=== PATIENT | male | born 1945 | race Caucasian/White ===

== ENCOUNTER 2016-07-26 14:09 | Emergency (ER) | payer OTHER ==
[~2016-07-26] VITALS: Ht 175.3 cm; Wt 111.3 kg
[~2016-07-26 14:09] MED LIST: ALBU0.08 INH; ALLO300T2 PO; ASPI81TA28 PO; ATRINS NEB; CHOL1TAB42 PO; CLC6 PO; DOXY100C2 PO; FINA5TAB PO; FURO80TA63 PO; INSDGIPEN SQ; IPRA1AER2 INH; METO2.5T PO; METO50TA7 PO; NVLGI/PEN SQ; OXGN; POLY335019 PO; POTA20TA16 PO; PRLSR20 PO; PROBCAP PO; SIMV20TA2 PO; SPIR25TA PO; TRAM-10 PO
[2016-07-26 14:13] VITALS: TEMP 36.6; Ht 175.3 cm; Wt 111.3 kg
--- NOTE | 2016-07-26 14:32 | EMERGENCY ROOM VISIT NOTE ---
History First contact with patient: 14:19 Chief Complaint: SHORTNESS OF BREATH Stated Complaint: SOB, IRREGULAR HEARTBEAT, HOT FLASHES, TIRED History of Present Illness The patient is a 70 year old type 2 diabetic male with COPD and CAD who presents to the Emergency Room with complaints of feeling unwell the last 2 days. He is unable to say exactly what is wrong, but says he just doesn't feel like himself. He reports he started to feel somewhat nauseated today. He denies chest pain or shortness of breath. He denies any leg swelling. He reports occasional "hot flashes". He does feel thirsty. He denies any changes to his urine or stool. He tried taking Dulcolax yesterday and now has been passing stool today. He reports his breathing feels "off". He also reports he had a sleep study here and since then was told to wear 2L nasal cannula at night. He reports he has a large right sided kidney stone and is waiting for lithotripsy, but needs to get his breathing under better control. Review of Systems See HPI for pertinent positives & negatives. A total of 10 systems reviewed and were otherwise negative. Past Medical/Surgical History Medical Problems: (1) Benign hypertension (2) Benign prostatic hyperplasia (3) Chest pain (4) Chronic obstructive pulmonary disease (5) CKD (chronic kidney disease), stage IV (6) Congestive heart failure (7) Coronary artery disease (8) Diabetes mellitus type 2 (9) History of renal calculi (10) Hyperlipidemia (11) Morbid obesity (12) Status post left heart catheterization (LHC) Surgical Problems: (1) Status post coronary artery bypass grafting (2) Status post hip replacement Family History Heart disease Hypertension Lung disease Social History Smoking Status: Former Smoker Alcohol Use: none Drug Use: none Marital Status: Housing Status: lives with family Occupation Status: retired Current/Historical Medications Scheduled Allopurinol (Zyloprim), 1.5 TAB PO QAM Aspirin (Aspirin Ec), 81 MG PO QAM Calcitriol (Rocaltrol Cap), 0.25 MCG PO 3XWK Cholecalciferol (D 1000), 2,000 UNITS PO BID Finasteride (Proscar), 5 MG PO QAM Furosemide (Lasix), 80 MG PO BID Insulin Aspart (Novolog Flexpen), SQ TID Insulin Glargine (Lantus Solostar), 40 UNITS SQ QPM Metolazone (Zaroxolyn), 2.5 MG PO WK Metoprolol Succ (Toprol Xl) (Toprol-Xl), 50 MG PO QAM Oxygen (Oxygen), 2 LITERS NA HS Potassium Ext Rel (Klor-Con), 30 MEQ PO BID Probiotic Product (Sembraire), 1 CAP PO QAM Simvastatin (Zocor), 20 MG PO QPM Spironolactone (Aldactone), 0.5 TAB PO QAM Scheduled PRN Albuterol Soln (Proventil 0.083% 2.5MG/3ML), 2.5 MG INH QID PRN for Wheezing Ipratropium Denhoff (Ipratropium Denhoff), 1 VIAL NEB QID PRN for Shortness of Breath Tramadol (Ultram), 50 MG PO Q6H PRN for Pain Allergies Coded Allergies: Prednisone (Verified Allergy, Unknown, UNKNOWN, 07/26/16) Physical Exam Vital Signs Date Time Temp Pulse Resp B/P Pulse Ox O2 Delivery O2 Flow Rate FiO2 07/26/16 19:03 79 20 131/65 94 07/26/16 18:39 79 20 131/65 94 Room Air 07/26/16 17:09 78 18 129/70 91 Room Air 07/26/16 16:14 91 Room Air 07/26/16 15:45 86 18 128/65 94 Room Air 07/26/16 14:56 73 16 123/69 94 Room Air 07/26/16 14:55 76 123/69 94 Room Air 75 123/70 80 133/63 07/26/16 14:35 94 Room Air 07/26/16 14:33 79 07/26/16 14:25 94 Room Air 07/26/16 14:13 36.6 70 20 144/69 94 Room Air Physical Exam GENERAL: Awake, alert, well-appearing, in no acute distress HENT: Normocephalic, atraumatic. Oropharynx unremarkable. EYES: Normal conjunctiva. Sclera non-icteric. NECK: Supple. No nuchal rigidity. FROM. No JVD. RESPIRATORY: Clear to auscultation. CARDIAC: Regular rate, normal rhythm. Extremities warm and well perfused. Pulses equal. ABDOMEN: Soft, non-distended. No tenderness to palpation. No rebound or guarding. No masses. RECTAL: Deferred. MUSCULOSKELETAL: Chest examination reveals no tenderness. The back is symmetrical on inspection without obvious abnormality. There is no CVA tenderness to palpation. No joint edema. LOWER EXTREMITIES: Calves are equal size bilaterally and non-tender. No edema. No discoloration. NEURO: Normal sensorium. No sensory or motor deficits noted. SKIN: No rash or jaundice noted. Medical Decision & Procedures ER Provider Diagnostic Interpretation: CT ANGIOGRAPHY OF THE CHEST, PULMONARY EMBOLUS PROTOCOL CLINICAL HISTORY: Worsening shortness of breath. COPD. COMPARISON STUDY: Chest radiographs April 24, 2016 and July 26, 2016. TECHNIQUE: Following IV administration of 106 mL of Optiray-320, helical axial images of the chest were obtained utilizing the pulmonary embolus protocol. Maximal intensity projections and sagittal and coronal reformats were viewed on an independent 3D workstation. IV contrast was administered without complication. CT DOSE: 712.88 mGy.cm FINDINGS: No pulmonary emboli are identified. There is moderate cardiomegaly. There are median sternotomy wires and changes consistent with bypass grafting. There is no evidence of thoracic aortic dissection. There is extensive coronary artery calcification. A small left pleural effusion has slightly increased in size since exam of January 09, 2013. This represents a chronic pleural effusion. There is pleural thickening and pleural calcification. Moderate emphysema is noted. There is no pneumothorax. Central airways are patent. There is no consolidation to suggest pneumonia. Associated left lower lobe opacity represents atelectasis. The bony thorax and upper abdomen are unremarkable. IMPRESSION: 1. No pulmonary emboli identified. 2. Moderate emphysema. No consolidation to suggest pneumonia. 3. Small chronic left pleural effusion with associated atelectasis. 4. Moderate cardiomegaly and extensive coronary artery calcification. Laboratory Results 07/26/16 14:46 Red Blood Count 4.74, Mean Corpuscular Volume 93.5, Mean Corpuscular Hemoglobin 30.8, Mean Corpuscular Hemoglobin Concent 33.0, Mean Platelet Volume 10.5, Neutrophils (%) (Auto) 77.6, Lymphocytes (%) (Auto) 14.1, Monocytes (%) (Auto) 6.6, Eosinophils (%) (Auto) 1.3, Basophils (%) (Auto) 0.2, Neutrophils # (Auto) 7.07, Lymphocytes # (Auto) 1.28, Monocytes # (Auto) 0.60, Eosinophils # (Auto) 0.12, Basophils # (Auto) 0.02 07/26/16 14:46 Test 07/26/16 14:46 07/26/16 15:00 07/26/16 16:29 White Blood Count 9.11 K/uL (4.8-10.8) Red Blood Count 4.74 M/uL (4.7-6.1) Hemoglobin 14.6 g/dL (14.0-18.0) Hematocrit 44.3 % (42-52) Mean Corpuscular Volume 93.5 fL (80-100) Mean Corpuscular Hemoglobin 30.8 pg (25-34) Mean Corpuscular Hemoglobin Concent 33.0 g/dl (32-36) Platelet Count 179 K/uL (130-400) Mean Platelet Volume 10.5 fL (7.4-10.4) Neutrophils (%) (Auto) 77.6 % Lymphocytes (%) (Auto) 14.1 % Monocytes (%) (Auto) 6.6 % Eosinophils (%) (Auto) 1.3 % Basophils (%) (Auto) 0.2 % Neutrophils # (Auto) 7.07 K/uL (1.4-6.5) Lymphocytes # (Auto) 1.28 K/uL (1.2-3.4) Monocytes # (Auto) 0.60 K/uL (0.11-0.59) Eosinophils # (Auto) 0.12 K/uL (0-0.5) Basophils # (Auto) 0.02 K/uL (0-0.2) RDW Standard Deviation 48.0 fL (36.4-46.3) RDW Coefficient of Variation 14.2 % (11.5-14.5) Immature Granulocyte % (Auto) 0.2 % Immature Granulocyte # (Auto) 0.02 K/uL (0.00-0.02) Anion Gap 7.0 mmol/L (3-11) Est Creatinine Clear Calc Drug Dose 55.6 ml/min Estimated GFR () 53.5 Estimated GFR (Non- 46.2 BUN/Creatinine Ratio 15.9 (10-20) Calcium Level 8.9 mg/dl (8.5-10.1) Total Bilirubin 0.6 mg/dl (0.2-1) Aspartate Amino Transf (AST/SGOT) 8 U/L (15-37) Alanine Aminotransferase (ALT/SGPT) 12 U/L (12-78) Alkaline Phosphatase 110 U/L (45-117) Total Creatine Kinase 28 U/L (39-308) Creatine Kinase MB 2.4 ng/ml (0.5-3.6) Creatine Kinase MB Ratio 8.6 (0-3.0) Troponin I < 0.015 ng/ml (0-0.045) Total Protein 7.2 gm/dl (6.4-8.2) Albumin 3.5 gm/dl (3.4-5.0) Globulin 3.7 gm/dl (2.5-4.0) Albumin/Globulin Ratio 0.9 (0.9-2) Thyroid Stimulating Hormone (TSH) 0.885 uIu/ml (0.300-4.500) Influenza Type A (RT-PCR) Neg for Influ A (NEG) Influenza Type A Antigen Neg for Influ A (NEG) Influenza Type B Antigen Neg for Influ B (NEG) Influenza Type B (RT-PCR) Neg for Influ B (NEG) Bedside Troponin I 0.000 ng/ml (0-0.045) Medications Administered Medications (Trade) Dose Ordered Sig/Hari Route Start Time Stop Time Status Last Admin Dose Admin Albuterol/ Ipratropium 3 ml 3 ml Q4R STAT INH 07/26/16 16:12 07/26/16 16:13 DC 07/26/16 16:28 3 ML Sodium Chloride (Nss 500ml) 500 ml @ 999 mls/hr Q31M STAT IV 07/26/16 17:42 07/26/16 18:12 DC 07/26/16 17:42 999 MLS/HR Ondansetron HCl (Zofran Inj) 4 mg NOW STAT IV 07/26/16 18:28 07/26/16 18:29 DC 07/26/16 18:37 4 MG ECG Indication: other Rhythm: normal sinus Findings: other (left anterior fascicular block) Comparison ECG Date: Compared to 05/14 - Similar ST abnormality ED Course 2:25: I evaluated the patient in room C12B. A complete history and physical were performed. 2:30: I ordered a CBC, CMP, CXR, POC Troponin, Flu antigen, and an EKG. 2:50: I discussed the case with Dr. Stuart. We added on a CPK and CK-MB and lab troponin. 3:30: I followed up on the patient, he was feeling the same. His labwork and CXR were unremarkable. 4:00: His flu was still pending. He was due for his nebulizer so a Duoneb was prescribed. He had an ambulatory trial and his saturations went to 91%. I also reviewed his outpatient pulmonology records. 5:30: His flu result was negative. We ordered a CT scan of the thorax to evaluate for PE. Medical Decision 70 yo M with multiple co-morbidities including severe COPD, diabetes, and coronary artery disease s/p CABG who presents with vague symptoms including intermittent fever, cough, and shortness of breath. Differential includes: acute on chronic exacerbation of COPD, PE, OH, influenza, or pneumonia. He had an IV placed and labs drawn. His labwork was unremarkable. His flu swab PCR was negative. He was able to ambulate independently. His reports a big issue of his is being unable to cough up all the mucus he accumulates, despite being on Mucinex. We then completed a CT chest to evaluate this which was normal - this was negative but a worsening pleural effusion compared to 2013. He also had some coronary calcification - which could be related but he did have a negative troponin and normal EKG, and no actual chest pain at any point. His differentials have been ruled out, including OH, COPD exacerbation, PE, pneumonia or influenza. He could have a viral infection overall. We considered giving a course of steroids but he reports he has adverse reactions to prednisone, as they make him feel unwell and very "jittery" and his did not feel safe taking care of him in that state. With extensive discussion, he was safe to go home and follow up with his PCP, [facility] [facility] Operator, and [facility]t Coater. He was discharged home in good condition. Impression Primary Impression: Shortness of breath Departure Information Dispostion Home / Self-Care Condition GOOD Referrals Dereje Wilcox PA-C Pilgram, Philip A., M.D. Patient Instructions My [facility] Resident Tracking Resident Involvement: Resident Care Provided Care Provided: Adult ED
[2016-07-26 14:35] VITALS: O2SAT 94
[2016-07-26 15:00] LABS: BASO % 0.2 %; BASO ABS # 0.02 K/uL (0-0.2); COMPLETE YES; EOS % 1.3 %; HEMATOCRIT 44.3 % (42-52); IG% 0.2 %; LYMPH % 14.1 %; LYMPH ABS # 1.28 K/uL (1.2-3.4); MEAN CELL VOLUME 93.5 fL (80-100); MEAN CORPUSCULAR HEMOGLOBIN 30.8 pg (25-34); MEAN PLATELET VOLUME 10.5 fL (7.4-10.4); MONO % 6.6 %; NEUT % 77.6 %; PLATELET COUNT 179 K/uL (130-400); RED BLOOD COUNT 4.74 M/uL (4.7-6.1); WHITE BLOOD COUNT 9.11 K/uL (4.8-10.8)
[2016-07-26 15:17] LABS: ALT/SGPT 12 U/L (12-78); AST/SGOT 8 U/L (15-37); BLOOD UREA NITROGEN 24 mg/dl (7-18); BUN/CREATININE RATIO 15.9 (10-20); CALCIUM 8.9 mg/dl (8.5-10.1); CARBON DIOXIDE 27 mmol/L (21-32); CHLORIDE 99 mmol/L (98-107); GLUCOSE 131 mg/dl (70-99); POTASSIUM 3.6 mmol/L (3.5-5.1); SODIUM 133 mmol/L (136-145)
[2016-07-26 15:25] LABS: ALB/GLOB RATIO 0.9 (0.9-2); ALKALINE PHOSPHATASE 110 U/L (45-117); CKMB/CK RATIO 8.6 (0-3.0); THYROID STIMULATING HORMONE 0.885 uIu/ml (0.300-4.500)
--- NOTE | 2016-07-26 15:34 | DIAGNOSTIC IMAGING REPORT ---
TWO VIEW CHEST CLINICAL HISTORY: Dyspnea. Diminished breath sounds at the left lung base.. FINDINGS: PA and lateral chest radiographs are compared to study dated 04/24/2016 and 08/21/2014. Correlation is made with abdominal CT dated 01/09/2013. The patient is status post midline sternotomy. The heart is enlarged and there is atherosclerotic calcification of the thoracic aorta. Chronic interstitial thickening is again noted. A chronic left pleural effusion/collection is similar to prior studies. There is associated left basilar consolidation. The right lung appears clear and there is no right-sided pleural effusion. There is no pneumothorax. The skeletal structures are osteopenic. Degenerative change and mild hyperkyphosis is seen in the thoracic spine. IMPRESSION: 1. Cardiomegaly without radiographic evidence of congestive failure. 2. A chronic pleural effusion/collection at the left lung base is similar to prior studies. This has been present dating back to at least the [address] scan. There is associated left basilar consolidation which likely represents atelectasis. 3. The right lung is grossly clear. Electronically signed by: Reggie Stone M.D. 07/26/2016 3:33 PM Dictated Date/Time: 07/26/2016 3:29 PM
[2016-07-26] MEDS ORDERED: ALBUT/IPRATROP 3MG/0.5MG NEB 3 ML VIAL INH STA (16:12)
[2016-07-26] MEDS ORDERED: CHOL100041 PO (16:13)
[2016-07-26] MEDS ORDERED: CALC0.2510 PO (16:13)
[2016-07-26 17:26] LABS: INFLUENZA A PCR Neg for Influ A (NEG); INFLUENZA B PCR Neg for Influ B (NEG)
[2016-07-26] MEDS ORDERED: OPTIRAY 320 IV PRN (17:30)
[2016-07-26] MEDS ORDERED: SODIUM CHLORIDE 0.9% 500ML 500 ML IV STA (17:42)
[2016-07-26] MEDS ORDERED: ONDANSETRON INJ 2 MG/ML 2 ML VIAL IV STA (18:28)
--- NOTE | 2016-07-26 18:32 | DIAGNOSTIC IMAGING REPORT ---
CT ANGIOGRAPHY OF THE CHEST, PULMONARY EMBOLUS PROTOCOL CLINICAL HISTORY: Worsening shortness of breath. COPD. COMPARISON STUDY: Chest radiographs April 24, 2016 and July 26, 2016. TECHNIQUE: Following IV administration of 106 mL of Optiray-320, helical axial images of the chest were obtained utilizing the pulmonary embolus protocol. Maximal intensity projections and sagittal and coronal reformats were viewed on an independent 3D workstation. IV contrast was administered without complication. CT DOSE: 712.88 mGy.cm FINDINGS: No pulmonary emboli are identified. There is moderate cardiomegaly. There are median sternotomy wires and changes consistent with bypass grafting. There is no evidence of thoracic aortic dissection. There is extensive coronary artery calcification. A small left pleural effusion has slightly increased in size since exam of January 09, 2013. This represents a chronic pleural effusion. There is pleural thickening and pleural calcification. Moderate emphysema is noted. There is no pneumothorax. Central airways are patent. There is no consolidation to suggest pneumonia. Associated left lower lobe opacity represents atelectasis. The bony thorax and upper abdomen are unremarkable. IMPRESSION: 1. No pulmonary emboli identified. 2. Moderate emphysema. No consolidation to suggest pneumonia. 3. Small chronic left pleural effusion with associated atelectasis. 4. Moderate cardiomegaly and extensive coronary artery calcification. Electronically signed by: Srinivasan Jacobs M.D. 07/26/2016 6:31 PM Dictated Date/Time: 07/26/2016 6:22 PM
[2016-07-26 19:03] VITALS: BP 131/65; PULSE 79; O2SAT 94
--- NOTE | 2016-07-26 21:24 | EMERGENCY ROOM VISIT NOTE ---
History Report prepared by Rita: Chidi Price Under the Supervision of: Dr. Blayne Gregory M.D. First contact with patient: 14:19 Chief Complaint: SHORTNESS OF BREATH Stated Complaint: SOB, IRREGULAR HEARTBEAT, HOT FLASHES, TIRED Nursing Triage Summary: Patient states he has hip pain and in general does not feel well. Patient reports extensive cardiac history and intermittent shortness of breath. Patient has +2 bilat lower extremity swelling History of Present Illness The patient is a 70 year old male who presents to the Emergency Room with complaints of constant shortness of breath for the past couple of days. The patient additionally complains of fevers. The patient states that he has a history of breathing troubles. The patient states that he currently wears 2L of oxygen at night, and he does not use any during the day. The patient's additionally states that the patient has been nauseous. He states that he has a history of a CABG and CAD. The patient additionally states that he has some leg swelling, however this is chronic. He states that he additionally has a history of bronchitis and pneumonia, and he states that he currently has a kidney stone. Pt denies LOC, headache, fevers, chills, diaphoresis, visual changes, neck pain, chest pain, vomiting, abdominal pain, back pain, melena, hematochezia , urinary symptoms, numbness, weakness, lymphadenopathy, rash, or other complaints. Source of History: patient, spouse/significant other Onset: couple days ago Position: other (global) Quality: other (shortness of breath) Timing: constant Associated Symptoms: + nausea Review of Systems See HPI for pertinent positives and negatives. A total of ten systems were reviewed and were otherwise negative. Past Medical & Surgical Medical Problems: (1) Benign hypertension (2) Benign prostatic hyperplasia (3) Chest pain (4) Chronic obstructive pulmonary disease (5) CKD (chronic kidney disease), stage IV (6) Congestive heart failure (7) Coronary artery disease (8) Diabetes mellitus type 2 (9) History of renal calculi (10) Hyperlipidemia (11) Morbid obesity (12) Status post left heart catheterization (LHC) Surgical Problems: (1) Status post coronary artery bypass grafting (2) Status post hip replacement Family History Heart disease Hypertension Lung disease Social History Smoking Status: Former Smoker Alcohol Use: none Drug Use: none Marital Status: Housing Status: lives with family Occupation Status: retired Current/Historical Medications Scheduled Allopurinol (Zyloprim), 1.5 TAB PO QAM Aspirin (Aspirin Ec), 81 MG PO QAM Calcitriol (Rocaltrol Cap), 0.25 MCG PO 3XWK Cholecalciferol (D 1000), 2,000 UNITS PO BID Finasteride (Proscar), 5 MG PO QAM Furosemide (Lasix), 80 MG PO BID Insulin Aspart (Novolog Flexpen), SQ TID Insulin Glargine (Lantus Solostar), 40 UNITS SQ QPM Metolazone (Zaroxolyn), 2.5 MG PO WK Metoprolol Succ (Toprol Xl) (Toprol-Xl), 50 MG PO QAM Oxygen (Oxygen), 2 LITERS NA HS Potassium Ext Rel (Klor-Con), 30 MEQ PO BID Probiotic Product (TripConnect), 1 CAP PO QAM Simvastatin (Zocor), 20 MG PO QPM Spironolactone (Aldactone), 0.5 TAB PO QAM Scheduled PRN Albuterol Soln (Proventil 0.083% 2.5MG/3ML), 2.5 MG INH QID PRN for Wheezing Ipratropium [place] (Ipratropium [place]), 1 VIAL NEB QID PRN for Shortness of Breath Tramadol (Ultram), 50 MG PO Q6H PRN for Pain Allergies Coded Allergies: Prednisone (Verified Allergy, Unknown, UNKNOWN, 07/26/16) Physical Exam Vital Signs Date Time Temp Pulse Resp B/P Pulse Ox O2 Delivery O2 Flow Rate FiO2 07/26/16 19:03 79 20 131/65 94 07/26/16 18:39 79 20 131/65 94 Room Air 07/26/16 17:09 78 18 129/70 91 Room Air 07/26/16 16:14 91 Room Air 07/26/16 15:45 86 18 128/65 94 Room Air 07/26/16 14:56 73 16 123/69 94 Room Air 07/26/16 14:55 76 123/69 94 Room Air 75 123/70 80 133/63 07/26/16 14:35 94 Room Air 07/26/16 14:33 79 07/26/16 14:25 94 Room Air 07/26/16 14:13 36.6 70 20 144/69 94 Room Air Physical Exam GENERAL: Awake, alert, tired-appearing, in no distress HENT: Normocephalic, atraumatic. Oropharynx unremarkable. EYES: Normal conjunctiva. Sclera non-icteric. NECK: Supple. No nuchal rigidity. FROM. No JVD. RESPIRATORY: Clear to auscultation. CARDIAC: Regular rate, normal rhythm. Extremities warm and well perfused. Pulses equal. ABDOMEN: Soft, non-distended. No tenderness to palpation. No rebound or guarding. No masses. RECTAL: Deferred. MUSCULOSKELETAL: Chest examination reveals no tenderness. The back is symmetrical on inspection without obvious abnormality. There is no CVA tenderness to palpation. No joint edema. LOWER EXTREMITIES: Some chronic venous discoloration in lower legs. 1+ lower extremity edema. Calves are equal size bilaterally and non-tender. NEURO: Normal sensorium. No sensory or motor deficits noted. SKIN: No rash or jaundice noted. Medical Decision & Procedures ER Provider Diagnostic Interpretation: X ray results as stated below per my interpretation and radiologist interpretation. Other radiology results as stated below per my review and radiologist interpretation TWO VIEW CHEST CLINICAL HISTORY: Dyspnea. Diminished breath sounds at the left lung base.. FINDINGS: PA and lateral chest radiographs are compared to study dated 04/24/2016 and 08/21/2014. Correlation is made with abdominal CT dated 01/09/2013. The patient is status post midline sternotomy. The heart is enlarged and there is atherosclerotic calcification of the thoracic aorta. Chronic interstitial thickening is again noted. A chronic left pleural effusion/collection is similar to prior studies. There is associated left basilar consolidation. The right lung appears clear and there is no right-sided pleural effusion. There is no pneumothorax. The skeletal structures are osteopenic. Degenerative change and mild hyperkyphosis is seen in the thoracic spine. IMPRESSION: 1. Cardiomegaly without radiographic evidence of congestive failure. 2. A chronic pleural effusion/collection at the left lung base is similar to prior studies. This has been present dating back to at least the [address] scan. There is associated left basilar consolidation which likely represents atelectasis. 3. The right lung is grossly clear. Electronically signed by: Reggie Stone M.D. 07/26/2016 3:33 PM Dictated Date/Time: 07/26/2016 3:[address] ANGIOGRAPHY OF THE CHEST, PULMONARY EMBOLUS PROTOCOL CLINICAL HISTORY: Worsening shortness of breath. COPD. COMPARISON STUDY: Chest radiographs April 24, 2016 and July 26, 2016. TECHNIQUE: Following IV administration of 106 mL of [id number]-[id number], helical axial images of the chest were obtained utilizing the pulmonary embolus protocol. Maximal intensity projections and sagittal and coronal reformats were viewed on an independent 3D workstation. IV contrast was administered without complication. CT DOSE: 712.88 mGy.cm FINDINGS: No pulmonary emboli are identified. There is moderate cardiomegaly. There are median sternotomy wires and changes consistent with bypass grafting. There is no evidence of thoracic aortic dissection. There is extensive coronary artery calcification. A small left pleural effusion has slightly increased in size since exam of January 09, 2013. This represents a chronic pleural effusion. There is pleural thickening and pleural calcification. Moderate emphysema is noted. There is no pneumothorax. Central airways are patent. There is no consolidation to suggest pneumonia. Associated left lower lobe opacity represents atelectasis. The bony thorax and upper abdomen are unremarkable. IMPRESSION: 1. No pulmonary emboli identified. 2. Moderate emphysema. No consolidation to suggest pneumonia. 3. Small chronic left pleural effusion with associated atelectasis. 4. Moderate cardiomegaly and extensive coronary artery calcification. Electronically signed by: Srinivasan Jacobs M.D. 07/26/2016 6:31 PM Dictated Date/Time: 07/26/2016 6:22 PM Laboratory Results 07/26/16 14:46 Red Blood Count 4.74, Mean Corpuscular Volume 93.5, Mean Corpuscular Hemoglobin 30.8, Mean Corpuscular Hemoglobin Concent 33.0, Mean Platelet Volume 10.5, Neutrophils (%) (Auto) 77.6, Lymphocytes (%) (Auto) 14.1, Monocytes (%) (Auto) 6.6, Eosinophils (%) (Auto) 1.3, Basophils (%) (Auto) 0.2, Neutrophils # (Auto) 7.07, Lymphocytes # (Auto) 1.28, Monocytes # (Auto) 0.60, Eosinophils # (Auto) 0.12, Basophils # (Auto) 0.02 07/26/16 14:46 Test 07/26/16 14:46 07/26/16 15:00 07/26/16 16:29 White Blood Count 9.11 K/uL (4.8-10.8) Red Blood Count 4.74 M/uL (4.7-6.1) Hemoglobin 14.6 g/dL (14.0-18.0) Hematocrit 44.3 % (42-52) Mean Corpuscular Volume 93.5 fL (80-100) Mean Corpuscular Hemoglobin 30.8 pg (25-34) Mean Corpuscular Hemoglobin Concent 33.0 g/dl (32-36) Platelet Count 179 K/uL (130-400) Mean Platelet Volume 10.5 fL (7.4-10.4) Neutrophils (%) (Auto) 77.6 % Lymphocytes (%) (Auto) 14.1 % Monocytes (%) (Auto) 6.6 % Eosinophils (%) (Auto) 1.3 % Basophils (%) (Auto) 0.2 % Neutrophils # (Auto) 7.07 K/uL (1.4-6.5) Lymphocytes # (Auto) 1.28 K/uL (1.2-3.4) Monocytes # (Auto) 0.60 K/uL (0.11-0.59) Eosinophils # (Auto) 0.12 K/uL (0-0.5) Basophils # (Auto) 0.02 K/uL (0-0.2) RDW Standard Deviation 48.0 fL (36.4-46.3) RDW Coefficient of Variation 14.2 % (11.5-14.5) Immature Granulocyte % (Auto) 0.2 % Immature Granulocyte # (Auto) 0.02 K/uL (0.00-0.02) Anion Gap 7.0 mmol/L (3-11) Est Creatinine Clear Calc Drug Dose 55.6 ml/min Estimated GFR () 53.5 Estimated GFR (Non- 46.2 BUN/Creatinine Ratio 15.9 (10-20) Calcium Level 8.9 mg/dl (8.5-10.1) Total Bilirubin 0.6 mg/dl (0.2-1) Aspartate Amino Transf (AST/SGOT) 8 U/L (15-37) Alanine Aminotransferase (ALT/SGPT) 12 U/L (12-78) Alkaline Phosphatase 110 U/L (45-117) Total Creatine Kinase 28 U/L (39-308) Creatine Kinase MB 2.4 ng/ml (0.5-3.6) Creatine Kinase MB Ratio 8.6 (0-3.0) Troponin I < 0.015 ng/ml (0-0.045) Total Protein 7.2 gm/dl (6.4-8.2) Albumin 3.5 gm/dl (3.4-5.0) Globulin 3.7 gm/dl (2.5-4.0) Albumin/Globulin Ratio 0.9 (0.9-2) Thyroid Stimulating Hormone (TSH) 0.885 uIu/ml (0.300-4.500) Influenza Type A (RT-PCR) Neg for Influ A (NEG) Influenza Type A Antigen Neg for Influ A (NEG) Influenza Type B Antigen Neg for Influ B (NEG) Influenza Type B (RT-PCR) Neg for Influ B (NEG) Bedside Troponin I 0.000 ng/ml (0-0.045) Laboratory results reviewed by me Medications Administered Medications (Trade) Dose Ordered Sig/Hari Route Start Time Stop Time Status Last Admin Dose Admin Albuterol/ Ipratropium 3 ml 3 ml Q4R STAT INH 07/26/16 16:12 07/26/16 16:13 DC 07/26/16 16:28 3 ML Sodium Chloride (Nss 500ml) 500 ml @ 999 mls/hr Q31M STAT IV 07/26/16 17:42 07/26/16 18:12 DC 07/26/16 17:42 999 MLS/HR Ondansetron HCl (Zofran Inj) 4 mg NOW STAT IV 07/26/16 18:28 07/26/16 18:29 DC 07/26/16 18:37 4 MG ECG Indication: SOB/dyspnea Rate (beats per minute): 78 Rhythm: normal sinus Findings: LAFB, nonspecific-ST abn ED Course 1508: The patient was evaluated in room C12. A complete history and physical exam was performed. 1557: The resident reevaluated the patient, and he was doing well 1612: DuoNeb 3ml INH 1742: Sodium Chloride 500 ml @ 999 mls/hr IV 1828: Zofran Inj 4mg IV 1842: The resident reevaluated the patient. Discussed results and discharge instructions: He verbalized understanding and agreement. The patient is ready for discharge. Medical Decision Triage Nursing notes reviewed. The patient's presentation and history were concerning for malaise and intermittent shortness of breath. Etiologies such as pneumonia, COPD, reactive airway disease, CHF, cardiac ischemia, pulmonary embolism, pneumothorax, musculoskeletal, infections, gastrointestinal, as well as others were entertained. The patient was evaluated. He notes no specific symptoms other than feeling some general malaise. He shortness breath is intermittent. He occasionally has some hot flashes. His physical examination did not reveal any significant abnormalities. He was not hypoxic. The patient was ambulated and had a normal ambulatory pulse ox. Chest x-ray as above. His CBC was unremarkable. Chemistry, LFTs, cardiac markers and TSH were negative. Because of this patient 's symptoms includes testing was performed and was negative. He also had a chest CT performed and this revealed some chronic appearing changes but no evidence of acute abnormality. The patient seems to have a component of COPD. He was treated with a DuoNeb. The patient states he cannot tolerate prednisone which is unfortunate as I believe this would help him. The patient will need close outpatient follow-up. No indication for hospital admission at this point in time. The patient does not get any chest symptoms with exertion to suggest atypical angina. Repeat troponin was 0. The patient was seen and examined with Dr. Maira Doherty, resident physician. We discussed the case and treatments ordered, reviewed the results, and determine the disposition. Please refer to the resident's note for additional details. I have been directly involved with the management and disposition as well as independently evaluated the patient as documented in this note. By the evaluation outlined above other emergent etiologies such as those listed in the differential, as well as others, were deemed relatively unlikely. The informed about the findings as listed above. All questions were answered and they were a pleased with the treatment. Return instructions were outlined and the patient was discharged in stable condition. The patient was referred to his dispatcher electric power and check writer for follow-up for a recheck of the current condition. The chart was completed utilizing [employer] Speech voice recognition software. Grammatical errors, random word insertions, pronoun errors, and incomplete sentences are an occasional consequence of this system due to software limitations, ambient noise, and hardware issues. Any formal questions or concerns about the content, text, or information contained within the body of this dictation should be directly addressed to the physician for clarification. Impression Primary Impression: Malaise Additional Impression: Shortness of breath Scribe Attestation The scribe's documentation has been prepared under my direction and personally reviewed by me in its entirety. I confirm that the note above accurately reflects all work, treatment, procedures, and medical decision making performed by me. Departure Information Dispostion Home / Self-Care Referrals No Doctor, Assigned (PCP) Forms HOME CARE DOCUMENTATION FORM, IMPORTANT VISIT INFORMATION Patient Instructions Angina, COPD, My [facility] Additional Instructions Follow up with your Take Out Waiter/Waitress AND Oral Health Therapist within the next week. Make sure to discuss your symptoms with them as well and the results of your CT scan should be sent to them as well. Return to the ED if you have any worsening breathing difficulties, chest pain, or develop a new fever or cough. Problem Qualifiers
[2016-09-04] MEDS ORDERED: SENN8.6T7 PO (11:22)
[2016-10-12] MEDS ORDERED: POTA20TA16 PO (09:31)
[2016-10-12] MEDS ORDERED: INSDGI SC (09:31)
[2016-10-12] MEDS ORDERED: OMEP40CA41 PO (09:31)
[2016-11-11] MEDS ORDERED: PRED10TA PO (14:29)
== END 2016-07-26 19:04 | disposition home or self-care (01) ==
LOC: C.EDB 14:10 → C.EDC 19:04
DX: R06.02 Shortness of breath (principal); E11.9 Type 2 diabetes mellitus without complications; J44.9 Chronic obstructive pulmonary disease, unspecified; N18.4 Chronic kidney disease, stage 4 (severe); I12.9 Hypertensive chronic kidney disease with stage 1 through stage 4 chronic kidney disease, or unspecified chronic kidney disease; I25.10 Atherosclerotic heart disease of native coronary artery without angina pectoris; Z87.442 Personal history of urinary calculi; E78.5 Hyperlipidemia, unspecified; E66.01 Morbid (severe) obesity due to excess calories; Z95.1 Presence of aortocoronary bypass graft; Z96.649 Presence of unspecified artificial hip joint; Z82.49 Family history of ischemic heart disease and other diseases of the circulatory system; Z87.891 Personal history of nicotine dependence; Z79.82 Long term (current) use of aspirin; Z79.4 Long term (current) use of insulin; Z79.899 Other long term (current) drug therapy

== ENCOUNTER 2016-08-15 10:58 | Emergency (ER) | payer OTHER ==
[~2016-08-15] VITALS: Ht 175.3 cm; Wt 108.0 kg
[~2016-08-15 10:58] MED LIST changes: +CALC0.2510 PO; +CHOL100041 PO; -CHOL1TAB42 PO; -CLC6 PO; -DOXY100C2 PO; -IPRA1AER2 INH; -POLY335019 PO; -PRLSR20 PO
[2016-08-15 11:11] VITALS: TEMP 36.8; Ht 175.3 cm; Wt 108.0 kg
[2016-08-15] MEDS ORDERED: ALBINS/ INH (11:50)
[2016-08-15] MEDS ORDERED: CHOL20005 PO (11:50)
[2016-08-15] MEDS ORDERED: ACET10SO3 NEB (12:56)
--- NOTE | 2016-08-15 12:57 | EMERGENCY ROOM VISIT NOTE ---
History Report prepared by Rita: Kavita Lopez Under the Supervision of: Dr. Dwayne Castellano M.D. First contact with patient: 12:06 Chief Complaint: CONGESTION Stated Complaint: MUCUS GETTING CAUGHT IN THROAT-CAN'T GET RID OF IT Nursing Triage Summary: pt reports was at dr melendez the other trying solution on him but is making him worse. pt reports has bad lungs , "abunch of stuff in chest cannot get it out " no cough. feels sob gargling with salt water no relief History of Present Illness The patient is a 70 year old male who presents to the Emergency Room via with complaints of worsening congestion with onset 2-3 months ago. The patient states that he has a history of COPD and has been following with a role player. For this congestion, the patient was advised to use a saline solution along with his nebulizer, but the patient states that this has made his congestion worse. The patient has tried gargling with salt water and using a nebulizer without improvement. He states that he would like the mucous to be suctioned out of his lungs. The patient has had some CT scans. The patient denies a history of stroke, fevers, weakness in his arms or legs, recent falls. The patient takes a baby aspirin daily. Additionally, the patient has a history of diabetes and states that his blood sugar levels have been within his normal range. Source of History: patient Onset: 2-3 months ago Position: chest Quality: other (congestion) Timing: worsening Associated Symptoms: No fevers, No numbness, No weakness Review of Systems See HPI for pertinent positives & negatives. A total of 10 systems reviewed and were otherwise negative. Past Medical & Surgical Medical Problems: (1) Benign hypertension (2) Benign prostatic hyperplasia (3) Chest pain (4) Chronic obstructive pulmonary disease (5) CKD (chronic kidney disease), stage IV (6) Congestive heart failure (7) Coronary artery disease (8) Diabetes mellitus type 2 (9) History of renal calculi (10) Hyperlipidemia (11) Morbid obesity (12) Status post left heart catheterization (LHC) Surgical Problems: (1) Status post coronary artery bypass grafting (2) Status post hip replacement Family History Heart disease Hypertension Lung disease Social History Smoking Status: Former Smoker Alcohol Use: none Drug Use: none Marital Status: Housing Status: lives with family Occupation Status: retired Current/Historical Medications Scheduled Albuterol Sulf (Proventil 0.083% 2.5MG/3ML), 2.5 MG INH QID Allopurinol (Zyloprim), 1.5 TAB PO QAM Aspirin (Aspirin Ec), 81 MG PO QAM Calcitriol (Rocaltrol Cap), 0.25 MCG PO 3XWK Cholecalciferol (Vitamin D3), 2,000 UNITS PO BID Finasteride (Proscar), 5 MG PO QAM Furosemide (Lasix), 80 MG PO BID Insulin Aspart (Novolog Flexpen), SQ TID Insulin Glargine (Lantus Solostar), 40 UNITS SQ QPM Metolazone (Zaroxolyn), 2.5 MG PO WK Metoprolol Succ (Toprol Xl) (Toprol-Xl), 50 MG PO QAM Oxygen (Oxygen), 2 LITERS NA HS Potassium Ext Rel (Klor-Con), 30 MEQ PO BID Probiotic Product (Blendspace), 1 CAP PO QAM Simvastatin (Zocor), 20 MG PO QPM Spironolactone (Aldactone), 12.5 MG PO QAM Scheduled PRN Acetylcysteine (Acetylcysteine), 10 ML NEB TID PRN for Congestion Ipratropium [place] (Ipratropium Met[place]), 1 VIAL NEB QID PRN for Shortness of Breath Tramadol (Ultram), 50 MG PO Q6H PRN for Pain Allergies Coded Allergies: Prednisone (Verified Allergy, Unknown, UNKNOWN, 07/26/16) Physical Exam Vital Signs Date Time Temp Pulse Resp B/P Pulse Ox O2 Delivery O2 Flow Rate FiO2 08/15/16 13:20 76 18 141/71 94 08/15/16 11:11 36.8 80 20 136/75 93 Room Air Physical Exam GENERAL: Patient is mildly anxious appearing and in no acute distress. HEENT: No acute trauma, normocephalic atraumatic, mucous membranes moist, no nasal congestion, no scleral icterus. NECK: No stridor, no adenopathy, no meningismus, trachea is midline. LUNGS: No dyspnea. Clear to auscultation and equal bilaterally. No wheeze, no rhonchi. HEART: Regular rate and rhythm. No murmurs, rubs, gallops appreciated. ABDOMEN: Soft, nontender, bowel sounds positive, no masses appreciated, no peritonitis. BACK: No midline tenderness, no CVA tenderness EXTREMITIES: Normal motion all extremities, no cyanosis, no edema. NEUROLOGIC: Alert and oriented, no acute motor or sensory deficits, no focal weakness, cranial nerves grossly intact. SKIN: No rash, no jaundice, no diaphoresis. Medical Decision & Procedures ED Course 0008: The patient was evaluated in room C7. A complete history and physical exam was performed. 1225: Respiratory notes that they will not deep suction the patient as he has his own cough reflex. Medical Decision 70 yr old male arrives with complaint of feeling like he cant clear secretions from chest. This has been ongoing for last several months with previous ENT, Pulm, PCP and ER evaluations that have included scopes, CT chest, CT neck and multiple labs/imaging. Multiple meds attempted as outpatient and symptoms continue. Nothing severely acute today just felt that he could come over and get suctioned which apparently his PCP advised. He is awake, breathing comfortably, able to cough and notes gag reflex severe which means he is not candidate for deep suctioning. I can not do bronchoscopy and patient is not in need of emergent one, especially given he makes clear ongoing for months. He has not had bronch yet and likely needs this as outpatient. He may require MRI brain/neck to rule out stroke/neuro issue given DMII. May require Endoscopy as well. Stable and in no distress. Willing to try mucomyst via his nebulizer as this has yet to be tried. He is in no need of acute intubation nor bipap nor is he requiring NC O2. He has had this for months thus I do not see indication to do new testing emergently. Discussed symptoms requiring return and stressed importance of PCP follow up. Impression Primary Impression: Globus sensation Scribe Attestation The scribe's documentation has been prepared under my direction and personally reviewed by me in its entirety. I confirm that the note above accurately reflects all work, treatment, procedures, and medical decision making performed by me. Departure Information Dispostion Home / Self-Care Prescriptions Acetylcysteine (ACETYLCYSTEINE) 10 % Marium 10 ML NEB TID Y for Congestion, #90 VIAL Prov: Dwayne Castellano M.D. 08/15/16 Referrals Neri Hatch M.D. (PCP) Patient Instructions My [facility] Additional Instructions Please follow up with your primary care provider and role player. Discuss having the following testing... Bronchoscopy Endoscopy MRI Brain and or Neck Return immediately if worsening breathing, blue lips, passing out, inability to swallow or other concerns.
[2016-08-15 13:20] VITALS: BP 141/71; PULSE 76; O2SAT 94
[2016-09-04] MEDS ORDERED: SENN8.6T7 PO (11:22)
[2016-10-12] MEDS ORDERED: INSDGI SC (09:31)
[2016-10-12] MEDS ORDERED: OMEP40CA41 PO (09:31)
[2016-10-12] MEDS ORDERED: POTA20TA16 PO (09:31)
[2016-11-11] MEDS ORDERED: PRED10TA PO (14:29)
== END 2016-08-15 13:41 | disposition home or self-care (01) ==
LOC: C.EDB 11:00 → C.EDC 13:41
DX: F45.8 Other somatoform disorders (principal); I10 Essential (primary) hypertension; J44.9 Chronic obstructive pulmonary disease, unspecified; N18.4 Chronic kidney disease, stage 4 (severe); E11.22 Type 2 diabetes mellitus with diabetic chronic kidney disease; E78.5 Hyperlipidemia, unspecified; E66.01 Morbid (severe) obesity due to excess calories; Z95.1 Presence of aortocoronary bypass graft; Z96.649 Presence of unspecified artificial hip joint; Z79.82 Long term (current) use of aspirin; Z79.4 Long term (current) use of insulin

== ENCOUNTER 2016-08-20 09:24 | Emergency (ER) | payer OTHER ==
[~2016-08-20] VITALS: Ht 175.3 cm; Wt 107.4 kg
[~2016-08-20 09:24] MED LIST changes: +ACET10SO3 NEB; +ALBINS/ INH; -ALBU0.08 INH; -CHOL100041 PO; +CHOL20005 PO
[2016-08-20 09:29] VITALS: TEMP 36.8; Ht 175.3 cm; Wt 107.4 kg
[2016-08-20] MEDS ORDERED: ALBUT/IPRATROP 3MG/0.5MG NEB 3 ML VIAL INH STA (09:57)
[2016-08-20 09:59] VITALS: O2SAT 98
--- NOTE | 2016-08-20 10:21 | EMERGENCY ROOM VISIT NOTE ---
History Report prepared by Rita: Alex Doss Under the Supervision of: Dr. Kj Hilliard M.D. First contact with patient: 10:11 Chief Complaint: REFERRED BY DOCTOR Stated Complaint: SORE THROAT, CAN'T BREATH, PHLEM IN THROAT History of Present Illness The patient is a 70 year old male who presents to the Emergency Room with complaints of persistent and worsening phlegm in throat that started about 4 months ago. Associated symptoms include a sore throat and shortness of breath. The patient was referred to the ED by his PCP. The patient is scheduled for a bronchoscopy on August 31 but he does not believe he can wait this long. The patient is currently being treated with Mucinex and Albuterol breathing treatments. He denies additional pain, coughing, fevers, or additional associated symptoms. The patient has a history of an TX and CHF Source of History: patient Onset: 4 months ago Position: throat Timing: worsening, other (Persistent ) Modifying Factors (Worsening): other (None) Associated Symptoms: + SOB, + sorethroat, No cough, No fevers Review of Systems All systems have been listed, reviewed, and are negative other than those previously mentioned. Please see Additional Medical History Sheet. Past Medical & Surgical Medical Problems: (1) Benign hypertension (2) Benign prostatic hyperplasia (3) Chest pain (4) Chronic obstructive pulmonary disease (5) CKD (chronic kidney disease), stage IV (6) Congestive heart failure (7) Coronary artery disease (8) Diabetes mellitus type 2 (9) History of renal calculi (10) Hyperlipidemia (11) Morbid obesity (12) Status post left heart catheterization (LHC) Surgical Problems: (1) Status post coronary artery bypass grafting (2) Status post hip replacement Family History Heart disease Hypertension Lung disease Social History Smoking Status: Former Smoker Alcohol Use: none Drug Use: none Marital Status: Housing Status: lives with family Occupation Status: retired Current/Historical Medications Scheduled Albuterol Sulf (Proventil 0.083% 2.5MG/3ML), 2.5 MG INH QID Allopurinol (Zyloprim), 1.5 TAB PO QAM Aspirin (Aspirin Ec), 81 MG PO QAM Calcitriol (Rocaltrol Cap), 0.25 MCG PO 3XWK Cholecalciferol (Vitamin D3), 2,000 UNITS PO BID Finasteride (Proscar), 5 MG PO QAM Furosemide (Lasix), 80 MG PO BID Insulin Aspart (Novolog Flexpen), SQ TID Insulin Glargine (Lantus Solostar), 40 UNITS SQ QPM Metolazone (Zaroxolyn), 2.5 MG PO WK Metoprolol Succ (Toprol Xl) (Toprol-Xl), 50 MG PO QAM Oxygen (Oxygen), 2 LITERS NA HS Potassium Ext Rel (Klor-Con), 30 MEQ PO BID Probiotic Product (Flaviar), 1 CAP PO QAM Simvastatin (Zocor), 20 MG PO QPM Spironolactone (Aldactone), 12.5 MG PO QAM Scheduled PRN Acetylcysteine (Acetylcysteine), 10 ML NEB TID PRN for Congestion Ipratropium [place] (Ipratropium [place]), 1 VIAL NEB QID PRN for Shortness of Breath Tramadol (Ultram), 50 MG PO Q6H PRN for Pain Allergies Coded Allergies: Prednisone (Verified Allergy, Unknown, UNKNOWN, 08/20/16) Physical Exam Vital Signs Date Time Temp Pulse Resp B/P Pulse Ox O2 Delivery O2 Flow Rate FiO2 08/20/16 13:00 109/81 08/20/16 12:09 69 18 123/62 95 Room Air 08/20/16 09:59 98 Nasal Cannula 2.0 08/20/16 09:59 98 Nasal Cannula 2.0 08/20/16 09:58 78 08/20/16 09:29 36.8 75 20 128/80 93 Room Air Physical Exam GENERAL: Patient is on supplemental oxygen via nasal cannula during exam. Patient awake, alert, oriented x 3. Patient follows commands. Patient does not appear toxic. Patient is adequately hydrated and well-nourished. SKIN: No erythema, pallor, cyanosis or rash HEENT: Normal head, pupils equal, reactive to light and accommodation. Oral cavity and posterior pharynx appear normal with no significant swelling, erythema, or masses. Neck: Without adenopathy, no neck vein distention. LUNGS: Clear to auscultation. No wheezes, no rales, no rhonchi. HEART: No murmurs. No gallops. No rubs CHEST: Midline well healing sternotomy scar. ABDOMEN: Obese. No masses, no rebound, no hepatomegaly or splenomegaly. EXTREMITIES: Chronic stasis changes to bilateral lower extremities. 1+ bilateral pedal edema, no pretibial edema. No signs of trauma. No calf or thigh tenderness. NEUROLOGIC: Cranial nerves II-XII within normal limits. No gross motor sensory function deficits. Medical Decision & Procedures ER Provider Diagnostic Interpretation: Radiology results as stated below per my review and radiologist interpretation: CHEST 2 VIEWS ROUTINE ADDENDUM Addendum: There is a speech recognition error. The fifth sentence of the findings should read as follows: There is no acute parenchymal consolidation. Electronically signed by: Gopi Ramos M.D. 08/20/2016 11:59 AM Dictated Date/Time: 08/20/2016 11:58 AM ORIGINAL REPORT CLINICAL HISTORY: sob COMPARISON STUDY: 07/26/2016 FINDINGS: The heart is enlarged. There are postsurgical changes of a midline sternotomy. There is chronic left basilar pleural thickening/fluid.[ There are minor chronic left basilar atelectatic changes. There is no acute rectal consolidation. There is no failure. There is pulmonary emphysema. IMPRESSION: No active disease in the chest. Stable cardiomegaly. Stable chronic left basilar pleural changes. Electronically signed by: Gopi Ramos M.D. 08/20/2016 11:08 AM Dictated Date/Time: 08/20/2016 11:07 AM Laboratory Results 08/20/16 10:00 Red Blood Count 4.85, Mean Corpuscular Volume 93.8, Mean Corpuscular Hemoglobin 30.3, Mean Corpuscular Hemoglobin Concent 32.3, Mean Platelet Volume 11.4, Neutrophils (%) (Auto) 78.4, Lymphocytes (%) (Auto) 13.4, Monocytes (%) (Auto) 6.4, Eosinophils (%) (Auto) 1.4, Basophils (%) (Auto) 0.3, Neutrophils # (Auto) 6.14, Lymphocytes # (Auto) 1.05, Monocytes # (Auto) 0.50, Eosinophils # (Auto) 0.11, Basophils # (Auto) 0.02 08/20/16 10:00 Test 08/20/16 10:00 White Blood Count 7.83 K/uL (4.8-10.8) Red Blood Count 4.85 M/uL (4.7-6.1) Hemoglobin 14.7 g/dL (14.0-18.0) Hematocrit 45.5 % (42-52) Mean Corpuscular Volume 93.8 fL (80-100) Mean Corpuscular Hemoglobin 30.3 pg (25-34) Mean Corpuscular Hemoglobin Concent 32.3 g/dl (32-36) Platelet Count 172 K/uL (130-400) Mean Platelet Volume 11.4 fL (7.4-10.4) Neutrophils (%) (Auto) 78.4 % Lymphocytes (%) (Auto) 13.4 % Monocytes (%) (Auto) 6.4 % Eosinophils (%) (Auto) 1.4 % Basophils (%) (Auto) 0.3 % Neutrophils # (Auto) 6.14 K/uL (1.4-6.5) Lymphocytes # (Auto) 1.05 K/uL (1.2-3.4) Monocytes # (Auto) 0.50 K/uL (0.11-0.59) Eosinophils # (Auto) 0.11 K/uL (0-0.5) Basophils # (Auto) 0.02 K/uL (0-0.2) RDW Standard Deviation 48.3 fL (36.4-46.3) RDW Coefficient of Variation 14.2 % (11.5-14.5) Immature Granulocyte % (Auto) 0.1 % Immature Granulocyte # (Auto) 0.01 K/uL (0.00-0.02) Anion Gap 8.0 mmol/L (3-11) Est Creatinine Clear Calc Drug Dose 51.2 ml/min Estimated GFR () 49.5 Estimated GFR (Non- 42.7 BUN/Creatinine Ratio 11.0 (10-20) Calcium Level 9.2 mg/dl (8.5-10.1) Total Bilirubin 0.7 mg/dl (0.2-1) Aspartate Amino Transf (AST/SGOT) 6 U/L (15-37) Alanine Aminotransferase (ALT/SGPT) 15 U/L (12-78) Alkaline Phosphatase 113 U/L (45-117) Total Protein 7.4 gm/dl (6.4-8.2) Albumin 3.8 gm/dl (3.4-5.0) Globulin 3.6 gm/dl (2.5-4.0) Albumin/Globulin Ratio 1.1 (0.9-2) Laboratory results as stated above per my review. Medications Administered Medications (Trade) Dose Ordered Sig/Hari Route Start Time Stop Time Status Last Admin Dose Admin Albuterol/ Ipratropium (Duoneb) 3 ml NOW STAT INH 08/20/16 09:57 08/20/16 09:59 DC 08/20/16 10:10 3 ML ECG Indication: SOB/dyspnea Rate (beats per minute): 70 Rhythm: normal sinus Findings: no acute ischemic change, no ectopy, other (Left anterior vesicular block ) ED Course 1013: Past medical records reviewed. The patient was evaluated in room B5. A complete history and physical examination was performed. 1157: I discussed the patient's case with Dr. Garcia (Filter Machine Operator). He does not believe the patient needs a bronchoscopy at this time. 1201: I updated the patient of the treatment plan. I discussed why he is unable to receive a bronchoscopy today. The patient is agreeable at this time. 1205: We are awaiting Strep Test results. 1241: Strep test negative. 1254: Upon reevaluation, the patient appeared to have improvement of his symptoms. I discussed today's findings with the patient. He verbalized agreement of the treatment plan. He was discharged home. Medical Decision Nurses notes reviewed. Medical history sheet reviewed. Differential diagnosis includes but is not limited to: COPD, Pneumonia, Bronchiectasis, Congestive Failure Multiple labs, EKG and imaging were obtained. Please see above. The patient does not appear to have any new findings on his x-ray. Strep test is negative. Pulse ox was 94% on room air. I discussed care with Dr. Garcia over the phone. The patient can safely return home but will need a follow-up with the pulmonology office. Consults Time Called: 1150 Consulting Physician: Dr. Garcia (Filter Machine Operator) Returned Call: 1157 I discussed the patient's case with Dr. Garcia (Filter Machine Operator). He does not believe the patient needs a bronchoscopy at this time. Impression Primary Impression: COPD (chronic obstructive pulmonary disease) Scribe Attestation The scribe's documentation has been prepared under my direction and personally reviewed by me in its entirety. I confirm that the note above accurately reflects all work, treatment, procedures, and medical decision making performed by me. Departure Information Dispostion Home / Self-Care Forms HOME CARE DOCUMENTATION FORM, IMPORTANT VISIT INFORMATION, WORK / SCHOOL INSTRUCTIONS Patient Instructions My [facility] Additional Instructions Continue all of your current medications as prescribed. Use a vaporizer in your bedroom. Use throat lozenges as needed. Follow-up with Dr. Kohler, [facility] or Dr. Brent Garcia.
[2016-08-20 11:04] LABS: CALCIUM 9.2 mg/dl (8.5-10.1); CREATININE 1.6 mg/dl (0.60-1.40)
[2016-08-20 11:07] LABS: ALB/GLOB RATIO 1.1 (0.9-2)
--- NOTE | 2016-08-20 11:10 | DIAGNOSTIC IMAGING REPORT ---
ADDENDUM Addendum: There is a speech recognition error. The fifth sentence of the findings should read as follows: There is no acute parenchymal consolidation. Electronically signed by: Gopi Ramos M.D. 08/20/2016 11:59 AM Dictated Date/Time: 08/20/2016 11:58 AM ORIGINAL REPORT CHEST 2 VIEWS ROUTINE CLINICAL HISTORY: sob COMPARISON STUDY: 07/26/2016 FINDINGS: The heart is enlarged. There are postsurgical changes of a midline sternotomy. There is chronic left basilar pleural thickening/fluid.[ There are minor chronic left basilar atelectatic changes. There is no acute rectal consolidation. There is no failure. There is pulmonary emphysema. IMPRESSION: No active disease in the chest. Stable cardiomegaly. Stable chronic left basilar pleural changes. Electronically signed by: Gopi Ramos M.D. 08/20/2016 11:08 AM Dictated Date/Time: 08/20/2016 11:07 AM
[2016-08-20 11:33] LABS: BASO % 0.3 %; BASO ABS # 0.02 K/uL (0-0.2); COMPLETE YES; EOS % 1.4 %; HEMATOCRIT 45.5 % (42-52); IG% 0.1 %; LYMPH % 13.4 %; LYMPH ABS # 1.05 K/uL (1.2-3.4); MEAN CELL VOLUME 93.8 fL (80-100); MEAN CORPUSCULAR HEMOGLOBIN 30.3 pg (25-34); MEAN CORPUSCULAR HGB CONC 32.3 g/dl (32-36); MEAN PLATELET VOLUME 11.4 fL (7.4-10.4); MONO % 6.4 %; NEUT % 78.4 %; PLATELET COUNT 172 K/uL (130-400); RED BLOOD COUNT 4.85 M/uL (4.7-6.1); WHITE BLOOD COUNT 7.83 K/uL (4.8-10.8)
[2016-08-20 12:09] VITALS: PULSE 69; O2SAT 95
[2016-08-20 13:00] VITALS: BP 109/81
[2016-09-04] MEDS ORDERED: SENN8.6T7 PO (11:22)
[2016-10-12] MEDS ORDERED: OMEP40CA41 PO (09:31)
[2016-10-12] MEDS ORDERED: POTA20TA16 PO (09:31)
[2016-10-12] MEDS ORDERED: INSDGI SC (09:31)
[2016-11-11] MEDS ORDERED: PRED10TA PO (14:29)
== END 2016-08-20 13:00 | disposition home or self-care (01) ==
LOC: C.EDB 09:25
DX: J44.9 Chronic obstructive pulmonary disease, unspecified (principal); I25.2 Old myocardial infarction; I50.9 Heart failure, unspecified; N18.4 Chronic kidney disease, stage 4 (severe); I12.9 Hypertensive chronic kidney disease with stage 1 through stage 4 chronic kidney disease, or unspecified chronic kidney disease; E11.9 Type 2 diabetes mellitus without complications; Z87.442 Personal history of urinary calculi; E66.01 Morbid (severe) obesity due to excess calories; Z68.34 Body mass index [BMI] 34.0-34.9, adult; Z95.1 Presence of aortocoronary bypass graft; Z96.649 Presence of unspecified artificial hip joint; Z82.49 Family history of ischemic heart disease and other diseases of the circulatory system; Z87.891 Personal history of nicotine dependence; Z79.82 Long term (current) use of aspirin; Z79.4 Long term (current) use of insulin; Z79.899 Other long term (current) drug therapy

== ENCOUNTER → 2016-08-31 | Day surgery (SDC) | payer OTHER ==
[~2016-08-31] VITALS: Ht 175.3 cm; Wt 104.0 kg
[~2016-08-31] MED LIST changes: +ALBUT/IPRATROP 3MG/0.5MG NEB 3 ML VIAL INH SCH; +COLCPOW6 PO; +DOCU-94 PO; +INSDGI SC; +LINA1CAP PO; +LPT/40 PO; +LSX80 PO; +OMEP40CA41 PO; +POLY335019 PO; +PRED10TA PO; +SENN8.6T7 PO; +ZRX25 PO
--- NOTE | 2016-08-31 06:37 | History and Physical ---
History & Physical Date Aug 31, 2016. Chief Complaint progressive dyspnea on exertion and inability to clear his mucus secretions. History of Present Illness 70-year-old gentleman here for pre bronchoscopic evaluation: Patient is being evaluated because of progressive dyspnea on exertion and inability to clear his mucus secretions. He has very severe COPD with an FEV1 of 27 % predicted based off ATS standards. CT scan also shows left lower lobe loculated effusion as well as possible tracheal polyps seen on CT angiogram from 07/26/2016, personally reviewed. At this time we proceed forward with bronchoscopy and bronchial alveolar lavage. On the day his arrival to the hospital will also evaluate with thoracic ultrasonography and possible thoracentesis. This spoken to the patient is at length about the indications for both procedures and they agree. Spirometry 06/11/2016 FEV1/FVC: 57 FEV1: 0.83/27 % 0.28/41 % +54 % FVC: 1.46/34 % 2.36/56 % + 61 % Breathing maneuver greater than 6 seconds. Past Medical/Surgical History Medical Problems: (1) Benign hypertension (2) Benign prostatic hyperplasia (3) Chest pain (4) Chronic obstructive pulmonary disease (5) CKD (chronic kidney disease), stage IV (6) Congestive heart failure (7) Coronary artery disease (8) Diabetes mellitus type 2 (9) History of renal calculi (10) Hyperlipidemia (11) Morbid obesity (12) Status post left heart catheterization (LHC) Surgical Problems: (1) Status post coronary artery bypass grafting (2) Status post hip replacement Additional History Hepatic Disease: No Endocrine Disorder: Yes Kidney Disease: Yes Hypertension: Yes Heart Disease: Yes Bleeding Tendencies: No Infectious Diseases: No Allergies Coded Allergies: Prednisone (Verified Allergy, Unknown, UNKNOWN, 08/20/16) Home Medications Scheduled Albuterol Sulf (Proventil 0.083% 2.5MG/3ML), 2.5 MG INH QID Allopurinol (Zyloprim), 1.5 TAB PO QAM Aspirin (Aspirin Ec), 81 MG PO QAM Calcitriol (Rocaltrol Cap), 0.25 MCG PO 3XWK Cholecalciferol (Vitamin D3), 2,000 UNITS PO BID Finasteride (Proscar), 5 MG PO QAM Furosemide (Lasix), 80 MG PO BID Insulin Aspart (Novolog Flexpen), SQ TID Insulin Glargine (Lantus Solostar), 40 UNITS SQ QPM Metolazone (Zaroxolyn), 2.5 MG PO WK Metoprolol Succ (Toprol Xl) (Toprol-Xl), 50 MG PO QAM Oxygen (Oxygen), 2 LITERS NA HS Potassium Ext Rel (Klor-Con), 30 MEQ PO BID Probiotic Product (Zayante), 1 CAP PO QAM Simvastatin (Zocor), 20 MG PO QPM Spironolactone (Aldactone), 12.5 MG PO QAM Scheduled PRN Acetylcysteine (Acetylcysteine), 10 ML NEB TID PRN for Congestion Ipratropium [place] (Ipratropium [place]), 1 VIAL NEB QID PRN for Shortness of Breath Tramadol (Ultram), 50 MG PO Q6H PRN for Pain Physical Examination Skin: warm/dry, no rash Eyes: normal inspection, EOMI, sclerae normal ENT: normal ENT inspection, pharynx normal Head: normocephalic, atraumatic Neck: supple, no adenopathy, trachea midline Respiratory/Chest: lungs clear, normal breath sounds, no respiratory distress Cardiovascular: regular rate, rhythm, no edema, no murmur Abdomen / GI: normal bowel sounds, non tender Back: normal inspection Extremities: normal inspection, normal range of motion Neurologic/Psych: no motor/sensory deficits, alert, normal reflexes, oriented x 3 Diagnosis Sever COPD with associated bronchiectasis and LLL loculated effusion ASA Classification: ASA Class III Plan of Treatment Bronchoscopy with BAL of the LLL and possible thoracentesis of the loculated effusion
[2016-08-31 08:32] VITALS: BP 125/69; PULSE 85; TEMP 36.4; O2SAT 96; Ht 175.3 cm; Wt 104.0 kg
[2016-08-31 09:04] VITALS: PULSE 84; O2SAT 94
[2016-08-31 09:32] LABS: BASO % 0.2 %; BASO ABS # 0.02 K/uL (0-0.2); COMPLETE YES; EOS % 0.8 %; HEMATOCRIT 45.9 % (42-52); IG% 0.2 %; LYMPH % 17.9 %; MEAN CELL VOLUME 92.9 fL (80-100); MEAN CORPUSCULAR HEMOGLOBIN 31.6 pg (25-34); MEAN PLATELET VOLUME 10.2 fL (7.4-10.4); MONO % 9.3 %; NEUT % 71.6 %; PLATELET COUNT 182 K/uL (130-400); RED BLOOD COUNT 4.94 M/uL (4.7-6.1); WHITE BLOOD COUNT 8.96 K/uL (4.8-10.8)
[2016-08-31 10:23] LABS: BUN/CREATININE RATIO 17.7 (10-20); CALCIUM 9.4 mg/dl (8.5-10.1); CREATININE 1.7 mg/dl (0.60-1.40); POTASSIUM 3.7 mmol/L (3.5-5.1)
--- NOTE | 2016-08-31 11:00 | Discharge Instructions ---
Discharge Instructions Date of Service Aug 31, 2016. Admission Reason for Admission: COPD Discharge Discharge Diagnosis / Problem: mild CHF exacerbation Discharge Goals Goal(s): Diagnostic testing Activity Recommendations Activity Limitations: as noted below (please decrease fluid intake to one or 1.5 L per day) . Instructions / Follow-Up Instructions / Follow-Up Patient is to follow-up with ANDREA Wilcox at the [facility]. I have talked to Dereje Wilcox about the patient and described his current she mild CHF exacerbation. He is asked that the patient, clinic and set up follow-up appointment. Current Hospital Diet Patient's current hospital diet: Discharge Diet Recommended Diet: Low Sodium Diet (2gm Na) Procedures Procedures Performed: None Pending Studies Studies pending at discharge: no (none) Medical Emergencies . Who to Call and When: Medical Emergencies: If at any time you feel your situation is an emergency, please call 911 immediately. . Non-Emergent Contact Non-Emergency issues call your: Heating Worker, Implementation Coordinator Call Non-Emergent contact if: temperature is above 101.5 . . "Provider Documentation" section prepared by Brent Garcia. VTE Core Measure Inpt VTE Proph given/why not?: Other Anticoagulation, Treatment not indicated
== END | disposition home or self-care (01) ==
LOC: C.ACU 07:13
PROVIDERS: ATTEND Internal Medicine Critical Care Medicine
DX: J44.9 Chronic obstructive pulmonary disease, unspecified (principal); Z53.09 Procedure and treatment not carried out because of other contraindication; N40.0 Benign prostatic hyperplasia without lower urinary tract symptoms; N18.4 Chronic kidney disease, stage 4 (severe); I12.9 Hypertensive chronic kidney disease with stage 1 through stage 4 chronic kidney disease, or unspecified chronic kidney disease; I25.10 Atherosclerotic heart disease of native coronary artery without angina pectoris; E11.9 Type 2 diabetes mellitus without complications; E66.01 Morbid (severe) obesity due to excess calories

== ENCOUNTER 2016-09-02 11:14 | Inpatient (IN) | payer OTHER ==
[~2016-09-02] VITALS: Ht 175.3 cm; Wt 102.4 kg
[~2016-09-02 11:14] MED LIST changes: -ALBUT/IPRATROP 3MG/0.5MG NEB 3 ML VIAL INH SCH; -COLCPOW6 PO; -DOCU-94 PO; -INSDGI SC; -LINA1CAP PO; -LPT/40 PO; -LSX80 PO; -OMEP40CA41 PO; -POLY335019 PO; -PRED10TA PO; -SENN8.6T7 PO; -ZRX25 PO
[2016-09-02 12:36] LABS: BASO % 0.1 %; BASO ABS # 0.01 K/uL (0-0.2); COMPLETE YES; IG% 0.4 %; LYMPH ABS # 1.59 K/uL (1.2-3.4); MEAN CELL VOLUME 90.1 fL (80-100); MEAN CORPUSCULAR HEMOGLOBIN 31.3 pg (25-34); MEAN CORPUSCULAR HGB CONC 34.8 g/dl (32-36); MEAN PLATELET VOLUME 10.7 fL (7.4-10.4); MONO % 6.9 %; NEUT % 77.6 %; PLATELET COUNT 210 K/uL (130-400); RED BLOOD COUNT 5.33 M/uL (4.7-6.1); WHITE BLOOD COUNT 11.37 K/uL (4.8-10.8)
--- NOTE | 2016-09-02 12:43 | EMERGENCY ROOM VISIT NOTE ---
History Report prepared by Rita: Kerrie Prado Under the Supervision of: Dr. Patito Clifford M.D. First contact with patient: 11:49 Chief Complaint: NAUSEA Stated Complaint: SICK TO STOMACH,BACK PAIN,NO BM FOR 4 TO 5 DAYS Nursing Triage Summary: BACK PAIN, ABDOMINAL PAIN, LOW URINE OUTPUT, NO BM IN 4-5 DAYS. History of Present Illness The patient is a 70 year old male who presents to the Emergency Room with complaints of diffuse abdominal pain starting about 4-5 days ago. He denies any pain radiation. He states that he can feel knots in his abdomen. He has worsening pain with eating. He also reports a decreased appetite. He currently rates a pain intensity of 4-5/10. The patient also complains of constipation. His last normal bowel movement was about 5 days ago. He has been unable to pass gas. He has a history of constipation but it normally does not last for this long. He has been using a stool softener without relief. The patient also reports nausea but denies vomiting. He has lost about 10-12 pounds in the past few weeks. He has 2 pounds since yesterday. He has chronic lower extremity edema. He denies any changes in Lasix dose. He also complains of bilateral lower back pain worse on the right starting today. He describes it to be a constant, non-radiating pain. He rates a pain intensity of 4/10. He denies any recent trauma or injuries. He denies any history of back pain. The patient also denies fevers, chills, chest pain, diarrhea, dark/bloody stools, numbness, tingling, or any other complaints. He reports chronic shortness of breath and denies any changes. The patient has a history of CABG, CHF, COPD, ileus, and kidney disease. He had a colonoscopy about 2 years ago and polyps were removed. He takes baby aspirin but denies any other blood thinners. Source of History: patient Onset: about 4-5 days ago Position: abdomen (diffuse) Symptom Intensity: 4-5/10 Quality: other (knots in abdomen) Modifying Factors (Worsening): eating Associated Symptoms: + SOB (chronic), + back pain, + nausea, No chest pain, No chills, No diarrhea, No fevers, No numbness, No vomiting Review of Systems See HPI for pertinent positives & negatives. A total of 10 systems reviewed and were otherwise negative. Past Medical & Surgical Medical Problems: (1) Abdominal pain (2) JOAN (acute kidney injury) (3) Benign hypertension (4) Benign prostatic hyperplasia (5) Chronic obstructive pulmonary disease (6) CKD (chronic kidney disease), stage IV (7) Congestive heart failure (8) Coronary artery disease (9) Diabetes mellitus type 2 (10) History of renal calculi (11) Hyperlipidemia (12) Morbid obesity Surgical Problems: (1) Status post coronary artery bypass grafting (2) Status post hip replacement Family History Heart disease Hypertension Lung disease Social History Smoking Status: Former Smoker Alcohol Use: none Drug Use: none Marital Status: Housing Status: lives with family Occupation Status: retired Current/Historical Medications Scheduled Albuterol Sulf (Proventil 0.083% 2.5MG/3ML), 2.5 MG INH QID Allopurinol (Zyloprim), 1.5 TAB PO QAM Aspirin (Aspirin Ec), 81 MG PO QAM Calcitriol (Rocaltrol Cap), 0.25 MCG PO 3XWK Cholecalciferol (Vitamin D3), 2,000 UNITS PO BID Finasteride (Proscar), 5 MG PO QAM Furosemide (Lasix), 80 MG PO BID Insulin Aspart (Novolog Flexpen), SQ TID Insulin Glargine (Lantus Solostar), 40 UNITS SQ QPM Metolazone (Zaroxolyn), 2.5 MG PO WK Metoprolol Succ (Toprol Xl) (Toprol-Xl), 50 MG PO QAM Oxygen (Oxygen), 2 LITERS NA HS Potassium Ext Rel (Klor-Con), 30 MEQ PO BID Probiotic Product (Hylete), 1 CAP PO QAM Simvastatin (Zocor), 20 MG PO QPM Spironolactone (Aldactone), 12.5 MG PO QAM Scheduled PRN Ipratropium [place] (Ipratropium [place]), 1 VIAL NEB QID PRN for Shortness of Breath Tramadol (Ultram), 50 MG PO Q6H PRN for Pain Allergies Coded Allergies: Prednisone (Verified Adverse Reaction, Intermediate, 'shakiness', 09/02/16) Physical Exam Vital Signs Date Time Temp Pulse Resp B/P Pulse Ox O2 Delivery O2 Flow Rate FiO2 09/02/16 15:11 Room Air 09/02/16 13:56 83 09/02/16 13:40 82 24 113/64 96 Room Air 09/02/16 13:10 80 112/61 94 Room Air 09/02/16 11:17 36.3 94 18 120/77 94 Room Air Physical Exam Vital signs reviewed. General: Well-appearing, in no significant distress. HEENT: No scleral icterus, PERRLA, neck supple. Atraumatic. Cardiovascular: Regular rate and rhythm, no extra sounds. Pulmonary: Clear to auscultation bilaterally, normal work of breathing. Abdomen: Soft, positive tympany with mild tenderness, no rebound or guarding, nondistended, positive bowel sounds. Rectal: Guaiac negative stool. Normal mucosa. Musculoskeletal: Atraumatic, positive peripheral edema. Neurologic: Patient awake alert and oriented x 3, full strength in all 4 extremities. Cranial nerves 2 through 12 grossly intact. Skin: Warm, dry, no rash Medical Decision & Procedures ER Provider Diagnostic Interpretation: X-ray results as stated below per interpretation by me and the radiologist: CHEST ONE VIEW PORTABLE CLINICAL HISTORY: nausea, CHF pain COMPARISON STUDY: 08/20/2016 FINDINGS: Interval increase in density left base. Left basilar infiltrate is most likely present. Slight fullness of pulmonary vasculature on prior unchanged from the prior study. Mild stable cardiomegaly. IMPRESSION: Infiltrate left base superimposed upon chronic change. Stable pulmonary vascular congestion Electronically signed by: Dereje Patel M.D. 09/02/2016 12:54 PM Dictated Date/Time: 09/02/2016 12:[address] results as stated below per my review and radiologist interpretation: ABDOMEN AND PELVIS CT WITHOUT CONTRAST CT DOSE: 1072.33 mGy.cm HISTORY: Pain SBO, weight loss TECHNIQUE: Multiaxial CT images of the abdomen and pelvis were performed without contrast. COMPARISON STUDY: 01/09/2013 FINDINGS: Chronic loculated left pleural effusion. Lung bases otherwise are remarkable for minimal dependent atelectatic change. Liver is uniform throughout. Multiple small gallstones are present. Kidneys show several small cortical calcifications a left kidney as well as a small exophytic right renal cyst. Findings are unchanged. No evidence for an obstructing urinary tract calculus. Bowel pattern is nonobstructive. There is no small bowel distention. The appendix appears normal. Bladder is midline. Appears described changes lateral to the right hip resolved. Findings of a total right hip arthroplasty are again noted. IMPRESSION: 1. Nonobstructive bowel pattern. 2. Several nonobstructing renal calcifications. 3. Several small gallstones within the gallbladder lumen. 4. Stable chronic loculated left basilar pleural effusion. Electronically signed by: Dereje Patel M.D. 09/02/2016 1:08 PM Dictated Date/Time: 09/02/2016 1:00 PM Laboratory Results Test 09/02/16 11:50 09/02/16 11:56 09/02/16 13:30 Urine Color YELLOW Urine Appearance CLEAR (CLEAR) Urine pH 7.0 (4.5-7.5) Urine Specific [place] 1.009 (1.000-1.030) Urine Protein NEG (NEG) Urine Glucose (UA) NEG (NEG) Urine Ketones NEG (NEG) Urine Occult Blood NEG (NEG) Urine Nitrite NEG (NEG) Urine Bilirubin NEG (NEG) Urine Urobilinogen NEG (NEG) Urine Leukocyte Esterase SMALL (NEG) Urine WBC (Auto) 10-30 /hpf (0-5) Urine RBC (Auto) 0-4 /hpf (0-4) Urine Hyaline Casts (Auto) 1-5 /lpf (0-5) Urine Epithelial Cells (Auto) 5-10 /lpf (0-5) Urine Bacteria (Auto) NEG (NEG) Immature Granulocyte % (Auto) 0.4 % White Blood Count 11.37 K/uL (4.8-10.8) Red Blood Count 5.33 M/uL (4.7-6.1) Hemoglobin 16.7 g/dL (14.0-18.0) Hematocrit 48.0 % (42-52) Mean Corpuscular Volume 90.1 fL (80-100) Mean Corpuscular Hemoglobin 31.3 pg (25-34) Mean Corpuscular Hemoglobin Concent 34.8 g/dl (32-36) Platelet Count 210 K/uL (130-400) Mean Platelet Volume 10.7 fL (7.4-10.4) Neutrophils (%) (Auto) 77.6 % Lymphocytes (%) (Auto) 14.0 % Monocytes (%) (Auto) 6.9 % Eosinophils (%) (Auto) 1.0 % Basophils (%) (Auto) 0.1 % Neutrophils # (Auto) 8.83 K/uL (1.4-6.5) Lymphocytes # (Auto) 1.59 K/uL (1.2-3.4) Monocytes # (Auto) 0.79 K/uL (0.11-0.59) Eosinophils # (Auto) 0.11 K/uL (0-0.5) Basophils # (Auto) 0.01 K/uL (0-0.2) Immature Granulocyte # (Auto) 0.04 K/uL (0.00-0.02) Total Creatine Kinase 28 U/L (39-308) Creatine Kinase MB 1.2 ng/ml (0.5-3.6) Creatine Kinase MB Ratio 4.3 (0-3.0) Hepatitis C Antibody Screen NEG (NEG) Prothrombin Time 11.3 SECONDS (9.0-12.0) Prothromb Time International Ratio 1.1 (0.9-1.1) Activated Partial Thromboplast Time 26.5 SECONDS (21.0-31.0) Partial Thromboplastin Ratio 1.0 Date/Time Source Procedure Growth Status 09/02/16 11:50 Urine , Clean Catch Urine Culture - Final THREE TYPES OF ORGANISMS PRESENT, ALL... Complete Laboratory results per my review. Medications Administered Medications (Trade) Dose Ordered Sig/Hari Route Start Time Stop Time Status Last Admin Dose Admin Albuterol/ Ipratropium (Duoneb) 3 ml NOW STAT INH 09/02/16 13:15 09/02/16 13:16 DC 09/02/16 13:20 3 ML Miscellaneous (Soap Suds Enema) 1 ea NOW STAT OR 09/02/16 14:16 09/02/16 14:18 DC 09/02/16 14:16 1 EA Miscellaneous Medication (Milk And Molasses Enema) 1 ea NOW ONCE OR 09/02/16 15:30 09/02/16 15:43 DC 09/02/16 15:30 1 EA ECG Indication: abdominal pain Rate (beats per minute): 79 Rhythm: sinus rhythm Findings: nonspecific-ST abn (anterior, lateral), PAC, other (Left anterior fasicular block; prolonged QT/QTC 488) ED Course 1149: Past medical records reviewed. The patient was evaluated in room B02. A complete history and physical examination was performed. 1315: DuoNeb 3 ml INH 1413: Upon reevaluation, the patient is resting comfortably. I discussed laboratory and radiographic results with him. He verbalized agreement of the treatment plan. [facility] The patient will be evaluated for further management and care. 1416: Soap Suds Enema 1 ea OR Medical Decision Differential diagnosis: Etiologies such as appendicitis, diverticulitis, PUD, biliary pathology, UTI, pancreatitis, obstruction, mesenteric ischemia, aortic pathology, infections, inflammatory bowel disease, renal colic, as well as others were entertained. This patient was evaluated and appeared to be in no significant distress. Physical examination reveals some tympany and distention of the abdomen. Patient is chronically ill with a history of congestive heart failure/COPD. His laboratory work reveals a elevated creatinine, hypokalemia. An abdominal CT scan reveals a stable left loculated pleural effusion, there is no evidence of bowel obstruction. I suspect the patient's abdominal distention is related to some mild constipation. I suspect the elevated creatinine is related to diuresis. The patient was given a DuoNeb treatment at his request. The case was discussed with the hospitalist service and the patient is in need of enema and IV hydration. He is chronically ill and there is concern that he will become more dehydrated with laxatives. The patient will be evaluated by the hospitalist service for further management. He is aware of the plan and agrees. Consults Time Called: 1410 Consulting Physician: [facility] Returned Call: [address] [facility] Impression Primary Impression: Constipation Additional Impression: Acute on chronic renal failure Scribe Attestation The scribe's documentation has been prepared under my direction and personally reviewed by me in its entirety. I confirm that the note above accurately reflects all work, treatment, procedures, and medical decision making performed by me. Departure Information Dispostion Being Evaluated By Hospitalist Referrals Neri Hatch M.D. (PCP) Patient Instructions My [facility] Problem Qualifiers Primary Impression: Constipation Constipation type: slow transit constipation Qualified Codes: K59.01 - Slow transit constipation
[2016-09-02 12:46] LABS: BUN/CREATININE RATIO 19.3 (10-20); CALCIUM 9.7 mg/dl (8.5-10.1); CREATININE 2.2 mg/dl (0.60-1.40); MAGNESIUM 2.4 mg/dl (1.8-2.4); POTASSIUM 3.1 mmol/L (3.5-5.1)
[2016-09-02 12:55] LABS: CKMB/CK RATIO 4.3 (0-3.0)
--- NOTE | 2016-09-02 12:56 | DIAGNOSTIC IMAGING REPORT ---
CHEST ONE VIEW PORTABLE CLINICAL HISTORY: nausea, CHF pain COMPARISON STUDY: 08/20/2016 FINDINGS: Interval increase in density left base. Left basilar infiltrate is most likely present. Slight fullness of pulmonary vasculature on prior unchanged from the prior study. Mild stable cardiomegaly. IMPRESSION: Infiltrate left base superimposed upon chronic change. Stable pulmonary vascular congestion Electronically signed by: Dereje Patel M.D. 09/02/2016 12:54 PM Dictated Date/Time: 09/02/2016 12:53 PM
[2016-09-02 13:04] LABS: URINE APPEARANCE CLEAR (CLEAR); URINE BILIRUBIN NEG (NEG); URINE COLOR YELLOW; URINE NITRITE NEG (NEG); URINE SPECIFIC GRAVITY 1.009 (1.000-1.030); UROBILINOGEN NEG (NEG); ZZUR CULT IF INDIC CLEAN CATCH YES
--- NOTE | 2016-09-02 13:11 | DIAGNOSTIC IMAGING REPORT ---
ABDOMEN AND PELVIS CT WITHOUT CONTRAST CT DOSE: 1072.33 mGy.cm HISTORY: Pain SBO, weight loss TECHNIQUE: Multiaxial CT images of the abdomen and pelvis were performed without contrast. COMPARISON STUDY: 01/09/2013 FINDINGS: Chronic loculated left pleural effusion. Lung bases otherwise are remarkable for minimal dependent atelectatic change. Liver is uniform throughout. Multiple small gallstones are present. Kidneys show several small cortical calcifications a left kidney as well as a small exophytic right renal cyst. Findings are unchanged. No evidence for an obstructing urinary tract calculus. Bowel pattern is nonobstructive. There is no small bowel distention. The appendix appears normal. Bladder is midline. Appears described changes lateral to the right hip resolved. Findings of a total right hip arthroplasty are again noted. IMPRESSION: 1. Nonobstructive bowel pattern. 2. Several nonobstructing renal calcifications. 3. Several small gallstones within the gallbladder lumen. 4. Stable chronic loculated left basilar pleural effusion. Electronically signed by: Dereje Patel M.D. 09/02/2016 1:08 PM Dictated Date/Time: 09/02/2016 1:00 PM
[2016-09-02] MEDS ORDERED: ALBUT/IPRATROP 3MG/0.5MG NEB 3 ML VIAL INH STA (13:15)
[2016-09-02 13:27] LABS: MANUAL MICROSCOPIC REQUIRED? NO; REVIEW REQ? NO
[2016-09-02 13:52] LABS: INR 1.1 (0.9-1.1); PROTHROMBIN TIME (PATIENT) 11.3 SECONDS (9.0-12.0)
[2016-09-02] MEDS ORDERED: SOAP SUDS ENEMA PR STA (14:16)
[2016-09-02 15:11] VITALS: Ht 175.3 cm; Wt 102.4 kg
[2016-09-02] MEDS ORDERED: ONDANSETRON INJ 2 MG/ML 2 ML VIAL IV PRN (15:30)
[2016-09-02] MEDS ORDERED: MILK AND MOLASSES ENEMA PR ONE (15:30)
[2016-09-02] MEDS ORDERED: ACETAMINOPHEN 325 MG TAB PO PRN (15:30)
[2016-09-02] MEDS ORDERED: GLUCAGON FOR INJ 1 MG VIAL SQ PRN (15:45)
[2016-09-02] MEDS ORDERED: GLUCOSE 10 TABS/TUBE PO PRN (15:45)
[2016-09-02] MEDS ORDERED: GLUCOSE 40% GEL 15 GM TUBE PO PRN (15:45)
[2016-09-02] MEDS ORDERED: DEXTROSE 50% 50 ML SYR IV PRN (15:45)
[2016-09-02] MEDS ORDERED: TRAMADOL HCL 50 MG TAB PO PRN (16:30)
--- NOTE | 2016-09-02 17:00 | History and Physical ---
History & Physical Date & Time of Service: Sep 02, 2016 at 15:33 Chief Complaint: Sick To Stomach,Back Pain,No Bm For 4 To 5 Days Primary Care Physician: Neri Hatch M.D. History of Present Illness Source: patient This is a 70 y/o male with PMHx of CKD stage IV, DM 2, CAD s/p CABG, CHF on Lasix and Spironolactone, HTN, Dyslipidemia and other problems as outlined below who presents to the ED c/o worsening abdominal sxs for 1 week.Pt reports that he "hasn't felt right" for a few weeks however over the past week his sxs have worsened. He describes the discomfort as feeling like his "stomach is in knots" and it "sounds like a drum". His sxs are assoc with night-time chills, loss of appetite, weight loss of 12 lbs in the past week and constipation. His last normal BM was 4 days ago. He adamantly denies any true abdominal pain. Pt also mentions that he was supposed to have a bronchial lavage last week however they did not do the procedure due to "fluid in my lungs". He typically takes metolazone PRN however he was instructed to take the it every day for the fluid in his lungs. Pt denies fever, night sweats, diaphoresis, chest pain, SOB, wheezing, abd pain, N/V, bladder issues, LE edema ,calf pain, lightheadedness/ dizziness. In the ED, vitals are stable. Pt is afebrile with leukocytosis >11k. K+ 3.1. creat 2.2. Abd/Pelvis CT no obstruction. Stable chronic left basilar pleural effusion. EKG: sinus rhythm with occ PACs. No acute ischemic change. Pt is stable and will be admitted for further evaluation and treatment. Past Medical/Surgical History Medical Problems: (1) Benign hypertension Status: Chronic (2) Benign prostatic hyperplasia Status: Chronic (3) Chronic obstructive pulmonary disease Status: Chronic (4) CKD (chronic kidney disease), stage IV Status: Chronic (5) Congestive heart failure Status: Chronic (6) Coronary artery disease Status: Chronic (7) Diabetes mellitus type 2 Status: Chronic (8) History of renal calculi Status: Chronic (9) Hyperlipidemia Status: Chronic (10) Morbid obesity Status: Chronic Surgical Problems: (1) Status post coronary artery bypass grafting Permanent Comment: x 2004 Status: Chronic (2) Status post hip replacement Status: Chronic Family History Heart disease Hypertension Lung disease Social History Smoking Status: Former Smoker (3 ppd x 35 years; quit 2004) Alcohol Use: none Drug Use: none Marital Status: Housing status: lives with family Occupational Status: retired Immunizations History of Influenza Vaccine: Yes History of Tetanus Vaccine?: Yes History of Pneumococcal: Yes Pneumococcal Date: Aug 29, 2014 History of Hepatitis B Vaccine: No Multi-Drug Resistant Organisms History of MDRO: Yes Type of MDRO: MRSA Allergies Coded Allergies: Prednisone (Verified Adverse Reaction, Intermediate, 'shakiness', 09/02/16) Home Medications Scheduled Albuterol Sulf (Proventil 0.083% 2.5MG/3ML), 2.5 MG INH QID Allopurinol (Zyloprim), 1.5 TAB PO QAM Aspirin (Aspirin Ec), 81 MG PO QAM Calcitriol (Rocaltrol Cap), 0.25 MCG PO 3XWK Cholecalciferol (Vitamin D3), 2,000 UNITS PO BID Finasteride (Proscar), 5 MG PO QAM Furosemide (Lasix), 80 MG PO BID Insulin Aspart (Novolog Flexpen), SQ TID Insulin Glargine (Lantus Solostar), 40 UNITS SQ QPM Metolazone (Zaroxolyn), 2.5 MG PO WK Metoprolol Succ (Toprol Xl) (Toprol-Xl), 50 MG PO QAM Oxygen (Oxygen), 2 LITERS NA HS Potassium Ext Rel (Klor-Con), 30 MEQ PO BID Probiotic Product (DesignWine), 1 CAP PO QAM Simvastatin (Zocor), 20 MG PO QPM Spironolactone (Aldactone), 12.5 MG PO QAM Scheduled PRN Ipratropium [place] (Ipratropium [place]), 1 VIAL NEB QID PRN for Shortness of Breath Tramadol (Ultram), 50 MG PO Q6H PRN for Pain Review of Systems Constitutional: + fatigue, No chills, No fever, No sweats, No weakness Eyes: No worsening of vision ENT: No hearing loss Respiratory: + shortness of breath (chronic; at baseline ), No cough Cardiovascular: + edema (at baseline), No chest pain, No claudication Abdomen: + constipation, No GI bleeding, No diarrhea, No nausea, No pain, No vomiting Musculoskeletal: No calf pain Genitourinary - Male: No dysuria Neurologic: No weakness Psychiatric: No depression symptoms Endocrine: + fatigue Hematologic / Lymphatic: No abnormal bleeding/bruising Integumentary: No new/changing skin lesions Physical Exam Vital Signs Date Time Temp Pulse Resp B/P Pulse Ox O2 Delivery O2 Flow Rate FiO2 09/02/16 15:11 Room Air 09/02/16 13:56 83 09/02/16 13:40 82 24 113/64 96 Room Air 09/02/16 13:10 80 112/61 94 Room Air 09/02/16 11:17 36.3 94 18 120/77 94 Room Air General Appearance: WD/WN, no apparent distress, + pertinent finding (Pt is sitting up in bed in NAD) Head: normocephalic, atraumatic Eyes: normal inspection ENT: hearing grossly normal Neck: supple Respiratory/Chest: chest non-tender, lungs clear, normal breath sounds, no respiratory distress Cardiovascular: regular rate, rhythm, no murmur Abdomen/GI: normal bowel sounds, non tender, soft, + distended Back: normal inspection Extremities/Musculoskelatal: no calf tenderness, + pedal edema (1+ pitting edema bilat), + pertinent finding (chronic venous stasis skin changes) Neurologic/Psych: alert, normal mood/affect, oriented x 3 Skin: normal color, warm/dry Diagnostics Laboratory Results Results Past 24 Hours Test 09/02/16 11:50 09/02/16 11:56 09/02/16 13:30 Range/Units Urine Color YELLOW Urine Appearance CLEAR CLEAR Urine pH 7.0 4.5-7.5 Urine Specific [place] 1.009 1.000-1.030 Urine Protein NEG NEG Urine Glucose (UA) NEG NEG Urine Ketones NEG NEG Urine Occult Blood NEG NEG Urine Nitrite NEG NEG Urine Bilirubin NEG NEG Urine Urobilinogen NEG NEG Urine Leukocyte Esterase SMALL NEG Urine WBC (Auto) 10-30 0-5 /hpf Urine RBC (Auto) 0-4 0-4 /hpf Urine Hyaline Casts (Auto) 1-5 0-5 /lpf Urine Epithelial Cells (Auto) 5-10 0-5 /lpf Urine Bacteria (Auto) NEG NEG White Blood Count 11.37 4.8-10.8 K/uL Red Blood Count 5.33 4.7-6.1 M/uL Hemoglobin 16.7 14.0-18.0 g/dL Hematocrit 48.0 42-52 % Mean Corpuscular Volume 90.1 80-100 fL Mean Corpuscular Hemoglobin 31.3 25-34 pg Mean Corpuscular Hemoglobin Concent 34.8 32-36 g/dl Platelet Count 210 130-400 K/uL Mean Platelet Volume 10.7 7.4-10.4 fL Neutrophils (%) (Auto) 77.6 % Lymphocytes (%) (Auto) 14.0 % Monocytes (%) (Auto) 6.9 % Eosinophils (%) (Auto) 1.0 % Basophils (%) (Auto) 0.1 % Neutrophils # (Auto) 8.83 1.4-6.5 K/uL Lymphocytes # (Auto) 1.59 1.2-3.4 K/uL Monocytes # (Auto) 0.79 0.11-0.59 K/uL Eosinophils # (Auto) 0.11 0-0.5 K/uL Basophils # (Auto) 0.01 0-0.2 K/uL RDW Standard Deviation 45.7 36.4-46.3 fL RDW Coefficient of Variation 13.9 11.5-14.5 % Immature Granulocyte % (Auto) 0.4 % Immature Granulocyte # (Auto) 0.04 0.00-0.02 K/uL Sodium Level 136 136-145 mmol/L Potassium Level 3.1 3.5-5.1 mmol/L Chloride Level 95 98-107 mmol/L Carbon Dioxide Level 31 21-32 mmol/L Anion Gap 10.0 3-11 mmol/L Blood Urea Nitrogen 42 7-18 mg/dl Creatinine 2.20 0.60-1.40 mg/dl Est Creatinine Clear Calc Drug Dose 36.3 ml/min Estimated GFR () 33.7 Estimated GFR (Non- 29.1 BUN/Creatinine Ratio 19.3 10-20 Random Glucose 222 70-99 mg/dl Calcium Level 9.7 8.5-10.1 mg/dl Magnesium Level 2.4 1.8-2.4 mg/dl Total Creatine Kinase 28 39-308 U/L Creatine Kinase MB 1.2 0.5-3.6 ng/ml Creatine Kinase MB Ratio 4.3 0-3.0 Prothrombin Time 11.3 9.0-12.0 SECONDS Prothromb Time International Ratio 1.1 0.9-1.1 Activated Partial Thromboplast Time 26.5 21.0-31.0 SECONDS Partial Thromboplastin Ratio 1.0 Microbiology Results 09/02/16 Urine Culture, Received Pending Diagnostic Radiology CT ABD/PELVIS IMPRESSION: 1. Nonobstructive bowel pattern. 2. Several nonobstructing renal calcifications. 3. Several small gallstones within the gallbladder lumen. 4. Stable chronic loculated left basilar pleural effusion. CXR IMPRESSION: Infiltrate left base superimposed upon chronic change. Stable pulmonary vascular congestion EKG EKG: Sinus rhythm at 79 bpm with occ PACs. No acute ischemic changes; sinus rhythm has replaced ectopic atrial rhythm when compared with EKG from 08/20/16 Impression Assessment and Plan ABDOMINAL SYMPTOMS LIKELY SECONDARY TO CONSTIPATION pt presented with abdomen in "knots" assoc with loss of appetite, weight loss and constipation. -admit observation status to med/surg -pt is afebrile with leuks>11k -CT abd/pelvis: no evidence of obstruction. No acute pathology. -give milk of molasses enema now -cont stool softener daily and gentle IVF -monitor UNINTENTIONAL WEIGHT LOSS/NIGHT-TIME CHILLS -may be secondary to recent loss of appetite; concern for malignancy -outpatient recorded weights 05/2016 250lbs; 08/24/16 239lbs; 09/01/16 227lbs -CT abd/pelvis no acute pathology -CXR no masses -Colonoscopy 07/2015 normal; 2 polyps removed -PSA May 2016 WNL JOAN ON CKD STAGE IV -creatinine currently 2.2 (bl=1.7-1.9); likely elevated due to decreased PO intake and diuretics -hold Lasix, spironolactone and metolazone -start gentle IVF -monitor with daily prp and avoid nephrotoxic agents when able CAD -s/p CABG x 5 and stents -cardiac cath 2011: patent vessels -cont ASA, BB and statin -pt currently denies anginal sxs DM 2 -last A1C 7.1; repeat in AM -hold Lantus and NovoLog -start ISS -monitor BSG AC HS COPD REQUIRING OXYGEN SUPPLEMENTATION HS -no evidence of acute exacerbation -cont inhalers and 2L O2 HS -monitor DIASTOLIC CHF -no evidence of fluid overload -CXR + chronic pleural effusion -hold Lasix, spironolactone and metolazone due to JAON -cont metoprolol -monitor for fluid overload HTN -BP stable -cont metoprolol -holding diuretics due to JOAN -monitor DYSLIPIDEMIA -cont statin DVT PROPHYLAXIS -subq heparin CODE STATUS -FULL CODE status per discussion with patient upon admission DISPO Observation status until further workup is complete. Pt seen in collaboration with Dr. Juan. Please see her addendum for further details. Thanks! -Of note: patient will be followed by Dr. Lim starting tomorrow AM. I have seen and examined the patient and have discussed the case with the provider above. I agree with the assessment and plan. Mr. Hidalgo is otherwise stable but has been losing weight (20 lbs in last year, 10 lbs in last month), and describes lack of appetite along with constitutional symptoms of chills over the past month. He denies any vomiting or diarrhea. He denies any pain, only saying "I just don't feel right in my stomach." He has not had a BM in several days so MOM enema was ordered and he was noted to have had a BM on the floor. Abdomen exam was benign on admission; will re-evaluate symptoms in am after moving bowels and go from there. Physical exam as above, however, he was slightly TTP in LLQ and suprapubic area. He denied any symptoms of UTI. He also has a h/o MRSA in the past and was placed on contact precautions. Yara Juan, Hospitalist Level of Care Med/Surg Advanced Directives Existing Living Will: No Existing Power of Production Officer: No Resuscitation Status FULL RESUSCITATION VTE Prophylaxis VTE Risk Assessment Done? Y/N: Yes Risk Level: Moderate Given or contraindicated: Unfractionated heparin SQ
[2016-09-02 17:05] VITALS: BP 120/75; PULSE 65; TEMP 36.5; O2SAT 97
[2016-09-02] MEDS ORDERED: SODIUM CHLORIDE 0.9% 1000ML 1,000 ML IV SCH (17:15)
[2016-09-02 17:20] VITALS: O2SAT 93
[2016-09-02] MEDS: ALBUTEROL 0.083% NEBU SOLN 3 ML VIAL INH SCH ×2 (17:57→20:13)
[2016-09-02 17:58] VITALS: PULSE 74; O2SAT 93
[2016-09-02] MEDS ORDERED: IV FLUIDS COMPLETED PRN (18:15)
[2016-09-02] MEDS: INSULIN ASPART 100 UNITS/ML 3 ML PEN SC SCH ×2 (18:33→20:53)
[2016-09-02 19:15] VITALS: PULSE 75; O2SAT 95
[2016-09-02] MEDS ORDERED: POTASSIUM CHLORIDE 20 MEQ TABCR PO STA (19:37)
[2016-09-02] MEDS ORDERED: NURSING VERBAL MED ORDER ONE (19:45)
[2016-09-02] MEDS: CHOLECALCIFEROL 1000 INTER.UNIT TAB PO SCH (20:40)
[2016-09-02] MEDS: SIMVASTATIN 20 MG TAB PO SCH (20:41)
[2016-09-02] MEDS: HEPARIN SOD 5000 UNIT/0.5 ML CARP SQ SCH (20:53)
[2016-09-02] MEDS: ALBUT/IPRATROP 3MG/0.5MG NEB 3 ML VIAL INH PRN (23:21)
[2016-09-02 23:22] VITALS: PULSE 81; O2SAT 96
[2016-09-03] VITALS (11 sets, daily range): BP systolic 112–123; BP diastolic 63–78; PULSE 61–91; TEMP 36.4–36.6; O2SAT 94–96
[2016-09-03] MEDS: ALBUT/IPRATROP 3MG/0.5MG NEB 3 ML VIAL INH PRN (05:07)
[2016-09-03] MEDS: HEPARIN SOD 5000 UNIT/0.5 ML CARP SQ SCH ×3 (05:29→20:11)
[2016-09-03 07:28] LABS: HEMATOCRIT 46.7 % (42-52); MEAN CELL VOLUME 90.7 fL (80-100); MEAN CORPUSCULAR HEMOGLOBIN 30.9 pg (25-34); MEAN PLATELET VOLUME 10.1 fL (7.4-10.4); PLATELET COUNT 170 K/uL (130-400); RED BLOOD COUNT 5.15 M/uL (4.7-6.1); WHITE BLOOD COUNT 9.23 K/uL (4.8-10.8)
[2016-09-03] MEDS: ALBUTEROL 0.083% NEBU SOLN 3 ML VIAL INH SCH ×4 (07:32→19:46)
[2016-09-03] MEDS ORDERED: PROBIOTIC PRODUCT PO SCH (08:00)
[2016-09-03 08:05] LABS: BUN/CREATININE RATIO 21.5 (10-20); CALCIUM 9.1 mg/dl (8.5-10.1); CREATININE 2.3 mg/dl (0.60-1.40); MAGNESIUM 2.4 mg/dl (1.8-2.4); POTASSIUM 2.8 mmol/L (3.5-5.1)
[2016-09-03 08:15] LABS: ESTIMATED AVERAGE GLUCOSE 148 mg/dl; HA1C FLAG Normal (Normal)
[2016-09-03] MEDS ORDERED: POTASSIUM CHLORIDE 20 MEQ TABCR PO ONE ×4 (08:30→18:00)
[2016-09-03] MEDS: FINASTERIDE 5 MG TAB PO SCH (08:45)
[2016-09-03] MEDS: ASPIRIN 81 MG ECTAB PO SCH (08:45)
[2016-09-03] MEDS: METOPROLOL SUCC 50MG EXT REL TAB PO SCH (08:46)
[2016-09-03] MEDS: CHOLECALCIFEROL 1000 INTER.UNIT TAB PO SCH ×2 (08:46→20:08)
[2016-09-03] MEDS: ALLOPURINOL 300 MG TAB PO SCH (08:46)
[2016-09-03] MEDS: INSULIN ASPART 100 UNITS/ML 3 ML PEN SC SCH ×4 (08:51→20:10)
[2016-09-03] MEDS ORDERED: CALCITRIOL 0.25 MCG CAP PO SCH (09:00)
[2016-09-03 15:35] LABS: BUN/CREATININE RATIO 21.9 (10-20); CREATININE 2.1 mg/dl (0.60-1.40)
[2016-09-03] MEDS ORDERED: PANTOprazole SOD 40 MG TAB PO STA (15:48)
--- NOTE | 2016-09-03 15:53 | Progress Note ---
Internal Med Progress Note Date of Service: Sep 03, 2016. Provider Documentation: SUBJECTIVE: Patient is sitting in the chair and is in no apparent distress. he is c/o intermittent epigastric discomfort. Mild nausea but no episode of vomiting. Very anxious to go home. OBJECTIVE: Vital Signs-as noted below Examination: General Appearance: WD/WN, In no apparent distress, Head: normocephalic, atraumatic Eyes: normal inspection ENT: hearing grossly normal. Ears, Nose & Throat are normal looking. Neck: supple, midline trachea, No JVD. Respiratory/Chest: chest non-tender, lungs clear, normal breath sounds, no respiratory distress Cardiovascular: regular rate, rhythm, no murmur, Normal S1, S2. Abdomen/GI: normal bowel sounds, non tender, soft, Some distension Back: normal inspection Extremities/Musculoskeletal: no calf tenderness,1+ pitting edema B/L, chronic venous stasis skin changes. Neurologic/Psych: alert, normal mood/affect, oriented x 3 Skin: normal color, warm/dry Lab data as noted below. ASSESSMENT & PLAN: JOAN ON CKD Stage IV : Resolving. Likely due to volume depletion caused by diuretics and poor oral intake. -Holding Lasix, spironolactone and metolazone -Holding IVF as is developing pedal edema -Monitoring daily prp -Avoid nephrotoxic agents when able Hypokalemia: Caused by Diuretics. -Supplementing and will follow up closely. Abdominal Pain: Clinically better. Likely due to constipation. Patient presented with abdomen in "knots" assoc with loss of appetite, weight loss and constipation. Is afebrile with leuks>11k -CT Abd/pelvis: no evidence of obstruction. No acute pathology. -Started Protonix -Added Senna-S daily Weight Loss: Unintentional. Likely due [place] poor intake. Concern for malignancy Outpatient recorded weights 05/2016 250lbs; 08/24/16 239lbs; 09/01/16 227lbs -CT abd/pelvis no acute pathology -CXR no masses -Colonoscopy 07/2015 normal; 2 polyps removed -PSA May 2016 WNL Diabetes Type II: Reasonably controlled. HbA1c is 6.8. -Holding Lantus and NovoLog -start ISS -monitor BSG AC HS History CAD : s/p CABG x 5 and stents. Cardiac cath 2011: patent vessels. Denies any acute cardiac symptoms. -Continue ASA, BB and statin History Diastolic CHF: Clinically stable & is euvolemic. CXR + chronic pleural effusion -Holding Lasix, spironolactone and metolazone due to JOAN -Continue Metoprolol -Monitor for fluid overload as well I's & O's. History COPD: Has Chronic Respiratory failure needing Oxygen at nighttime. No evidence of acute exacerbation -Continue inhalers and 2L O2 HS History HTN BP stable -Continue Metoprolol -Holding diuretics due to JOAN Dyslipidemia: Continue Statin. DVT Prophylaxis: Sq Heparin. Code Status: FULL CODE status per discussion with patient upon admission Disposition: Discharge in 1-2 days once is clinically stable and Creatinine is at baseline. Vital Signs: Date Time Temp Pulse Resp B/P Pulse Ox O2 Delivery O2 Flow Rate FiO2 09/03/16 15:31 87 16 96 Room Air 09/03/16 11:43 88 16 94 Room Air 09/03/16 09:31 Room Air 09/03/16 07:32 86 16 94 Room Air 09/03/16 07:14 36.6 75 18 121/63 95 Room Air 09/03/16 05:07 91 18 96 Room Air 09/03/16 00:56 96 Room Air 09/03/16 00:24 36.6 61 20 116/64 96 Room Air 09/02/16 23:22 81 18 96 Room Air 09/02/16 19:15 75 18 95 Room Air 09/02/16 17:58 74 14 93 Room Air 09/02/16 17:20 93 Room Air 09/02/16 17:05 36.5 65 20 120/75 97 Room Air Lab Results: Results Past 24 Hours Test 09/02/16 17:19 09/02/16 19:57 09/03/16 07:14 09/03/16 07:26 Range/Units Bedside Glucose 143 175 174 70-99 mg/dl White Blood Count 9.23 4.8-10.8 K/uL Red Blood Count 5.15 4.7-6.1 M/uL Hemoglobin 15.9 14.0-18.0 g/dL Hematocrit 46.7 42-52 % Mean Corpuscular Volume 90.7 80-100 fL Mean Corpuscular Hemoglobin 30.9 25-34 pg Mean Corpuscular Hemoglobin Concent 34.0 32-36 g/dl RDW Standard Deviation 45.6 36.4-46.3 fL RDW Coefficient of Variation 14.0 11.5-14.5 % Platelet Count 170 130-400 K/uL Mean Platelet Volume 10.1 7.4-10.4 fL Sodium Level 134 136-145 mmol/L Potassium Level 2.8 3.5-5.1 mmol/L Chloride Level 94 98-107 mmol/L Carbon Dioxide Level 31 21-32 mmol/L Anion Gap 9.0 3-11 mmol/L Blood Urea Nitrogen 49 7-18 mg/dl Creatinine 2.30 0.60-1.40 mg/dl Est Creatinine Clear Calc Drug Dose 34.8 ml/min Estimated GFR () 31.9 Estimated GFR (Non- 27.5 BUN/Creatinine Ratio 21.5 10-20 Random Glucose 197 70-99 mg/dl Estimated Average Glucose 148 mg/dl Hemoglobin A1c 6.8 4.5-5.6 % Calcium Level 9.1 8.5-10.1 mg/dl Magnesium Level 2.4 1.8-2.4 mg/dl Test 09/03/16 11:28 09/03/16 14:49 Range/Units Bedside Glucose 178 70-99 mg/dl Sodium Level 135 136-145 mmol/L Potassium Level 3.0 3.5-5.1 mmol/L Chloride Level 96 98-107 mmol/L Carbon Dioxide Level 31 21-32 mmol/L Anion Gap 8.0 3-11 mmol/L Blood Urea Nitrogen 46 7-18 mg/dl Creatinine 2.10 0.60-1.40 mg/dl Est Creatinine Clear Calc Drug Dose 38.1 ml/min Estimated GFR () 35.6 Estimated GFR (Non- 30.7 BUN/Creatinine Ratio 21.9 10-20 Random Glucose 185 70-99 mg/dl Calcium Level 9.0 8.5-10.1 mg/dl
[2016-09-03] MEDS ORDERED: DOCUSATE SODIUM/SENNA 50/8.6MG TAB PO ONE (16:00)
[2016-09-03] MEDS: SIMVASTATIN 20 MG TAB PO SCH (20:08)
[2016-09-04 01:28] VITALS: PULSE 84; O2SAT 96
[2016-09-04] MEDS: ALBUT/IPRATROP 3MG/0.5MG NEB 3 ML VIAL INH PRN (01:28)
[2016-09-04] MEDS: HEPARIN SOD 5000 UNIT/0.5 ML CARP SQ SCH (02:18)
[2016-09-04 06:17] VITALS: PULSE 85; O2SAT 96
[2016-09-04] MEDS: ALBUTEROL 0.083% NEBU SOLN 3 ML VIAL INH SCH ×2 (06:17→11:32)
[2016-09-04 07:54] VITALS: BP 115/74; PULSE 85; TEMP 36.4; O2SAT 96
[2016-09-04] MEDS: CHOLECALCIFEROL 1000 INTER.UNIT TAB PO SCH (07:55)
[2016-09-04] MEDS: METOPROLOL SUCC 50MG EXT REL TAB PO SCH (07:56)
[2016-09-04] MEDS: FINASTERIDE 5 MG TAB PO SCH (07:56)
[2016-09-04] MEDS: ALLOPURINOL 300 MG TAB PO SCH (07:56)
[2016-09-04] MEDS: ASPIRIN 81 MG ECTAB PO SCH (07:56)
[2016-09-04] MEDS ORDERED: PANTOprazole SOD 40 MG TAB PO SCH (08:00)
[2016-09-04] MEDS ORDERED: DOCUSATE SODIUM/SENNA 50/8.6MG TAB PO SCH (08:00)
[2016-09-04 08:43] LABS: CREATININE 1.8 mg/dl (0.60-1.40); MAGNESIUM 2.4 mg/dl (1.8-2.4); POTASSIUM 3.6 mmol/L (3.5-5.1)
[2016-09-04] MEDS: INSULIN ASPART 100 UNITS/ML 3 ML PEN SC SCH (08:48)
[2016-09-04] MEDS ORDERED: POTASSIUM CHLORIDE 20 MEQ TABCR PO ONE (10:45)
--- NOTE | 2016-09-04 11:13 | Progress Note ---
Internal Med Progress Note Date of Service: Sep 04, 2016. Provider Documentation: SUBJECTIVE: Patient is sitting in the chair and is in no apparent distress. he is c/o intermittent epigastric discomfort. No nausea/vomiting. has been ambulating in the room. Very anxious to go home. OBJECTIVE: Vital Signs-as noted below Examination: General Appearance: WD/WN, In no apparent distress, Head: normocephalic, atraumatic Eyes: normal inspection ENT: hearing grossly normal. Ears, Nose & Throat are normal looking. Neck: supple, midline trachea, No JVD. Respiratory/Chest: chest non-tender, lungs clear, normal breath sounds, no respiratory distress Cardiovascular: regular rate, rhythm, no murmur, Normal S1, S2. Abdomen/GI: normal bowel sounds, non tender, soft, Some distension Back: normal inspection Extremities/Musculoskeletal: no calf tenderness,1+ pitting edema B/L, chronic venous stasis skin changes. Neurologic/Psych: alert, normal mood/affect, oriented x 3 Skin: normal color, warm/dry Lab data as noted below. ASSESSMENT & PLAN: JOAN ON CKD Stage IV : Resolving. Likely due to volume depletion caused by diuretics and poor oral intake. -Holding Lasix, spironolactone and metolazone -Holding IVF as is developing pedal edema -Monitoring daily prp -Avoid nephrotoxic agents when able Hypokalemia: Caused by Diuretics.Resolved now. -Supplementing and will follow up closely. Abdominal Pain: Clinically better. Likely due to constipation. Patient presented with abdomen in "knots" assoc with loss of appetite, weight loss and constipation. Is afebrile with leuks>11k -CT Abd/pelvis: no evidence of obstruction. No acute pathology. -Started Protonix -Added Senna-S daily and advised to use it as needed. Weight Loss: Unintentional. Likely due [place] poor intake. Concern for malignancy Outpatient recorded weights 05/2016 250lbs; 08/24/16 239lbs; 09/01/16 227lbs -CT abd/pelvis no acute pathology -CXR no masses -Colonoscopy 07/2015 normal; 2 polyps removed -PSA May 2016 WNL Diabetes Type II: Reasonably controlled. HbA1c is 6.8. -Holding Lantus and NovoLog -start ISS -monitor BSG AC HS History CAD : s/p CABG x 5 and stents. Cardiac cath 2012: patent vessels. Denies any acute cardiac symptoms. -Continue ASA, BB and statin History Diastolic CHF: Clinically stable & is euvolemic. CXR + chronic pleural effusion -Holding Lasix, spironolactone and metolazone due to JOAN -Continue Metoprolol -Monitor for fluid overload as well I's & O's. History COPD: Has Chronic Respiratory failure needing Oxygen at nighttime. No evidence of acute exacerbation -Continue inhalers and 2L O2 HS History HTN BP stable -Continue Metoprolol -Holding diuretics due to JOAN Dyslipidemia: Continue Statin. DVT Prophylaxis: Sq Heparin. Code Status: FULL CODE status per discussion with patient upon admission Disposition: Discharge home later today. Follow up with PCP on 09/10/2016 @ 1.00 PM. Vital Signs: Date Time Temp Pulse Resp B/P Pulse Ox O2 Delivery O2 Flow Rate FiO2 09/04/16 07:54 36.4 85 18 115/74 96 Room Air 09/04/16 06:17 85 16 96 Room Air 09/04/16 01:28 84 16 96 Room Air 09/04/16 01:00 Room Air 09/03/16 23:23 36.6 78 18 117/77 96 Room Air 09/03/16 21:49 Room Air 09/03/16 19:47 81 16 95 Room Air 09/03/16 16:00 36.4 83 20 123/78 96 Room Air 09/03/16 15:31 87 16 96 Room Air 09/03/16 11:43 88 16 94 Room Air 09/03/16 11:20 83 95 Lab Results: Results Past 24 Hours Test 09/03/16 11:28 09/03/16 14:49 09/03/16 16:38 09/03/16 19:50 Range/Units Bedside Glucose 178 135 160 70-99 mg/dl Sodium Level 135 136-145 mmol/L Potassium Level 3.0 3.5-5.1 mmol/L Chloride Level 96 98-107 mmol/L Carbon Dioxide Level 31 21-32 mmol/L Anion Gap 8.0 3-11 mmol/L Blood Urea Nitrogen 46 7-18 mg/dl Creatinine 2.10 0.60-1.40 mg/dl Est Creatinine Clear Calc Drug Dose 38.1 ml/min Estimated GFR () 35.6 Estimated GFR (Non- 30.7 BUN/Creatinine Ratio 21.9 10-20 Random Glucose 185 70-99 mg/dl Calcium Level 9.0 8.5-10.1 mg/dl Test 09/03/16 22:45 09/04/16 07:54 09/04/16 08:08 Range/Units Potassium Level 3.7 3.6 3.5-5.1 mmol/L Bedside Glucose 142 70-99 mg/dl Sodium Level 137 136-145 mmol/L Chloride Level 101 98-107 mmol/L Carbon Dioxide Level 27 21-32 mmol/L Anion Gap 9.0 3-11 mmol/L Blood Urea Nitrogen 45 7-18 mg/dl Creatinine 1.80 0.60-1.40 mg/dl Est Creatinine Clear Calc Drug Dose 44.4 ml/min Estimated GFR () 42.9 Estimated GFR (Non- 37.0 BUN/Creatinine Ratio 25.0 10-20 Random Glucose 161 70-99 mg/dl Calcium Level 9.0 8.5-10.1 mg/dl Magnesium Level 2.4 1.8-2.4 mg/dl
--- NOTE | 2016-09-04 11:17 | Discharge Instructions ---
Discharge Instructions Date of Service Sep 04, 2016. Admission Reason for Admission: Abdominal Pain, Alex Discharge Discharge Diagnosis / Problem: Acute Kidney Injury, Hypokalemia Discharge Goals Goal(s): Decrease discomfort, Improve function, Increase independence, Improve disease control, Learn about illness, Diagnostic testing, Therapeutic intervention Activity Recommendations Activity Limitations: resume your previous activity (Gradually increase following fall precautions.) Lifting Limitations: gradually increase as tolerated Exercise/Sports Limitations: gradually increase as tolerated May Resume Sexual Activity: when tolerated Shower/Bathe: no limitations . Instructions / Follow-Up Instructions / Follow-Up Please start medications as directed. Need to have blood work done on Tuesday09/06/2016. Drink adequate amounts of fluids. LASIX: Start with 40 mg twice a day for now and in case you notice increasing swelling of feet or get shortness of breath, then increase to 80 mg twice a day. Otherwise do not increase till you are seen by PCP. Follow up with PCP on 09/10/2016 @ 1.00 PM. Current Hospital Diet Patient's current hospital diet: Low Lactose Diet, Diabetes Type 2 Diet, AHA Diet (Heart Healthy) Discharge Diet Recommended Diet: AHA Diet (Heart Healthy), Diabetes Type 2 Diet Fluid Restriction: 1800 ml (7 cups) Pending Studies Studies pending at discharge: no Laboratory Results Hemoglobin A1c Test 09/03/16 07:14 Range/Units Estimated Average Glucose 148 mg/dl Hemoglobin A1c 6.8 H 4.5-5.6 % Medical Emergencies . Who to Call and When: Medical Emergencies: If at any time you feel your situation is an emergency, please call 911 immediately. . Non-Emergent Contact Non-Emergency issues call your: Primary Care Provider . . "Provider Documentation" section prepared by Naresh Lim. VTE Core Measure Inpt VTE Proph given/why not?: Unfractionated heparin SQ
--- NOTE | 2016-09-04 11:21 | Discharge Summary ---
Discharge Summary Date of Service Sep 04, 2016. Discharge Summary Admission Date: Sep 03, 2016 at 16:08 Discharge Date: Sep 04, 2016 Discharge Disposition: Home Principal Diagnosis: JOAN On CKD Stage IV Hypokalemia Abdominal Pain (Resolved) Secondary Diagnoses/Problems: Weight Loss History Diabetes Type II History CAD Chronic Diastolic CHF Hypertension Dyslipidemia COPD Procedures: NONE Vaccinations: NONE Consultations: NONE Pending Studies/Follow-Up: Follow up BMP which is to be done next week. Please follow his weight Medication Reconciliation New Medications: Sennosides-Docusate Sodium (Senokot S) 1 Tab Tab 1 TAB PO QAM PRN for Constipation, #30 TAB 1 Refill Continued Medications: Albuterol Sulf (Proventil 0.083% 2.5MG/3ML) 2.5 Mg/3 Ml Nebu 2.5 MG INH QID Allopurinol (Zyloprim) 300 Mg Tab 1.5 TAB PO QAM, TAB Aspirin (Aspirin Ec) 81 Mg Tab 81 MG PO QAM Calcitriol (Rocaltrol Cap) 0.25 Mcg Cap 0.25 MCG PO 3XWK, CAP MON,WED,FRI Cholecalciferol (Vitamin D3) 2,000 Unit Tab 2000 UNITS PO BID Finasteride (Proscar) 5 Mg Tab 5 MG PO QAM, TAB Insulin Aspart (Novolog Flexpen) 100 Units/Ml Inj SQ TID PER SLIDING SCALE Insulin Glargine (Lantus Solostar) 100 Unit/Ml Inj 40 UNITS SQ QPM Ipratropium [place] (Ipratropium [place]) 0.5 Mg/2.5 Ml Nebu 1 VIAL NEB QID PRN for Shortness of Breath for 30 Days mix with albuterol ud Metoprolol Succ (Toprol Xl) (Toprol-Xl) 50 Mg Tabcr 50 MG PO QAM Oxygen (Oxygen) Gas 2 LITERS NA HS Potassium Ext Rel (Klor-Con) 20 Meq Tabcr 30 MEQ PO BID Probiotic Product ([employer] [facility]) 1 Cap Cap 1 CAP PO QAM Simvastatin (Zocor) 20 Mg Tab 20 MG PO QPM, TAB Spironolactone (Aldactone) 25 Mg Tab 12.5 MG PO QAM, TAB Tramadol (Ultram) 50 Mg Tab 50 MG PO Q6H PRN for Pain, TAB Discontinued Medications: Furosemide (Lasix) 80 Mg Tab 80 MG PO BID, TAB Metolazone (Zaroxolyn) 2.5 Mg Tab 2.5 MG PO WK, TAB Admission Information HPI (per Admitting provider): This is a 70 y/o male with PMHx of CKD stage IV, DM 2, CAD s/p CABG, CHF on Lasix and Spironolactone, HTN, Dyslipidemia and other problems as outlined below who presents to the ED c/o worsening abdominal sxs for 1 week.Pt reports that he "hasn't felt right" for a few weeks however over the past week his sxs have worsened. He describes the discomfort as feeling like his "stomach is in knots" and it "sounds like a drum". His sxs are assoc with night-time chills, loss of appetite, weight loss of 12 lbs in the past week and constipation. His last normal BM was 4 days ago. He adamantly denies any true abdominal pain. Pt also mentions that he was supposed to have a bronchial lavage last week however they did not do the procedure due to "fluid in my lungs". He typically takes metolazone PRN however he was instructed to take the it every day for the fluid in his lungs. Pt denies fever, night sweats, diaphoresis, chest pain, SOB, wheezing, abd pain, N/V, bladder issues, LE edema ,calf pain, lightheadedness/ dizziness. In the ED, vitals are stable. Pt is afebrile with leukocytosis >11k. K+ 3.1. creat 2.2. Abd/Pelvis CT no obstruction. Stable chronic left basilar pleural effusion. EKG: sinus rhythm with occ PACs. No acute ischemic change. Pt is stable and will be admitted for further evaluation and treatment. Physical Exam (per Admitting): General Appearance: WD/WN, no apparent distress, + pertinent finding (Pt is sitting up in bed in NAD) Head: normocephalic, atraumatic Eyes: normal inspection ENT: hearing grossly normal Neck: supple Respiratory/Chest: chest non-tender, lungs clear, normal breath sounds, no respiratory distress Cardiovascular: regular rate, rhythm, no murmur Abdomen/GI: normal bowel sounds, non tender, soft, + distended Back: normal inspection Extremities/Musculoskelatal: no calf tenderness, + pedal edema (1+ pitting edema bilat), + pertinent finding (chronic venous stasis skin changes) Neurologic/Psych: alert, normal mood/affect, oriented x 3 Skin: normal color, warm/dry Hospital Course JOAN ON CKD Stage IV : Resolving. Likely due to volume depletion caused by diuretics and poor oral intake. -Holding Lasix, spironolactone and metolazone -Holding IVF as is developing pedal edema -Monitoring daily prp -Avoid nephrotoxic agents when able Hypokalemia: Caused by Diuretics.Resolved now. -Supplementing and will follow up closely. Abdominal Pain: Clinically better. Likely due to constipation. Patient presented with abdomen in "knots" assoc with loss of appetite, weight loss and constipation. Is afebrile with leuks>11k -CT Abd/pelvis: no evidence of obstruction. No acute pathology. -Started Protonix -Added Senna-S daily and advised to use it as needed. Weight Loss: Unintentional. Likely due [place] poor intake. Concern for malignancy Outpatient recorded weights 05/2016 250lbs; 08/24/16 239lbs; 09/01/16 227lbs -CT abd/pelvis no acute pathology -CXR no masses -Colonoscopy 07/2015 normal; 2 polyps removed -PSA May 2016 WNL Diabetes Type II: Reasonably controlled. HbA1c is 6.8. -Holding Lantus and NovoLog -start ISS -monitor BSG AC HS History CAD : s/p CABG x 5 and stents. Cardiac cath 2011: patent vessels. Denies any acute cardiac symptoms. -Continue ASA, BB and statin History Diastolic CHF: Clinically stable & is euvolemic. CXR + chronic pleural effusion -Holding Lasix, spironolactone and metolazone due to JOAN -Continue Metoprolol -Monitor for fluid overload as well I's & O's. History COPD: Has Chronic Respiratory failure needing Oxygen at nighttime. No evidence of acute exacerbation -Continue inhalers and 2L O2 HS History HTN BP stable -Continue Metoprolol -Holding diuretics due to JOAN Dyslipidemia: Continue Statin. DVT Prophylaxis: Sq Heparin. Code Status: FULL CODE status per discussion with patient upon admission Disposition: Discharge home later today. Follow up with PCP on 09/10/2016 @ 1.00 PM. Total time spent on discharge = 40 minutes. This includes examination of the patient, discharge planning, medication reconciliation, and communication with other providers. Discharge Instructions Discharge Discharge Diagnosis / Problem: Acute Kidney Injury, Hypokalemia Discharge Goals Goal(s): Decrease discomfort, Improve function, Increase independence, Improve disease control, Learn about illness, Diagnostic testing, Therapeutic intervention Activity Recommendations Activity Limitations: resume your previous activity (Gradually increase following fall precautions.) Lifting Limitations: gradually increase as tolerated Exercise/Sports Limitations: gradually increase as tolerated May Resume Sexual Activity: when tolerated Shower/Bathe: no limitations . Instructions / Follow-Up Instructions / Follow-Up Please start medications as directed. Need to have blood work done on Tuesday09/06/2016. Drink adequate amounts of fluids. LASIX: Start with 40 mg twice a day for now and in case you notice increasing swelling of feet or get shortness of breath, then increase to 80 mg twice a day. Otherwise do not increase till you are seen by PCP. Follow up with PCP on 09/10/2016 @ 1.00 PM. Additional Copies To Neri Hatch M.D.
[2016-09-04] MEDS ORDERED: SENN8.6T7 PO (11:22)
[2016-09-04 11:32] VITALS: PULSE 84; O2SAT 93
[2016-09-04 11:49] VITALS: BP 115/74; PULSE 84; TEMP 36.4; O2SAT 93
[2016-10-12] MEDS ORDERED: INSDGI SC (09:31)
[2016-10-12] MEDS ORDERED: OMEP40CA41 PO (09:31)
[2016-10-12] MEDS ORDERED: POTA20TA16 PO (09:31)
[2016-11-11] MEDS ORDERED: PRED10TA PO (14:29)
== END 2016-09-04 12:11 | disposition home or self-care (01) | DRG 683 ==
LOC: ENRESERVTM → ENRESERVDT → C.EDB 11:16 → C.MS4W 15:37 → OBSVTOIN 09-03 16:08
PROVIDERS: ADMIT Hospitalist; ATTEND Emergency Medicine
DX: N17.9 Acute kidney failure, unspecified (principal); I13.0 Hypertensive heart and chronic kidney disease with heart failure and stage 1 through stage 4 chronic kidney disease, or unspecified chronic kidney disease; I50.32 Chronic diastolic (congestive) heart failure; N18.4 Chronic kidney disease, stage 4 (severe); K59.01 Slow transit constipation; R63.4 Abnormal weight loss; E87.6 Hypokalemia; I25.10 Atherosclerotic heart disease of native coronary artery without angina pectoris; E11.22 Type 2 diabetes mellitus with diabetic chronic kidney disease; J44.9 Chronic obstructive pulmonary disease, unspecified; E78.5 Hyperlipidemia, unspecified; Z95.1 Presence of aortocoronary bypass graft; Z98.61 Coronary angioplasty status; Z86.14 Personal history of Methicillin resistant Staphylococcus aureus infection; Z87.891 Personal history of nicotine dependence; Z99.81 Dependence on supplemental oxygen; Z79.4 Long term (current) use of insulin; Z79.82 Long term (current) use of aspirin; Z79.899 Other long term (current) drug therapy; Z82.49 Family history of ischemic heart disease and other diseases of the circulatory system; Z83.6 Family history of other diseases of the respiratory system; Z53.09 Procedure and treatment not carried out because of other contraindication; N40.0 Benign prostatic hyperplasia without lower urinary tract symptoms; E66.01 Morbid (severe) obesity due to excess calories

== ENCOUNTER 2016-09-12 22:59 | Observation (INO) | payer OTHER ==
[~2016-09-12] VITALS: Ht 175.3 cm; Wt 103.9 kg
[~2016-09-12 22:59] MED LIST changes: -ACET10SO3 NEB; -FURO80TA63 PO; -METO2.5T PO; +SENN8.6T7 PO
--- NOTE | 2016-09-12 23:16 | EMERGENCY ROOM VISIT NOTE ---
History Report prepared by Rita: Ambika Mayorga Under the Supervision of: Dr. Dwayne Castellano M.D. First contact with patient: 23:01 Chief Complaint: RESPIRATORY DISTRESS Stated Complaint: SHORTNESS OF BREATH/COPD History of Present Illness The patient is a 71 year old male who presents to the Emergency Room via ALS with complaints of resolved chest tightness/pressure that began prior to arrival. The patient states that today he developed chest tightness and shortness of breath. He notes that he has been having abnormal urination, so he is unsure if he is having any fluid problems. Per EMS the patient was given aspirin and nitroglycerin which alleviated his symptoms. The patient denies any increased swelling to his bilateral lower extremities and reports normal bowel movements. He notes that he is scheduled for a bronchoscopy next week. The patient notes a history of a previous PA in 2004, stating that he has 2 stents and a 5 vessel bypass. He states that since his PA he had a nuclear stress test, but is unsure how long ago it was. Source of History: patient, EMS Onset: prior to arrival Position: chest Quality: pressure, other (tightness) Timing: resolved Modifying Factors (Relieving): other (aspirin and nitroglycerin) Associated Symptoms: + SOB, + urinary symptoms Review of Systems See HPI for pertinent positives & negatives. A total of 10 systems reviewed and were otherwise negative. Past Medical & Surgical Medical Problems: (1) Abdominal pain (2) JOAN (acute kidney injury) (3) Benign hypertension (4) Benign prostatic hyperplasia (5) Chest tightness (6) Chronic obstructive pulmonary disease (7) CKD (chronic kidney disease), stage IV (8) Congestive heart failure (9) Coronary artery disease (10) Diabetes mellitus type 2 (11) History of renal calculi (12) Hyperlipidemia (13) Morbid obesity (14) SOB (shortness of breath) Surgical Problems: (1) Status post coronary artery bypass grafting (2) Status post hip replacement Family History Heart disease Hypertension Lung disease Social History Smoking Status: Former Smoker Alcohol Use: none Drug Use: none Marital Status: Housing Status: lives with family Occupation Status: retired Current/Historical Medications Scheduled Albuterol Sulf (Proventil 0.083% 2.5MG/3ML), 2.5 MG INH QID Allopurinol (Zyloprim), 1.5 TAB PO QAM Aspirin (Aspirin Ec), 81 MG PO QAM Atorvastatin (Lipitor), 40 MG PO DAILY Calcitriol (Rocaltrol Cap), 0.25 MCG PO 3XWK Cholecalciferol (Vitamin D3), 2,000 UNITS PO BID Finasteride (Proscar), 5 MG PO QAM Furosemide (Furosemide), 80 MG PO BID Insulin Aspart (Novolog Flexpen), SQ TID Insulin Glargine (Lantus Solostar), 40 UNITS SQ QPM Linaclotide (Linzess), 1 CAP PO DAILY Metolazone (Metolazone), 5 MG PO DAILY Metoprolol Succ (Toprol Xl) (Toprol-Xl), 50 MG PO QAM Oxygen (Oxygen), 2 LITERS NA HS Potassium Ext Rel (Klor-Con), 30 MEQ PO BID Probiotic Product ([employer]), 1 CAP PO QAM Spironolactone (Aldactone), 12.5 MG PO QAM Scheduled PRN Colchicine (Colchicine), 1 TAB PO DAILY PRN for gout Docusate Sodium (Colace), 100 MG PO BID PRN for Constipation Ipratropium [place] (Ipratropium [place]), 1 VIAL NEB QID PRN for Shortness of Breath Polyethylene Glycol 3350 (Miralax), 255 GM PO DAILY PRN for Constipation Sennosides-Docusate Sodium (Senokot S), 1 TAB PO QAM PRN for Constipation Tramadol (Ultram), 50 MG PO Q6H PRN for Pain Allergies Coded Allergies: Prednisone (Verified Adverse Reaction, Intermediate, 'shakiness', 09/12/16) Physical Exam Vital Signs Date Time Temp Pulse Resp B/P Pulse Ox O2 Delivery O2 Flow Rate FiO2 09/12/16 23:08 94 Room Air 09/12/16 23:04 36.6 84 20 118/62 95 Room Air Physical Exam GENERAL: Patient is well appearing and in no acute distress. HEENT: No acute trauma, normocephalic atraumatic, mucous membranes moist, no nasal congestion, no scleral icterus. NECK: No stridor, no adenopathy, no meningismus, trachea is midline. LUNGS: No dyspnea. Clear to auscultation and equal bilaterally. No wheeze, no rhonchi. HEART: Regular rate and rhythm. No murmurs, rubs, gallops appreciated. ABDOMEN: Soft, nontender, bowel sounds positive, no masses appreciated, no peritonitis. BACK: No midline tenderness, no CVA tenderness EXTREMITIES: 1+ edema to bilateral lower extremities. Normal motion all extremities, no cyanosis. NEUROLOGIC: Alert and oriented, no acute motor or sensory deficits, no focal weakness, cranial nerves grossly intact. SKIN: No rash, no jaundice, no diaphoresis. Medical Decision & Procedures ER Provider Diagnostic Interpretation: 1 view chest ray: no infiltrate, left lower lobe effusion, similar to previous chest x-ray, sternotomy wires in place, no acute change from previous. Laboratory Results 09/12/16 22:36 Red Blood Count 4.93, Mean Corpuscular Volume 91.5, Mean Corpuscular Hemoglobin 30.4, Mean Corpuscular Hemoglobin Concent 33.3, Mean Platelet Volume 10.6, Neutrophils (%) (Auto) 88.1, Lymphocytes (%) (Auto) 8.1, Monocytes (%) (Auto) 2.7, Eosinophils (%) (Auto) 0.5, Basophils (%) (Auto) 0.3, Neutrophils # (Auto) 10.14, Lymphocytes # (Auto) 0.93, Monocytes # (Auto) 0.31, Eosinophils # (Auto) 0.06, Basophils # (Auto) 0.03 09/12/16 22:36 Test 09/12/16 22:36 09/12/16 23:36 White Blood Count 11.50 K/uL (4.8-10.8) Red Blood Count 4.93 M/uL (4.7-6.1) Hemoglobin 15.0 g/dL (14.0-18.0) Hematocrit 45.1 % (42-52) Mean Corpuscular Volume 91.5 fL (80-100) Mean Corpuscular Hemoglobin 30.4 pg (25-34) Mean Corpuscular Hemoglobin Concent 33.3 g/dl (32-36) Platelet Count 160 K/uL (130-400) Mean Platelet Volume 10.6 fL (7.4-10.4) Neutrophils (%) (Auto) 88.1 % Lymphocytes (%) (Auto) 8.1 % Monocytes (%) (Auto) 2.7 % Eosinophils (%) (Auto) 0.5 % Basophils (%) (Auto) 0.3 % Neutrophils # (Auto) 10.14 K/uL (1.4-6.5) Lymphocytes # (Auto) 0.93 K/uL (1.2-3.4) Monocytes # (Auto) 0.31 K/uL (0.11-0.59) Eosinophils # (Auto) 0.06 K/uL (0-0.5) Basophils # (Auto) 0.03 K/uL (0-0.2) RDW Standard Deviation 46.7 fL (36.4-46.3) RDW Coefficient of Variation 14.0 % (11.5-14.5) Immature Granulocyte % (Auto) 0.3 % Immature Granulocyte # (Auto) 0.03 K/uL (0.00-0.02) Prothrombin Time 10.7 SECONDS (9.0-12.0) Prothromb Time International Ratio 1.0 (0.9-1.1) Anion Gap 9.0 mmol/L (3-11) Est Creatinine Clear Calc Drug Dose 47.1 ml/min Estimated GFR () 45.7 Estimated GFR (Non- 39.4 BUN/Creatinine Ratio 14.3 (10-20) Calcium Level 9.1 mg/dl (8.5-10.1) Total Creatine Kinase 52 U/L (39-308) Creatine Kinase MB 2.3 ng/ml (0.5-3.6) Creatine Kinase MB Ratio 4.4 (0-3.0) Troponin I < 0.015 ng/ml (0-0.045) Pro-B-Type Natriuretic Peptide 496 pg/ml (0-900) Urine Color YELLOW Urine Appearance CLEAR (CLEAR) Urine pH 7.5 (4.5-7.5) Urine Specific [place] 1.008 (1.000-1.030) Urine Protein NEG (NEG) Urine Glucose (UA) NEG (NEG) Urine Ketones NEG (NEG) Urine Occult Blood TRACE (NEG) Urine Nitrite NEG (NEG) Urine Bilirubin NEG (NEG) Urine Urobilinogen NEG (NEG) Urine Leukocyte Esterase MODERATE (NEG) Urine WBC (Auto) >30 /hpf (0-5) Urine RBC (Auto) 0-4 /hpf (0-4) Urine Hyaline Casts (Auto) 1-5 /lpf (0-5) Urine Epithelial Cells (Auto) 0-5 /lpf (0-5) Urine Bacteria (Auto) NEG (NEG) Laboratory results as reviewed by me. ECG Indication: chest pain, SOB/dyspnea Rate (beats per minute): 84 Rhythm: normal sinus Findings: no acute ischemic change, no ectopy, other (left fasicular block) Comparison ECG Date: 09/02/16 Change: no significant change ED Course 2309: The patient was evaluated in room B2. A complete history and physical exam was performed. 0000: The patient was able to urinate without difficulty. I discussed all the exam findings with him and I discussed the treatment plan. He verbalized complete understanding and agreement. He will be evaluated for further treatment. 0020: I discussed the patients case with Susan Zhang. He is going to evaluate the patient for further treatment. Medical Decision Differential: Cardiac Ischemia (STEMI, NSTEMI, Unstable Angina, etc), Aortic Dissection, Arrhythmia, Pulmonary Embolism, Pneumonia, Pneumothorax, MSK, Infectious, Pericarditis/Myocarditis, Esophageal Rupture, Gastrointestinal, amongst other pathologies entertained. 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 He has no further complaints. Complex cardiac history and high risk CAD. Furthermore he has been having significant breathing and throat clearing issues last few months, but denies any current symptoms of this. Does have dirty urine with complaint of difficulty urinating but denies any fevers, urinary burning, nor other UTI symptoms and thus will defer abx choice/option to hospitalist. Stable throughout ED stay without other complaints. Consults Time Called: 17 Consulting Physician: Susan Zhang Returned Call: 0020 I discussed the patients case with Susan Zhang. He is going to evaluate the patient for further treatment. Impression Primary Impression: Left chest pressure Scribe Attestation The scribe's documentation has been prepared under my direction and personally reviewed by me in its entirety. I confirm that the note above accurately reflects all work, treatment, procedures, and medical decision making performed by me. Departure Information Dispostion Being Evaluated By Hospitalist Referrals Neri Hatch M.D. (PCP)
[2016-09-12 23:24] LABS: BASO % 0.3 %; BASO ABS # 0.03 K/uL (0-0.2); COMPLETE YES; EOS % 0.5 %; HEMATOCRIT 45.1 % (42-52); IG% 0.3 %; LYMPH % 8.1 %; LYMPH ABS # 0.93 K/uL (1.2-3.4); MEAN CELL VOLUME 91.5 fL (80-100); MEAN CORPUSCULAR HEMOGLOBIN 30.4 pg (25-34); MEAN CORPUSCULAR HGB CONC 33.3 g/dl (32-36); MEAN PLATELET VOLUME 10.6 fL (7.4-10.4); MONO % 2.7 %; NEUT % 88.1 %; PLATELET COUNT 160 K/uL (130-400); RED BLOOD COUNT 4.93 M/uL (4.7-6.1)
[2016-09-13] VITALS (11 sets, daily range): BP systolic 116–126; BP diastolic 62–77; PULSE 75–88; TEMP 36.5–37; O2SAT 93–97; Ht 175.3 cm; Wt 103.9 kg
[2016-09-13 00:04] LABS: BLOOD UREA NITROGEN 24 mg/dl (7-18); BUN/CREATININE RATIO 14.3 (10-20); CALCIUM 9.1 mg/dl (8.5-10.1); CARBON DIOXIDE 32 mmol/L (21-32); CHLORIDE 99 mmol/L (98-107); GLUCOSE 168 mg/dl (70-99); POTASSIUM 4.2 mmol/L (3.5-5.1); SODIUM 140 mmol/L (136-145)
[2016-09-13 00:07] LABS: URINE APPEARANCE CLEAR (CLEAR); URINE BILIRUBIN NEG (NEG); URINE COLOR YELLOW; URINE EPITHELIAL CELL AUTO 0-5 /lpf (0-5); URINE NITRITE NEG (NEG); URINE PH 7.5 (4.5-7.5); URINE SPECIFIC GRAVITY 1.008 (1.000-1.030); UROBILINOGEN NEG (NEG); ZZUR CULT IF INDIC CLEAN CATCH YES
[2016-09-13 00:09] LABS: MANUAL MICROSCOPIC REQUIRED? NO; REVIEW REQ? NO
[2016-09-13 00:09] LABS: CKMB/CK RATIO 4.4 (0-3.0)
[2016-09-13] MEDS ORDERED: NITROGLYCERIN 0.4 MG SL PER TAB CHARGE SL PRN (01:00)
[2016-09-13] MEDS ORDERED: ZRX25 PO (01:09)
[2016-09-13] MEDS ORDERED: LPT/40 PO (01:09)
[2016-09-13] MEDS ORDERED: LINA1CAP PO (01:13)
[2016-09-13] MEDS ORDERED: IV FLUIDS COMPLETED PRN (01:15)
[2016-09-13] MEDS ORDERED: LSX80 PO (01:17)
[2016-09-13] MEDS ORDERED: COLCPOW6 PO (01:22)
[2016-09-13] MEDS ORDERED: POLY335019 PO (01:22)
[2016-09-13] MEDS ORDERED: DOCU-94 PO (01:22)
[2016-09-13] MEDS ORDERED: DEXTROSE 50% 50 ML SYR IV PRN (01:30)
[2016-09-13] MEDS ORDERED: GLUCOSE 10 TABS/TUBE PO PRN (01:30)
[2016-09-13] MEDS ORDERED: TRAMADOL HCL 50 MG TAB PO PRN (01:30)
[2016-09-13] MEDS ORDERED: DOCUSATE SODIUM 100 MG CAP PO PRN (01:30)
[2016-09-13] MEDS ORDERED: GLUCOSE 40% GEL 15 GM TUBE PO PRN (01:30)
[2016-09-13] MEDS ORDERED: DOCUSATE SODIUM/SENNA 50/8.6MG TAB PO PRN (01:30)
[2016-09-13] MEDS ORDERED: GLUCAGON FOR INJ 1 MG VIAL SQ PRN (01:30)
[2016-09-13] MEDS: LINZESS~ORDER AWAITING ACTION SCH ×2 (02:30→07:49)
--- NOTE | 2016-09-13 02:46 | History and Physical ---
History & Physical Date & Time of Service: Sep 13, 2016 at 01:44 Chief Complaint: Shortness Of Breath/Copd Primary Care Physician: Neri Hatch M.D. History of Present Illness Source: patient, clinic records, hospital records 71 year old male with PMH of DM Type 2, COPD, CHF, CKD stage 3, HTN, CAD s/p CABG x5 in 2004, with PCI in 2005 and 2006, and most recent catheterization in 2011 presents to the Emergency Room via ALS with complaints of resolved chest tightness/pressure started this afternoon. Pt said that he was not feeling very well this morning. He said that this afternoon he developed chest discomfort that he describes as tightness and pressure like. He said that he feels like someone sits on his chest. He said that he was moving and doing some work in the house when the chest tightness/pressure occurred. He said that he has baseline SOB, but felt his SOB worst today with minimal exertion.Per EMS the patient was given aspirin and nitroglycerin which alleviated his symptom. He is scheduled for bronchoscopy on 09/20. Currently pt said that his symptoms improved. Denies any palpitation, chest pain, dizziness, fever, chills or urinary symptoms. Past Medical/Surgical History Medical Problems: (1) Benign hypertension Status: Chronic (2) Benign prostatic hyperplasia Status: Chronic (3) Chronic obstructive pulmonary disease Status: Chronic (4) CKD (chronic kidney disease), stage IV Status: Chronic (5) Congestive heart failure Status: Chronic (6) Coronary artery disease Status: Chronic (7) Diabetes mellitus type 2 Status: Chronic (8) History of renal calculi Status: Chronic (9) Hyperlipidemia Status: Chronic (10) Morbid obesity Status: Chronic Surgical Problems: (1) Status post coronary artery bypass grafting Permanent Comment: x 2004 Status: Chronic (2) Status post hip replacement Status: Chronic Family History Heart disease Hypertension Lung disease Social History Smoking Status: Former Smoker Alcohol Use: none Drug Use: none Marital Status: Housing status: lives with family Occupational Status: retired Immunizations History of Influenza Vaccine: Yes History of Tetanus Vaccine?: Yes History of Pneumococcal: Yes Pneumococcal Date: Aug 29, 2014 History of Hepatitis B Vaccine: No Multi-Drug Resistant Organisms History of MDRO: Yes Type of MDRO: MRSA Allergies Coded Allergies: Prednisone (Verified Adverse Reaction, Intermediate, 'shakiness', 09/12/16) Home Medications Scheduled Albuterol Sulf (Proventil 0.083% 2.5MG/3ML), 2.5 MG INH QID Allopurinol (Zyloprim), 1.5 TAB PO QAM Aspirin (Aspirin Ec), 81 MG PO QAM Atorvastatin (Lipitor), 40 MG PO DAILY Calcitriol (Rocaltrol Cap), 0.25 MCG PO 3XWK Cholecalciferol (Vitamin D3), 2,000 UNITS PO BID Finasteride (Proscar), 5 MG PO QAM Furosemide (Furosemide), 80 MG PO BID Insulin Aspart (Novolog Flexpen), SQ TID Insulin Glargine (Lantus Solostar), 40 UNITS SQ QPM Linaclotide (Linzess), 1 CAP PO DAILY Metolazone (Metolazone), 5 MG PO DAILY Metoprolol Succ (Toprol Xl) (Toprol-Xl), 50 MG PO QAM Oxygen (Oxygen), 2 LITERS NA HS Potassium Ext Rel (Klor-Con), 30 MEQ PO BID Probiotic Product (Xspand), 1 CAP PO QAM Spironolactone (Aldactone), 12.5 MG PO QAM Scheduled PRN Colchicine (Colchicine), 1 TAB PO DAILY PRN for gout Docusate Sodium (Colace), 100 MG PO BID PRN for Constipation Ipratropium Mcfarland (Ipratropium Mcfarland), 1 VIAL NEB QID PRN for Shortness of Breath Polyethylene Glycol 3350 (Miralax), 255 GM PO DAILY PRN for Constipation Sennosides-Docusate Sodium (Senokot S), 1 TAB PO QAM PRN for Constipation Tramadol (Ultram), 50 MG PO Q6H PRN for Pain Review of Systems Constitutional: + weight loss, No chills, No fever, No sweats Eyes: No discharge, No eye pain ENT: No hearing loss, No nasal symptoms, No unusual epistaxis Respiratory: + dyspnea on exertion, + shortness of breath, No cough, No sputum , No wheezing Cardiovascular: + edema, + orthopnea, + problem reported (thighness and pressure in his chest), No palpitations Abdomen: No nausea, No pain, No vomiting Musculoskeletal: No calf pain Genitourinary - Male: No dysuria, No hematuria, No urinary urgency Neurologic: No paralysis, No weakness Psychiatric: No substance abuse Endocrine: No excessive thirst Hematologic / Lymphatic: No night sweats Integumentary: No itch, No rash Physical Exam Vital Signs Date Time Temp Pulse Resp B/P Pulse Ox O2 Delivery O2 Flow Rate FiO2 09/13/16 01:26 80 20 122/68 94 09/12/16 23:08 94 Room Air 09/12/16 23:04 36.6 84 20 118/62 95 Room Air General Appearance: WD/WN, no apparent distress Head: normocephalic, atraumatic Eyes: normal inspection, PERRL, EOMI ENT: normal ENT inspection, hearing grossly normal Neck: supple, no JVD Respiratory/Chest: lungs clear, no respiratory distress, no accessory muscle use Cardiovascular: regular rate, rhythm, no gallop, no JVD Abdomen/GI: normal bowel sounds, non tender Back: normal inspection, no CVA tenderness Extremities/Musculoskelatal: no calf tenderness, + pertinent finding (+1 edema) Neurologic/Psych: no motor/sensory deficits, alert, normal mood/affect Skin: warm/dry, no rash Diagnostics Laboratory Results Results Past 24 Hours Test 09/12/16 22:36 09/12/16 23:36 Range/Units White Blood Count 11.50 4.8-10.8 K/uL Red Blood Count 4.93 4.7-6.1 M/uL Hemoglobin 15.0 14.0-18.0 g/dL Hematocrit 45.1 42-52 % Mean Corpuscular Volume 91.5 80-100 fL Mean Corpuscular Hemoglobin 30.4 25-34 pg Mean Corpuscular Hemoglobin Concent 33.3 32-36 g/dl Platelet Count 160 130-400 K/uL Mean Platelet Volume 10.6 7.4-10.4 fL Neutrophils (%) (Auto) 88.1 % Lymphocytes (%) (Auto) 8.1 % Monocytes (%) (Auto) 2.7 % Eosinophils (%) (Auto) 0.5 % Basophils (%) (Auto) 0.3 % Neutrophils # (Auto) 10.14 1.4-6.5 K/uL Lymphocytes # (Auto) 0.93 1.2-3.4 K/uL Monocytes # (Auto) 0.31 0.11-0.59 K/uL Eosinophils # (Auto) 0.06 0-0.5 K/uL Basophils # (Auto) 0.03 0-0.2 K/uL RDW Standard Deviation 46.7 36.4-46.3 fL RDW Coefficient of Variation 14.0 11.5-14.5 % Immature Granulocyte % (Auto) 0.3 % Immature Granulocyte # (Auto) 0.03 0.00-0.02 K/uL Sodium Level 140 136-145 mmol/L Potassium Level 4.2 3.5-5.1 mmol/L Chloride Level 99 98-107 mmol/L Carbon Dioxide Level 32 21-32 mmol/L Anion Gap 9.0 3-11 mmol/L Blood Urea Nitrogen 24 7-18 mg/dl Creatinine 1.70 0.60-1.40 mg/dl Est Creatinine Clear Calc Drug Dose 47.1 ml/min Estimated GFR () 45.7 Estimated GFR (Non- 39.4 BUN/Creatinine Ratio 14.3 10-20 Random Glucose 168 70-99 mg/dl Calcium Level 9.1 8.5-10.1 mg/dl Total Creatine Kinase 52 39-308 U/L Creatine Kinase MB 2.3 0.5-3.6 ng/ml Creatine Kinase MB Ratio 4.4 0-3.0 Troponin I < 0.015 0-0.045 ng/ml Pro-B-Type Natriuretic Peptide 496 0-900 pg/ml Urine Color YELLOW Urine Appearance CLEAR CLEAR Urine pH 7.5 4.5-7.5 Urine Specific [place] 1.008 1.000-1.030 Urine Protein NEG NEG Urine Glucose (UA) NEG NEG Urine Ketones NEG NEG Urine Occult Blood TRACE NEG Urine Nitrite NEG NEG Urine Bilirubin NEG NEG Urine Urobilinogen NEG NEG Urine Leukocyte Esterase MODERATE NEG Urine WBC (Auto) >30 0-5 /hpf Urine RBC (Auto) 0-4 0-4 /hpf Urine Hyaline Casts (Auto) 1-5 0-5 /lpf Urine Epithelial Cells (Auto) 0-5 0-5 /lpf Urine Bacteria (Auto) NEG NEG Microbiology Results 09/12/16 Urine Culture, Received Pending No Pneumothorax, No Infiltrate Impression Assessment and Plan Chest Tightness/Pressure Need to r/o ACS Pt has significant risks factors EKG did not show acute ischemic change Received aspirin and nitro Asymptomatic currently 1st of troponin negative will monitor CM and repeat EKG in am Consider to get an echo to evaluate wall motion abnormality Will continue monitor pt in telemetry COPD schedule for bronchoscopy on 09/20 continue duoneb prn continue oxygen supplement Abnormal UA asymptomatic, afebrile WBC slightly elevated hold on abx for now urine cx pending CAD continue metoprolol, aspirin, statin Monitor in telemetry Diastolic CHF Not in failure at present continue furosemide 80mg BID, spironolactone and metoprolol Stable Last echo was 11/12 * Occasional PVCs were present during the echocardiogram. * The left ventricular wall motion is normal. * The LV Ejection Fraction = 55-60%. * Grossly normal valvular function. * The echodensity within the pericardial space is unchanged compared to the prior study , and consistent with pericardial fat. There is no pericardial effusion. DM Type 2 Recent hba1c 6.8 (09/10/16)- at goal On Lantus 40 units, will decrease Lantus to 30 unit will in the hospital insulin coverage Chronic Kidney disease stage 3 Creatine at baseline 1.7 Stable avoid nephrotoxic agents Dyslipidemia LDL 50 (09/10/16) at goal continue lipitor DVT px on heparin subq CODE STATUS FULL CODE as per Patient Level of Care Telemetry Resuscitation Status FULL RESUSCITATION VTE Prophylaxis VTE Risk Assessment Done? Y/N: Yes Risk Level: Moderate Given or contraindicated: Unfractionated heparin SQ
[2016-09-13 02:58] LABS: PROTHROMBIN TIME (PATIENT) 10.7 SECONDS (9.0-12.0)
[2016-09-13 04:37] LABS: HEMATOCRIT 42.5 % (42-52); MEAN CORPUSCULAR HEMOGLOBIN 30.3 pg (25-34); MEAN CORPUSCULAR HGB CONC 32.9 g/dl (32-36); MEAN PLATELET VOLUME 11.2 fL (7.4-10.4); PLATELET COUNT 160 K/uL (130-400); RED BLOOD COUNT 4.62 M/uL (4.7-6.1); WHITE BLOOD COUNT 8.45 K/uL (4.8-10.8)
[2016-09-13 05:00] LABS: BLOOD UREA NITROGEN 25 mg/dl (7-18); BUN/CREATININE RATIO 14.7 (10-20); CALCIUM 8.9 mg/dl (8.5-10.1); CARBON DIOXIDE 34 mmol/L (21-32); CHLORIDE 100 mmol/L (98-107); GLUCOSE 188 mg/dl (70-99); POTASSIUM 4.6 mmol/L (3.5-5.1); SODIUM 138 mmol/L (136-145)
[2016-09-13] MEDS: ALBUT/IPRATROP 3MG/0.5MG NEB 3 ML VIAL INH SCH ×4 (05:30→14:09)
[2016-09-13] MEDS: HEPARIN SOD 5000 UNIT/0.5 ML CARP SQ SCH ×2 (06:00→14:00)
--- NOTE | 2016-09-13 06:45 | DIAGNOSTIC IMAGING REPORT ---
CHEST ONE VIEW PORTABLE CLINICAL HISTORY: Chest Pain dyspnea COMPARISON STUDY: 09/02/2016 FINDINGS: Moderate cardiomegaly. Pulmonary vascular prominence. Mild basilar interstitial change. IMPRESSION: Early congestive failure Electronically signed by: Dereje Patel M.D. 09/13/2016 6:43 AM Dictated Date/Time: 09/13/2016 6:40 AM
[2016-09-13] MEDS: INSULIN ASPART 100 UNITS/ML 3 ML PEN SC SCH ×2 (08:10→11:58)
[2016-09-13] MEDS ORDERED: ASPIRIN 81 MG ECTAB PO SCH ×2 (09:00)
[2016-09-13] MEDS ORDERED: SPIRONOLACTONE 25 MG TAB PO SCH (09:00)
[2016-09-13] MEDS ORDERED: PROBIOTIC PRODUCT PO SCH (09:00)
[2016-09-13] MEDS ORDERED: FINASTERIDE 5 MG TAB PO SCH (09:00)
[2016-09-13] MEDS ORDERED: CALCITRIOL 0.25 MCG CAP PO SCH (09:00)
[2016-09-13] MEDS ORDERED: CHOLECALCIFEROL 1000 INTER.UNIT TAB PO SCH (09:00)
[2016-09-13] MEDS ORDERED: METOPROLOL SUCC 50MG EXT REL TAB PO SCH (09:00)
[2016-09-13] MEDS ORDERED: ALLOPURINOL 300 MG TAB PO SCH (09:00)
[2016-09-13] MEDS ORDERED: ATORVASTATIN 40 MG TAB PO SCH (09:00)
[2016-09-13] MEDS ORDERED: FUROSEMIDE 80 MG TAB PO SCH (09:00)
[2016-09-13] MEDS ORDERED: PERFLUTREN LIPID MICROSPHERE (DEFINITY) IV ONE (11:09)
--- NOTE | 2016-09-13 12:21 | ECHOCARDIOGRAM REPORT ---
*NOTICE TO RECEIVING [employer]Y This information is strictly Confidential and protected under [place] law. [place] law prohibits you from making any further disclosure of this information unless further disclosure is expressly permitted by the written consent of the person to whom it pertains or is authorized by law. A general authorization for the release of medical or other information is not sufficient for this purpose. Hospital accepts no responsibility if the information is made available to any other person, INCLUDING THE PATIENT. Interpretation Summary * Name: Godwin CARROLL Study Date: 09/13/2016 10:39 AM BP: 126/62 mmHg * Patient Location: C.2E\S\E212\S\1 HR: 77 * : 1945 (M/d/yyyy) Gender: Male Height: 69 in * Age: 71 yrs Ethnicity: CA Weight: 233 lb * Ordering Physician: Ramona Johnson * Referring Physician: ALANNA * Performed By: Ambika Valenzuela RDCS * * Reason For Study: CHEST PAIN * BSA: 2.2 m2 * History: CHEST PAIN * -- Conclusions -- * No change compared to previous study of 11/13/15. * Normal LV chamber size with mild concentric LVH. * Normal LV systolic function, EF 55-60%. * No segmental left ventricular wall motion abnormalities are noted. * Grade I diastolic dysfunction. * Moderate mitral annular calcification. * Pericardial fat pat visualized. Procedure Details * A contrast injection of Definity was performed to improve assessment of LV function. * Contrast was injected into an intravenous site in the left arm. * One vial of Definity ultrasound contrast was diluted in normal saline to a total volume of 10 ml. A total of '2' ml of solution was administered during imaging. * Lot # [id number] of Definity utilized for procedure. * Expiration date 1 JUL 17. * The attending nurse who injected the contrast agent was DELMER HARVEY RN. Left Ventricle * The left ventricle is normal in size. * There is mild concentric left ventricular hypertrophy. * The basal septum is thickened and angulated consistent with sigmoid septum. * Ejection Fraction = 55-60%. * Left ventricular systolic function is normal. * No segmental left ventricular wall motion abnormalities are noted. * The left ventricular wall motion is normal. Right Ventricle * The right ventricular cavity size is normal (basal dimension <4.2 cm in right ventricular apical 4-chamber view). * The right ventricular systolic function is normal as assessed by tricuspid annular plane systolic excursion (TAPSE) (normal >1.5 cm). Atria * The left atrium is not well visualized. * The left atrial size is normal. * Right atrium not well visualized. * There is no evidence of atrial septal defect, but resolution does not allow assessment for a patent foramen ovale. Mitral Valve * There is moderate mitral annular calcification. * There is no mitral valve stenosis. * There is no mitral regurgitation noted. Tricuspid Valve * The tricuspid valve is normal in structure and function. Aortic Valve * The aortic valve is normal in structure and function. * No hemodynamically significant valvular aortic stenosis. * There is no significant aortic regurgitation. Pulmonic Valve * The pulmonary valve is not well seen, but the Doppler examination is normal without significant regurgitation or stenosis. Great Vessels * The aortic root is not well visualized. Pericardium/Pleural * There is no pericardial effusion. * Pericardial fat pat visualized. Left Ventricular Diastolic Function * Grade I diastolic dysfunction, (abnormal relaxation pattern). MMode 2D Measurements and Calculations IVSd 1.5 cm IVSs 2.0 cm LVIDd 4.8 cm LVIDs 3.4 cm LVPWd 1.2 cm LVPWs 1.7 cm IVS/LVPW 1.2 FS 29.2 % EDV(Teich) 108.8 ml ESV(Teich) 48.0 ml EF(Teich) 55.9 % EDV(cubed) 112.3 ml ESV(cubed) 39.9 ml EF(cubed) 64.5 % % IVS thick 38.2 % % LVPW thick 40.0 % LV mass(C)d 258.9 grams LV mass(C)dI 117.5 grams/m\S\2 LV mass(C)s 270.8 grams LV mass(C)sI 122.8 grams/m\S\2 SV(Teich) 60.8 ml SI(Teich) 27.6 ml/m\S\2 SV(cubed) 72.4 ml SI(cubed) 32.8 ml/m\S\2 LVAd ap4 32.1 cm\S\2 LVLd ap4 8.8 cm EDV(MOD-sp4) 94.8 ml LVAs ap4 20.8 cm\S\2 LVLs ap4 7.9 cm ESV(MOD-sp4) 44.1 ml EF(MOD-sp4) 53.5 % LVAd ap2 32.6 cm\S\2 LVLd ap2 9.2 cm EDV(MOD-sp2) 93.5 ml LVAs ap2 19.2 cm\S\2 LVLs ap2 7.9 cm ESV(MOD-sp2) 39.5 ml EF(MOD-sp2) 57.8 % SV(MOD-sp4) 50.7 ml SI(MOD-sp4) 23.0 ml/m\S\2 SV(MOD-sp2) 54.0 ml SI(MOD-sp2) 24.5 ml/m\S\2 Doppler Measurements and Calculations MV E max [place] 89.7 cm/sec MV A max [place] 118.7 cm/sec MV E/A 0.76 MV dec time 0.33 sec Ao V2 max 111.0 cm/sec Ao max PG 4.9 mmHg Ao max PG (full) 2.2 mmHg LV V1 max PG 2.7 mmHg LV V1 max 82.0 cm/sec
--- NOTE | 2016-09-13 14:09 | Discharge Instructions ---
Discharge Instructions Date of Service Sep 13, 2016. Admission Reason for Admission: Chest Tightness, Sob Discharge Discharge Diagnosis / Problem: chest pain Discharge Goals Goal(s): Decrease discomfort, Improve function Activity Recommendations Activity Limitations: resume your previous activity . Instructions / Follow-Up Instructions / Follow-Up FOLLOWUP WITH FAMILY DOCTOR ON August AT 2:45PM LAB: BMP IN 3-4 DAYS AND FOLLOW RESULTS WITH FAMILY DOCTOR. REPORT TO ER FOR ANY CHEST PAIN OR SOB OR ANY CHANGE IN MEDICAL CONDITION. Call your Primary Care doctor if any of the following symptoms or problems start or get worse: * Shortness of breath or difficulty breathing * Wake up at night short of breath * Chest pain * Cough * Swelling of your hands, feet, or legs * More fatigued or tired with your normal activity * Palpitations - sudden fast heart beats WEIGHT * Weigh yourself every morning after using the bathroom. * Use the same scale. * Wear the same amount of clothing. * Write your weight down on a chart. * Call your Primary Care doctor if you gain more than 2-3 pounds in 1-2 days. MEDICATIONS * Use this discharge instruction sheet for medication instructions. * Take your medications at the time your doctor ordered. * Do not skip a dose of your medicines. * If you miss a dose of medicine, take it as soon as possible, but DO NOT DOUBLE A DOSE. * Read your medicine information when you get home. * Know all of the side effects of your medicine. If in doubt, ask your pharmacist * Call your Primary Care doctor's office if you have any side effects. * Be sure all of your doctors know what medicine and herbs you take (including cold, flu, and herbal medicine). Take the following with you to your follow-up doctor appointments: * Weight Chart * Medication List * List of questions Do not drink excessive alcohol, beer or wine. Current Hospital Diet Patient's current hospital diet: Diabetes Type 2 Diet, AHA Diet (Heart Healthy) Discharge Diet Recommended Diet: AHA Diet (Heart Healthy), Diabetes Type 2 Diet Pending Studies Studies pending at discharge: no Laboratory Results Hemoglobin A1c Test 09/03/16 07:14 Range/Units Estimated Average Glucose 148 mg/dl Hemoglobin A1c 6.8 H 4.5-5.6 % Medical Emergencies . Who to Call and When: Call 911 or go to the Emergency Room if: * If at any time you feel your situation is an emergency * You have tightness or pain in your chest that does not go away with rest or Nitroglycerin * You are very short of breath even with rest . Non-Emergent Contact Non-Emergency issues call your: Primary Care Provider . . "Provider Documentation" section prepared by Santos Gaytan. VTE Core Measure Inpt VTE Proph given/why not?: Unfractionated heparin SQ
--- NOTE | 2016-09-13 14:48 | Progress Note ---
Internal Med Progress Note Date of Service: Sep 13, 2016. Provider Documentation: SUBJECTIVE: resting comfortably feeling fine no chest pain or sob no nausea want to be discharged OBJECTIVE: Vital Signs-as noted below Exam: General-alert and awake and oriented ENT-normal hearing Neck-no neck masses Lungs-cta b/l no wheezing or crackles Heart-s1 and s2 heard regular rate and rhythm no murmurs Abdomen-soft bowel sounds present non tender no distension Extremities- no erythema Neuro-alert and awake moves extremities Lab data as noted below. ASSESSMENT & PLAN: Chest Tightness/Pressure currently asymptomatic serial ce negative echo unremarkable echo no changes discharged home to f/u with pcp COPD schedule for bronchoscopy on 09/20 continue duoneb prn continue oxygen supplement stable Abnormal UA asymptomatic, afebrile cx no growth CAD continue metoprolol, aspirin, statin stable Diastolic CHF Not in failure at present continue furosemide 80mg BID, spironolactone and metoprolol Stable echo no changes from previous echo DM Type 2 Recent hba1c 6.8 (09/10/16)- at goal On Lantus 40 units, will decrease Lantus to 30 unit will in the hospital insulin coverage Chronic Kidney disease stage 3 Creatine at baseline 1.7 Stable avoid nephrotoxic agents Dyslipidemia LDL 50 (09/10/16) at goal continue lipitor Discharged home Vital Signs: Date Time Temp Pulse Resp B/P Pulse Ox O2 Delivery O2 Flow Rate FiO2 09/13/16 14:21 36.6 77 14 96 Room Air 09/13/16 14:09 77 14 96 Room Air 09/13/16 12:00 96 Room Air 09/13/16 11:19 77 14 96 Room Air 09/13/16 11:17 36.6 75 20 116/65 97 Room Air 09/13/16 08:01 37.0 88 20 126/62 93 Room Air 09/13/16 08:00 96 Room Air 2.0 09/13/16 07:50 80 16 96 Room Air 09/13/16 05:30 84 16 96 Nasal Cannula 2.0 09/13/16 04:00 Nasal Cannula 2.0 09/13/16 03:20 36.5 78 20 118/74 94 Room Air 09/13/16 01:52 36.5 86 16 116/77 96 Room Air 09/13/16 01:26 80 20 122/68 94 09/12/16 23:08 94 Room Air 09/12/16 23:04 36.6 84 20 118/62 95 Room Air Lab Results: Results Past 24 Hours Test 09/12/16 22:36 09/12/16 23:36 09/13/16 04:13 09/13/16 07:04 Range/Units White Blood Count 11.50 8.45 4.8-10.8 K/uL Red Blood Count 4.93 4.62 4.7-6.1 M/uL Hemoglobin 15.0 14.0 14.0-18.0 g/dL Hematocrit 45.1 42.5 42-52 % Mean Corpuscular Volume 91.5 92.0 80-100 fL Mean Corpuscular Hemoglobin 30.4 30.3 25-34 pg Mean Corpuscular Hemoglobin Concent 33.3 32.9 32-36 g/dl Platelet Count 160 160 130-400 K/uL Mean Platelet Volume 10.6 11.2 7.4-10.4 fL Neutrophils (%) (Auto) 88.1 % Lymphocytes (%) (Auto) 8.1 % Monocytes (%) (Auto) 2.7 % Eosinophils (%) (Auto) 0.5 % Basophils (%) (Auto) 0.3 % Neutrophils # (Auto) 10.14 1.4-6.5 K/uL Lymphocytes # (Auto) 0.93 1.2-3.4 K/uL Monocytes # (Auto) 0.31 0.11-0.59 K/uL Eosinophils # (Auto) 0.06 0-0.5 K/uL Basophils # (Auto) 0.03 0-0.2 K/uL RDW Standard Deviation 46.7 46.5 36.4-46.3 fL RDW Coefficient of Variation 14.0 13.9 11.5-14.5 % Immature Granulocyte % (Auto) 0.3 % Immature Granulocyte # (Auto) 0.03 0.00-0.02 K/uL Prothrombin Time 10.7 9.0-12.0 SECONDS Prothromb Time International Ratio 1.0 0.9-1.1 Sodium Level 140 138 136-145 mmol/L Potassium Level 4.2 4.6 3.5-5.1 mmol/L Chloride Level 99 100 98-107 mmol/L Carbon Dioxide Level 32 34 21-32 mmol/L Anion Gap 9.0 4.0 3-11 mmol/L Blood Urea Nitrogen 24 25 7-18 mg/dl Creatinine 1.70 1.70 0.60-1.40 mg/dl Est Creatinine Clear Calc Drug Dose 47.1 47.1 ml/min Estimated GFR () 45.7 45.7 Estimated GFR (Non- 39.4 39.4 BUN/Creatinine Ratio 14.3 14.7 10-20 Random Glucose 168 188 70-99 mg/dl Calcium Level 9.1 8.9 8.5-10.1 mg/dl Total Creatine Kinase 52 39-308 U/L Creatine Kinase MB 2.3 1.5 0.5-3.6 ng/ml Creatine Kinase MB Ratio 4.4 0-3.0 Troponin I < 0.015 < 0.015 0-0.045 ng/ml Pro-B-Type Natriuretic Peptide 496 0-900 pg/ml Urine Color YELLOW Urine Appearance CLEAR CLEAR Urine pH 7.5 4.5-7.5 Urine Specific [place] 1.008 1.000-1.030 Urine Protein NEG NEG Urine Glucose (UA) NEG NEG Urine Ketones NEG NEG Urine Occult Blood TRACE NEG Urine Nitrite NEG NEG Urine Bilirubin NEG NEG Urine Urobilinogen NEG NEG Urine Leukocyte Esterase MODERATE NEG Urine WBC (Auto) >30 0-5 /hpf Urine RBC (Auto) 0-4 0-4 /hpf Urine Hyaline Casts (Auto) 1-5 0-5 /lpf Urine Epithelial Cells (Auto) 0-5 0-5 /lpf Urine Bacteria (Auto) NEG NEG Bedside Glucose 157 70-99 mg/dl Test 09/13/16 11:54 Range/Units Bedside Glucose 144 70-99 mg/dl Microbiology Results 09/12/16 Urine Culture - Preliminary, Resulted NO GROWTH - LESS THAN 1,000 COLONIES/...
--- NOTE | 2016-09-13 16:19 | Discharge Summary ---
Discharge Summary Date of Service Sep 13, 2016. Discharge Summary Admission Date: Sep 13, 2016 at 01:01 Discharge Date: Sep 13, 2016 Discharge Disposition: Home Principal Diagnosis: CHEST PAIN Secondary Diagnoses/Problems: (1) Benign hypertension Status: Chronic (2) Benign prostatic hyperplasia Status: Chronic (3) Chronic obstructive pulmonary disease Status: Chronic (4) CKD (chronic kidney disease), stage IV Status: Chronic (5) Congestive heart failure Status: Chronic (6) Coronary artery disease Status: Chronic (7) Diabetes mellitus type 2 Status: Chronic (8) History of renal calculi Status: Chronic (9) Hyperlipidemia Status: Chronic (10) Morbid obesity Status: Chronic Procedures: ECHO: No change compared to previous study of 11/13/15. * Normal LV chamber size with mild concentric LVH. * Normal LV systolic function, EF 55-60%. * No segmental left ventricular wall motion abnormalities are noted. * Grade I diastolic dysfunction. * Moderate mitral annular calcification. * Pericardial fat pat visualized. Medication Reconciliation Continued Medications: Albuterol Sulf (Proventil 0.083% 2.5MG/3ML) 2.5 Mg/3 Ml Nebu 2.5 MG INH QID Allopurinol (Zyloprim) 300 Mg Tab 1.5 TAB PO QAM, TAB Aspirin (Aspirin Ec) 81 Mg Tab 81 MG PO QAM Atorvastatin (Lipitor) 40 Mg Tab 40 MG PO DAILY, TAB Calcitriol (Rocaltrol Cap) 0.25 Mcg Cap 0.25 MCG PO 3XWK, CAP MON,WED,FRI Cholecalciferol (Vitamin D3) 2,000 Unit Tab 2000 UNITS PO BID Colchicine (Colchicine) 1 Pow Pow 1 TAB PO DAILY PRN for gout Docusate Sodium (Colace) 100 Mg Cap 100 MG PO BID PRN for Constipation, CAP Finasteride (Proscar) 5 Mg Tab 5 MG PO QAM, TAB Furosemide (Furosemide) 80 Mg Tab 80 MG PO BID, TAB Insulin Aspart (Novolog Flexpen) 100 Units/Ml Inj SQ TID PER SLIDING SCALE Insulin Glargine (Lantus Solostar) 100 Unit/Ml Inj 40 UNITS SQ QPM Ipratropium [place] (Ipratropium [place]) 0.5 Mg/2.5 Ml Nebu 1 VIAL NEB QID PRN for Shortness of Breath for 30 Days mix with albuterol ud Linaclotide (Linzess) 145 Mcg Cap 1 CAP PO DAILY before breakfast Metolazone (Metolazone) 2.5 Mg Tab 5 MG PO DAILY, TAB one half hr before furosemid as needed Metoprolol Succ (Toprol Xl) (Toprol-Xl) 50 Mg Tabcr 50 MG PO QAM Oxygen (Oxygen) Gas 2 LITERS NA HS Polyethylene Glycol 3350 (Miralax) 1 Pow Pow 255 GM PO DAILY PRN for Constipation, #527 GM Potassium Ext Rel (Klor-Con) 20 Meq Tabcr 30 MEQ PO BID Probiotic Product ([employer]) 1 Cap Cap 1 CAP PO QAM Sennosides-Docusate Sodium (Senokot S) 1 Tab Tab 1 TAB PO QAM PRN for Constipation, #30 TAB 1 Refill Spironolactone (Aldactone) 25 Mg Tab 12.5 MG PO QAM, TAB Tramadol (Ultram) 50 Mg Tab 50 MG PO Q6H PRN for Pain, TAB Admission Information HPI (per Admitting provider): 71 year old male with PMH of DM Type 2, COPD, CHF, CKD stage 3, HTN, CAD s/p CABG x5 in 2004, with PCI in 2005 and 2006, and most recent catheterization in 2011 presents to the Emergency Room via ALS with complaints of resolved chest tightness/pressure started this afternoon. Pt said that he was not feeling very well this morning. He said that this afternoon he developed chest discomfort that he describes as tightness and pressure like. He said that he feels like someone sits on his chest. He said that he was moving and doing some work in the house when the chest tightness/pressure occurred. He said that he has baseline SOB, but felt his SOB worst today with minimal exertion.Per EMS the patient was given aspirin and nitroglycerin which alleviated his symptom. He is scheduled for bronchoscopy on 09/20. Currently pt said that his symptoms improved. Denies any palpitation, chest pain, dizziness, fever, chills or urinary symptoms. Physical Exam (per Admitting): General Appearance: WD/WN, no apparent distress Head: normocephalic, atraumatic Eyes: normal inspection, PERRL, EOMI ENT: normal ENT inspection, hearing grossly normal Neck: supple, no JVD Respiratory/Chest: lungs clear, no respiratory distress, no accessory muscle use Cardiovascular: regular rate, rhythm, no gallop, no JVD Abdomen/GI: normal bowel sounds, non tender Back: normal inspection, no CVA tenderness Extremities/Musculoskelatal: no calf tenderness, + pertinent finding (+1 edema) Neurologic/Psych: no motor/sensory deficits, alert, normal mood/affect Skin: warm/dry, no rash Hospital Course Chest Tightness/Pressure currently asymptomatic serial ce negative echo unremarkable echo no changes discharged home to f/u with pcp COPD schedule for bronchoscopy on 09/20 continue duoneb prn continue oxygen supplement stable Abnormal UA asymptomatic, afebrile cx no growth CAD continue metoprolol, aspirin, statin stable Diastolic CHF Not in failure at present continue furosemide 80mg BID, spironolactone and metoprolol Stable echo no changes from previous echo DM Type 2 Recent hba1c 6.8 (09/10/16)- at goal On Lantus 40 units, will decrease Lantus to 30 unit will in the hospital insulin coverage Chronic Kidney disease stage 3 Creatine at baseline 1.7 Stable avoid nephrotoxic agents Dyslipidemia LDL 50 (09/10/16) at goal continue lipitor Discharged home Total time spent on discharge = 35MINUTES This includes examination of the patient, discharge planning, medication reconciliation, and communication with other providers. Discharge Instructions Discharge Instructions Date of Service Sep 13, 2016. Admission Reason for Admission: Chest Tightness, Sob Discharge Discharge Diagnosis / Problem: chest pain Discharge Goals Goal(s): Decrease discomfort, Improve function Activity Recommendations Activity Limitations: resume your previous activity . Instructions / Follow-Up Instructions / Follow-Up FOLLOWUP WITH FAMILY DOCTOR ON August AT 2:45PM LAB: BMP IN 3-4 DAYS AND FOLLOW RESULTS WITH FAMILY DOCTOR. REPORT TO ER FOR ANY CHEST PAIN OR SOB OR ANY CHANGE IN MEDICAL CONDITION. Call your Primary Care doctor if any of the following symptoms or problems start or get worse: * Shortness of breath or difficulty breathing * Wake up at night short of breath * Chest pain * Cough * Swelling of your hands, feet, or legs * More fatigued or tired with your normal activity * Palpitations - sudden fast heart beats WEIGHT * Weigh yourself every morning after using the bathroom. * Use the same scale. * Wear the same amount of clothing. * Write your weight down on a chart. * Call your Primary Care doctor if you gain more than 2-3 pounds in 1-2 days. MEDICATIONS * Use this discharge instruction sheet for medication instructions. * Take your medications at the time your doctor ordered. * Do not skip a dose of your medicines. * If you miss a dose of medicine, take it as soon as possible, but DO NOT DOUBLE A DOSE. * Read your medicine information when you get home. * Know all of the side effects of your medicine. If in doubt, ask your pharmacist * Call your Primary Care doctor's office if you have any side effects. * Be sure all of your doctors know what medicine and herbs you take (including cold, flu, and herbal medicine). Take the following with you to your follow-up doctor appointments: * Weight Chart * Medication List * List of questions Do not drink excessive alcohol, beer or wine. Current Hospital Diet Patient's current hospital diet: Diabetes Type 2 Diet, AHA Diet (Heart Healthy) Discharge Diet Recommended Diet: AHA Diet (Heart Healthy), Diabetes Type 2 Diet Pending Studies Studies pending at discharge: no Laboratory Results Hemoglobin A1c Test 09/03/16 07:14 Range/Units Estimated Average Glucose 148 mg/dl Hemoglobin A1c 6.8 H 4.5-5.6 % Medical Emergencies . Who to Call and When: Call 911 or go to the Emergency Room if: * If at any time you feel your situation is an emergency * You have tightness or pain in your chest that does not go away with rest or Nitroglycerin * You are very short of breath even with rest . Non-Emergent Contact Non-Emergency issues call your: Primary Care Provider . . "Provider Documentation" section prepared by Santos Gaytan. VTE Core Measure Inpt VTE Proph given/why not?: Unfractionated heparin SQ
[2016-09-13] MEDS ORDERED: INSULIN GLARGINE SOLOSTAR 100 UNITS/ML 3 ML PEN SQ SCH (21:00)
[2016-10-12] MEDS ORDERED: INSDGI SC (09:31)
[2016-10-12] MEDS ORDERED: OMEP40CA41 PO (09:31)
[2016-10-12] MEDS ORDERED: POTA20TA16 PO (09:31)
[2016-11-11] MEDS ORDERED: PRED10TA PO (14:29)
== END 2016-09-13 14:36 | disposition home or self-care (01) ==
LOC: ENRESERVTM → ENRESERVDT → EDBD 22:59 → C.EDB 23:00 → C.2E 09-13 01:01
PROVIDERS: ADMIT Internal Medicine; ATTEND Internal Medicine
DX: R07.9 Chest pain, unspecified (principal); N40.0 Benign prostatic hyperplasia without lower urinary tract symptoms; J44.9 Chronic obstructive pulmonary disease, unspecified; I12.9 Hypertensive chronic kidney disease with stage 1 through stage 4 chronic kidney disease, or unspecified chronic kidney disease; E11.22 Type 2 diabetes mellitus with diabetic chronic kidney disease; N18.4 Chronic kidney disease, stage 4 (severe); I25.10 Atherosclerotic heart disease of native coronary artery without angina pectoris; E78.5 Hyperlipidemia, unspecified; I25.2 Old myocardial infarction; Z87.891 Personal history of nicotine dependence; E66.01 Morbid (severe) obesity due to excess calories; Z95.1 Presence of aortocoronary bypass graft; Z79.899 Other long term (current) drug therapy; Z79.82 Long term (current) use of aspirin; Z79.4 Long term (current) use of insulin; Z82.49 Family history of ischemic heart disease and other diseases of the circulatory system; Z83.6 Family history of other diseases of the respiratory system

== ENCOUNTER 2016-09-20 07:16 | Day surgery (SDC) | payer OTHER ==
[2016-08-31 08:32] VITALS: BMI 33.0
[2016-08-31 09:04] VITALS: O2SAT 94
[2016-09-20] VITALS (16 sets, daily range): BP systolic 95–133; BP diastolic 45–73; PULSE 68–83; TEMP 36.4–36.7; O2SAT 93–100
--- NOTE | 2016-09-20 06:58 | History and Physical ---
History & Physical Date Sep 20, 2016. Chief Complaint 70-year-old gentleman here for bronchoscopic secondary for chronic bronchiectasis Patient is being evaluated because of progressive dyspnea on exertion and inability to clear his mucus secretions. He has very severe COPD with an FEV1 of 27 % predicted based off ATS standards. CT scan also shows left lower lobe loculated effusion as well as possible tracheal polyps seen on CT angiogram from 07/26/2016, personally reviewed. At this time we proceed forward with bronchoscopy and bronchial alveolar lavage. On the day his arrival to the hospital will also evaluate with thoracic ultrasonography and possible thoracentesis. This spoken to the patient is at length about the indications for both procedures and they agree. History of Present Illness The patient is a 71 year old male with complaints of chronic bronchiectasis with acute flair Patient is being evaluated because of progressive dyspnea on exertion and inability to clear his mucus secretions. He has very severe COPD with an FEV1 of 27 % predicted based off ATS standards. CT scan also shows left lower lobe loculated effusion as well as possible tracheal polyps seen on CT angiogram from 07/26/2016, personally reviewed. At this time we proceed forward with bronchoscopy and bronchial alveolar lavage. On the day his arrival to the hospital will also evaluate with thoracic ultrasonography and possible thoracentesis. This spoken to the patient is at length about the indications for both procedures and they agree. Past Medical/Surgical History Medical Problems: (1) Abdominal pain (2) JOAN (acute kidney injury) (3) Benign hypertension (4) Benign prostatic hyperplasia (5) Chest tightness (6) Chronic obstructive pulmonary disease (7) CKD (chronic kidney disease), stage IV (8) Congestive heart failure (9) Coronary artery disease (10) Diabetes mellitus type 2 (11) History of renal calculi (12) Hyperlipidemia (13) Morbid obesity (14) SOB (shortness of breath) Surgical Problems: (1) Status post coronary artery bypass grafting (2) Status post hip replacement Additional History Hepatic Disease: No Endocrine Disorder: Yes Kidney Disease: Yes Hypertension: Yes Heart Disease: Yes Bleeding Tendencies: No Infectious Diseases: Yes (enterococcus of the urine ) Allergies Coded Allergies: Prednisone (Verified Adverse Reaction, Intermediate, 'shakiness', 09/12/16) Home Medications Scheduled Albuterol Sulf (Proventil 0.083% 2.5MG/3ML), 2.5 MG INH QID Allopurinol (Zyloprim), 1.5 TAB PO QAM Aspirin (Aspirin Ec), 81 MG PO QAM Atorvastatin (Lipitor), 40 MG PO DAILY Calcitriol (Rocaltrol Cap), 0.25 MCG PO 3XWK Cholecalciferol (Vitamin D3), 2,000 UNITS PO BID Finasteride (Proscar), 5 MG PO QAM Furosemide (Furosemide), 80 MG PO BID Insulin Aspart (Novolog Flexpen), SQ TID Insulin Glargine (Lantus Solostar), 40 UNITS SQ QPM Linaclotide (Linzess), 1 CAP PO DAILY Metolazone (Metolazone), 5 MG PO DAILY Metoprolol Succ (Toprol Xl) (Toprol-Xl), 50 MG PO QAM Oxygen (Oxygen), 2 LITERS NA HS Potassium Ext Rel (Klor-Con), 30 MEQ PO BID Probiotic Product ([employer]), 1 CAP PO QAM Spironolactone (Aldactone), 12.5 MG PO QAM Scheduled PRN Colchicine (Colchicine), 1 TAB PO DAILY PRN for gout Docusate Sodium (Colace), 100 MG PO BID PRN for Constipation Ipratropium [place] (Ipratropium [place]), 1 VIAL NEB QID PRN for Shortness of Breath Polyethylene Glycol 3350 (Miralax), 255 GM PO DAILY PRN for Constipation Sennosides-Docusate Sodium (Senokot S), 1 TAB PO QAM PRN for Constipation Tramadol (Ultram), 50 MG PO Q6H PRN for Pain Physical Examination Skin: warm/dry, no rash Eyes: normal inspection, EOMI, sclerae normal ENT: normal ENT inspection, pharynx normal Head: normocephalic, atraumatic Neck: supple, no adenopathy, trachea midline Respiratory/Chest: lungs clear, normal breath sounds, no respiratory distress Cardiovascular: regular rate, rhythm, no edema, no murmur Abdomen / GI: normal bowel sounds, non tender Back: normal inspection Extremities: normal inspection, normal range of motion Neurologic/Psych: no motor/sensory deficits, alert, normal reflexes, oriented x 3 Diagnosis Chronic bronchiectasis with acute flair ASA Classification: ASA Class III Plan of Treatment Bronchoscopy with BAL and removal of impacted secretions
[~2016-09-20 07:16] MED LIST changes: +COLCPOW6 PO; +DOCU-94 PO; +LINA1CAP PO; +LPT/40 PO; +LSX80 PO; +POLY335019 PO; -SIMV20TA2 PO; +ZRX25 PO
[2016-09-20] MEDS ORDERED: MIDAZOLAM HCL 5 MG/ML 1 ML VIAL IV ONE ×2 (07:17→10:00)
[2016-09-20] MEDS ORDERED: LIDOCAINE 4% INH SOLN 4 ML BTL ONE (07:17)
[2016-09-20] MEDS ORDERED: FENTANYL CITRATE INJ 50 MCG/1 ML 2 ML VIAL IV ONE ×2 (07:17→10:00)
[2016-09-20] MEDS ORDERED: LIDOCAINE HCL 2% LOCAL 50ML VIAL INFIL ONE (07:17)
--- NOTE | 2016-09-20 08:25 | History & Physical Bridge Note ---
H&P Re-Evaluation Bridge Note: I have examined the patient, reviewed the History & Physical and in the interval since the performance of the History & Physical I have noted the following changes of clinical significance: No changes noted
--- NOTE | 2016-09-20 08:26 | Procedure Note ---
Pre-Mod Sedation Assessment General Date of Moderate Sedation: Sep 20, 2016. Review Cardiovascular: regular rate, rhythm, no edema, no gallop, no JVD, no murmur Abdomen: normal bowel sounds, non tender, soft, no organomegaly, no pulsatile mass Lungs: chest non-tender, + pertinent finding (decreased BS on the left lou- thorax ) Airway Class: II Pre-Sedation Airway Assessment Oral Cavity: Dentures Able to Visualize Vocal Cords: Yes Short Thick Neck: Yes Hx of Sleep Apnea: No Smoking Status: Former Smoker Mallampati Classification: Class III ASA Classification: Class II Procedure Planning Contraindications-for Mod Sed: None Yes Notes The planned sedation has been discussed with the patient and consent obtained. I have identified the patient, determined the appropriateness of sedation and have assessed the patient immediately prior to the procedure. All medicine(s) and interventions are by my order.
[2016-09-20] MEDS ORDERED: NURSING VERBAL MED ORDER ONE (09:30)
--- NOTE | 2016-09-20 09:41 | Procedure Note ---
Post-Moderate Sedation Plan General Date of Moderate Sedation Sep 20, 2016. Vital Signs: Vital Signs Past 12 Hours Date Time Temp Pulse Resp B/P Pulse Ox O2 Delivery O2 Flow Rate FiO2 09/20/16 09:30 77 16 105/68 93 Nasal Cannula 4.0 Mask 09/20/16 09:25 75 14 105/64 97 Mask 8.0 09/20/16 09:20 76 16 121/66 98 Mask 8.0 09/20/16 09:15 76 20 133/71 99 Mask 8.0 09/20/16 09:10 75 20 132/63 99 Mask 8.0 09/20/16 09:05 80 18 129/73 100 Mask 8.0 09/20/16 09:00 78 18 113/63 100 Mask 8.0 09/20/16 08:53 18 124/72 100 Mask 8.0 09/20/16 08:14 36.7 83 20 113/61 96 Room Air Review - Discharge Plan Post Moderate Sedation Plan: On clinical assessment, the patient appears to have tolerated the conscious sedation without complications. Patient is recovering as anticipated. Patient will continue to be monitored by nursing and may be discharged when conscious sedation discharge criteria are met.
--- NOTE | 2016-09-20 09:47 | Bronchoscopy Procedure Note ---
Bronchoscopy Procedure Note Procedure: Bronchoscopy, conscious sedation, BAL LLL Consent: Obtained through the patient placed into the chart Preprocedural diagnosis: bronchiectasis Postprocedural diagnosis: posterior oral pharyngal and nasal insupated secretions Start time: 905 End time: 924 Total time: 19 min Analgesia: 2% liquid lidocaine: Via nebulizer 4% gel lidocaine: Via right naris 2% liquid lidocaine: Via bronchoscopy Sedation: Versed IV: 3 mg Fentanyl IV: 75 g Procedure: The Olympus video bronchoscope was used for this procedure and passed through the right naris Right naris: inferior turbinate polyp Posterior naris/posterior oropharynx: insupated secretions required forceps removal Glottis: Anatomically within normal limits Vocal cords: Proper abduction and abduction, anatomically within normal limits Subglottis/trachea/Hilda: Anatomically within normal limits, diffuse tracheal ring calcifications Right bronchial tree: Right mainstem bronchus: Anatomically within normal limits Right upper lobe: Anatomically within normal limits Bronchus intermedius: Anatomically within normal limits Right middle lobe: Anatomically within normal limits Right lower lobe: Anatomically within normal limits Findings: diffuse bronchial ring calcifications Left bronchial tree: Left mainstem bronchus: Anatomically within normal limits Left upper lobe: Anatomically within normal limits Lingula: Anatomically within normal limits Left lower lobe: LB7 with external compression with no signs of active disease Findings: diffuse bronchial ring calcifications Bronchial alveolar lavage: 60cc lavage of the LLL with 40cc returned Complications: None Follow-up: [facility] in one week
--- NOTE | 2016-09-20 09:52 | Discharge Instructions ---
Discharge Instructions Date of Service Sep 20, 2016. Admission Reason for Admission: COPD Discharge Discharge Diagnosis / Problem: upper airway insupated secretions Discharge Goals Goal(s): Decrease discomfort, Diagnostic testing Activity Recommendations Activity Limitations: resume your previous activity . Instructions / Follow-Up Instructions / Follow-Up Follow up in the [facility] Current Hospital Diet Patient's current hospital diet: Discharge Diet Recommended Diet: Regular Diet Procedures Procedures Performed: bronchoscopy with consious sedation, and bronchial lavage of the left lower lobe Pending Studies Studies pending at discharge: yes List of pending studies: bacterial, fungal and AFB analysis of the bronchial lavage Laboratory Results Hemoglobin A1c Test 09/03/16 07:14 Range/Units Estimated Average Glucose 148 mg/dl Hemoglobin A1c 6.8 H 4.5-5.6 % Medical Emergencies . Who to Call and When: Medical Emergencies: If at any time you feel your situation is an emergency, please call 911 immediately. . Non-Emergent Contact Non-Emergency issues call your: Transition Advisor Call Non-Emergent contact if: temperature is above 101.5 . . "Provider Documentation" section prepared by Brent Garcia. . VTE Core Measure Inpt VTE Proph given/why not?: Other Anticoagulation, Treatment not indicated
[2016-10-12] MEDS ORDERED: INSDGI SC (09:31)
[2016-10-12] MEDS ORDERED: POTA20TA16 PO (09:31)
[2016-10-12] MEDS ORDERED: OMEP40CA41 PO (09:31)
[2016-11-11] MEDS ORDERED: PRED10TA PO (14:29)
== END 2016-09-20 11:55 | disposition home or self-care (01) ==
LOC: C.ACU 07:16
PROVIDERS: ATTEND Internal Medicine Critical Care Medicine
DX: J47.1 Bronchiectasis with (acute) exacerbation (principal); J44.9 Chronic obstructive pulmonary disease, unspecified; I25.10 Atherosclerotic heart disease of native coronary artery without angina pectoris; E78.5 Hyperlipidemia, unspecified; I13.0 Hypertensive heart and chronic kidney disease with heart failure and stage 1 through stage 4 chronic kidney disease, or unspecified chronic kidney disease; I50.9 Heart failure, unspecified; E66.01 Morbid (severe) obesity due to excess calories; E11.9 Type 2 diabetes mellitus without complications; N18.4 Chronic kidney disease, stage 4 (severe); N40.0 Benign prostatic hyperplasia without lower urinary tract symptoms; Z99.81 Dependence on supplemental oxygen; Z87.442 Personal history of urinary calculi; Z95.1 Presence of aortocoronary bypass graft; Z96.649 Presence of unspecified artificial hip joint

== ENCOUNTER → 2016-10-08 | Outpatient (CLI) | payer OTHER ==
[~2016-10-08] MED LIST changes: +INSDGI SC; +OMEP40CA41 PO; +PRED10TA PO; -SENN8.6T7 PO
--- NOTE | 2016-10-08 11:55 | DIAGNOSTIC IMAGING REPORT ---
MODIFIED BARIUM SWALLOW CLINICAL HISTORY: Dysphagia. COMPARISON STUDY: No previous studies for comparison. Fluoroscopy time: 1.8 minutes. FINDINGS: No aspiration was identified within liquids, nectar thick liquids, pudding or crackers with paste. Swallowing mechanism was intact. Note was made of suspected moderate esophageal dysmotility. IMPRESSION: 1. No tracheal aspiration. Intact swallowing mechanism. 2. Suspected moderate esophageal dysmotility. 3. Full recommendations by speech pathology to follow. Electronically signed by: Srinivasan Jacobs M.D. 10/08/2016 11:53 AM Dictated Date/Time: 10/08/2016 11:51 AM
--- NOTE | 2016-10-08 14:33 | SWALLOWING EVALUATION ---
HISTORY: This 71 year old man was referred for a video swallow study at [facility] in order to rule out aspiration and identify the safest consistencies for optimal oral intake. The patient is reporting that he has a globus sensation and increased mucous in his throat that he cannot clear. He has had multiple ED visits for this and requests that he be suctioned to clear it out. He also reports he has been to 2 different ENT's, both of which report no findings to be causing the patient's complaints. PMH is significant for: SOB, CHF, COPD, HTN, hyperlipidemia, DM2, obesity, CKD IV, JOAN, CABG. Current diet is regular. PROCEDURE: The patient was seen in the Radiology Department of [facility] for the VFSS. Cursory examination of the oral cavity revealed upper and lower dentures of adequate fit. Movement of the articulators was wnl. The patient was seated upright on a stool and was viewed in both the Anterior-Posterior (A-P) and Lateral planes. Volitional phonation exercises completed in the A-P plane revealed bilateral vocal fold movement and vocal intensity was judged to be low. In the lateral plane, the patient was given the following boluses: 1 tsp. thin liquid barium x 2, single swallow thin liquid barium self-presented from a cup, serial swallows of thin liquid barium self-presented via straw, 1 tsp. nectar-thick liquid barium, single swallow nectar-thick liquid barium self-presented from a cup, 1 tsp. barium pudding, and 1 club cracker with barium paste. The patient was then repositioned into the A-P plane and given the following boluses: 1 tsp. nectar-thick liquid barium and 1 tsp. barium pudding. RESULTS: Oral Stage: Lip closure was adequate as there was no anterior loss. The patient was able to maintain a cohesive liquid bolus upon command without lateral or posterior escape. Mastication was slow, as was lingual motion for bolus transport. There was trace retention lining the tongue and palate after the swallow. The initiation of the pharyngeal swallow was delayed, and triggered when the bolus head reached the valleculae. Pharyngeal Stage: Soft palate elevation was complete. Laryngeal elevation revealed complete superior movement of the thyroid cartilage with complete approximation of the arytenoids to the epiglottic base. Anterior hyoid excursion and epiglottic deflection was also complete. Laryngeal vestibular closure was complete. The pharyngeal stripping wave was present and complete. Pharyngeal contraction was also complete. The opening to the pharyngoesophageal segment (PES) was partially reduced, with partial distention and duration of the opening. Tongue base retraction was reduced, with a trace column of contrast being located between the tongue base and pharyngeal wall during the swallow. There was trace retention located in the valleculae and pyriforms after the swallow. There was no evidence of aspiration during this study. There were only trace amounts of retention in the pharynx after the swallow was complete as well. Pharyngeal stage of the swallow was essentially wnl. Esophageal stage: There was mid-distal esophageal retention with retrograde flow below the PES. A liquid wash assisted to clear some of this retention but not fully. These findings are suggestive of esophageal dysfunction (dysmotility and reflux) SUMMARY/RECOMMENDATIONS: This patient presents normal franky-pharyngeal swallowing mechanics. He presents with s/s of esophageal dysfunction. The following is recommended: 1. Regular diet, thin liquids. Avoid foods that are dry, pasty, or thick (slippery diet). 2. GERD precautions. Fully upright for all p.o. intake and for 30-60 minutes after meals. HOB elevated to 30 degrees at all times to include while asleep. 3. Safe swallow strategies: Alternate solids and liquids. Rest breaks. Small frequent meals as needed. 4. Follow up with GI due to esophageal dysfunction. Patient reports that he has an appointment for endoscopy within the next month. Modify reflux medications as needed/appropriate. A summary of the results and recommendations was discussed with the patient immediately following the study with verbal understanding. Despite this education he continued to be concerned about his increased mucous production. He currently takes reflux medications to manage his symptoms and he was encouraged to continue taking these as ordered and that they may need to be adjusted per GI or PCP. Thank you for referral of this patient. Please contact me at if any additional information is needed.
== END | disposition home or self-care (01) ==
LOC: C.RAD 10:39
PROVIDERS: ATTEND Family Medicine
DX: R13.11 Dysphagia, oral phase (principal); R68.89 Other general symptoms and signs; E11.9 Type 2 diabetes mellitus without complications; I12.9 Hypertensive chronic kidney disease with stage 1 through stage 4 chronic kidney disease, or unspecified chronic kidney disease; N18.4 Chronic kidney disease, stage 4 (severe)

== ENCOUNTER → 2016-10-13 | Day surgery (SDC) | payer OTHER ==
[2016-10-12 09:32] VITALS: BMI 32.0
[~2016-10-13] VITALS: Ht 175.3 cm; Wt 100.5 kg
[~2016-10-13] MED LIST changes: -INSDGIPEN SQ; +LIDOCAINE HCL 2% 2 ML VIAL (20MG/ML) ONE; -LINA1CAP PO; +PROPOFOL IV EMULSION 10 MG/ML 20 ML VIAL IV ONE; +SODIUM CHLORIDE 0.9% 500ML 500 ML IV ONE
[2016-10-13 10:48] VITALS: Ht 175.3 cm; Wt 100.5 kg
--- NOTE | 2016-10-13 11:12 | Endo History and Physical ---
History & Physical Date of Service: October 13, 2016. Chief Complaint: DYSPHAGIA Referring Physician: DR. COTE History of Present Illness Dysphagia/globus. Past Medical History Diabetes, Angioplasty/Stent, Arthritis, Male Genitourinary Prob., High Cholesterol, CABG, CHF, Hypertension, COPD, Kidney Disease, [place] Past Surgical History Hx Cardiac Surgery: Yes (CABG-5 VESSELS, HEART CATH-2 STENTS) Hx Internal Defibrillator: No Hx Pacemaker: No Hx Abdominal Surgery: No Hx Post-Op Nausea and Vomiting: No Hx Cancer Surgery: No Hx Thoracic Surgery: Yes (BRONCHOSCOPY) Hx Orthopedic: Yes (RTH JHONATAN, RT HIP REVISION X 3) Hx Urinary Tract Surgery: Yes (TURP, LITHOTRIPSY) Family History None Social History Smoking Status: Former Smoker Hx Substance Use: No Hx Alcohol Use: No Allergies Coded Allergies: Prednisone (Verified Allergy, Unknown, ITCHING, 10/13/16) Current Medications Reported Home Medications Medications Dose Route/Sig Max Daily Dose Days Date Category Dose Instructions Prilosec (Omeprazole) 40 Mg Cap 40 Mg PO QAM 10/12/16 Reported Klor-Con (Potassium Chloride) 20 Meq Tabcr 20 Meq PO BID 10/12/16 Reported Lantus (Insulin Glargine) 100 Unit/Ml Inj 1 Dose SC QPM 10/12/16 Reported TAKES PRESCRIBED DOSE PER BSG VALUE Miralax (Polyethylene Glycol 3350) 1 Pow Pow 255 Gm PO DAILY PRN 09/13/16 Reported Colace (Docusate Sodium) 100 Mg Cap 100 Mg PO BID PRN 09/13/16 Reported Colchicine 1 Pow Pow 1 Tab PO DAILY PRN 09/13/16 Reported Furosemide 80 Mg Tab 1 Dose PO BID 09/13/16 Reported TAKES 80MG IN AM TAKES 40MG IN AFTERNOON Metolazone 2.5 Mg Tab 5 Mg PO DAILY 09/13/16 Reported one half hr before furosemid as needed Lipitor (Atorvastatin) 40 Mg Tab 40 Mg PO HS 09/13/16 Reported Proventil 0.083% 2.5MG/3ML (Albuterol Sulf) 2.5 Mg/3 Ml Nebu 2.5 Mg INH QID 08/15/16 Reported Vitamin D3 (Cholecalciferol) 2,000 Unit Tab 2,000 Units PO BID 08/15/16 Reported Rocaltrol Cap (Calcitriol) 0.25 Mcg Cap 0.25 Mcg PO 3XWK 2/27/17 Reported MON,WED,FRI Oxygen Gas 2 Liters NA HS 07/09/15 Reported Aldactone (Spironolactone) 25 Mg Tab 12.5 Mg PO QAM 07/09/15 Reported Zyloprim (Allopurinol) 300 Mg Tab 1.5 Tab PO QAM 07/09/15 Reported Toprol-Xl (Metoprolol Succinate) 50 Mg Tabcr 50 Mg PO QAM 01/30/15 Reported Ipratropium [place] 0.5 Mg/2.5 Ml Nebu 1 Vial NEB QID PRN 30 01/30/15 Reported mix with albuterol ud Aspirin Ec (Aspirin) 81 Mg Tab 81 Mg PO QAM 08/20/14 Reported Proscar (Finasteride) 5 Mg Tab 5 Mg PO QAM 07/06/14 Reported MENA PRESTIGE (Probiotic Product) 1 Cap Cap 1 Cap PO QAM 07/06/14 Reported Ultram (Tramadol HCl) 50 Mg Tab 50 Mg PO Q6H PRN 07/06/14 Reported Novolog Flexpen (Insulin Aspart) 100 Units/Ml Inj SQ TID 07/06/14 Reported PER SLIDING SCALE Vital Signs Weight (Kilograms): 100.45 Height (Feet): 5 Height (Inches): 9 Physical Exam General Appearance: WD/WN, no apparent distress Respiratory/Chest: Auscultation: breath sounds normal, no wheezing Cardiovascular: Heart Auscultation: RRR, no murmurs Abdomen: Inspection & Palpation: soft, no tenderness, guarding & rebound Assessment and Plan EGD
--- NOTE | 2016-10-13 11:47 | GI REPORT ---
Procedure Date: 10/13/2016 11:25 AM Procedure: Upper GI endoscopy Indications: Dysphagia, Globus sensation Medicines: Monitored Anesthesia Care Complications: No immediate complications. Estimated blood loss: None. Estimated Blood Loss: Estimated blood loss: none. Procedure: Pre-Anesthesia Assessment: - Prior to the procedure, a History and Physical was performed, and patient medications, allergies and sensitivities were reviewed. The patient's tolerance of previous anesthesia was reviewed. - ASA Grade Assessment: III - A patient with severe systemic disease. After obtaining informed consent, the endoscope was passed under direct vision. Throughout the procedure, the patient's blood pressure, pulse, and oxygen saturations were monitored continuously. The scope was introduced through the mouth, and advanced to the third part of duodenum. The upper GI endoscopy was accomplished with ease. The patient tolerated the procedure well. Findings: No endoscopic abnormality was evident in the esophagus to explain the patient's complaint of dysphagia. It was decided, however, to proceed with dilation of the entire esophagus. A guidewire was placed and the scope was withdrawn. Dilation was performed with an [place] dilator with no resistance at 48 Fr and 54 Fr. The Z-line was regular and was found 45 cm from the incisors. Biopsies were taken with a cold forceps for histology. The entire examined stomach was normal. Biopsies were taken with a cold forceps for Helicobacter pylori testing. The examined duodenum was normal. Verification of patient identification for the specimens was done by the physician and nurse using the patient's name, date and medical record number. Impression: - No endoscopic esophageal abnormality to explain patient's dysphagia. Esophagus dilated. Dilated. - Z-line regular, 45 cm from the incisors. Biopsied. - Normal stomach. Biopsied. - Normal examined duodenum. Recommendation: - Await pathology results. - Observe patient's clinical course. - Discharge patient to home (with escort). Alex Engel M.D. Alex Engel MD 10/13/2016 11:46:52 AM This report has been signed electronically. Note Initiated On: 10/13/2016 11:25 AM I attest to the content of the Intraoperative Record and orders documented therein, exceptions below
--- NOTE | 2016-10-13 11:48 | Discharge Instructions ---
Endoscopy Patient Instructions Date / Procedure(s) Performed October 13, 2016. EGD Allergy Information Coded Allergies: Prednisone (Verified Allergy, Unknown, ITCHING, 10/13/16) Discharge Date / Findings October 13, 2016. EGD performed, no stricture identified. Dilation performed to 18 mm. Biopsies obtained. Medication Instructions Restart Stopped Medication(s): Restart all medications today. Provider Instructions Activity Restrictions - No exercising or heavy lifting for 24 hours. - Do not drink alcohol the day of the procedure. - Do not drive a car or operate machinery until the day after the procedure. - Do not make any important decisions or sign important papers in 24 hours after the procedure. Following Day: - Return to full activity which may include returning to work/school. Diet Start your diet with liquids and light foods (jello, soup, juice, toast). Then eat your usual diet if not nauseated. Treatment For Common After Affects For mild abdominal pain, bloating, or excessive gas: - Rest - Eat lightly - Lie on right side Follow-Up Information Follow-up with DR. COTE as scheduled Anesthesia Information What You Should Know You have had a procedure that required some medicine to reduce anxiety and discomfort. This treatment is called moderate sedation. After receiving the treatment, you may be sleepy, but you will be able to breathe on your own. The effects of the treatment may last for several hours. Follow these instructions along with Activity/Diet recommendations noted above: * Do NOT do anything where dizziness or clumsiness would be dangerous. * Rest quietly at home today, then you can be up and about tomorrow. * Have a responsible person stay with you the rest of today. * You may have had an I.V. today. If so, you may take the dressing off later today. Recommendations Call your doctor if: * Trouble breathing * Continuous vomiting for more than 24 hours * Temperature above 101 degrees * Severe abdominal pain or bloating * Pain not relieved by pain medicine ordered * There is increased drainage or redness from any incision * A large amount of rectal bleeding greater than 2-3 tablespoons. (If you had a polyp/s removed or have hemorrhoids, a small amount of blood - from the rectum is to be expected.) * You have any unanswered questions or concerns. IN THE EVENT OF A SERIOUS EMERGENCY, GO TO THE NEAREST EMERGENCY ROOM Your discharge instructions were prepared by provider Alex Engel. Patient Instructions Signature Page Godwin Hidalgo Patient (or Guardian) Signature/Date: I have read and understand the instructions given to me by my caregivers. Caregiver/RN/Doctor Signature/Date: The above-named patient and/or guardian has received patient instructions on this date. + Original Patient Signature Page (only) stays with chart. Please make copy for patient.
--- NOTE | 2016-10-13 11:59 | Anesthesiology Progress Note ---
Anesthesia Post Op Note Date & Time October 13, 2016 at 11:59 Vital Signs Pain Intensity: 0 Vital Signs Past 12 Hours Date Time Temp Pulse Resp B/P Pulse Ox O2 Delivery O2 Flow Rate FiO2 10/13/16 11:49 86 20 115/57 96 Room Air 10/13/16 11:11 37.0 78 20 131/62 96 Room Air Notes Mental Status: alert / awake / arousable, participated in evaluation Pt Amnestic to Procedure: Yes Nausea / Vomiting: adequately controlled Pain: adequately controlled Airway Patency, RR, SpO2: stable & adequate BP & HR: stable & adequate Hydration State: stable & adequate Anesthetic Complications: no major complications apparent
[2016-10-13 12:24] VITALS: BP 144/69; PULSE 72; O2SAT 96
== END | disposition home or self-care (01) ==
LOC: C.GI 10:05
PROVIDERS: ATTEND Internal Medicine Gastroenterology
DX: R13.10 Dysphagia, unspecified (principal); F45.8 Other somatoform disorders; E10.9 Type 1 diabetes mellitus without complications; Z95.5 Presence of coronary angioplasty implant and graft; M19.90 Unspecified osteoarthritis, unspecified site; E78.00 Pure hypercholesterolemia, unspecified; I12.9 Hypertensive chronic kidney disease with stage 1 through stage 4 chronic kidney disease, or unspecified chronic kidney disease; I25.2 Old myocardial infarction; Z96.649 Presence of unspecified artificial hip joint; Z87.891 Personal history of nicotine dependence; J44.9 Chronic obstructive pulmonary disease, unspecified; E78.5 Hyperlipidemia, unspecified; K21.9 Gastro-esophageal reflux disease without esophagitis; N18.3 Chronic kidney disease, stage 3 (moderate); Z87.442 Personal history of urinary calculi; E66.9 Obesity, unspecified

== ENCOUNTER 2019-11-19 13:44 | Inpatient (IN) ==
--- NOTE | 2019-11-19 14:40 | Electrocardiogram Report ---
Test Reason : Blood Pressure : / mmHG Vent. Rate : 088 BPM Atrial Rate : 088 BPM P-R Int : 214 ms QRS Dur : 108 ms QT Int : 394 ms P-R-T Axes : 072 -21 059 degrees QTc Int : 476 ms Unusual P axis, possible ectopic atrial rhythm with Premature atrial complexes with Aberrant conducti on Low voltage QRS Borderline ECG When compared with ECG of 13-SEP-2016 06:44, Confirmed by Alex Howell ([id number]) on 11/19/2019 2:40:07 PM Referred By: ED Confirmed By:Alex Howell
[2019-11-19 14:48] LABS: Eosinophils # (auto) 0.01 K/uL (0-0.5); Eosinophils % (auto) 0.1 %; Hematocrit (blood only) 37.1 % (42-52); Immature Granulocytes # (auto) 0.02 K/uL (0.00-0.02); Immature Granulocytes % (auto) 0.2 %; Lymphocytes # (auto) 0.88 K/uL (1.2-3.4); Lymphocytes % (auto) 7.7 %; Mean Corpuscular Hemoglobin 31.4 pg (25-34); Mean Corpuscular Hgb Conc 32.3 g/dL (32-36); Mean Corpuscular Volume 97.1 fL (80-100); Monocytes # (auto) 0.78 K/uL (0.11-0.59); Monocytes % (auto) 6.9 %; Neutrophils # (auto) 9.68 K/uL (1.4-6.5); Neutrophils % (auto) 85.1 %; Platelet Count 190 K/uL (130-400); RDW Coefficient of Variation 15.1 % (11.5-14.5); RDW Standard Deviation 53.2 fL (36.4-46.3); Red Blood Count 3.82 M/uL (4.7-6.1); White Blood Count 11.37 K/uL (4.8-10.8)
--- NOTE | 2019-11-19 15:17 | Gastrointestinal Consultation ---
Date of Consultation November 19, 2019 Assessment & Plan (1) Colon distention: Pt is a 74 y/o male w chronic constipation, on narcotics, evaluated for colonic distension. Non contrasted CT abd/pelvis showed gaseous distension on transverse colon 12.6cm, transition zone at level of splenic flexure. Labs w mild leukocytosis, no anion gap. No abd pain, n/v on exam. - Keep NPO - Surgery consulted, pending evaluation. - NGT and rectal tube decompression - Will tenatively list pt in OR for colonic decompression +/- colonic stent placement tomorrow (plan to prep w fleets enema prior to colonoscopy proceure). If pt develops abd pain, tachycardia, hypotension, please call [facility] (Dr. Steven Allen) as pt may need urgent endoscopic intervention overnight. History of Present Illness Reason for Consultation: Abdominal distension Requesting Physician: Dr. Blayne Gregory Attending Physician: Dr. Magan Mina History of Present Illness Pt is a 74 y/o male w PMHx as noted below who was referred to ED from GI clinic today by Dr. Blaze Chou/FARHANA Hernandes for evaluation of abdominal distension. He recently had CT chest on 11/01 to eval lung nodule and that time noted to have colonic distension of about 12cm. Pt reports he's had a distended abd for a while, however in last few days noticed abd distension is worse. He has mild difficulty breathing due to the pressure on his diaphgram. He denies fever, chills, CP, SOB, n/v, abd pain. He takes Tramadol daily. He has hx of constipation, previously on Miralax but hasn't taken this for a while. Last BM very small liquid stool this AM. He is passing very little flatus. Last ate solid meal 10 am. Colonoscopy 2016 - adenomatous polyp Colonoscopy 08/2018 - poor prep CT abd/pelvis w/o contrast 11/19/2019: 1. Chronic left pleural effusion with associated pleural calcification 2. Pronounced gaseous distention of the transverse colon which measures 12.6 cm. There is a transition zone at the level of splenic flexure. While a discrete mass is not visualized on CT scanning, this does not exclude an obstructing lesion. 3. No evidence of acute diverticulitis. No evidence of acute appendicitis. 4. Nonobstructing left renal calculus Allergies Allergy/AdvReac Type Severity Reaction Status Date / Time No Known Allergies Allergy U Verified 11/19/19 15:52 Home Medications Home Medications Medication Instructions Recorded Confirmed Type Lantus U-100 Insulin 30 - 40 unit SUBCUT QPM 03/08/18 11/19/19 History albuterol sulfate 2.5 mg INHALATION QID PRN 03/08/18 11/19/19 History allopurinol 450 mg PO QAM 03/08/18 11/19/19 History aspirin [Aspirin Low Dose] 81 mg PO QAM 03/08/18 11/19/19 History atorvastatin 40 mg PO HS 03/08/18 11/19/19 History calcitriol 0.25 mcg PO QAM 03/08/18 11/19/19 History colchicine 0.6 mg PO DAILY PRN 03/08/18 11/19/19 History finasteride 5 mg PO QAM 03/08/18 11/19/19 History furosemide 80 mg PO BID 03/08/18 11/19/19 History insulin aspart U-100 [Novolog 1 dose SUBCUT TIDM 03/08/18 11/19/19 History Flexpen U-100 Insulin] ipratropium bromide 2.5 ml INHALATION QID PRN 03/08/18 11/19/19 History metoprolol succinate 50 mg PO QAM 03/08/18 11/19/19 History omeprazole 40 mg PO QAM 03/08/18 11/19/19 History ramipril 1.25 mg PO QAM 03/08/18 11/19/19 History spironolactone 25 - 37.5 mg PO QAM 03/08/18 11/19/19 History tramadol 50 mg PO Q6H PRN 03/08/18 11/19/19 History prednisone 10 mg PO QAM 11/19/19 11/19/19 History Patient History Medical History BPH (benign prostatic hyperplasia) CAD (coronary artery disease) Last cardiac cath 08/09/2011 and demonstrated severe [place] vessel disease and an occluded SVG to the OM2. All other grafts noted to be patent at that time. 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 MCKINNEY (STAGE 3-4) Chronic obstructive pulmonary disease Emphysema Congestive heart failure chronic combined systolic and diastolic EF 45% 2011 Depression H/O -- NO MEDS CURRENTLY Diabetes mellitus, type 2 IDDM Dyslipidemia GERD (gastroesophageal reflux disease) Gout History of colon polyps MRSA (methicillin resistant Staphylococcus aureus) Per infection control, 02/2018: "Patient has a history of MRSA in a wound and a nasal screen in 2014. Patient requires contact precautions." Myocardial Infarction 2005 - CABG X5 VESSELS. Subsequent caths with stenting 2005 and 2006. Obesity On home oxygen therapy 2LPM VIA N/C AT HS Sleep apnea O2 AT NIGHT Surgical History H/O lithotripsy x 2 History of bronchoscopy x2, last 02/2018--benign right lower lobe lesion History of cardiac cath 2006 PCI of LCx 2006 PCI of LAD 2011 severe [place] vessel dz and an occluded SVG to OM2 graft. All other grafts patent. History of colonoscopy History of coronary artery bypass graft X5 VESSELS AT [facility] 2004 History of esophagogastroduodenoscopy (EGD) History of total hip arthroplasty RIGHT HIP -- WITH MULTIPLE REVISIONS Family History Other No family history of adverse response to anesthesia Social History Preferred Language: Kyrgyz Communication Ability: Effective Clinical Secretary Required: No Beliefs That Will Affect Care: None Current Living Situation: Spouse Feels Safe at Home: Yes Smoking Status: Former smoker Tobacco Type: cigarettes ; Cigarettes Per Day: 60 ; Second Hand Exposure: Yes (parents smoked) ; Hx Alcohol Use: No Hx Substance Use: No Review of Systems Review of Systems: All systems reviewed & are unremarkable except as noted in HPI & below Physical Exam Constitutional: WD/WN, vitals as above well groomed, cooperative and comfortable Eyes: PERRL, conjunctivae normal, anicteric sclerae ENMT: external ear and nose normal, oropharynx normal Respiratory: normal respiratory effort, lungs clear to auscultation Cardiovascular: RRR, no murmur, no edema Gastrointestinal (Abdomen): Inspection/Auscultation: + abdomen distended (marked distension, tympanic; no bowel sounds) Skin: no jaundice lower legs bilaterally w erythema, wrapped. Psychiatric: A+Ox3, euthymic affect Lymphatic: no lymphedema Results & Data ([facility]) Vital Signs (Past 12 Hours) Vital Signs Temp Pulse Resp BP Pulse Ox 11/19/19 14:30 95 11/19/19 14:02 37 C 96 H 20 118/65 95
--- NOTE | 2019-11-19 15:24 | Emergency Department Note ---
Impression & Plan Colon distention ED Provider Note NAME: Godwin CARROLL AGE: 74 SEX: M ARRIVES VIA: Walk-In INFORMANT: [Patient] ED PROVIDER(S): Blayne Gregory MD CHIEF COMPLAINT: Abdominal distention PLAN: Disposition: Admitted Condition: [Good] MEDICAL DECISION MAKING: Patient presented with progressive abdominal distention. Blood work was performed and was unremarkable except for a slight leukocytosis. Subtle anemia noted. The patient had stable renal function on chemistry panel. CT imaging of the abdomen and pelvis was performed. This shows market dilation of the colon with a transition point at the splenic flexure. Consultation was made with [facility] gastroenterology, [facility] internal medicine, and general surgery Dr. Shane. All 3 teams evaluated the patient in the emergency department. General surgery asked for an NG tube to be placed and this was ordered. The patient will be admitted by internal medicine for specialty consultation and further management. The patient uses nebulizer treatments 4 times daily. He is requesting a nebulizer treatment as he is due. This was given. Triage Nursing notes reviewed and agree them. Vital Signs: reviewed and remarkable for [no significant abnormalities] Differential diagnosis: Functional constipation, impaction, obstruction, volvulus, metabolic abnormality, infection, neurologic, as well as other pathologies. ER treatment provided: NG tube DuoNeb Diagnostics interpreted by me: Cardiac Monitoring: Cardiac monitoring ordered by me: The patient was placed on continuous cardiac monitoring and observed. It revealed a normal sinus rhythm at 82 beats per minute without ectopy or evidence of dysrhythmia. Laboratory studies: [See below] mild leukocytosis and anemia on CBC. Chemistry panel shows renal sufficiency with but this is baseline. Imaging studies: CT scan shows market dilatation of the colon. I refer you to the EMR for furt her details. Consultation(s): [facility] gastroenterology. [facility] internal medicine General surgery, Dr. Shane HPI: The patient is a 74 year old male who presents to the Emergency Room with complaints of colonic distention. This started several weeks ago and is worsening. The patient also notes the following associated symptoms, abdominal distention and watery stools. The patient has found no relieving factors. Cur rent pain is rated as 0/10. Patient had a CT scan of his chest performed from pulmonology and he had severe colonic distention noted. He was referred to GI. He was seen today and referred to the ER due to severe abdominal distention and concerns about possible colonic obstruction. Pt denies LOC, headache, fevers, chills, diaphoresis, visual changes, neck pain, chest pain, breathing difficulties, nausea, vomiting, abdominal pain, back pain, melena, hematochezia, urinary symptoms, numbness, weakness, lymphadenopathy, rash, or other complaints. ROS: See above HPI for pertinent positives & negatives. A total of [10] systems reviewed and were otherwise negative. PAST MEDICAL HISTORY:[See Below] CAD PAST SURGICAL HISTORY:[See Below]CABG FAMILY HISTORY:[See Below] SOCIAL HISTORY:[See Below] HOME MEDICATIONS:[See Below] ALLERGIES:[See Below] VITALS:[See Below] PHYSICAL EXAMINATION: GENERAL: Awake, alert, well-appearing, in no distress HENT: Normocephalic, atraumatic. Oropharynx unremarkable. EYES: Normal conjunctiva. Sclera non-icteric. NECK: Inspection normal. Non-tender. Supple. No nuchal rigidity. FROM. No masses. RESPIRATORY: Clear to auscultation. No wheezes. No rales. Normal respiratory effort. CARDIAC: Normal rate. Normal rhythm. No murmurs. No rubs. Extremities warm and well perfused. Pulses equal. No JVD. GI: Soft, severely-distended. Tympanitic. No tenderness to palpation. No rebound or guarding. No masses. RECTAL: Deferred. MUSCULOSKELETAL: Atraumatic. Chest examination reveals no tenderness. The back is symmetrical on inspection without obvious abnormality. There is no CVA tenderness to palpation. No joint edema. LOWER EXTREMITIES: Calves are non-tender. 2+ edema. Chronic discoloration. Left leg slightly worse than the right. Patient states this is chronic due to his vein harvest from CABG. NEURO: Normal sensorium. No sensory or motor deficits noted. SKIN: No rash or jaundice noted. ED COURSE: [Critical Care:] [None] Blayne Gregory MD Past Med/Surg History Medical History BPH (benign prostatic hyperplasia) CAD (coronary artery disease) Last cardiac cath 08/09/2011 and demonstrated severe resighini vessel disease and an occluded SVG to the OM2. All other grafts noted to be patent at that time. Chronic cutaneous venous stasis ulcer b/l MELONIE Chronic kidney disease FOLLOWS WITH DR. MCKINNEY (STAGE 3-4) Chronic obstructive pulmonary disease Emphysema Congestive heart failure chronic combined systolic and diastolic EF 45% 2011 Depression H/O -- NO MEDS CURRENTLY Diabetes mellitus, type 2 IDDM Dyslipidemia GERD (gastroesophageal reflux disease) Gout History of colon polyps MRSA (methicillin resistant Staphylococcus aureus) Per infection control, 02/2018: "Patient has a history of MRSA in a wound and a nasal screen in 2014. Patient requires contact precautions." Myocardial Infarction 2005 - CABG X5 VESSELS. Subsequent caths with stenting 2005 and 2006. Obesity On home oxygen therapy 2LPM VIA N/C AT HS Sleep apnea O2 AT NIGHT Surgical History H/O lithotripsy x 2 History of bronchoscopy x2, last 02/2018--benign right lower lobe lesion History of cardiac cath 2006 PCI of LCx 2006 PCI of LAD 2012 severe resighini vessel dz and an occluded SVG to OM2 graft. All other gr afts patent. History of colonoscopy History of coronary artery bypass graft X5 VESSELS AT [facility] 2004 History of esophagogastroduodenoscopy (EGD) History of total hip arthroplasty RIGHT HIP -- WITH MULTIPLE REVISIONS Family History Other No family history of adverse response to anesthesia Social History Preferred Language: Bahamian Communication Ability: Effective Senior Net Engineer Required: No Beliefs That Will Affect Care: None Current Living Situation: Spouse Feels Safe at Home: Yes Smoking Status: Former smoker Tobacco Type: cigarettes ; Cigarettes Per Day: 60 ; Second Hand Exposure: Yes (parents smoked) ; Hx Alcohol Use: No Hx Substance Use: No Allergies Allergies Allergy/AdvReac Type Severity Reaction Status Date / Time No Known Allergies Allergy U Verified 11/19/19 15:52 Home Meds Home Medications Medication Instructions Recorded Confirmed Lantus U-100 Insulin 30 - 40 unit SUBCUT QPM 03/08/18 11/19/19 albuterol sulfate 2.5 mg INHALATION QID PRN 03/08/18 11/19/19 allopurinol 450 mg PO QAM 03/08/18 11/19/19 aspirin [Aspirin Low Dose] 81 mg PO QAM 03/08/18 11/19/19 atorvastatin 40 mg PO HS 03/08/18 11/19/19 calcitriol 0.25 mcg PO QAM 03/08/18 11/19/19 colchicine 0.6 mg PO DAILY PRN 03/08/18 11/19/19 finasteride 5 mg PO QAM 03/08/18 11/19/19 furosemide 80 mg PO BID 03/08/18 11/19/19 insulin aspart U-100 [Novolog 1 dose SUBCUT TIDM 03/08/18 11/19/19 Flexpen U-100 Insulin] ipratropium bromide 2.5 ml INHALATION QID PRN 03/08/18 11/19/19 metoprolol succinate 50 mg PO QAM 03/08/18 11/19/19 omeprazole 40 mg PO QAM 03/08/18 11/19/19 ramipril 1.25 mg PO QAM 03/08/18 11/19/19 spironolactone 25 - 37.5 mg PO QAM 03/08/18 11/19/19 tramadol 50 mg PO Q6H PRN 03/08/18 11/19/19 prednisone 10 mg PO QAM 11/19/19 11/19/19 Results & Data (ED) Vital Signs Vital Signs - 24 hr 11/19/19 14:02 11/19/19 14:30 11/19/19 15:22 Temperature 37 C Temperature Source Oral Pulse Rate 96 H Pulse Rate [Apical] 92 H Respiratory Rate 20 20 Respiratory Effort / Characteristics Non-Labored Spontaneous Non-Labored Spontaneous Respiratory Depth Normal Normal Respiratory Pattern Regular Blood Pressure 118/65 Blood Pressure [Left Arm] 129/67 Blood Pressure Mean 82 Blood Pressure Mean [Left Arm] 87 Pulse Oximetry 95 95 97 Oxygen Delivery Method Room Air Room Air Room Air Sepsis Recent Fever Within 48 Hours No Sepsis New/Unexplained Change in Mental Status No Sepsis Action Taken by Nursing No Action Required 11/19/19 15:50 11/19/19 16:54 Temperature Temperature Source Pulse Rate Pulse Rate [Apical] 90 85 Respiratory Rate 21 18 Respiratory Effort / Characteristics Non-Labored Spontaneous Respiratory Depth Respiratory Pattern Blood Pressure Blood Pressure [Left Arm] 118/63 Blood Pressure Mean Blood Pressure Mean [Left Arm] 81 Pulse Oximetry 96 94 Oxygen Delivery Method Room Air Room Air Sepsis Recent Fever Within 48 Hours Sepsis New/Unexplained Change in Mental Status Sepsis Action Taken by Nursing Laboratory Data Result diagrams: 11/19/19 14:29 11/19/19 14:29 Lab Results 11/19/19 11/19/19 11/19/19 Range/Units 14:29 14:29 15:25 WBC 11.37 H (4.8-10.8) K/uL RBC 3.82 L (4.7-6.1) M/uL Hgb 12.0 L (14.0-18.0) g/dL Hct 37.1 L (42-52) % MCV 97.1 (80-100) fL MCH 31.4 (25-34) pg MCHC 32.3 (32-36) g/dL RDW Std Deviation 53.2 H (36.4-46.3) fL RDW Coeff of Josiah 15.1 H (11.5-14.5) % Plt Count 190 (130-400) K/uL MPV 11.0 H (7.4-10.4) fL Immature Gran % (Auto) 0.2 % Neut % (Auto) 85.1 % Lymph % (Auto) 7.7 % Aiken % (Auto) 6.9 % Eos % (Auto) 0.1 % Baso % (Auto) 0.0 % Neut # (Auto) 9.68 H (1.4-6.5) K/uL Lymph # (Auto) 0.88 L (1.2-3.4) K/uL Aiken # (Auto) 0.78 H (0.11-0.59) K/uL Eos # (Auto) 0.01 (0-0.5) K/uL Baso # (Auto) 0.00 (0-0.2) K/uL Immature Gran # (Auto) 0.02 (0.00-0.02) K/uL Sodium 135 L (136-145) mmol/L Potassium 4.2 (3.5-5.1) mmol/L Chloride 100 (98-107) mmol/L Carbon Dioxide 27 (21-32) mmol/L Anion Gap 8.0 (3-11) BUN 59 H (7-18) mg/dl Creatinine 2.30 H (0.6-1.4) mg/dl Est Cr Clr Drug Dosing 33.4 ml/min Est GFR ( Amer) 31.0 Est GFR (Non-Af Amer) 26.8 BUN/Creatinine Ratio 25.5 H (10-20) Glucose 191 H (70-99) mg/dl Calcium 9.1 (8.5-10.1) mg/dl Total Bilirubin 0.3 (0.2-1) mg/dl AST 8 L (15-37) U/L ALT 22 (12-78) U/L Alkaline Phosphatase 116 (45-117) U/L Total Protein 7.2 (6.4-8.2) gm/dl Albumin 3.6 (3.4-5.0) gm/dl Globulin 3.6 (2.5-4.0) gm/dl Albumin/Globulin Ratio 1.0 (0.9-2) Lipase 58 L (73-393) U/L Urine Color Yellow Urine Appearance Clear (Clear) Urine pH 7.0 (4.5-7.5) Ur Specific [place] 1.010 (1.000-1.030) Urine Protein Negative (Negative) Urine Glucose (UA) Negative (Negative) Urine Ketones Negative (Negative) Urine Blood Negative (Negative) Urine Nitrite Negative (Negative) Urine Bilirubin Negative (Negative) Urine Urobilinogen Negative (Negative) Ur Leukocyte Esterase 2+ H (Negative) Urine WBC (Auto) 10-30 H (0-5) /hpf Urine RBC (Auto) 0-4 (0-4) /hpf U Hyaline Cast (Auto) 0 (0-5) /lpf U Epithel Cells (Auto) 10-20 H (0-5) /lpf Urine Bacteria (Auto) Negative (Negative) Administered Medications Discontinued Medications Albuterol (Duoneb) 3 ml NEB NOW STA Stop: 11/19/19 15:40 Last Admin: 11/19/19 15:50 Dose: 3 ml Documented by: [id number] Discharge Plan Visit Data Chief Complaint: Rectal Pain Stated Complaint: SENT BY COLON DISTENDED ED Provider: Blayne Gregory Discharge Problem: Colon distention Forms Stand Alone Forms: My [facility]ago Prescriptions Prescriptions: No Action budesonide-formoterol [Symbicort] 160-4.5 mcg/actuation HFA aerosol inhaler 2 puff inhalation BID RF: 0 atorvastatin 40 mg Tablet 40 mg PO HS RF: 0 Lantus U-100 Insulin 100 unit/mL Solution 30 - 40 unit SUBCUT QPM RF: 0 albuterol sulfate 2.5 mg /3 mL (0.083 %) Solution For Nebulization 2.5 mg INHALATION QID PRN (Reason: copd) RF: 0 metoprolol succinate 50 mg Tablet Extended Release 24 Hr 50 mg PO QAM RF: 0 omeprazole 40 mg Capsule,Delayed Release(Dr/Ec) 40 mg PO QAM RF: 0 aspirin [Aspirin Low Dose] 81 mg Tablet,Delayed Release (Dr/Ec) 81 mg PO QAM RF: 0 tramadol 50 mg Tablet 50 mg PO Q6H PRN (Reason: Pain) RF: 0 spironolactone 25 mg Tablet 25 - 37.5 mg PO QAM RF: 0 furosemide 80 mg Tablet 80 mg PO BID RF: 0 allopurinol 300 mg Tablet 450 mg PO QAM RF: 0 calcitriol 0.25 mcg Capsule 0.25 mcg PO QAM RF: 0 finasteride 5 mg Tablet 5 mg PO QAM RF: 0 ramipril 1.25 mg Capsule 1.25 mg PO QAM RF: 0 ipratropium bromide 0.02 % Solution 2.5 ml INHALATION QID PRN (Reason: Wheezing) RF: 0 insulin aspart U-100 [Novolog Flexpen U-100 Insulin] 100 unit/mL Insulin Pen 1 dose SUBCUT TIDM RF: 0 colchicine 0.6 mg Capsule 0.6 mg PO DAILY PRN (Reason: GOUT FLARE UP) RF: 0 prednisone 10 mg tablet 10 mg PO QAM RF: 0
[2019-11-19 15:26] LABS: Albumin Level 3.6 gm/dl (3.4-5.0); BUN Creatinine Ratio 25.5 (10-20); Calcium 9.1 mg/dl (8.5-10.1); Creatinine Clr Calc Pharmacy 33.4 ml/min; Est GFR (Non-African American) 26.8; Potassium 4.2 mmol/L (3.5-5.1)
[2019-11-19 15:28] LABS: Bilirubin,Total 0.3 mg/dl (0.2-1); Globulin 3.6 gm/dl (2.5-4.0); Total Protein 7.2 gm/dl (6.4-8.2)
--- NOTE | 2019-11-19 15:29 | CT Scan Report ---
CT SCAN OF THE ABDOMEN AND PELVIS WITHOUT CONTRAST CLINICAL HISTORY: severe abd distension, ? Colonic obstruction COMPARISON STUDY: 09/02/2016 TECHNIQUE: CT scan of the abdomen and pelvis was performed from the lung bases to the proximal femurs . Images are reviewed in the axial, sagittal, and coronal planes. IV contrast was not administered fo r this examination. A dose lowering technique was utilized adhering to the principles of ALARA. CT DOSE: 1182.42 mGycm FINDINGS: Lower chest: There is a persistent loculated left pleural fluid collection with associated pleural ca lcifications. Liver: The unenhanced liver is normal in size, contour, and attenuation. There is no intrahepatic deepthi iary ductal dilatation. Gallbladder: Cholelithiasis Spleen: Normal in size and attenuation. Pancreas: Unremarkable. Adrenal glands: Unremarkable. Kidneys: There is a 9 mm left renal calculus similar to the prior study. There is no hydronephrosis. Bowel: There is moderate right colonic stool. There is pronounced gaseous distention of the transvers e colon which measures 12.6 cm in diameter. There is a transition zone at the level of the splenic fl exure. A discrete mass is not visualized on CT scanning but given the transition zone, a mass cannot be excluded. There are no findings to indicate acute diverticulitis. There are no findings to indicat e acute appendicitis. Peritoneum: There is no intraperitoneal free air or abdominal ascites. Vasculature: The abdominal aorta is normal in course and caliber. Adenopathy: None. Pelvic viscera: There are prostatic calcifications. The bladder is mildly distended Skeletal structures: There are postsurgical changes of a total right hip arthroplasty IMPRESSION: 1. Chronic left pleural effusion with associated pleural calcification 2. Pronounced gaseous distention of the transverse colon which measures 12.6 cm. There is a transitio n zone at the level of splenic flexure. While a discrete mass is not visualized on CT scanning, this does not exclude an obstructing lesion. 3. No evidence of acute diverticulitis. No evidence of acute appendicitis. 4. Nonobstructing left renal calculus ACT 112: Negative or not required by law. Electronically signed by: Gopi Ramos M.D. 11/19/2019 3:28 PM
[2019-11-19] MEDS ORDERED: ALBUT/IPRATROP 3MG/0.5MG NEB 3 ML VIAL NEB STA (15:39)
[2019-11-19 15:44] LABS: Appearance Urine Clear (Clear); Bacteria Urine Automated Negative (Negative); Bilirubin Urine Negative (Negative); Blood Urine Negative (Negative); Cast Urine Automated 0 /lpf (0-5); Color Urine Yellow; Glucose Urine UA Negative (Negative); Ketones Urine Negative (Negative); Leukocyte Esterase Urine 2+ (Negative); Nitrite Urine Negative (Negative); Protein Urine Negative (Negative); RBC Urine Automated 0-4 /hpf (0-4); Urobilinogen Urine Negative (Negative)
--- NOTE | 2019-11-19 16:07 | Surgery Consultation ---
Date of Consultation November 19, 2019 Assessment & Plan (1) Colon distention: pt is a 74 year-old male who presents to Er with abdominal distend, IMP: colon distend, by mass or volvulus? Plan, no emergent surgery indication now, I recommend GI consult for colonoscopy diagnosis or treatment, Hospitalist admit pt to hospital, NPO, NG tube, iv fluid, repeat labs in am, will F/U History of Present Illness History of Present Illness CC: abdominal distend HPI: The patient is a 74 year old male who presents to the Emergency Room with complaints of colonic distention. This started several weeks ago and is worsening. The patient also notes the following associated symptoms, abdominal distention and watery stools. The patient has found no relieving factors. Current pain is rated as 0/10. Patient had a CT scan of his chest performed from pulmonology and he had severe colonic distention noted. He was referred to GI. He was seen today and referred to the ER due to severe abdominal distention and concerns about possible colonic obstruction. Pt denies LOC, headache, fevers, chills, diaphoresis, visual changes, neck pain, chest pain, breathing difficulties, nausea, vomiting, abdominal pain, back pain, melena, hematochezia, urinary symptoms, numbness, weakness, lymphadenopathy, rash, or other complaints. I ( Usha Shane MD ) got a call for consult colon distend, I reviewed pt's H/P, Lab, CT scan with pt, ROS: See above HPI for pertinent positives & negatives. A total of [10] systems reviewed and were otherwise negative. PAST MEDICAL HISTORY: [See Below] CAD PAST SURGICAL HISTORY: [See Below] CABG FAMILY HISTORY: [See Below] SOCIAL HISTORY: [See Below] HOME MEDICATIONS: [See Below] ALLERGIES: [See Below] Allergies Allergy/AdvReac Type Severity Reaction Status Date / Time No Known Allergies Allergy U Verified 11/19/19 15:52 Home Medications Home Medications Medication Instructions Recorded Confirmed Type Lantus U-100 Insulin 30 - 40 unit SUBCUT QPM 03/08/18 11/13/19 History Novolog Flexpen U-100 Insulin 1 dose SUBCUT TIDM 03/08/18 11/13/19 History albuterol sulfate 2.5 mg INHALATION QID 03/08/18 11/13/19 History allopurinol 450 mg PO QAM 03/08/18 11/13/19 History aspirin [Aspirin Low Dose] 81 mg PO QAM 03/08/18 11/13/19 History atorvastatin 40 mg PO HS 03/08/18 11/13/19 History calcitriol 0.25 mcg PO QAM 03/08/18 11/13/19 History colchicine 0.6 mg PO DAILY PRN 03/08/18 11/13/19 History finasteride 5 mg PO QAM 03/08/18 11/13/19 History furosemide 80 mg PO BID 03/08/18 11/13/19 History ipratropium bromide 2.5 ml INHALATION QID 03/08/18 11/13/19 History metoprolol succinate 50 mg PO QAM 03/08/18 11/13/19 History omeprazole 40 mg PO QAM 03/08/18 11/13/19 History ramipril 1.25 mg PO QAM 03/08/18 11/13/19 History spironolactone 25 - 37.5 mg PO QAM 03/08/18 11/13/19 History tramadol 50 mg PO Q6H PRN 03/08/18 11/13/19 History prednisone 10 mg PO QAM 11/19/19 11/19/19 History Patient History Medical History BPH (benign prostatic hyperplasia) CAD (coronary artery disease) Last cardiac cath 08/09/2011 and demonstrated severe redding vessel disease and an occluded SVG to the OM2. All other grafts noted to be patent at that time. 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 MCKINNEY (STAGE 3-4) Chronic obstructive pulmonary disease Emphysema Congestive heart failure chronic combined systolic and diastolic EF 45% 2011 Depression H/O -- NO MEDS CURRENTLY Diabetes mellitus, type 2 IDDM Dyslipidemia GERD (gastroesophageal reflux disease) Gout History of colon polyps MRSA (methicillin resistant Staphylococcus aureus) Per infection control, 02/2018: "Patient has a history of MRSA in a wound and a nasal screen in 2014. Patient requires contact precautions." Myocardial Infarction 2004 - CABG X5 VESSELS. Subsequent caths with stenting 2005 and 2006. Obesity On home oxygen therapy 2LPM VIA N/C AT HS Sleep apnea O2 AT NIGHT Surgical History H/O lithotripsy x 2 History of bronchoscopy x2, last 02/2018--benign right lower lobe lesion History of cardiac cath 2006 PCI of LCx 2007 PCI of LAD 2012 severe redding vessel dz and an occluded SVG to OM2 graft. All other grafts patent. History of colonoscopy History of coronary artery bypass graft X5 VESSELS AT [facility] 2004 History of esophagogastroduodenoscopy (EGD) History of total hip arthroplasty RIGHT HIP -- WITH MULTIPLE REVISIONS Family History Other No family history of adverse response to anesthesia Social History Preferred Language: Korean Communication Ability: Effective Hose Inspector Required: No Beliefs That Will Affect Care: None Current Living Situation: Spouse Feels Safe at Home: Yes Smoking Status: Former smoker Tobacco Type: cigarettes ; Cigarettes Per Day: 60 ; Second Hand Exposure: Yes (parents smoked) ; Hx Alcohol Use: No Hx Substance Use: No Review of Systems Review of Systems: All systems reviewed & are unremarkable except as noted in HPI & below Constitutional: as per Subjective / HPI Eyes: as per Subjective / HPI Ear, Nose, Mouth, Throat: as per Subjective / HPI Respiratory: as per Subjective / HPI COPD Cardiovascular: as per Subjective / HPI Additional Comments: S/P CABG, NE, Gastrointestinal: as per Subjective / HPI SBO, diarrhea, abdominal pain, Genitourinary: + as per Subjective / HPI and + problem reported (JOAN, renal calculi) Musculoskeletal: as per Subjective / HPI Integumentary: as per Subjective / HPI Neurologic: as per Subjective / HPI Psychiatric: as per Subjective / HPI Endocrine: as per Subjective / HPI Hematologic / Lymphatic: as per Subjective / HPI Physical Exam Constitutional: WD/WN, vitals as above well developed and well nourished Eyes: PERRL, conjunctivae normal, anicteric sclerae ENMT: external ear and nose normal, oropharynx normal Neck: trachea midline, no thyromegaly trachea midline Respiratory: normal respiratory effort, lungs clear to auscultation normal respiratory effort Cardiovascular: RRR, no murmur, no edema Rate/Rhythm: regular rate and regular rhythm Heart Sounds: normal S1 and normal S2 Gastrointestinal (Abdomen): normal bowel sounds, soft, nontender, no hepatosplenomegaly Inspection/Auscultation: + abdomen distended no tenderness, distend abdomen, BS + Musculoskeletal: no cyanosis or clubbing, extremities motor strength 5/5 Skin: no rashes, warm and dry Neurologic: patellar DTR's 2+ bilat, sensation intact Psychiatric: Orientation: alert and oriented x 3 Results & Data Vital Signs (Past 12 Hours) Vital Signs Temp Pulse Pulse Resp BP BP Pulse Ox 11/19/19 15:50 90 21 96 11/19/19 15:22 92 H 20 129/67 97 11/19/19 14:30 95 11/19/19 14:02 37 C 96 H 20 118/65 95 Laboratory Results Abnormal lab results 11/19/19 11/19/19 Range/Units 14:29 14:29 WBC 11.37 H (4.8-10.8) K/uL RBC 3.82 L (4.7-6.1) M/uL Hgb 12.0 L (14.0-18.0) g/dL Hct 37.1 L (42-52) % RDW Std Deviation 53.2 H (36.4-46.3) fL RDW Coeff of Josiah 15.1 H (11.5-14.5) % MPV 11.0 H (7.4-10.4) fL Neut # (Auto) 9.68 H (1.4-6.5) K/uL Lymph # (Auto) 0.88 L (1.2-3.4) K/uL George # (Auto) 0.78 H (0.11-0.59) K/uL Sodium 135 L (136-145) mmol/L BUN 59 H (7-18) mg/dl Creatinine 2.30 H (0.6-1.4) mg/dl BUN/Creatinine Ratio 25.5 H (10-20) Glucose 191 H (70-99) mg/dl AST 8 L (15-37) U/L Lipase 58 L (73-393) U/L Diagnostic Findings CT SCAN OF THE ABDOMEN AND PELVIS WITHOUT CONTRAST CLINICAL HISTORY: severe abd distension, ? Colonic obstruction COMPARISON STUDY: 09/02/2016 TECHNIQUE: CT scan of the abdomen and pelvis was performed from the lung bases to the proximal femurs. Images are reviewed in the axial, sagittal, and coronal planes. IV contrast was not administered for this examination. A dose lowering technique was utilized adhering to the principles of ALARA. CT DOSE: 1182.42 mGycm FINDINGS: Lower chest: There is a persistent loculated left pleural fluid collection with associated pleural calcifications. Liver: The unenhanced liver is normal in size, contour, and attenuation. There is no intrahepatic biliary ductal dilatation. Gallbladder: Cholelithiasis Spleen: Normal in size and attenuation. Pancreas: Unremarkable. Adrenal glands: Unremarkable. Kidneys: There is a 9 mm left renal calculus similar to the prior study. There is no hydronephrosis. Bowel: There is moderate right colonic stool. There is pronounced gaseous distention of the transverse colon which measures 12.6 cm in diameter. There is a transition zone at the level of the splenic flexure. A discrete mass is not visualized on CT scanning but given the transition zone, a mass cannot be excluded. There are no findings to indicate acute diverticulitis. There are no findings to indicate acute appendicitis. Peritoneum: There is no intraperitoneal free air or abdominal ascites. Vasculature: The abdominal aorta is normal in course and caliber. Adenopathy: None. Pelvic viscera: There are prostatic calcifications. The bladder is mildly distended Skeletal structures: There are postsurgical changes of a total right hip arthroplasty IMPRESSION: 1. Chronic left pleural effusion with associated pleural calcification 2. Pronounced gaseous distention of the transverse colon which measures 12.6 cm. There is a transition zone at the level of splenic flexure. While a discrete mass is not visualized on CT scanning, this does not exclude an obstructing lesion. 3. No evidence of acute diverticulitis. No evidence of acute appendicitis. 4. Nonobstructing left renal calculus
--- NOTE | 2019-11-19 17:18 | History & Physical Report ---
Date of Service November 19, 2019 Assessment & Plan (1) Colon distention: Pt is 74 y/o M with PMH COPD, HTN, CAD s/p CABG x5 in 2004, s/p stent in 2015 2006, dyslipidemia, CKD IV, insulin-dependent DM II, gastroparesis, Anthony's esophagus presented to ER for abdominal distention. H/O chronic c onstipation with intermittent watery BMs and abdominal distention which has been increasing. Had outpatient CT scan showing colonic distention and was referred to ER for further evaluation. Pt denies abdominal pain, N/V, fever/chills, urinary symptoms. In ER pt afebrile, P: 96, RR: 20, BP 118/65, 95% on room air, WBC: 11 (patient on prednisone), Hgb: 12, no lipase or liver function elevation, UA: Likely contaminant CT abdomen pelvis: 1. Chronic left pleural effusion with associated pleural calcification 2. Pronounced gaseous distention of the transverse colon which measures 12.6 cm. There is a transition zone at the level of splenic flexure. While a discrete mass is not visualized on CT scanning, this does not exclude an obstructing lesion. 3. No evidence of acute diverticulitis. No evidence of acute appendicitis. 4. Nonobstructing left renal calculus -Admit med telemetry -N.p.o. -IVF -GI consult, saw patient in ER, recommend n.p.o,, NG tube, rectal tube. Plan for possible colonoscopy procedure tomorrow -GI noted that if patient develops abd pain, tachycardia, hypotension, please call injection molding process technician GI, as pt may need urgent endoscopic intervention overnight. -General surgery consult, saw patient in ER, recommended NG tube, no other surgical intervention at this time -Obtain KUB after NG tube placement -CBC, CMP in a.m. (2) CKD (chronic kidney disease), stage IV: Cr: 2.3. Baseline Cr: 2.2-2.4 -Monitor renal functions -Avoid nephrotoxic agents when possible (3) Diabetes mellitus, type 2: A1c: 6.8 on 08/29/2019 -Decrease patient's home Lantus as is n.p.o., NovoLog sliding scale per protocol (4) CAD (coronary artery disease): CAD s/p CABG x5 in 2004, s/p stent in 2005 & 2006 No chest pain -Hold aspirin, atorvastatin at this time -Convert oral metoprolol to IV (5) Chronic obstructive pulmonary disease: History of COPD. Wears 2 L oxygen at bedtime Last week treated for COPD exacerbation by pulmonology with Z-Freeman, 8-day prednisone taper. Patient on day 6 of prednisone taper and had 2 days of 10 mg daily remaining -Patient feels back at baseline breathing. Slight scattered wheezing noted in ER -In ER received albuterol neb -Duo nebs -continue home inhalers (6) HTN (hypertension): Stable -Converting metoprolol p.o. to IV -Hold ramipril (7) Pulmonary nodule, right: History pulmonary nodule, following with Dr. Lino with pulmonology. 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 Not surgical candidate (8) Diastolic CHF: Echo in 2017: EF: 55-60%, grade 1 diastolic dysfunction Does not appear fluid overloaded currently -Hold home diuretics and closely monitor volume status DVT Prophylaxis -SCDs Full Code as per discussion with pt Follows with Dr Hatch for routine care Pt was seen and care coordinated with Dr Hinojosa. See addendum History of Present Illness Chief Complaint: Abdominal distention Primary Care Provider: Neri Hatch MD Pt is 74 y/o M with PMH COPD, HTN, CAD s/p CABG x5 in 2004, s/p stent in 2005 & 2006, dyslipidemia, CKD IV, insulin-dependent DM II, gastroparesis, Anthony's esophagus presented to ER for abdominal distention. Patient reports chronic constipation with intermittent watery outflow and abdominal distention which has been increasing. Had outpatient CT scan showing colonic distention. Saw GI today and was referred to ER for further evaluation. Patient reports had small watery BM this morning. Denies any nausea, vomiting. Patient with history of COPD, follows with Dr. Lino. 11/13/2019 seen at pulmonology clinic and treated for COPD exacerbation with 8-day prednisone taper, Z-Freeman. Patient reports finished Z-Freeman and has 2 days remaining of prednisone. He feels like his breathing is at baseline currently. Also following with pulmonology for probable pulmonary malignancy, patient not surgical candidate per Dr. Lino. Reports no recent worsening extremity edema. Denies COVID exposure, recent travel, fever/chills, diaphoresis, MARQUIS, dizziness, syncope, vision changes, neck pain, CP, orthopnea, palpitations, cough, sore throat, choking, otalgia, rhinorrhea, paresthesias, weakness, extremity weakness, rashes, urinary symptoms. Allergies Allergy/AdvReac Type Severity Reaction Status Date / Time No Known Allergies Allergy U Verified 11/19/19 15:52 Home Medications Home Medications Medication Instructions Recorded Confirmed Type Lantus U-100 Insulin 30 - 40 unit SUBCUT QPM 03/08/18 11/19/19 History albuterol sulfate 2.5 mg INHALATION QID PRN 03/08/18 11/19/19 History allopurinol 450 mg PO QAM 03/08/18 11/19/19 History aspirin [Aspirin Low Dose] 81 mg PO QAM 03/08/18 11/19/19 History atorvastatin 40 mg PO HS 03/08/18 11/19/19 History calcitriol 0.25 mcg PO QAM 03/08/18 11/19/19 History colchicine 0.6 mg PO DAILY PRN 03/08/18 11/19/19 History finasteride 5 mg PO QAM 03/08/18 11/19/19 History furosemide 80 mg PO BID 03/08/18 11/19/19 History insulin aspart U-100 [Novolog 1 dose SUBCUT TIDM 03/08/18 11/19/19 History Flexpen U-100 Insulin] ipratropium bromide 2.5 ml INHALATION QID PRN 03/08/18 11/19/19 History metoprolol succinate 50 mg PO QAM 03/08/18 11/19/19 History omeprazole 40 mg PO QAM 03/08/18 11/19/19 History ramipril 1.25 mg PO QAM 03/08/18 11/19/19 History spironolactone 25 - 37.5 mg PO QAM 03/08/18 11/19/19 History tramadol 50 mg PO Q6H PRN 03/08/18 11/19/19 History prednisone 10 mg PO QAM 11/19/19 11/19/19 History Past Med/Surg History Medical History (Updated 11/19/19 @ 17:25 by Iman Cordero PA-C) BPH (benign prostatic hyperplasia) CAD (coronary artery disease) Last cardiac cath 08/09/2011 and demonstrated severe [place] and [place] vessel disease and an occluded SVG to the OM2. All other grafts noted to be patent at that time. 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 MCKINNEY (STAGE 3-4) Chronic obstructive pulmonary disease Emphysema Congestive heart failure chronic combined systolic and diastolic EF 45% 2011 Depression H/O -- NO MEDS CURRENTLY Diabetes mellitus, type 2 IDDM Diastolic CHF Dyslipidemia GERD (gastroesophageal reflux disease) Gout History of colon polyps HTN (hypertension) MRSA (methicillin resistant Staphylococcus aureus) Per infection control, 02/2018: "Patient has a history of MRSA in a wound and a nasal screen in 2014. Patient requires contact precautions." Myocardial Infarction 2005 - CABG X5 VESSELS. Subsequent caths with stenting 2005 and 2006. Obesity On home oxygen therapy 2LPM VIA N/C AT HS Sleep apnea O2 AT NIGHT Surgical History H/O lithotripsy x 2 History of bronchoscopy x2, last 02/2018--benign right lower lobe lesion History of cardiac cath 2006 PCI of LCx 2007 PCI of LAD 2012 severe [place] and [place] vessel dz and an occluded SVG to OM2 graft. All other grafts patent. History of colonoscopy History of coronary artery bypass graft X5 VESSELS AT [facility] 2004 History of esophagogastroduodenoscopy (EGD) History of total hip arthroplasty RIGHT HIP -- WITH MULTIPLE REVISIONS Family History Other No family history of adverse response to anesthesia Social History Preferred Language: Yoruba Communication Ability: Effective Clinical Team Lead Required: No Beliefs That Will Affect Care: None Current Living Situation: Spouse Feels Safe at Home: Yes Smoking Status: Former smoker Tobacco Type: cigarettes ; Cigarettes Per Day: 60 ; Second Hand Exposure: Yes (parents smoked) ; Hx Alcohol Use: No Hx Substance Use: No Review of Systems Review of Systems: All systems reviewed & are unremarkable except as noted in HPI & below Physical Exam Physical Exam: General: no distress, obese Head: normocephalic, atraumatic Eyes: PERRL, EOM's intact, conjunctiva non-injected, anicteric ENT: normal inspection external ears, nose, mucous membranes moist, +NG tube in place Neck: supple, trachea midline Lungs: no respiratory distress, slight scattered wheeze, no rhonchi/rales CV: RRR, no murmur, 1+ pretibial edema Abd: hypoactive BS, +severely distended, non-tender to palpation Ext: no calf tenderness, +venous stasis skin changes noted to bilateral lower extremities Neuro: A&O x 3, no focal deficits noted, normal affect Skin: warm, dry Results & Data Results & Data ([facility]) Vital Signs (Past 12 Hours) Vital Signs Temp Pulse Pulse Resp BP BP Pulse Ox 11/19/19 16:54 85 18 118/63 94 11/19/19 15:50 90 21 96 11/19/19 15:22 92 H 20 129/67 97 11/19/19 14:30 95 11/19/19 14:02 37 C 96 H 20 118/65 95 Laboratory Results Short CBC 11/19/19 Range/Units 14:29 WBC 11.37 H (4.8-10.8) K/uL Hgb 12.0 L (14.0-18.0) g/dL Hct 37.1 L (42-52) % Plt Count 190 (130-400) K/uL BMP 11/19/19 14:29 Sodium 135 L Potassium 4.2 Chloride 100 Carbon Dioxide 27 BUN 59 H Creatinine 2.30 H Glucose 191 H Calcium 9.1 Liver Function 11/19/19 Range/Units 14:29 Total Bilirubin 0.3 (0.2-1) mg/dl AST 8 L (15-37) U/L ALT 22 (12-78) U/L Alkaline Phosphatase 116 (45-117) U/L Albumin 3.6 (3.4-5.0) gm/dl Urine 11/19/19 Range/Units 15:25 Urine Color Yellow Urine Appearance Clear (Clear) Urine pH 7.0 (4.5-7.5) Ur Specific [place] 1.010 (1.000-1.030) Urine Protein Negative (Negative) Urine Glucose (UA) Negative (Negative) Diagnostic Findings CT ABD/PELVIS: IMPRESSION: 1. Chronic left pleural effusion with associated pleural calcification 2. Pronounced gaseous distention of the transverse colon which measures 12.6 cm. There is a transition zone at the level of splenic flexure. While a discrete mass is not visualized on CT scanning, this does not exclude an obstructing lesion. 3. No evidence of acute diverticulitis. No evidence of acute appendicitis. 4. Nonobstructing left renal calculus Code Status & VTE Plan VTE Prophylaxis Plan VTE Prophylaxis will be ordered: Yes Supervising Physician Co-Signing Physician Notes Patient is a 74-year-old male with history of gastroparesis, Anthony's esophagus, COPD, CAD, CKD stage IV and other medical problems presents with history of gradually worsening abdominal distention, constipation with overflow watery diarrhea. Patient was evaluated by his printed forms proofreader and was sent to ED for further evaluation. Please review HPI for complete details of presentation. CT abdomen suggestive of pronounced gaseous distention of the transverse colon with transition zone at the level of the splenic flexure. He denied any abdominal pain. He admits to delaying care secondary to worry about COVID exposure. He states having some dyspnea secondary to distended abdomen. On examination patient is obese, no apparent distress, normocephalic atraumatic, lungs--decreased breath sounds, clear to auscultation, S1-S2, no murmur, chronic left lower extremity edema(unchanged as per patient which he attributes to varicose vein surgery), abdomen--firm, grossly distended, decreased bowel sounds, nontender. Grossly no focal neurological deficits. Patient is admitted for management of colonic distention. Cannot rule out mass/volvulus. Conservative management as per surgery. Appreciate GI, surgery input. Placed on NG tube, rectal tube for decompression. Keep him n.p.o. for possible colonic decompression tomorrow. Mild leukocytosis noted. No antibiotics for now. Prolonged QTC noted at 476. Avoid QTC prolonging meds as able. Requested covered screen for possible procedure. Agree with holding diuretics for now. I personally reviewed the record. Patient is interviewed and examined at bedside. Patient's care is coordinated with Iman Cordero PA-C. Please refer to the documentation above for details of patient's presentation and for discussion of other issues.
--- NOTE | 2019-11-19 18:16 | XRay Report ---
XR KUB/Abdomen 1 view CLINICAL HISTORY: post NG tube placement tube position COMPARISON STUDY: 08/20/2012 FINDINGS: Nasogastric gastric tube placed in the mid stomach. Moderate colonic distention. No seconda ry signs of free air. IMPRESSION: Nasogastric tube placed in the mid stomach. ACT 112: Negative or not required by law. The above report was generated using voice recognition software. It may contain grammatical, syntax or spelling errors. Electronically signed by: Dereje Patel M.D. 11/19/2019 6:15 PM
[2019-11-19] MEDS ORDERED: GLUCAGON FOR INJ 1 MG VIAL SQ PRN (20:22)
[2019-11-19] MEDS ORDERED: GLUCOSE 10 TABS/TUBE PO PRN (20:22)
[2019-11-19] MEDS ORDERED: GLUCOSE 40% GEL 15 GM TUBE PO PRN (20:22)
[2019-11-19] MEDS ORDERED: DEXTROSE 50% 50 ML SYRINGE IV PRN (20:22)
[2019-11-19] MEDS ORDERED: PROMETHAZINE HCL 12.5 MG in SODIUM CHLORIDE 0.9% 50 ML IV PRN (20:22)
[2019-11-19] MEDS ORDERED: CARBOHYDRATES FOR HYPOGLYCEMIA PO PRN (20:22)
[2019-11-19] MEDS: ALBUT/IPRATROP 3MG/0.5MG NEB 3 ML VIAL NEB SCH (20:58)
[2019-11-19] MEDS: INSULIN ASPART 100 UNITS/ML 3 ML PEN SC SCH (22:09)
[2019-11-19] MEDS: INSULIN GLARGINE SOLOSTAR 100 UNITS/ML 3 ML PEN SC SCH (22:10)
[2019-11-19] MEDS: SODIUM CHLORIDE 0.9% 1000ML 1,000 ML IV SCH (22:14)
[2019-11-20] MEDS: ALBUT/IPRATROP 3MG/0.5MG NEB 3 ML VIAL NEB SCH ×4 (00:34→19:11)
[2019-11-20] MEDS ORDERED: PROMETHAZINE HCL 12.5 MG in SODIUM CHLORIDE 0.9% 50 ML IV PRN (05:54)
[2019-11-20] MEDS ORDERED: TRAMADOL HCL 50 MG TABLET PO PRN ×2 (05:54→21:09)
[2019-11-20] MEDS ORDERED: HYDROmorphone INJ 0.5 MG/0.5 ML SYR IV PRN (05:54)
[2019-11-20] MEDS ORDERED: ACETAMINOPHEN 325 MG TAB PO PRN (05:54)
[2019-11-20 06:27] LABS: Hematocrit (blood only) 38.2 % (42-52); Hemoglobin 12.3 g/dL (14.0-18.0); Mean Corpuscular Hemoglobin 31.1 pg (25-34); Mean Corpuscular Hgb Conc 32.2 g/dL (32-36); Mean Corpuscular Volume 96.5 fL (80-100); Mean Platelet Volume 11.4 fL (7.4-10.4); Platelet Count 189 K/uL (130-400); RDW Coefficient of Variation 15.1 % (11.5-14.5); RDW Standard Deviation 52.7 fL (36.4-46.3); Red Blood Count 3.96 M/uL (4.7-6.1); White Blood Count 11.32 K/uL (4.8-10.8)
[2019-11-20] MEDS: METOPROLOL TARTRATE 1 MG/ML VIAL IV SCH ×3 (06:37→17:40)
[2019-11-20 07:05] LABS: Potassium 3.8 mmol/L (3.5-5.1)
[2019-11-20 07:06] LABS: BUN Creatinine Ratio 25.4 (10-20); Calcium 9.4 mg/dl (8.5-10.1); Creatinine Clr Calc Pharmacy 38.9 ml/min; Est GFR (African American) 37.9; Est GFR (Non-African American) 32.7
--- NOTE | 2019-11-20 07:32 | XRay Report ---
KUB HISTORY: NG tube placement COMPARISON: KUB 11/19/2019. FINDINGS: Nasogastric tube terminates in the expected location of the body of the stomach. Markedly d istended gas-filled colon is again noted. This has progressed compared to the prior study. There is a right total hip arthroplasty. Left-sided nephrolithiasis. No renal calculi. No ureteral calculi. No pneumoperitoneum or pneumatosis. IMPRESSION: 1. Nasogastric tube terminates in the body of the stomach. 2. Markedly distended gas-filled colon has progressed. ACT 112: Negative or not required by law. Electronically signed by: Skip Martinez M.D. 11/20/2019 7:31 AM
[2019-11-20] MEDS: INSULIN ASPART 100 UNITS/ML 3 ML PEN SC SCH ×4 (08:27→21:16)
--- NOTE | 2019-11-20 10:30 | Gastroenterology Progress Note ---
Date of Service November 20, 2019 Assessment & Plan (1) Colon distention: Pt is a 74 y/o male w chronic constipation, on narcotics, evaluated for colonic distension. Non contrasted CT abd/pelvis showed gaseous distension on transverse colon 12.6cm, transition zone at level of splenic flexure. Labs w mild leukocytosis, no anion gap. No abd pain, n/v on exam. - Keep NPO for colonic decompression/colonic stent placement w Dr. Blaze Chou in OR this afternoon. Tap water enema prep ordered - Surgery following, appreciate recs. - NGT and rectal tube decompression. Admission and Anticipated Discharge Date Admission Date: November 19, 2019 Supervising Physician Co-Signing Physician Notes I saw and evaluated the patient. He presents with progressive colonic dilation and a question of a stricture at the splenic flexture. We are planning for colonsocopy with decompression (possible stent if a mass is noted). We have discussed the risks to include bleeding, infection, perforation, pain, failed procedure and need for follow-up studies. Subjective Pt c/o NGT irritation in nose/throat. He denies n/v, some mild pressure on lower abd area. NGT output 50mL; Rectal tube w minimal liquid brown stool output Review of Systems Review of Systems: All systems reviewed & are unremarkable except as noted in HPI & below Physical Exam Constitutional: WD/WN, vitals as above well groomed, cooperative and comfortable Eyes: PERRL, conjunctivae normal, anicteric sclerae ENMT: external ear and nose normal, oropharynx normal Respiratory: normal respiratory effort, lungs clear to auscultation Cardiovascular: RRR, no murmur, no edema Gastrointestinal (Abdomen): Inspection/Auscultation: + abdomen distended (marked distension, tympanic; high pitched sounds) Skin: no jaundice Psychiatric: A+Ox3, euthymic affect Lymphatic: no lymphedema Results & Data ([facility]) Vital Signs (Past 12 Hours) Vital Signs Temp Pulse Pulse Resp BP BP Pulse Ox 11/20/19 07:55 82 11/20/19 07:30 36.7 C 81 20 120/74 93 11/20/19 07:12 77 18 95 11/20/19 06:37 60 11/20/19 05:29 81 11/20/19 04:11 36.7 C 75 17 131/74 97 11/20/19 01:23 36.6 C 96 H 20 142/83 H 92 11/20/19 00:34 79 16 96 11/19/19 22:55 36.7 C 82 18 122/68 95
[2019-11-20] MEDS: SODIUM CHLORIDE 0.9% 1000ML 1,000 ML IV SCH (10:44)
[2019-11-20] MEDS ORDERED: PANTOprazole 40 MG in SYRINGE 0 ML IV SCH (11:00)
[2019-11-20] MEDS: INSULIN GLARGINE SOLOSTAR 100 UNITS/ML 3 ML PEN SC SCH ×2 (11:02→21:17)
--- NOTE | 2019-11-20 11:36 | Hospitalist Progress Note ---
Date of Service November 20, 2019 Assessment & Plan (1) Colon distention: stent placement for pseudo-obstruction placed this afternoon. Pt feels improved overall. Cont suportive care. GI consulted and following as is surgery. (2) CKD (chronic kidney disease), stage IV: at baseline, avoid nephrotoxic agents when able. (3) Diabetes mellitus, type 2: controlled A1C, and at goal inpatient glucose. (4) CAD (coronary artery disease): CAD s/p CABG x5 in 2004, s/p stent in 2005 & 2006. ASA held, but continue medical management of CAD. (5) Chronic obstructive pulmonary disease: Wears nocturnal oxygen. -recent prednisone taper prior to hospitalization. Stable, no exacerbation. Bronchodilators PRN. (6) HTN (hypertension): restart ACEI and oral Metop. (7) Pulmonary nodule, right: History pulmonary nodule, following with Dr. Lino with pulmonology. 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 Not surgical candidate (8) DVT prophylaxis: SCDs/ambulation Full COde Dispo-to home when medically stable. Yara Juan DO [facility] Admission and Anticipated Discharge Date Admission Date: November 19, 2019 Subjective doing well today s/p procedure tolerating clear liquids reports some throat soreness from the NGT Review of Systems Review of Systems: All systems reviewed & are unremarkable except as noted in Subjective Physical Exam Physical Exam: CONSTITUTIONAL: WNWD, vitals as above, generally well- appearing EYES: normal conjunctivae, no scleral icterus ENT: MMM RESPIRATORY: clear to auscultation bilaterally, no crackles, rales or wheezes, normal respiratory effort CARDIOVASCULAR: regular rate and rhythm, S1 and 2 heard without murmurs, gallops or rubs, no JVD, no peripheral edema GASTROINTESTINAL: normal bowel sounds, soft, nontender, nondistended MUSCULOSKELETAL: strength 5/5 throughout, head is normocephalic and atraumatic SKIN: warm and dry, no rashes NEUROLOGIC: CN 2-12 grossly intact, normal cognition, normal speech, no tremor, no gross focal deficits. Results & Data Results & Data ([facility]) Vital Signs (Past 12 Hours) Vital Signs Temp Pulse Pulse Resp BP Pulse Ox 11/20/19 11:28 36.7 C 88 20 127/73 95 11/20/19 07:55 82 06/23/20 07:30 36.7 C 81 20 120/74 93 11/20/19 07:12 77 18 95 11/20/19 06:37 60 11/20/19 05:29 81 11/20/19 04:11 36.7 C 75 17 131/74 97 11/20/19 01:23 36.6 C 96 H 20 142/83 H 92 11/20/19 00:34 79 16 96 Laboratory Results Short CBC 11/19/19 11/20/19 Range/Units 14:29 06:05 WBC 11.37 H 11.32 H (4.8-10.8) K/uL Hgb 12.0 L 12.3 L (14.0-18.0) g/dL Hct 37.1 L 38.2 L (42-52) % Plt Count 190 189 (130-400) K/uL BMP 11/19/19 11/20/19 14:29 06:05 Sodium 135 L 140 Potassium 4.2 3.8 Chloride 100 103 Carbon Dioxide 27 31 BUN 59 H 50 H Creatinine 2.30 H 1.95 H D Glucose 191 H 109 H Calcium 9.1 9.4 Liver Function 11/19/19 Range/Units 14:29 Total Bilirubin 0.3 (0.2-1) mg/dl AST 8 L (15-37) U/L ALT 22 (12-78) U/L Alkaline Phosphatase 116 (45-117) U/L Albumin 3.6 (3.4-5.0) gm/dl Urine 11/19/19 Range/Units 15:25 Urine Color Yellow Urine Appearance Clear (Clear) Urine pH 7.0 (4.5-7.5) Ur Specific [place] 1.010 (1.000-1.030) Urine Protein Negative (Negative) Urine Glucose (UA) Negative (Negative) Medications Administered Current Inpatient Medications Acetaminophen (Tylenol) 650 mg PO Q6H PRN PRN Reason: Fever Stop: 12/20/19 05:53 Albuterol (Duoneb) 3 ml NEB Q6R DAMON Stop: 12/19/19 20:21 Last Admin: 11/20/19 07:11 Dose: 3 ml Documented by: Dextrose (Dextrose 50%) 25 - 50 ml IV UD PRN; Protocol PRN Reason: Hypoglycemia Protocol Stop: 12/19/19 20:21 Fluticasone/Vilanterol (Breo Ellipta 100/25 Mcg Inh) 1 puffs INH DAILY DAMON; Protocol Stop: 12/20/19 08:59 Glucagon (Glucagen) 1 mg SQ UD PRN; Protocol PRN Reason: Hypoglycemia Protocol Stop: 12/19/19 20:21 Glucose (Dex4 Glucose) 4 - 8 tabs PO UD PRN; Protocol PRN Reason: Hypoglycemia Protocol Stop: 12/19/19 20:21 Glucose (Glucose 40%) 15 - 30 gm PO UD PRN; Protocol PRN Reason: Hypoglycemia Protocol Stop: 12/19/19 20:21 Hydromorphone HCl (Dilaudid) 0.5 mg IV Q3H PRN PRN Reason: Pain Stop: 12/04/19 05:53 Sodium Chloride (Nss 1000ml) 1,000 mls @ 80 mls/hr IV .[id number] [facility] Stop: 11/20/19 21:21 Last Admin: 11/19/19 22:14 Dose: 80 mls/hr Documented by: Promethazine HCl 12.5 mg/ (Sodium Chloride) 50.5 mls @ 202 mls/hr IV Q6H PRN PRN Reason: Nausea And Vomiting Stop: 12/19/19 20:21 Pantoprazole Sodium 40 mg/ (Syringe) 10 mls @ 5 mls/min IV DAILY@1100 [facility] Stop: 12/20/19 10:59 Insulin Aspart (Novolog Flexpen) 0 units SC ACHS [facility] Stop: 12/19/19 20:59 Last Admin: 11/20/19 08:27 Dose: Not Given Documented by: Insulin Glargine (Lantus Solostar Pen) 15 units SC BID [facility] Stop: 12/19/19 20:59 Last Admin: 11/20/19 11:02 Dose: Not Given Documented by: Metoprolol Tartrate (Lopressor) 5 mg IV Q6 DAMON Stop: 12/20/19 06:59 Last Admin: 11/20/19 06:37 Dose: Not Given Documented by: Miscellaneous (Carbohydrates For Hypoglycemia) 15 - 30 gm PO UD PRN PRN Reason: Hypoglycemia Protocol Stop: 12/19/19 20:21 Tramadol HCl (Ultram) 25 - 50 mg PO Q4H PRN PRN Reason: Pain Stop: 12/20/19 05:53
[2019-11-20] MEDS: FLUTICASONE/VILANTEROL 100/25MCG 14 PUFFS/INHALER INH SCH (11:38)
[2019-11-20] MEDS ORDERED: PROPOFOL IV EMULSION 10 MG/ML 20 ML VIAL IV ONE (13:09)
[2019-11-20] MEDS ORDERED: LIDOCAINE HCL 2% 2 ML VIAL/AMP(20MG/ML) INFIL ONE (13:09)
[2019-11-20] MEDS ORDERED: MINERAL OIL 30 ML UDC ONE (13:13)
[2019-11-20] MEDS ORDERED: fentaNYL citrate 100 MCG/2 ML VIAL ONE (13:38)
--- NOTE | 2019-11-20 13:45 | History & Physical Bridge Note ---
Date of Service November 20, 2019 History & Physical Bridge Note I have examined the patient, reviewed the History & Physical and in the interval since the performance of the History & Physical I have noted the following changes of clinical significance: no changes noted
[2019-11-20] MEDS ORDERED: ePHEDrine sulfate 50 MG/ML AMP IV PRN (13:46)
[2019-11-20] MEDS ORDERED: ONDANSETRON INJ 2 MG/ML 2 ML VIAL IV PRN (13:46)
[2019-11-20] MEDS ORDERED: fentaNYL citrate 100 MCG/2 ML VIAL IV PRN (13:46)
[2019-11-20] MEDS ORDERED: ATROPINE SULFATE 0.1 MG/ML 10ML SYR IV PRN (13:46)
--- NOTE | 2019-11-20 13:46 | Anesthesiology Consultation ---
Date of Service November 20, 2019 Assessment & Plan ASA ASA4 Proposed Anesthesia Anesthesia Type: General Risk / Benefits Reviewed With: PT / POA / Parent / Guardian, Accepts Plan and Informed Consent Obtained History Surgery Operation Date: 11/20/19 13:30 Proposed Procedures p Colonoscopy with Stent Placement - Blaze Chou Height/Weight Height: 5 ft 8 in Weight: 107.5 kg Allergies Allergy/AdvReac Type Severity Reaction Status Date / Time No Known Allergies Allergy U Verified 11/19/19 15:52 Medications Home Medications Medication Instructions Recorded Confirmed Last Taken Lantus U-100 Insulin 30 - 40 unit SUBCUT QPM 03/08/18 11/19/19 11/18/19 albuterol sulfate 2.5 mg INHALATION QID PRN 03/08/18 11/19/19 11/19/19 allopurinol 450 mg PO QAM 03/08/18 11/19/19 11/19/19 aspirin [Aspirin Low Dose] 81 mg PO QAM 03/08/18 11/19/19 11/19/19 atorvastatin 40 mg PO HS 03/08/18 11/19/19 11/18/19 calcitriol 0.25 mcg PO QAM 03/08/18 11/19/19 11/19/19 colchicine 0.6 mg PO DAILY PRN 03/08/18 11/19/19 03/08/18 12:00 finasteride 5 mg PO QAM 03/08/18 11/19/19 11/19/19 furosemide 80 mg PO BID 03/08/18 11/19/19 11/19/19 insulin aspart U-100 [Novolog 1 dose SUBCUT TIDM 03/08/18 11/19/19 11/19/19 Flexpen U-100 Insulin] 20 units ipratropium bromide 2.5 ml INHALATION QID PRN 03/08/18 11/19/19 11/19/19 metoprolol succinate 50 mg PO QAM 03/08/18 11/19/19 11/19/19 omeprazole 40 mg PO QAM 03/08/18 11/19/19 11/19/19 ramipril 1.25 mg PO QAM 03/08/18 11/19/19 11/19/19 spironolactone 25 - 37.5 mg PO QAM 03/08/18 11/19/19 11/19/19 tramadol 50 mg PO Q6H PRN 03/08/18 11/19/19 11/18/19 prednisone 10 mg PO QAM 11/19/19 11/19/19 11/19/19 Active Medications Generic Name Dose Route Start Last Admin Trade Name Demarioq PRN Reason Stop Dose Admin Albuterol 3 ml 11/19/19 20:22 11/20/19 13:14 Duoneb NEB 12/19/19 20:21 3 ml Q6R DAMON Administration Fluticasone/Vilanterol 1 puffs 11/20/19 09:00 11/20/19 11:38 Breo Ellipta 100/25 Mcg Inh INH 12/20/19 08:59 1 puffs DAILY DAMON Administration Protocol Sodium Chloride 1,000 mls @ 80 mls/hr 11/19/19 20:22 11/20/19 10:44 Nss 1000ml IV 11/20/19 21:21 80 mls/hr .[id number] DAMON Administration Pantoprazole Sodium 40 mg/ 10 mls @ 5 mls/min 11/20/19 11:00 11/20/19 13:03 Syringe IV 12/20/19 10:59 5 mls/min DAILY@1100 DAMON Administration Insulin Aspart 0 units 11/19/19 21:00 11/20/19 12:30 Novolog Flexpen SC 12/19/19 20:59 1 units ACHS DAMON Administration Insulin Glargine 15 units 11/19/19 21:00 11/20/19 11:02 Lantus Solostar Pen SC 12/19/19 20:59 Not Given BID DAMON Metoprolol Tartrate 5 mg 11/20/19 07:00 11/20/19 12:30 Lopressor IV 12/20/19 06:59 5 mg Q6 DAMON Administration NPO Date Last Intake of Fluids: 11/19/19 Time Last Intake of Fluids: 10:00 Date Last Intake of Solids: 11/19/19 Time Last Intake of Solids: 10:00 Past Medical History Medical History BPH (benign prostatic hyperplasia) CAD (coronary artery disease) Last cardiac cath 08/09/2011 and demonstrated severe kiana vessel disease and an occluded SVG to the OM2. All other grafts noted to be patent at that time. 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 MCKINNEY (STAGE 3-4) Chronic obstructive pulmonary disease Emphysema Congestive heart failure chronic combined systolic and diastolic EF 45% 2011 Depression H/O -- NO MEDS CURRENTLY Diabetes mellitus, type 2 IDDM Diastolic CHF Dyslipidemia GERD (gastroesophageal reflux disease) Gout History of colon polyps HTN (hypertension) MRSA (methicillin resistant Staphylococcus aureus) Per infection control, 02/2018: "Patient has a history of MRSA in a wound and a nasal screen in 2014. Patient requires contact precautions." Myocardial Infarction 2005 - CABG X5 VESSELS. Subsequent caths with stenting 2005 and 2006. Obesity On home oxygen therapy 2LPM VIA N/C AT HS Sleep apnea O2 AT NIGHT Exercise / Class Metabolic Activity II 4-5 Yardwork/Stairs/Walk up hill Past Family History Family History Other No family history of adverse response to anesthesia Past Surgical History Surgical History H/O lithotripsy x 2 History of bronchoscopy x2, last 02/2018--benign right lower lobe lesion History of cardiac cath 2006 PCI of LCx 2007 PCI of LAD 2012 severe kiana vessel dz and an occluded SVG to OM2 graft. All other grafts patent. History of colonoscopy History of coronary artery bypass graft X5 VESSELS AT [facility] 2004 History of esophagogastroduodenoscopy (EGD) History of total hip arthroplasty RIGHT HIP -- WITH MULTIPLE REVISIONS Past Anesthesia History No Hx of Anesthesia Complications and No Family Hx of Anesthesia Complications History of PONV No Hx of PONV and No Hx of Motion Sickness Social History Smoking Status: Former smoker tobacco type: cigarettes Smoking cigarettes per day: 60 Smoking End Date: 2004 Hx Alcohol Use: No Hx Substance Use: No substance use type: does not use Review of Systems denies fever/cough/ colds/ chest pain/ SOB/ MARVIN Constitutional: no fever and no chills Respiratory: no cough and no dyspnea denies MARVIN Cardiovascular: no chest pain and no dyspnea on exertion Physical Exam Vital Signs Last Vital Signs Temp 36.9 C 11/20/19 13:35 Pulse 93 H 11/20/19 13:35 Resp 20 11/20/19 13:35 BP 142/73 H 06/23/20 13:35 Pulse Ox 96 11/20/19 13:35 ENMT Mouth: + edentulous; no TMJ abnormality and no dentition abnormality Thyromental Distance: > or= 3.5 Finger Breadths Mallampati Class: I Neck + short neck and + thick neck; neck extension not limited Respiratory normal respiratory effort; no respiratory distress Auscultation: lungs clear to auscultation bilaterally Cardiovascular Rate/Rhythm: regular rate and regular rhythm Neurologic moves all extremities Psychiatric Orientation: alert and oriented x 3 Testing Laboratory Results 11/20/19 06:05 11/20/19 06:05 Urine Color Yellow 11/19/19 15:25 Urine Appearance Clear (Clear) 11/19/19 15:25 Urine pH 7.0 (4.5-7.5) 11/19/19 15:25 Ur Specific [place] 1.010 (1.000-1.030) 11/19/19 15:25 Urine Protein Negative (Negative) 11/19/19 15:25 Urine Glucose (UA) Negative (Negative) 11/19/19 15:25 Urine Ketones Negative (Negative) 11/19/19 15:25 Urine Nitrite Negative (Negative) 11/19/19 15:25 Ur Leukocyte Esterase 2+ (Negative) H 11/19/19 15:25 Urine WBC (Auto) 10-30 /hpf (0-5) H 11/19/19 15:25 Urine RBC (Auto) 0-4 /hpf (0-4) 11/19/19 15:25 U Hyaline Cast (Auto) 0 /lpf (0-5) 11/19/19 15:25 U Epithel Cells (Auto) 10-20 /lpf (0-5) H 11/19/19 15:25 Urine Bacteria (Auto) Negative (Negative) 11/19/19 15:25 11/19/19 15:25 Urine Culture - Preliminary Urine,Clean Catch Pin-point growth present, reincubating. 11/20/19 11/20/19 11/20/19 11:39 07:34 06:29 POC Glucose 170 H 112 H 106 H
[2019-11-20] MEDS ORDERED: ONDANSETRON INJ 2 MG/ML 2 ML VIAL ONE (14:14)
[2019-11-20] MEDS ORDERED: SUCCINYLCHOLINE CHLORIDE 20 MG/ML 10 ML VIAL IV ONE (14:14)
--- NOTE | 2019-11-20 14:48 | Post Operative Brief Note ---
Immediate Post Op Note v1 Date of Surgery November 20, 2019 Pre & Post Diagnosis Operation Date: 11/20/19 13:30 Pre-Op Diagnosis: COLONIC DISTENTION Post-Op Diagnosis: COLONIC pseudo-obstruction I identified the patient and participated in the time-out.: Yes Procedure Operation Date: 11/20/19 13:30 Actual Procedures p Colonoscopy with Stent Placement and decompression tube placement - Blaze Chou Surgeon Blaze Chou Er Medical Technician none Estimated Blood Loss 0 Findings Consistent with Post-Op Diagnosis
--- NOTE | 2019-11-20 14:50 | Fluoroscopy Report ---
INTRAOPERATIVE RADIOGRAPHS CLINICAL HISTORY: Colonoscopy with stent placement. Fluoroscopy time: 27 seconds. FINDINGS: 2 spot fluoroscopic views of the right upper quadrant are presented. Initial image shows an endoscope projecting over the right upper quadrant. The second image shows a colonic tube in place. The tip projects over the hepatic flexure. IMPRESSION: Intraoperative images from colonic tube placement as above. Electronically signed by: Reggie Stone M.D. 11/20/2019 2:48 PM
--- NOTE | 2019-11-20 14:52 | Communication Note ---
Date of Service: November 20, 2019 Colonoscopy results Patient without an obvious stricture mass or vovulus to the ascending colon. A colonic decompressin tube was placed. Recomendations: avoid narcotics daily KUB further recomendations per inpatient GI service.
--- NOTE | 2019-11-20 14:52 | Surgery Progress Note ---
Date of Service PATIENT SEEN THIS AM WITH November 20, 2019 Assessment & Plan (1) Colon distention: Unclear etiology of distention Colonoscopy scheduled for today for decompression possible stent Plan: Keep NPO for colonoscopy today Continue NGT Continue pain management as needed will await results of colonoscopy for any surgical intervention if required. Continue medical management Dr. Shane has seen and examined pt, agrees with above. Subjective Patient sitting up in chair at bedside rectal tube placed yesterday, leaked this morning had some liquid stool NGT very bothersome still bloated but not complaining of significant abdominal pain Physical Exam Constitutional: WD/WN, vitals as above + obese; not ill appearing Respiratory: no respiratory distress Gastrointestinal (Abdomen): Inspection/Auscultation: + abdomen distended (moderate distention); + abnormal bowel sounds Percussion/Palpation: abdomen soft; abdomen nontender, no guarding and abdomen not rigid Skin: no rashes, warm and dry Psychiatric: Orientation: alert and oriented x 3 Results & Data Vital Signs (Past 12 Hours) Vital Signs Temp Pulse Pulse Resp BP BP Pulse Ox 11/20/19 13:35 36.9 C 93 H 20 142/73 H 96 11/20/19 13:15 77 18 95 11/20/19 12:30 86 130/70 11/20/19 11:28 36.7 C 88 20 127/73 95 11/20/19 07:55 82 11/20/19 07:30 36.7 C 81 20 120/74 93 11/20/19 07:12 77 18 95 11/20/19 06:37 60 11/20/19 05:29 81 11/20/19 04:11 36.7 C 75 17 131/74 97 Laboratory Results 11/20/19 11/20/19 11/20/19 Range/Units 16:28 14:49 11:39 WBC (4.8-10.8) K/uL RBC (4.7-6.1) M/uL Hgb (14.0-18.0) g/dL Hct (42-52) % MCV (80-100) fL MCH (25-34) pg MCHC (32-36) g/dL RDW Std Deviation (36.4-46.3) fL RDW Coeff of Josiah (11.5-14.5) % Plt Count (130-400) K/uL MPV (7.4-10.4) fL Sodium (136-145) mmol/L Potassium (3.5-5.1) mmol/L Chloride (98-107) mmol/L Carbon Dioxide (21-32) mmol/L Anion Gap (3-11) BUN (7-18) mg/dl Creatinine (0.6-1.4) mg/dl Est Cr Clr Drug Dosing ml/min Est GFR ( Amer) Est GFR (Non-Af Amer) BUN/Creatinine Ratio (10-20) Glucose (70-99) mg/dl POC Glucose Pending 175 H 170 H (70-99) mg/dl Calcium (8.5-10.1) mg/dl COVID-19 PCR (Negative) 11/20/19 11/20/19 11/20/19 Range/Units 07:34 06:29 06:05 WBC (4.8-10.8) K/uL RBC (4.7-6.1) M/uL Hgb (14.0-18.0) g/dL Hct (42-52) % MCV (80-100) fL MCH (25-34) pg MCHC (32-36) g/dL RDW Std Deviation (36.4-46.3) fL RDW Coeff of Josiah (11.5-14.5) % Plt Count (130-400) K/uL MPV (7.4-10.4) fL Sodium 140 (136-145) mmol/L Potassium 3.8 (3.5-5.1) mmol/L Chloride 103 (98-107) mmol/L Carbon Dioxide 31 (21-32) mmol/L Anion Gap 6.0 (3-11) BUN 50 H (7-18) mg/dl Creatinine 1.95 H D (0.6-1.4) mg/dl Est Cr Clr Drug Dosing 38.9 ml/min Est GFR ( Amer) 37.9 Est GFR (Non-Af Amer) 32.7 BUN/Creatinine Ratio 25.4 H (10-20) Glucose 109 H (70-99) mg/dl POC Glucose 112 H 106 H (70-99) mg/dl Calcium 9.4 (8.5-10.1) mg/dl COVID-19 PCR (Negative) 0611/19/19 11/19/19 Range/Units 06:05 23:05 20:32 WBC 11.32 H (4.8-10.8) K/uL RBC 3.96 L (4.7-6.1) M/uL Hgb 12.3 L (14.0-18.0) g/dL Hct 38.2 L (42-52) % MCV 96.5 (80-100) fL MCH 31.1 (25-34) pg MCHC 32.2 (32-36) g/dL RDW Std Deviation 52.7 H (36.4-46.3) fL RDW Coeff of Josiah 15.1 H (11.5-14.5) % Plt Count 189 (130-400) K/uL MPV 11.4 H (7.4-10.4) fL Sodium (136-145) mmol/L Potassium (3.5-5.1) mmol/L Chloride (98-107) mmol/L Carbon Dioxide (21-32) mmol/L Anion Gap (3-11) BUN (7-18) mg/dl Creatinine (0.6-1.4) mg/dl Est Cr Clr Drug Dosing ml/min Est GFR ( Amer) Est GFR (Non-Af Amer) BUN/Creatinine Ratio (10-20) Glucose (70-99) mg/dl POC Glucose 199 H (70-99) mg/dl Calcium (8.5-10.1) mg/dl COVID-19 PCR NEGATIVE (Negative)
--- NOTE | 2019-11-20 14:54 | GI REPORT ---
Patient Name: Godwin Hidalgo Procedure Date: 11/20/2019 1:46 PM Date of : 1945 Admit Type: Inpatient Age: 74 Gender: Male Attending MD: Blaze Chou DO Procedure: Colonoscopy Providers: Blaze Chou DO Referring MD: Yara Juan Do Indications: Epigastric abdominal pain, Abnormal CT of the GI tract Medicines: General Anesthesia Complications: No immediate complications. Estimated blood loss: Minimal. Estimated Blood Loss: Estimated blood loss was minimal. Procedure: Pre-Anesthesia Assessment: - Prior to the procedure, a History and Physical was performed, and patient medications, allergies and sensitivities were reviewed. The patient's tolerance of previous anesthesia was reviewed. - The risks and benefits of the procedure and the sedation options and risks were discussed with the patient. All questions were answered and informed consent was obtained. - Patient identification and proposed procedure were verified prior to the procedure by the physician, the nurse and the dairy specialist. The procedure was verified in the procedure room. - Pre-procedure physical examination revealed no contraindications to sedation. - ASA Grade Assessment: IV - A patient with severe systemic disease that is a constant threat to life. - After reviewing the risks and benefits, the patient was deemed in satisfactory condition to undergo the procedure. - The anesthesia plan was to use general anesthesia. - Immediately prior to administration of medications, the patient was re-assessed for adequacy to receive sedatives. - The heart rate, respiratory rate, oxygen saturations, blood pressure, adequacy of pulmonary ventilation, and response to care were monitored throughout the procedure. - The physical status of the patient was re-assessed after the procedure. After I obtained informed consent, the scope was passed under direct vision. Throughout the procedure, the patient's blood pressure, pulse, and oxygen saturations were monitored continuously. The Endoscope was introduced through the anus and advanced to the hepatic flexure for evaluation. This was the intended extent. The colonoscopy was performed without difficulty. The patient tolerated the procedure well. The quality of the bowel preparation was good. The Colonoscope was introduced through the anus and advanced to the ascending colon for evaluation. This was the intended extent. Findings: The perianal and digital rectal examinations were normal. Pertinent negatives include normal sphincter tone. The sigmoid colon revealed moderately excessive looping. The lumen of the sigmoid colon, descending colon, transverse colon and ascending colon was significantly dilated. A colonic decompression tube was placed. Estimated blood loss was minimal. The exam was otherwise without abnormality. Impression: - There was significant looping of the colon. - Dilated in the sigmoid colon, in the descending colon, in the transverse colon and in the ascending colon, decompression tube placed. - The examination was otherwise normal. - No specimens collected. Recommendation: - Return patient to hospital pham for ongoing care. - Daily KUB - Aviod use of narcotics if possible Blaze Chou D.O. Blaze Chou, 11/20/2019 2:53:59 PM This report has been signed electronically. Note Initiated On: 11/20/2019 1:46 PM Number of Addenda: 0 I attest to the content of the Intraoperative Record and orders documented therein, exceptions below {[id number]}
--- NOTE | 2019-11-20 15:19 | Anesthesiology Progress Note ---
Date of Service November 20, 2019 Anesthesia Post Procedure Vital Signs Vital Signs: Temp Pulse Pulse Pulse Resp BP BP 11/20/19 15:15 86 20 145/73 H 11/20/19 15:05 87 19 151/65 H 11/20/19 14:55 88 29 H 143/72 H 11/20/19 14:49 98.1 F 88 25 H 161/78 H 11/20/19 13:35 98.4 F 93 H 20 11/20/19 13:15 77 18 11/20/19 12:30 86 130/70 11/20/19 11:28 98.1 F 88 20 11/20/19 07:55 82 11/20/19 07:30 98.1 F 81 20 11/20/19 07:12 77 18 11/20/19 06:37 60 11/20/19 05:29 81 11/20/19 04:11 98.1 F 75 17 11/20/19 01:23 97.9 F 96 H 20 11/20/19 00:34 79 16 11/19/19 22:55 98.1 F 82 18 122/68 11/19/19 20:20 96 H 18 11/19/19 18:25 78 18 136/68 11/19/19 17:47 82 18 133/69 11/19/19 16:54 85 18 118/63 11/19/19 15:50 90 21 11/19/19 15:22 92 H 20 129/67 BP Pulse Ox 11/20/19 15:15 92 11/20/19 15:05 100 11/20/19 14:55 100 11/20/19 14:49 100 11/20/19 13:35 142/73 H 96 11/20/19 13:15 95 11/20/19 12:30 11/20/19 11:28 127/73 95 11/20/19 07:55 11/20/19 07:30 120/74 93 11/20/19 07:12 95 11/20/19 06:37 11/20/19 05:29 11/20/19 04:11 131/74 97 11/20/19 01:23 142/83 H 92 11/20/19 00:34 96 11/19/19 22:55 95 11/19/19 20:20 142/83 H 92 11/19/19 18:25 97 06/22/20 17:47 94 11/19/19 16:54 94 11/19/19 15:50 96 11/19/19 15:22 97 Transfer of Care Handoff Completed per policy Notes Mental Status: alert / awake / arousable and participated in evaluation Patient Amnestic to Procedure: Yes Nausea / Vomiting: adequately controlled Pain: adequately controlled Airway Patency, RR, SpO2: stable & adequate BP & HR: stable & adequate Hydration State: stable & adequate Anesthetic Complications: no major complications apparent and Pt Satisfied with anesthetic care
[2019-11-20] MEDS ORDERED: COLCHICINE 0.6 MG TAB PO PRN (21:11)
[2019-11-21] MEDS: ALBUT/IPRATROP 3MG/0.5MG NEB 3 ML VIAL NEB SCH ×4 (01:07→19:16)
[2019-11-21 06:05] LABS: Hematocrit (blood only) 39.1 % (42-52); Hemoglobin 12.6 g/dL (14.0-18.0); Mean Corpuscular Hemoglobin 31.5 pg (25-34); Mean Corpuscular Hgb Conc 32.2 g/dL (32-36); Mean Corpuscular Volume 97.8 fL (80-100); Mean Platelet Volume 11.3 fL (7.4-10.4); Platelet Count 161 K/uL (130-400); RDW Coefficient of Variation 15.1 % (11.5-14.5); RDW Standard Deviation 54.4 fL (36.4-46.3); White Blood Count 9.95 K/uL (4.8-10.8)
[2019-11-21 06:40] LABS: BUN Creatinine Ratio 24.1 (10-20); Calcium 8.9 mg/dl (8.5-10.1); Creatinine Clr Calc Pharmacy 46.8 ml/min; Est GFR (African American) 47.4; Est GFR (Non-African American) 40.9
--- NOTE | 2019-11-21 08:04 | XRay Report ---
KUB HISTORY: Colonic tube insertion. COLON DILATATION COMPARISON: KUB 11/19/2019. FINDINGS: Status post placement of a colonic tube with the tip terminating in the expected location o f the ascending colon. There is been significant improvement in the dilated gas-filled colon. This cu rrently measures up to 11.7 cm in diameter within the transverse colon. Mildly dilated gas-filled loo p of small bowel have also slightly improved. There is a large amount well-formed stool seen within t he proximal colon. There is a right total hip arthroplasty. No renal calculi. No ureteral calculi. N o pneumoperitoneum or pneumatosis. IMPRESSION: Interval placement of a colonic tube with the tip terminating in the expected location of the ascendi ng colon. There is been interval decompression of the colon with the transverse colon measuring 11.7 cm in diameter. ACT 112: Negative or not required by law. Electronically signed by: Skip Martinez M.D. 11/21/2019 8:02 AM
[2019-11-21] MEDS ORDERED: predniSONE 10 MG TABLET PO SCH (09:00)
[2019-11-21] MEDS: INSULIN ASPART 100 UNITS/ML 3 ML PEN SC SCH ×4 (09:15→21:58)
[2019-11-21] MEDS: INSULIN GLARGINE SOLOSTAR 100 UNITS/ML 3 ML PEN SC SCH ×2 (09:15→21:59)
[2019-11-21] MEDS: FLUTICASONE/VILANTEROL 100/25MCG 14 PUFFS/INHALER INH SCH (09:16)
[2019-11-21] MEDS: CALCITRIOL 0.25 MCG CAPSULE PO SCH (09:16)
[2019-11-21] MEDS: FINASTERIDE 5 MG TAB PO SCH (09:16)
[2019-11-21] MEDS: METOPROLOL SUCC 50MG EXT REL TAB PO SCH (09:17)
[2019-11-21] MEDS: ENALAPRIL MALEATE 5 MG TAB PO SCH (09:17)
[2019-11-21] MEDS: LAVAGE SOLUTION 4000ML PR SCH ×7 (10:27→23:39)
[2019-11-21] MEDS ORDERED: METHYLNALTREXONE BROMIDE 12 MG/0.6 ML VIAL SQ ONE (11:30)
--- NOTE | 2019-11-21 11:35 | Gastroenterology Progress Note ---
Date of Service November 21, 2019 Assessment & Plan (1) Colon distention: Pt is a 74 y/o male w chronic constipation, on narcotics, evaluated for colonic distension. Non contrasted CT abd/pelvis showed gaseous distension on transverse colon 12.6cm, transition zone at level of splenic flexure. Labs w mild leukocytosis, no anion gap. He is s/p colonic decompression w rectal tube placement on 11/19. Abd soft on exam w/o tenderness. KUB showed transverse colon 11cm. - Avoid narcotics. Was on Tramadol daily and likely has narcotic ileus - Keep rectal tube and administer Golytely flushes - Relistor 12mg subQ once today - CL diet for now. - KUB tomorrow AM Admission and Anticipated Discharge Date Admission Date: November 19, 2019 Supervising Physician Co-Signing Physician Notes The patient notes that he feels much improved today. He is starting to spontaneously passed some flatus but no stool yet. The rectal tube appears to be in place still. Overall based on the patient's history I wonder if he may have a narcotic induced ileus as he was on Ultram as an outpatient. Recommendations Liquid diet KUB in the morning Patient given a dose of Relistor for narcotic ileus Avoid use of narcotics in this patient Outpatient colonoscopy as the examination performed during this admission was not sufficient for colorectal cancer screening Subjective Pt s/p colonic decompression and rectal tube placement on 11/19. Reports abd doesn't feel as tight, denies abd pain, n/v. KUB this AM showed rectal tube in place, transverse colon 11cm. Review of Systems Review of Systems: All systems reviewed & are unremarkable except as noted in HPI & below Physical Exam Constitutional: WD/WN, vitals as above well groomed, cooperative and comfor table Eyes: PERRL, conjunctivae normal, anicteric sclerae ENMT: external ear and nose normal, oropharynx normal Respiratory: normal respiratory effort, lungs clear to auscultation Cardiovascular: RRR, no murmur, no edema Gastrointestinal (Abdomen): Inspection/Auscultation: + hypoactive bowel sounds Percussion/Palpation: abdomen soft; abdomen nontender Skin: no jaundice Psychiatric: A+Ox3, euthymic affect Lymphatic: no lymphedema Results & Data ([facility]) Vital Signs (Past 12 Hours) Vital Signs Temp Pulse Resp BP BP Pulse Ox 11/21/19 11:02 36.7 C 56 L 18 118/71 98 11/21/19 07:56 90 18 94 11/21/19 07:14 36.5 C 86 20 117/68 95 11/21/19 03:13 36.8 C 86 16 127/70 99 11/21/19 01:07 85 18 85 L
--- NOTE | 2019-11-21 12:17 | Surgery Progress Note ---
Date of Service November 21, 2019 Assessment & Plan (1) Colon distention: s/p colonoscopy with decompression and placement of colonic tube -avss - abd distention improving - no abd pain, n/v - liquid stool in decompression tube - Likely narcotic ileus?? Plan: No acute surgical intervention required at this time continue clears, diet advancement per GI continue decompression tube encouraged ambulation avoid narcotics Dr. Shane has seen and examined pt, agrees with above. Subjective feeling much better today no abdominal pain, n/v tolerated clear liquids pain in nose and throat from NGT is only complaint Physical Exam Constitutional: WD/WN, vitals as above + obese Gastrointestinal (Abdomen): Inspection/Auscultation: abdomen normal to inspection and + abdomen distended (improved) Percussion/Palpation: abdomen soft; abdomen nontender, no guarding and abdomen not rigid Skin: no rashes, warm and dry Psychiatric: Orientation: alert and oriented x 3 Results & Data Vital Signs (Past 12 Hours) Vital Signs Temp Pulse Resp BP BP Pulse Ox 11/21/19 11:02 36.7 C 56 L 18 118/71 98 11/21/19 07:56 90 18 94 11/21/19 07:14 36.5 C 86 20 117/68 95 11/21/19 03:13 36.8 C 86 16 127/70 99 11/21/19 01:07 85 18 85 L Laboratory Results 11/21/19 11/21/19 11/21/19 Range/Units 08:28 05:24 05:24 WBC (4.8-10.8) K/uL RBC (4.7-6.1) M/uL Hgb (14.0-18.0) g/dL Hct (42-52) % MCV (80-100) fL MCH (25-34) pg MCHC (32-36) g/dL RDW Std Deviation (36.4-46.3) fL RDW Coeff of Josiah (11.5-14.5) % Plt Count (130-400) K/uL MPV (7.4-10.4) fL Sodium 141 (136-145) mmol/L Potassium 4.0 (3.5-5.1) mmol/L Chloride 107 (98-107) mmol/L Carbon Dioxide 28 (21-32) mmol/L Anion Gap 6.0 (3-11) BUN 39 H (7-18) mg/dl Creatinine 1.62 H D (0.6-1.4) mg/dl Est Cr Clr Drug Dosing 46.8 ml/min Est GFR ( Amer) 47.4 Est GFR (Non-Af Amer) 40.9 BUN/Creatinine Ratio 24.1 H (10-20) Glucose 101 H (70-99) mg/dl POC Glucose 111 H (70-99) mg/dl Calcium 8.9 (8.5-10.1) mg/dl Magnesium 2.5 H (1.8-2.4) mg/dl 11/21/19 11/20/19 11/20/19 Range/Units 05:24 20:25 16:28 WBC 9.95 (4.8-10.8) K/uL RBC 4.00 L (4.7-6.1) M/uL Hgb 12.6 L (14.0-18.0) g/dL Hct 39.1 L (42-52) % MCV 97.8 (80-100) fL MCH 31.5 (25-34) pg MCHC 32.2 (32-36) g/dL RDW Std Deviation 54.4 H (36.4-46.3) fL RDW Coeff of Josiah 15.1 H (11.5-14.5) % Plt Count 161 (130-400) K/uL MPV 11.3 H (7.4-10.4) fL Sodium (136-145) mmol/L Potassium (3.5-5.1) mmol/L Chloride (98-107) mmol/L Carbon Dioxide (21-32) mmol/L Anion Gap (3-11) BUN (7-18) mg/dl Creatinine (0.6-1.4) mg/dl Est Cr Clr Drug Dosing ml/min Est GFR ( Amer) Est GFR (Non-Af Amer) BUN/Creatinine Ratio (10-20) Glucose (70-99) mg/dl POC Glucose 186 H 165 H (70-99) mg/dl Calcium (8.5-10.1) mg/dl Magnesium (1.8-2.4) mg/dl 11/20/19 Range/Units 14:49 WBC (4.8-10.8) K/uL RBC (4.7-6.1) M/uL Hgb (14.0-18.0) g/dL Hct (42-52) % MCV (80-100) fL MCH (25-34) pg MCHC (32-36) g/dL RDW Std Deviation (36.4-46.3) fL RDW Coeff of Josiah (11.5-14.5) % Plt Count (130-400) K/uL MPV (7.4-10.4) fL Sodium (136-145) mmol/L Potassium (3.5-5.1) mmol/L Chloride (98-107) mmol/L Carbon Dioxide (21-32) mmol/L Anion Gap (3-11) BUN (7-18) mg/dl Creatinine (0.6-1.4) mg/dl Est Cr Clr Drug Dosing ml/min Est GFR ( Amer) Est GFR (Non-Af Amer) BUN/Creatinine Ratio (10-20) Glucose (70-99) mg/dl POC Glucose 175 H (70-99) mg/dl Calcium (8.5-10.1) mg/dl Magnesium (1.8-2.4) mg/dl Diagnostic Findings s/p colonoscopy with decompression and colonic tube placement to ascending colon. No evidence of stricture, mass, or volvulus KUB HISTORY: Colonic tube insertion. COLON DILATATION COMPARISON: KUB 11/19/2019. FINDINGS: Status post placement of a colonic tube with the tip terminating in the expected location of the ascending colon. There is been significant improvement in the dilated gas-filled colon. This currently measures up to 11.7 cm in diameter within the transverse colon. Mildly dilated gas-filled loop of small bowel have also slightly improved. There is a large amount well-formed stool seen within the proximal colon. There is a right total hip arthroplasty. No renal calculi. No ureteral calculi. No pneumoperitoneum or pneumatosis. IMPRESSION: Interval placement of a colonic tube with the tip terminating in the expected location of the ascending colon. There is been interval decompression of the colon with the transverse colon measuring 11.7 cm in diameter.
[2019-11-21] MEDS ORDERED: Nursing to Pharmacy Communication SCH (15:15)
--- NOTE | 2019-11-21 18:34 | Hospitalist Progress Note ---
Date of Service November 21, 2019 Assessment & Plan (1) Colon distention: Presented with marked colonic distention. GI and General Surgery consulted. Colonoscopy with stent placement and decompression tube placement performed by Dr. Chou on 11/20/19 with improvement. 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 Methylnaltrexone ordered. (2) CAD (coronary artery disease): No anginal symptoms. Continue metoprolol. Resume aspirin. (3) Diastolic CHF: Compensated. Resume diuretics. (4) Chronic obstructive pulmonary disease: Pulmonary status stable. Continue inhalers. (5) Sleep apnea: Continue nocturnal O2. (6) Pulmonary nodule: Chest CT 11/02/19 demonstrated 13 mm spiculated RLL nodule. Follow-up & management per Pulmonary Medicine. (7) CKD (chronic kidney disease), stage IV: Serum creatinine at time of admission was 2.3, compared to recent baseline of 2.4 08/29/19. Creatinine today = 1.62. Follow. (8) Diabetes mellitus, type 2: DM type 2 complicated by CAD and CKD managed with insulin at home. Hgb A1c 6.8 on 08/29/19. FBS today = 111. Continue Lantus / NovoLog per protocol. (9) Bacteriuria: Urine culture growing Strep sp, but only 40,000 CFU. No fever. No urinary symptoms. Does not meet criteria for UTI. Does not require Rx at this time. (10) DVT prophylaxis: SCD's ordered. Add SQ heparin. Ambulate. (11) Discharge planning issues: Anticipated discharge to home. Family Medicine follow-up with Dr. Hatch. Cardiology follow-up with Dereje Wilcox PA-C. Pulmonary Medicine follow-up with Dr. Lino. Admission and Anticipated Discharge Date Admission Date: November 19, 2019 Subjective Recheck for multiple problems. Patient seen in their room around 1550. Feels much better since colonic decompression. No nausea, vomiting, abdominal pain. Still has rectal tube. Review of Systems: Constitutional- no fever. Cardiac- no chest pain. Pulmonary- no cough or SOB. GI- as noted above. - no urinary symptoms. Otherwise, as noted above. Physical Exam Constitutional: no acute distress out of bed to chair Respiratory: no respiratory distress Auscultation: lungs clear to auscult ation bilaterally Cardiovascular: Rate/Rhythm: regular rate and regular rhythm Vessels: no JVD Extremities: + edema (trace - 1+ pretibial edema); no calf tenderness Gastrointestinal (Abdomen): Inspection/Auscultation: + abdomen distended Percussion/Palpation: abdomen soft; abdomen nontender rectal tube Musculoskeletal: Extremities: no cyanosis Skin: no rashes, warm and dry Psychiatric: Orientation: alert and oriented x 3 Results & Data Results & Data ([facility]) Vital Signs (Past 12 Hours) Vital Signs Temp Pulse Resp BP BP Pulse Ox 11/21/19 15:01 36.9 C 75 18 105/54 L 93 11/21/19 13:24 88 18 96 11/21/19 11:02 36.7 C 56 L 18 118/71 98 11/21/19 07:56 90 18 94 11/21/19 07:14 36.5 C 86 20 117/68 95 Laboratory Results 11/21/19 05:24 11/21/19 05:24
[2019-11-21] MEDS: EUCERIN CR 120 GM JAR EXT SCH (22:22)
[2019-11-22] MEDS: ALBUT/IPRATROP 3MG/0.5MG NEB 3 ML VIAL NEB SCH ×4 (00:06→19:33)
[2019-11-22] MEDS: LAVAGE SOLUTION 4000ML PR SCH ×7 (01:48→13:06)
[2019-11-22 07:18] LABS: Hematocrit (blood only) 40.9 % (42-52); Mean Corpuscular Hemoglobin 31.1 pg (25-34); Mean Corpuscular Hgb Conc 31.8 g/dL (32-36); Mean Corpuscular Volume 97.8 fL (80-100); Platelet Count 149 K/uL (130-400); RDW Coefficient of Variation 15.2 % (11.5-14.5); RDW Standard Deviation 54.2 fL (36.4-46.3); Red Blood Count 4.18 M/uL (4.7-6.1)
[2019-11-22 07:28] LABS: Partial Thromboplastin Ratio 0.9; Partial Thromboplastin Time 26.1 Seconds (21.0-31.0); Prothrombin Time 10.9 Seconds (9.0-12.0)
[2019-11-22 08:07] LABS: Est GFR (African American) 52.9
[2019-11-22 08:08] LABS: BUN Creatinine Ratio 20.5 (10-20); Calcium 9.2 mg/dl (8.5-10.1); Creatinine Clr Calc Pharmacy 51.3 ml/min; Est GFR (Non-African American) 45.6
--- NOTE | 2019-11-22 08:08 | Gastroenterology Progress Note ---
Date of Service November 22, 2019 Assessment & Plan (1) Colon distention: Pt is a 74 y/o male w chronic constipation, on narcotics, evaluated for colonic distension. Non contrasted CT abd/pelvis showed gaseous distension on transverse colon 12.6cm, transition zone at level of splenic flexure. Labs w mild leukocytosis, no anion gap. He is s/p colonic decompression w rectal tube placement on 11/19. Abd soft on exam w/o tenderness, tolerating CL diet. - F/U KUB this AM - Goal to remove rectal tube this afternoon and monitor him for another day. - Avoid narcotics. Was on Tramadol daily and likely has narcotic ileus - FL diet for now. Admission and Anticipated Discharge Date Admission Date: November 19, 2019 Subjective Pt feels well, denies abd pain, n/v. Rectal tube still in place, been flushed w Golytely and draining liquid brown stools. Review of Systems Review of Systems: All systems reviewed & are unremarkable except as noted in HPI & below Physical Exam Constitutional: WD/WN, vitals as above well groomed, cooperative and comfortable Eyes: PERRL, conjunctivae normal, anicteric sclerae ENMT: external ear and nose normal, oropharynx normal Respiratory: normal respiratory effort, lungs clear to auscultation Cardiovascular: RRR, no murmur, no edema Gastrointestinal (Abdomen): Inspection/Auscultation: normal bowel sounds Percussion/Palpation: abdomen soft; abdomen nontender Skin: no jaundice Psychiatric: A+Ox3, euthymic affect Lymphatic: no lymphedema Results & Data ([facility]) Vital Signs (Past 12 Hours) Vital Signs Temp Pulse Resp BP Pulse Ox 11/22/19 07:41 36.3 C L 61 16 123/67 97 11/22/19 06:47 62 16 92 11/22/19 00:08 89 16 91 11/21/19 23:00 36.7 C 69 16 116/69 97
--- NOTE | 2019-11-22 09:28 | XRay Report ---
XR KUB/Abdomen 1 view CLINICAL HISTORY: re-eval colonic distension COMPARISON STUDY: 11/21/2019 FINDINGS: A colonic decompression tube is visualized. The tip projects at the level of the hepatic fl exure. There is no significant transverse or descending colonic distention. There is moderate right c olonic stool. There is suspected left-sided nephrolithiasis IMPRESSION: 1. Moderate right colonic stool 2. No evidence of transverse or descending colonic distention ACT 112: Negative or not required by law. Electronically signed by: Gopi Ramos M.D. 11/22/2019 9:27 AM
[2019-11-22] MEDS: FLUTICASONE/VILANTEROL 100/25MCG 14 PUFFS/INHALER INH SCH (09:39)
[2019-11-22] MEDS: FUROSEMIDE 80 MG TAB PO SCH ×2 (09:39→18:09)
[2019-11-22] MEDS: SPIRONOLACTONE 25 MG TAB PO SCH (09:39)
[2019-11-22] MEDS: ASPIRIN 81 MG ECTAB PO SCH (09:39)
[2019-11-22] MEDS: FINASTERIDE 5 MG TAB PO SCH (09:40)
[2019-11-22] MEDS: METOPROLOL SUCC 50MG EXT REL TAB PO SCH (09:40)
[2019-11-22] MEDS: ENALAPRIL MALEATE 5 MG TAB PO SCH (09:40)
[2019-11-22] MEDS: EUCERIN CR 120 GM JAR EXT SCH ×2 (09:40→21:33)
[2019-11-22] MEDS: INSULIN ASPART 100 UNITS/ML 3 ML PEN SC SCH ×4 (09:42→21:33)
[2019-11-22] MEDS: CALCITRIOL 0.25 MCG CAPSULE PO SCH (09:43)
[2019-11-22] MEDS: INSULIN GLARGINE SOLOSTAR 100 UNITS/ML 3 ML PEN SC SCH ×2 (09:43→21:33)
[2019-11-22] MEDS: HEPARIN SOD 5,000 UNIT/0.5 ML VIAL SQ SCH ×2 (09:43→21:32)
--- NOTE | 2019-11-22 09:58 | Surgery Progress Note ---
Date of Service November 22, 2019 Assessment & Plan (1) Colon distention: Post procedure day # 2 s/p colonoscopy with decompression and placement of colonic tube -avss - abd distention improved - no abd pain, n/v - liquid stool in decompression tube - Likely narcotic ileus?? - KUB this am showing no transverse or descending colon distention , moderate stool burden in right colon Plan: No acute surgical intervention required at this time continue clears, diet advancement per GI continue decompression tube, management per GI may need to consider oral Miralax given right colonic stool burden encourage ambulation avoid narcotics Dr. Shane has seen patient, agrees with above. Subjective sitting up in chair at bedside, sleeping no abdominal pain, no n/v tolerated clear liquids still has rectal tube which is having liquid stool output abdomen feels soft Physical Exam Constitutional: WD/WN, vitals as above + obese; no acute distress Gastrointestinal (Abdomen): Inspection/Auscultation: abdomen normal to inspection, + abdomen distended (mild) and normal bowel sounds Percussion/P alpation: abdomen soft; abdomen nontender, no guarding and abdomen not rigid Skin: no rashes, warm and dry Psychiatric: A+Ox3, euthymic affect Results & Data Vital Signs (Past 12 Hours) Vital Signs Temp Pulse Resp BP Pulse Ox 11/22/19 07:41 36.3 C L 61 16 123/67 97 11/22/19 06:47 62 16 92 11/22/19 00:08 89 16 91 11/21/19 23:00 36.7 C 69 16 116/69 97 Laboratory Results 11/22/19 11/22/19 11/22/19 Range/Units 08:14 06:59 06:59 WBC (4.8-10.8) K/uL RBC (4.7-6.1) M/uL Hgb (14.0-18.0) g/dL Hct (42-52) % MCV (80-100) fL MCH (25-34) pg MCHC (32-36) g/dL RDW Std Deviation (36.4-46.3) fL RDW Coeff of Josiah (11.5-14.5) % Plt Count (130-400) K/uL MPV (7.4-10.4) fL PT 10.9 (9.0-12.0) Seconds INR 1.0 (0.9-1.1) APTT 26.1 (21.0-31.0) Seconds PTT Ratio 0.9 Sodium 138 (136-145) mmol/L Potassium 4.0 (3.5-5.1) mmol/L Chloride 102 (98-107) mmol/L Carbon Dioxide 30 (21-32) mmol/L Anion Gap 6.0 (3-11) BUN 30 H (7-18) mg/dl Creatinine 1.48 H (0.6-1.4) mg/dl Est Cr Clr Drug Dosing 51.3 ml/min Est GFR ( Amer) 52.9 Est GFR (Non-Af Amer) 45.6 BUN/Creatinine Ratio 20.5 H (10-20) Glucose 92 (70-99) mg/dl POC Glucose 89 (70-99) mg/dl Calcium 9.2 (8.5-10.1) mg/dl Magnesium (1.8-2.4) mg/dl 11/22/19 11/21/19 11/21/19 Range/Units 06:59 21:23 17:19 WBC 13.40 H (4.8-10.8) K/uL RBC 4.18 L (4.7-6.1) M/uL Hgb 13.0 L (14.0-18.0) g/dL Hct 40.9 L (42-52) % MCV 97.8 (80-100) fL MCH 31.1 (25-34) pg MCHC 31.8 L (32-36) g/dL RDW Std Deviation 54.2 H (36.4-46.3) fL RDW Coeff of Josiah 15.2 H (11.5-14.5) % Plt Count 149 (130-400) K/uL MPV 10.0 (7.4-10.4) fL PT (9.0-12.0) Seconds INR (0.9-1.1) APTT (21.0-31.0) Seconds PTT Ratio Sodium (136-145) mmol/L Potassium (3.5-5.1) mmol/L Chloride (98-107) mmol/L Carbon Dioxide (21-32) mmol/L Anion Gap (3-11) BUN (7-18) mg/dl Creatinine (0.6-1.4) mg/dl Est Cr Clr Drug Dosing ml/min Est GFR ( Amer) Est GFR (Non-Af Amer) BUN/Creatinine Ratio (10-20) Glucose (70-99) mg/dl POC Glucose 141 H 116 H (70-99) mg/dl Calcium (8.5-10.1) mg/dl Magnesium (1.8-2.4) mg/dl 11/21/19 11/21/19 Range/Units 12:22 05:24 WBC (4.8-10.8) K/uL RBC (4.7-6.1) M/uL Hgb (14.0-18.0) g/dL Hct (42-52) % MCV (80-100) fL MCH (25-34) pg MCHC (32-36) g/dL RDW Std Deviation (36.4-46.3) fL RDW Coeff of Josiah (11.5-14.5) % Plt Count (130-400) K/uL MPV (7.4-10.4) fL PT (9.0-12.0) Seconds INR (0.9-1.1) APTT (21.0-31.0) Seconds PTT Ratio Sodium (136-145) mmol/L Potassium (3.5-5.1) mmol/L Chloride (98-107) mmol/L Carbon Dioxide (21-32) mmol/L Anion Gap (3-11) BUN (7-18) mg/dl Creatinine (0.6-1.4) mg/dl Est Cr Clr Drug Dosing ml/min Est GFR ( Amer) Est GFR (Non-Af Amer) BUN/Creatinine Ratio (10-20) Glucose (70-99) mg/dl POC Glucose 166 H (70-99) mg/dl Calcium (8.5-10.1) mg/dl Magnesium 2.5 H (1.8-2.4) mg/dl Diagnostic Findings XR KUB/Abdomen 1 view CLINICAL HISTORY: re-eval colonic distension COMPARISON STUDY: 11/21/2019 FINDINGS: A colonic decompression tube is visualized. The tip projects at the level of the hepatic flexure. There is no significant transverse or descending colonic distention. There is moderate right colonic stool. There is suspected l eft-sided nephrolithiasis IMPRESSION: 1. Moderate right colonic stool 2. No evidence of transverse or descending colonic distention
[2019-11-22] MEDS ORDERED: bisacodyL 5 MG TABEC PO SCH (21:00)
--- NOTE | 2019-11-22 22:15 | Hospitalist Progress Note ---
Date of Service November 22, 2019 Assessment & Plan (1) Colon distention: Presented with marked colonic distention. GI and General Surgery consulted. Colonoscopy with stent placement and decompression tube placement performed by Dr. Chou on 11/20/19 with improvement. 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 Received methylnaltrexone. Rectal tube management per GI. (2) CAD (coronary artery disease): No anginal symptoms. Continue aspirin and metoprolol. (3) Diastolic CHF: Compensated. Resumed diuretics. (4) Chronic obstructive pulmonary disease: Pulmonary status stable. Continue inhalers. (5) Sleep apnea: Continue nocturnal O2. (6) Pulmonary nodule: Chest CT 11/02/19 demonstrated 13 mm spiculated RLL nodule. Follow-up & management per Pulmonary Medicine. (7) CKD (chronic kidney disease), stage IV: Serum creatinine at time of admission was 2.3, compared to recent baseline of 2.4 08/29/19. Diuretics held, then resumed. Creatinine today = 1.48. Follow. (8) Diabetes mellitus, type 2: DM type 2 complicated by CAD and CKD managed with insulin at home. Hgb A1c 6.8 on 08/29/19. FBS today = 89. Continue Lantus / NovoLog per protocol. (9) Bacteriuria: Urine culture growing Strep sp, but only 40,000 CFU. No fever. No urinary symptoms. Does not meet criteria for UTI. Does not require Rx at this time. (10) DVT prophylaxis: SCD's ordered. Added SQ heparin. Ambulate. (11) Discharge planning issues: Anticipated discharge to home. Family Medicine follow-up with Dr. Hatch. Cardiology follow-up with Dereje Wilcox PA-C. Pulmonary Medicine follow-up with Dr. Lino. Admission and Anticipated Discharge Date Admission Date: November 19, 2019 Subjective Recheck for multiple problems. Patient seen in their room around 1110. Doing well. No nausea, vomiting, abdominal pain. Still has rectal tube. Review of Systems: Constitutional- no fever. Cardiac- no chest pain. Pulmonary- pulmonary symptoms at baseline; no cough or unusual SOB. GI- as noted above. - no urinary symptoms. Otherwise, as noted above. Physical Exam Constitutional: no acute distress Respiratory: no respiratory distress Auscultation: lungs clear to auscultation bilaterally Cardiovascular: Rate/Rhythm: regular rate and regular rhythm Vessels: no JVD Extremities: + edema (trace - 1+ pretibial edema); no calf tenderness Gastrointestinal (Abdomen): Inspection/Auscultation: + abdomen distended Percussion/Palpation: abdomen soft; abdomen nontender rectal tube Musculoskeletal: Extremities: no cyanosis Skin: no rashes, warm and dry Psychiatric: Orientation: alert and oriented x 3 Results & Data Results & Data ([facility]) Vital Signs (Past 12 Hours) Vital Signs Temp Pulse Resp BP Pulse Ox 11/22/19 19:35 84 18 92 11/22/19 15:14 36.7 C 76 18 119/69 95 11/22/19 13:16 101 H 16 93 Laboratory Results Laboratory Results - last 24 hr 11/22/19 11/22/19 11/22/19 06:59 06:59 06:59 WBC 13.40 H RBC 4.18 L Hgb 13.0 L Hct 40.9 L MCV 97.8 MCH 31.1 MCHC 31.8 L RDW Std Deviation 54.2 H RDW Coeff of Josiah 15.2 H Plt Count 149 MPV 10.0 PT 10.9 INR 1.0 APTT 26.1 PTT Ratio 0.9 Sodium 138 Potassium 4.0 Chloride 102 Carbon Dioxide 30 Anion Gap 6.0 BUN 30 H Creatinine 1.48 H Est Cr Clr Drug Dosing 51.3 Est GFR ( Amer) 52.9 Est GFR (Non-Af Amer) 45.6 BUN/Creatinine Ratio 20.5 H Glucose 92 POC Glucose Calcium 9.2 11/22/19 11/22/19 11/22/19 08:14 12:15 17:05 WBC RBC Hgb Hct MCV MCH MCHC RDW Std Deviation RDW Coeff of Josiah Plt Count MPV PT INR APTT PTT Ratio Sodium Potassium Chloride Carbon Dioxide Anion Gap BUN Creatinine Est Cr Clr Drug Dosing Est GFR ( Amer) Est GFR (Non-Af Amer) BUN/Creatinine Ratio Glucose POC Glucose 89 115 H 72 Calcium 11/22/19 20:39 WBC RBC Hgb Hct MCV MCH MCHC RDW Std Deviation RDW Coeff of Josiah Plt Count MPV PT INR APTT PTT Ratio Sodium Potassium Chloride Carbon Dioxide Anion Gap BUN Creatinine Est Cr Clr Drug Dosing Est GFR ( Amer) Est GFR (Non-Af Amer) BUN/Creatinine Ratio Glucose POC Glucose 108 H Calcium
[2019-11-23] MEDS: ALBUT/IPRATROP 3MG/0.5MG NEB 3 ML VIAL NEB SCH ×4 (00:36→17:39)
[2019-11-23] MEDS: INSULIN ASPART 100 UNITS/ML 3 ML PEN SC SCH ×4 (08:48→22:07)
[2019-11-23 08:49] LABS: BUN Creatinine Ratio 20.4 (10-20); Calcium 9.6 mg/dl (8.5-10.1); Creatinine Clr Calc Pharmacy 46.8 ml/min; Est GFR (African American) 47.4; Est GFR (Non-African American) 40.9
[2019-11-23] MEDS: INSULIN GLARGINE SOLOSTAR 100 UNITS/ML 3 ML PEN SC SCH (08:49)
[2019-11-23] MEDS: HEPARIN SOD 5,000 UNIT/0.5 ML VIAL SQ SCH (08:49)
[2019-11-23] MEDS: SPIRONOLACTONE 25 MG TAB PO SCH (08:51)
[2019-11-23] MEDS: ASPIRIN 81 MG ECTAB PO SCH (08:52)
[2019-11-23] MEDS: FLUTICASONE/VILANTEROL 100/25MCG 14 PUFFS/INHALER INH SCH (08:52)
[2019-11-23] MEDS: FINASTERIDE 5 MG TAB PO SCH (08:53)
[2019-11-23] MEDS: METOPROLOL SUCC 50MG EXT REL TAB PO SCH (08:54)
[2019-11-23] MEDS: CALCITRIOL 0.25 MCG CAPSULE PO SCH (08:54)
[2019-11-23] MEDS: ENALAPRIL MALEATE 5 MG TAB PO SCH (08:56)
--- NOTE | 2019-11-23 09:35 | XRay Report ---
XR KUB/Abdomen 1 view CLINICAL HISTORY: re-eval colon distension COMPARISON STUDY: 11/22/2019 FINDINGS: The colonic tube has been removed. There is evidence for colonic dilatation measuring up to 12 cm in diameter. IMPRESSION: Interval removal of the rectal tube with redevelopment of colonic dilatation ACT 112: Negative or not required by law. Electronically signed by: Gopi Ramos M.D. 11/23/2019 9:33 AM
--- NOTE | 2019-11-23 10:34 | Gastroenterology Progress Note ---
Date of Service November 23, 2019 Assessment & Plan (1) Colon distention: Pt is a 74 y/o male w chronic constipation, on narcotics, evaluated for colonic distension. Non contrasted CT abd/pelvis showed gaseous distension on transverse colon 12.6cm, transition zone at level of splenic flexure. Labs w mild leukocytosis, no anion gap. He is s/p colonic decompression w rectal tube placement on 11/19. Rectal tube removed 11/21 and colonic distension recur again. - Will give pt additional dose of Relistor 12mg subQ today - Keep NPO, plan on repeating colonic decompression by Dr. Chou today - Likely will transfer to tertiary care center for Colorectal Surgery eval, possible subtotal colectomy - Continue Miralax 17g BID and Dulcolax 10mg qHS - Avoid narcotics. Was on Tramadol daily and likely has narcotic ileus Admission and Anticipated Discharge Date Admission Date: November 19, 2019 Supervising Physician Co-Signing Physician Notes I saw and evaluated the patient. He appears to have developed recurrent distention of his colon overnight. He notes that he is passing no flatus or stool since removal of his rectal tube yesterday. Given the patient's history I think he may benefit from having an evaluation at a tertiary center which includes coverage with colorectal surgery. After discussion with the internal medicine service would like us to repeat colonic compression and placement of a decompression tube prior to transfer. Unfortunately the patient had a full liquid fist and was not deemed a candidate for colonoscopy in the endoscopy unit with anesthesia services. We are waiting the ability to do the procedure today. Recommendation Referral to a tertiary center Repeat dosing of Relistor today Subjective Rectal tube removed yesterday afternoon. Pt's KUB showed colonic distension to 12cm again. He denies n/v, abd pain. He did have 3 BMs after rectal tube removed yesterday. Denies flatus Review of Systems Review of Systems: All systems reviewed & are unremarkable except as noted in HPI & below Physical Exam Constitutional: WD/WN, vitals as above well groomed, cooperative and comfortable Eyes: PERRL, conjunctivae normal, anicteric sclerae ENMT: external ear and nose normal, oropharynx normal Respiratory: normal respiratory effort, lungs clear to auscultation Cardiovascular: RRR, no murmur, no edema Gastrointestinal (Abdomen): Inspection/Auscultation: + abdomen distended and + hypoactive bowel sounds Percussion/Palpation: abdomen nontender Skin: no jaundice Psychiatric: A+Ox3, euthymic affect Lymphatic: no lymphedema Results & Data ([facility]) Vital Signs (Past 12 Hours) Vital Signs Temp Pulse Resp BP Pulse Ox 11/23/19 07:35 36.6 C 85 18 106/64 95 11/23/19 07:16 88 16 93 11/23/19 00:36 88 16 92 11/22/19 23:06 36.4 C L 79 16 108/65 95
[2019-11-23] MEDS ORDERED: METHYLNALTREXONE BROMIDE 12 MG/0.6 ML VIAL SQ ONE (11:00)
--- NOTE | 2019-11-23 11:37 | Surgery Progress Note ---
Date of Service November 23, 2019 Assessment & Plan (1) Colon distention: Post procedure day # 3 s/p colonoscopy with decompression and placement of colonic tube - avss - no abd pain, n/v - Likely narcotic ileus - KUB this am showing colonic distention back to 12 cm since rectal tube removed yesterday Plan: No acute surgical intervention required at this time patient is completely asymptomatic, will await Gi recommendations given recurrent colonic distention after rectal tube removed. Avoid narcotics if pt needs surgery, pt should transfer to higher level care for colorectal surgeon, Dr. Conti covering this weekend Dr. Shane has seen and examined patient, agrees with above. Supervising Physician Co-Signing Physician Notes The patient notes that he feels much improved today. He is starting to s pontaneously passed some flatus but no stool yet. The rectal tube appears to be in place still. Overall based on the patient's history I wonder if he may have a narcotic induced ileus as he was on Ultram as an outpatient. Recommendations Liquid diet KUB in the morning Patient given a dose of Relistor for narcotic ileus Avoid use of narcotics in this patient Outpatient colonoscopy as the examination performed during this admission was not sufficient for colorectal cancer screening Subjective feeling great, would like to go home no abdominal pain, n/v tolerated full liquids had 3 loose bowel movements after rectal tube removed yesterday, not passing flatus Rectal tube removed yesterday afternoon. Pt's KUB showed colonic distension to 12cm again. He denies n/v, abd pain. He did have 3 BMs after rectal tube removed yesterday. Denies flatus Review of Systems Constitutional: as per Subjective / HPI Eyes: as per Subjective / HPI Ear, Nose, Mouth, Throat: as per Subjective / HPI Respiratory: as per Subjective / HPI COPD Cardiovascular: as per Subjective / HPI Additional Comments: S/P CABG, PA, Gastrointestinal: as per Subjective / HPI SBO, diarrhea, abdominal pain, Genitourinary: + as per Subjective / HPI and + problem reported (JOAN, renal calculi) Musculoskeletal: as per Subjective / HPI Integumentary: as per Subjective / HPI Neurologic: as per Subjective / HPI Psychiatric: as per Subjective / HPI Endocrine: as per Subjective / HPI Hematologic / Lymphatic: as per Subjective / HPI Physical Exam Constitutional: WD/WN, vitals as above well developed and well nourished; not ill appearing Eyes: PERRL, conjunctivae normal, anicteric sclerae ENMT: external ear and nose normal, oropharynx normal Neck: trachea midline, no thyromegaly trachea midline Respiratory: normal respiratory effort, lungs clear to auscultation normal respiratory effort Cardiovascular: RRR, no murmur, no edema Rate/Rhythm: regular rate and regular rhythm Heart Sounds: normal S1 and normal S2 Gastrointestinal (Abdomen): normal bowel sounds, soft, nontender, no hepatosplenomegaly Inspection/Auscultation: abdomen normal to inspection and + abdomen distended Percussion/Palpation: abdomen soft; abdomen nontender, no guarding and abdomen not rigid Musculoskeletal: no cyanosis or clubbing, extremities motor strength 5/5 Skin: no rashes, warm and dry Neurologic: patellar DTR's 2+ bilat, sensation intact Psychiatric: A+Ox3, euthymic affect Orientation: alert and oriented x 3 Results & Data Vital Signs (Past 12 Hours) Vital Signs Temp Pulse Resp BP Pulse Ox 11/23/19 07:35 36.6 C 85 18 106/64 95 11/23/19 07:16 88 16 93 11/23/19 00:36 88 16 92 Laboratory Results 11/23/19 11/23/19 11/22/19 Range/Units 08:21 07:42 20:39 Sodium 136 (136-145) mmol/L Potassium 4.0 (3.5-5.1) mmol/L Chloride 99 (98-107) mmol/L Carbon Dioxide 29 (21-32) mmol/L Anion Gap 8.0 (3-11) BUN 33 H (7-18) mg/dl Creatinine 1.62 H (0.6-1.4) mg/dl Est Cr Clr Drug Dosing 46.8 ml/min Est GFR ( Amer) 47.4 Est GFR (Non-Af Amer) 40.9 BUN/Creatinine Ratio 20.4 H (10-20) Glucose 87 (70-99) mg/dl POC Glucose 87 108 H (70-99) mg/dl Calcium 9.6 (8.5-10.1) mg/dl 11/22/19 11/22/19 Range/Units 17:05 12:15 Sodium (136-145) mmol/L Potassium (3.5-5.1) mmol/L Chloride (98-107) mmol/L Carbon Dioxide (21-32) mmol/L Anion Gap (3-11) BUN (7-18) mg/dl Creatinine (0.6-1.4) mg/dl Est Cr Clr Drug Dosing ml/min Est GFR ( Amer) Est GFR (Non-Af Amer) BUN/Creatinine Ratio (10-20) Glucose (70-99) mg/dl POC Glucose 72 115 H (70-99) mg/dl Calcium (8.5-10.1) mg/dl Diagnostic Findings XR KUB/Abdomen 1 view CLINICAL HISTORY: re-eval colon distension COMPARISON STUDY: 11/22/2019 FINDINGS: The colonic tube has been removed. There is evidence for colonic dilatation measuring up to 12 cm in diameter. IMPRESSION: Interval removal of the rectal tube with redevelopment of colonic dilatation
[2019-11-23] MEDS: FUROSEMIDE 80 MG TAB PO SCH (12:43)
[2019-11-23] MEDS ORDERED: ERYTHROMYCIN 250 MG in SODIUM CHLORIDE 0.9% 250 ML IV ONE (13:45)
[2019-11-23] MEDS ORDERED: MINERAL OIL 30 ML UDC ONE ×2 (14:30→19:22)
[2019-11-23] MEDS: EUCERIN CR 120 GM JAR EXT SCH ×2 (17:40→22:06)
[2019-11-23] MEDS: POLYETHYLENE (MIRALAX) 17 GM PACK PO SCH ×2 (17:40→22:06)
--- NOTE | 2019-11-23 18:04 | Anesthesiology Consultation ---
Date of Service November 23, 2019 Assessment & Plan (1) Encounter for pre-operative examination: Chart Review Chart Review: Acceptable Risk for Surgery and Patient NOT seen in Pre Admission Testing covid 19 prescreen 11/19/2019 was negative. Consults Requested none History Surgery Operation Date: 11/20/19 13:30 Proposed Procedures p Colonoscopy with Stent Placement - Blaze Chou Operation Date: 11/23/19 14:45 Proposed Procedures p Colonoscopy with Rectal Tube Placement - Blaze Chou Operation Date: 11/23/19 16:00 Proposed Procedures p Colonoscopy with Decompression Dr José Antonio Chou Height/Weight Height: 5 ft 8 in Weight: 107.5 kg Allergies Allergy/AdvReac Type Severity Reaction Status Date / Time No Known Allergies Allergy U Verified 11/19/19 15:52 Medications Home Medications Medication Instructions Recorded Confirmed Last Taken Lantus U-100 Insulin 30 - 40 unit SUBCUT QPM 03/08/18 11/19/19 11/18/19 albuterol sulfate 2.5 mg INHALATION QID PRN 03/08/18 11/19/19 11/19/19 allopurinol 450 mg PO QAM 03/08/18 11/19/19 11/19/19 aspirin [Aspirin Low Dose] 81 mg PO QAM 03/08/18 11/19/19 11/19/19 atorvastatin 40 mg PO HS 03/08/18 11/19/19 11/18/19 calcitriol 0.25 mcg PO QAM 03/08/18 11/19/19 11/19/19 colchicine 0.6 mg PO DAILY PRN 03/08/18 11/19/19 03/08/18 12:00 finasteride 5 mg PO QAM 03/08/18 11/19/19 11/19/19 furosemide 80 mg PO BID 03/08/18 11/19/19 11/19/19 insulin aspart U-100 [Novolog 1 dose SUBCUT TIDM 03/08/18 11/19/19 11/19/19 Flexpen U-100 Insulin] 20 units ipratropium bromide 2.5 ml INHALATION QID PRN 03/08/18 11/19/19 11/19/19 metoprolol succinate 50 mg PO QAM 03/08/18 11/19/19 11/19/19 omeprazole 40 mg PO QAM 03/08/18 11/19/19 11/19/19 ramipril 1.25 mg PO QAM 03/08/18 11/19/19 11/19/19 spironolactone 25 mg PO QAM 03/08/18 11/21/19 11/19/19 tramadol 50 mg PO Q6H PRN 03/08/18 11/19/19 11/18/19 prednisone 10 mg PO QAM 11/19/19 11/19/19 11/19/19 Active Medications Generic Name Dose Route Start Last Admin Trade Name Frearie PRN Reason Stop Dose Admin Albuterol 3 ml 11/19/19 20:22 11/23/19 17:39 Duoneb NEB 12/19/19 20:21 3 ml Q6R DAMON Administration Aspirin 81 mg 11/22/19 09:00 11/23/19 08:52 Ecotrin Ectab PO 12/22/19 08:59 81 mg QAM DAMON Administration Bisacodyl 10 mg 11/22/19 21:00 11/22/19 21:33 Dulcolax PO 12/22/19 20:59 10 mg HS DAMON Administration Calcitriol 0.25 mcg 11/21/19 09:00 11/23/19 08:54 Rocaltrol PO 12/21/19 08:59 0.25 mcg QAM DAMON Administration Enalapril Maleate 5 mg 11/21/19 09:00 11/23/19 08:56 Vasotec PO 12/21/19 08:59 5 mg QAM DAMON Administration Finasteride 5 mg 11/21/19 09:00 11/23/19 08:53 Proscar PO 12/21/19 08:59 5 mg QAM DAMON Administration Fluticasone/Vilanterol 1 puffs 11/20/19 09:00 11/23/19 08:52 Breo Ellipta 100/25 Mcg Inh INH 12/20/19 08:59 Not Given DAILY DAMON Protocol Furosemide 80 mg 11/22/19 09:00 11/23/19 12:43 Lasix PO 12/22/19 08:59 Not Given BID17 DAMON Heparin Sodium (Porcine) 5,000 units 11/22/19 09:00 11/23/19 08:49 Heparin Sodium (Porcine) SQ 12/22/19 08:59 5,000 units Q12 DAMON Administration Insulin Aspart 0 units 11/19/19 21:00 11/23/19 18:01 Novolog Flexpen SC 12/19/19 20:59 Not Given ACHS DAMON Insulin Glargine 15 units 11/19/19 21:00 11/23/19 08:49 Lantus Solostar Pen SC 12/19/19 20:59 15 units BID DAMON Administration Metoprolol Succinate 50 mg 11/21/19 09:00 11/23/19 08:54 Toprol Xl PO 12/21/19 08:59 50 mg QAM DAMON Administration Multi-Ingredient Cream 1 appln 11/21/19 21:00 11/23/19 17:40 Hydrocerin EXT 12/21/19 20:59 1 appln BID DAMON Administration Polyethylene Glycol 17 gm 11/23/19 10:45 11/23/19 17:40 Miralax Powder Packet PO 12/23/19 10:44 Not Given BID DAMON Spironolactone 25 mg 11/22/19 09:00 11/23/19 08:51 Aldactone PO 12/22/19 08:59 25 mg QAM DAMON Administration NPO Date Last Intake of Fluids: 11/19/19 Time Last Intake of Fluids: 10:00 Date Last Intake of Solids: 11/19/19 Time Last Intake of Solids: 10:00 Past Medical History Medical History BPH (benign prostatic hyperplasia) CAD (coronary artery disease) Last cardiac cath 08/09/2011 and demonstrated severe [place] vessel disease and an occluded SVG to the OM2. All other grafts noted to be patent at that time. 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 MCKINNEY (STAGE 3-4) Chronic obstructive pulmonary disease Emphysema Congestive heart failure chronic combined systolic and diastolic EF 45% 2011 Depression H/O -- NO MEDS CURRENTLY Diabetes mellitus, type 2 IDDM Diastolic CHF Dyslipidemia GERD (gastroesophageal reflux disease) Gout History of colon polyps HTN (hypertension) MRSA (methicillin resistant Staphylococcus aureus) Per infection control, 02/2018: "Patient has a history of MRSA in a wound and a nasal screen in 2014. Patient requires contact precautions." Myocardial Infarction 2004 - CABG X5 VESSELS. Subsequent caths with stenting 2005 and 2006. Obesity On home oxygen therapy 2LPM VIA N/C AT HS Pulmonary nodule Sleep apnea O2 AT NIGHT Exercise / Class Metabolic Activity III < 4 Walking/Shop/Light housework Past Family History Family History Other No family history of adverse response to anesthesia Past Surgical History Surgical History H/O lithotripsy x 2 History of bronchoscopy x2, last 02/2018--benign right lower lobe lesion History of cardiac cath 2006 PCI of LCx 2007 PCI of LAD 2012 severe [place] vessel dz and an occluded SVG to OM2 graft. All other grafts patent. History of colonoscopy History of coronary artery bypass graft X5 VESSELS AT [facility] 2004 History of esophagogastroduodenoscopy (EGD) History of total hip arthroplasty RIGHT HIP -- WITH MULTIPLE REVISIONS Past Anesthesia History No Hx of Anesthesia Complications and No Family Hx of Anesthesia Complications History of PONV No Hx of PONV and No Hx of Motion Sickness Social History Smoking Status: Former smoker tobacco type: cigarettes Smoking cigarettes per day: 60 Smoking End Date: 2004 Hx Alcohol Use: No Hx Substance Use: No substance use type: does not use Physical Exam Vital Signs Last Vital Signs Temp 36.9 C 11/23/19 15:41 Pulse 84 11/23/19 17:42 Resp 18 11/23/19 17:42 BP 108/65 11/23/19 15:41 Pulse Ox 96 11/23/19 17:42 Testing Laboratory Results 11/22/19 06:59 11/23/19 07:42 PT 10.9 Seconds (9.0-12.0) 11/22/19 06:59 INR 1.0 (0.9-1.1) 11/22/19 06:59 APTT 26.1 Seconds (21.0-31.0) 11/22/19 06:59 Urine Color Yellow 11/19/19 15:25 Urine Appearance Clear (Clear) 11/19/19 15:25 Urine pH 7.0 (4.5-7.5) 11/19/19 15:25 Ur Specific [place] 1.010 (1.000-1.030) 11/19/19 15:25 Urine Protein Negative (Negative) 11/19/19 15:25 Urine Glucose (UA) Negative (Negative) 11/19/19 15:25 Urine Ketones Negative (Negative) 11/19/19 15:25 Urine Nitrite Negative (Negative) 11/19/19 15:25 Ur Leukocyte Esterase 2+ (Negative) H 11/19/19 15:25 Urine WBC (Auto) 10-30 /hpf (0-5) H 11/19/19 15:25 Urine RBC (Auto) 0-4 /hpf (0-4) 11/19/19 15:25 U Hyaline Cast (Auto) 0 /lpf (0-5) 11/19/19 15:25 U Epithel Cells (Auto) 10-20 /lpf (0-5) H 11/19/19 15:25 Urine Bacteria (Auto) Negative (Negative) 11/19/19 15:25 11/19/19 15:25 Urine Culture - Final Urine,Clean Catch Enterococcus faecalis 11/23/19 11/23/19 11/23/19 17:51 11:59 08:21 POC Glucose 89 129 H 87 Electrocardiogram Date: 11/19/19 Findings: + NSR @ (88) Unusual P axis, possible ectopic atrial rhythm with Premature atrial complexes with Aberrant conduction Low voltage QRS Borderline ECG When compared with ECG of 13-SEP-2016 06:44, Confirmed by Alex Howell ([id number]) on 11/19/2019 2:40:07 PM Other Testing Electrocardiogram Date: 03/07/18 Findings: + NSR @ (94) SR with occasional PVC and PACs Prolonged QT interval or tu fusion ?, consider myocardial disease, electrolyte imbalance, or drug effect. Abnormal ECG When compared with ECG of 18-MAR-2017 15:23 PVC are now present. PAC now present. Pulmonary Function Test Date: 04/17/18 Pre-bronchodilator spirometry reveals a [id number] obstructive ventilatory defect even more pronounced at low lung volumes. There was an excellent response to bronchodilator suggesting a reversible airways component. Lung volume measurements demonstrate evidence for significant hyperinflation and air trapping. Diffusion capacity was well within normal limits. Clinical correlation is needed. Other Testing Chest CT (09/15/18) MPRESSION: 1. Cardiomegaly and emphysema. 2. There is a 14 mm spiculated nodule in the right lower lobe. This has increased in size over several prior examinations and should be considered lung cancer until proven otherwise. 3. A chronic loculated pleural collection with associated pleural change at the left lung base is similar to previous. 4. There is no airspace consolidation typical for pneumonia. 5. Mild diffuse peribronchial thickening suggests reactive air disease. Clinical correlation will be required. 6. Additional findings as above.
[2019-11-23] MEDS ORDERED: LIDOCAINE HCL 2% 2 ML VIAL/AMP(20MG/ML) INFIL ONE (18:39)
[2019-11-23] MEDS ORDERED: PROPOFOL IV EMULSION 10 MG/ML 20 ML VIAL IV ONE ×2 (18:39→19:39)
[2019-11-23] MEDS ORDERED: ONDANSETRON INJ 2 MG/ML 2 ML VIAL IV PRN (18:40)
[2019-11-23] MEDS ORDERED: ePHEDrine sulfate 50 MG/ML AMP IV PRN (18:40)
[2019-11-23] MEDS ORDERED: fentaNYL citrate 100 MCG/2 ML VIAL IV PRN (18:40)
[2019-11-23] MEDS ORDERED: HYDROmorphone INJ 1 MG/ML SYRINGE IV PRN (18:40)
[2019-11-23] MEDS ORDERED: ATROPINE SULFATE 0.1 MG/ML 10ML SYR IV PRN (18:40)
--- NOTE | 2019-11-23 18:43 | History & Physical Bridge Note ---
Date of Service November 23, 2019 History & Physical Bridge Note I have examined the patient, reviewed the History & Physical and in the interval since the performance of the History & Physical I have noted the following changes of clinical significance: no changes noted. Due to recurrence of his colonic dilation we are planning to do colonoscopic decompression this evening with placement of a rectal tube. Given the patient's recurrence of his symptoms and medical history I wonder if he will be best served at a tertiary Medical Center as he is not felt to be a good surgical candidate at our center.
--- NOTE | 2019-11-23 19:37 | Hospitalist Progress Note ---
Date of Service November 23, 2019 Assessment & Plan (1) Colon distention: Presented with marked abdominal distention. CT demonstrated distended colon measuring up to 12.6 cm with possible transition zone at splenic flexure but no mass appreciated. GI and General Surgery consulted. Colonoscopy with decompression and rectal tube placement performed by Dr. Chou on 11/20/19 with improvement of exam and symptoms. Colonoscopy revealed distended colon from ascending colon to sigmoid without apparent mass / obstruction (exam limited due to lack of prep). 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 Received methylnaltrexone and polyethylene glycol. Tolerated clear liquids and advanced to full liquids. Rectal tube removed and patient had a few BM's. However, developed recurrent abdominal distention within 24 hours and KUB shows recurrent colonic distention up to 12 cm. Repeat colonoscopy performed 11/23/19 for decompression and replacement of rectal tube. Again, no polyps were seen but bowel was not prepped and exam was limited. Neostigmine discussed, but felt that pt high risk due to underlying ischemic heart disease. GI recommends transfer to tertiary care to Colorectal Surgery service for further evaluation and management. (2) CAD (coronary artery disease): No anginal symptoms. Continue aspirin and metoprolol. (3) Diastolic CHF: Compensated. Titrate diuretics. (4) Chronic obstructive pulmonary disease: Pulmonary status stable. Continue inhalers. (5) Sleep apnea: Continue nocturnal O2. (6) Pulmonary nodule: Chest CT 11/02/19 demonstrated 13 mm spiculated RLL nodule. Follow-up & management per Pulmonary Medicine. (7) CKD (chronic kidney disease), stage IV: Serum creatinine at time of admission was 2.3, compared to recent baseline of 2.4 08/29/19. Diuretics held, then resumed. Creatinine today = 1.62. Follow and titrate fluids / diuretics. (8) Diabetes mellitus, type 2: DM type 2 complicated by CAD and CKD managed with insulin at home. Hgb A1c 6.8 on 08/29/19. FBS today = 87. Continue Lantus / NovoLog per protocol. (9) Bacteriuria: Urine culture growing Strep sp, but only 40,000 CFU. No fever. No urinary symptoms. Does not meet criteria for UTI. Does not require Rx at this time. (10) DVT prophylaxis: SCD's ordered. Added SQ heparin. Ambulate. (11) Discharge planning issues: GI recommending transfer to tertiary care. Discussed case with Dr. Driver (Colorectal Surgery at [facility]) who kindly accepted the patient in transfer. Family Medicine follow-up with Dr. Hatch. Cardiology follow-up with Dereje Wilcox PA-C. Pulmonary Medicine follow-up with Dr. Lino. given update by phone. Admission and Anticipated Discharge Date Admission Date: November 19, 2019 Subjective Recheck for colonic distention and other problems. Patient seen in their room around 2019. Rectal tube removed yesterday. Had a few BM's after tube removed. More distended this morning. Follow-up KUB showed recurrent colonic distention measuring up to 12 cm. Repeat colonoscopy for decompression and replacement of rectal tube performed this evening by Dr. Chou. Pt feels well after procedure- less bloated, no pain, nausea, vomiting. Review of Systems: Constitutional- no fever. Cardiac- no chest pain. Pulmonary- pulmonary symptoms at baseline; no cough or unusual SOB. GI- as noted above. - no urinary symptoms. Otherwise, as noted above. Physical Exam Constitutional: no acute distress Respiratory: no respiratory distress Auscultation: lungs clear to auscultation bilaterally Cardiovascular: Rate/Rhythm: regular rate and regular rhythm Vessels: no JVD Extremities: + edema (trace - 1+ pretibial edema); no calf tenderness Gastrointestinal (Abdomen): Inspection/Auscultation: + abdomen distended Percussion/Palpation: abdomen soft; abdomen nontender rectal tube Musculoskeletal: Extremities: no cyanosis Skin: no rashes, warm and dry Psychiatric: Orientation: alert and oriented x 3 Results & Data Results & Data ([facility]) Vital Signs (Past 12 Hours) Vital Signs Temp Pulse Resp BP BP Pulse Ox 11/23/19 18:36 36.3 C L 88 20 136/69 96 11/23/19 17:42 84 18 96 11/23/19 15:41 36.9 C 85 18 108/65 96 11/23/19 07:35 36.6 C 85 18 106/64 95 Laboratory Results 11/22/19 06:59 11/23/19 07:42
--- NOTE | 2019-11-23 19:49 | GI REPORT ---
Patient Name: Godwin Hidalgo Procedure Date: 11/23/2019 6:48 PM Date of : 1945 Admit Type: Inpatient Age: 74 Gender: Male Attending MD: Blaze Chou DO Procedure: Colonoscopy Providers: Blaze Chou DO Referring MD: Blayne Burciaga Indications: Epigastric abdominal pain, Abnormal abdominal x-ray of the GI tract, repeat colonic decompression Medicines: Monitored Anesthesia Care Complications: No immediate complications. Estimated blood loss: Minimal. Estimated Blood Loss: Estimated blood loss was minimal. Procedure: Pre-Anesthesia Assessment: - Prior to the procedure, a History and Physical was performed, and patient medications, allergies and sensitivities were reviewed. The patient's tolerance of previous anesthesia was reviewed. - The risks and benefits of the procedure and the sedation options and risks were discussed with the patient. All questions were answered and informed consent was obtained. - Patient identification and proposed procedure were verified prior to the procedure by the physician, the nurse and the air cargo specialist. The procedure was verified in the pre-procedure area in the procedure room. - Pre-procedure physical examination revealed no contraindications to sedation. - ASA Grade Assessment: IV - A patient with severe systemic disease that is a constant threat to life. - After reviewing the risks and benefits, the patient was deemed in satisfactory condition to undergo the procedure. - The anesthesia plan was to use monitored anesthesia care (MAC). - Immediately prior to administration of medications, the patient was re-assessed for adequacy to receive sedatives. - The heart rate, respiratory rate, oxygen saturations, blood pressure, adequacy of pulmonary ventilation, and response to care were monitored throughout the procedure. - The physical status of the patient was re-assessed after the procedure. After I obtained informed consent, the scope was passed under direct vision. Throughout the procedure, the patient's blood pressure, pulse, and oxygen saturations were monitored continuously.The colonoscopy was performed without difficulty. The patient tolerated the procedure well. The quality of the bowel preparation was poor, mucosal evaluation was poor. Polyps could have been missed. The scope was introduced through the anus and advanced to the ascending colon for evaluation. This was the intended extent order to provide colonic decompression.. Findings: The digital rectal exam findings include non-thrombosed external hemorrhoids. Pertinent negatives include normal sphincter tone. Internal hemorrhoids were found during retroflexion. The hemorrhoids were moderate. The lumen of the colon (entire examined portion) was moderately dilated. No obvious stricture or mass was seen, however, the examination was limited due to the patient's poor preparation. A large amount of semi-liquid semi-solid stool was found in the entire colon, precluding visualization. Fluid aspiration was performed through the scope suction channel. Sample(s) were sent for Clostridium difficile. A colonic decompression tube was placed. Impression: - Preparation of the colon was poor. - Non-thrombosed external hemorrhoids found on digital rectal exam. - Internal hemorrhoids. - Dilated in the entire examined colon. - Stool in the entire examined colon. Fluid aspiration performed. Recommendation: - Return patient to hospital pham for ongoing care. - Consider referral to tertiary center for colorectal surgery evaluation. - Patient will benefit from a repeat colonoscopy with a good bowel preparation once able to tolerate p.o. - Colyte 100 ml every 2 hours via rectal tube Blaze Chou D.O. Blaze Chou, 11/23/2019 7:48:50 PM This report has been signed electronically. Note Initiated On: 11/23/2019 6:48 PM Number of Addenda: 0 I attest to the content of the Intraoperative Record and orders documented therein, exceptions below {[id number]}
--- NOTE | 2019-11-23 19:51 | Post Operative Brief Note ---
Immediate Post Op Note v1 Date of Surgery November 23, 2019 Pre & Post Diagnosis Operation Date: 11/20/19 13:30 Pre-Op Diagnosis: COLONIC DISTENTION Post-Op Diagnosis: COLONIC DISTENTION Operation Date: 11/23/19 14:45 Pre-Op Diagnosis: Colonic Distention Post-Op Diagnosis: Colonic Distention, unclear of etiology, decompression tube placed Operation Date: 11/23/19 16:00 <No data on this case meets the specified criteria> I identified the patient and participated in the time-out.: Yes Procedure Operation Date: 11/20/19 13:30 Actual Procedures p Colonoscopy with Stent Placement and decompression tube placement - Blaze Chou Operation Date: 11/23/19 14:45 Actual Procedures p Colonoscopy with Rectal Tube Placement(Not Applicable) - Blaze Chou Operation Date: 11/23/19 16:00 <No data on this case meets the specified criteria> Surgeon Blaze Chou Pillow Cleaner none Estimated Blood Loss 0 Findings Consistent with Post-Op Diagnosis Drains Rectal Tube
--- NOTE | 2019-11-23 19:55 | Communication Note ---
Date of Service: November 23, 2019 The patient underwent a repeat colonic decompression due to recurrence of his colonic dilation and symptoms of abdominal distention. There was no obvious etiology based on today's colonoscopy however, the patient's bowel preparation was insufficient to evaluate for evidence of polyps no obvious strictures or masses were seen during today's examination Recommendations Give Colyte 100 mL via rectal tube every 2 hours for 1 day Daily KUB Recommend referral to a tertiary care center
--- NOTE | 2019-11-23 20:03 | Anesthesiology Progress Note ---
Date of Service November 23, 2019 Anesthesia Post Procedure Vital Signs Vital Signs: Temp Pulse Pulse Resp BP BP Pulse Ox 11/23/19 19:55 92 H 18 123/63 98 11/23/19 19:47 36.0 C L 82 20 122/65 100 11/23/19 18:36 36.3 C L 88 20 136/69 96 11/23/19 17:42 84 18 96 11/23/19 15:41 36.9 C 85 18 108/65 96 11/23/19 07:35 36.6 C 85 18 106/64 95 11/23/19 07:16 88 16 93 11/23/19 00:36 88 16 92 11/22/19 23:06 36.4 C L 79 16 108/65 95 Transfer of Care Handoff Completed per policy Notes Mental Status: alert / awake / arousable and participated in evaluation Patient Amnestic to Procedure: Yes Nausea / Vomiting: adequately controlled Pain: adequately controlled Airway Patency, RR, SpO2: stable & adequate BP & HR: stable & adequate Hydration State: stable & adequate Anesthetic Complications: no major complications apparent and Pt Satisfied with anesthetic care
--- NOTE | 2019-11-23 20:21 | Discharge Summary ---
Date of Service Date of Admission: 11/19/19 Date of Discharge: 11/23/19 (anticipated) Admission HPI Per Admitting Provider Pt is 74 y/o M with PMH COPD, HTN, CAD s/p CABG x5 in 2004, s/p stent in 2005 & 2006, dyslipidemia, CKD IV, insulin-dependent DM II, gastroparesis, Anthony's esophagus presented to ER for abdominal distention. Patient reports chronic constipation with intermittent watery outflow and abdominal distention which has been increasing. Had outpatient CT scan showing colonic distention. Saw GI today and was referred to ER for further evaluation. Patient reports had small watery BM this morning. Denies any nausea, vomiting. Patient with history of COPD, follows with Dr. Lino. 11/13/2019 seen at pulmonology clinic and treated for COPD exacerbation with 8-day prednisone taper, Z-Freeman. Patient reports finished Z-Freeman and has 2 days remaining of prednisone. He feels like his breathing is at baseline currently. Also following with pulmonology for probable pulmonary malignancy, patient not surgical candidate per Dr. Lino. Reports no recent worsening extremity edema. Denies COVID exposure, recent travel, fever/chills, diaphoresis, MARQUIS, dizziness, syncope, vision changes, neck pain, CP, orthopnea, palpitations, cough, sore throat, choking, otalgia, rhinorrhea, paresthesias, weakness, extremity weakness, rashes, urinary symptoms. 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 pseudo-obstruction Discharge Data Allergies Allergy/AdvReac Type Severity Reaction Status Date / Time No Known Allergies Allergy U Verified 11/19/19 15:52 Consultations 11/19/19 15:55 Consult General Surgery Stat 11/19/19 16:18 ED Decision to Admit Stat 11/19/19 20:22 Consult Case Management - Discharge Planning Routine Consult Gastroenterology Routine Consult General Surgery Routine 11/23/19 18:38 Burn CD for patient Routine Procedures Performed Operation Date: 11/20/19 13:30 Actual Procedures p Colonoscopy with Stent Placement and decompression tube placement - Blaze Chou Operation Date: 11/23/19 14:45 Actual Procedures p Colonoscopy with Rectal Tube Placement(Not Applicable) - Blaze Chou Operation Date: 11/23/19 16:00 <No data on this case meets the specified criteria> Ordered Studies 11/19/19 15:00 CT abd pelvis wo con Stat 11/20/19 12:00 FL KUB Routine FL fluoroscopy <1hr Routine Hospital Course (1) Colon distention: Presented with marked abdominal distention. CT demonstrated distended colon measuring up to 12.6 cm with possible transition zone at splenic flexure but no mass appreciated. GI and General Surgery consulted. Colonoscopy with decompression and rectal tube placement performed by GI (Dr. Chou) on 11/20/19. Colonoscopy revealed distended colon from ascending colon to sigmoid without apparent mass / obstruction (exam limited due to lack of prep). (Brief op note 11/20/19 mentions stent placement, but no stent was placed.) [place] to have colonic pseudo-obstruction, possibly due to chronic tramadol use. Received methylnaltrexone and polyethylene glycol. Exam and symptoms improved. Tolerated clear liquids and advanced to full liquids. Rectal tube removed 11/22/19 and patient had a few BM's. However, developed recurrent abdominal distention within 24 hours and KUB shows recurrent colonic distention up to 12 cm. Repeat colonoscopy performed evening of 11/23/19 for decompression and replacement of rectal tube. Again, no polyps were seen but bowel was not prepped and exam was limited. Neostigmine discussed, but felt that pt high risk due to underlying ischemic heart disease. GI recommended transfer to tertiary care to Colorectal Surgery service for further evaluation and management. (2) CAD (coronary artery disease): No anginal symptoms. Continue aspirin and metoprolol. (3) Diastolic CHF: Compensated. Titrate diuretics. (4) Chronic obstructive pulmonary disease: Pulmonary status stable. Continue inhalers. (5) Sleep apnea: Continue nocturnal O2. (6) Pulmonary nodule: Chest CT 11/02/19 demonstrated 13 mm spiculated RLL nodule. Follow-up & management per Pulmonary Medicine. (7) CKD (chronic kidney disease), stage IV: Serum creatinine at time of admission was 2.3, compared to recent baseline of 2.4 08/29/19. Diuretics held, then resumed. Creatinine today = 1.62. Follow and titrate fluids / diuretics. (8) Diabetes mellitus, type 2: DM type 2 complicated by CAD and CKD managed with insulin at home. Hgb A1c 6.8 on 08/29/19. FBS today = 87. Continue Lantus / NovoLog per protocol. (9) Bacteriuria: Urine culture growing Strep sp, but only 40,000 CFU. No fever. No urinary symptoms. Does not meet criteria for UTI. Does not require Rx at this time. (10) COVID-19 ruled out: SARS-CoV-2 PCR negative on 11/19/19. (11) DVT prophylaxis: SCD's ordered. Added SQ heparin- last dose morning of 11/23/19. Ambulate. (12) Discharge planning issues: GI recommended transfer to tertiary care. Discussed case with Dr. Driver (Colorectal Surgery at [facility]) who kindly accepted the patient in transfer. Family Medicine follow-up with Dr. Hatch. Cardiology follow-up with Dereje Wilcox PA-C. Pulmonary Medicine follow-up with Dr. Lino. Home Medications Lantus U-100 Insulin 30 - 40 unit SUBCUT QPM 03/08/18 [History Confirmed 11/19/19] albuterol sulfate 2.5 mg INHALATION QID PRN 03/08/18 [History Confirmed 11/19/19] allopurinol 450 mg PO QAM 03/08/18 [History Confirmed 11/19/19] aspirin [Aspirin Low Dose] 81 mg PO QAM 03/08/18 [History Confirmed 11/19/19] atorvastatin 40 mg PO HS 03/08/18 [History Confirmed 11/19/19] calcitriol 0.25 mcg PO QAM 03/08/18 [History Confirmed 11/19/19] colchicine 0.6 mg PO DAILY PRN 03/08/18 [History Confirmed 11/19/19] finasteride 5 mg PO QAM 03/08/18 [History Confirmed 11/19/19] furosemide 80 mg PO BID 03/08/18 [History Confirmed 11/19/19] insulin aspart U-100 [Novolog Flexpen U-100 Insulin] 1 dose SUBCUT TIDM 03/08/18 [History Confirmed 11/19/19] ipratropium bromide 2.5 ml INHALATION QID PRN 03/08/18 [History Confirmed 11/19/19] metoprolol succinate 50 mg PO QAM 03/08/18 [History Confirmed 11/19/19] omeprazole 40 mg PO QAM 03/08/18 [History Confirmed 11/19/19] ramipril 1.25 mg PO QAM 03/08/18 [History Confirmed 11/19/19] spironolactone 25 mg PO QAM 03/08/18 [History Confirmed 11/21/19] tramadol 50 mg PO Q6H PRN 03/08/18 [History Confirmed 11/19/19] Active Inpatient Medications Acetaminophen (Tylenol) 650 mg PO Q6H PRN PRN Reason: Fever Stop: 12/20/19 05:53 Albuterol (Duoneb) 3 ml NEB Q6R [facility] Stop: 12/19/19 20:21 Last Admin: 11/23/19 17:39 Dose: 3 ml Documented by: Aspirin (Ecotrin Ectab) 81 mg PO QAM [facility] Stop: 12/22/19 08:59 Last Admin: 11/23/19 08:52 Dose: 81 mg Documented by: [facility]citri[facility] ([facility]) [facility] Stop: 12/21/19 08:59 Last Admin: 11/23/19 08:54 Dose: 0.25 mcg Documented by: Colchicine (Colcrys) 0.6 mg PO DAILY PRN PRN Reason: gout flare up Stop: 12/20/19 21:10 Dextrose (Dextrose 50%) 25 - 50 ml IV UD PRN; Protocol PRN Reason: Hypoglycemia Protocol Stop: 12/19/19 20:21 Enalapril Maleate (Vasotec) 5 mg PO [facility] Stop: 12/21/19 08:59 Last Admin: 11/23/19 08:56 Dose: 5 mg Documented by: Finasteride (Proscar) [facility] Stop: 12/21/19 08:59 Last Admin: 11/23/19 08:53 Dose: 5 mg Documented by: Fluticasone/Vilanterol (Breo Ellipta 100/25 Mcg Inh) 1 puffs INH DAILY [facility]; Protocol Stop: 12/20/19 08:59 Last Admin: 11/23/19 08:52 Dose: Not Given Documented by: Furosemide (Lasix) 80 mg PO BID17 [facility] Stop: 12/22/19 08:59 Last Admin: 11/23/19 12:43 Dose: Not Given Documented by: Glucagon (Glucagen) 1 mg SQ UD PRN; Protocol PRN Reason: Hypoglycemia Protocol Stop: 12/19/19 20:21 Glucose (Dex4 Glucose) 4 - 8 tabs PO UD PRN; Protocol PRN Reason: Hypoglycemia Protocol Stop: 12/19/19 20:21 Glucose (Glucose 40%) 15 - 30 gm PO UD PRN; Protocol PRN Reason: Hypoglycemia Protocol Stop: 12/19/19 20:21 Heparin Sodium (Porcine) (Heparin Sodium (Porcine)) 5,000 units SQ Q12 [facility] Stop: 12/22/19 08:59 Last Admin: 11/23/19 08:49 Dose: 5,000 units Documented by: Insulin Aspart (Novolog Flexpen) 0 units SC ACHS [facility] Stop: 12/19/19 20:59 Last Admin: 11/23/19 18:01 Dose: Not Given Documented by: Insulin Glargine (Lantus Solostar Pen) 15 units SC BID [facility] Stop: 12/19/19 20:59 Last Admin: 11/23/19 08:49 Dose: 15 units Documented by: Metoprolol Succinate (Toprol Xl) 50 mg PO QAM [facility] Stop: 12/21/19 08:59 Last Admin: 11/23/19 08:54 Dose: 50 mg Documented by: Miscellaneous (Carbohydrates For Hypoglycemia) 15 - 30 gm PO UD PRN PRN Reason: Hypoglycemia Protocol Stop: 12/19/19 20:21 Multi-Ingredient Cream (Hydrocerin) 1 appln EXT BID [facility] Stop: 12/21/19 20:59 Last Admin: 11/23/19 17:40 Dose: 1 appln Documented by: Polyethylene Glycol (Miralax Powder Packet) 17 gm PO BID [facility] Stop: 12/23/19 10:44 Last Admin: 11/23/19 17:40 Dose: Not Given Documented by: Spironolactone (Aldactone) 25 mg PO QAM [facility] Stop: 12/22/19 08:59 Last Admin: 11/23/19 08:51 Dose: 25 mg Documented by: [email or web address] @ 100 mls/hr Total Time Total Time Spent Total Time Spent (In Minutes): 60 Discharge Plan Discharge Items Patient Disposition: Transfer Acute Care Hospital Reason For Visit: abdominal bloating Discharge Diagnosis: colonic pseudo-obstruction Activity: Resume your previous activity Non-emergency contact: Primary Care Provider, Hospitalist and Candy Department Manager Call non-emergency contact if: you have any medication questions and your symptoms worsen Follow-up/Referrals: Neri Hatch MD [Primary Care Provider] - Diet: Other - See Diet Comment Diet Comment: currently NPO; AHA / diabetic diet when resumed Addtl Attending Provider Instructions: Rectal tube- gravity drainage. VTE prophylaxis: SCD's SQ heparin 5000 units SQ q 12 hrs- last dose 0849 on 11/23/19. Please see current inpatient meds at end of hospital course discussion in discharge summary. Diagnostic images sent to [employer] PACS for review. Images burned to CD or DVD will accompany the patient as well. Thank you for receiving this patient in transfer. Please call or TigerText if you have any questions. Blayne Burciaga Pending Studies at Discharge: No Stand-Alone Forms: My [facility] Skilled Items Patient informed of condition?: Yes Discharge Level of Care: Other Communicable Disease: No Discharge Prognosis: Stable Lines: Peripheral IV Urinary Catheter: No Medications and DC Order Prescriptions: Continued budesonide-formoterol [Symbicort] 160-4.5 mcg/actuation HFA aerosol inhaler 2 puff inhalation BID RF: 0 atorvastatin 40 mg Tablet 40 mg PO HS RF: 0 Lantus U-100 Insulin 100 unit/mL Solution 30 - 40 unit SUBCUT QPM RF: 0 albuterol sulfate 2.5 mg /3 mL (0.083 %) Solution For Nebulization 2.5 mg INHALATION QID PRN (Reason: copd) RF: 0 metoprolol succinate 50 mg Tablet Extended Release 24 Hr 50 mg PO QAM RF: 0 omeprazole 40 mg Capsule,Delayed Release(Dr/Ec) 40 mg PO QAM RF: 0 aspirin [Aspirin Low Dose] 81 mg Tablet,Delayed Release (Dr/Ec) 81 mg PO QAM RF: 0 tramadol 50 mg Tablet 50 mg PO Q6H PRN (Reason: Pain) RF: 0 spironolactone 25 mg Tablet 25 mg PO QAM RF: 0 furosemide 80 mg Tablet 80 mg PO BID RF: 0 allopurinol 300 mg Tablet 450 mg PO QAM RF: 0 calcitriol 0.25 mcg Capsule 0.25 mcg PO QAM RF: 0 finasteride 5 mg Tablet 5 mg PO QAM RF: 0 ramipril 1.25 mg Capsule 1.25 mg PO QAM RF: 0 ipratropium bromide 0.02 % Solution 2.5 ml INHALATION QID PRN (Reason: Wheezing) RF: 0 insulin aspart U-100 [Novolog Flexpen U-100 Insulin] 100 unit/mL Insulin Pen 1 dose SUBCUT TIDM RF: 0 colchicine 0.6 mg Capsule 0.6 mg PO DAILY PRN (Reason: GOUT FLARE UP) RF: 0 Admission Data Admit Date/Time: 11/19/19 16:52 Attending Provider: Blayne Burciaga Admit Provider: Lukas Hinojosa Primary Care Provider: Neri Hatch Other Providers: Usha Shane ; Yara Juan ; Lukas Hinojosa ; Magan Mina
[2019-11-23] MEDS ORDERED: D5W AND LACTATED RINGERS 1,000 ML IV SCH (20:45)
== END 2019-11-23 23:48 | disposition short-term general hospital (02) | DRG 392 ==
LOC: ED 13:44 → SUATTDRO 16:52 → 2W 16:52 → 3W 11-20 20:12

== ENCOUNTER 2020-01-25 15:17 | Inpatient (IN) ==
[2020-01-25] MEDS ORDERED: methylPREDNISolone 125 MG/2 ML VIAL IV STA (17:50)
--- NOTE | 2020-01-25 17:58 | Emergency Department Note ---
History of Present Illness General Chief complaint: Shortness of Breath/Dyspnea Stated complaint: SOB Time Seen by Provider: 01/25/20 17:35 Source: patient History of Present Illness Provider complaint: Shortness of breath Onset (ago): week(s) Location: chest Severity: moderate Pain Consistency: + intermittent Quality: + other (Difficulty breathing) Relieved By: + other (Nebulizers) Exacerbated By: + other (Exertion) Associated symptoms: no chest pain, no cough, no fever/chills, no headaches and no nausea/vomiting This is a 74-year-old male who had a partial colon resection December 20 who has had shortness of breath since then. He states that his shortness of breath has gotten worse over the past 2 days. It is worse with any exertion. It is slight ly better with his nebulizers. He does take 20 mg of prednisone daily for it. He denies any chest discomfort or pain or upper back pain. He denies any history of PE or DVT. He does have chronic swelling to his legs which is unchanged. He also has 2 ulcers on his left leg which are also chronic. He denies any fever or cough and had a negative COVID test prior to his surgery in November. He is followed by Dr. Lino of pulmonology. He has had normal colostomy output. He has no urinary symptoms. He does have a history of kidney problems. He denies any vomiting. Home Medications Home Medications Medication Instructions Recorded Confirmed Type Lantus U-100 Insulin 30 - 40 unit SUBCUT QPM 03/08/18 01/25/20 History albuterol sulfate 2.5 mg INHALATION QID PRN 03/08/18 01/25/20 History allopurinol 450 mg PO QAM 03/08/18 01/25/20 History aspirin [Aspirin Low Dose] 81 mg PO QAM 03/08/18 01/25/20 History atorvastatin 40 mg PO HS 03/08/18 01/25/20 History calcitriol 0.25 mcg PO QAM 03/08/18 01/25/20 History colchicine 0.6 mg PO DAILY PRN 03/08/18 01/25/20 History finasteride 5 mg PO QAM 03/08/18 01/25/20 History furosemide 80 mg PO BID 03/08/18 01/25/20 History insulin aspart U-100 [Novolog 1 dose SUBCUT TIDM 03/08/18 01/25/20 History Flexpen U-100 Insulin] ipratropium bromide 2.5 ml INHALATION QID PRN 03/08/18 01/25/20 History metoprolol succinate 50 mg PO QAM 03/08/18 01/25/20 History omeprazole 40 mg PO QAM 03/08/18 01/25/20 History ramipril 1.25 mg PO QAM 03/08/18 01/25/20 History spironolactone 25 mg PO QAM 03/08/18 01/25/20 History tramadol 50 mg PO Q6H PRN 03/08/18 01/25/20 History prednisone 20 mg PO QAM 01/25/20 01/25/20 History Allergies Allergy/AdvReac Type Severity Reaction Status Date / Time No Known Allergies Allergy U Verified 01/25/20 18:40 Past Med/Surg History Medical History BPH (benign prostatic hyperplasia) CAD (coronary artery disease) Last cardiac cath 08/09/2011 and demonstrated severe [place] vessel disease and an occluded SVG to the OM2. All other grafts noted to be patent at that time. 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 MCKINNEY (STAGE 3-4) Chronic obstructive pulmonary disease Emphysema Congestive heart failure chronic combined systolic and diastolic EF 45% 2011 Depression H/O -- NO MEDS CURRENTLY Diabetes mellitus, type 2 IDDM Diastolic CHF Dyslipidemia GERD (gastroesophageal reflux disease) Gout History of colon polyps HTN (hypertension) MRSA (methicillin resistant Staphylococcus aureus) Per infection control, 02/2018: "Patient has a history of MRSA in a wound and a nasal screen in 2014. Patient requires contact precautions." Myocardial Infarction 2004 - CABG X5 VESSELS. Subsequent caths with stenting 2005 and 2006. Obesity On home oxygen therapy 2LPM VIA N/C AT HS Pulmonary nodule Sleep apnea O2 AT NIGHT Surgical History H/O lithotripsy x 2 History of bronchoscopy x2, last 02/2018--benign right lower lobe lesion History of cardiac cath 2006 PCI of LCx 2007 PCI of LAD 2011 severe [place] vessel dz and an occluded SVG to OM2 graft. All other grafts patent. History of colonoscopy History of coronary artery bypass graft X5 VESSELS AT [facility] 2004 History of esophagogastroduodenoscopy (EGD) History of total hip arthroplasty RIGHT HIP -- WITH MULTIPLE REVISIONS Family History Other No family history of adverse response to anesthesia Social History Smoking Status: Former smoker Tobacco Type: Cigarettes Cigarettes Per Day: 60; Second Hand Exposure: Yes (parents smoked); Hx Alcohol Use: No Hx Substance Use: No Preferred Language: Gabonese Communication Ability: Effective Welt Treater Required: No Beliefs That Will Affect Care: None marital status: Current Living Situation: Spouse Feels Safe at Home: Yes Review of Systems See HPI for pertinent positives & negatives. and A total of 10 systems reviewed and were otherwise negative Physical Exam Vital Signs Vital Signs - 24 hr 01/25/20 15:19 01/25/20 15:26 01/25/20 18:15 Temperature 37.1 C Temperature Source Oral Pulse Rate 88 Pulse Rate [Apical] 80 Pulse Rate from SpO2 Sensor Pulse Rhythm Regular Pulse Rhythm [Apical] Regular Pulse Strength Normal Pulse Strength [Apical] Normal Respiratory Rate 18 20 Respiratory Effort / Characteristics Non-Labored Spontaneous Non-Labored Spontaneous Respiratory Depth Normal Normal Respiratory Pattern Regular Regular Blood Pressure 126/68 Blood Pressure [Left Arm] 123/64 Blood Pressure Mean 87 Blood Pressure Mean [Left Arm] 83 Blood Pressure Position Sitting Blood Pressure Position [Left Arm] Sitting Pulse Oximetry 98 98 98 Oxygen Delivery Method Room Air Room Air Room Air Sepsis Recent Fever Within 48 Hours No Sepsis New/Unexplained Change in Mental Status No Sepsis Action Taken by Nursing No Action Required 01/25/20 18:22 01/25/20 19:50 01/25/20 19:51 Temperature Temperature Source Pulse Rate Pulse Rate [Apical] 85 98 H Pulse Rate from SpO2 Sensor Pulse Rhythm Pulse Rhythm [Apical] Pulse Strength Pulse Strength [Apical] Respiratory Rate 21 16 Respiratory Effort / Characteristics Non-Labored Non-Labored Spontaneous Respiratory Depth Normal Respiratory Pattern Blood Pressure Blood Pressure [Left Arm] 130/72 Blood Pressure Mean Blood Pressure Mean [Left Arm] 91 Blood Pressure Position Blood Pressure Position [Left Arm] Sitting Pulse Oximetry 98 97 97 Oxygen Delivery Method Room Air Room Air Room Air Sepsis Recent Fever Within 48 Hours Sepsis New/Unexplained Change in Mental Status Sepsis Action Taken by Nursing 01/25/20 20:00 01/25/20 22:12 Temperature Temperature Source Pulse Rate 86 88 Pulse Rate [Apical] Pulse Rate from SpO2 Sensor 87 87 Pulse Rhythm Pulse Rhythm [Apical] Pulse Strength Pulse Strength [Apical] Respiratory Rate 18 15 Respiratory Effort / Characteristics Respiratory Depth Respiratory Pattern Blood Pressure 125/60 108/59 L Blood Pressure [Left Arm] Blood Pressure Mean 75 73 Blood Pressure Mean [Left Arm] Blood Pressure Position Blood Pressure Position [Left Arm] Pulse Oximetry 100 95 Oxygen Delivery Method Nebulizer Room Air Sepsis Recent Fever Within 48 Hours Sepsis New/Unexplained Change in Mental Status Sepsis Action Taken by Nursing Constitutional: Vital signs reviewed. Eyes: Pupils are equal round reactive to light. Conjunctiva are noninjected. ENT: Pharynx is clear without erythema or exudate. Mucous membranes are moist. Neck supple without meningeal signs. Respiratory: Fair air entry bilaterally without significant wheezing. Breath sounds are equal bilaterally. Cardiovascular: Regular rate and rhythm. No rubs or gallops. GI: Soft, nondistended and nontender. Colostomy on the right side with brown stool. No blood. Midline incision appears to be healing well without signs of infection. Bowel sounds are present. Musculoskeletal: Bilateral lower extremity edema with 2 ulcers in the anterior surface of the left leg. Mild erythema bilaterally without increased warmth. Integumentary: No cyanosis. or jaundice. Neurological: The patient is awake and alert. No focal deficits. Psychiatric: Normal affect. Not anxious appearing. Course Administered Medications Discontinued Medications Albuterol (Albut/Ipratrop 3mg/0.5mg Neb 3 Ml Vial) 3 ml NEB NOW STA Stop: 01/25/20 19:43 Last Admin: 01/25/20 19:51 Dose: 3 ml Documented by: [id number] Methylprednisolone (Methylprednisolone 125 Mg/2 Ml Vial) 125 mg IV NOW STA Stop: 01/25/20 17:51 Last Admin: 01/25/20 18:10 Dose: 125 mg Documented by: [id number] Medical Decision Making Differential Diagnosis COPD exacerbation, CHF exacerbation, DVT, PE, ACS, anemia Medical Records Attestation: I reviewed the patient's medical records. The patient was admitted to the hospital in November for acute megacolon. 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 Home Medications Current Medication List: was personally reviewed by me Laboratory Data Attestation: I reviewed the patient's lab results. Result diagrams: 01/25/20 18:10 01/25/20 18:10 Lab Results 01/25/20 01/25/20 01/25/20 Range/Units 18:10 18:10 18:10 WBC 11.58 H (4.8-10.8) K/uL RBC 3.59 L (4.7-6.1) M/uL Hgb 11.2 L (14.0-18.0) g/dL Hct 35.0 L (42-52) % MCV 97.5 (80-100) fL MCH 31.2 (25-34) pg MCHC 32.0 (32-36) g/dL RDW Std Deviation 55.2 H (36.4-46.3) fL RDW Coeff of Josiah 15.4 H (11.5-14.5) % Plt Count 227 (130-400) K/uL MPV 10.8 H (7.4-10.4) fL Immature Gran % (Auto) 1.3 % Neut % (Auto) 84.8 % Lymph % (Auto) 8.9 % [place] % (Auto) 5.0 % Eos % (Auto) 0.0 % Baso % (Auto) 0.0 % Neut # (Auto) 9.82 H (1.4-6.5) K/uL Lymph # (Auto) 1.03 L (1.2-3.4) K/uL [place] # (Auto) 0.58 (0.11-0.59) K/uL Eos # (Auto) 0.00 (0-0.5) K/uL Baso # (Auto) 0.00 (0-0.2) K/uL Immature Gran # (Auto) 0.15 H (0.00-0.02) K/uL PT 10.5 (9.0-12.0) Seconds INR 1.0 (0.9-1.1) APTT 22.2 (21.0-31.0) Seconds PTT Ratio 0.8 Sodium 133 L (136-145) mmol/L Potassium 5.3 H (3.5-5.1) mmol/L Chloride 95 L (98-107) mmol/L Carbon Dioxide 30 (21-32) mmol/L Anion Gap 8.0 (3-11) BUN 53 H (7-18) mg/dl Creatinine 2.55 H (0.6-1.4) mg/dl Est Cr Clr Drug Dosing 29.8 ml/min Est GFR ( Amer) 27.4 Est GFR (Non-Af Amer) 23.6 BUN/Creatinine Ratio 20.8 H (10-20) Glucose 182 H (70-99) mg/dl Calcium 8.9 (8.5-10.1) mg/dl Total Bilirubin 0.3 (0.2-1) mg/dl AST 8 L (15-37) U/L ALT 23 (12-78) U/L Alkaline Phosphatase 130 H (45-117) U/L Troponin I < 0.015 (0-0.045) ng/ml NT-Pro-B Natriuret Pep 2212 H (0-900) pg/ml Total Protein 6.5 (6.4-8.2) gm/dl Albumin 3.3 L (3.4-5.0) gm/dl Globulin 3.2 (2.5-4.0) gm/dl Albumin/Globulin Ratio 1.0 (0.9-2) Urine Color Urine Appearance (Clear) Urine pH (4.5-7.5) Ur Specific [place] (1.000-1.030) Urine Protein (Negative) Urine Glucose (UA) (Negative) Urine Ketones (Negative) Urine Blood (Negative) Urine Nitrite (Negative) Urine Bilirubin (Negative) Urine Urobilinogen (Negative) Ur Leukocyte Esterase (Negative) Urine WBC (Auto) (0-5) /hpf Urine RBC (Auto) (0-4) /hpf U Hyaline Cast (Auto) (0-5) /lpf U Epithel Cells (Auto) (0-5) /lpf Urine Bacteria (Auto) (Negative) 01/25/20 Range/Units 18:14 WBC (4.8-10.8) K/uL RBC (4.7-6.1) M/uL Hgb (14.0-18.0) g/dL Hct (42-52) % MCV (80-100) fL MCH (25-34) pg MCHC (32-36) g/dL RDW Std Deviation (36.4-46.3) fL RDW Coeff of Josiah (11.5-14.5) % Plt Count (130-400) K/uL MPV (7.4-10.4) fL Immature Gran % (Auto) % Neut % (Auto) % Lymph % (Auto) % [place] % (Auto) % Eos % (Auto) % Baso % (Auto) % Neut # (Auto) (1.4-6.5) K/uL Lymph # (Auto) (1.2-3.4) K/uL [place] # (Auto) (0.11-0.59) K/uL Eos # (Auto) (0-0.5) K/uL Baso # (Auto) (0-0.2) K/uL Immature Gran # (Auto) (0.00-0.02) K/uL PT (9.0-12.0) Seconds INR (0.9-1.1) APTT (21.0-31.0) Seconds PTT Ratio Sodium (136-145) mmol/L Potassium (3.5-5.1) mmol/L Chloride (98-107) mmol/L Carbon Dioxide (21-32) mmol/L Anion Gap (3-11) BUN (7-18) mg/dl Creatinine (0.6-1.4) mg/dl Est Cr Clr Drug Dosing ml/min Est GFR ( Amer) Est GFR (Non-Af Amer) BUN/Creatinine Ratio (10-20) Glucose (70-99) mg/dl Calcium (8.5-10.1) mg/dl Total Bilirubin (0.2-1) mg/dl AST (15-37) U/L ALT (12-78) U/L Alkaline Phosphatase (45-117) U/L Troponin I (0-0.045) ng/ml NT-Pro-B Natriuret Pep (0-900) pg/ml Total Protein (6.4-8.2) gm/dl Albumin (3.4-5.0) gm/dl Globulin (2.5-4.0) gm/dl Albumin/Globulin Ratio (0.9-2) Urine Color Yellow Urine Appearance Clear (Clear) Urine pH 7.5 (4.5-7.5) Ur Specific [place] 1.008 (1.000-1.030) Urine Protein Negative (Negative) Urine Glucose (UA) Negative (Negative) Urine Ketones Negative (Negative) Urine Blood Negative (Negative) Urine Nitrite Negative (Negative) Urine Bilirubin Negative (Negative) Urine Urobilinogen Negative (Negative) Ur Leukocyte Esterase 2+ H (Negative) Urine WBC (Auto) 10-30 H (0-5) /hpf Urine RBC (Auto) 0-4 (0-4) /hpf U Hyaline Cast (Auto) 1-5 (0-5) /lpf U Epithel Cells (Auto) 5-10 H (0-5) /lpf Urine Bacteria (Auto) Negative (Negative) Imaging Data Radiologist's Impression: XR chest 1V portable CLINICAL HISTORY: Dyspnea COMPARISON STUDY: 03/10/2018 FINDINGS: There are postsurgical changes of a midline sternotomy. The heart is enlarged. There is equivocal pulmonary vascular congestion. Subtle retrocardiac airspace opacities cannot be excluded. There is a small chronic left pleural effusion IMPRESSION: 1. Cardiomegaly 2. Emphysema 3. Equivocal mild pulmonary vascular congestion 4. Subtle retrocardiac airspace opacities cannot be excluded. 5. Small chronic left pleural effusion ACT 112: Negative or not required by law. Electronically signed by: Gopi Ramos M.D. 01/25/2020 6:34 PM US venous doppler LE BI CLINICAL HISTORY: Bilateral leg swelling. Possible DVT. COMPARISON STUDY: July 2014 FINDINGS: Real-time and color flow Doppler imaging were performed. Flow was seen within the femoral, popliteal and calf veins with no intraluminal thrombus demon strated. The saphenous vein is patent. There is prominent pulsatility within the femoral waveforms suggesting elevated right heart pressures IMPRESSION: No evidence of lower extremity DVT. ACT 112: Negative or not required by law. Electronically signed by: Gopi Ramos M.D. 01/25/2020 7:34 PM Dictated: 01/25/201932 Transcribed: 01/25/201932 ECG Data Attestation: I personally reviewed and interpreted this ECG as follows: Indication: + SOB/dyspnea Rate (beats per minute): 92 ECG [place]: + Left axis deviation ECG ST segments: no ST elevation ECG Findings: + PACs; no PVCs Blood Pressure Blood Pressure Findings: Elevated blood pressure Blood Pressure Disposition: Referred to patients primary care provider [facility] Narrative I did evaluate the patient as noted above. IV access was established. I did treat him with Solu-Medrol IV. I did place an order for continuous cardiac monitoring. The monitor showed normal sinus rhythm at a rate of 85 bpm. I did order and personally review the patient's 12-lead EKG as described above. He has no acute ischemic changes on EKG. I did order and personally reviewed the images of the patient's chest x-ray as described above. I did order a urine analysis. I did order and review the patient's blood work as noted in the [facility] medical record. He has anemia. He has acute on chronic kidney injury with a potassium of 5.3. He was given a DuoNeb. I did treat him with normal saline IV. I did order Doppler ultrasound of the bilateral lower extremities. I did review the images myself as well as the radiology report as described above. There is no evidence of DVT. I did reassess the patient. He has no wheezing on examination. His air entry is improved. He does subjectively feel better. I did recommend hospitalization for further care and evaluation as well as possible VQ scanning given his worsening of shortness of breath and recent surgery. CT angiogram is not indicated given his kidney injury. I did discuss the case with the hospitalist and watch case polisher. Impression & Plan Acute kidney injury superimposed on chronic kidney disease, Acute dyspnea, Acute hyperkalemia, Acute exacerbation of chronic obstructive pulmonary disease (COPD), Anemia Discharge Plan Visit Data Chief Complaint: Shortness of Breath/Dyspnea Stated Complaint: SOB ED Provider: Brent Mantilla Discharge Problem: Acute kidney injury superimposed on chronic kidney disease, Acute dyspnea, Acute hyperkalemia, Acute exacerbation of chronic obstructive pulmonary disease (COPD), Anemia Patient Disposition: Being Evaluated by Hospitalist Forms Stand Alone Forms: My [facility] Prescriptions Prescriptions: No Action [id number] [Trelegy Ellipta] 100-62.5-25 mcg blister with device 1 inh inhalation QAM RF: 0 atorvastatin 40 mg Tablet 40 mg PO HS RF: 0 Lantus U-100 Insulin 100 unit/mL Solution 30 - 40 unit SUBCUT QPM RF: 0 albuterol sulfate 2.5 mg /3 mL (0.083 %) Solution For Nebulization 2.5 mg INHALATION QID PRN (Reason: copd) RF: 0 metoprolol succinate 50 mg Tablet Extended Release 24 Hr 50 mg PO QAM RF: 0 omeprazole 40 mg Capsule,Delayed Release(Dr/Ec) 40 mg PO QAM RF: 0 aspirin [Aspirin Low Dose] 81 mg Tablet,Delayed Release (Dr/Ec) 81 mg PO QAM RF: 0 tramadol 50 mg Tablet 50 mg PO Q6H PRN (Reason: Pain) RF: 0 spironolactone 25 mg Tablet 25 mg PO QAM RF: 0 furosemide 80 mg Tablet 80 mg PO BID RF: 0 allopurinol 300 mg Tablet 450 mg PO QAM RF: 0 calcitriol 0.25 mcg Capsule 0.25 mcg PO QAM RF: 0 finasteride 5 mg Tablet 5 mg PO QAM RF: 0 ramipril 1.25 mg Capsule 1.25 mg PO QAM RF: 0 ipratropium bromide 0.02 % Solution 2.5 ml INHALATION QID PRN (Reason: Wheezing) RF: 0 insulin aspart U-100 [Novolog Flexpen U-100 Insulin] 100 unit/mL Insulin Pen 1 dose SUBCUT TIDM RF: 0 colchicine 0.6 mg Capsule 0.6 mg PO DAILY PRN (Reason: GOUT FLARE UP) RF: 0 prednisone 20 mg Tablet 20 mg PO QAM RF: 0 Referrals Referrals: Neri Hatch MD [Primary Care Provider] -
[2020-01-25 18:24] LABS: Hemoglobin 11.2 g/dL (14.0-18.0); Immature Granulocytes # (auto) 0.15 K/uL (0.00-0.02); Immature Granulocytes % (auto) 1.3 %; Lymphocytes # (auto) 1.03 K/uL (1.2-3.4); Lymphocytes % (auto) 8.9 %; Mean Corpuscular Hemoglobin 31.2 pg (25-34); Mean Corpuscular Volume 97.5 fL (80-100); Mean Platelet Volume 10.8 fL (7.4-10.4); Monocytes # (auto) 0.58 K/uL (0.11-0.59); Neutrophils # (auto) 9.82 K/uL (1.4-6.5); Neutrophils % (auto) 84.8 %; Platelet Count 227 K/uL (130-400); RDW Coefficient of Variation 15.4 % (11.5-14.5); RDW Standard Deviation 55.2 fL (36.4-46.3); Red Blood Count 3.59 M/uL (4.7-6.1); White Blood Count 11.58 K/uL (4.8-10.8)
[2020-01-25 18:29] LABS: Appearance Urine Clear (Clear); Bacteria Urine Automated Negative (Negative); Bilirubin Urine Negative (Negative); Blood Urine Negative (Negative); Color Urine Yellow; Glucose Urine UA Negative (Negative); Ketones Urine Negative (Negative); Leukocyte Esterase Urine 2+ (Negative); Nitrite Urine Negative (Negative); Protein Urine Negative (Negative); RBC Urine Automated 0-4 /hpf (0-4); Specific Gravity Urine 1.008 (1.000-1.030); Urobilinogen Urine Negative (Negative); pH Urine 7.5 (4.5-7.5)
[2020-01-25 18:36] LABS: Partial Thromboplastin Ratio 0.8; Partial Thromboplastin Time 22.2 Seconds (21.0-31.0); Prothrombin Time 10.5 Seconds (9.0-12.0)
--- NOTE | 2020-01-25 18:36 | XRay Report ---
XR chest 1V portable CLINICAL HISTORY: Dyspnea COMPARISON STUDY: 03/10/2018 FINDINGS: There are postsurgical changes of a midline sternotomy. The heart is enlarged. There is equ ivocal pulmonary vascular congestion. Subtle retrocardiac airspace opacities cannot be excluded. Ther e is a small chronic left pleural effusion IMPRESSION: 1. Cardiomegaly 2. Emphysema 3. Equivocal mild pulmonary vascular congestion 4. Subtle retrocardiac airspace opacities cannot be excluded. 5. Small chronic left pleural effusion ACT 112: Negative or not required by law. Electronically signed by: Gopi Ramos M.D. 01/25/2020 6:34 PM
[2020-01-25 18:44] LABS: Alanine Aminotransferase 23 U/L (12-78); Albumin Level 3.3 gm/dl (3.4-5.0); Aspartate Aminotransferase 8 U/L (15-37); BUN Creatinine Ratio 20.8 (10-20); Blood Urea Nitrogen 53 mg/dl (7-18); Calcium 8.9 mg/dl (8.5-10.1); Carbon Dioxide 30 mmol/L (21-32); Chloride 95 mmol/L (98-107); Creatinine Clr Calc Pharmacy 29.8 ml/min; Est GFR (African American) 27.4; Est GFR (Non-African American) 23.6; Glucose 182 mg/dl (70-99); Potassium 5.3 mmol/L (3.5-5.1); Sodium 133 mmol/L (136-145)
[2020-01-25 18:48] LABS: Alkaline Phosphatase 130 U/L (45-117); Bilirubin,Total 0.3 mg/dl (0.2-1); Globulin 3.2 gm/dl (2.5-4.0); NT Pro B Type Natriuretic Pept 2212 pg/ml (0-900); Total Protein 6.5 gm/dl (6.4-8.2); Troponin I < 0.015 ng/ml (0-0.045)
--- NOTE | 2020-01-25 19:35 | Ultrasound Report ---
US venous doppler LE BI CLINICAL HISTORY: Bilateral leg swelling. Possible DVT. COMPARISON STUDY: July 2014 FINDINGS: Real-time and color flow Doppler imaging were performed. Flow was seen within the femoral, popliteal and calf veins with no intraluminal thrombus demonstrated. The saphenous vein is patent. Th ere is prominent pulsatility within the femoral waveforms suggesting elevated right heart pressures IMPRESSION: No evidence of lower extremity DVT. ACT 112: Negative or not required by law. Electronically signed by: Gopi Ramos M.D. 01/25/2020 7:34 PM
[2020-01-25] MEDS ORDERED: ALBUT/IPRATROP 3MG/0.5MG NEB 3 ML VIAL NEB STA (19:42)
--- NOTE | 2020-01-25 23:39 | History & Physical Report ---
Date of Service January 25, 2020 Assessment & Plan (1) Shortness of breath: Admission and Anticipated Discharge Date Admission Date: 74-year-old male history of CAD, acute diastolic CHF, COPD, obstructive sleep apnea, on 2 L of oxygen at night, diabetes type 2, CKD stage III Continue progressive shortness of breath x1 month. Shortness of breath, likely multifactorial Possible mild systolic CHF acute exacerbation At this time patient is not in acute respiratory distress, saturating well on room air Does have signs of possible mild CHF exacerbation, chest x-ray showing possible congestion, BNP in the , mild lower leg edema However patient is in acute renal failure on CKD stage III, creatinine from 1.6 now 2.5 We will hold off on diuretics for now, usually on Lasix 80 mg twice a day and spinal lactone 25 mg daily Consult nephrology Update echocardiogram History of COPD [facility] No wheezing on exam Given Solu-Medrol at the ER Continue Trelegy, scheduled nebs Rule out PE Patient status post total colectomy last November 2019 at [facility] dental VQ scan ordered Rule out COVID COVID screen ordered Acute renal failure CKD stage III Hyperkalemia Potassium 5.3, bicarb 30 Refer to #1 History of CAD Continue aspirin, atorvastatin, metoprolol, ramipril Obstructive sleep apnea O2 via nasal cannula at night Diabetes type 2 Glycemic control consult DVT prophylaxis Heparin subcutaneous every 12 hours Disposition Lives at home with family History of Present Illness 74-year-old male with history of CAD, diastolic CHF, COPD, on 2 L of oxygen at night, obstructive sleep apnea, DM type II, CKD stage III Presenting with progressive shortness of breath x1 month. 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 Since that time, the patient reports progressive shortness of breath. Patient had a follow-up with Dr. Lino 4 days ago, patient was placed on T relegy and plan was to repeat CAT scan in 4 months. Patient denies cough, fevers or chills, does report white sputum. Denies chest pain, dizziness, palpitations, nausea or vomiting. No increased output per colostomy as per patient. Denies problems with urination. At the ER, chest x-ray showed possible vascular congestion. BNP in the . Creatinine 2.5 from baseline 1.6. Patient was given Solu-Medrol and albuterol treatment. On exam, patient patient was seen resting in bed, comfortable, not in distress, on room air. States he has dyspnea on exertion--> gets easily short of breath with just a few steps going to the bathroom. No active chest pain, nausea vomiting, dizziness, palpitations on my exam. Primary Care Provider: Neri Hatch MD Allergies Allergy/AdvReac Type Severity Reaction Status Date / Time No Known Allergies Allergy U Verified 01/25/20 18:40 Home Medications Home Medications Medication Instructions Recorded Confirmed Type Lantus U-100 Insulin 30 - 40 unit SUBCUT QPM 03/08/18 01/25/20 History albuterol sulfate 2.5 mg INHALATION QID PRN 03/08/18 01/25/20 History allopurinol 450 mg PO QAM 03/08/18 01/25/20 History aspirin [Aspirin Low Dose] 81 mg PO QAM 03/08/18 01/25/20 History atorvastatin 40 mg PO HS 03/08/18 01/25/20 History calcitriol 0.25 mcg PO QAM 03/08/18 01/25/20 History colchicine 0.6 mg PO DAILY PRN 03/08/18 01/25/20 History finasteride 5 mg PO QAM 03/08/18 01/25/20 History furosemide 80 mg PO BID 03/08/18 01/25/20 History insulin aspart U-100 [Novolog 1 dose SUBCUT TIDM 03/08/18 01/25/20 History Flexpen U-100 Insulin] ipratropium bromide 2.5 ml INHALATION QID PRN 03/08/18 01/25/20 History metoprolol succinate 50 mg PO QAM 03/08/18 01/25/20 History omeprazole 40 mg PO QAM 03/08/18 01/25/20 History ramipril 1.25 mg PO QAM 03/08/18 01/25/20 History spironolactone 25 mg PO QAM 03/08/18 01/25/20 History tramadol 50 mg PO Q6H PRN 03/08/18 01/25/20 History prednisone 20 mg PO QAM 01/25/20 01/25/20 History Past Med/Surg History Medical History BPH (benign prostatic hyperplasia) CAD (coronary artery disease) Last cardiac cath 08/09/2011 and demonstrated severe [place] vessel disease and an occluded SVG to the OM2. All other grafts noted to be patent at that time. 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 MCKINNEY (STAGE 3-4) Chronic obstructive pulmonary disease Emphysema Congestive heart failure chronic combined systolic and diastolic EF 45% 2011 Depression H/O -- NO MEDS CURRENTLY Diabetes mellitus, type 2 IDDM Diastolic CHF Dyslipidemia GERD (gastroesophageal reflux disease) Gout History of colon polyps HTN (hypertension) MRSA (methicillin resistant Staphylococcus aureus) Per infection control, 02/2018: "Patient has a history of MRSA in a wound and a nasal screen in 2014. Patient requires contact precautions." Myocardial Infarction 2005 - CABG X5 VESSELS. Subsequent caths with stenting 2005 and 2006. Obesity On home oxygen therapy 2LPM VIA N/C AT HS Pulmonary nodule Sleep apnea O2 AT NIGHT Surgical History H/O lithotripsy x 2 History of bronchoscopy x2, last 02/2018--benign right lower lobe lesion History of cardiac cath 2006 PCI of LCx 2007 PCI of LAD 2012 severe [place] vessel dz and an occluded SVG to OM2 graft. All other grafts patent. History of colonoscopy History of coronary artery bypass graft X5 VESSELS AT [facility] 2004 History of esophagogastroduodenoscopy (EGD) History of total hip arthroplasty RIGHT HIP -- WITH MULTIPLE REVISIONS Family History Other No family history of adverse response to anesthesia Social History Smoking Status: Former smoker Tobacco Type: Cigarettes Cigarettes Per Day: 60; Smoking End Date: 2004; Second Hand Exposure: No; Hx Alcohol Use: No Hx Substance Use: No Preferred Language: Swiss Communication Ability: Effective Student Recruiter Required: No Beliefs That Will Affect Care: None marital status: Current Living Situation: Spouse Other Information That Helps Us Care for You: No Feels Safe at Home: Yes Safety Concerns: Feels Safe At This Time Review of Systems Review of Systems: All systems reviewed & are unremarkable except as noted in HPI & below Physical Exam Physical Exam: General- oriented x 3, not in distress, speaks in sentences with no effort or accessory muscle use Head- atraumatic Eyes- PERRL, EOMI, anicteric ENT- oropharynx clear Neck- supple, no JVD, no adenopathy, no thyromegaly; carotids +2/2, no bruits appreciated Lungs- diminished but clear to auscultation bilaterally, no rales/wheezes Heart- normal rate, regular rhythm; no murmur, no gallop, no rub appreciated Abdomen- normal bowel sounds, nondistended, soft, nontender, no masses or hepatosplenomegaly Extremities- (+) mild lower leg edema- mild erythema, ruptured blister 1- RLE, 2-LLE, no signs of discharge/bleeding, no calf tenderness; peripheral pulses intact Neuro- alert, oriented x 3; CN 2-12 grossly intact; motor 5/5 bilaterally;sensation 100% on all extremities; no other gross focal neurologic deficits Skin- warm & dry Results & Data Results & Data ([facility]) Vital Signs (Past 12 Hours) Vital Signs Temp Pulse Pulse Resp BP BP Pulse Ox 01/25/20 23:17 86 18 117/61 97 01/25/20 22:12 88 15 108/59 L 95 01/25/20 20:00 86 18 125/60 100 01/25/20 19:51 98 H 16 97 01/25/20 19:50 85 21 130/72 97 01/25/20 18:22 98 01/25/20 18:15 80 20 123/64 98 01/25/20 15:26 98 01/25/20 15:19 37.1 C 88 18 126/68 98 Laboratory Results Laboratory Results - last 24 hr 01/25/20 01/25/20 01/25/20 18:10 18:10 18:10 WBC 11.58 H RBC 3.59 L Hgb 11.2 L Hct 35.0 L MCV 97.5 MCH 31.2 MCHC 32.0 RDW Std Deviation 55.2 H RDW Coeff of Josiah 15.4 H Plt Count 227 MPV 10.8 H Immature Gran % (Auto) 1.3 Neut % (Auto) 84.8 Lymph % (Auto) 8.9 [place] % (Auto) 5.0 Eos % (Auto) 0.0 Baso % (Auto) 0.0 Neut # (Auto) 9.82 H Lymph # (Auto) 1.03 L [place] # (Auto) 0.58 Eos # (Auto) 0.00 Baso # (Auto) 0.00 Immature Gran # (Auto) 0.15 H PT 10.5 INR 1.0 APTT 22.2 PTT Ratio 0.8 Sodium 133 L Potassium 5.3 H Chloride 95 L Carbon Dioxide 30 Anion Gap 8.0 BUN 53 H Creatinine 2.55 H Est Cr Clr Drug Dosing 29.8 Est GFR ( Amer) 27.4 Est GFR (Non-Af Amer) 23.6 BUN/Creatinine Ratio 20.8 H Glucose 182 H Calcium 8.9 Total Bilirubin 0.3 AST 8 L ALT 23 Alkaline Phosphatase 130 H Troponin I < 0.015 NT-Pro-B Natriuret Pep 2212 H Total Protein 6.5 Albumin 3.3 L Globulin 3.2 Albumin/Globulin Ratio 1.0 Urine Color Urine Appearance Urine pH Ur Specific [place] Urine Protein Urine Glucose (UA) Urine Ketones Urine Blood Urine Nitrite Urine Bilirubin Urine Urobilinogen Ur Leukocyte Esterase Urine WBC (Auto) Urine RBC (Auto) U Hyaline Cast (Auto) U Epithel Cells (Auto) Urine Bacteria (Auto) 01/25/20 18:14 WBC RBC Hgb Hct MCV MCH MCHC RDW Std Deviation RDW Coeff of Josiah Plt Count MPV Immature Gran % (Auto) Neut % (Auto) Lymph % (Auto) [place] % (Auto) Eos % (Auto) Baso % (Auto) Neut # (Auto) Lymph # (Auto) [place] # (Auto) Eos # (Auto) Baso # (Auto) Immature Gran # (Auto) PT INR APTT PTT Ratio Sodium Potassium Chloride Carbon Dioxide Anion Gap BUN Creatinine Est Cr Clr Drug Dosing Est GFR ( Amer) Est GFR (Non-Af Amer) BUN/Creatinine Ratio Glucose Calcium Total Bilirubin AST ALT Alkaline Phosphatase Troponin I NT-Pro-B Natriuret Pep Total Protein Albumin Globulin Albumin/Globulin Ratio Urine Color Yellow Urine Appearance Clear Urine pH 7.5 Ur Specific [place] 1.008 Urine Protein Negative Urine Glucose (UA) Negative Urine Ketones Negative Urine Blood Negative Urine Nitrite Negative Urine Bilirubin Negative Urine Urobilinogen Negative Ur Leukocyte Esterase 2+ H Urine WBC (Auto) 10-30 H Urine RBC (Auto) 0-4 U Hyaline Cast (Auto) 1-5 U Epithel Cells (Auto) 5-10 H Urine Bacteria (Auto) Negative Code Status & VTE Plan VTE Prophylaxis Plan VTE Prophylaxis will be ordered: Yes
[2020-01-26] MEDS ORDERED: COLCHICINE 0.6 MG TAB PO PRN (01:47)
[2020-01-26] MEDS ORDERED: CARBOHYDRATES FOR HYPOGLYCEMIA PO PRN (01:47)
[2020-01-26] MEDS ORDERED: DEXTROSE 50% 50 ML SYRINGE IV PRN (01:47)
[2020-01-26] MEDS ORDERED: XOPENEX/ATROVENT 1.25mg/0.5MG NEB COMBO NEB SCH (01:47)
[2020-01-26] MEDS ORDERED: GLUCOSE 10 TABS/TUBE PO PRN (01:47)
[2020-01-26] MEDS ORDERED: GLUCOSE 40% GEL 15 GM TUBE PO PRN (01:47)
[2020-01-26] MEDS ORDERED: GLUCAGON FOR INJ 1 MG VIAL SQ PRN (01:47)
[2020-01-26] MEDS ORDERED: PHARMACY GLYCEMIC MGMT CONSULT PRN (02:01)
[2020-01-26 03:02] LABS: BUN Creatinine Ratio 23.6 (10-20); Calcium 8.6 mg/dl (8.5-10.1); Est GFR (Non-African American) 25.1; Potassium 5.3 mmol/L (3.5-5.1)
[2020-01-26] MEDS: INSULIN ASPART 100 UNITS/ML 3 ML PEN SC SCH ×5 (03:28→21:15)
[2020-01-26 03:50] LABS: Beta-Hydroxybutyrate 1.69 mg/dl (0.2-2.81)
[2020-01-26] MEDS: LEVALBUTEROL 1.25MG/0.5ML NEB INH SCH ×3 (06:58→19:13)
[2020-01-26] MEDS: IPRATROPIUM BROMIDE NEB SOLN 0.02% 2.5 ML VIAL INH SCH ×3 (06:58→19:13)
[2020-01-26] MEDS: UMECLIDINIUM/VILANTEROL 62.5/25MCG 7 PUFFS/INHALER INH SCH (08:19)
[2020-01-26] MEDS: FLUTICASONE FUROATE 100MCG 14 PUFFS/INHALER INH SCH (08:19)
[2020-01-26] MEDS: allopurinoL 300 MG TAB PO SCH (08:20)
[2020-01-26] MEDS: METOPROLOL SUCC 50MG EXT REL TAB PO SCH (08:20)
[2020-01-26] MEDS: FINASTERIDE 5 MG TAB PO SCH (08:20)
[2020-01-26] MEDS: PANTOprazole 40 MG TAB PO SCH (08:20)
[2020-01-26] MEDS: predniSONE 20 MG TAB PO SCH (08:20)
[2020-01-26] MEDS: CALCITRIOL 0.25 MCG CAPSULE PO SCH (08:20)
[2020-01-26] MEDS: ASPIRIN 81 MG ECTAB PO SCH (08:20)
[2020-01-26] MEDS: HEPARIN SOD 5,000 UNIT/0.5 ML VIAL SQ SCH ×2 (08:20→20:49)
[2020-01-26] MEDS ORDERED: ENALAPRIL MALEATE 5 MG TAB PO SCH (09:00)
[2020-01-26 09:05] LABS: Estimated Average Glucose 140 mg/dl; Hemoglobin A1C 6.5 % (4.5-5.6)
--- NOTE | 2020-01-26 09:32 | Pharmacy Report ---
Glycemic Control Consultation - Date of Service January 26, 2020 - Scope Scope: Glycemic Pharmacist consulted for glycemic control and to write orders per [facility] inpatient glycemic control protocol. - Objective Weight: 105.5 kg Accuchecks BSG (last 24hrs): 01/25/20 01/26/20 01/26/20 18:10 02:03 07:24 Glucose 182 H 308 H* POC Glucose 163 H Laboratory Data (last 24hrs): 01/25/20 01/26/20 18:10 02:03 Potassium 5.3 H 5.3 H Carbon Dioxide 30 23 Anion Gap 8.0 11.0 Creatinine 2.55 H 2.43 H Est Cr Clr Drug Dosing 29.8 31.0 Beta-Hydroxybutyric Acd 1.69 HbA1c: Hemoglobin A1c 6.5 % (4.5-5.6) H 01/26/20 08:23 - Recent Pertinent Medications Outpatient Anti-diabetic Regimen: * Lantus 30-40 units HS * A1c = 6.5 % 01/26/20 Risk Factors for Insulin Resistance: * Steroids: Solu-medrol 125mg IV x 1 dose last night, then Prednisone 20mg PO daily starting today * Recent Surgery: total colectomy last month * Diet: Type 2 DM - Assessment & Plan Assessment & Plan: ASSESSMENT: * 74-year-old male, PMH of CAD, diastolic CHF, COPD, on 2 L of oxygen at night, MARVIN, DM type II, CKD stage III, presenting with progressive SOB x1 month, s/p total colectomy last month. * A1c at goal, treated with only once daily basal insulin at home, will split to more of basal/bolus regimen while inpatient. * Patient reports receiving Lantus last evening prior to admission, resume tonight. * High blood sugar d/t IV steroids given in ER, also receiving prednisone daily, will keep CR tight to decrease steroid induced hyperglycemia. PLAN FOR INPATIENT GLYCEMIC CONTROL: * Basal insulin * Lantus SQ HS * BSG 180mg/dl or less 20 units * BSG > 180mg/dl - 30 units * Bolus insulin * NovoLog per scale ACHS or Q6hrs while NPO * Goal Range: Low 110 mg/dL - High 140 mg/dL * Correction Factor: 15 mg/dL/unit * Nutritional / Prandial insulin per carb ratio of 1 unit per 4 grams CHO consumed * Please note that the plan above was derived based on current level of insulin resistance and hospital stress. These recommendations are appropriate for inpatient admission only. Plan of care upon discharge will need to be reassessed to avoid potential outpatient hypo/hyperglycemia. Thank you.
--- NOTE | 2020-01-26 11:11 | Nuclear Medicine Report ---
NUCLEAR PULMONARY PERFUSION SCAN CLINICAL HISTORY: Dyspnea. COMPARISON STUDY: Chest x-ray dated 01/25/2020. Chest CT dated 11/02/2019. TECHNIQUE: Nuclear pulmonary perfusion scan is performed following the IV administration of 6.3 mCi o f technetium 99m MAA. Images were acquired in the anterior, posterior, and oblique projections. FINDINGS: A chest x-ray performed 01/25/2020 shows cardiomegaly with evidence of congestive failure. There is co nsolidative change at the left lung base. Chest CT shows a chronic pleural collection at the left tierra g base. Pulmonary perfusion is markedly heterogeneous. A perfusion defect at the left lung base is likely rel ated to consolidation/parenchymal disease when correlated with recent chest x-ray and chest CT. No la rge segmental perfusion defects are identified. IMPRESSION: 1. Markedly heterogeneous perfusion is likely related to congestive failure and parenchymal disease. 2. There are no large segmental perfusion defects identified to suggest central pulmonary embolus. If there is strong clinical concern for pulmonary embolus a CT angiogram of the chest should be obtaine d. ACT 112: Negative or not required by law. Electronically signed by: Reggie Stone M.D. 01/26/2020 11:10 AM
--- NOTE | 2020-01-26 12:33 | CT Scan Report ---
CT SCAN OF THE CHEST WITHOUT IV CONTRAST CLINICAL HISTORY: Dyspnea. COMPARISON STUDY: Chest CT scans dated 11/02/2019, 01/16/2019, and 01/07/2018. TECHNIQUE: CT scan of the thorax was performed from the thoracic inlet to the upper abdomen. Images are reviewed in the axial, sagittal, and coronal planes. IV contrast was not administered for this ex amination as per the referring clinician. A dose lowering technique was utilized adhering to the buster Muhammad. CT DOSE: 999.90 mGy.cm FINDINGS: Thyroid: Imaged portions of the thyroid gland are normal in size and attenuation. Thoracic aorta: There is mild atherosclerotic calcification of the thoracic aorta, which is normal in caliber and demonstrates standard 3-vessel arch anatomy. Heart: The patient is status post midline sternotomy. The heart is enlarged and without pericardial e ffusion. There is lipomatous hypertrophy of the interatrial septum. The coronary arteries and mitral annulus are densely calcified. Lungs and pleural spaces: Emphysematous change is again noted. There is no airspace consolidation typ ical for pneumonia or pleural effusion. A chronic pleural collection at the left lung base measures 1 2.6 x 5.7 cm. There is overlying pleural thickening and calcification. A 1.7 cm spiculated pulmonary nodule is again seen in the right lower lobe on image #169. This has continued to increase in size fr om prior studies. Lung cancer remains the diagnosis of exclusion. An additional 4 mm right lower lobe pulmonary nodule seen on image #195 is unchanged. There are foci of bibasilar scarring/atelectasis. The trachea and central airways are clear. Mediastinum: There is no mediastinal lymphadenopathy. Kalina: Not well assessed without IV contrast. Axillae: There is no axillary lymphadenopathy. Upper abdomen: A small hiatal hernia is noted. Calcified gallstones are noted in the partially imaged gallbladder. The visualized kidneys demonstrate cortical atrophy. 1.6 cm cyst arises from the right upper pole. Subcutaneous gas is noted in the right upper quadrant abdominal wall on image #342. No in traperitoneal free air is seen in the upper abdomen. There is trace perihepatic ascites. Skeletal structures: The skeletal structures are osteopenic. Degenerative change and mild hyperkyphos is is noted in the thoracic spine. Arthritic change is seen in the shoulders. No lytic or blastic bon y lesions are seen. There are healed left-sided rib fractures. Soft tissues: Gynecomastia is noted. IMPRESSION: 1. There is no airspace consolidation typical for pneumonia or pleural effusion. 2. Cardiomegaly and emphysema. 3. A 1.7 cm spiculated nodule in the right lower lobe has minimally increased in size as compared to 11/02/2019. Lung cancer remains the diagnosis of exclusion. 4. An additional 4 mm right lower lobe pulmonary nodule is unchanged from 11/02/2019 but increased in s ize from older examinations. This is also concerning for neoplasm. 5. a chronic pleural collection at the left lung base is unchanged over multiple prior studies. 6. Trace perihepatic ascites. 7. There is minimal subcutaneous gas within the ventral abdominal wall in the right upper quadrant. T his may be related to instrumentation and clinical correlation will be required. 8. Cholelithiasis. 9. Additional findings as above. ACT 112: Negative or not required by law. Electronically signed by: Reggie Stone M.D. 01/26/2020 12:32 PM
--- NOTE | 2020-01-26 13:00 | Electrocardiogram Report ---
Test Reason : Blood Pressure : / mmHG Vent. Rate : 092 BPM Atrial Rate : 092 BPM P-R Int : 182 ms QRS Dur : 102 ms QT Int : 354 ms P-R-T Axes : 079 -37 046 degrees QTc Int : 437 ms Ectopic atrial rhythm with Premature atrial complexes Left axis deviation Abnormal ECG When compared with ECG of 19-NOV-2019 14:31, No significant change was found Confirmed by Jeff Manley ([id number]) on 01/26/2020 12:59:48 PM Referred By: REFERRED SELF Confirmed By:Jeff Manley
--- NOTE | 2020-01-26 15:40 | Nephrology Consultation ---
Date of Consultation January 26, 2020 Assessment & Plan (1) Acute kidney injury superimposed on chronic kidney disease: improving with presenting creatinine 2.6 on January 24 and improved to 2.4 on January 25; baseline CKD 4 creatinine 1.7-2.2 and quite labile. chemistries acceptable, mild hyperkalemia noted and persistent. Patient with chronic volume overload and for him he is relatively euvolemic at this time. Blood pressures acceptable. Recommend resuming outpatient Lasix 80 mg p.o. twice daily first dose this evening We will hold off on resuming spironolactone or ramipril; may resume the former most likely at lower dose to help with the potassium Present on Admission?: Yes (2) Shortness of breath: Improved clinically; no easy cause found and likely multifactorial. Continue therapies for COPD and resume diuretics as above Present on Admission?: Yes History of Present Illness Reason for Consultation: JOAN and HF Requesting Physician: Dr Lerma Attending Physician: Lukas Hinojosa MD History of Present Illness 74 y/o M admitted overnight for worsening shortness of breath likely multifactorial from chronic systolic HF, COPD, also with recent surgery, whom I'm asked to see for JOAN on CKD4. He follows with me in CKD clinic (though last appt over a year ago): his baseline creatinine is quite labile but ranges from 1.7-2.2 for the past 3 years, most recently 1.7 in late November. 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 His renal function remained at baseline throughout that admission. Other PMH includes combined systolic and diastolic HF, DM on insulin, CAD s/p stent/CABG remotely, severe COPD and hx of loculated pleural effusion (follows with Dr Lino), chronic lower extremity ulcers, prostatic hypertrophy and nephrolithiasis, peripheral vascular disease. His presenting creatinine was 2.6, to 2.4 today; K has been steady at 5.3. he takes lasix 80 mg po bid and spironolactone 25 mg daily; also on low dose ramipril. he had solumedrol in ER; his OP nebs/inhalers were continued. His sats are stable on RA. In particular due to recent surgery, VQ scan and TTE were ordered. Prior to admission his breathing was so short he could hardly cross the room. He states that he feels breathing is improved this evening and today. Allergies Allergy/AdvReac Type Severity Reaction Status Date / Time No Known Allergies Allergy U Verified 01/25/20 18:40 Home Medications Home Medications Medication Instructions Recorded Confirmed Type Lantus U-100 Insulin 30 - 40 unit SUBCUT QPM 03/08/18 01/25/20 History albuterol sulfate 2.5 mg INHALATION QID PRN 03/08/18 01/25/20 History allopurinol 450 mg PO QAM 03/08/18 01/25/20 History aspirin [Aspirin Low Dose] 81 mg PO QAM 03/08/18 01/25/20 History atorvastatin 40 mg PO HS 03/08/18 01/25/20 History calcitriol 0.25 mcg PO QAM 03/08/18 01/25/20 History colchicine 0.6 mg PO DAILY PRN 03/08/18 01/25/20 History finasteride 5 mg PO QAM 03/08/18 01/25/20 History furosemide 80 mg PO BID 03/08/18 01/25/20 History insulin aspart U-100 [Novolog 1 dose SUBCUT TIDM 03/08/18 01/25/20 History Flexpen U-100 Insulin] ipratropium bromide 2.5 ml INHALATION QID PRN 03/08/18 01/25/20 History metoprolol succinate 50 mg PO QAM 03/08/18 01/25/20 History omeprazole 40 mg PO QAM 03/08/18 01/25/20 History ramipril 1.25 mg PO QAM 03/08/18 01/25/20 History spironolactone 25 mg PO QAM 03/08/18 01/25/20 History tramadol 50 mg PO Q6H PRN 03/08/18 01/25/20 History prednisone 20 mg PO QAM 01/25/20 01/25/20 History Patient History Medical History BPH (benign prostatic hyperplasia) CAD (coronary artery disease) Last cardiac cath 08/09/2011 and demonstrated severe skull valley vessel disease and an occluded SVG to the OM2. All other grafts noted to be patent at that time. 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 MCKINNEY (STAGE 3-4) Chronic obstructive pulmonary disease Emphysema Congestive heart failure chronic combined systolic and diastolic EF 45% 2011 Depression H/O -- NO MEDS CURRENTLY Diabetes mellitus, type 2 IDDM Diastolic CHF Dyslipidemia GERD (gastroesophageal reflux disease) Gout History of colon polyps HTN (hypertension) Ileostomy, has currently MRSA (methicillin resistant Staphylococcus aureus) Per infection control, 02/2018: "Patient has a history of MRSA in a wound and a nasal screen in 2014. Patient requires contact precautions." Myocardial Infarction 2005 - CABG X5 VESSELS. Subsequent caths with stenting 2005 and 2006. Obesity On home oxygen therapy 2LPM VIA N/C AT HS Pulmonary nodule Sleep apnea O2 AT NIGHT Surgical History H/O lithotripsy x 2 History of bronchoscopy x2, last 02/2018--benign right lower lobe lesion History of cardiac cath 2006 PCI of LCx 2007 PCI of LAD 2012 severe skull valley vessel dz and an occluded SVG to OM2 graft. All other grafts patent. History of colonoscopy History of coronary artery bypass graft X5 VESSELS AT [facility] 2004 History of esophagogastroduodenoscopy (EGD) History of total colectomy for Huma's syndrome History of total hip arthroplasty RIGHT HIP -- WITH MULTIPLE REVISIONS Family History Brother Heart disease Father Heart disease Other No family history of adverse response to anesthesia Social History Smoking Status: Former smoker Tobacco Type: Cigarettes Cigarettes Per Day: 60; Smoking End Date: 2004; Second Hand Exposure: No; Hx Alcohol Use: No Hx Substance Use: No Preferred Language: Luxembourgish Communication Ability: Effective Steel Molder Required: No Beliefs That Will Affect Care: None marital status: Current Living Situation: Spouse Other Information That Helps Us Care for You: No Feels Safe at Home: Yes Safety Concerns: Feels Safe At This Time Review of Systems Review of Systems: All systems reviewed & are unremarkable except as noted in HPI & below Respiratory: as per Subjective / HPI and + dyspnea on exertion; no wheezing Genitourinary: + problem reported (Notes urine has been foamier lately); no urinary frequency Integumentary: States he had his compression hose off for 2 days and lower extremities blistered skin broke Physical Exam Constitutional: well developed, well nourished and + obese; no acute distress Sitting up in chair on room air eating supper Eyes: EOM intact bilaterally ENMT: Ears: no external ear abnormality Nose: no external nose abnormality Mouth: + dry oral mucous membranes Neck: no nuchal rigidity Respiratory: normal respiratory effort Auscultation: + diminished lung sounds Cardiovascular: Rate/Rhythm: regular rate and regular rhythm (Heart sounds very distant) Extremities: + edema (Trace indurated bilateral lower extremity) Gastrointestinal (Abdomen): Inspection/Auscultation: normal bowel sounds Percussion/Palpation: abdomen soft; abdomen nontender Ileostomy bag present Musculoskeletal: Extremities: strength 5/5 throughout Skin: no rashes, warm and dry Neurologic: rivera, fluent speech, no tremor Psychiatric: A+Ox3, euthymic affect Results & Data ([facility]) Vital Signs (Past 12 Hours) Vital Signs Temp Pulse Pulse Resp BP BP Pulse Ox 01/26/20 13:02 70 16 97 01/26/20 11:42 36.5 C 88 19 109/55 L 97 01/26/20 07:52 88 01/26/20 07:08 37.0 C 83 19 105/63 98 01/26/20 06:58 78 16 96 01/26/20 04:13 36.7 C 88 18 115/72 99 Laboratory Results 01/25/20 18:10 01/26/20 02:03 UA: Specific gravity 1008 with 2+ leukocyte Estrace 5-10 epithelial cells per high-powered field 10-30 white cells per high-powered field no dipstick proteinuria or other indices Diagnostic Findings Chest CT non con 1. There is no airspace consolidation typical for pneumonia or pleural effusion. 2. Cardiomegaly and emphysema 3. A 1.7 cm spiculated nodule in the right lower lobe has minimally increased in size as compared to 11/02/2019. Lung cancer remains the diagnosis of exclusion. 4. An additional 4 mm right lower lobe pulmonary nodule is unchanged from but increased in size from older examinations. This is also concerning for neoplasm. 5. a chronic pleural collection at the left lung base is unchanged over multiple prior studies. 6. Trace perihepatic ascites. 7. There is minimal subcutaneous gas within the ventral abdominal wall in the right upper quadrant. This may be related to instrumentation and clinical correlation will be required. 8. Cholelithiasis 9. Additional findings as above. VQ scan 1. Markedly heterogeneous perfusion is likely related to congestive failure and parenchymal disease. 2. There are no large segmental perfusion defects identified to suggest central pulmonary embolus. If there is strong clinical concern for pulmonary embolus a CT angiogram of the chest should be obtained. CXR 1. Cardiomegaly 2. Emphysema 3. Equivocal mild pulmonary vascular congestion 4. Subtle retrocardiac airspace opacities cannot be excluded. 5. Small chronic left pleural effusion LE Dopplers No DVT TTE: Ejection fraction 60 to 65% Severe left atrial dilatation with mild concentric LVH and moderate aortic valve sclerosis without significant stenosis. Moderate to severe mitral annular calcification and mild mitral stenosis and mild mitral regurgitation. Right atrium mild to moderately dilated with normal right ventricular systolic function
--- NOTE | 2020-01-26 15:52 | Hospitalist Progress Note ---
Date of Service January 26, 2020 Assessment & Plan (1) Shortness of breath: Patient is a 74 yr male with H/O CAD, Diastolic CHF, COPD, obstructive sleep apnea, on 2 L of oxygen at night, DM II, CKD stage III and other medical problems presents with history of worsening shortness of breath x1 month. Acute on chronic respiratory failure with hypoxia Chronic oxygen dependency--2 L oxygen at bedtime Likely multifactorial--acute on chronic diastolic heart failure In setting of COPD, obstructive sleep apnea, valvular heart disease --CXR:Cardiomegaly. Emphysema. Equivocal mild pulmonary vascular congestion. Subtle retrocardiac airspace opacities cannot be excluded. Small chronic left p leural effusion --CT chest:No airspace consolidation typical for pneumonia or pleural effusion. Cardiomegaly and emphysema. A 1.7 cm spiculated nodule in the right lower lobe has minimally increased in size as compared to 11/02/2019. Lung cancer remains the diagnosis of exclusion. An additional 4 mm right lower lobe pulmonary nodule is unchanged from 11/02/2019 but increased in size from older examinations. This is also concerning for neoplasm. Chronic pleural collection at the left lung base is unchanged over multiple prior studies. Trace perihepatic ascites. There is minimal subcutaneous gas within the ventral abdominal wall in the right upper quadrant. This may be related to instrumentation and clinical correlation will be required. Cholelithiasis. --ECHO: Mild concentric LVH. EF 60 to 65%. Right ventricle systolic function is normal. Left atrium is severely dilated. Right atrium is mild to moderate dilated. Aortic valve sclerosis moderate, without significant aortic valvular stenosis. Moderate to severe mitral annular calcification. Mild mitral stenosis. Mild mitral regurgitation. --Nuclear perfusion scan: Markedly heterogeneous perfusion is likely related to congestive failure and parenchymal disease. There are no large segmental perfusion defects identified to suggest central pulmonary embolus. If there is strong clinical concern for pulmonary embolus a CT angiogram of the chest should be obtained. --Venous Doppler:No evidence of lower extremity DVT. --BNP:2212 --COVID: Negative --Currently saturating well on room air --Will need diuretics adjusted --Will wait for Nephrology recommendations --Currently on tapering prednisone course as per outpatient pulmonology --Continue nebs, Trilogy, Supplemental Oxygen --Continue Metoprolol --Ramipril held due to JOAN H/O Refractory Ary Syndrome S/P Total colectomy last November 2019 at [facility] dental Stable Acute Kidney Injury on CKD stage IV Hyperkalemia due to JOAN Baseline Cr:1-7-2.2 Cr: 2.43 Ramipril held Avoid nephrotoxic agents as able Monitor renal function Nephrology consulted H/O CAD S/P CABG Continue aspirin, atorvastatin, metoprolol COPD Chronic Oxygen Dependency- 2L HS Obstructive sleep apnea Continue nebs, Trilogy, Supplemental Oxygen HS, Home inhalers On Prednisone Taper DM II HbA1C:6.5 Glycemic control consult Continue Insulin therapy Monitor BGs DVT Px: Heparin SQ Disposition Expect to discharge home when medically stable Admission and Anticipated Discharge Date Admission Date: January 25, 2020 Subjective Patient is seen and examined at bedside Dyspnea improved from time of admission Reports chronic lower back pain denies chest pain, dizziness, nausea, abdominal pain Discussed with family in detail Offers no other complaints Review of Systems Review of Systems: All systems reviewed & are unremarkable except as noted in HPI & below Physical Exam Physical Exam: Physical Exam: Vitals signs as noted above General Appearance:Moderately built and nourished, no apparent distress Head: normocephalic, Atraumatic Eyes: normal inspection, EOMI Neck: supple, Trachea midline Respiratory/Chest: Decreased breath sounds, CTA, +CABG Scar Cardiovascular: S1, S2, No murmur Abdomen/GI:Soft, Non tender, Bowel sounds present, +Colostomy, +Healing vertical surgical scar Extremities/Musculoskelatal:normal inspection, B/L LE edema, Venous stasis changes, Mild erythema Neurologic/Psych:AAOX3, grossly no focal neurological deficits Skin: normal color, warm Results & Data Results & Data ([facility]) Vital Signs (Past 12 Hours) Vital Signs Temp Pulse Pulse Resp BP BP Pulse Ox 01/26/20 13:02 70 16 97 01/26/20 11:42 36.5 C 88 19 109/55 L 97 01/26/20 07:52 88 01/26/20 07:08 37.0 C 83 19 105/63 98 01/26/20 06:58 78 16 96 01/26/20 04:13 36.7 C 88 18 115/72 99 Laboratory Results Short CBC 01/25/20 Range/Units 18:10 WBC 11.58 H (4.8-10.8) K/uL Hgb 11.2 L (14.0-18.0) g/dL Hct 35.0 L (42-52) % Plt Count 227 (130-400) K/uL BMP 01/25/20 01/26/20 18:10 02:03 Sodium 133 L 133 L Potassium 5.3 H 5.3 H Chloride 95 L 99 Carbon Dioxide 30 23 BUN 53 H 57 H Creatinine 2.55 H 2.43 H Glucose 182 H 308 H* Calcium 8.9 8.6 Cardiac Enzymes 01/25/20 Range/Units 18:10 Troponin I < 0.015 (0-0.045) ng/ml Liver Function 01/25/20 Range/Units 18:10 Total Bilirubin 0.3 (0.2-1) mg/dl AST 8 L (15-37) U/L ALT 23 (12-78) U/L Alkaline Phosphatase 130 H (45-117) U/L Albumin 3.3 L (3.4-5.0) gm/dl Urine 01/25/20 Range/Units 18:14 Urine Color Yellow Urine Appearance Clear (Clear) Urine pH 7.5 (4.5-7.5) Ur Specific [place] 1.008 (1.000-1.030) Urine Protein Negative (Negative) Urine Glucose (UA) Negative (Negative)
[2020-01-26] MEDS ORDERED: FUROSEMIDE 80 MG TAB PO ONE (17:32)
[2020-01-26] MEDS ORDERED: INSULIN GLARGINE SOLOSTAR 100 UNITS/ML 3 ML PEN SC SCH (21:00)
[2020-01-26] MEDS ORDERED: ATORVASTATIN 40 MG TAB PO SCH (21:00)
[2020-01-27] MEDS: IPRATROPIUM BROMIDE NEB SOLN 0.02% 2.5 ML VIAL INH SCH ×3 (00:02→13:32)
[2020-01-27] MEDS: LEVALBUTEROL 1.25MG/0.5ML NEB INH SCH ×3 (00:02→13:32)
[2020-01-27 07:30] LABS: Prothrombin Time 10.9 Seconds (9.0-12.0)
[2020-01-27 07:39] LABS: Hematocrit (blood only) 36.8 % (42-52); Hemoglobin 11.9 g/dL (14.0-18.0); Mean Corpuscular Hemoglobin 31.3 pg (25-34); Mean Corpuscular Hgb Conc 32.3 g/dL (32-36); Mean Corpuscular Volume 96.8 fL (80-100); Mean Platelet Volume 10.8 fL (7.4-10.4); Platelet Count 217 K/uL (130-400); RDW Coefficient of Variation 15.7 % (11.5-14.5); RDW Standard Deviation 55.3 fL (36.4-46.3); White Blood Count 12.84 K/uL (4.8-10.8)
[2020-01-27] MEDS: FLUTICASONE FUROATE 100MCG 14 PUFFS/INHALER INH SCH (07:41)
[2020-01-27] MEDS: CALCITRIOL 0.25 MCG CAPSULE PO SCH (07:41)
[2020-01-27] MEDS: PANTOprazole 40 MG TAB PO SCH (07:41)
[2020-01-27] MEDS: HEPARIN SOD 5,000 UNIT/0.5 ML VIAL SQ SCH (07:41)
[2020-01-27] MEDS: UMECLIDINIUM/VILANTEROL 62.5/25MCG 7 PUFFS/INHALER INH SCH (07:41)
[2020-01-27] MEDS: allopurinoL 300 MG TAB PO SCH (07:41)
[2020-01-27] MEDS: ASPIRIN 81 MG ECTAB PO SCH (07:42)
[2020-01-27] MEDS: FINASTERIDE 5 MG TAB PO SCH (07:42)
[2020-01-27] MEDS: predniSONE 20 MG TAB PO SCH (07:42)
[2020-01-27] MEDS: METOPROLOL SUCC 50MG EXT REL TAB PO SCH (07:42)
[2020-01-27] MEDS: INSULIN ASPART 100 UNITS/ML 3 ML PEN SC SCH ×2 (07:45→11:41)
[2020-01-27 07:46] LABS: BUN Creatinine Ratio 31.4 (10-20); Calcium 9.2 mg/dl (8.5-10.1); Creatinine Clr Calc Pharmacy 34.5 ml/min; Est GFR (African American) 33.5; Est GFR (Non-African American) 28.9; Magnesium 2.5 mg/dl (1.8-2.4); Potassium 4.7 mmol/L (3.5-5.1)
--- NOTE | 2020-01-27 10:12 | Pharmacy Report ---
Pharmacy Glycemic Short Note 2 - Date of Service January 27, 2020 - Glycemic Short BSG Results (Last 24 hours): 01/26/20 01/26/20 01/26/20 11:40 16:32 20:37 Glucose POC Glucose 204 H 125 H 115 H 01/27/20 01/27/20 07:12 07:24 Glucose 110 H POC Glucose 106 H OUTPATIENT ANTIDIABETIC REGIMEN: * Lantus 30-40 units SQ qPM * A1c = 6.5% (01/26/20) ASSESSMENT: * 74-year-old male, PMH of CAD, diastolic CHF, COPD, on 2 L of oxygen at night, MARVIN, DM type II, CKD stage III, presenting with progressive SOB x1 month, s/p total colectomy last month. * Patient received a one time dose of solu medrol 125 mg IV in the ED on 01/25 plus prednisone 20 mg daily. Prednisone has been decreased to 10 mg daily starting 01/27. Will likely need to back off novolog since high dose IV steroid has worn off. * Fasting BSG of 106 mg/dL is at goal. I am concerned this value may continue to trend downward, therefore I will decrease Lantus per scale dose so that the max dose he receives is 25 units. PLAN FOR INPATIENT GLYCEMIC CONTROL: * Hold outpatient oral diabetes medications * Basal insulin * Lantus per scale SQ qPM * 15 units for BSG <110 mg/dL * 20 units for BSG 110 - 180 mg/dL * 25 units for BSG > 180 mg/dL * Bolus insulin * NovoLog per scale ACHS or Q6hrs while NPO * Goal Range: Low 110 mg/dL - High 140 mg/dL * Correction Factor: 20 mg/dL/unit * Nutritional / Prandial insulin per carb ratio of 1 unit per 6 grams CHO consumed PLAN FOR DISCHARGE: * A1c of 6.5% is at goal * It seems reasonable to continue home regimen as long as patient denies frequent hypoglycemia at home
[2020-01-27] MEDS ORDERED: FUROSEMIDE 80 MG TAB PO SCH (10:15)
--- NOTE | 2020-01-27 12:35 | Nephrology Progress Note ---
Date of Service January 27, 2020 Assessment & Plan (1) Acute kidney injury superimposed on chronic kidney disease: improving with presenting creatinine 2.6 on January 24 and improved to 2.4 on January 25, and to 2.2 today; baseline CKD 4 creatinine 1.7-2.2 and quite labile. chemistries acceptable, trend to mild hyperkalemia noted and persistent though improved today. Patient with chronic volume overload and for him he is relatively euvolemic at this time. Blood pressures acceptable. -from renal standpoint ok for hospital discharge; recs below updated in discharge summary Recommend at discharge continuing outpatient Lasix 80 mg p.o. twice daily last dose 4 hrs at least after first dose and resume spironolactone but at lower 12.5 mg daily dose would hold off on ramipril 1.25 mg daily home dose and resume after follow up with renal as outpatient -recheck bmp in one week or at pcp follow up whichever is first; keep nephro october appt for now but also get hospital follow up with me or SHASHANK Landry next 2-4 wks [facility] -cont 1.5L FR, low Na diet, low K diet d/c recs d/w pt and care coordinated with Dr Hinojosa (2) Shortness of breath: Improved clinically; no easy cause found and likely multifactorial. Continue therapies for COPD and resume diuretics as above Admission and Anticipated Discharge Date Admission Date: January 25, 2020 Subjective Seen on rounds at proximately 1300. at bedside. Patient is breathing better and overall feels improved. Still with exertional dyspnea but improved. Denies voiding symptoms, denies nausea vomiting diarrhea, denies worsening edema. Review of Systems Review of Systems: All systems reviewed & are unremarkable except as noted in HPI & below Physical Exam Constitutional: well developed, well nourished and + obese; no acute distress Up in chair on room air Eyes: EOM intact bilaterally ENMT: Ears: no external ear abnormality Nose: no external nose abnormality Mouth: + dry oral mucous membranes Neck: no nuchal rigidity Respiratory: normal respiratory effort Auscultation: + diminished lung sounds Cardiovascular: Rate/Rhythm: regular rate and regular rhythm (Heart sounds very distant) Extremities: + edema (Trace indurated bilateral lower extremity) Gastrointestinal (Abdomen): Inspection/Auscultation: normal bowel sounds Percussion/Palpation: abdomen soft; abdomen nontender Musculoskeletal: Extremities: strength 5/5 throughout Skin: no rashes, warm and dry Psychiatric: A+Ox3, euthymic affect Results & Data ([facility]) Vital Signs (Past 12 Hours) Vital Signs Temp Pulse Pulse Resp BP Pulse Ox 01/27/20 08:00 90 01/27/20 07:50 37.0 C 85 18 132/60 95 01/27/20 07:00 73 16 97 01/27/20 03:38 36.8 C 78 18 101/57 L 98 Laboratory Results 01/27/20 07:12 01/27/20 07:12
--- NOTE | 2020-01-27 13:54 | Hospitalist Progress Note ---
Date of Service January 27, 2020 Assessment & Plan (1) Shortness of breath: Patient is a 74 yr male with H/O CAD, Diastolic CHF, COPD, obstructive sleep apnea, on 2 L of oxygen at night, DM II, CKD stage III and other medical problems presents with history of worsening shortness of breath x1 month. Acute on chronic respiratory failure with hypoxia Chronic oxygen dependency--2 L oxygen at bedtime Likely multifactorial--acute on chronic diastolic heart failure In setting of COPD, obstructive sleep apnea, valvular heart disease --CXR:Cardiomegaly. Emphysema. Equivocal mild pulmonary vascular congestion. Subtle retrocardiac airspace opacities cannot be excluded. Small chronic left p leural effusion --CT chest:No airspace consolidation typical for pneumonia or pleural effusion. Cardiomegaly and emphysema. A 1.7 cm spiculated nodule in the right lower lobe has minimally increased in size as compared to 11/02/2019. Lung cancer remains the diagnosis of exclusion. An additional 4 mm right lower lobe pulmonary nodule is unchanged from 11/02/2019 but increased in size from older examinations. This is also concerning for neoplasm. Chronic pleural collection at the left lung base is unchanged over multiple prior studies. Trace perihepatic ascites. There is minimal subcutaneous gas within the ventral abdominal wall in the right upper quadrant. This may be related to instrumentation and clinical correlation will be required. Cholelithiasis. --ECHO: Mild concentric LVH. EF 60 to 65%. Right ventricle systolic function is normal. Left atrium is severely dilated. Right atrium is mild to moderate dilated. Aortic valve sclerosis moderate, without significant aortic valvular stenosis. Moderate to severe mitral annular calcification. Mild mitral stenosis. Mild mitral regurgitation. --Nuclear perfusion scan: Markedly heterogeneous perfusion is likely related to congestive failure and parenchymal disease. There are no large segmental perfusion defects identified to suggest central pulmonary embolus. If there is strong clinical concern for pulmonary embolus a CT angiogram of the chest should be obtained. --Venous Doppler:No evidence of lower extremity DVT. 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 at [facility] dental Stable Acute Kidney Injury on CKD stage IV Hyperkalemia due to JOAN Baseline Cr:1-7-2.2 Cr: 2.43>>>2.16 Ramipril held during hospitalization Avoid nephrotoxic agents as able Monitor renal function Appreciate Nephrology Input Will obtain BMP in 1 week upon discharge H/O CAD S/P CABG Continue aspirin, atorvastatin, metoprolol COPD Chronic Oxygen Dependency- 2L HS Obstructive sleep apnea Continue nebs, Trilogy, Supplemental Oxygen HS, Home inhalers Completed Prednisone Taper DM II HbA1C:6.5 Glycemic control consult Continue Insulin therapy Monitor BGs DVT Px: Heparin SQ Disposition Plan to discharge home with Home Health services. Admission and Anticipated Discharge Date Admission Date: January 25, 2020 Subjective Patient is seen and examined at bedside Feels a lot better today Offers no new complaints Discussed with nephrology today Eager to get discharged Denies chest pain, SOB, dizziness, nausea, abdominal pain Review of Systems Review of Systems: All systems reviewed & are unremarkable except as noted in HPI & below Physical Exam Physical Exam: Physical Exam: Vitals signs as noted above General Appearance:Moderately built and nourished, no apparent distress Head: normocephalic, Atraumatic Eyes: normal inspection, EOMI Neck: supple, Trachea midline Respiratory/Chest: Decreased breath sounds, CTA, +CABG Scar Cardiovascular: S1, S2, No murmur Abdomen/GI:Soft, Non tender, Bowel sounds present, +Colostomy, +Healing vertical surgical scar Extremities/Musculoskelatal:normal inspection, B/L LE edema, Venous stasis changes, Mild erythema Neurologic/Psych:AAOX3, grossly no focal neurological deficits Skin: normal color, warm Results & Data Results & Data ([facility]) Vital Signs (Past 12 Hours) Vital Signs Temp Pulse Pulse Resp BP Pulse Ox 01/27/20 13:33 82 16 97 01/27/20 12:30 36.4 C L 71 20 105/63 100 01/27/20 08:00 90 01/27/20 07:50 37.0 C 85 18 132/60 95 01/27/20 07:00 73 16 97 01/27/20 03:38 36.8 C 78 18 101/57 L 98 Laboratory Results Short CBC 01/27/20 Range/Units 07:12 WBC 12.84 H (4.8-10.8) K/uL Hgb 11.9 L (14.0-18.0) g/dL Hct 36.8 L (42-52) % Plt Count 217 (130-400) K/uL BMP 01/27/20 07:12 Sodium 136 Potassium 4.7 Chloride 98 Carbon Dioxide 30 BUN 68 H Creatinine 2.16 H Glucose 110 H Calcium 9.2
--- NOTE | 2020-01-27 14:11 | Discharge Summary ---
Date of Service January 27, 2020 Admission HPI Per Admitting Provider 74-year-old male with history of CAD, diastolic CHF, COPD, on 2 L of oxygen at night, obstructive sleep apnea, DM type II, CKD stage III Presenting with progressive shortness of breath x1 month. Patient underwent a total colectomy secondary to refractory [place] syndrome and [facility] last month. Since that time, the patient reports progressive shortness of breath. Patient had a follow-up with Dr. Lino 4 days ago, patient was placed on Trelegy and plan was to repeat CAT scan in 4 months. Patient denies cough, fevers or chills, does report white sputum. Denies chest pain, dizziness, palpitations, nausea or vomiting. No increased output per colostomy as per patient. Denies problems with urination. At the ER, chest x-ray showed possible vascular congestion. BNP in the . Creatinine 2.5 from baseline 1.6. Patient was given Solu-Medrol and albuterol treatment. On exam, patient patient was seen resting in bed, comfortable, not in distress, on room air. States he has dyspnea on exertion--> gets easily short of breath with just a few steps going to the bathroom. No active chest pain, nausea vomiting, dizziness, palpitations on my exam. Primary Care Provider: Neri Hatch MD Admission Exam Per Admitting Provider Physical Exam Physical Exam: General- oriented x 3, not in distress, speaks in sentences with no effort or accessory muscle use Head- atraumatic Eyes- PERRL, EOMI, anicteric ENT- oropharynx clear Neck- supple, no JVD, no adenopathy, no thyromegaly; carotids +2/2, no bruits appreciated Lungs- diminished but clear to auscultation bilaterally, no rales/wheezes Heart- normal rate, regular rhythm; no murmur, no gallop, no rub appreciated Abdomen- normal bowel sounds, nondistended, soft, nontender, no masses or hepatosplenomegaly Extremities- (+) mild lower leg edema- mild erythema, ruptured blister 1- RLE, 2-LLE, no signs of discharge/bleeding, no calf tenderness; peripheral pulses intact Neuro- alert, oriented x 3; CN 2-12 grossly intact; motor 5/5 bilaterally;sensation 100% on all extremities; no other gross focal neurologic deficits Skin- warm & dry Principal Diagnosis Acute on chronic respiratory failure with hypoxia Acute on chronic diastolic heart failure Acute Kidney Injury Discharge Data Allergies Allergy/AdvReac Type Severity Reaction Status Date / Time No Known Allergies Allergy U Verified 01/25/20 18:40 Consultations 01/25/20 20:34 ED Decision to Admit Stat 01/26/20 01:47 Consult Nephrology Routine Consult Nephrology Routine Procedures Performed --CXR:Cardiomegaly. Emphysema. Equivocal mild pulmonary vascular congestion. Subtle retrocardiac airspace opacities cannot be excluded. Small chronic left pleural effusion --CT chest:No airspace consolidation typical for pneumonia or pleural effusion. Cardiomegaly and emphysema. A 1.7 cm spiculated nodule in the right lower lobe has minimally increased in size as compared to 11/02/2019. Lung cancer remains the diagnosis of exclusion. An additional 4 mm right lower lobe pulmonary nodule is unchanged from 11/02/2019 but increased in size from older examinations. This is also concerning for neoplasm. Chronic pleural collection at the left lung base is unchanged over multiple prior studies. Trace perihepatic ascites. There is minimal subcutaneous gas within the ventral abdominal wall in the right upper quadrant. This may be related to instrumentation and clinical correlation will be required. Cholelithiasis. --ECHO: Mild concentric LVH. EF 60 to 65%. Right ventricle systolic function is normal. Left atrium is severely dilated. Right atrium is mild to moderate dilated. Aortic valve sclerosis moderate, without significant aortic valvular stenosis. Moderate to severe mitral annular calcification. Mild mitral stenosis. Mild mitral regurgitation. --Nuclear perfusion scan: Markedly heterogeneous perfusion is likely related to congestive failure and parenchymal disease. There are no large segmental perfusion defects identified to suggest central pulmonary embolus. If there is strong clinical concern for pulmonary embolus a CT angiogram of the chest should be obtained. --Venous Doppler:No evidence of lower extremity DVT. Ordered Studies 01/25/20 17:50 US venous doppler LE BI Stat 01/26/20 11:39 CT chest wo con Urgent Hospital Course (1) Shortness of breath: Patient is a 74 yr male with H/O CAD, Diastolic CHF, COPD, obstructive sleep apnea, on 2 L of oxygen at night, DM II, CKD stage III and other medical problems presents with history of worsening shortness of breath x1 month. Acute on chronic respiratory failure with hypoxia Chronic oxygen dependency--2 L oxygen at bedtime Likely multifactorial--acute on chronic diastolic heart failure In setting of COPD, obstructive sleep apnea, valvular heart disease --CXR:Cardiomegaly. Emphysema. Equivocal mild pulmonary vascular congestion. Subtle retrocardiac airspace opacities cannot be excluded. Small chronic left pleural effusion --CT chest:No airspace consolidation typical for pneumonia or pleural effusion. Cardiomegaly and emphysema. A 1.7 cm spiculated nodule in the right lower lobe has minimally increased in size as compared to 11/02/2019. Lung cancer remains the diagnosis of exclusion. An additional 4 mm right lower lobe pulmonary nodule is unchanged from 11/02/2019 but increased in size from older examinations. This is also concerning for neoplasm. Chronic pleural collection at the left lung base is unchanged over multiple prior studies. Trace perihepatic ascites. There is minimal subcutaneous gas within the ventral abdominal wall in the right upper quadrant. This may be related to instrumentation and clinical correlation will be required. Cholelithiasis. --ECHO: Mild concentric LVH. EF 60 to 65%. Right ventricle systolic function is normal. Left atrium is severely dilated. Right atrium is mild to moderate dilated. Aortic valve sclerosis moderate, without significant aortic valvular stenosis. Moderate to severe mitral annular calcification. Mild mitral stenosis. Mild mitral regurgitation. --Nuclear perfusion scan: Markedly heterogeneous perfusion is likely related to congestive failure and parenchymal disease. There are no large segmental perfusion defects identified to suggest central pulmonary embolus. If there is strong clinical concern for pulmonary embolus a CT angiogram of the chest should be obtained. --Venous Doppler:No evidence of lower extremity DVT. 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 [facility] dental Stable Acute Kidney Injury on CKD stage IV Hyperkalemia due to JOAN Baseline Cr:1-7-2.2 Cr: 2.43>>>2.16 Ramipril held during hospitalization Avoid nephrotoxic agents as able Monitor renal function Appreciate Nephrology Input Will obtain BMP in 1 week upon discharge H/O CAD S/P CABG Continue aspirin, atorvastatin, metoprolol COPD Chronic Oxygen Dependency- 2L HS Obstructive sleep apnea Continue nebs, Trilogy, Supplemental Oxygen HS, Home inhalers Completed Prednisone Taper DM II HbA1C:6.5 Glycemic control consult Continue Insulin therapy Monitor BGs DVT Px: Heparin SQ Disposition Plan to discharge home with Home Health services. Total Time Total Time Spent Total Time Spent (In Minutes): 37 minutes Total Time Includes: Examination of the Patient, Discharge Planning, Medication Reconciliation, Communication With Other Providers and Other Discharge Plan Discharge Items Patient Disposition: Home - Home Health Services Reason For Visit: SOB Discharge Diagnosis: Acute on chronic respiratory failure with hypoxia Acute on chronic diastolic heart failure Acute Kidney Injury Activity: Resume your previous activity Exercise/Sports: Gradually increase as tolerated Non-emergency contact: Primary Care Provider and State Manager Call non-emergency contact if: you have any medication questions, your symptoms worsen, your pain is not controlled, your pain is worsening, your pain is unusual for you, your pain is concerning for you and you have a fever Follow-up/Referrals: Neri Hatch MD [Primary Care Provider] - Diet: Carb Consistent or DM2, Heart Healthy and Low Sodium (2gm) Ambulatory Orders: Basic Metabolic Panel (Routine) Timeframe: 1 Week Location: Determined by Patient Ordered By: Lukas Meyer Attending Provider Instructions: Follow-up with your primary care physician on January 31, 2020 at 9 AM as scheduled Follow-up with your pipe production worker Dr. Smith as advised Follow-up with your plant health care technician Dr. Lino for further evaluation and management of pulmonary nodules and discuss about your chest CT findings Get blood test(basic metabolic panel) in 1 week and follow-up with your primary care physician or pipe production worker. Plan to resume Ramipril 1.25 mg daily, based on your blood test results as recommended by your pipe production worker. Your spironolactone is decreased from 25 mg daily to 12.5 mg daily as recommended by your pipe production worker. Seek immediate medical attention if your symptoms reoccur or worsen Call your Primary Care doctor if any of the following symptoms or problems start or get worse: * Shortness of breath or difficulty breathing * Wake up at night short of breath * Chest pain * Cough * Swelling of your hands, feet, or legs * More fatigued or tired with your normal activity * Palpitations - sudden fast heart beats WEIGHT * Weigh yourself every morning after using the bathroom. * Use the same scale. * Wear the same amount of clothing. * Write your weight down on a chart. * Call your Primary Care doctor if you gain more than 2-3 pounds in 1-2 days. MEDICATIONS * Use this discharge instruction sheet for medication instructions. * Take your medications at the time your doctor ordered. * Do not skip a dose of your medicines. * If you miss a dose of medicine, take it as soon as possible, but DO NOT DOUBLE A DOSE. * Read your medicine information when you get home. * Know all of the side effects of your medicine. If in doubt, ask your pharmacist * Call your Primary Care doctor's office if you have any side effects. * Be sure all of your doctors know what medicine and herbs you take (including cold, flu, and herbal medicine). Take the following with you to your follow-up doctor appointments: * Weight Chart * Medication List * List of questions Do not drink excessive alcohol, beer or wine. Addtl Career Placement Services Counselor Provider Instructions: Nephrology Recommendations: continue Lasix 80 mg by mouth twice daily second dose 4 hrs at least after first dose and resume spironolactone but at lower 12.5 mg daily dose by mouth do not resume ramipril 1.25 mg daily by mouth until instructed to do so by kidney care provider -nephrology will order nonfasting bmp for approximately one week after hospital discharge -recommend patient keep nephrology october appointment for now but also get hospital follow up appointment with Dr Begum or SHASHANK Landry next 2-4 wks [facility] Pending Studies at Discharge: No Stand-Alone Forms: My [employer], Smoking Cessation Medications and DC Order Prescriptions: Continued [id number] [Trelegy Ellipta] 100-62.5-25 mcg blister with device 1 inh inhalation QAM RF: 0 atorvastatin 40 mg Tablet 40 mg PO HS RF: 0 Lantus U-100 Insulin 100 unit/mL Solution 30 - 40 unit SUBCUT QPM RF: 0 albuterol sulfate 2.5 mg /3 mL (0.083 %) Solution For Nebulization 2.5 mg INHALATION QID PRN (Reason: copd) RF: 0 metoprolol succinate 50 mg Tablet Extended Release 24 Hr 50 mg PO QAM RF: 0 omeprazole 40 mg Capsule,Delayed Release(Dr/Ec) 40 mg PO QAM RF: 0 aspirin [Aspirin Low Dose] 81 mg Tablet,Delayed Release (Dr/Ec) 81 mg PO QAM RF: 0 tramadol 50 mg Tablet 50 mg PO Q6H PRN (Reason: Pain) RF: 0 furosemide 80 mg Tablet 80 mg PO BID RF: 0 allopurinol 300 mg Tablet 450 mg PO QAM RF: 0 calcitriol 0.25 mcg Capsule 0.25 mcg PO QAM RF: 0 finasteride 5 mg Tablet 5 mg PO QAM RF: 0 ipratropium bromide 0.02 % Solution 2.5 ml INHALATION QID PRN (Reason: Wheezing) RF: 0 insulin aspart U-100 [Novolog Flexpen U-100 Insulin] 100 unit/mL Insulin Pen 1 dose SUBCUT TIDM RF: 0 colchicine 0.6 mg Capsule 0.6 mg PO DAILY PRN (Reason: GOUT FLARE UP) RF: 0 Changed spironolactone 25 mg Tablet 12.5 mg PO QAM Qty: 0 RF: 0 Discontinued ramipril 1.25 mg Capsule 1.25 mg PO QAM RF: 0 prednisone 20 mg Tablet 20 mg PO QAM RF: 0 Discharge Orders: Discharge Order (Routine); Ordered 01/27/20 Ordered By: Lukas Hyde/Other Patient Handouts: High Blood Sugar (Hyperglycemia), Managing Type 2 Diabetes Admission Data Admit Date/Time: 01/25/20 22:47 Attending Provider: Lukas Hinojosa Admit Provider: Orville Lerma Primary Care Provider: Neri Hatch Other Providers: Anay Begum ; Christian Calloway Other Interventions: Discharge Summary Assessment (RN) Last Done: 01/27/20 14:19
[2020-01-28] MEDS ORDERED: predniSONE 10 MG TABLET PO SCH (09:00)
== END 2020-01-27 14:50 | disposition home or self-care (01) | DRG 291 ==
LOC: ED 15:17 → 2E 22:47 → SUATTDRO 22:47 → 2E 01-26 01:20

== ENCOUNTER 2022-08-16 14:03 | Inpatient (IN) ==
--- NOTE | 2022-08-16 14:16 | ED Triage Note ---
Date of Service August 16, 2022 History of Present Illness This patient was briefly evaluated while in triage. An abbreviated physical exam was performed. This patient is a 76-year-old Male who presents to the ED for evaluation of increasing shortness of breath. His equine science instructor sent him here for eval of PE. No cough or cold symptoms. Physical Exam CONSTITUTIONAL: No acute distress. Well appearing. RESPIRATORY: Nonlabored breathing, no tachypnea. NEUROLOGIC: Alert and oriented X 4 with normal affect. Initial orders for labs and / or imaging were placed and patient was placed in the waiting area until a bed is available. Please see further documentation for the full ED course.
--- NOTE | 2022-08-16 15:25 | Electrocardiogram Report ---
Test Reason : Blood Pressure : / mmHG Vent. Rate : 099 BPM Atrial Rate : 102 BPM P-R Int : 000 ms QRS Dur : 116 ms QT Int : 390 ms P-R-T Axes : 000 -31 068 degrees QTc Int : 500 ms Poor data quality, interpretation may be adversely affected Atrial fibrillation with premature ventricular or aberrantly conducted complexes Left axis deviation Nonspecific ST abnormality Abnormal ECG Confirmed by Gadiel Burns ([id number]) on 08/16/2022 3:24:56 PM Referred By: Confirmed By:Jase Burns
[2022-08-16 15:30] LABS: Basophils # (auto) 0.04 K/uL (0-0.2); Basophils % (auto) 0.3 %; Eosinophils # (auto) 0.22 K/uL (0-0.50); Eosinophils % (auto) 1.6 %; Hematocrit (blood only) 33.9 % (42.0-52.0); Hemoglobin 10.9 g/dl (14.0-18.0); Immature Granulocytes # (auto) 0.03 K/uL (0.01-0.20); Immature Granulocytes % (auto) 0.2 %; Lymphocytes % (auto) 6.7 %; Mean Corpuscular Hemoglobin 31.1 pg (25.0-34.0); Mean Corpuscular Hgb Conc 32.2 g/dL (32.0-36.0); Mean Corpuscular Volume 96.6 fL (80.0-100.0); Mean Platelet Volume 11.5 fL (9.4-12.4); Monocytes # (auto) 0.83 K/uL (0.11-0.59); Monocytes % (auto) 6.2 %; Neutrophils # (auto) 11.47 K/uL (1.40-6.50); Platelet Count 196 K/uL (130-400); RDW Coefficient of Variation 17.2 % (11.5-14.5); RDW Standard Deviation 60.6 fL (36.4-46.3); Red Blood Count 3.51 M/uL (4.70-6.10); White Blood Count 13.49 K/ul (4.8-10.8)
[2022-08-16 15:41] LABS: Albumin Globulin Ratio 1.1 (0.9-2); Albumin Level 3.7 gm/dl (3.4-5.0); BUN Creatinine Ratio 31.7 (10-20); Bilirubin,Total 0.4 mg/dl (0.2-1.0); Calcium 9.5 mg/dl (8.5-10.1); Creatinine Clr Calc Pharmacy 29.1 ml/min; Est GFR (African American) 27.4 ml/min; Est GFR (Non-African American) 23.6 ml/min; Globulin 3.5 gm/dl (2.5-4.0); Potassium 3.5 mmol/L (3.5-5.1); Total Protein 7.2 gm/dl (6.0-8.3)
[2022-08-16 15:47] LABS: Troponin I High Sensitivity 19.2 pg/ml (0-20)
--- NOTE | 2022-08-16 15:49 | XRay Report ---
SINGLE VIEW CHEST CLINICAL HISTORY: Dyspnea FINDINGS: An AP, portable, upright chest radiograph is compared to study dated 07/06/2022 and correlate d with chest CT dated 02/10/2022. The patient is status post midline sternotomy. A left subclavian micah tral venous infusion port is unchanged in position. The heart is enlarged noting atherosclerotic calc ification of the thoracic aorta. The pulmonary vasculature is noncongested. Emphysema and chronic int erstitial thickening is similar to previous. A right perihilar mass lesion is unchanged. There are sm all pleural effusions with bibasilar scarring/atelectasis. Pleural calcification is again seen at the left lung base. No pneumothorax is identified. The skeletal structures are osteopenic. The bony thor ax is grossly intact. IMPRESSION: 1. Cardiomegaly and emphysema. 2. A right perihilar mass lesion is unchanged. 3. Small pleural effusions are similar to previous ACT 112: Negative or not required by law. Electronically signed by: Reggie Stone M.D. 08/16/2022 3:48 PM
[2022-08-16 15:52] LABS: INR 1.1 (0.9-1.1); Partial Thromboplastin Time 28.5 Seconds (21.0-31.0); Prothrombin Time 11.3 Seconds (9.0-12.0)
[2022-08-16 16:15] LABS: Adenovirus PCR Not Detected (NotDetected); Bordetella parapertussis PCR Not Detected (NotDetected); Bordetella pertussis PCR Not Detected (NotDetected); Chlamydia pneumoniae PCR Not Detected (NotDetected); Coronavirus 229E PCR Not Detected (NotDetected); Coronavirus CoV-2 (COVID19)PCR Not Detected (NotDetected); Coronavirus HKU1 PCR Not Detected (NotDetected); Coronavirus NL63 PCR Not Detected (NotDetected); Coronavirus OC43PCR Not Detected (NotDetected); Human Metapneumovirus PCR Not Detected (NotDetected); Influenza A PCR Not Detected (NotDetected); Influenza B PCR Not Detected (NotDetected); Mycoplasma pneumoniae PCR Not Detected (NotDetected); Parainfluenza Virus 1 PCR Not Detected (NotDetected); Parainfluenza Virus 2 PCR Not Detected (NotDetected); Parainfluenza Virus 3 PCR Not Detected (NotDetected); Parainfluenza Virus 4 PCR Not Detected (NotDetected); Respiratory Syncytial VirusPCR Not Detected (NotDetected); Rhinovirus/Enterovirus PCR Not Detected (NotDetected)
--- NOTE | 2022-08-16 17:38 | Emergency Department Note ---
Impression & Plan SOB (shortness of breath), Lung cancer, CHF (congestive heart failure), Pedal edema ED Provider Note NAME: Godwin CARROLL AGE: 76 SEX: M : 1945 ARRIVES VIA: Walk-In INFORMANT: [Patient] ED PROVIDER(S): [Reggie Jacinto MD] CHIEF COMPLAINT: DrKarma Referred HISTORY OF PRESENT ILLNESS: The patient is a 76-year-old male with stage IV lung cancer. He did have chemotherapy about a month ago but did not do well with it and has not had any since. He has had at least a month of increasing shortness of breath, especially with exertion. He has been wearing his nighttime oxygen during the day. No fever, no real increased cough. No chest pain. Patient was sent to the hospital today by his special forces engineer sergeant, Dr. Shaffer. There was concern for PE, there was mention of the possible need for hospitalization. PMHx/PSHx: See Below SOCIAL HISTORY: See Below. PHYSICAL EXAM: GENERAL: Patient is in no acute distress. HEENT: No acute trauma, normocephalic atraumatic, mucous membranes moist, no nasal congestion. NECK: No stridor, no adenopathy, no meningismus, trachea is midline. LUNGS: A few scattered crackles are heard, no wheezing, no obvious respiratory distress. Breath sounds are diminished bilaterally. Chest: There is a port along the left anterior chest wall. HEART: Without murmurs gallops or rubs, regular rate and rhythm. ABDOMEN: Soft, nontender, bowel sounds positive, no peritonitis. Colostomy noted on the right. EXTREMITIES: No cyanosis. Bilateral pedal edema worse on the right with some chronic skin change. NEUROLOGIC: Oriented x 3, no acute motor or sensory deficits, no focal weakness. SKIN: No rash, no jaundice, no diaphoresis. DIFFERENTIAL DIAGNOSIS: PE, CHF, worsening lung cancer, bronchitis or pneumonia, WI, anemia, electrolyte imbalance, among others. EMERGENCY DEPARTMENT COURSE/PROCEDURES: Prior/Outside records reviewed: Recent pulmonary note. ECG per my interpretation: Indication was shortness of breath. The ECG shows significant baseline artifact making rhythm interpretation difficult although, I suspect a sinus rhythm with PVCs. A fairly regular atrial fibrillation was also thought a possibility. There is no ST elevation. QTc is 500. Repeat ECG per my interpretation: Indication was shortness of breath. The ECG shows a sinus rhythm with a first-degree AV block. There is some nonspecific ST change. The rate is 91. There is no ST elevation, a PVC is seen. QTc is 526. Continuous Cardiac Monitoring per my interpretation: An order was placed for continuous cardiac monitoring. The monitor shows a rate of 89 with sinus rhythm with a first-degree AV block and some PVCs. Critical Care Note: I have personally spent 45 minutes of critical care time in the direct management of this patient. This includes bedside care, interpretation of diagnostic studies, and testing, discussion with consultants, patient, and family members, and other required patient management activities. This 45 minutes is in excess of all separately billable procedures. MEDICAL DECISION MAKING: There is a mild leukocytosis, this could be consistent with infection or just t he stress of his presentation. He is anemic but carries a history of anemia. There is a normal platelet count. No coagulopathy. Creatinine is high at 2.5 although, this appears baseline looking back at previous testing. No electrolyte abnormality in need of emergent correction. Alk phos was slightly elevated, the remaining liver enzymes were unremarkable. BNP was elevated consistent with CHF and fluid overload. ECG shows a sinus rhythm with a first- degree AV block, no obvious acute ischemia. Cardiac enzyme testing x1 is not consistent with acute cardiac injury. Respiratory bio fire was completely negative. Chest film per my review shows some cardiomegaly and what appears to be some CHF. There was no pneumonia. A right perihilar lesion was seen as noted before. Bilateral lower extremity venous ultrasound did not show evidence for DVT. On exam, there were some crackles across his lung bradley. Patient was given IV Lasix, 80 mg. The patient had been sent in with concern for PE. A CT of the chest cannot be performed because of the high creatinine. Certainly, the patient could have a VQ scan tomorrow if still felt indicated. I did speak with the patient, I did speak with case management, given his dyspnea, given his increasing oxygen need, given his pedal edema and the concerns for fluid overload/CHF, hospitalization is indicated. DISPOSITION: Patient's presentation and findings warrant a hospital stay. Past Med/Surg History Medical History Advanced COPD Anemia HX Anxiety Arthritis NECK Back problem HX INJECTIONS, POSSIBLE NEED FOR SX Anthony's esophagus BPH (benign prostatic hyperplasia) CAD (coronary artery disease) Last cardiac cath 08/09/2011 and demonstrated severe [place] vessel disease and an occluded SVG to the OM2. All other grafts noted to be patent at that time. 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 Smith Congestive heart failure chronic combined systolic and diastolic EF 45% 2011 Diabetes mellitus, type 2 IDDM Dyslipidemia GERD (gastroesophageal reflux disease) Gout HX History of colon polyps History of radiation therapy 5 TX A FEW YRS AGO FOR LUNG NODULES..."MADE IT GROW MORE" History of renal calculi HTN (hypertension) Ileostomy, has currently PER PT: SWELLED UP AROUND WHERE BAG HOOKS UP "RUPTURED" NO PROBLEMS WITH FUNCTIONING , DR AWARE...POSSIBLE NEED FOR UPCOMING SX Lung cancer (07/23/20) Right Lower Lobe - Adenocarcinoma Lung nodules ? DETAILS/REASON FOR UPCOMING PROCEDURE Metastatic primary lung cancer MRSA (methicillin resistant Staphylococcus aureus) Per infection control, 02/2018: "Patient has a history of MRSA in a wound and a nasal screen in 2015. Patient requires contact precautions." Myocardial Infarction 2005 - CABG X5 VESSELS. Subsequent caths with stenting 2005 and 2006. 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 History of cardiac cath 2006 PCI of LCx 2007 PCI of LAD 2011 severe [place] vessel dz and an occluded SVG to OM2 graft. All other grafts patent. History of colonoscopy History of coronary artery bypass graft X5 VESSELS AT [facility] 2005 History of esophagogastroduodenoscopy (EGD) History of surgery PROCEDURE LAST YR [facility] - ? ENDOBRONCHIAL U/S - PT NOT SURE FINDINGS History of total colectomy for Swisher's syndrome History of total hip arthroplasty RIGHT HIP -- WITH MULTIPLE REVISIONS Port-A-Cath in place (07/06/22) Access port placement with use of fluoroscopy. Status post coronary artery bypass grafting "x 2004" Family History Father , Passed age 92 of metastatic prostate cancer No problems noted. Mother , Passed age 87 of chronic problems No problems noted. Brother , Passed age 54 of [place] Heart disease Sister Breast cancer Son No problems noted. Son No problems noted. Daughter No problems noted. Other No family history of adverse response to anesthesia Social History Smoking Status: Former smoker Tobacco Type: Cigarettes Age Started Using Tobacco: 13; Age Quit Using Tobacco: 59; packs per day: 3; Second Hand Exposure: Yes (parents smoked); Hx Alcohol Use: No Hx Substance Use: No Preferred Language: Tuvaluan Communication Ability: Effective Visual Impairment: No Limitations Hearing Ability: Normal Director Private Music Therapy Agency Required: No Beliefs That Will Affect Care: None marital status: Current Living Situation: Spouse Current Living Situation Comment: Lives with current occupational status: retired 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 How many Children do You have: 3 Feels Safe at Home: Yes Childhood Exposure to Second-Hand Smoke: Yes caffeine: Yes (2-3 cups of coffee/day ) during the past year weight has: remained stable Assistive Devices: Denture - Upper, Denture - Lower, Oxygen - at Night and Walker Allergies Allergies Allergy/AdvReac Type Severity Reaction Status Date / Time No Known Allergies Allergy U Verified 08/05/22 16:20 Home Meds Home Medications Medication Instructions Recorded Confirmed albuterol sulfate 2.5 mg/3 mL 2.5 mg inhalation Q4 PRN cough,SOB 03/08/18 08/16/22 (0.083 %) solution for nebulization allopurinol 300 mg tablet 300 mg PO QAM 03/08/18 08/16/22 aspirin 81 mg tablet,delayed 81 mg PO QAM 03/08/18 08/16/22 release (Dane Low Dose Aspirin) atorvastatin 40 mg tablet 40 mg PO HS 03/08/18 08/16/22 furosemide 80 mg tablet 80 mg PO BID 03/08/18 08/16/22 insulin aspart U-100 100 unit/mL 1 dose subcut BID 03/08/18 08/16/22 (3 mL) subcutaneous pen (Novolog FlexPen U-100 Insulin aspart) insulin glargine 100 unit/mL 40 unit subcut HS 03/08/18 08/16/22 subcutaneous solution (Lantus U-100 Insulin) metoprolol succinate 50 mg 50 mg PO UD 03/08/18 08/16/22 tablet,extended release 24 hr omeprazole 40 mg capsule,delayed 40 mg PO QAM 03/08/18 08/16/22 release cholecalciferol (vitamin D3) 50 50 mcg PO QAM 12/04/20 08/16/22 mcg (2,000 unit) capsule famotidine 20 mg tablet 20 mg PO HS 12/04/20 08/16/22 albuterol sulfate 90 mcg/actuation 2 puff inhalation QID PRN 02/12/21 08/16/22 aerosol inhaler (ProAir HFA) Shortness Of Breath metolazone 5 mg tablet 5 mg PO WK 02/12/21 08/16/22 promethazine 25 mg tablet 25 mg PO Q6H PRN NAUSEA/VOMITING 02/12/21 08/16/22 sertraline 50 mg tablet 50 mg PO QAM 02/03/22 08/16/22 cholecalciferol (vitamin D3) 50 50 mcg PO DAILY 08/16/22 08/16/22 mcg (2,000 unit) capsule (Vitamin D3) guaifenesin 600 mg tablet, 600 mg PO AMHS 08/16/22 08/16/22 extended release 12 hr (Mucinex) hydroxyzine HCl 25 mg tablet 25 mg PO TID PRN Anxiety 08/16/22 08/16/22 ipratropium 0.5 mg-albuterol 3 mg 3 ml inhalation Q4H PRN cough,SOB 08/16/22 08/16/22 (2.5 mg base)/3 mL nebulization soln loperamide 2 mg tablet 2 mg PO QID PRN Diarrhea 08/16/22 08/16/22 Previous Rx's Medication Instructions Recorded spironolactone 25 mg tablet 12.5 mg PO QAM #0 tabs 01/27/20 finasteride 5 mg tablet 5 mg PO QAM #90 tabs 12/01/21 Portable Oxygen #1 ea 01/29/22 fluticasone fur. 100 mcg-umeclid 1 inh inhalation DAILY #60 ea 08/16/22 62.5 mcg-vilant 25 mcg inhalat.powder (Trelegy Ellipta) Results & Data (ED) Vital Signs Vital Signs - 24 hr 08/16/22 14:11 08/16/22 16:59 08/16/22 16:56 Temperature 36.6 C Temperature Source Temporal Artery Scan Pulse Rate 99 H 92 H 91 H Pulse Rate from SpO2 Sensor 91 H Pulse Rhythm Regular Pulse Strength Normal Respiratory Rate 22 20 Respiratory Effort / Characteristics Non-Labored Spontaneous Respiratory Depth Normal Respiratory Pattern Regular Blood Pressure 117/69 Blood Pressure Mean 85 Blood Pressure Position Sitting Pulse Oximetry 95 96 Oxygen Delivery Method Room Air Sepsis Recent Fever Within 48 Hours No Sepsis New/Unexplained Change in Mental Status No Sepsis Action Taken by Nursing No Action Required 08/16/22 17:00 08/16/22 17:00 08/16/22 17:30 Temperature Temperature Source Pulse Rate 89 Pulse Rate from SpO2 Sensor 88 Pulse Rhythm Pulse Strength Respiratory Rate 22 Respiratory Effort / Characteristics Respiratory Depth Respiratory Pattern Blood Pressure 127/67 131/77 Blood Pressure Mean 87 95 Blood Pressure Position Pulse Oximetry 97 Oxygen Delivery Method Room Air Sepsis Recent Fever Within 48 Hours Sepsis New/Unexplained Change in Mental Status Sepsis Action Taken by Nursing 08/16/22 17:30 08/16/22 19:17 08/16/22 19:18 Temperature Temperature Source Pulse Rate 88 91 H Pulse Rate from SpO2 Sensor 85 Pulse Rhythm Pulse Strength Respiratory Rate 18 Respiratory Effort / Characteristics Respiratory Depth Respiratory Pattern Blood Pressure 117/71 Blood Pressure Mean 86 Blood Pressure Position Pulse Oximetry 95 Oxygen Delivery Method Sepsis Recent Fever Within 48 Hours Sepsis New/Unexplained Change in Mental Status Sepsis Action Taken by Nursing 08/16/22 19:18 08/16/22 19:30 08/16/22 19:30 Temperature Temperature Source Pulse Rate 91 H Pulse Rate from SpO2 Sensor 91 H 89 Pulse Rhythm Pulse Strength Respiratory Rate 23 Respiratory Effort / Characteristics Respiratory Depth Respiratory Pattern Blood Pressure 128/80 Blood Pressure Mean 96 Blood Pressure Position Pulse Oximetry 95 93 Oxygen Delivery Method Room Air Sepsis Recent Fever Within 48 Hours Sepsis New/Unexplained Change in Mental Status Sepsis Action Taken by Nursing 08/16/22 20:00 08/16/22 20:00 Temperature Temperature Source Pulse Rate Pulse Rate from SpO2 Sensor 89 Pulse Rhythm Pulse Strength Respiratory Rate Respiratory Effort / Characteristics Respiratory Depth Respiratory Pattern Blood Pressure 132/81 Blood Pressure Mean 98 Blood Pressure Position Pulse Oximetry 94 Oxygen Delivery Method Sepsis Recent Fever Within 48 Hours Sepsis New/Unexplained Change in Mental Status Sepsis Action Taken by Jail Medications Current Medication List: was personally reviewed by me Laboratory Data Attestation: I reviewed the patient's lab results. 08/16/22 14:55 08/16/22 14:55 Lab Results 08/16/22 08/16/22 08/16/22 Range/Units 14:55 14:55 14:55 WBC 13.49 H (4.8-10.8) K/ul RBC 3.51 L (4.70-6.10) M/uL Hgb 10.9 L (14.0-18.0) g/dl Hct 33.9 L (42.0-52.0) % MCV 96.6 (80.0-100.0) fL MCH 31.1 (25.0-34.0) pg MCHC 32.2 (32.0-36.0) g/dL RDW Std Deviation 60.6 H (36.4-46.3) fL RDW Coeff of Josiah 17.2 H (11.5-14.5) % Plt Count 196 (130-400) K/uL MPV 11.5 (9.4-12.4) fL Immature Gran % (Auto) 0.2 % Neut % (Auto) 85.0 % Lymph % (Auto) 6.7 % [place] % (Auto) 6.2 % Eos % (Auto) 1.6 % Baso % (Auto) 0.3 % Neut # (Auto) 11.47 H (1.40-6.50) K/uL Lymph # (Auto) 0.90 L (1.2-3.4) K/uL Screven # (Auto) 0.83 H (0.11-0.59) K/uL Eos # (Auto) 0.22 (0-0.50) K/uL Baso # (Auto) 0.04 (0-0.2) K/uL Immature Gran # (Auto) 0.03 (0.01-0.20) K/uL PT 11.3 (9.0-12.0) Seconds INR 1.1 (0.9-1.1) APTT 28.5 (21.0-31.0) Seconds PTT Ratio 1.0 Sodium 137 (136-145) mmol/L Potassium 3.5 (3.5-5.1) mmol/L Chloride 99 (98-107) mmol/L Carbon Dioxide 28 (21-32) mmol/L Anion Gap 10 (3-11) BUN 80 H (6-23) mg/dl Creatinine 2.52 H (0.6-1.4) mg/dl Est Cr Clr Drug Dosing 29.1 ml/min Est GFR ( Amer) 27.4 ml/min Est GFR (Non-Af Amer) 23.6 ml/min BUN/Creatinine Ratio 31.7 H (10-20) Glucose 117 H (70-99(Fasting)) mg/dl Calcium 9.5 (8.5-10.1) mg/dl Total Bilirubin 0.4 (0.2-1.0) mg/dl AST 12 L (13-39) U/L ALT 11 (7-52) U/L Alkaline Phosphatase 157 H (34-104) U/L Troponin I High Sens 19.2 (0-20) pg/ml B-Natriuretic Peptide (0-100) pg/ml Total Protein 7.2 (6.0-8.3) gm/dl Albumin 3.7 (3.4-5.0) gm/dl Globulin 3.5 (2.5-4.0) gm/dl Albumin/Globulin Ratio 1.1 (0.9-2) Adenovirus (PCR) (NotDetected) B. pertussis DNA (PCR) (NotDetected) B.parapertussis DNA PCR (NotDetected) C. pneumoniae DNA (PCR) (NotDetected) Coronavirus OC43 (PCR) (NotDetected) Coronavirus HKU1 (PCR) (NotDetected) Coronavirus 229E (PCR) (NotDetected) SARS-CoV-2 (PCR) (NotDetected) Coronavirus NL63 (PCR) (NotDetected) Human Metapneumovir PCR (NotDetected) Influenza Type A (PCR) (NotDetected) Influenza Type B (PCR) (NotDetected) M. pneumoniae (PCR) (NotDetected) Parainfluenza 1 (PCR) (NotDetected) Parainfluenza 2 (PCR) (NotDetected) Parainfluenza 3 (PCR) (NotDetected) Parainfluenza 4 (PCR) (NotDetected) RSV (PCR) (NotDetected) Entero/Rhino (PCR) (NotDetected) 08/16/22 08/16/22 Range/Units 14:57 19:27 WBC (4.8-10.8) K/ul RBC (4.70-6.10) M/uL Hgb (14.0-18.0) g/dl Hct (42.0-52.0) % MCV (80.0-100.0) fL MCH (25.0-34.0) pg MCHC (32.0-36.0) g/dL RDW Std Deviation (36.4-46.3) fL RDW Coeff of Josiah (11.5-14.5) % Plt Count (130-400) K/uL MPV (9.4-12.4) fL Immature Gran % (Auto) % Neut % (Auto) % Lymph % (Auto) % Screven % (Auto) % Eos % (Auto) % Baso % (Auto) % Neut # (Auto) (1.40-6.50) K/uL Lymph # (Auto) (1.2-3.4) K/uL Screven # (Auto) (0.11-0.59) K/uL Eos # (Auto) (0-0.50) K/uL Baso # (Auto) (0-0.2) K/uL Immature Gran # (Auto) (0.01-0.20) K/uL PT (9.0-12.0) Seconds INR (0.9-1.1) APTT (21.0-31.0) Seconds PTT Ratio Sodium (136-145) mmol/L Potassium (3.5-5.1) mmol/L Chloride (98-107) mmol/L Carbon Dioxide (21-32) mmol/L Anion Gap (3-11) BUN (6-23) mg/dl Creatinine (0.6-1.4) mg/dl Est Cr Clr Drug Dosing ml/min Est GFR ( Amer) ml/min Est GFR (Non-Af Amer) ml/min BUN/Creatinine Ratio (10-20) Glucose (70-99(Fasting)) mg/dl Calcium (8.5-10.1) mg/dl Total Bilirubin (0.2-1.0) mg/dl AST (13-39) U/L ALT (7-52) U/L Alkaline Phosphatase (34-104) U/L Troponin I High Sens (0-20) pg/ml B-Natriuretic Peptide 216 H (0-100) pg/ml Total Protein (6.0-8.3) gm/dl Albumin (3.4-5.0) gm/dl Globulin (2.5-4.0) gm/dl Albumin/Globulin Ratio (0.9-2) Adenovirus (PCR) Not Detected (NotDetected) B. pertussis DNA (PCR) Not Detected (NotDetected) B.parapertussis DNA PCR Not Detected (NotDetected) C. pneumoniae DNA (PCR) Not Detected (NotDetected) Coronavirus OC43 (PCR) Not Detected (NotDetected) Coronavirus HKU1 (PCR) Not Detected (NotDetected) Coronavirus 229E (PCR) Not Detected (NotDetected) SARS-CoV-2 (PCR) Not Detected (NotDetected) Coronavirus NL63 (PCR) Not Detected (NotDetected) Human Metapneumovir PCR Not Detected (NotDetected) Influenza Type A (PCR) Not Detected (NotDetected) Influenza Type B (PCR) Not Detected (NotDetected) M. pneumoniae (PCR) Not Detected (NotDetected) Parainfluenza 1 (PCR) Not Detected (NotDetected) Parainfluenza 2 (PCR) Not Detected (NotDetected) Parainfluenza 3 (PCR) Not Detected (NotDetected) Parainfluenza 4 (PCR) Not Detected (NotDetected) RSV (PCR) Not Detected (NotDetected) Entero/Rhino (PCR) Not Detected (NotDetected) Administered Medications Discontinued Medications Albuterol (Albut/Ipratrop 3mg/0.5mg Neb 3 Ml Vial) 3 ml NEB NOW STA; Protocol Stop: 08/16/22 20:54 Last Admin: 08/16/22 21:07 Dose: 3 ml Documented By: MELANIE Furosemide (Furosemide 40 Mg/4 Ml Vial) 80 mg IV ONE ONE Stop: 08/16/22 19:32 Last Admin: 08/16/22 19:38 Dose: 80 mg Documented By: MELANIE Imaging Data Radiologist's Impression: Chest X-Ray 08/16/22 14:16 SINGLE VIEW CHEST CLINICAL HISTORY: Dyspnea FINDINGS: An AP, portable, upright chest radiograph is compared to study dated 07/06/2022 and correlated with chest CT dated 02/10/2022. The patient is status post midline sternotomy. A left subclavian central venous infusion port is unchanged in position. The heart is enlarged noting atherosclerotic calcification of the thoracic aorta. The pulmonary vasculature is noncongested. Emphysema and chronic interstitial thickening is similar to previous. A right perihilar mass lesion is unchanged. There are small pleural effusions with bibasilar scarring/atelectasis. Pleural calcification is again seen at the left lung base. No pneumothorax is identified. The skeletal structures are osteopenic. The bony thorax is grossly intact. IMPRESSION: 1. Cardiomegaly and emphysema. 2. A right perihilar mass lesion is unchanged. 3. Small pleural effusions are similar to previous ACT 112: Negative or not required by law. Electronically signed by: Reggie Stone M.D. 08/16/2022 3:48 PM Venous Doppler Study 08/16/22 16:55 US venous doppler LE CLINICAL HISTORY: poss clots TECHNIQUE: Right lower extremity real-time compression venous ultrasound with Color Doppler imaging. Utilizing real-time ultrasonic imaging multiple real time high-resolution ultrasonic images with compression and noncompression maneuvers of the deep venous system in addition to color doppler imaging were performed from the common femoral vein through the proximal calf veins. COMPARISON: Comparison is made to bilateral lower extremity Doppler ultrasound 01/25/2020 FINDINGS/IMPRESSION: Currently there is normal compressibility of the deep venous system from the common femoral vein through the proximal calf veins. Limited visualization of the calf veins due to patient body habitus. ACT 112: Negative or not required by law. Electronically signed by: Isaac Martino M.D. 08/16/2022 6:28 PM Discharge Plan Visit Data Chief Complaint: Referred by Doctor Stated Complaint: REF BY DOC,POSSIBLE BLOOD CLOT ED Provider: Reggie Jacinto Discharge Problem: SOB (shortness of breath), Lung cancer, CHF (congestive heart failure), Pedal edema Patient Disposition: Admitted As Inpatient Condition: Fair Discharge Instructions Interventions: ED Discharge Assessment Last Done: 08/16/22 23:29 Lung cancer Qualifiers: Laterality: unspecified laterality Lung location: unspecified part of lung Qualified Code(s): C34.90 - Malignant neoplasm of unspecified part of unspecified bronchus or lung CHF (congestive heart failure) Qualifiers: Heart failure type: unspecified Heart failure chronicity: acute Qualified Code(s): I50.9 - Heart failure, unspecified
--- NOTE | 2022-08-16 18:30 | Ultrasound Report ---
US venous doppler LE BI CLINICAL HISTORY: poss clots TECHNIQUE: Right lower extremity real-time compression venous ultrasound with Color Doppler imaging. Utilizing real-time ultrasonic imaging multiple real time high-resolution ultrasonic images with comp ression and noncompression maneuvers of the deep venous system in addition to color doppler imaging w ere performed from the common femoral vein through the proximal calf veins. COMPARISON: Comparison is made to bilateral lower extremity Doppler ultrasound 01/25/2020 FINDINGS/IMPRESSION: Currently there is normal compressibility of the deep venous system from the common femoral vein thro ugh the proximal calf veins. Limited visualization of the calf veins due to patient body habitus. ACT 112: Negative or not required by law. Electronically signed by: Isaac Martino M.D. 08/16/2022 6:28 PM
[2022-08-16] MEDS ORDERED: FUROSEMIDE 40 MG/4 ML VIAL IV ONE (19:31)
[2022-08-16] MEDS ORDERED: ALBUT/IPRATROP 3MG/0.5MG NEB 3 ML VIAL NEB STA (20:53)
--- NOTE | 2022-08-16 22:24 | History and Physical Report ---
DATE OF ADMISSION: 08/16/2022 CHIEF COMPLAINT: Shortness of breath. Referred by pulmonary. HISTORY OF PRESENT ILLNESS: This is a 76-year-old male with past medical history significant for type 2 diabetes, chronic gout, hyperparathyroidism, history of COPD, history of pleural effusions, history of chronic combined systolic and diastolic CHF, chronic kidney disease stage IV, anemia of chronic kidney disease, history of CAD, status post CABG, hypertension, Anthony's esophagus, [place] syndrome, BPH, venous stasis dermatitis of both lower extremities, history of colostomy hernia, status post ileostomy status, generalized anxiety disorder, history of metastatic primary lung cancer. Started chemotherapy a month ago, but could not tolerate it. Currently not on any chemotherapy. He was having ongoing shortness of breath for several months. He went to see pulmonary today who advised him to come to the hospital to rule out any PE. The patient uses oxygen while sleeping. He says walking 5-6 feet makes him short of breath. He sleeps in a recliner. He has chronic swelling in the lower extremities, hemodynamically stable. Currently, saturating okay on room air. Respiratory BioFire is negative. Lower extremity venous Doppler was negative. Chest x-ray showed somewhat CHF. Denies any fevers or chills. Has some cough. No nausea, no vomiting, no chest pain, no abdominal pain. Appetite is okay. No difficulty swallowing. Denies any headache. No blurred visions, no runny nose, no sore throat. Normal bowel and bladder movements. ALLERGIES: No known drug allergies. PAST MEDICAL HISTORY: As mentioned above. PAST SURGICAL HISTORY: Bronchoscopy with biopsy, bilateral multiple bronchoscopies, multiple colonoscopies, dental surgery, multiple EGDs, EGD with biopsy, total colectomy with ileostomy, right total hip replacement. MEDICATIONS: The patient is on albuterol 2 puffs inhalation q.i.d. p.r.n., allopurinol 300 mg p.o. a.m., aspirin 81 mg p.o. a.m., atorvastatin 40 mg p.o. at bedtime, vitamin D 50 mcg p.o. a.m., famotidine 20 mg p.o. a.m., finasteride 5 mg p.o. daily, fluticasone/umiclid1 inhalation daily, Lasix 80 mg p.o. b.i.d., NovoLog t.i.d., Lantus 40 units at bedtime, ipratropium bromide inhalation q.i.d. p.r.n., metolazone 5 mg p.o. weekly p.r.n., metoprolol succinate 50 mg in a.m. and 25 mg in p.m., omeprazole 40 mg p.o. a.m., sertraline 50 mg p.o. a.m., spironolactone 12.5 mg p.o. a.m. FAMILY HISTORY: Significant for father had prostate cancer, brother has UT, father has UT. SOCIAL HISTORY: . Quit smoking in 2004, smoked 3 packs a day for 35 years. No alcohol use. No drug use. REVIEW OF SYSTEMS: As per HPI. Rest of the review of systems is negative. PHYSICAL EXAMINATION: GENERAL: The patient is obese, not in acute distress. VITAL SIGNS: Temperature 36.6, pulse 91, respiratory rate 23, blood pressure 117/71, oxygen 95% on room air. HEENT: Pupils equal, round and reactive to light. Oral mucosa moist. NECK: No JVD, no neck masses. CARDIOVASCULAR: S1 and S2 heard. Regular rate and rhythm. No murmur, no gallop. RESPIRATORY SYSTEM: Normal AP diameter. No accessory muscle use. No wheezing or crackles. ABDOMEN: Soft, bowel sounds present. Ileostomy bag seen. Nontender. CENTRAL NERVOUS SYSTEM: Alert and oriented. Speech is clear. Obeys simple commands. Moves extremities. EXTREMITIES: Bilateral lower extremity chronic skin changes, chronic venous stasis seen with +2 edema seen. Mild erythematous changes. LABORATORY DATA: WBC 13.4, hemoglobin 10.1, hematocrit 33.9, platelets 196. PT 11.3, INR 1.1, APTT 28.5. Sodium 137, potassium 3.5, chloride 99, bicarbonate 28, BUN 80, creatinine 2.5, serum glucose 117, calcium 9.5, total bilirubin 0.4, AST 12, ALT 11, alkaline phosphatase 157. Troponin I high sensitivity 19.2. BNP 216. Respiratory BioFire negative. Venous Doppler study: No acute findings. Chest x-ray: Cardiomegaly and emphysema. Right perihilar mass lesion is unchanged, small pleural effusions are similar. EKG: Atrial fibrillation with premature ventricular conducted complexes, left axis deviation, nonspecific ST abnormalities. ASSESSMENT AND PLAN: This is a 76-year-old male who presents with shortness of breath. 1. Shortness of breath, multifactorial. The patient has possible [id number] systolic and diastolic congestive heart failure. The patient is on p.o. Lasix 80 mg b.i.d., received IV Lasix 80 mg in the Emergency Room. We will continue with IV Lasix 80 b.i.d. Follow echocardiogram. Follow intakes and outputs, daily weights. Continue his home nebulization. Pulmonary concerned about pulmonary embolism. Lower extremity Doppler was negative for deep venous thrombosis. We will rule out with a V/Q scan. Pulmonary and cardiac consult in the a.m. Closely monitor in the telemetry floor. 2. New atrial fibrillation. Rate seems under control. Continue his home metoprolol, we will start on low-dose IV heparin. Await cardiology inputs. 3. Lung cancer. Received one chemotherapy last month, could not tolerate it. Further management as per hematology/oncology and pulmonary. 4. History of chronic obstructive pulmonary disease. Continue home inhalers and nebulizations. 5. Type 2 diabetes. Continue his Lantus 40 units at bedtime and place him on insulin sliding scale. Follow the blood sugars, follow HbA1c levels. 6. Chronic kidney disease stage IV, presents with creatinine of 2.5, seems to be at baseline. We will follow the laboratories. Getting IV Lasix. If any concerns, consult nephrology. 7. Anemia of chronic kidney disease. Hemoglobin 10., seems to be stable. We will follow the laboratories. 8. Chronic gout, on allopurinol. 9. History of coronary artery disease, status post coronary artery bypass grafting. On aspirin, statin, and beta chau. 10. Benign prostatic hypertrophy, on finasteride. We will monitor for any urinary retention. 11. Gastroesophageal reflux disease, on omeprazole. 12. Depression, on sertraline. We will also continue spironolactone. 13. Hyperlipidemia, on statin. 14. Anthony's esophagus, on proton pump inhibitor. 15 Status post ileostomy status. 16. Deep venous thrombosis prophylaxis, place him on low-dose IV heparin. DISPOSITION: Closely monitor in the tele floor. Level 1, full code as per my discussion with the patient. Job ID: [id number] [facility]
[2022-08-16] MEDS ORDERED: POLYETHYLENE (MIRALAX) 17 GM PACK PO PRN (23:29)
[2022-08-16] MEDS ORDERED: GLUCOSE 10 TAB/TUBE PO PRN (23:29)
[2022-08-16] MEDS ORDERED: NITROGLYCERIN SL 0.4 MG/TAB TAB SL PRN (23:29)
[2022-08-16] MEDS ORDERED: CARBOHYDRATES FOR HYPOGLYCEMIA PO PRN (23:29)
[2022-08-16] MEDS ORDERED: PHARMACY GLYCEMIC MGMT CONSULT PRN (23:29)
[2022-08-16] MEDS ORDERED: GLUCAGON FOR INJ 1 MG VIAL SQ PRN (23:29)
[2022-08-16] MEDS ORDERED: GLUCOSE 40% GEL 15 GM TUBE PO PRN (23:29)
[2022-08-16] MEDS ORDERED: DEXTROSE 50% 50 ML SYRINGE IV PRN (23:29)
[2022-08-16] MEDS ORDERED: ALBUTEROL HFA 8 GM INHALER INH PRN (23:29)
[2022-08-16] MEDS ORDERED: ACETAMINOPHEN 325 MG TAB PO PRN (23:29)
[2022-08-17] MEDS: HEPARIN SODIUM/DEXTROSE 25,000 UNITS/500 ML BAG IV SCH ×3 (00:33→22:56)
[2022-08-17] MEDS: INSULIN ASPART PER UNIT CHARGE SC SCH ×5 (00:34→20:33)
[2022-08-17] MEDS: LANTUS PER UNIT CHARGE SQ SCH ×2 (00:35→20:34)
[2022-08-17] MEDS: ATORVASTATIN 40 MG TAB PO SCH ×2 (00:36→20:32)
[2022-08-17] MEDS: ALBUT/IPRATROP 3MG/0.5MG NEB 3 ML VIAL NEB PRN ×2 (00:49→05:18)
[2022-08-17] MEDS ORDERED: INSULIN ASPART PER UNIT CHARGE SC ONE (04:00)
[2022-08-17 06:44] LABS: Basophils # (auto) 0.04 K/uL (0-0.2); Basophils % (auto) 0.4 %; Eosinophils # (auto) 0.19 K/uL (0-0.50); Eosinophils % (auto) 1.8 %; Hematocrit (blood only) 35.2 % (42.0-52.0); Hemoglobin 11.2 g/dl (14.0-18.0); Immature Granulocytes # (auto) 0.04 K/uL (0.01-0.20); Immature Granulocytes % (auto) 0.4 %; Lymphocytes # (auto) 1.27 K/uL (1.2-3.4); Lymphocytes % (auto) 11.9 %; Mean Corpuscular Hgb Conc 31.8 g/dL (32.0-36.0); Mean Corpuscular Volume 97.5 fL (80.0-100.0); Mean Platelet Volume 11.6 fL (9.4-12.4); Monocytes # (auto) 0.64 K/uL (0.11-0.59); Neutrophils # (auto) 8.51 K/uL (1.40-6.50); Neutrophils % (auto) 79.5 %; Platelet Count 193 K/uL (130-400); RDW Coefficient of Variation 16.7 % (11.5-14.5); Red Blood Count 3.61 M/uL (4.70-6.10); White Blood Count 10.69 K/ul (4.8-10.8)
[2022-08-17 06:55] LABS: BUN Creatinine Ratio 33.3 (10-20); Calcium 9.8 mg/dl (8.5-10.1); Creatinine Clr Calc Pharmacy 30.2 ml/min; Est GFR (African American) 28.6 ml/min; Est GFR (Non-African American) 24.7 ml/min; Magnesium 1.9 mg/dl (1.7-2.4); Potassium 3.4 mmol/L (3.5-5.1)
[2022-08-17 07:26] LABS: Partial Thromboplastin Ratio 1.2; Partial Thromboplastin Time 32.9 Seconds (21.0-31.0)
[2022-08-17 07:47] LABS: Estimated Average Glucose 169 mg/dl; Hemoglobin A1C 7.5 % (4.5-5.6)
[2022-08-17] MEDS ORDERED: HEPARIN SOD (PORCINE) 1000 UNIT/ML IV ONE ×2 (08:21→15:45)
[2022-08-17] MEDS ORDERED: NON-FORMULARY MEDICATION (Fluticasone-Umeclidin-Vilanter [Trelegy Ellipta] 100-62.5-25 mcg INH SCH (09:00)
[2022-08-17] MEDS ORDERED: FUROSEMIDE 40 MG/4 ML VIAL IV SCH (09:00)
--- NOTE | 2022-08-17 09:16 | Cardiology Consultation ---
Date of Consultation August 17, 2022 Assessment & Plan (1) SOB (shortness of breath): (2) Lung cancer: (3) Advanced COPD: (4) Physical debility: (5) Metastatic primary lung cancer: Plan medically complex 76 yo M sent from outpatient pulmonary office for worsening sob and failure to thrive at home at this point, I do not see any significant cardiac contributors to his worsening sob will defer further workup and management to our pulmonary colleagues. cont outpt cardiac medical regimen EKG shows sinus rhythm with PACs and PVCs History of Present Illness Reason for Consultation: sob Requesting Physician: FRANKLYN Attending Physician: Jae Khan MD History of Present Illness Medically complex 76 year old male sent by digital community manager to ER for worsening shortness of breath and r/o PE. he was seen in follow-up today for his advanced lung carcinoma. He was found to be increase willingly short of breath and hypoxic and he was sent to the ER PMHX as per most recent cardiology visit: Past Medical/Surgical History: 1. ASCVD 1. History of myocardial infarction, transfer from [facility] to [place] in 2004 where cardiac catheterization revealed multivessel CAD. 2. Status post CABG x 5 in 2004 with a SVG to the PDA, SVG to the OM1, SVG to the OM2, SVG to the D1, and a KEMP to the LAD 3. Status post PCI with stenting of the LCX on 06/28/2005 4. Status post PCI with stenting to the LAD in June 2006 5. Last cardiac catheterization transpired on 08/09/2011 and demonstrated severe [place] vessel disease and an occluded SVG to the OM2. All other grafts noted to be patent at that time. Mild reduction in LVEF noted at the time of cath. LVEDP noted to be normal. 2. COPD, emphysema. Pulmonary nodules, right lower lobe adenocarcinoma 3. Hypertension 4. Dyslipidemia. LDL goal less than 70 mg/dL 5. Type II diabetes mellitus 6. Stage IV CKD 7. Anemia of chronic disease 8. GERD 9. Anthony's esophagus 10. Esophageal dysmotility 11. Gout 12. BPH 13. Cholelithiasis 14. Venous stasis 15. Osteoarthritis. 16. Right patella fracture 17. Status post right hip replacement x 2. 18. Dental extraction 19. Kidney stones, status post lithotripsy x 2. 20. [place] Syndrome, status post total abdominal colectomy with end ileostomy on December 21, 2019. Allergies Allergy/AdvReac Type Severity Reaction Status Date / Time No Known Allergies Allergy U Verified 08/05/22 16:20 Home Medications Medication Instructions Recorded Confirmed Type albuterol sulfate 2.5 mg/3 mL 2.5 mg inhalation Q4 PRN cough,SOB 03/08/18 08/16/22 History (0.083 %) solution for nebulization allopurinol 300 mg tablet 300 mg PO QAM 03/08/18 08/16/22 History aspirin 81 mg tablet,delayed 81 mg PO QAM 03/08/18 08/16/22 History release (Dane Low Dose Aspirin) atorvastatin 40 mg tablet 40 mg PO HS 03/08/18 08/16/22 History furosemide 80 mg tablet 80 mg PO BID 03/08/18 08/16/22 History insulin aspart U-100 100 unit/mL 1 dose subcut BID 03/08/18 08/16/22 History (3 mL) subcutaneous pen (Novolog FlexPen U-100 Insulin aspart) insulin glargine 100 unit/mL 40 unit subcut HS 03/08/18 08/16/22 History subcutaneous solution (Lantus U-100 Insulin) metoprolol succinate 50 mg 50 mg PO UD 03/08/18 08/16/22 History tablet,extended release 24 hr omeprazole 40 mg capsule,delayed 40 mg PO QAM 03/08/18 08/16/22 History release spironolactone 25 mg tablet 12.5 mg PO QAM #0 tabs 01/27/20 08/16/22 Rx cholecalciferol (vitamin D3) 50 50 mcg PO QAM 12/04/20 08/16/22 History mcg (2,000 unit) capsule famotidine 20 mg tablet 20 mg PO HS 12/04/20 08/16/22 History albuterol sulfate 90 mcg/actuation 2 puff inhalation QID PRN 02/12/21 08/16/22 History aerosol inhaler (ProAir HFA) Shortness Of Breath metolazone 5 mg tablet 5 mg PO WK 02/12/21 08/16/22 History promethazine 25 mg tablet 25 mg PO Q6H PRN NAUSEA/VOMITING 02/12/21 08/16/22 History finasteride 5 mg tablet 5 mg PO QAM #90 tabs 12/01/21 08/16/22 Rx Portable Oxygen #1 ea 01/29/22 08/16/22 Rx sertraline 50 mg tablet 50 mg PO QAM 02/03/22 08/16/22 History cholecalciferol (vitamin D3) 50 50 mcg PO DAILY 08/16/22 08/16/22 History mcg (2,000 unit) capsule (Vitamin D3) guaifenesin 600 mg tablet, 600 mg PO AMHS 08/16/22 08/16/22 History extended release 12 hr (Mucinex) hydroxyzine HCl 25 mg tablet 25 mg PO TID PRN Anxiety 08/16/22 08/16/22 History ipratropium 0.5 mg-albuterol 3 mg 3 ml inhalation Q4H PRN cough,SOB 08/16/22 08/16/22 History (2.5 mg base)/3 mL nebulization soln loperamide 2 mg tablet 2 mg PO QID PRN Diarrhea 08/16/22 08/16/22 History fluticasone fur. 100 mcg-umeclid 1 inh inhalation DAILY #3 Inhalers 08/18/22 Rx 62.5 mcg-vilant 25 mcg inhalat.powder (Trelegy Ellipta) Patient History Medical History (Updated 08/17/22 @ 13:26 by Kevan Denise MD, [facility]) Advanced COPD Anemia HX Anxiety Arthritis NECK Back problem HX INJECTIONS, POSSIBLE NEED FOR SX Anthony's esophagus BPH (benign prostatic hyperplasia) CAD (coronary artery disease) Last cardiac cath 08/09/2011 and demonstrated severe [place] vessel disease and an occluded SVG to the OM2. All other grafts noted to be patent at that time. 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 Smith Congestive heart failure chronic combined systolic and diastolic EF 45% 2011 Diabetes mellitus, type 2 IDDM Dyslipidemia GERD (gastroesophageal reflux disease) Gout HX History of colon polyps History of radiation therapy 5 TX A FEW YRS AGO FOR LUNG NODULES..."MADE IT GROW MORE" History of renal calculi HTN (hypertension) Ileostomy, has currently PER PT: SWELLED UP AROUND WHERE BAG HOOKS UP "RUPTURED" NO PROBLEMS WITH FUNCTIONING , DR AWARE...POSSIBLE NEED FOR UPCOMING SX Lung cancer (07/23/20) Right Lower Lobe - Adenocarcinoma Lung nodules ? DETAILS/REASON FOR UPCOMING PROCEDURE Metastatic primary lung cancer MRSA (methicillin resistant Staphylococcus aureus) Per infection control, 02/2018: "Patient has a history of MRSA in a wound and a nasal screen in 2015. Patient requires contact precautions." Myocardial Infarction 2005 - CABG X5 VESSELS. Subsequent caths with stenting 2005 and 2006. Obesity [place]'s syndrome On home oxygen therapy 2LPM VIA N/C AT HS PRN Physical debility Poor historian spoke with who is a good historian Secondary hyperparathyroidism Sleep apnea O2 AT NIGHT PRN Surgical History H/O lithotripsy x 2 History of bronchoscopy x3, last 02/10/22 @ [facility] Grade 1 view, MAC 3, ETT 9. History of cardiac cath 2006 PCI of LCx 2006 PCI of LAD 2011 severe [place] vessel dz and an occluded SVG to OM2 graft. All other grafts patent. History of colonoscopy History of coronary artery bypass graft X5 VESSELS AT [facility] 2004 History of esophagogastroduodenoscopy (EGD) History of surgery PROCEDURE LAST YR [place] - ? ENDOBRONCHIAL U/S - PT NOT SURE FINDINGS History of total colectomy for Jeffersonton's syndrome History of total hip arthroplasty RIGHT HIP -- WITH MULTIPLE REVISIONS Port-A-Cath in place (07/06/22) Access port placement with use of fluoroscopy. Status post coronary artery bypass grafting "x 5, 2005" Family History Father , Passed age 92 of metastatic prostate cancer No problems noted. Mother , Passed age 87 of chronic problems No problems noted. Brother , Passed age 54 of [place] Heart disease Sister Breast cancer Son No problems noted. Son No problems noted. Daughter No problems noted. Other No family history of adverse response to anesthesia Social History Smoking Status: Former smoker Tobacco Type: Cigarettes Age Started Using Tobacco: 13; Age Quit Using Tobacco: 59; packs per day: 3; Second Hand Exposure: Yes (parents smoked); Hx Alcohol Use: No Hx Substance Use: No Preferred Language: Somali Communication Ability: Effective Visual Impairment: No Limitations Hearing Ability: Normal Keg Inspector Required: No Beliefs That Will Affect Care: None marital status: Current Living Situation: Spouse Current Living Situation Comment: Lives with current occupational status: retired 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 No acute distress. HEENT: Normocephalic, atraumatic. Pupils equal, round and reactive to light and accommodation. Extraocular muscles are intact. Anicteric sclera. Moist mucous membranes. Neck: No JVD. No bruit. Cardiovascular: Regular. Positive S-4. Normal S-1 and S-2. No S-3. No murmurs or rubs. Pulmonary: Poor air movement diffusely with scattered rhonchi and dry crackles Abdomen: Bowel sounds x 4, soft. No rebound, guarding or tenderness. No organomegaly. Extremities: No clubbing, cyanosis or edema. +2 pedal pulses bilaterally. Skin: Warm and dry. Results & Data Vital Signs (Past 12 Hours) Vital Signs Pulse Pulse Resp BP BP Pulse Ox O2 Del Method 08/17/22 09:00 96 H 20 08/17/22 08:30 94 H 21 97 Nasal Cannula 08/17/22 08:30 124/66 08/17/22 08:00 20 98 Nasal Cannula 08/17/22 08:00 101/64 08/17/22 07:36 93 Nasal Cannula 08/17/22 07:00 93 H 22 99 Nasal Cannula 08/17/22 07:00 122/63 08/17/22 06:16 95 H 18 123/67 99 Nasal Cannula 08/17/22 02:48 Nasal Cannula 08/17/22 02:48 95 H 18 112/60 97 Room Air 08/16/22 23:10 90 08/16/22 23:30 87 20 92 Room Air 08/16/22 23:30 120/61 08/16/22 23:26 90 08/16/22 22:48 96 H 16 93 08/16/22 22:48 123/75 08/16/22 21:30 90 20 95 Room Air O2 Flow Rate 08/17/22 09:00 08/17/22 08:30 2 08/17/22 08:30 08/17/22 08:00 2 08/17/22 08:00 08/17/22 07:36 2 08/17/22 07:00 2 08/17/22 07:00 08/17/22 06:16 2 08/17/22 02:48 2.5 08/17/22 02:48 08/16/22 23:10 08/16/22 23:30 08/16/22 23:30 08/16/22 23:26 08/16/22 22:48 08/16/22 22:48 08/16/22 21:30 (2) Lung cancer Laterality: unspecified laterality Lung location: unspecified part of lung Qualified Code(s): C34.90 - Malignant neoplasm of unspecified part of unspecified bronchus or lung
[2022-08-17] MEDS: ALBUT/IPRATROP 3MG/0.5MG NEB 3 ML VIAL NEB SCH ×4 (09:28→19:09)
[2022-08-17] MEDS: allopurinoL 300 MG TAB PO SCH (09:29)
[2022-08-17] MEDS: ASPIRIN 81 MG ECTAB PO SCH (09:30)
--- NOTE | 2022-08-17 09:30 | Pulmonary Consultation ---
Date of Consultation August 17, 2022 Assessment & Plan (1) SOB (shortness of breath): (2) Pulmonary hypertension: (3) Lung cancer: Laterality: right Lung location: lower lobe of lung Qualified Code(s): C34.31 - Malignant neoplasm of lower lobe, right bronchus or lung (4) COPD with emphysema: Plan Chest x-ray 08/16/2022 personally reviewed: Portable film, blunting of bilateral costophrenic and cardiophrenic angles, increased right hilar marking. Port-A-Cath in place, no clear infiltrate appreciated Doppler 08/16/2022: Normal compressibility of the common femoral vein through the proximal calf veins 2D echo 08/17/2022: EF 65-70%, left atrium severely dilated, trace MR, mild TR, RVSP 40-50 mmHg --Shortness of breath Multifactorial I think it is a combination of new onset A-fib RVR on top of diastolic CHF Patient also has severe COPD There is no active wheezing, I doubt patient is in COPD exacerbation Given negative DVT, VQ scan which only did perfusion showed defect in the right lower lobe superior segment with the masses. The possibility of patient having PE is low -- Pulmonary hypertension Likely combination of type II and type III Continue with diuretics and inhalers --Stage IV adenocarcinoma of the lung Originating in the right lower lobe Patient finished 1 round of chemotherapy but did not tolerate it well He is not planning to have any more chemotherapies in future --Chronic left-sided pleural effusion With pleural plaques No need for any intervention -- COPD with emphysema Severe Continue with bronchodilators On Trelegy inhaler at home Not a good candidate for azithromycin given the QTc of 426 PFT 12/23/2021: Severe airflow obstruction with an FEV1 of 37%. Air-trapping noted with an RV of 195%. DLCO unremarkable 88%. Plan: Doppler bilateral lower extremities negative, perfusion scan shows lack of perfusion in the superior segment of the right lower lobe which is most likely from the patient's mass CTA cannot be done as patient has CKD Given the new onset A-fib, continue with anticoagulation Patient will benefit from rehab placement Overall prognosis of the is poor, palliative care should be considered Case was discussed with Dr. Khan Please note the above document was generated using voice recognition software. It may contain grammatical, syntax or spelling errors.Any formal questions or concerns about the content, text or information contained within the body of this dictation should be directly addressed to the provider for clarification. History of Present Illness Attending Physician: Jae Khan MD History of Present Illness 76-year-old male was sent to the hospital for worsening shortness of breath Past medical history: Stage IV adenocarcinoma of the lung, advanced COPD, BPH, anxiety/depression Pulmonary consulted for the same Patient follows up with Dr. Shaffer as an outpatient, he saw the patient last on 08/16/2022 and sent the patient to the ER At the time of examination patient's was in the room. Patient was not in any respiratory distress He was saturating 97% on 1 L nasal cannula. I went down to half liters and at the end of interrogation he was still 96-97% Patient says that his main issue with breathing is when he is exerting himself. It is mostly huffing and puffing. Denies any chest pain, no dizziness, no palpitation, no diaphoresis at that time. No headache. Patient says that he is compliant with his inhalers Does complain of cough with clear phlegm. No fever or chills No hemoptysis. Social history: Greater than [id number] smoking history, quit a while ago Allergies Allergy/AdvReac Type Severity Reaction Status Date / Time No Known Allergies Allergy U Verified 08/05/22 16:20 Home Medications Medication Instructions Recorded Confirmed Type albuterol sulfate 2.5 mg/3 mL 2.5 mg inhalation Q4 PRN cough,SOB 03/08/18 08/16/22 History (0.083 %) solution for nebulization allopurinol 300 mg tablet 300 mg PO QAM 03/08/18 08/16/22 History aspirin 81 mg tablet,delayed 81 mg PO QAM 03/08/18 08/16/22 History release (Dane Low Dose Aspirin) atorvastatin 40 mg tablet 40 mg PO HS 03/08/18 08/16/22 History furosemide 80 mg tablet 80 mg PO BID 03/08/18 08/16/22 History insulin aspart U-100 100 unit/mL 1 dose subcut BID 03/08/18 08/16/22 History (3 mL) subcutaneous pen (Novolog FlexPen U-100 Insulin aspart) insulin glargine 100 unit/mL 40 unit subcut HS 03/08/18 08/16/22 History subcutaneous solution (Lantus U-100 Insulin) metoprolol succinate 50 mg 50 mg PO UD 03/08/18 08/16/22 History tablet,extended release 24 hr omeprazole 40 mg capsule,delayed 40 mg PO QAM 03/08/18 08/16/22 History release spironolactone 25 mg tablet 12.5 mg PO QAM #0 tabs 01/27/20 08/16/22 Rx cholecalciferol (vitamin D3) 50 50 mcg PO QAM 12/04/20 08/16/22 History mcg (2,000 unit) capsule famotidine 20 mg tablet 20 mg PO HS 12/04/20 08/16/22 History albuterol sulfate 90 mcg/actuation 2 puff inhalation QID PRN 02/12/21 08/16/22 History aerosol inhaler (ProAir HFA) Shortness Of Breath metolazone 5 mg tablet 5 mg PO WK 02/12/21 08/16/22 History promethazine 25 mg tablet 25 mg PO Q6H PRN NAUSEA/VOMITING 02/12/21 08/16/22 History finasteride 5 mg tablet 5 mg PO QAM #90 tabs 12/01/21 08/16/22 Rx Portable Oxygen #1 ea 01/29/22 08/16/22 Rx sertraline 50 mg tablet 50 mg PO QAM 02/03/22 08/16/22 History cholecalciferol (vitamin D3) 50 50 mcg PO DAILY 08/16/22 08/16/22 History mcg (2,000 unit) capsule (Vitamin D3) fluticasone fur. 100 mcg-umeclid 1 inh inhalation DAILY #60 ea 08/16/22 08/16/22 Rx 62.5 mcg-vilant 25 mcg inhalat.powder (Trelegy Ellipta) guaifenesin 600 mg tablet, 600 mg PO AMHS 08/16/22 08/16/22 History extended release 12 hr (Mucinex) hydroxyzine HCl 25 mg tablet 25 mg PO TID PRN Anxiety 08/16/22 08/16/22 History ipratropium 0.5 mg-albuterol 3 mg 3 ml inhalation Q4H PRN cough,SOB 08/16/22 08/16/22 History (2.5 mg base)/3 mL nebulization soln loperamide 2 mg tablet 2 mg PO QID PRN Diarrhea 08/16/22 08/16/22 History Patient History Medical History (Updated 08/17/22 @ 13:26 by Kevan Denise MD, [facility]) Advanced COPD Anemia HX Anxiety Arthritis NECK Back problem HX INJECTIONS, POSSIBLE NEED FOR SX Anthony's esophagus BPH (benign prostatic hyperplasia) CAD (coronary artery disease) Last cardiac cath 08/09/2011 and demonstrated severe yocha dehe vessel disease and an occluded SVG to the OM2. All other grafts noted to be patent at that time. 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 Smith Congestive heart failure chronic combined systolic and diastolic EF 45% 2011 Diabetes mellitus, type 2 IDDM Dyslipidemia GERD (gastroesophageal reflux disease) Gout HX History of colon polyps History of radiation therapy 5 TX A FEW YRS AGO FOR LUNG NODULES..."MADE IT GROW MORE" History of renal calculi HTN (hypertension) Ileostomy, has currently PER PT: SWELLED UP AROUND WHERE BAG HOOKS UP "RUPTURED" NO PROBLEMS WITH FUNCTIONING , DR AWARE...POSSIBLE NEED FOR UPCOMING SX Lung cancer (07/23/20) Right Lower Lobe - Adenocarcinoma Lung nodules ? DETAILS/REASON FOR UPCOMING PROCEDURE Metastatic primary lung cancer MRSA (methicillin resistant Staphylococcus aureus) Per infection control, 02/2018: "Patient has a history of MRSA in a wound and a nasal screen in 2014. Patient requires contact precautions." Myocardial Infarction 2005 - CABG X5 VESSELS. Subsequent caths with stenting 2005 and 2006. Obesity Huma's syndrome On home oxygen therapy 2LPM VIA N/C AT HS PRN Physical debility Poor historian spoke with who is a good historian Secondary hyperparathyroidism Sleep apnea O2 AT NIGHT PRN Surgical History H/O lithotripsy x 2 History of bronchoscopy x3, last 02/10/22 @ [facility] Grade 1 view, MAC 3, ETT 9. History of cardiac cath 2006 PCI of LCx 2006 PCI of LAD 2011 severe yocha dehe vessel dz and an occluded SVG to OM2 graft. All other grafts patent. History of colonoscopy History of coronary artery bypass graft X5 VESSELS AT [facility] 2004 History of esophagogastroduodenoscopy (EGD) History of surgery PROCEDURE LAST YR [facility] - ? ENDOBRONCHIAL U/S - PT NOT SURE FINDINGS History of total colectomy for [place]'s syndrome History of total hip arthroplasty RIGHT HIP -- WITH MULTIPLE REVISIONS Port-A-Cath in place (07/06/22) Access port placement with use of fluoroscopy. Status post coronary artery bypass grafting "x 5, 2004" Family History Father , Passed age 92 of metastatic prostate cancer No problems noted. Mother , Passed age 87 of chronic problems No problems noted. Brother , Passed age 54 of [place] Heart disease Sister Breast cancer Son No problems noted. Son No problems noted. Daughter No problems noted. Other No family history of adverse response to anesthesia Social History Smoking Status: Former smoker Tobacco Type: Cigarettes Age Started Using Tobacco: 13; Age Quit Using Tobacco: 59; packs per day: 3; Second Hand Exposure: Yes (parents smoked); Hx Alcohol Use: No Hx Substance Use: No Preferred Language: [place] Communication Ability: Effective Visual Impairment: No Limitations Hearing Ability: Normal Hospital Security Officer Required: No Beliefs That Will Affect Care: None marital status: Current Living Situation: Spouse Current Living Situation Comment: Lives with current occupational status: retired 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 How many Children do You have: 3 Other Information That Helps Us Care for You: No Feels Safe at Home: Yes Safety Concerns: Feels Safe At This Time Childhood Exposure to Second-Hand Smoke: Yes caffeine: Yes (2-3 cups of coffee/day ) during the past year weight has: remained stable Assistive Devices: Cane, Oxygen - at Night and Walker Review of Systems Review of Systems: All systems reviewed & are unremarkable except as noted in HPI & below Physical Exam Physical Exam: Constitutional: No acute distress HEENT: EOMI, PERRLA Respiratory system: Decreased air entry bilaterally, no wheeze, no rhonchi, mild crackles bilateral lower lobes CVS: S1-S2 positive, no murmurs or gallops, accentuated P2 Abdomen: Soft, nontender, nondistended, positive bowel sounds x4, obese Extremities: +2 pulses bilaterally radialis/ dorsalis pedis, no cyanosis, +1 pitting edema bilateral lower extremity Neuro: Awake alert oriented x3 Psych: Normal mood and affect G/U: No Farmer Skin: no rashes, warm and dry Lymphatic: no cervical or axillary lymphadenopathy Results & Data Results & Data Vital Signs (Past 12 Hours) Vital Signs Pulse Pulse Resp BP BP Pulse Ox O2 Del Method 08/17/22 09:00 96 H 20 08/17/22 08:30 94 H 21 97 Nasal Cannula 08/17/22 08:30 124/66 08/17/22 08:00 20 98 Nasal Cannula 08/17/22 08:00 101/64 08/17/22 07:36 93 Nasal Cannula 08/17/22 07:00 93 H 22 99 Nasal Cannula 08/17/22 07:00 122/63 08/17/22 06:16 95 H 18 123/67 99 Nasal Cannula 08/17/22 02:48 Nasal Cannula 08/17/22 02:48 95 H 18 112/60 97 Room Air 08/16/22 23:10 90 08/16/22 23:30 87 20 92 Room Air 08/16/22 23:30 120/61 08/16/22 23:26 90 08/16/22 22:48 96 H 16 93 08/16/22 22:48 123/75 O2 Flow Rate 08/17/22 09:00 08/17/22 08:30 2 08/17/22 08:30 08/17/22 08:00 2 08/17/22 08:00 08/17/22 07:36 2 08/17/22 07:00 2 08/17/22 07:00 08/17/22 06:16 2 08/17/22 02:48 2.5 08/17/22 02:48 08/16/22 23:10 08/16/22 23:30 08/16/22 23:30 08/16/22 23:26 08/16/22 22:48 08/16/22 22:48 Laboratory Results 08/17/22 06:18 08/17/22 06:18 PG Care Time/CCT Total # of Minutes Spent Total Time Spent with Patient: Total time spent is greater than 50% in coordination of care (as documented) at patient's floor/unit and/or counseling patient: Coding Level of Care Code 47796 INT INP/OBS CARE MIN Diagnoses SOB (shortness of breath) R06.02 Pulmonary hypertension I27.20 Lung cancer C34.31 Laterality: right Lung location: lower lobe of lung COPD with emphysema J43.9
[2022-08-17] MEDS: FINASTERIDE 5 MG TAB PO SCH (09:31)
[2022-08-17] MEDS: FAMOTIDINE 20 MG TAB PO SCH (09:31)
[2022-08-17] MEDS: CHOLECALCIFEROL 1,000 UNITS 25 MCG TAB PO SCH (09:31)
[2022-08-17] MEDS: PANTOprazole 40 MG TAB PO SCH (09:32)
[2022-08-17] MEDS: SERTRALINE HCL 50 MG TABLET PO SCH (09:32)
[2022-08-17] MEDS: FLUTICASONE FUROATE 100MCG 14 PUFFS/INHALER INH SCH (09:32)
[2022-08-17] MEDS: METOPROLOL SUCC 50MG EXT REL TAB PO SCH (09:33)
[2022-08-17] MEDS: UMECLIDINIUM/VILANTEROL 62.5/25MCG 7 PUFFS/INHALER INH SCH (09:33)
[2022-08-17] MEDS: SPIRONOLACTONE 12.5 MG TAB PO SCH (09:33)
[2022-08-17] MEDS: Heparin IV Adult Wt-Based Low-Dose *NO* Bolus Protocol IV SCH (10:14)
--- NOTE | 2022-08-17 10:51 | Electrocardiogram Report ---
Test Reason : Blood Pressure : / mmHG Vent. Rate : 091 BPM Atrial Rate : 091 BPM P-R Int : 214 ms QRS Dur : 118 ms QT Int : 428 ms P-R-T Axes : 079 -26 073 degrees QTc Int : 526 ms Poor data quality, interpretation may be adversely affected Sinus rhythm with 1st degree A-V block with occasional Premature ventricular complexes Non-specific intra-ventricular conduction delay Nonspecific ST and T wave abnormality Prolonged QT Abnormal ECG When compared with ECG of 16-AUG-2022 14:37, Sinus rhythm has replaced Atrial fibrillation Confirmed by Gadiel Burns ([id number]) on 08/17/2022 10:50:55 AM Referred By: REFERRED SELF Confirmed By:Jase Burns
--- NOTE | 2022-08-17 11:11 | Nuclear Medicine Report ---
NM pul perfusion HISTORY: 76 years-old Male PE acute shortness of breath COMPARISON: Duplex venous Doppler study 08/16/2022, PET CT 05/26/2022, perfusion scan 01/26/2020 TECHNIQUE: Perfusion scan was obtained following the intravenous administration of 5.4 mCi technetium 99 MAA administered via the patient's Mediport catheter. FINDINGS: Patient reportedly has history of emphysema and lung cancer. Chest radiograph obtained on 08/16/2022 d emonstrates a right hilar/superior segment right lower lobe mass along with cardiomegaly, prior media n sternotomy and CABG with chronic left basilar consolidation, emphysema with left-sided pleural calc ifications. Large segmental perfusion defect within the superior segment right lower lobe. No additional large se gmental perfusion defects are identified. IMPRESSION: Large segmental perfusion defect within the superior segment right lower lobe is likely a ssociated with the patient's known primary bronchogenic malignancy. Without a corresponding ventilati on scan, this is technically indeterminate and would be categorized as intermediate probability for p ulmonary embolus ACT 112: Negative or not required by law. The above report was generated using voice recognition software. It may contain grammatical, syntax o r spelling errors. Electronically signed by: Giovanni Montoya M.D. 08/17/2022 11:10 AM
--- NOTE | 2022-08-17 15:03 | Pharmacy Report ---
Pharmacy Glycemic Short Note 2 - Date of Service August 17, 2022 - Glycemic Short BSG Results (Last 24 hours): 08/16/22 08/17/22 08/17/22 14:55 00:24 06:07 Glucose 117 H POC Glucose 212 H 175 H 08/17/22 08/17/22 08/17/22 06:18 08:51 12:17 Glucose 189 H POC Glucose 183 H 237 H OUTPATIENT ANTIDIABETIC REGIMEN: * Lantus 40 units SQ HS * NovoLog Scale sliding scale, 20-30 units twice a day based on BSG (unspecified on med rec). ASSESSMENT: * 76 year old male admitted for shortness of breath; PMH significant for lung cancer, CHF, and COPD. * HbA1c 7.5% today. * Patient was started on 40 units of Lantus at bedtime, fasting BSG 183 mg/dL today. * NovoLog was tightened from initial 30-10 parameters to 20-7 this morning. Carb ratio further tightened to 1 unit per 6 grams of carbohydrate consumed in response to elevated lunch BSG of 237 mg/dL. PLAN FOR INPATIENT GLYCEMIC CONTROL: * Hold outpatient oral diabetes medications * Basal insulin * Lantus 40 units SQ HS * Bolus insulin * NovoLog per scale ACHS or Q6hrs while NPO * Goal Range: Low 110 mg/dL - High 140 mg/dL * Correction Factor: 20 mg/dL/unit * Nutritional / Prandial insulin per carb ratio of 1 unit per 6 grams CHO consumed
--- NOTE | 2022-08-17 15:23 | Hospitalist Progress Note ---
Date of Service August 17, 2022 Assessment & Plan (1) COPD with emphysema: (2) CHF (congestive heart failure): (3) Advanced COPD: Plan: 76-year-old male with multiple comorbid condition including lung cancer, COPD, CHF, CKD, CAD status post CABG who was sent from pulmonology clinic to rule out PE. Patient reports increasing shortness of breath for several month on exertion. Shortness of breath multifactorial; possible acute on chronic systolic and diastolic heart failure Afebrile, normotensive and saturating well on room air since admission. Chest x-ray shows cardiomegaly emphysema; RIGHT perihilar mass lesion remained unchanged Venous duplex did not show DVT Pulmonary perfusion imaging shows large segmental perfusion defect likely associated with patient's known bronchogenic malignancy Echocardiogram shows EF of 65 to 70%; left atrial severely dilated. Pulmonology on board; Cardiology on board; recommend no further cardiac work-up. His EKG on admission shows questionable A-fib; will ask cardiology to reevaluate the EKG. He is currently on heparin drip. Decision regarding anticoagulation to be made after ruling out A-fib and after discussion with pulmonology. Resume home diuretics Continue on home inhaler and nebulization for COPD. (4) Lung cancer: Plan: Received one chemotherapy last month, could not tolerate it Patient to follow-up with oncology as outpatient next week Plan Other conditions; Chronic kidney disease stage IV, presents with creatinine of 2.5, seems to be at baseline. Anemia of chronic kidney disease. Hemoglobin 10., seems to be stable. We will follow the laboratories. Chronic gout, on allopurinol. History of coronary artery disease, status post coronary artery bypass grafting. On aspirin, statin, and beta chau. Benign prostatic hypertrophy, on finasteride. We will monitor for any urinary retention. Gastroesophageal reflux disease, on omeprazole. Depression, on sertraline. Hyperlipidemia, on statin. Anthony's esophagus, on proton pump inhibitor. Status post ileostomy status. Deep venous thrombosis prophylaxis, On IV heparin Full code Lives with family; Admission and Anticipated Discharge Date Admission Date: August 16, 2022 Subjective Patient seen and examined in the bed. He is sitting up on the chair; comfortable. He denies any chest pain or palpitations. Review of Systems Review of Systems: All systems reviewed & are unremarkable except as noted in Subjective Physical Exam Physical Exam: Constitutional: Alert, oriented x3; not in any distress. Respiratory: Bilateral basal breath sound; no added sound. Cardiovascular: RRR, no murmur, no edema Vessels: no JVD or carotid bruit Chest: normal inspection of chest Abdomen: Ileostomy bag present; soft. Musculoskeletal: Bilateral lower extremity shows chronic venous changes. Skin: Bilateral lower extremity discoloration. Neurologic: PERRL, EOMI, accommodation nl, no face palsy, no dysarthria CN's II- XI intact bilaterally and moves all extremities Psychiatric: A+Ox3, euthymic affect Lymphatic: no cervical or axillary lymphadenopathy : deferred Results & Data Results & Data Vital Signs (Past 12 Hours) Vital Signs Temp Pulse Pulse Resp BP BP Pulse Ox 08/17/22 12:31 08/17/22 12:02 36.5 C 88 20 132/70 98 08/17/22 11:30 95 H 22 98 08/17/22 11:00 94 H 18 99 08/17/22 10:42 101 H 17 08/17/22 10:00 95 H 18 08/17/22 10:00 117/60 08/17/22 09:33 94 H 25 H 98 08/17/22 09:33 119/64 08/17/22 09:30 94 H 24 08/17/22 09:27 105/65 97 08/17/22 09:27 93 H 18 08/17/22 11:03 08/17/22 09:00 96 H 20 08/17/22 08:30 94 H 21 97 08/17/22 08:30 124/66 08/17/22 08:00 20 98 08/17/22 08:00 101/64 08/17/22 07:36 93 08/17/22 07:00 93 H 22 99 08/17/22 07:00 122/63 08/17/22 06:16 95 H 18 123/67 99 Pulse Ox O2 Del Method O2 Del Method O2 Flow Rate O2 Flow Rate 08/17/22 12:31 Nasal Cannula 2 08/17/22 12:02 Nasal Cannula 2 08/17/22 11:30 Nasal Cannula 3 08/17/22 11:00 Nasal Cannula 2 08/17/22 10:42 08/17/22 10:00 08/17/22 10:00 08/17/22 09:33 Nasal Cannula 2 08/17/22 09:33 08/17/22 09:30 08/17/22 09:27 Nasal Cannula 2 08/17/22 09:27 08/17/22 11:03 95 Nasal Cannula 2 08/17/22 09:00 08/17/22 08:30 Nasal Cannula 2 08/17/22 08:30 08/17/22 08:00 Nasal Cannula 2 08/17/22 08:00 08/17/22 07:36 Nasal Cannula 2 08/17/22 07:00 Nasal Cannula 2 08/17/22 07:00 08/17/22 06:16 Nasal Cannula 2 Laboratory Results Laboratory Results WBC 10.69 K/ul (4.8-10.8) 08/17/22 06:18 RBC 3.61 M/uL (4.70-6.10) L 08/17/22 06:18 Hgb 11.2 g/dl (14.0-18.0) L 08/17/22 06:18 Hct 35.2 % (42.0-52.0) L 08/17/22 06:18 MCV 97.5 fL (80.0-100.0) 08/17/22 06:18 MCH 31.0 pg (25.0-34.0) 08/17/22 06:18 MCHC 31.8 g/dL (32.0-36.0) L 08/17/22 06:18 RDW Std Deviation 60.0 fL (36.4-46.3) H 08/17/22 06:18 RDW Coeff of Josiah 16.7 % (11.5-14.5) H 08/17/22 06:18 Plt Count 193 K/uL (130-400) 08/17/22 06:18 MPV 11.6 fL (9.4-12.4) 08/17/22 06:18 Immature Gran % (Auto) 0.4 % 08/17/22 06:18 Neut % (Auto) 79.5 % 08/17/22 06:18 Lymph % (Auto) 11.9 % 08/17/22 06:18 Dent % (Auto) 6.0 % 08/17/22 06:18 Eos % (Auto) 1.8 % 08/17/22 06:18 Baso % (Auto) 0.4 % 08/17/22 06:18 Neut # (Auto) 8.51 K/uL (1.40-6.50) H 08/17/22 06:18 Lymph # (Auto) 1.27 K/uL (1.2-3.4) 08/17/22 06:18 Dent # (Auto) 0.64 K/uL (0.11-0.59) H 08/17/22 06:18 Eos # (Auto) 0.19 K/uL (0-0.50) 08/17/22 06:18 Baso # (Auto) 0.04 K/uL (0-0.2) 08/17/22 06:18 Immature Gran # (Auto) 0.04 K/uL (0.01-0.20) 08/17/22 06:18 PT 11.3 Seconds (9.0-12.0) 08/16/22 14:55 INR 1.1 (0.9-1.1) 08/16/22 14:55 APTT 32.9 Seconds (21.0-31.0) H 08/17/22 06:18 PTT Ratio 1.2 08/17/22 06:18 Sodium 138 mmol/L (136-145) 08/17/22 06:18 Potassium 3.4 mmol/L (3.5-5.1) L 08/17/22 06:18 Chloride 98 mmol/L (98-107) 08/17/22 06:18 Carbon Dioxide 30 mmol/L (21-32) 08/17/22 06:18 Anion Gap 10 (3-11) 08/17/22 06:18 BUN 81 mg/dl (6-23) H 08/17/22 06:18 Creatinine 2.43 mg/dl (0.6-1.4) H 08/17/22 06:18 Est Cr Clr Drug Dosing 30.2 ml/min 08/17/22 06:18 Est GFR ( Amer) 28.6 ml/min 08/17/22 06:18 Est GFR (Non-Af Amer) 24.7 ml/min 08/17/22 06:18 BUN/Creatinine Ratio 33.3 (10-20) H 08/17/22 06:18 Glucose 189 mg/dl (70-99(Fasting)) H 08/17/22 06:18 POC Glucose 237 mg/dl (70-99) H 08/17/22 12:17 Estimat Average Glucose 169 mg/dl 08/17/22 06:18 Hemoglobin A1c 7.5 % (4.5-5.6) H 08/17/22 06:18 Calcium 9.8 mg/dl (8.5-10.1) 08/17/22 06:18 Magnesium 1.9 mg/dl (1.7-2.4) 08/17/22 06:18 Total Bilirubin 0.4 mg/dl (0.2-1.0) 08/16/22 14:55 AST 12 U/L (13-39) L 08/16/22 14:55 ALT 11 U/L (7-52) 08/16/22 14:55 Alkaline Phosphatase 157 U/L (34-104) H 08/16/22 14:55 Troponin I High Sens 19.2 pg/ml (0-20) 08/16/22 14:55 B-Natriuretic Peptide 216 pg/ml (0-100) H 08/16/22 19:27 Total Protein 7.2 gm/dl (6.0-8.3) 08/16/22 14:55 Albumin 3.7 gm/dl (3.4-5.0) 08/16/22 14:55 Globulin 3.5 gm/dl (2.5-4.0) 08/16/22 14:55 Albumin/Globulin Ratio 1.1 (0.9-2) 08/16/22 14:55 Adenovirus (PCR) Not Detected (NotDetected) 08/16/22 14:57 B. pertussis DNA (PCR) Not Detected (NotDetected) 08/16/22 14:57 B.parapertussis DNA PCR Not Detected (NotDetected) 08/16/22 14:57 C. pneumoniae DNA (PCR) Not Detected (NotDetected) 08/16/22 14:57 Coronavirus OC43 (PCR) Not Detected (NotDetected) 08/16/22 14:57 Coronavirus HKU1 (PCR) Not Detected (NotDetected) 08/16/22 14:57 Coronavirus 229E (PCR) Not Detected (NotDetected) 08/16/22 14:57 SARS-CoV-2 (PCR) Not Detected (NotDetected) 08/16/22 14:57 Coronavirus NL63 (PCR) Not Detected (NotDetected) 08/16/22 14:57 Human Metapneumovir PCR Not Detected (NotDetected) 08/16/22 14:57 Influenza Type A (PCR) Not Detected (NotDetected) 08/16/22 14:57 Influenza Type B (PCR) Not Detected (NotDetected) 08/16/22 14:57 M. pneumoniae (PCR) Not Detected (NotDetected) 08/16/22 14:57 Parainfluenza 1 (PCR) Not Detected (NotDetected) 08/16/22 14:57 Parainfluenza 2 (PCR) Not Detected (NotDetected) 08/16/22 14:57 Parainfluenza 3 (PCR) Not Detected (NotDetected) 08/16/22 14:57 Parainfluenza 4 (PCR) Not Detected (NotDetected) 08/16/22 14:57 RSV (PCR) Not Detected (NotDetected) 08/16/22 14:57 Entero/Rhino (PCR) Not Detected (NotDetected) 08/16/22 14:57 Impressions Chest X-Ray 08/16/22 14:16 SINGLE VIEW CHEST CLINICAL HISTORY: Dyspnea FINDINGS: An AP, portable, upright chest radiograph is compared to study dated 07/06/2022 and correlated with chest CT dated 02/10/2022. The patient is status post midline sternotomy. A left subclavian central venous infusion port is unchanged in position. The heart is enlarged noting atherosclerotic calcification of the thoracic aorta. The pulmonary vasculature is noncongested. Emphysema and chronic interstitial thickening is similar to previous. A right perihilar mass lesion is unchanged. There are small pleural effusions with bibasilar scarring/atelectasis. Pleural calcification is again seen at the left lung base. No pneumothorax is identified. The skeletal structures are osteopenic. The bony thorax is grossly intact. IMPRESSION: 1. Cardiomegaly and emphysema. 2. A right perihilar mass lesion is unchanged. 3. Small pleural effusions are similar to previous ACT 112: Negative or not required by law. Electronically signed by: Reggie Stone M.D. 08/16/2022 3:48 PM Venous Doppler Study 08/16/22 16:55 US venous doppler LE BI CLINICAL HISTORY: poss clots TECHNIQUE: Right lower extremity real-time compression venous ultrasound with Color Doppler imaging. Utilizing real-time ultrasonic imaging multiple real time high-resolution ultrasonic images with compression and noncompression maneuvers of the deep venous system in addition to color doppler imaging were performed from the common femoral vein through the proximal calf veins. COMPARISON: Comparison is made to bilateral lower extremity Doppler ultrasound 01/25/2020 FINDINGS/IMPRESSION: Currently there is normal compressibility of the deep venous system from the common femoral vein through the proximal calf veins. Limited visualization of the calf veins due to patient body habitus. ACT 112: Negative or not required by law. Electronically signed by: Isaac Martino M.D. 08/16/2022 6:28 PM Pulmonary Perfusion Imaging 08/17/22 08:00 NM pul perfusion HISTORY: 76 years-old Male PE acute shortness of breath COMPARISON: Duplex venous Doppler study 08/16/2022, PET CT 05/26/2022, perfusion scan 01/26/2020 TECHNIQUE: Perfusion scan was obtained following the intravenous administration of 5.4 mCi technetium 99 MAA administered via the patient's Mediport catheter. FINDINGS: Patient reportedly has history of emphysema and lung cancer. Chest radiograph obtained on 08/16/2022 demonstrates a right hilar/superior segment right lower lobe mass along with cardiomegaly, prior median sternotomy and CABG with chronic left basilar consolidation, emphysema with left-sided pleural calcifications. Large segmental perfusion defect within the superior segment right lower lobe. No additional large segmental perfusion defects are identified. IMPRESSION: Large segmental perfusion defect within the superior segment right lower lobe is likely associated with the patient's known primary bronchogenic malignancy. Without a corresponding ventilation scan, this is technically indeterminate and would be categorized as intermediate probability for pulmonary embolus ACT 112: Negative or not required by law. The above report was generated using voice recognition software. It may contain grammatical, syntax or spelling errors. Electronically signed by: Giovanni Montoya M.D. 08/17/2022 11:10 AM (2) CHF (congestive heart failure) Heart failure chronicity: acute Heart failure type: unspecified Qualified Code(s): I50.9 - Heart failure, unspecified (4) Lung cancer Laterality: unspecified laterality Lung location: unspecified part of lung Qualified Code(s): C34.90 - Malignant neoplasm of unspecified part of unspecifie d bronchus or lung
[2022-08-17 15:29] LABS: Partial Thromboplastin Ratio 1.3; Partial Thromboplastin Time 36.3 Seconds (21.0-31.0)
[2022-08-17] MEDS ORDERED: FUROSEMIDE 80 MG TAB PO SCH (17:00)
[2022-08-17] MEDS: METOPROLOL SUCC 25MG EXT REL TAB PO SCH (20:33)
[2022-08-17] MEDS ORDERED: METOPROLOL SUCC 25MG EXT REL TAB PO SCH (21:00)
[2022-08-17 22:20] LABS: Partial Thromboplastin Ratio 1.5; Partial Thromboplastin Time 39.9 Seconds (21.0-31.0)
[2022-08-18] MEDS ORDERED: HEPARIN 100 UNIT/ML 5ML FLUSH FLUSH PRN (00:19)
[2022-08-18] MEDS: ALBUT/IPRATROP 3MG/0.5MG NEB 3 ML VIAL NEB PRN (02:19)
[2022-08-18 06:07] LABS: Basophils # (auto) 0.06 K/uL (0-0.2); Basophils % (auto) 0.5 %; Eosinophils # (auto) 0.33 K/uL (0-0.50); Eosinophils % (auto) 2.7 %; Hematocrit (blood only) 34.5 % (42.0-52.0); Hemoglobin 11.1 g/dl (14.0-18.0); Immature Granulocytes # (auto) 0.05 K/uL (0.01-0.20); Immature Granulocytes % (auto) 0.4 %; Lymphocytes # (auto) 1.65 K/uL (1.2-3.4); Lymphocytes % (auto) 13.5 %; Mean Corpuscular Hemoglobin 31.2 pg (25.0-34.0); Mean Corpuscular Hgb Conc 32.2 g/dL (32.0-36.0); Mean Corpuscular Volume 96.9 fL (80.0-100.0); Mean Platelet Volume 11.3 fL (9.4-12.4); Monocytes # (auto) 0.85 K/uL (0.11-0.59); Neutrophils # (auto) 9.27 K/uL (1.40-6.50); Neutrophils % (auto) 75.9 %; Platelet Count 191 K/uL (130-400); RDW Coefficient of Variation 16.6 % (11.5-14.5); RDW Standard Deviation 59.9 fL (36.4-46.3); Red Blood Count 3.56 M/uL (4.70-6.10); White Blood Count 12.21 K/ul (4.8-10.8)
[2022-08-18 06:15] LABS: Albumin Globulin Ratio 1.1 (0.9-2); Albumin Level 3.7 gm/dl (3.4-5.0); BUN Creatinine Ratio 28.7 (10-20); Bilirubin,Total 0.7 mg/dl (0.2-1.0); Calcium 9.8 mg/dl (8.5-10.1); Est GFR (African American) 23.9 ml/min; Est GFR (Non-African American) 20.6 ml/min; Globulin 3.4 gm/dl (2.5-4.0); Potassium 3.6 mmol/L (3.5-5.1); Total Protein 7.1 gm/dl (6.0-8.3)
[2022-08-18 06:29] LABS: Partial Thromboplastin Ratio 1.3; Partial Thromboplastin Time 36.5 Seconds (21.0-31.0)
[2022-08-18] MEDS: HEPARIN SODIUM/DEXTROSE 25,000 UNITS/500 ML BAG IV SCH (06:48)
[2022-08-18] MEDS: ALBUT/IPRATROP 3MG/0.5MG NEB 3 ML VIAL NEB SCH ×4 (07:10→19:37)
[2022-08-18] MEDS: HEPARIN SOD (PORCINE) 1000 UNIT/ML IV ONE ×2 (07:21→07:22)
[2022-08-18] MEDS: FINASTERIDE 5 MG TAB PO SCH (08:08)
[2022-08-18] MEDS: SPIRONOLACTONE 12.5 MG TAB PO SCH (08:08)
[2022-08-18] MEDS: CHOLECALCIFEROL 1,000 UNITS 25 MCG TAB PO SCH (08:08)
[2022-08-18] MEDS: FAMOTIDINE 20 MG TAB PO SCH (08:08)
[2022-08-18] MEDS: METOPROLOL SUCC 50MG EXT REL TAB PO SCH (08:08)
[2022-08-18] MEDS: allopurinoL 300 MG TAB PO SCH (08:08)
[2022-08-18] MEDS: ASPIRIN 81 MG ECTAB PO SCH (08:08)
[2022-08-18] MEDS: PANTOprazole 40 MG TAB PO SCH (08:09)
[2022-08-18] MEDS: SERTRALINE HCL 50 MG TABLET PO SCH (08:09)
[2022-08-18] MEDS: INSULIN ASPART PER UNIT CHARGE SC SCH ×4 (08:22→21:01)
[2022-08-18] MEDS ORDERED: LANTUS PER UNIT CHARGE SQ SCH ×3 (09:00→21:00)
[2022-08-18] MEDS: FLUTICASONE FUROATE 100MCG 14 PUFFS/INHALER INH SCH (09:35)
[2022-08-18] MEDS: UMECLIDINIUM/VILANTEROL 62.5/25MCG 7 PUFFS/INHALER INH SCH (09:35)
--- NOTE | 2022-08-18 12:46 | Pharmacy Report ---
Pharmacy Glycemic Short Note 2 - Date of Service August 18, 2022 - Glycemic Short BSG Results (Last 24 hours): 08/17/22 08/17/22 08/18/22 16:10 20:05 05:24 Glucose 176 H POC Glucose 133 H 154 H 08/18/22 08/18/22 07:05 11:16 Glucose POC Glucose 177 H 172 H OUTPATIENT ANTIDIABETIC REGIMEN: * Lantus 40 units SQ HS * NovoLog Scale sliding scale, 20-30 units twice a day based on BSG (unspecified on med rec). HbA1c: 7.5% (08/17/22) ASSESSMENT: 08/18/22: * BSGs improved as the day went on yesterday w/ fasting BSG remaining elevated this morning at 177 mg/dL * Will increase basal today ~20% and continue tightened Novolog parameters from yesterday * Remains on heparin gtt (mixed in dextrose) 08/17/22: * 76 year old male admitted for shortness of breath; PMH significant for lung cancer, CHF, and COPD. * HbA1c 7.5% today. * Patient was started on 40 units of Lantus at bedtime, fasting BSG 183 mg/dL today. * NovoLog was tightened from initial 30-10 parameters to 20-7 this morning. Carb ratio further tightened to 1 unit per 6 grams of carbohydrate consumed in response to elevated lunch BSG of 237 mg/dL. PLAN FOR INPATIENT GLYCEMIC CONTROL: * Hold outpatient oral diabetes medications * Basal insulin * Lantus 48 units SQ HS * Bolus insulin * NovoLog per scale ACHS or Q6hrs while NPO * Goal Range: Low 110 mg/dL - High 140 mg/dL * Correction Factor: 20 mg/dL/unit * Nutritional / Prandial insulin per carb ratio of 1 unit per 6 grams CHO consumed
--- NOTE | 2022-08-18 12:52 | Pulmonology Progress Note ---
Date of Service August 18, 2022 Assessment & Plan (1) SOB (shortness of breath): (2) Pulmonary hypertension: (3) Lung cancer: Laterality: right Lung location: lower lobe of lung Qualified Code(s): C34.31 - Malignant neoplasm of lower lobe, right bronchus or lung (4) COPD with emphysema: Plan Chest x-ray 08/16/2022 personally reviewed: Portable film, blunting of bilateral costophrenic and cardiophrenic angles, increased right hilar marking. Port-A-Cath in place, no clear infiltrate appreciated Doppler 08/16/2022: Normal compressibility of the common femoral vein through the proximal calf veins 2D echo 08/17/2022: EF 65-70%, left atrium severely dilated, trace MR, mild TR, RVSP 40-50 mmHg --Shortness of breath Multifactorial I think it is a combination of new onset A-fib RVR on top of diastolic CHF Patient also has severe COPD There is no active wheezing, I doubt patient is in COPD exacerbation Given negative DVT, VQ scan which only did perfusion showed defect in the right lower lobe superior segment with the masses. Patient is saturating 92-94% on room air The possibility of patient having PE is low -- Pulmonary hypertension Likely combination of type II and type III Continue with diuretics and inhalers --Stage IV adenocarcinoma of the lung Originating in the right lower lobe Patient finished 1 round of chemotherapy but did not tolerate it well He is not planning to have any more chemotherapies in future --Chronic left-sided pleural effusion With pleural plaques No need for any intervention -- COPD with emphysema Severe Continue with bronchodilators On Trelegy inhaler at home Not a good candidate for azithromycin given the QTc of 426 PFT 12/23/2021: Severe airflow obstruction with an FEV1 of 37%. Air-trapping noted with an RV of 195%. DLCO unremarkable 88%. Plan: Patient will benefit from rehab placement, if he is willing to go. Given the low probability of PE, no need for anticoagulation from pulmonary perspective. Would advise primary team to get in touch with cardiology and make sure patient has no A-fib. Overall prognosis of the is poor, palliative care should be considered Case was discussed with Dr. Lerma Please note the above document was generated using voice recognition software. It may contain grammatical, syntax or spelling errors.Any formal questions or concerns about the content, text or information contained within the body of this dictation should be directly addressed to the provider for clarification. Admission and Anticipated Discharge Date Admission Date: August 16, 2022 Subjective Patient seen and examined at bedside. No acute distress, no adverse events overnight Patient said he is just feeling the same. The breathing has improved compared to when he came to the hospital. Coughing and bringing up clear phlegm. Denies any hemoptysis No fever or chills. Asking to go home. He was saturating 97% on 2 L nasal cannula. I went down to half a liter. Review of Systems Review of Systems: All systems reviewed & are unremarkable except as noted in Subjective Physical Exam Physical Exam: Constitutional: No acute distress HEENT: EOMI, PERRLA Respiratory system: Decreased air entry bilaterally, more decreased on the right lower side, no wheeze, no rhonchi, mild crackles bilateral lower lobes CVS: S1-S2 positive, no murmurs or gallops, accentuated P2 Abdomen: Soft, nontender, nondistended, positive bowel sounds x4, obese Extremities: +2 pulses bilaterally radialis/ dorsalis pedis, no cyanosis, +1 pitting edema bilateral lower extremity Neuro: Awake alert oriented x3 Psych: Normal mood and affect G/U: No Farmer Skin: no rashes, warm and dry Lymphatic: no cervical or axillary lymphadenopathy Results & Data Results & Data Vital Signs (Past 12 Hours) Vital Signs Temp Pulse Pulse Resp BP Pulse Ox Pulse Ox 08/18/22 11:18 36.4 C L 93 H 19 117/60 99 08/18/22 11:02 63 22 97 08/18/22 10:18 96 08/18/22 07:49 91 H 08/18/22 07:49 08/18/22 07:42 90 20 96 08/18/22 07:07 36.6 C 91 H 20 129/68 96 08/18/22 04:00 36.5 C 97 H 20 122/67 97 08/18/22 02:20 90 18 97 Pulse Ox O2 Del Method O2 Flow Rate O2 Flow Rate O2 Flow Rate 08/18/22 11:18 Nasal Cannula 2 08/18/22 11:02 Nasal Cannula 1 08/18/22 10:18 90 2 2 08/18/22 07:49 08/18/22 07:49 Nasal Cannula 0.5 08/18/22 07:42 Nasal Cannula 2 08/18/22 07:07 Nasal Cannula 2 08/18/22 04:00 Nasal Cannula 08/18/22 02:20 Nasal Cannula 2 Laboratory Results 08/18/22 05:24 08/18/22 05:24 PG Care Time/CCT Total # of Minutes Spent Total Time Spent with Patient: Total time spent is greater than 50% in coordination of care (as documented) at patient's floor/unit and/or counseling patient: Coding Level of Care Code 56726 SUB INP/OBS CARE 2/35MIN Diagnoses SOB (shortness of breath) R06.02 Pulmonary hypertension I27.20 Lung cancer C34.31 Laterality: right Lung location: lower lobe of lung COPD with emphysema J43.9
[2022-08-18 13:37] LABS: Partial Thromboplastin Ratio 1.6; Partial Thromboplastin Time 44.2 Seconds (21.0-31.0)
--- NOTE | 2022-08-18 17:27 | Hospitalist Progress Note ---
Date of Service August 18, 2022 Assessment & Plan (1) COPD with emphysema: (2) CHF (congestive heart failure): (3) Advanced COPD: Plan: Per previous hospitalist notes with addendum: 76-year-old male with multiple comorbid condition including lung cancer, COPD, CHF, CKD, CAD status post CABG who was sent from pulmonology clinic to rule out PE. Patient reports increasing shortness of breath for several month on exertion. Shortness of breath multifactorial; possible acute on chronic systolic and diastolic heart failure Afebrile, normotensive and saturating well on room air since admission. Chest x-ray shows cardiomegaly emphysema; RIGHT perihilar mass lesion remained unchanged Venous duplex did not show DVT Pulmonary perfusion imaging shows large segmental perfusion defect likely associated with patient's known bronchogenic malignancy Echocardiogram shows EF of 65 to 70%; left atrial severely dilated. Pulmonology on board; Cardiology on board; recommend no further cardiac work-up. His EKG on admission shows questionable A-fib; will ask cardiology to reevaluate the EKG. He is currently on heparin drip. Decision regarding anticoagulation to be made after ruling out A-fib and after discussion with pulmonology. Resume home diuretics Continue on home inhaler and nebulization for COPD. 08/18 Now on room air Acute PE unlikely per pulmonary service Continue usual inhalers Hold diuretics for now as creatinine increased from 2.5-2.8 Repeat renal function tomorrow DC heparin as patient has remained in sinus rhythm, cardiology feels patient is having PACs and PVCs not atrial fibrillation (4) Lung cancer: Plan: Received one chemotherapy last month, could not tolerate it Patient to follow-up with oncology as outpatient next week Plan Other conditions; Chronic kidney disease stage IV, presents with creatinine of 2.5, currently 2.8, repeat creatinine tomorrow Anemia of chronic kidney disease. Hemoglobin 10., seems to be stable. Chronic gout, on allopurinol. History of coronary artery disease, status post coronary artery bypass grafting. On aspirin, statin, and beta chau. Benign prostatic hypertrophy, on finasteride. Gastroesophageal reflux disease, on omeprazole. Depression, on sertraline. Hyperlipidemia, on statin. Anthony's esophagus, on proton pump inhibitor. Status post ileostomy status. Deep venous thrombosis prophylaxis, On IV heparin Full code Lives with family; Disposition Anticipate discharge to home tomorrow with home health services plan of care discussed with patient and his at the bedside in detail and at length all questions answered they are understanding, agreeable, comfortable with the plan of care Admission and Anticipated Discharge Date Admission Date: August 16, 2022 Subjective Follow-up for shortness of breath, lung cancer, COPD, etc. Seen resting in bed side chair, comfortable, off oxygen States he feels improved since admission Breathing is almost back to baseline, no cough, chest pain, palpitations, dizziness, fevers or chills No other symptoms Has been in sinus rhythm since last night by remediation technician Review of Systems Review of Systems: all noted and negative except for above Physical Exam Physical Exam: General- oriented x 3, not in distress, speaks in sentences with no effort or accessory muscle use Eyes- anicteric Neck- no JVD Lungs-diminished but clear breath sounds bilaterally Heart- normal rate, regular rhythm; no murmurs Abdomen- normal bowel sounds, nondistended, soft, nontender Extremities-mild pretibial edema, no erythema/warmth/tenderness, no calf tenderness Neuro- alert, oriented x 3; no gross focal neurologic deficits Skin- warm & dry Results & Data Results & Data Vital Signs (Past 12 Hours) Vital Signs Temp Pulse Pulse Resp BP Pulse Ox Pulse Ox 08/18/22 16:00 88 08/18/22 15:17 36.5 C 82 20 115/68 97 08/18/22 14:59 90 20 94 08/18/22 11:18 36.4 C L 93 H 19 117/60 99 08/18/22 11:02 63 22 97 08/18/22 10:18 96 08/18/22 07:49 91 H 08/18/22 07:49 08/18/22 07:42 90 20 96 08/18/22 07:07 36.6 C 91 H 20 129/68 96 Pulse Ox O2 Del Method O2 Flow Rate O2 Flow Rate O2 Flow Rate 08/18/22 16:00 08/18/22 15:17 Room Air 08/18/22 14:59 Room Air 08/18/22 11:18 Nasal Cannula 2 08/18/22 11:02 Nasal Cannula 1 08/18/22 10:18 90 2 2 08/18/22 07:49 08/18/22 07:49 Nasal Cannula 0.5 08/18/22 07:42 Nasal Cannula 2 08/18/22 07:07 Nasal Cannula 2 all noted and reviewed including below (2) CHF (congestive heart failure) Heart failure chronicity: acute Heart failure type: unspecified Qualified Code(s): I50.9 - Heart failure, unspecified (4) Lung cancer Laterality: unspecified laterality Lung location: unspecified part of lung Qualified Code(s): C34.90 - Malignant neoplasm of unspecified part of unspecified bronchus or lung
[2022-08-18] MEDS: METOPROLOL SUCC 25MG EXT REL TAB PO SCH (21:00)
[2022-08-18] MEDS: ATORVASTATIN 40 MG TAB PO SCH (21:00)
[2022-08-19] MEDS: ALBUT/IPRATROP 3MG/0.5MG NEB 3 ML VIAL NEB PRN (01:39)
[2022-08-19] MEDS: ALBUT/IPRATROP 3MG/0.5MG NEB 3 ML VIAL NEB SCH ×2 (06:51→10:24)
[2022-08-19 08:19] LABS: Basophils # (auto) 0.04 K/uL (0-0.2); Basophils % (auto) 0.3 %; Eosinophils # (auto) 0.39 K/uL (0-0.50); Eosinophils % (auto) 3.4 %; Hemoglobin 11.5 g/dl (14.0-18.0); Immature Granulocytes # (auto) 0.04 K/uL (0.01-0.20); Immature Granulocytes % (auto) 0.3 %; Lymphocytes # (auto) 1.61 K/uL (1.2-3.4); Mean Corpuscular Hemoglobin 31.1 pg (25.0-34.0); Mean Corpuscular Hgb Conc 31.9 g/dL (32.0-36.0); Mean Corpuscular Volume 97.3 fL (80.0-100.0); Mean Platelet Volume 11.4 fL (9.4-12.4); Monocytes # (auto) 0.77 K/uL (0.11-0.59); Monocytes % (auto) 6.7 %; Neutrophils # (auto) 8.65 K/uL (1.40-6.50); Neutrophils % (auto) 75.3 %; Platelet Count 196 K/uL (130-400); RDW Coefficient of Variation 16.7 % (11.5-14.5); RDW Standard Deviation 59.3 fL (36.4-46.3)
[2022-08-19 08:35] LABS: Albumin Globulin Ratio 1.1 (0.9-2); Albumin Level 3.7 gm/dl (3.4-5.0); BUN Creatinine Ratio 33.2 (10-20); Bilirubin,Total 0.8 mg/dl (0.2-1.0); Calcium 9.8 mg/dl (8.6-10.3); Creatinine Clr Calc Pharmacy 28.3 ml/min; Est GFR (African American) 26.5 ml/min; Est GFR (Non-African American) 22.9 ml/min; Globulin 3.5 gm/dl (2.5-4.0); Potassium 3.6 mmol/L (3.5-5.1); Total Protein 7.2 gm/dl (6.0-8.3)
[2022-08-19] MEDS: INSULIN ASPART PER UNIT CHARGE SC SCH ×2 (08:55→12:37)
[2022-08-19] MEDS: ASPIRIN 81 MG ECTAB PO SCH (08:55)
[2022-08-19] MEDS: FAMOTIDINE 20 MG TAB PO SCH (08:55)
[2022-08-19] MEDS: FINASTERIDE 5 MG TAB PO SCH (08:56)
[2022-08-19] MEDS: CHOLECALCIFEROL 1,000 UNITS 25 MCG TAB PO SCH (08:56)
[2022-08-19] MEDS: SERTRALINE HCL 50 MG TABLET PO SCH (08:56)
[2022-08-19] MEDS: PANTOprazole 40 MG TAB PO SCH (08:56)
[2022-08-19] MEDS: UMECLIDINIUM/VILANTEROL 62.5/25MCG 7 PUFFS/INHALER INH SCH (08:57)
[2022-08-19] MEDS: FLUTICASONE FUROATE 100MCG 14 PUFFS/INHALER INH SCH (08:57)
--- NOTE | 2022-08-19 09:04 | Pulmonology Progress Note ---
Date of Service August 19, 2022 Assessment & Plan (1) SOB (shortness of breath): (2) Pulmonary hypertension: (3) Lung cancer: Laterality: right Lung location: lower lobe of lung Qualified Code(s): C34.31 - Malignant neoplasm of lower lobe, right bronchus or lung (4) COPD with emphysema: Plan Chest x-ray 08/16/2022 personally reviewed: Portable film, blunting of bilateral costophrenic and cardiophrenic angles, increased right hilar marking. Port-A-Cath in place, no clear infiltrate appreciated Doppler 08/16/2022: Normal compressibility of the common femoral vein through the proximal calf veins 2D echo 08/17/2022: EF 65-70%, left atrium severely dilated, trace MR, mild TR, RVSP 40-50 mmHg --Shortness of breath Multifactorial I think it is a combination of new onset A-fib RVR on top of diastolic CHF Patient also has severe COPD There is no active wheezing, I doubt patient is in COPD exacerbation Given negative DVT, VQ scan which only did perfusion showed defect in the right lower lobe superior segment with the masses. Patient is saturating 92-94% on room air The possibility of patient having PE is low -- Pulmonary hypertension Likely combination of type II and type III Continue with diuretics and inhalers --Stage IV adenocarcinoma of the lung Originating in the right lower lobe Patient finished 1 round of chemotherapy but did not tolerate it well He is not planning to have any more chemotherapies in future --Chronic left-sided pleural effusion With pleural plaques No need for any intervention -- COPD with emphysema Severe Continue with bronchodilators On Trelegy inhaler at home Not a good candidate for azithromycin given the QTc of 426 PFT 12/23/2021: Severe airflow obstruction with an FEV1 of 37%. Air-trapping noted with an RV of 195%. DLCO unremarkable 88%. Plan: Patient will benefit from rehab placement, if he is willing to go. Given the very low probability of PE, no need for anticoagulation from pul monary perspective. Overall prognosis of the is poor, palliative care should be considered Outpatient pulmonary follow-up with his final armature tester Please note the above document was generated using voice recognition software. It may contain grammatical, syntax or spelling errors.Any formal questions or concerns about the content, text or information contained within the body of this dictation should be directly addressed to the provider for clarification. Admission and Anticipated Discharge Date Admission Date: August 16, 2022 Subjective Patient seen and examined at bedside. No acute distress, no adverse events overnight He was saturating 93% on room air at the time of examination He did state that that shortness of breath is still there especially when he is exerting but is much better compared to when he came to the hospital Denies any nausea or vomiting, fair appetite No headache, no dizziness Review of Systems Review of Systems: All systems reviewed & are unremarkable except as noted in Subjective Physical Exam Physical Exam: Constitutional: No acute distress HEENT: EOMI, PERRLA Respiratory system: Decreased air entry bilaterally, more decreased on the right lower side, no wheeze, no rhonchi, mild crackles bilateral lower lobes CVS: S1-S2 positive, no murmurs or gallops, accentuated P2 Abdomen: Soft, nontender, nondistended, positive bowel sounds x4, obese Extremities: +2 pulses bilaterally radialis/ dorsalis pedis, no cyanosis, +1 pitting edema bilateral lower extremity Neuro: Awake alert oriented x3 Psych: Normal mood and affect G/U: No Farmer Skin: no rashes, warm and dry Lymphatic: no cervical or axillary lymphadenopathy Results & Data Results & Data Vital Signs (Past 12 Hours) Vital Signs Temp Pulse Pulse Resp BP Pulse Ox O2 Del Method 08/19/22 07:31 36.5 C 90 22 127/65 99 Room Air 08/19/22 07:30 92 H 08/19/22 06:51 76 16 94 Room Air 08/19/22 02:32 36.8 C 65 18 113/64 95 Room Air 08/19/22 01:39 84 18 96 Room Air 08/18/22 22:35 36.7 C 84 18 117/62 93 Room Air 08/18/22 22:06 Room Air 08/18/22 21:12 Room Air Laboratory Results 08/19/22 07:51 08/19/22 07:51 PG Care Time/CCT Total # of Minutes Spent Total Time Spent with Patient: Total time spent is greater than 50% in coordination of care (as documented) at patient's floor/unit and/or counseling patient: Coding Level of Care Code 70639 SUB INP/OBS CARE 2/35MIN Diagnoses SOB (shortness of breath) R06.02 Pulmonary hypertension I27.20 Lung cancer C34.31 Laterality: right Lung location: lower lobe of lung COPD with emphysema J43.9
[2022-08-19] MEDS: METOPROLOL SUCC 50MG EXT REL TAB PO SCH (09:31)
[2022-08-19] MEDS: allopurinoL 300 MG TAB PO SCH (09:31)
--- NOTE | 2022-08-19 09:47 | Hospitalist Progress Note ---
Date of Service August 19, 2022 delayed entry date of service noted above Assessment & Plan (1) COPD with emphysema: (2) CHF (congestive heart failure): (3) Advanced COPD: Plan: Per previous hospitalist notes with addendum: 76-year-old male with multiple comorbid condition including lung cancer, COPD, CHF, CKD, CAD status post CABG who was sent from pulmonology clinic to rule out PE. Patient reports increasing shortness of breath for several month on exertion. Shortness of breath multifactorial; possible acute on chronic systolic and diastolic heart failure Afebrile, normotensive and saturating well on room air since admission. Chest x-ray shows cardiomegaly emphysema; RIGHT perihilar mass lesion remained unchanged Venous duplex did not show DVT Pulmonary perfusion imaging shows large segmental perfusion defect likely associated with patient's known bronchogenic malignancy Echocardiogram shows EF of 65 to 70%; left atrial severely dilated. Pulmonology on board; Cardiology on board; recommend no further cardiac work-up. His EKG on admission shows questionable A-fib; will ask cardiology to reevaluate the EKG. He is currently on heparin drip. Decision regarding anticoagulation to be made after ruling out A-fib and after discussion with pulmonology. Resume home diuretics Continue on home inhaler and nebulization for COPD. 08/18 Now on room air Acute PE unlikely per pulmonary service Continue usual inhalers Hold diuretics for now as creatinine increased from 2.5-2.8 Repeat renal function tomorrow DC heparin as patient has remained in sinus rhythm, cardiology feels patient is having PACs and PVCs not atrial fibrillation 08/19 remains on room air crea improved to 2.3 resume Furosemide (4) Lung cancer: Plan: Received one chemotherapy last month, could not tolerate it Patient to follow-up with oncology as outpatient next week Plan Other conditions; Chronic kidney disease stage IV, crea 2.3 Anemia of chronic kidney disease. Hemoglobin 10., seems to be stable. Chronic gout, on allopurinol. History of coronary artery disease, status post coronary artery bypass grafting. On aspirin, statin, and beta chau. Benign prostatic hypertrophy, on finasteride. Gastroesophageal reflux disease, on omeprazole. Depression, on sertraline. Hyperlipidemia, on statin. Anthony's esophagus, on proton pump inhibitor. Status post ileostomy status. Deep venous thrombosis prophylaxis, On IV heparin Full code Lives with family; Disposition d/c home plan of care discussed with patient and his at the bedside in detail and at length all questions answered they are understanding, agreeable, comfortable with the plan of care Admission and Anticipated Discharge Date Admission Date: August 16, 2022 Subjective ff up for shortness of breath, etc seen resting in chair, comfortable in good spirits states he feels fine overall no chest pain, dyspnea, palpitations, dizziness no fever/chills, cough no other new symptoms states he is ready and would like to be discharged Review of Systems Review of Systems: all noted and negative except for above Physical Exam Physical Exam: General- oriented x 3, not in distress, speaks in sentences with no effort or accessory muscle use Eyes- anicteric Neck- no JVD Lungs- clear breath sounds bilaterally, no rales/wheezes Heart- normal rate, regular rhythm; no murmurs Abdomen- normal bowel sounds, nondistended, soft, nontender Extremities- trace pretibial edema, no calf tenderness Neuro- alert, oriented x 3; no gross focal neurologic deficits Skin- warm & dry Results & Data Results & Data Vital Signs (Past 12 Hours) Vital Signs Temp Pulse Pulse Resp BP Pulse Ox O2 Del Method 08/19/22 07:31 36.5 C 90 22 127/65 99 Room Air 08/19/22 07:30 92 H 08/19/22 06:51 76 16 94 Room Air 08/19/22 02:32 36.8 C 65 18 113/64 95 Room Air 08/19/22 01:39 84 18 96 Room Air 08/18/22 22:35 36.7 C 84 18 117/62 93 Room Air 08/18/22 22:06 Room Air all noted and reviewed including below (2) CHF (congestive heart failure) Heart failure chronicity: acute Heart failure type: unspecified Qualified Code(s): I50.9 - Heart failure, unspecified (4) Lung cancer Laterality: unspecified laterality Lung location: unspecified part of lung Qualified Code(s): C34.90 - Malignant neoplasm of unspecified part of u nspecified bronchus or lung
[2022-08-19 11:36] VITALS: BP 121/70; PULSE 87; TEMP 98.2; O2SAT 95
[2022-08-19] MEDS ORDERED: LANTUS PER UNIT CHARGE SQ ONE (14:08)
[2022-08-19] MEDS ORDERED: INSULIN ASPART PER UNIT CHARGE SC ONE (14:08)
--- NOTE | 2022-09-03 13:59 | Discharge Summary ---
Discharge Summary Date of Service September 03, 2022 Notes For Next Care Provider Medication Changes From Visit None Admission HPI Per Admitting Provider HISTORY OF PRESENT ILLNESS: This is a 76-year-old male with past medical history significant for type 2 diabetes, chronic gout, hyperparathyroidism, history of COPD, history of pleural effusions, history of chronic combined systolic and diastolic CHF, chronic kidney disease stage IV, anemia of chronic kidney disease, history of CAD, status post CABG, hypertension, Anthony's esophagus, Hector syndrome, BPH, venous stasis dermatitis of both lower extremities, history of colostomy hernia, status post ileostomy status, generalized anxiety disorder, history of metastatic primary lung cancer. Started chemotherapy a month ago, but could not tolerate it. Currently not on any chemotherapy. He was having ongoing shortness of breath for several months. He went to see pulmonary today who advised him to come to the hospital to rule out any PE. The patient uses oxygen while sleeping. He says walking 5-6 feet makes him short of breath. He sleeps in a recliner. He has chronic swelling in the lower extremities, hemodynamically stable. Currently, saturating okay on room air. Respiratory BioFire is negative. Lower extremity venous Doppler was negative. Chest x-ray showed somewhat CHF. Denies any fevers or chills. Has s ome cough. No nausea, no vomiting, no chest pain, no abdominal pain. Appetite is okay. No difficulty swallowing. Denies any headache. No blurred visions, no runny nose, no sore throat. Normal bowel and bladder movements. ALLERGIES: No known drug allergies. PAST MEDICAL HISTORY: As mentioned above. PAST SURGICAL HISTORY: Bronchoscopy with biopsy, bilateral multiple bronchoscopies, multiple colonoscopies, dental surgery, multiple EGDs, EGD with biopsy, total colectomy with ileostomy, right total hip replacement. MEDICATIONS: The patient is on albuterol 2 puffs inhalation q.i.d. p.r.n., allopurinol 300 mg p.o. a.m., aspirin 81 mg p.o. a.m., atorvastatin 40 mg p.o. at bedtime, vitamin D 50 mcg p.o. a.m., famotidine 20 mg p.o. a.m., finasteride 5 mg p.o. daily, fluticasone/umiclid1 inhalation daily, Lasix 80 mg p.o. b.i.d., NovoLog t.i.d., Lantus 40 units at bedtime, ipratropium bromide inhalation q.i.d. p.r.n., metolazone 5 mg p.o. weekly p.r.n., metoprolol succinate 50 mg in a.m. and 25 mg in p.m., omeprazole 40 mg p.o. a.m., sertraline 50 mg p.o. a.m., spironolactone 12.5 mg p.o. a.m. FAMILY HISTORY: Significant for father had prostate cancer, brother has [place], fa ther has [place]. SOCIAL HISTORY: . Quit smoking in 2004, smoked 3 packs a day for 35 years. No alcohol use. No drug use. REVIEW OF SYSTEMS: As per HPI. Rest of the review of systems is negative. Admission Exam Per Admitting Provider PHYSICAL EXAMINATION: GENERAL: The patient is obese, not in acute distress. VITAL SIGNS: Temperature 36.6, pulse 91, respiratory rate 23, blood pressure 117/71, oxygen 95% on room air. HEENT: Pupils equal, round and reactive to light. Oral mucosa moist. NECK: No JVD, no neck masses. CARDIOVASCULAR: S1 and S2 heard. Regular rate and rhythm. No murmur, no gallop. RESPIRATORY SYSTEM: Normal AP diameter. No accessory muscle use. No wheezing or crackles. ABDOMEN: Soft, bowel sounds present. Ileostomy bag seen. Nontender. CENTRAL NERVOUS SYSTEM: Alert and oriented. Speech is clear. Obeys simple commands. Moves extremities. EXTREMITIES: Bilateral lower extremity chronic skin changes, chronic venous stasis seen with +2 edema seen. Mild erythematous changes. Principal Dx & Hospital Course #1 = Principal Diagnosis (1) COPD with emphysema: (2) CHF (congestive heart failure): (3) Advanced COPD: Per previous hospitalist notes with addendum: 76-year-old male with multiple comorbid condition including lung cancer, COPD, CHF, CKD, CAD status post CABG who was sent from pulmonology clinic to rule out PE. Patient reports increasing shortness of breath for several month on exertion. Shortness of breath multifactorial; possible acute on chronic systolic and diastolic heart failure Afebrile, normotensive and saturating well on room air since admission. Chest x-ray shows cardiomegaly emphysema; RIGHT perihilar mass lesion remained unchanged Venous duplex did not show DVT Pulmonary perfusion imaging shows large segmental perfusion defect likely associated with patient's known bronchogenic malignancy Echocardiogram shows EF of 65 to 70%; left atrial severely dilated. Pulmonology on board; Cardiology on board; recommend no further cardiac work-up. His EKG on admission shows questionable A-fib; will ask cardiology to reevaluate the EKG. He is currently on heparin drip. Decision regarding anticoagulation to be made after ruling out A-fib and after discussion with pulmonology. Resume home diuretics Continue on home inhaler and nebulization for COPD. 08/18 Now on room air Acute PE unlikely per pulmonary service Continue usual inhalers Hold diuretics for now as creatinine increased from 2.5-2.8 Repeat renal function tomorrow DC heparin as patient has remained in sinus rhythm, cardiology feels patient is having PACs and PVCs not atrial fibrillation 08/19 remains on room air crea improved to 2.3 resume Furosemide (4) Lung cancer: Received one chemotherapy last month, could not tolerate it Patient to follow-up with oncology as outpatient next week Plan Other conditions; Chronic kidney disease stage IV, crea 2.3 Anemia of chronic kidney disease. Hemoglobin 10., seems to be stable. Chronic gout, on allopurinol. History of coronary artery disease, status post coronary artery bypass grafting. On aspirin, statin, and beta chau. Benign prostatic hypertrophy, on finasteride. Gastroesophageal reflux disease, on omeprazole. Depression, on sertraline. Hyperlipidemia, on statin. Anthony's esophagus, on proton pump inhibitor. Status post ileostomy status. Deep venous thrombosis prophylaxis, On IV heparin Full code Lives with family; Disposition d/c home plan of care discussed with patient and his at the bedside in detail and at length all questions answered they are understanding, agreeable, comfortable with the plan of care Discharge Exam General- oriented x 3, not in distress, speaks in sentences with no effort or accessory muscle use Eyes- anicteric Neck- no JVD Lungs- clear breath sounds bilaterally, no rales/wheezes Heart- normal rate, regular rhythm; no murmurs Abdomen- normal bowel sounds, nondistended, soft, nontender Extremities- trace pretibial edema, no calf tenderness Neuro- alert, oriented x 3; no gross focal neurologic deficits Skin- warm & dry Updated Medication List Medication Instructions Recorded Confirmed Type albuterol sulfate 2.5 mg/3 mL 2.5 mg inhalation Q4 PRN cough,SOB 03/08/18 08/16/22 History (0.083 %) solution for nebulization allopurinol 300 mg tablet 300 mg PO QAM 03/08/18 08/16/22 History aspirin 81 mg tablet,delayed 81 mg PO QAM 03/08/18 08/16/22 History release (Dane Low Dose Aspirin) atorvastatin 40 mg tablet 40 mg PO HS 03/08/18 08/16/22 History furosemide 80 mg tablet 80 mg PO BID 03/08/18 08/16/22 History insulin aspart U-100 100 unit/mL 1 dose subcut BID 03/08/18 08/16/22 History (3 mL) subcutaneous pen (Novolog FlexPen U-100 Insulin aspart) insulin glargine 100 unit/mL 40 unit subcut HS 03/08/18 08/16/22 History subcutaneous solution (Lantus U-100 Insulin) metoprolol succinate 50 mg 50 mg PO UD 03/08/18 08/16/22 History tablet,extended release 24 hr omeprazole 40 mg capsule,delayed 40 mg PO QAM 03/08/18 08/16/22 History release spironolactone 25 mg tablet 12.5 mg PO QAM #0 tabs 01/27/20 08/16/22 Rx cholecalciferol (vitamin D3) 50 50 mcg PO QAM 12/04/20 08/16/22 History mcg (2,000 unit) capsule famotidine 20 mg tablet 20 mg PO HS 12/04/20 08/16/22 History albuterol sulfate 90 mcg/actuation 2 puff inhalation QID PRN 02/12/21 08/16/22 History aerosol inhaler (ProAir HFA) Shortness Of Breath metolazone 5 mg tablet 5 mg PO WK 02/12/21 08/16/22 History promethazine 25 mg tablet 25 mg PO Q6H PRN NAUSEA/VOMITING 02/12/21 08/16/22 History finasteride 5 mg tablet 5 mg PO QAM #90 tabs 12/01/21 08/16/22 Rx Portable Oxygen #1 ea 01/29/22 08/16/22 Rx sertraline 50 mg tablet 50 mg PO QAM 02/03/22 08/16/22 History cholecalciferol (vitamin D3) 50 50 mcg PO DAILY 08/16/22 08/16/22 History mcg (2,000 unit) capsule (Vitamin D3) guaifenesin 600 mg tablet, 600 mg PO AMHS 08/16/22 08/16/22 History extended release 12 hr (Mucinex) hydroxyzine HCl 25 mg tablet 25 mg PO TID PRN Anxiety 08/16/22 08/16/22 History ipratropium 0.5 mg-albuterol 3 mg 3 ml inhalation Q4H PRN cough,SOB 08/16/22 08/16/22 History (2.5 mg base)/3 mL nebulization soln loperamide 2 mg tablet 2 mg PO QID PRN Diarrhea 08/16/22 08/16/22 History fluticasone fur. 100 mcg-umeclid 1 inh inhalation DAILY #3 Inhalers 08/18/22 Rx 62.5 mcg-vilant 25 mcg inhalat.powder (Trelegy Ellipta) Hospital Stay Data Consultations 08/16/22 19:48 ED Decision to Admit Stat 08/17/22 08:00 Consult Cardiology Routine Consult Pulmonology Routine Diagnostic Imagining Performed 08/16/22 16:55 US venous doppler LE BI Stat Pending Results Patient Have Any Pending Studies at Discharge: No Discharge Instructions Given to Patient (Per Discharging Provider) Please continue your usual medication regimen. PLEASE CALL YOUR PRIMARY CARE PHYSICIAN OR RETURN TO THE ER IF WITH WORSENING OF SYMPTOMS, INCLUDING Shortness of breath, chest pain, palpitations, dizziness, leg swelling, etc. FOLLOW UP WITH PRIMARY CARE PHYSICIAN IN 1 WEEK. FOLLOW-UP WITH LUNG SPECIALIST SCHEDULED. FOLLOW-UP WITH YOUR CANCER SPECIALIST SCHEDULED. Total Time Total Time Spent Total Time Spent (In Minutes): > 30 minutes
== END 2022-08-19 14:09 | disposition home health service (06) | DRG 291 ==
LOC: ED 14:03 → EDINP 20:48 → SUATTDRO 20:48 → 2S 23:29

== ENCOUNTER 2022-09-05 06:22 | Inpatient (IN) ==
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
[2022-09-05 08:32] LABS: Basophils # (auto) 0.01 K/uL (0-0.2); Basophils % (auto) 0.1 %; Eosinophils # (auto) 0.02 K/uL (0-0.50); Eosinophils % (auto) 0.2 %; Hemoglobin 12.3 g/dl (14.0-18.0); Immature Granulocytes # (auto) 0.05 K/uL (0.01-0.20); Immature Granulocytes % (auto) 0.4 %; Lymphocytes # (auto) 0.93 K/uL (1.2-3.4); Lymphocytes % (auto) 7.1 %; Mean Corpuscular Hemoglobin 31.1 pg (25.0-34.0); Mean Corpuscular Hgb Conc 32.4 g/dL (32.0-36.0); Mean Corpuscular Volume 96.2 fL (80.0-100.0); Monocytes # (auto) 0.73 K/uL (0.11-0.59); Monocytes % (auto) 5.6 %; Neutrophils # (auto) 11.34 K/uL (1.40-6.50); Neutrophils % (auto) 86.6 %; Platelet Count 200 K/uL (130-400); RDW Coefficient of Variation 14.7 % (11.5-14.5); RDW Standard Deviation 52.5 fL (36.4-46.3); Red Blood Count 3.95 M/uL (4.70-6.10); White Blood Count 13.08 K/ul (4.8-10.8)
[2022-09-05 09:01] LABS: Albumin Globulin Ratio 1.2 (0.9-2); Albumin Level 3.7 gm/dl (3.4-5.0); BUN Creatinine Ratio 40.7 (10-20); Bilirubin,Total 0.8 mg/dl (0.2-1.0); Calcium 9.3 mg/dl (8.6-10.3); Creatinine Clr Calc Pharmacy 38.5 ml/min; Est GFR (African American) 38.8 ml/min; Est GFR (Non-African American) 33.5 ml/min; Globulin 3.2 gm/dl (2.5-4.0); Potassium 3.8 mmol/L (3.5-5.1); Total Protein 6.9 gm/dl (6.0-8.3)
[2022-09-05 09:04] LABS: INR 1.1 (0.9-1.1); Partial Thromboplastin Time 27.1 Seconds (21.0-31.0); Prothrombin Time 11.3 Seconds (9.0-12.0)
--- NOTE | 2022-09-05 10:09 | History & Physical Report ---
Date of Service September 05, 2022 Assessment & Plan (1) Headache: Plan: 76 y/o male with a complicated medical history including metastatic lung cancer, COPD, combined systolic and diastolic CHF, insulin-requiring DM, and CAD who presented to the ED this morning with ongoing and worsening of headache over the last 10 days., now becoming so severe as to interfere with ADLs. Not controlled with hydrocodone and Tylenol. Outpatient MRI done for this complaint showed possible NPH and pt was scheduled to see neurology this week but pain has worsened to the point that family no longer feels like they can care for him safely at home. - Admit to med surg for observation - IV morphine for pain control - will adjust as needed - Repeat MRI brain due to worsening of symptoms - Consult neurology for additional recommendations - PT/OT evaluations due to generalized weakness and deconditioning - may need to consider rehab at discharge - Check UA due to recent reports of confusion (2) Left conjunctivitis: Plan: Ofloxacin drops x 7-10 days (3) CHF (congestive heart failure): Plan: Personally reviewed chest x-ray from today - evidence of pulmonary vascular congestion, known right lung mass Continue diuretics (4) CKD (chronic kidney disease): Plan: Creatinine appears to around baseline of 2 (5) COPD with emphysema: Plan: Continue inhalers although unclear how compliant is with these at home (6) Pulmonary hypertension: (7) Metastatic primary lung cancer: Plan: Follows with Dr. Bravo - received chemo x 1 but didn't tolerate, not planning for additonal chemo at this point (8) Sleep apnea: Plan: Wears O2 at night - 2-2.5 L (9) Diabetes mellitus, type 2: Plan: Continue basal insulin with sliding scale BSG ACHS Diabetic diet Plan Continue other home medications as appropriate Pt seen and reviewed with collaborating physician, Dr. Lowry. Plan of care discussed and as outlined above. Family updated at the bedside - all questions answered. Code Status: Full code but no prolonged measures DVT Prophylaxis: SubQ heparin Shannan Delvalle PA-C History of Present Illness Chief Complaint: Severe headache, weakness Primary Care Provider: FARHANA Sarah This is a 76 y/o male with stage IV lung cancer, CKD4, insulin-requiring DM2, COPD, chronic combined systolic and diastolic HF, anemia of CKD, HTN, BPH, Huma syndrome, chronic gout, secondary hyperparathyroidism, CAD, and venous stasis dermatitis of LE who presents to the ED today for worsening MARQUIS. He was seen in the ED yesterday for the same complaint, which has been ongoing for the last ten days. History from the patient is somewhat limited due to his current mental status so additional history was obtained from his family at the beside and from review of the outpatient records. He has noted a worsening headache that he has described to his family as it "feels like it's going to split open" - now with associated neck pain. Has been complaining most of frontal headache, pain in left side of head and now into the left neck. His family also notes intermittent confusion over the last couple of days described as being "incoherent" during conversations at times. His oral intake has been dramatically limited due to the severity of the pain. Yesterday, he ate a small amount of oatmeal and some peaches but reports that he can't chew b/c of the severe MARQUIS. No output in his colostomy bag today which is unusual per family His abdomen appears more distended but no complaints of nausea or vomiting. His family denies any recent fevers. At present, he feels okay if he doesn't move his head - received med (morphine per report) in the ambulance with some relief. Has hydrocodone at home which hasn't helped. Also tried Extra Strength Tylenol without relief. Of note, pt was recently admitted to this facility with SOB that was thought to be multifactorial - CHF, new onset afib w/ RVR, severe COPD, underlying lung cancer. His family reports that he has been using O2 2.5 L continuously since being home. He has chronic FAULKNER, which is unchanged. No increase in peripheral edema. Uses a walker for ambulation but cannot get around at present due to MARQUIS and weakness. Allergies Allergy/AdvReac Type Severity Reaction Status Date / Time No Known Allergies Allergy U Verified 08/05/22 16:20 Home Medications Medication Instructions Recorded Confirmed Type albuterol sulfate 2.5 mg/3 mL 2.5 mg inhalation Q4 PRN cough,SOB 03/08/18 09/05/22 History (0.083 %) solution for nebulization allopurinol 300 mg tablet 300 mg PO QAM 03/08/18 09/05/22 History aspirin 81 mg tablet,delayed 81 mg PO QAM 03/08/18 09/05/22 History release (Dane Low Dose Aspirin) atorvastatin 40 mg tablet 40 mg PO HS 03/08/18 09/05/22 History furosemide 80 mg tablet 80 mg PO BID 03/08/18 09/05/22 History insulin aspart U-100 100 unit/mL 1 dose subcut BID 03/08/18 09/05/22 History (3 mL) subcutaneous pen (Novolog FlexPen U-100 Insulin aspart) insulin glargine 100 unit/mL 40 unit subcut HS 03/08/18 09/05/22 History subcutaneous solution (Lantus U-100 Insulin) metoprolol succinate 50 mg 50 mg PO UD 03/08/18 09/05/22 History tablet,extended release 24 hr omeprazole 40 mg capsule,delayed 40 mg PO QAM 03/08/18 09/05/22 History release spironolactone 25 mg tablet 12.5 mg PO QAM #0 tabs 01/27/20 09/05/22 Rx cholecalciferol (vitamin D3) 50 50 mcg PO QAM 12/04/20 09/05/22 History mcg (2,000 unit) capsule famotidine 20 mg tablet 20 mg PO HS 12/04/20 09/05/22 History albuterol sulfate 90 mcg/actuation 2 puff inhalation QID PRN 02/12/21 09/05/22 History aerosol inhaler (ProAir HFA) Shortness Of Breath metolazone 5 mg tablet 5 mg PO WK 02/12/21 09/05/22 History promethazine 25 mg tablet 25 mg PO Q6H PRN NAUSEA/VOMITING 02/12/21 09/05/22 History finasteride 5 mg tablet 5 mg PO QAM #90 tabs 12/01/21 09/05/22 Rx Portable Oxygen #1 ea 01/29/22 09/05/22 Rx sertraline 50 mg tablet 50 mg PO QAM 02/03/22 09/05/22 History guaifenesin 600 mg tablet, 600 mg PO AMHS 08/16/22 09/05/22 History extended release 12 hr (Mucinex) hydroxyzine HCl 25 mg tablet 25 mg PO TID PRN Anxiety 08/16/22 09/05/22 History ipratropium 0.5 mg-albuterol 3 mg 3 ml inhalation Q4H PRN cough,SOB 08/16/22 09/05/22 History (2.5 mg base)/3 mL nebulization soln loperamide 2 mg tablet 2 mg PO QID PRN Diarrhea 08/16/22 09/05/22 History fluticasone fur. 100 mcg-umeclid 1 inh inhalation DAILY #3 Inhalers 08/18/22 09/05/22 Rx 62.5 mcg-vilant 25 mcg inhalat.powder (Trelegy Ellipta) Past Med/Surg History Medical History (Updated 09/05/22 @ 11:41 by Kassie Delvalle PA-C) Advanced COPD Anemia HX Anxiety Arthritis NECK Back problem HX INJECTIONS, POSSIBLE NEED FOR SX Anthony's esophagus BPH (benign prostatic hyperplasia) CAD (coronary artery disease) Last cardiac cath 08/09/2011 and demonstrated severe [place] vessel disease and an occluded SVG to the OM2. All other grafts noted to be patent at that time. 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 Smith Congestive heart failure chronic combined systolic and diastolic EF 45% 2011 Diabetes mellitus, type 2 IDDM Dyslipidemia GERD (gastroesophageal reflux disease) Gout HX History of colon polyps History of radiation therapy 5 TX A FEW YRS AGO FOR LUNG NODULES..."MADE IT GROW MORE" History of renal calculi HTN (hypertension) Ileostomy, has currently PER PT: SWELLED UP AROUND WHERE BAG HOOKS UP "RUPTURED" NO PROBLEMS WITH FUNCTIONING , DR AWARE...POSSIBLE NEED FOR UPCOMING SX Lung cancer (07/23/20) Right Lower Lobe - Adenocarcinoma Lung nodules ? DETAILS/REASON FOR UPCOMING PROCEDURE Metastatic primary lung cancer MRSA (methicillin resistant Staphylococcus aureus) Per infection control, 02/2018: "Patient has a history of MRSA in a wound and a nasal screen in 2014. Patient requires contact precautions." Myocardial Infarction 2004 - CABG X5 VESSELS. Subsequent caths with stenting 2005 and 2006. Obesity Huma's syndrome On home oxygen therapy 2LPM VIA N/C AT HS PRN Physical debility Poor historian spoke with who is a good historian Secondary hyperparathyroidism Sleep apnea O2 AT NIGHT PRN Surgical History H/O lithotripsy x 2 History of bronchoscopy x3, last 02/10/22 @ [facility] Grade 1 view, MAC 3, ETT 9. History of cardiac cath 2006 PCI of LCx 2007 PCI of LAD 2012 severe [place] vessel dz and an occluded SVG to OM2 graft. All other grafts patent. History of colonoscopy History of coronary artery bypass graft X5 VESSELS AT [facility] 2004 History of esophagogastroduodenoscopy (EGD) History of surgery PROCEDURE LAST [facility] - ? ENDOBRONCHIAL U/S - PT NOT SURE FINDINGS History of total colectomy for [place]'s syndrome History of total hip arthroplasty RIGHT HIP -- WITH MULTIPLE REVISIONS Port-A-Cath in place (07/06/22) Access port placement with use of fluoroscopy. Status post coronary artery bypass grafting "x 5, 2005" Family History Father , Passed age 92 of metastatic prostate cancer No problems noted. Mother , Passed age 87 of chronic problems No problems noted. Brother , Passed age 54 of [place] Heart disease Sister Breast cancer Son No problems noted. Son No problems noted. Daughter No problems noted. Other No family history of adverse response to anesthesia Social History Smoking Status: Former smoker Tobacco Type: Cigarettes Age Started Using Tobacco: 13; Age Quit Using Tobacco: 59; packs per day: 3; Second Hand Exposure: Yes (parents smoked); Hx Alcohol Use: No Hx Substance Use: No Preferred Language: Croatian Communication Ability: Effective Visual Impairment: No Limitations Hearing Ability: Normal Manager Of Sales Required: No Beliefs That Will Affect Care: None marital status: Current Living Situation: Spouse Current Living Situation Comment: Lives with current occupational status: retired 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 How many Children do You have: 3 Feels Safe at Home: Yes Safety Concerns: Feels Safe At This Time Childhood Exposure to Second-Hand Smoke: Yes caffeine: Yes (2-3 cups of coffee/day ) during the past year weight has: remained stable Assistive Devices: Cane, Denture - Upper and Denture - Lower Review of Systems Review of Systems: All systems reviewed & are unremarkable except as noted in HPI & below Constitutional: + fatigue and + anorexia; no fever and no chills Eyes: + discharge (left eye) and + problem reported (blurry vision in left eye for few days) Ear, Nose, Mouth, Throat: no nasal congestion and no sore throat Respiratory: as per Subjective / HPI Cardiovascular: no chest pain, no palpitations and no syncope Gastrointestinal: no abdominal pain, no nausea and no vomiting Genitourinary: no dysuria or no hematuria Musculoskeletal: + neck pain Integumentary: no yellowing of the skin Neurologic: + generalized weakness, + headache(s) and + confusion Physical Exam Constitutional: + obese; no acute distress Eyes: left conjunctival injection with small amount of purulent drainage in lashes, mild pain with EOM on left Otherwise EOMI, pupils responsive to light Neck: trachea midline Respiratory: no respiratory distress and no labored breathing Auscultation: + diminished lung sounds and + crackles (at bases); no wheezes Cardiovascular: Rate/Rhythm: regular rate and regular rhythm Vessels: posterior tibial pulses present and radial pulses present Extremities: + miranda ma (trace bilateral) left chest with port in place Gastrointestinal (Abdomen): Inspection/Auscultation: + abdomen distended (mild) and normal bowel sounds Percussion/Palpation: abdomen soft +ostomy bag with scant brown stool Skin: stasis changes bilateral LE, ecchymosis on UE Neurologic: moves all extremities; no focal motor deficits Cranial Nerves: EOM intact bilaterally, normal facial strength, tongue midline and able to rotate head bilaterally Results & Data Results & Data Vital Signs (Past 12 Hours) Vital Signs Temp Pulse Pulse Resp BP Pulse Ox O2 Del Method 09/05/22 07:15 86 16 95 Room Air 09/05/22 06:31 92 H 09/05/22 06:32 36.9 C 89 18 94 Nasal Cannula 09/05/22 06:28 36.9 C 92 H 22 127/90 94 Nasal Cannula O2 Flow Rate 09/05/22 07:15 09/05/22 06:31 09/05/22 06:32 2 09/05/22 06:28 2 Laboratory Results Laboratory Results - last 24 hr 09/05/22 09/05/22 09/05/22 08:08 08:08 08:08 WBC 13.08 H RBC 3.95 L Hgb 12.3 L Hct 38.0 L MCV 96.2 MCH 31.1 MCHC 32.4 RDW Std Deviation 52.5 H RDW Coeff of Josiah 14.7 H Plt Count 200 MPV 10.0 Immature Gran % (Auto) 0.4 Neut % (Auto) 86.6 Lymph % (Auto) 7.1 [place] % (Auto) 5.6 Eos % (Auto) 0.2 Baso % (Auto) 0.1 Neut # (Auto) 11.34 H Lymph # (Auto) 0.93 L [place] # (Auto) 0.73 H Eos # (Auto) 0.02 Baso # (Auto) 0.01 Immature Gran # (Auto) 0.05 PT 11.3 INR 1.1 APTT 27.1 PTT Ratio 1.0 Sodium 140 Potassium 3.8 Chloride 99 Carbon Dioxide 27 Anion Gap 14 H BUN 77 H Creatinine 1.89 H Est Cr Clr Drug Dosing 38.5 Est GFR ( Amer) 38.8 Est GFR (Non-Af Amer) 33.5 BUN/Creatinine Ratio 40.7 H Glucose 184 H Calcium 9.3 Total Bilirubin 0.8 AST 9 L ALT 8 Alkaline Phosphatase 141 H Total Protein 6.9 Albumin 3.7 Globulin 3.2 Albumin/Globulin Ratio 1.2 Lipase 5 L SARS-CoV-2, RNA, NAAT 09/05/22 08:09 WBC RBC Hgb Hct MCV MCH MCHC RDW Std Deviation RDW Coeff of Josiah Plt Count MPV Immature Gran % (Auto) Neut % (Auto) Lymph % (Auto) [place] % (Auto) Eos % (Auto) Baso % (Auto) Neut # (Auto) Lymph # (Auto) [place] # (Auto) Eos # (Auto) Baso # (Auto) Immature Gran # (Auto) PT INR APTT PTT Ratio Sodium Potassium Chloride Carbon Dioxide Anion Gap BUN Creatinine Est Cr Clr Drug Dosing Est GFR ( Amer) Est GFR (Non-Af Amer) BUN/Creatinine Ratio Glucose Calcium Total Bilirubin AST ALT Alkaline Phosphatase Total Protein Albumin Globulin Albumin/Globulin Ratio Lipase SARS-CoV-2, RNA, NAAT NEGATIVE Diagnostic Findings Chest X-ray - IMPRESSION:1. Stable cardiomegaly. Pulmonary vascular congestion without overt pulmonary edema. 2. Right lower lobe mass, better depicted on prior chest CT. 3. No change in left basilar opacity likely related to a chronic pleural effusion. Supervising Physician Co-Signing Physician Notes Pt is a 76 y/o M with hx of Primary lung ca, CAD s/p CABG, COPD, IDDM, HTN, CKD IV, [place] Syndrome s/p colectomy with end ileostomy, HLD, Barretts esophagus, BPH, DJD, HFpEF, admitted for worsening MARQUIS. MRI Brain on 09/02/22: No evidence of intracranial metastatic disease or acute intracranial abnormality. Finding seen in the setting of normal pressure hydrocephalus. Recommend clinical correlation. Moderate chronic small vessel ischemic disease PE: In mild distress, NC in place HEENT: EOMI, PERRLA, L conjunctival erythema with mild dried drainage Lungs: b/l lower lobe crackles, no wheezing Cardiac: Normal S1, S2, no murmur Abd: ileostomy in place, ND, soft, NT, umbilical hernia MSK: b/l moderate LE pitting edema with chronic skin changes Psych: AAOx3, normal affect Neuro: CN II-XII intact, overall normal motor strength A/P: Intractable MARQUIS: -normal Neuro exam -VSS -Recent MRI brain showed possible normal pressure hydrocephalus -per pt his pain responded well to morphine ---- will do morphine 1mg q6hr prn ---- hold hydrocodone -the description of the MARQUIS does have some characteristic of tension headache ---- due to his age will hold off any starting any muscle relaxant until neurology eval -Repeat MRI Brain wo contract and neurology consult -PT/OT referral Elevated wbc: -no fever or other signs of infection at this time - will get UA and CXR L eye bacterial conjunctivitis: -will start pt on quinolones eye drop Other chronic conditions: Plan as above Agree with A/P by Kassie Delvalle PA-C (3) CHF (congestive heart failure) Heart failure chronicity: acute Heart failure type: unspecified Qualified Code(s): I50.9 - Heart failure, unspecified
[2022-09-05] MEDS ORDERED: CARBOHYDRATES FOR HYPOGLYCEMIA PO PRN (10:52)
[2022-09-05] MEDS ORDERED: GLUCOSE 40% GEL 15 GM TUBE PO PRN (10:52)
[2022-09-05] MEDS ORDERED: GLUCOSE 10 TAB/TUBE PO PRN (10:52)
[2022-09-05] MEDS ORDERED: DEXTROSE 50% 50 ML SYRINGE IV PRN (10:52)
[2022-09-05] MEDS ORDERED: GLUCAGON FOR INJ 1 MG VIAL SQ PRN (10:52)
--- NOTE | 2022-09-05 11:17 | XRay Report ---
XR chest 1V portable CLINICAL HISTORY: Dyspnea on exertion. Lung cancer. COMPARISON STUDY: Chest radiograph August 16, [address] February 10, 2022. FINDINGS: Left subclavian [id number], median sternotomy wires and mediastinal surgical clips are n oted. Right lower lobe mass projects over the right hilum and is better depicted on prior chest CT. T here is no pneumothorax. Cardiomegaly is unchanged. There is pulmonary vascular congestion without ov ert pulmonary edema. Left lower lung opacity could be due to a chronic pleural effusion. This is unch anged. IMPRESSION: 1. Stable cardiomegaly. Pulmonary vascular congestion without overt pulmonary edema. 2. Right lower lobe mass, better depicted on prior chest CT. 3. No change in left basilar opacity likely related to a chronic pleural effusion. ACT 112: Negative or not required by law. Electronically signed by: Srinivasan Jacobs M.D. 09/05/2022 11:15 AM
[2022-09-05] MEDS ORDERED: ALBUTEROL 0.083% NEBU SOLN 3 ML VIAL INH PRN (11:18)
[2022-09-05] MEDS ORDERED: ALBUTEROL HFA 8 GM INHALER INH PRN (11:18)
[2022-09-05] MEDS ORDERED: hydrOXYzine HCl 25 MG TAB PO PRN (11:18)
[2022-09-05] MEDS ORDERED: ALBUT/IPRATROP 3MG/0.5MG NEB 3 ML VIAL INH PRN (11:18)
[2022-09-05] MEDS ORDERED: PROMETHAZINE HCL 25 MG TAB PO PRN (11:18)
[2022-09-05] MEDS ORDERED: LOPERAMIDE HCL 2 MG CAP PO PRN (11:26)
[2022-09-05] MEDS: METOPROLOL SUCC 50MG EXT REL TAB PO SCH (12:09)
[2022-09-05] MEDS: INSULIN ASPART PER UNIT CHARGE SC SCH ×3 (12:59→21:10)
[2022-09-05] MEDS: MoRPHine SULFATE 2 MG/ML CARP IV PRN ×2 (13:04→21:10)
--- NOTE | 2022-09-05 13:06 | Neurology Consultation ---
Date of Consultation September 05, 2022 Assessment & Plan (1) Headache: (2) Stiff neck: (3) Cervicalgia: (4) Hydrocephalus ex vacuo: (5) Cerebrovascular disease: Plan 76-year-old male with recurrent, now persistent left frontal headache, radiating from the occipital region, and occurring with associated neck stiffness and cervicalgia, in the context of metastatic lung cancer, poor tolerance to chemotherapy, recent hospitalization for COPD and congestive heart failure, no recent fevers, no current leukocytosis, no delirium, and recent outpatient MRI at [facility] revealing hydrocephalus ex vacuo and chronic cerebrovascular disease. Element of NPH not excluded. Notably, this recent outpatient MRI does not appear to be significantly different compared with the previous MRI done at [facility] on July 12, [address] of the head done at [facility] on September 03, 2022 was negative for hemorrhage or acute process at that time as well. It is difficult to clinically evaluate this patient for possible normal pressure hydrocephalus at this time as he is quite uncomfortable, with neck stiffness, cervicalgia, and headache. His gait has been apparently declining and he uses a walker at baseline. In any event, normal pressure hydrocephalus does not typically present with headache. If he does have an element of NPH, I do not think he would be a candidate for PAYROLL AUDITOR shunting in light of his history of metastatic lung cancer. I am more concerned, however, regarding his considerable neck stiffness and pain with associated left frontal headache that radiates from the cervical region forward. He may have a persistent cervicogenic headache. In light of his history of metastatic lung cancer, metastatic disease to the spinal column needs to be considered. Furthermore, meningitis cannot be excluded in spite of lack of fever or significant leukocytosis. I agree that he will need additional imaging evaluation. I would prefer MRI of the brain and cervical spine, both with and without gadolinium enhancement. His renal function may be adequate for gadolinium, would double check with radiology as well. If MRI cannot be done this afternoon, would obtain a noncontrast CT of the head and CT of the cervical spine to reevaluate for intracranial hemorrhage and exclude acute cervical spine process. Patient will also need a lumbar puncture completed under fluoroscopy to exclude meningoencephalitis. Given patient's symptoms have been present for the past week and occur without fever, leukocytosis, or delirium, I think meningitis or encephalitis are probably unlikely and initiating broad-spectrum antimicrobial/antiviral therapy is probably not necessary at this time. However, if patient's clinical status were to significantly deteriorate, would need to recommend broad-spectrum coverage as above. For symptom management, could try a muscle relaxant such as cyclobenzaprine, baclofen, or tizanidine. Could also try adding gabapentin starting with 200 mg twice daily and uptitrating depending on response and tolerability. Furthermore, depending on results of above imaging evaluation, it would not be unreasonable to consider consultation with pain management. If he does have cervicogenic headache or occipital neuralgia, may benefit from either a cervical or facet nerve block. discussed with Kassie Delvalle PA-C History of Present Illness Reason for Consultation: Severe headache, question NPH on outpatient MRI Requesting Physician: Kassie Delvalle PA-C Attending Physician: Shravan Lowry MD History of Present Illness The patient is a 76-year-old male with a history of metastatic primary lung cancer, originally diagnosed in June 2020, but with evidence of recurrent metastatic disease and intolerance to chemotherapy recently. He has followed with the [facility] cancer care partnership. He was admitted to [facility] last month, August 16, 2022 for increasing shortness of breath. He was seen by cardiology and pulmonology and eventually discharged on August 19, 2022. Principal diagnosis for that reason admission was COPD with emphysema, congestive heart failure, advanced COPD. Past medical history is also notable for type 2 diabetes mellitus, gout, hyperparathyroidism, chronic kidney disease, anemia, history of coronary artery disease, status post CABG, hypertension, Anthony's esophagus, Casselton syndrome, BPH, venous stasis dermatitis of both lower limbs, history of ileostomy, generalized anxiety disorder. He had an outpatient gadolinium-enhanced MRI at [facility] on September 02, 2022 which was negative for acute abnormality or evidence of intracranial metastatic disease. I did independently review these images. The study reveals ventricular enlargement that is perhaps somewhat out of proportion to the degree of cortical atrophy. There is also extensive chronic T2/FLAIR hyperintensity throughout the cerebral white matter. The results were felt to be potentially consistent with normal pressure hydrocephalus by the interpreting [facility] radiologist. I did independently review these images and compared them with a brain MRI done at [facility] July 12, 2022 for headache. There does not appear to be any significant change per my review. Both studies appear to depict hydrocephalus ex vacuo and fairly extensive chronic small vessel ischemic disease. I also reviewed the images pertaining to a CT head of the head done at [facility] on September 03, 2022, in the context of an emergency department encounter at that time for headache. Again noted is ventricular dilatation due to atrophy, no hemorrhage or acute process. The patient does appear to be uncomfortable, he has a stiff neck and prefers to keep his head and neck in a forward flexed position. I did inquire about his headache which she localizes to just above the left eye, radiating from the occipital region, and occurring with associated cervicalgia. His headache is worse with attempts at head and neck movement. He does admit that he has been having bothersome headache for the past few months although much worse since his discharge from the [facility] on August 19, 2022. He denies any fevers or chills recently. He denies any change in vision or hearing. He typically ambulates with a walker although has been feeling significantly worse over the past week. He did present to the emergency department 2 days ago, on September 03, 2022 for headache and I had reviewed his case with Dr. Dunlap, the ED physician at that time, and had reviewed his most recent [facility] MRI, report, images, and did compare them with his previous MRI done at [facility] in June. He was discharged from the emergency department to home at that time given lack of evidence of any significant acute process. The patient presented again to the emergency department early this morning, continuing to complain of headache. There has been some concern regarding the recent outpatient MRI read from [facility] suggesting normal pressure hydrocephalus. (Of course, this condition does not typically present with headache.) Furthermore, his imaging is not suggestive of acute hydrocephalus, hemorrhage, or metastatic disease. As above, he complains of bothersome persistent headache, primarily frontal, above the left eye, radiating from the occipital region, and worse with head and neck movement. No fever or chills. No other focal neurologic symptoms. Allergies Allergy/AdvReac Type Severity Reaction Status Date / Time No Known Allergies Allergy U Verified 08/05/22 16:20 Home Medications Medication Instructions Recorded Confirmed Type albuterol sulfate 2.5 mg/3 mL 2.5 mg inhalation Q4 PRN cough,SOB 03/08/18 09/05/22 History (0.083 %) solution for nebulization allopurinol 300 mg tablet 300 mg PO QAM 03/08/18 09/05/22 History aspirin 81 mg tablet,delayed 81 mg PO QAM 03/08/18 09/05/22 History release (Dane Low Dose Aspirin) atorvastatin 40 mg tablet 40 mg PO HS 03/08/18 09/05/22 History furosemide 80 mg tablet 80 mg PO BID 03/08/18 09/05/22 History insulin aspart U-100 100 unit/mL 1 dose subcut BID 03/08/18 09/05/22 History (3 mL) subcutaneous pen (Novolog FlexPen U-100 Insulin aspart) insulin glargine 100 unit/mL 40 unit subcut HS 03/08/18 09/05/22 History subcutaneous solution (Lantus U-100 Insulin) metoprolol succinate 50 mg 50 mg PO UD 03/08/18 09/05/22 History tablet,extended release 24 hr omeprazole 40 mg capsule,delayed 40 mg PO QAM 03/08/18 09/05/22 History release spironolactone 25 mg tablet 12.5 mg PO QAM #0 tabs 01/27/20 09/05/22 Rx cholecalciferol (vitamin D3) 50 50 mcg PO QAM 12/04/20 09/05/22 History mcg (2,000 unit) capsule famotidine 20 mg tablet 20 mg PO HS 12/04/20 09/05/22 History albuterol sulfate 90 mcg/actuation 2 puff inhalation QID PRN 02/12/21 09/05/22 History aerosol inhaler (ProAir HFA) Shortness Of Breath metolazone 5 mg tablet 5 mg PO WK 02/12/21 09/05/22 History promethazine 25 mg tablet 25 mg PO Q6H PRN NAUSEA/VOMITING 02/12/21 09/05/22 History finasteride 5 mg tablet 5 mg PO QAM #90 tabs 12/01/21 09/05/22 Rx Portable Oxygen #1 ea 01/29/22 09/05/22 Rx sertraline 50 mg tablet 50 mg PO QAM 02/03/22 09/05/22 History guaifenesin 600 mg tablet, 600 mg PO AMHS 08/16/22 09/05/22 History extended release 12 hr (Mucinex) hydroxyzine HCl 25 mg tablet 25 mg PO TID PRN Anxiety 08/16/22 09/05/22 History ipratropium 0.5 mg-albuterol 3 mg 3 ml inhalation Q4H PRN cough,SOB 08/16/22 09/05/22 History (2.5 mg base)/3 mL nebulization soln loperamide 2 mg tablet 2 mg PO QID PRN Diarrhea 08/16/22 09/05/22 History fluticasone fur. 100 mcg-umeclid 1 inh inhalation DAILY #3 Inhalers 08/18/22 09/05/22 Rx 62.5 mcg-vilant 25 mcg inhalat.powder (Trelegy Ellipta) Patient History Medical History Advanced COPD Anemia HX Anxiety Arthritis NECK Back problem HX INJECTIONS, POSSIBLE NEED FOR SX Anthony's esophagus BPH (benign prostatic hyperplasia) CAD (coronary artery disease) Last cardiac cath 08/09/2011 and demonstrated severe north fork vessel disease and an occluded SVG to the OM2. All other grafts noted to be patent at that time. 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 Smith Congestive heart failure chronic combined systolic and diastolic EF 45% 2011 Diabetes mellitus, type 2 IDDM Dyslipidemia GERD (gastroesophageal reflux disease) Gout HX History of colon polyps History of radiation therapy 5 TX A FEW YRS AGO FOR LUNG NODULES..."MADE IT GROW MORE" History of renal calculi HTN (hypertension) Ileostomy, has currently PER PT: SWELLED UP AROUND WHERE BAG HOOKS UP "RUPTURED" NO PROBLEMS WITH FUNCTIONING , DR AWARE...POSSIBLE NEED FOR UPCOMING SX Lung cancer (07/23/20) Right Lower Lobe - Adenocarcinoma Lung nodules ? DETAILS/REASON FOR UPCOMING PROCEDURE Metastatic primary lung cancer MRSA (methicillin resistant Staphylococcus aureus) Per infection control, 02/2018: "Patient has a history of MRSA in a wound and a nasal screen in 2014. Patient requires contact precautions." Myocardial Infarction 2005 - CABG X5 VESSELS. Subsequent caths with stenting 2005 and 2006. Obesity Casselton's syndrome On home oxygen therapy 2LPM VIA N/C AT HS PRN Physical debility Poor historian spoke with who is a good historian Secondary hyperparathyroidism Sleep apnea O2 AT NIGHT PRN Surgical History H/O lithotripsy x 2 History of bronchoscopy x3, last 02/10/22 @ [facility] Grade 1 view, MAC 3, ETT 9. History of cardiac cath 2006 PCI of LCx 2006 PCI of LAD 2012 severe north fork vessel dz and an occluded SVG to OM2 graft. All other grafts patent. History of colonoscopy History of coronary artery bypass graft X5 VESSELS AT [facility] 2004 History of esophagogastroduodenoscopy (EGD) History of surgery PROCEDURE LAST YR [facility] - ? ENDOBRONCHIAL U/S - PT NOT SURE FINDINGS History of total colectomy for Casselton's syndrome History of total hip arthroplasty RIGHT HIP -- WITH MULTIPLE REVISIONS Port-A-Cath in place (07/06/22) Access port placement with use of fluoroscopy. Status post coronary artery bypass grafting "x 5, 2005" Family History Father , Passed age 92 of metastatic prostate cancer No problems noted. Mother , Passed age 87 of chronic problems No problems noted. Brother , Passed age 54 of [place] Heart disease Sister Breast cancer Son No problems noted. Son No problems noted. Daughter No problems noted. 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 Required: No Beliefs That Will Affect Care: None marital status: Current Living Situation: Spouse Current Living Situation Comment: Lives with current occupational status: retired current occupation: Retired [employer] How many Children do You have: 3 Feels Safe at Home: Yes Safety Concerns: Feels Safe At This Time Childhood Exposure to Second-Hand Smoke: Yes caffeine: Yes (2-3 cups of coffee/day ) during the past year weight has: remained stable Assistive Devices: Cane, Denture - Upper and Denture - Lower Review of Systems Constitutional: no fever and no chills Eyes: no blind spots and no diplopia Ear, Nose, Mouth, Throat: no ear pain and no hearing loss Respiratory: + dyspnea; no cough Cardiovascular: no chest pain and no palpitations Gastrointestinal: no nausea and no vomiting Genitourinary: no dysuria Integumentary: no rash and no lesions Neurologic: as per Subjective / HPI, + gait abnormality, + unsteadiness, + localized weakness, + tremor(s) and + headache(s) Psychiatric: + anxiety; no depression Hematologic / Lymphatic: no easy bleeding and no easy bruising Exam (Neuro) Constitutional: well developed, well nourished and + acute distress (Appears uncomfortable, keeps his head flexed off the pillow) Eyes: normal visual bradley by confrontation, PERRL and EOM intact bilaterally; no papilledema Cardiovascular: Vessels: no carotid bruit Neurologic: Oriented to:: Person and Place; negative Time Memory: Remote Intact; negative Short Term Intact Attention: Span Intact; negative Concentration Intact Speech Fluency: negative Dysarthria or Dysfluency Fund of Knowledge: Current Events, Past History and Vocabulary Cranial Nerves: Normal II, III, IV, , V, VII, VIII, IX, X, XI and XII Motor Strength: Normal Lower Extremities and Normal Upper Extremities Motor Tone: Normal Lower Extremities and Normal Upper Extremities Muscle Bulk/Involuntary Movements: Action Tremor; negative Pill Rolling Tremor Sensation: Light Touch Intact; negative Pain/Temperature Intact, Vibration Intact or Proprioception Intact Coordination: Heel-Bray Abnormal; negative Dysdiadochokinesia or Finger-Nose Abnormal Deep Tendon Reflexes: Rt Triceps: 1+, Lt Triceps: 1+, Rt Biceps: 1+, Lt Biceps: 1+, Rt Brachioradialis: 1+, Lt Brachioradialis: 1+, Rt Patellar: 1+, Lt Patellar: 1+, Rt Ankle: 1+ and Lt Ankle: 1+ Special Tests: negative Babinski Present Details: Gait cannot be tested. Patient does have neck stiffness and exhibits pain with attempts at gently moving his head and neck manually. I am unable to elicit a Kernig or Brudzinski sign. Results & Data Vital Signs (Past 12 Hours) Vital Signs Temp Pulse Pulse Resp BP BP Pulse Ox 09/05/22 11:24 09/05/22 11:24 36.6 C 97 H 20 169/77 H 96 09/05/22 07:15 86 16 95 09/05/22 06:31 92 H 09/05/22 06:32 36.9 C 89 18 94 09/05/22 06:28 36.9 C 92 H 22 127/90 94 O2 Del Method O2 Flow Rate 09/05/22 11:24 Nasal Cannula 2 09/05/22 11:24 Nasal Cannula 2 09/05/22 07:15 Room Air 09/05/22 06:31 09/05/22 06:32 Nasal Cannula 2 09/05/22 06:28 Nasal Cannula 2 Laboratory Results WBC 13.08, hemoglobin 12.3, hematocrit 38.0, platelet count 200, sodium 140, potassium 3.8, BUN 77, creatinine 1.89, glucose 184, calcium 9.3, AST 9, ALT 8, SARS-CoV-2 negative Diagnostic Findings I independently reviewed patient's brain MRI completed at [facility] July 12, 2022 and his more recent CT of the head completed September 03, 2022 as well as a brain MRI completed at [facility] on September 02, 2022. Results are as described in the history of present illness, and again, appear to review generalized atrophy, hydrocephalus ex vacuo, and chronic microvascular ischemic disease. An element of normal pressure hydrocephalus may not be completely excluded. An echocardiogram completed August 17, 2022 revealed moderate concentric LVH, normal left ventricular wall motion, EF 65 to 70%, severely dilated left atrium, right ventricular systolic pressure moderately elevated, no ASD. PG Care Time/CCT Total # of Minutes Spent Total Time Spent with Patient: Total time spent is greater than 50% in coordination of care (as documented) at patient's floor/unit and/or counseling patient: 100 minutes Coding Level of Care Code 72988 INT INP/OBS CARE 3/75MIN Diagnoses Headache R51.9 Stiff neck M43.6 Cervicalgia M54.2 Hydrocephalus ex vacuo G91.8 Cerebrovascular disease I67.9
[2022-09-05] MEDS: OFLOXACIN 0.3% 75 DROPS/5 ML BTL OPL SCH ×3 (13:10→21:14)
[2022-09-05] MEDS ORDERED: LORazepam 1 MG TAB PO STA (13:16)
[2022-09-05] MEDS ORDERED: SODIUM CHLORIDE 0.9% 500 ML IV SCH (13:30)
[2022-09-05 13:43] LABS: Appearance Urine Clear (Clear); Bilirubin Urine Negative (Negative); Blood Urine 1+ (Negative); Color Urine Yellow; Glucose Urine UA Negative (Negative); Ketones Urine Negative (Negative); Leukocyte Esterase Urine 2+ (Negative); Nitrite Urine Negative (Negative); Protein Urine Negative (Negative); Urobilinogen Urine Negative (Negative)
[2022-09-05 14:03] LABS: Bacteria Urine Negative (Negative); Epithelial Cell Urine 0-5 /lpf (0-5); Hyaline Casts Urine 0-5 /lpf (0-5); RBC Urine 0-4 /hpf (0-4); WBC Urine >30 /hpf (0-5)
[2022-09-05] MEDS: FUROSEMIDE 80 MG TAB PO SCH (17:14)
[2022-09-05] MEDS ORDERED: Nursing to Pharmacy Communication SCH (17:30)
[2022-09-05] MEDS: LANTUS PER UNIT CHARGE SQ SCH (21:11)
[2022-09-05] MEDS: ATORVASTATIN 40 MG TAB PO SCH (21:11)
[2022-09-05] MEDS: FAMOTIDINE 20 MG TAB PO SCH (21:12)
[2022-09-05] MEDS: guaiFENesin 600 MG TABCR PO SCH (21:12)
[2022-09-05] MEDS: HEPARIN SOD 5,000 UNIT/0.5 ML VIAL SQ SCH (21:13)
[2022-09-05] MEDS: METOPROLOL SUCC 25MG EXT REL TAB PO SCH (21:13)
[2022-09-05] MEDS: HYDROmorphone INJ 0.5 MG/0.5 ML SYR IV PRN (22:23)
[2022-09-06] MEDS: oxyCODONE HCL IR 5 MG TAB (IMMEDIATE RELEASE) PO PRN ×3 (02:02→17:04)
[2022-09-06] MEDS ORDERED: LORazepam 2 MG/1 ML VIAL IV PRN (03:56)
[2022-09-06] MEDS ORDERED: LORazepam 2 MG/1 ML VIAL IV STA (03:58)
[2022-09-06] MEDS: SERTRALINE HCL 50 MG TABLET PO SCH (08:41)
[2022-09-06] MEDS: allopurinoL 300 MG TAB PO SCH (08:41)
[2022-09-06] MEDS: SPIRONOLACTONE 12.5 MG TAB PO SCH (08:42)
[2022-09-06] MEDS: FUROSEMIDE 80 MG TAB PO SCH ×2 (08:42→17:06)
[2022-09-06] MEDS: ASPIRIN 81 MG ECTAB PO SCH (08:42)
[2022-09-06] MEDS: CHOLECALCIFEROL 1,000 UNITS 25 MCG TAB PO SCH (08:42)
[2022-09-06] MEDS: FINASTERIDE 5 MG TAB PO SCH (08:42)
[2022-09-06] MEDS: guaiFENesin 600 MG TABCR PO SCH ×2 (08:42→21:14)
[2022-09-06] MEDS: PANTOprazole 40 MG TAB PO SCH (08:42)
[2022-09-06] MEDS: HEPARIN SOD 5,000 UNIT/0.5 ML VIAL SQ SCH ×2 (08:43→21:14)
[2022-09-06] MEDS: OFLOXACIN 0.3% 75 DROPS/5 ML BTL OPL SCH ×4 (08:44→21:15)
[2022-09-06 08:46] LABS: Basophils # (auto) 0.01 K/uL (0-0.2); Basophils % (auto) 0.1 %; Eosinophils # (auto) 0.09 K/uL (0-0.50); Eosinophils % (auto) 0.8 %; Hematocrit (blood only) 37.9 % (42.0-52.0); Hemoglobin 12.2 g/dl (14.0-18.0); Immature Granulocytes # (auto) 0.04 K/uL (0.01-0.20); Immature Granulocytes % (auto) 0.3 %; Lymphocytes # (auto) 1.08 K/uL (1.2-3.4); Lymphocytes % (auto) 9.1 %; Mean Corpuscular Hemoglobin 30.8 pg (25.0-34.0); Mean Corpuscular Hgb Conc 32.2 g/dL (32.0-36.0); Mean Corpuscular Volume 95.7 fL (80.0-100.0); Monocytes # (auto) 0.64 K/uL (0.11-0.59); Monocytes % (auto) 5.4 %; Neutrophils # (auto) 9.96 K/uL (1.40-6.50); Neutrophils % (auto) 84.3 %; Platelet Count 202 K/uL (130-400); RDW Coefficient of Variation 14.7 % (11.5-14.5); RDW Standard Deviation 52.6 fL (36.4-46.3); Red Blood Count 3.96 M/uL (4.70-6.10); White Blood Count 11.82 K/ul (4.8-10.8)
[2022-09-06] MEDS: METOPROLOL SUCC 50MG EXT REL TAB PO SCH (08:49)
[2022-09-06] MEDS ORDERED: NON-FORMULARY MEDICATION (Fluticasone-Umeclidin-Vilanter [Trelegy Ellipta] 100-62.5-25 mcg INH SCH (09:00)
[2022-09-06 09:25] LABS: BUN Creatinine Ratio 41.5 (10-20); Calcium 9.4 mg/dl (8.6-10.3); Est GFR (African American) 39.1 ml/min; Est GFR (Non-African American) 33.7 ml/min; Potassium 3.6 mmol/L (3.5-5.1)
[2022-09-06] MEDS: INSULIN ASPART PER UNIT CHARGE SC SCH ×4 (09:43→21:06)
[2022-09-06] MEDS: LANTUS PER UNIT CHARGE SQ SCH ×2 (09:44→21:07)
[2022-09-06] MEDS: FLUTICASONE/VILANTEROL 100/25MCG 14 PUFFS/INHALER INH SCH (12:36)
[2022-09-06] MEDS: UMECLIDINIUM BROMIDE 62.5MCG/BLISTER 7 PUFFS/INHALER INH SCH (12:36)
[2022-09-06] MEDS: CYCLOBENZAPRINE HCL 5 MG TAB PO SCH ×2 (13:40→22:23)
[2022-09-06] MEDS: GABAPENTIN 100 MG CAP PO SCH ×2 (13:41→22:23)
[2022-09-06] MEDS: AMPICILLIN 2,000 MG in SODIUM CHLOR 0.9% AD-VAN 100 ML IV SCH (14:32)
--- NOTE | 2022-09-06 14:41 | CT Scan Report ---
CT head/brain wo con CLINICAL HISTORY: 76 years-old Male with headache. Acute headache with neck tenderness TECHNIQUE: Multiple axial CT images of the head were obtained without contrast. A dose lowering tech nique was utilized adhering to the principles of ALARA. CT DOSE: 432.06 mGycm COMPARISON: None. FINDINGS: Limited exam secondary to positioning. The patient did not cooperate for the study. Unchanged ventric ulomegaly with white matter hypodensities suggestive of probable chronic microvascular ischemic disea se. No definite acute intracranial hemorrhage, midline shift or abnormal extra-axial collection ident ified. The calvarium is intact. The paranasal sinuses, mastoid air cells, and middle ear cavities are clear . IMPRESSION: This study is nearly nondiagnostic secondary to patient positioning. No acute intracrani al abnormality identified on this markedly limited study. Consider repeat imaging if there is further clinical merit. ACT 112: Negative or not required by law. The above report was generated using voice recognition software. It may contain grammatical, syntax o r spelling errors. Electronically signed by: Giovanni Montoya M.D. 09/06/2022 2:40 PM
--- NOTE | 2022-09-06 14:41 | CT Scan Report ---
CT SCAN OF THE CERVICAL SPINE CLINICAL HISTORY: Neck pain. Cervicalgia. COMPARISON STUDY: CT of the neck dated 04/24/2016. TECHNIQUE: CT scan of the cervical spine is performed from the skull base to the upper thoracic spine . Images are reviewed in the axial, sagittal, and coronal planes. IV contrast was not administered fo r this examination. A dose lowering technique was utilized adhering to the principles of ALARA. The examination is degraded by inability to properly position the patient within the CT gantry. CT DOSE: 879.49 mGycm FINDINGS: Skeletal structures: The skeletal structures are osteopenic. There is no evidence of fracture or subl uxation involving the cervical spine. Vertebral body height is maintained. There is minimal anterolis thesis at C4-C5. Alignment is otherwise preserved. Small anterior osteophytes are seen throughout. Th ere is reversal of the cervical lordosis. The odontoid process and lateral masses are intact. The malia antoaxial articulation is preserved noting mild productive degenerative change. The spinous processes appear intact. There is mild multilevel facet arthropathy. Intervertebral discs: There is moderate disc space narrowing at C3-C4. Mild disc space narrowing is s een at the remaining cervical levels. Central canal: Grossly patent. Soft tissues: The prevertebral and paraspinous soft tissues are within normal limits. There is athero sclerotic calcification of the carotid bulbs. A central venous catheter is noted at the left thoracic inlet. Calvarium: The visualized calvarium at the skull base appears intact. Brain parenchyma: Partially visualized brain parenchyma at the skull base is within normal limits. Sinuses and mastoids: The visualized paranasal sinuses are clear. The mastoid air cells are well pneu matized. Lung apices: Clear as visualized. IMPRESSION: 1. There is no evidence of fracture or subluxation involving the cervical spine. 2. Osteopenia and spondylotic change as above. ACT 112: Negative or not required by law. Electronically signed by: Reggie Stone M.D. 09/06/2022 2:40 PM
[2022-09-06] MEDS: HEPARIN 100 UNIT/ML 5ML FLUSH FLUSH PRN (15:06)
--- NOTE | 2022-09-06 16:01 | Hospitalist Progress Note ---
Date of Service September 06, 2022 Assessment & Plan (1) Headache: Plan: Patient is a 76 yr male with H/O metastatic lung cancer, COPD, combined systolic and diastolic CHF, insulin-requiring DM, and CAD who presented to the ED this morning with ongoing and worsening of headache over the last 10 days., now becoming so severe as to interfere with ADLs. Intractable headache Cervicalgia with Neck Stiffness DD: NPH, Meningitis/Encephalitis, cervicogenic headache or occipital neuralgia --Outpatient MRI done on 09/02/22 showed No evidence of intracranial metastatic disease or acute intracranial abnormality. Finding seen in the setting of normal pressure hydrocephalus. Recommend clinical correlation. Moderate chronic small vessel ischemic disease. --Head CT:This study is nearly nondiagnostic secondary to patient positioning. No acute intracranial abnormality identified on this markedly limited study. Consider repeat imaging if there is further clinical merit. --Neck CT:There is no evidence of fracture or subluxation involving the cervical spine. Osteopenia and spondylotic change as above. --Could not obtain repeat MRI as patient refused/secondary to pain --Will obtain Lumbar Puncture with IR help and check CSF studies to rule out infection/NPH etc --Hold antibiotics for now -- Appreciate neurology input Consulted orthopedics Started on cyclobenzaprine, gabapentin Pain control PT/OT as able Further management based on CSF studies/opening pressure Possible UTI/Conization Urine culture growing probable Enterococcus Will start on ampicillin after lumbar puncture Asymptomatic (2) Left conjunctivitis: Plan: Ofloxacin drops x 7-10 days (3) CHF (congestive heart failure): Plan: Chronic diastolic heart failure CXR:. Stable cardiomegaly. Pulmonary vascular congestion without overt pulmonary edema. Right lower lobe mass, better depicted on prior chest CT. No change in left basilar opacity likely related to a chronic pleural effusion. Continue home medications Monitor volume status (4) CKD (chronic kidney disease): Plan: Creatinine baseline ~ 2 Monitor renal function Avoid nephrotoxic agents as able (5) COPD with emphysema: Plan: Continue inhalers No signs of acute exacerbation (6) Pulmonary hypertension: (7) Metastatic primary lung cancer: Plan: Follows with Dr. Bravo - received chemo x 1 but didn't tolerate, not planning for additonal chemo at this point (8) Sleep apnea: Plan: Wears O2 at night - 2-2.5 L (9) Diabetes mellitus, type 2: Plan: Continue basal insulin with sliding scale BSG ACHS Diabetic diet Plan Continue other home medications as appropriate DVT Px: Heparin SQ Code Status: Full code Admission and Anticipated Discharge Date Admission Date: September 06, 2022 Subjective Patient is seen and examined at bedside Patient complains of ongoing headache predominantly occipital region, neck pain associated with stiffness. He refused to obtain MRI due to neck pain/position Patient denies any chest pain, dyspnea, dizziness, nausea, abdominal pain No other complaints Review of Systems Review of Systems: All systems reviewed & are unremarkable except as noted in Subjective Physical Exam Physical Exam: Physical Exam: Vitals signs as noted above General Appearance:Moderately built and nourished, no apparent distress Head: normocephalic, Atraumatic Eyes: normal inspection, EOMI Neck: supple, Trachea midline, +Stiffness, decreased ROMdue to pain Respiratory/Chest: Decreased breath sounds, basal crackles, No accessory muscle use Cardiovascular: S1, S2, No murmur Abdomen/GI:Soft, Non tender, Bowel sounds present Extremities/Musculoskeletal:normal inspection, Trace edema Neurologic/Psych:AAOX3, grossly no focal neurological deficits Skin: normal color, warm Results & Data Results & Data Vital Signs (Past 12 Hours) Vital Signs Temp Pulse Resp BP Pulse Ox O2 Del Method 09/06/22 14:35 37.0 C 84 18 136/73 92 Room Air 09/06/22 07:29 36.6 C 82 18 161/86 H 99 Room Air Laboratory Results Short CBC 09/06/22 Range/Units 08:10 WBC 11.82 H (4.8-10.8) K/ul Hgb 12.2 L (14.0-18.0) g/dl Hct 37.9 L (42.0-52.0) % Plt Count 202 (130-400) K/uL BMP 09/06/22 08:10 Sodium 142 Potassium 3.6 Chloride 102 Carbon Dioxide 30 BUN 78 H Creatinine 1.88 H Glucose 200 H Calcium 9.4 (3) CHF (congestive heart failure) Heart failure chronicity: acute Heart failure type: unspecified Qualified Code(s): I50.9 - Heart failure, unspecified
[2022-09-06] MEDS: METOPROLOL SUCC 25MG EXT REL TAB PO SCH (21:14)
[2022-09-06] MEDS: FAMOTIDINE 20 MG TAB PO SCH (21:15)
[2022-09-06] MEDS: ATORVASTATIN 40 MG TAB PO SCH (21:15)
[2022-09-07] MEDS: HEPARIN 100 UNIT/ML 5ML FLUSH FLUSH PRN (07:38)
[2022-09-07 07:51] LABS: Hematocrit (blood only) 39.3 % (42.0-52.0); Hemoglobin 12.9 g/dl (14.0-18.0); Mean Corpuscular Hemoglobin 31.3 pg (25.0-34.0); Mean Corpuscular Hgb Conc 32.8 g/dL (32.0-36.0); Mean Corpuscular Volume 95.4 fL (80.0-100.0); Mean Platelet Volume 10.4 fL (9.4-12.4); Platelet Count 205 K/uL (130-400); RDW Coefficient of Variation 14.8 % (11.5-14.5); RDW Standard Deviation 51.9 fL (36.4-46.3); Red Blood Count 4.12 M/uL (4.70-6.10); White Blood Count 12.48 K/ul (4.8-10.8)
[2022-09-07 08:13] LABS: BUN Creatinine Ratio 39.2 (10-20); Calcium 9.6 mg/dl (8.6-10.3); Creatinine Clr Calc Pharmacy 35.9 ml/min; Est GFR (African American) 36.5 ml/min; Est GFR (Non-African American) 31.5 ml/min; Magnesium 2.1 mg/dl (1.7-2.4); Potassium 3.8 mmol/L (3.5-5.1)
--- NOTE | 2022-09-07 08:26 | Orthopedic Consultation ---
Date of Consultation September 07, 2022 Assessment & Plan (1) Cervicalgia: CAT scan available for review does demonstrate anterolisthesis at C4-C5 and moderate spondylosis. Not appreciate any subluxation of his joints. Ultimately an MRI of the cervical spine may be warranted when he is able to undergo the chani dy. Interventional pain management may be warranted for their assistance in his marked discomfort. At this time I have no explanation for his current presentation. History of Present Illness Reason for Consultation: Severe cervicalgia Attending Physician: Lukas Hinojosa MD History of Present Illness This is a 76-year-old male with significant medical history including metastatic lung cancer that presents with severe cervicalgia. He states the symptoms have been present for approximate 10 days. Denies any precipitating, fall or event. Most comfortable with his head flexed forward. He is markedly limited with cervical extension secondary to severity of pain. His pain is in the right occipital cervical region. He denies any numbness and tingling in the arms or legs. Denies any motor deficits. Allergies Allergy/AdvReac Type Severity Reaction Status Date / Time No Known Allergies Allergy U Verified 08/05/22 16:20 Home Medications Medication Instructions Recorded Confirmed Type albuterol sulfate 2.5 mg/3 mL 2.5 mg inhalation Q4 PRN cough,SOB 03/08/18 09/05/22 History (0.083 %) solution for nebulization allopurinol 300 mg tablet 300 mg PO QAM 03/08/18 09/05/22 History aspirin 81 mg tablet,delayed 81 mg PO QAM 03/08/18 09/05/22 History release (Dane Low Dose Aspirin) atorvastatin 40 mg tablet 40 mg PO HS 03/08/18 09/05/22 History furosemide 80 mg tablet 80 mg PO BID 03/08/18 09/05/22 History insulin aspart U-100 100 unit/mL 1 dose subcut BID 03/08/18 09/05/22 History (3 mL) subcutaneous pen (Novolog FlexPen U-100 Insulin aspart) insulin glargine 100 unit/mL 40 unit subcut HS 03/08/18 09/05/22 History subcutaneous solution (Lantus U-100 Insulin) metoprolol succinate 50 mg 50 mg PO UD 03/08/18 09/05/22 History tablet,extended release 24 hr omeprazole 40 mg capsule,delayed 40 mg PO QAM 03/08/18 09/05/22 History release spironolactone 25 mg tablet 12.5 mg PO QAM #0 tabs 01/27/20 09/05/22 Rx cholecalciferol (vitamin D3) 50 50 mcg PO QAM 12/04/20 09/05/22 History mcg (2,000 unit) capsule famotidine 20 mg tablet 20 mg PO HS 12/04/20 09/05/22 History albuterol sulfate 90 mcg/actuation 2 puff inhalation QID PRN 02/12/21 09/05/22 History aerosol inhaler (ProAir HFA) Shortness Of Breath metolazone 5 mg tablet 5 mg PO WK 02/12/21 09/05/22 History promethazine 25 mg tablet 25 mg PO Q6H PRN NAUSEA/VOMITING 02/12/21 09/05/22 History finasteride 5 mg tablet 5 mg PO QAM #90 tabs 12/01/21 09/05/22 Rx Portable Oxygen #1 ea 01/29/22 09/05/22 Rx sertraline 50 mg tablet 50 mg PO QAM 02/03/22 09/05/22 History guaifenesin 600 mg tablet, 600 mg PO AMHS 08/16/22 09/05/22 History extended release 12 hr (Mucinex) hydroxyzine HCl 25 mg tablet 25 mg PO TID PRN Anxiety 08/16/22 09/05/22 History ipratropium 0.5 mg-albuterol 3 mg 3 ml inhalation Q4H PRN cough,SOB 08/16/22 0 09/05/22 History (2.5 mg base)/3 mL nebulization soln loperamide 2 mg tablet 2 mg PO QID PRN Diarrhea 08/16/22 09/05/22 History fluticasone fur. 100 mcg-umeclid 1 inh inhalation DAILY #3 Inhalers 08/18/22 09/05/22 Rx 62.5 mcg-vilant 25 mcg inhalat.powder (Trelegy Ellipta) Patient History Medical History Advanced COPD Anemia HX Anxiety Arthritis NECK Back problem HX INJECTIONS, POSSIBLE NEED FOR SX Anthony's esophagus BPH (benign prostatic hyperplasia) CAD (coronary artery disease) Last cardiac cath 08/09/2011 and demonstrated severe jamul vessel disease and an occluded SVG to the OM2. All other grafts noted to be patent at that time. 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 Smith Congestive heart failure chronic combined systolic and diastolic EF 45% 2011 Diabetes mellitus, type 2 IDDM Dyslipidemia GERD (gastroesophageal reflux disease) Gout HX History of colon polyps History of radiation therapy 5 TX A FEW YRS AGO FOR LUNG NODULES..."MADE IT GROW MORE" History of renal calculi HTN (hypertension) Ileostomy, has currently PER PT: SWELLED UP AROUND WHERE BAG HOOKS UP "RUPTURED" NO PROBLEMS WITH FUNCTIONING , DR AWARE...POSSIBLE NEED FOR UPCOMING SX Lung cancer (07/23/20) Right Lower Lobe - Adenocarcinoma Lung nodules ? DETAILS/REASON FOR UPCOMING PROCEDURE Metastatic primary lung cancer MRSA (methicillin resistant Staphylococcus aureus) Per infection control, 02/2018: "Patient has a history of MRSA in a wound and a nasal screen in 2014. Patient requires contact precautions." Myocardial Infarction 2005 - CABG X5 VESSELS. Subsequent caths with stenting 2005 and 2006. Obesity Huma's syndrome On home oxygen therapy 2LPM VIA N/C AT HS PRN Physical debility Poor historian spoke with who is a good historian Secondary hyperparathyroidism Sleep apnea O2 AT NIGHT PRN Surgical History H/O lithotripsy x 2 History of bronchoscopy x3, last 02/10/22 @ [facility] Grade 1 view, MAC 3, ETT 9. History of cardiac cath 2006 PCI of LCx 2007 PCI of LAD 2011 severe jamul vessel dz and an occluded SVG to OM2 graft. All other grafts patent. History of colonoscopy History of coronary artery bypass graft X5 VESSELS AT [facility] 2005 History of esophagogastroduodenoscopy (EGD) History of surgery PROCEDURE LAST YR MEDINAH - ? ENDOBRONCHIAL U/S - PT NOT SURE FINDINGS History of total colectomy for Huma's syndrome History of total hip arthroplasty RIGHT HIP -- WITH MULTIPLE REVISIONS Port-A-Cath in place (07/06/22) Access port placement with use of fluoroscopy. Status post coronary artery bypass grafting "x 2004" Family History Father , Passed age 92 of metastatic prostate cancer No problems noted. Mother , Passed age 87 of chronic problems No problems noted. Brother , Passed age 54 of [place] Heart disease Sister Breast cancer Son No problems noted. Son No problems noted. Daughter No problems noted. Other No family history of adverse response to anesthesia Social History Smoking Status: Former smoker Tobacco Type: Cigarettes Age Started Using Tobacco: 13; Age Quit Using Tobacco: 59; packs per day: 3; Second Hand Exposure: Yes (parents smoked); Hx Alcohol Use: No Hx Substance Use: No Preferred Language: Hungarian Communication Ability: Effective Visual Impairment: No Limitations Hearing Ability: Normal Site Medical Director Required: No Beliefs That Will Affect Care: None marital status: Current Living Situation: Spouse Current Living Situation Comment: Lives with current occupational status: retired 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 He is unable to extend his head. He does have tenderness palpation on the right suboccipital region. He has reasonable strength and sensory to the upper and lower extremities. Results & Data Vital Signs (Past 12 Hours) Vital Signs Temp Pulse Resp BP Pulse Ox O2 Del Method 09/06/22 20:49 36.8 C 80 18 143/89 H 93 Room Air
[2022-09-07] MEDS: FLUTICASONE/VILANTEROL 100/25MCG 14 PUFFS/INHALER INH SCH (08:28)
[2022-09-07] MEDS: UMECLIDINIUM BROMIDE 62.5MCG/BLISTER 7 PUFFS/INHALER INH SCH (08:29)
[2022-09-07] MEDS: allopurinoL 300 MG TAB PO SCH (08:29)
[2022-09-07] MEDS: CYCLOBENZAPRINE HCL 5 MG TAB PO SCH (08:29)
[2022-09-07] MEDS: ASPIRIN 81 MG ECTAB PO SCH (08:30)
[2022-09-07] MEDS: CHOLECALCIFEROL 1,000 UNITS 25 MCG TAB PO SCH (08:30)
[2022-09-07] MEDS: SERTRALINE HCL 50 MG TABLET PO SCH (08:30)
[2022-09-07] MEDS: FUROSEMIDE 80 MG TAB PO SCH ×2 (08:30→17:36)
[2022-09-07] MEDS: FINASTERIDE 5 MG TAB PO SCH (08:30)
[2022-09-07] MEDS: SPIRONOLACTONE 12.5 MG TAB PO SCH (08:30)
[2022-09-07] MEDS: PANTOprazole 40 MG TAB PO SCH (08:31)
[2022-09-07] MEDS: guaiFENesin 600 MG TABCR PO SCH ×2 (08:31→20:35)
[2022-09-07] MEDS: OFLOXACIN 0.3% 75 DROPS/5 ML BTL OPL SCH ×4 (08:31→20:37)
[2022-09-07] MEDS: METOPROLOL SUCC 50MG EXT REL TAB PO SCH (08:31)
[2022-09-07] MEDS: LANTUS PER UNIT CHARGE SQ SCH ×2 (08:43→20:37)
[2022-09-07] MEDS: INSULIN ASPART PER UNIT CHARGE SC SCH ×4 (08:43→20:38)
[2022-09-07] MEDS: oxyCODONE HCL IR 5 MG TAB (IMMEDIATE RELEASE) PO PRN ×4 (08:44→22:17)
[2022-09-07] MEDS: HEPARIN SOD 5,000 UNIT/0.5 ML VIAL SQ SCH ×2 (09:26→20:34)
[2022-09-07] MEDS: GABAPENTIN 100 MG CAP PO SCH (09:26)
--- NOTE | 2022-09-07 10:38 | Neurology Progress Note ---
Date of Service September 07, 2022 Assessment & Plan (1) Headache: (2) Cervicalgia: (3) Hydrocephalus ex vacuo: (4) Cerebrovascular disease: Plan This patient has a headache lasting about 2 weeks on the left side of her refractory nature. It is coupled with posterior cervical spine pain and limitations of movement of his neck. I suspect a mechanical origin to his neck pain and limitations of motion. However, I cannot exclude carcinomatosis meningitis in lieu of his metastatic lung cancer. Narcotics have not helped his headache so far. The patient has had several MRIs in the last few months including 1 last week which showed no metastatic cancer intracerebrally. It did show mild hydrocephalus ex vacuo cerebral vascular disease. Increased intracranial pressure can give headaches but they tend to be generalized and such as this patient. On examination the patient has no signs of upper motor neuron disease or meningeal signs. Recommendations: 1. Agree with LP to look for opening pressure as well as cytology for abnormal cells. 2. I agree with Dr. Martinez that an MRI of the cervical spine may be necessary to look for metastases (if the patient can tolerate it). it would be done with and without contrast 3. Consider anti-inflammatory agent such as ketorolac, or even a tapering prednisone course to see if this helps his headache and neck pain. 4. Consider increasing cyclobenzaprine to 10 mg twice a day. 5. Consider increasing gabapentin to 300 mg 3 times a day. 6. Additional recommendations will be made after the above tests overall, spent a total of 50 min with this case, including review of records, review of MRI films, reports generation, direct evaluation the patient bedside, and discussion of the case with Drs. Martinez and Ashish, including differential diagnosis and treatment options. Admission and Anticipated Discharge Date Admission Date: September 06, 2022 Subjective Patient has had almost 2 weeks of continuous, severe headaches. They are on the left side and they are tight with a steady throbbing. There is no nausea or vomiting but the could be photophobia or phonophobia. His posterior neck is tender and he needs to hold his head down and to the left for comfort. Any attempt to move his head up into the right increases neck pain. Although he has no pamela radicular pain in his right upper extremity he feels that his proximal arm is sore. He denies low back pain or incontinence of urine his gait is shuffling and slow and he uses a walker for support. He feels weak all over. Otherwise his upper extremities are largely asymptomatic. An MRI of the brain September 02 at [facility] (outpatient MRI) showed no evidence of metastasis, with and without contrast. CT scan of the cervical spine September 06 showed diffuse spondylitic change at multiple levels. Dr. Martinez had been consulted. Oxycodone and hydromorphone have not helped. He is currently on gabapentin 200 mg twice a day Exam (Neuro) Physical Exam: he is awake and alert. Speech is without aphasia or dysarthria. Mood and affect seem normal appropriate. Thought processes are intact to conversation. Patient has his head turned to the left and down to help minimize pain. Extraocular eye muscles are intact without nystagmus. Pupils are 4 mm bilaterally reactive to light. There is no facial droop and tongue is midline. The neck is tight and cannot be moved more than 5-10 degrees in any direction secondary to pain. With outstretched arms there is no drift but he does have action tremor bilaterally. There is no resting tremor. [id number] testing showed no ataxia. Strength was 5/5 diffusely in all major muscle groups in the arms and legs both proximally distally. Toes were downgoing plantar stimulation bilaterally and sensation was good in the feet. Reflexes were 1/4 in all 4 limbs. PG Care Time/CCT Total # of Minutes Spent Total Time Spent with Patient: Total time spent is greater than 50% in coordination of care (as documented) at patient's floor/unit and/or counseling patient: Coding Level of Care Code 96527 SUB INP/OBS CARE 3/50MIN Diagnoses Headache R51.9 Cervicalgia M54.2 Hydrocephalus ex vacuo G91.8 Cerebrovascular disease I67.9 Time Spent (min) 50
[2022-09-07] MEDS ORDERED: metOLazone 5 MG TABLET PO PRN (11:00)
[2022-09-07 12:40] LABS: Total Protein CSF 96.2 mg/dl (15-45)
[2022-09-07] MEDS: ACETAMINOPHEN 325 MG TAB PO PRN (12:55)
[2022-09-07] MEDS ORDERED: CYCLOBENZAPRINE HCL 5 MG TAB PO ONE (13:46)
[2022-09-07 13:50] LABS: Appearance CSF Clear; CSF Count Tube # 3; CSF Xanthrochromic No xanthochromia; Color CSF Colorless
[2022-09-07 14:08] LABS: Cryptococcus neoformans/ga PCR Not Detected (NotDetected); Cytomegalovirus PCR Not Detected (NotDetected); Enterovirus PCR Not Detected (NotDetected); Escherichia coli K1 PCR Not Detected (NotDetected); Haemophilius influenzae PCR Not Detected (NotDetected); Herpes Simplex Virus 1 PCR Not Detected (NotDetected); Herpes Simplex Virus 2 PCR Not Detected (NotDetected); Human Herpes Virus 6 PCR Not Detected (NotDetected); Human Parechovirus PCR Not Detected (NotDetected); Listeria monocytogenes PCR Not Detected (NotDetected); Neisseria meningitidis PCR Not Detected (NotDetected); Streptococcus agalactiae PCR Not Detected (NotDetected); Streptococcus pneumoniae PCR Not Detected (NotDetected); Varicella Zoster Virus PCR Not Detected (NotDetected)
--- NOTE | 2022-09-07 14:25 | Fluoroscopy Report ---
Lumbar puncture under fluoroscopy INDICATION: Possible normal pressure hydrocephalus PROCEDURE: Procedure and risks were delayed. Informed consent was obtained. The patient was placed in a [place] position on the fluoroscopic examination table. The lower lumbar region was prepped and draped in sterile fashion. 1% lidocaine was utilized for skin anesthesia. Utilizing fluoroscopic guidance, a 22-gauge spinal needle was advanced into the intrathecal space at the L3-L4 disc space level. Spot image was obtained. Opening pressure was measured at 17 cm H2O. Appr oximately 9 mL of clear CSF fluid was removed and sent to the lab for analysis. The needle was remove d and Band-Aid applied. The patient tolerated the procedure well. Total fluoroscopy time 2 minutes. D AP is 152.5 mcGy/m2. IMPRESSION: Lumbar puncture as above. Performed, dictated, and signed by Damon Gibson PA-C; to be co-signed by Dr. Isaac Martino. Electronically signed by: Isaac Martino M.D. 09/07/2022 5:36 PM
[2022-09-07] MEDS: predniSONE 10 MG TABLET PO SCH (15:09)
[2022-09-07] MEDS: AMPICILLIN 2,000 MG in SODIUM CHLOR 0.9% AD-VAN 100 ML IV SCH ×2 (15:09→22:16)
--- NOTE | 2022-09-07 17:19 | Hospitalist Progress Note ---
Date of Service September 07, 2022 Assessment & Plan (1) Headache: Plan: Patient is a 76 yr male with H/O metastatic lung cancer, COPD, combined systolic and diastolic CHF, insulin-requiring DM, and CAD who presented to the ED this morning with ongoing and worsening of headache over the last 10 days., now becoming so severe as to interfere with ADLs. Intractable headache Cervicalgia with Neck Stiffness Anterolisthesis C4-C5, moderate spondylosis DD: NPH, Meningitis/Encephalitis, cervicogenic headache or occipital neuralgia --Outpatient MRI done on 09/02/22 showed No evidence of intracranial metastatic disease or acute intracranial abnormality. Finding seen in the setting of normal pressure hydrocephalus. Recommend clinical correlation. Moderate chronic small vessel ischemic disease. --Head CT:This study is nearly nondiagnostic secondary to patient positioning. No acute intracranial abnormality identified on this markedly limited study. Consider repeat imaging if there is further clinical merit. --Neck CT:There is no evidence of fracture or subluxation involving the cervical spine. Osteopenia and spondylotic change as above. --Could not obtain repeat MRI as patient refused/secondary to pain --Will obtain Lumbar Puncture with IR help and check CSF studies to rule out infection/NPH etc -- Appreciate neurology input Appreciate orthopedics input. Started on cyclobenzaprine, gabapentin, prednisone taper, Pain control PT/OT as able Had lumbar puncture today Follow-up CSF studies Will need MRI of the neck when pain is better controlled to assess need for further intervention May need to consult pain management Avoid NSAIDs given CKD UTI-POA Urine culture growing Enterococcus faecalis Started on ampicillin (2) Left conjunctivitis: Plan: Ofloxacin drops x 7-10 days (3) CHF (congestive heart failure): Plan: Chronic diastolic heart failure CXR:. Stable cardiomegaly. Pulmonary vascular congestion without overt pulmonary edema. Right lower lobe mass, better depicted on prior chest CT. No change in left basilar opacity likely related to a chronic pleural effusion. Continue home medications Monitor volume status (4) CKD (chronic kidney disease): Plan: Creatinine baseline ~ 2 Monitor renal function Avoid nephrotoxic agents as able (5) COPD with emphysema: Plan: Continue inhalers No signs of acute exacerbation (6) Pulmonary hypertension: (7) Metastatic primary lung cancer: Plan: Follows with Dr. Bravo - received chemo x 1 but didn't tolerate, not planning for additonal chemo at this point (8) Sleep apnea: Plan: Wears O2 at night - 2-2.5 L (9) Diabetes mellitus, type 2: Plan: Continue basal insulin with sliding scale BSG ACHS Diabetic diet Plan Continue other home medications as appropriate DVT Px: Heparin SQ Code Status: Full code Admission and Anticipated Discharge Date Admission Date: September 06, 2022 Subjective Patient is seen and examined at bedside States having persistent headache, neck pain and stiffness Discussed with neurology today Had lumbar puncture today Denies any chest pain, dyspnea, dizziness, nausea, abdominal pain No other complaints Review of Systems Review of Systems: All systems reviewed & are unremarkable except as noted in Subjective Physical Exam Physical Exam: Physical Exam: Vitals signs as noted above General Appearance:Moderately built and nourished, no apparent distress Head: normocephalic, Atraumatic Eyes: normal inspection, EOMI Neck: supple, Trachea midline, +Stiffness, decreased ROM due to pain Respiratory/Chest: Decreased breath sounds, basal crackles, No accessory muscle use Cardiovascular: S1, S2, No murmur Abdomen/GI:Soft, Non tender, Bowel sounds present Extremities/Musculoskeletal:normal inspection, Trace edema Neurologic/Psych:AAOX3, grossly no focal neurological deficits Skin: normal color, warm Results & Data Results & Data Vital Signs (Past 12 Hours) Vital Signs Temp Pulse Resp BP Pulse Ox O2 Del Method 09/07/22 16:34 36.3 C L 75 16 118/74 95 Room Air 09/07/22 14:31 36.4 C L 84 16 114/68 97 Room Air 09/07/22 07:40 Room Air Laboratory Results Short CBC 09/07/22 Range/Units 07:29 WBC 12.48 H (4.8-10.8) K/ul Hgb 12.9 L (14.0-18.0) g/dl Hct 39.3 L (42.0-52.0) % Plt Count 205 (130-400) K/uL BMP 09/07/22 07:29 Sodium 143 Potassium 3.8 Chloride 103 Carbon Dioxide 30 BUN 78 H Creatinine 1.99 H Glucose 168 H Calcium 9.6 (3) CHF (congestive heart failure) Heart failure chronicity: acute Heart failure type: unspecified Qualified Code(s): I50.9 - Heart failure, unspecified
[2022-09-07] MEDS: HYDROmorphone INJ 0.5 MG/0.5 ML SYR IV PRN (19:22)
[2022-09-07] MEDS: CYCLOBENZAPRINE HCL 10 MG TAB PO SCH (20:32)
[2022-09-07] MEDS: GABAPENTIN 300 MG CAP PO SCH (20:33)
[2022-09-07] MEDS: FAMOTIDINE 20 MG TAB PO SCH (20:35)
[2022-09-07] MEDS: ATORVASTATIN 40 MG TAB PO SCH (20:36)
[2022-09-07] MEDS: METOPROLOL SUCC 25MG EXT REL TAB PO SCH (20:36)
[2022-09-07] MEDS ORDERED: GABAPENTIN 300 MG CAP PO SCH (21:00)
[2022-09-08] MEDS ORDERED: dexAMETHasone 10 MG in SYRINGE 0 ML IV ONE (00:43)
[2022-09-08] MEDS ORDERED: ACETAMINOPHEN 1,000 MG/100 ML VIAL IV STA (00:44)
[2022-09-08] MEDS: AMPICILLIN 2,000 MG in SODIUM CHLOR 0.9% AD-VAN 100 ML IV SCH ×3 (06:09→22:37)
[2022-09-08] MEDS: HEPARIN 100 UNIT/ML 5ML FLUSH FLUSH PRN (07:49)
[2022-09-08] MEDS: oxyCODONE HCL IR 5 MG TAB (IMMEDIATE RELEASE) PO PRN ×2 (07:49→18:26)
[2022-09-08] MEDS: UMECLIDINIUM BROMIDE 62.5MCG/BLISTER 7 PUFFS/INHALER INH SCH (07:53)
[2022-09-08] MEDS: predniSONE 10 MG TABLET PO SCH (07:54)
[2022-09-08] MEDS: FLUTICASONE/VILANTEROL 100/25MCG 14 PUFFS/INHALER INH SCH (07:54)
[2022-09-08] MEDS: allopurinoL 300 MG TAB PO SCH (07:54)
[2022-09-08] MEDS: METOPROLOL SUCC 50MG EXT REL TAB PO SCH (07:54)
[2022-09-08] MEDS: guaiFENesin 600 MG TABCR PO SCH ×2 (07:54→20:18)
[2022-09-08] MEDS: FINASTERIDE 5 MG TAB PO SCH (07:55)
[2022-09-08] MEDS: GABAPENTIN 300 MG CAP PO SCH ×3 (07:55→20:20)
[2022-09-08] MEDS: CYCLOBENZAPRINE HCL 10 MG TAB PO SCH ×3 (07:55→20:15)
[2022-09-08] MEDS: FUROSEMIDE 80 MG TAB PO SCH ×2 (07:55→12:39)
[2022-09-08] MEDS: CHOLECALCIFEROL 1,000 UNITS 25 MCG TAB PO SCH (07:55)
[2022-09-08] MEDS: SPIRONOLACTONE 12.5 MG TAB PO SCH (07:56)
[2022-09-08] MEDS: SERTRALINE HCL 50 MG TABLET PO SCH (07:56)
[2022-09-08] MEDS: ASPIRIN 81 MG ECTAB PO SCH (07:56)
[2022-09-08] MEDS: PANTOprazole 40 MG TAB PO SCH (07:56)
[2022-09-08] MEDS: OFLOXACIN 0.3% 75 DROPS/5 ML BTL OPL SCH ×4 (07:57→20:21)
[2022-09-08 08:37] LABS: Hematocrit (blood only) 41.6 % (42.0-52.0); Mean Corpuscular Hemoglobin 30.4 pg (25.0-34.0); Mean Corpuscular Hgb Conc 31.3 g/dL (32.0-36.0); Mean Corpuscular Volume 97.4 fL (80.0-100.0); Mean Platelet Volume 10.6 fL (9.4-12.4); Platelet Count 212 K/uL (130-400); RDW Coefficient of Variation 14.7 % (11.5-14.5); RDW Standard Deviation 53.4 fL (36.4-46.3); Red Blood Count 4.27 M/uL (4.70-6.10); White Blood Count 10.35 K/ul (4.8-10.8)
[2022-09-08 09:00] LABS: BUN Creatinine Ratio 40.7 (10-20); Calcium 9.5 mg/dl (8.6-10.3); Creatinine Clr Calc Pharmacy 32.9 ml/min; Est GFR (African American) 33.2 ml/min; Est GFR (Non-African American) 28.6 ml/min; Potassium 4.3 mmol/L (3.5-5.1)
[2022-09-08] MEDS: INSULIN ASPART PER UNIT CHARGE SC SCH ×4 (09:08→20:16)
[2022-09-08] MEDS: LANTUS PER UNIT CHARGE SQ SCH ×2 (09:09→20:16)
[2022-09-08] MEDS: HEPARIN SOD 5,000 UNIT/0.5 ML VIAL SQ SCH ×2 (10:52→20:17)
--- NOTE | 2022-09-08 11:11 | Neurology Progress Note ---
Date of Service September 08, 2022 Assessment & Plan (1) Headache: (2) Cervicalgia: (3) Hydrocephalus ex vacuo: (4) Cerebrovascular disease: Plan This patient has a headache lasting about 2 weeks on the left side of her refractory nature. It is coupled with posterior cervical spine pain and limitations of movement of his neck. I suspect a mechanical origin to his neck pain and limitations of motion. However, I cannot exclude carcinomatosis meningitis in lieu of his metastatic lung cancer. Lumbar puncture is unremarkable so far. The elevated protein is nonspecific but might correlate with inflammation. Awaiting final cultures And cytology. Narcotics have not helped his headache so far. The patient has had several MRIs in the last few months including 1 last week which showed no metastatic cancer intracerebrally. It did show mild hydrocephalus ex vacuo cerebral vascular disease. Increased intracranial pressure can give headaches but they tend to be generalized and such as this patient. On examination the patient has no signs of upper motor neuron disease or meningeal signs. Recommendations: 1. consider MRI of the cervical spine with and without contrast. 2. Continue tapering prednisone course to see if this helps his headache and neck pain. 4. consider increasing cyclobenzaprine to 10 mg 3 times a day. 5. Consider increasing gabapentin to 300 mg 3 times a day. 6. Consider pain management consult. overall, spent a total of 35 min with this case, including review of records, reports generation, direct evaluation the patient bedside, and discussion of the case with Dr. Callejas, including differential diagnosis and treatment options. Admission and Anticipated Discharge Date Admission Date: September 06, 2022 Subjective Patient continues to have severe left-sided neck and head pain. It is no better than it was before. LP showed opening pressure of 17 (normal less than 20) with 2 white cells, 21 red cells, and a protein of 96. Glucose was 115 ( serum 168). Gram stain showed no cells or organisms. Blood pressure is 134/74 and CBC was stable. Chem profile revealed a glucose of 249. Results & Data Vital Signs (Past 12 Hours) Vital Signs Temp Pulse Resp BP Pulse Ox O2 Del Method 09/08/22 07:29 36.5 C 85 18 134/74 94 Room Air Exam (Neuro) Physical Exam: patient is awake and alert. Speech is without aphasia or dysarthria. He still has his head down and to the left and will not move it secondary to pain from this position. There are no abnormal involuntary movements. PG Care Time/CCT Total # of Minutes Spent Total Time Spent with Patient: Total time spent is greater than 50% in coordination of care (as documented) at patient's floor/unit and/or counseling patient: Coding Level of Care Code 49304 SUB INP/OBS CARE 2/35MIN Diagnoses Headache R51.9 Cervicalgia M54.2 Hydrocephalus ex vacuo G91.8 Cerebrovascular disease I67.9 Time Spent (min) 35
[2022-09-08] MEDS ORDERED: LORazepam 2 MG/1 ML VIAL IV PRN (13:32)
--- NOTE | 2022-09-08 14:16 | Hospitalist Progress Note ---
Date of Service September 08, 2022 Assessment & Plan (1) Headache: Plan: 76 yr male with H/O metastatic lung cancer, COPD, combined systolic and diastolic CHF, insulin-requiring DM, and CAD who presented to the ED this morning with ongoing and worsening of headache over the last 10 days., now becoming so severe as to interfere with ADLs. Intractable headache Cervicalgia with Neck Stiffness DD: NPH, Cervicogenic headache or occipital neuralgia --Outpatient MRI done on 09/02/22 showed No evidence of intracranial metastatic disease or acute intracranial abnormality. Finding seen in the setting of normal pressure hydrocephalus. Recommend clinical correlation. Moderate chronic small vessel ischemic disease. --Head CT:This study is nearly nondiagnostic secondary to patient positioning. No acute intracranial abnormality identified on this markedly limited study. Consider repeat imaging if there is further clinical merit. --Neck CT:There is no evidence of fracture or subluxation involving the cervical spine. Osteopenia and spondylotic change LP done yesterday is unremarkable based on fluid analysis. Protein elevated. Follow up cultures/cytology Currently on cyclobenzaprine, gabapentin, prednisone Neurologist rec noted. Cyclobenzaprin and gabapentin changed to TID Will taper prednisone Will get MRI cervical spine. Ativan prn for MRI per patient's request Pain management consult PT/OT Avoid NSAIDs due to CKD UTI-POA Urine culture growing Enterococcus faecalis Continue ampicillin (2) Left conjunctivitis: Plan: Ofloxacin drops x 7-10 days (3) CHF (congestive heart failure): Plan: Chronic diastolic heart failure CXR:. Stable cardiomegaly. Pulmonary vascular congestion without overt pulmonary edema. Right lower lobe mass, better depicted on prior chest CT. No change in left basilar opacity likely related to a chronic pleural effusion. Continue home medications Monitor volume status (4) CKD (chronic kidney disease): Plan: Creatinine baseline ~ 2 Monitor renal function Avoid nephrotoxic agents as able (5) COPD with emphysema: Plan: Continue inhalers No signs of acute exacerbation (6) Pulmonary hypertension: (7) Metastatic primary lung cancer: Plan: Follows with Dr. Bravo - received chemo x 1 but didn't tolerate, not planning for additonal chemo at this point (8) Sleep apnea: Plan: Wears O2 at night - 2-2.5 L (9) Diabetes mellitus, type 2: Plan: Continue basal insulin with sliding scale BSG ACHS Diabetic diet Plan Continue other home medications as appropriate DVT Px: Heparin SQ Code Status: Full code Updated who was present I spent a total of 50 minutes coordinating, documenting and providing care for this patient excluding time spent in performance of separately billed services Admission and Anticipated Discharge Date Admission Date: September 06, 2022 Subjective Patient seen and examined. Continues to complain of headache mostly left-sided involving the left side of the neck as well. Denies any nausea, vomiting, blurry vision. Denies any abdominal pain Denies any fevers or chills Denies cough, shortness of breath, chest pain Physical Exam Constitutional: + well hydrated; no acute distress Eyes: PERRL, conjunctivae normal, anicteric sclerae Neck: Neck is flexed and to the left Reports pain with passive ROM Respiratory: normal respiratory effort, lungs clear to auscultation Cardiovascular: Rate/Rhythm: regular rate and regular rhythm S1 S2 Gastrointestinal (Abdomen): normal bowel sounds, soft, nontender, no hepatosplenomegaly Musculoskeletal: Trace pedal edema Stasis changes Skin: Sacral ulcer Neurologic: PERRL, EOMI, accommodation nl, no face palsy, no dysarthria Results & Data Results & Data Vital Signs (Past 12 Hours) Vital Signs Temp Pulse Resp BP Pulse Ox O2 Del Method 09/08/22 07:30 Room Air 09/08/22 07:29 36.5 C 85 18 134/74 94 Room Air Laboratory Results Abnormal lab results 09/07/22 09/07/22 09/08/22 Range/Units 17:06 20:27 07:49 RBC 4.27 L (4.70-6.10) M/uL Hgb 13.0 L (14.0-18.0) g/dl Hct 41.6 L (42.0-52.0) % MCHC 31.3 L (32.0-36.0) g/dL RDW Std Deviation 53.4 H (36.4-46.3) fL RDW Coeff of Josiah 14.7 H (11.5-14.5) % BUN (6-23) mg/dl Creatinine (0.6-1.4) mg/dl BUN/Creatinine Ratio (10-20) Glucose (70-99(Fasting)) mg/dl POC Glucose 192 H 174 H (70-99) mg/dl 09/08/22 09/08/22 09/08/22 Range/Units 07:49 08:13 12:03 RBC (4.70-6.10) M/uL Hgb (14.0-18.0) g/dl Hct (42.0-52.0) % MCHC (32.0-36.0) g/dL RDW Std Deviation (36.4-46.3) fL RDW Coeff of Josiah (11.5-14.5) % BUN 87 H (6-23) mg/dl Creatinine 2.14 H (0.6-1.4) mg/dl BUN/Creatinine Ratio 40.7 H (10-20) Glucose 249 H (70-99(Fasting)) mg/dl POC Glucose 226 H 258 H (70-99) mg/dl (3) CHF (congestive heart failure) Heart failure chronicity: acute Heart failure type: unspecified Qualified Code(s): I50.9 - Heart failure, unspecified
[2022-09-08] MEDS: HYDROmorphone INJ 0.5 MG/0.5 ML SYR IV PRN (20:16)
[2022-09-08] MEDS: FAMOTIDINE 20 MG TAB PO SCH (20:19)
[2022-09-08] MEDS: ATORVASTATIN 40 MG TAB PO SCH (20:19)
[2022-09-08] MEDS: METOPROLOL SUCC 25MG EXT REL TAB PO SCH (20:20)
[2022-09-09] MEDS: AMPICILLIN 2,000 MG in SODIUM CHLOR 0.9% AD-VAN 100 ML IV SCH ×2 (05:00→17:48)
[2022-09-09] MEDS: FUROSEMIDE 80 MG TAB PO SCH ×2 (08:34→13:18)
[2022-09-09] MEDS: ASPIRIN 81 MG ECTAB PO SCH (08:34)
[2022-09-09] MEDS: FINASTERIDE 5 MG TAB PO SCH (08:34)
[2022-09-09] MEDS: CHOLECALCIFEROL 1,000 UNITS 25 MCG TAB PO SCH (08:34)
[2022-09-09] MEDS: GABAPENTIN 300 MG CAP PO SCH ×2 (08:34→13:18)
[2022-09-09] MEDS: allopurinoL 300 MG TAB PO SCH (08:34)
[2022-09-09] MEDS: CYCLOBENZAPRINE HCL 10 MG TAB PO SCH (08:34)
[2022-09-09] MEDS: SPIRONOLACTONE 12.5 MG TAB PO SCH (08:35)
[2022-09-09] MEDS: HEPARIN SOD 5,000 UNIT/0.5 ML VIAL SQ SCH ×2 (08:35→20:54)
[2022-09-09] MEDS: FLUTICASONE/VILANTEROL 100/25MCG 14 PUFFS/INHALER INH SCH (08:35)
[2022-09-09] MEDS: PANTOprazole 40 MG TAB PO SCH (08:35)
[2022-09-09] MEDS: METOPROLOL SUCC 50MG EXT REL TAB PO SCH (08:35)
[2022-09-09] MEDS: UMECLIDINIUM BROMIDE 62.5MCG/BLISTER 7 PUFFS/INHALER INH SCH (08:35)
[2022-09-09] MEDS: guaiFENesin 600 MG TABCR PO SCH ×2 (08:35→20:54)
[2022-09-09] MEDS: SERTRALINE HCL 50 MG TABLET PO SCH (08:35)
[2022-09-09] MEDS: predniSONE 10 MG TABLET PO SCH (08:35)
[2022-09-09] MEDS: OFLOXACIN 0.3% 75 DROPS/5 ML BTL OPL SCH ×4 (08:36→20:55)
--- NOTE | 2022-09-09 08:45 | Pain Management Consultation ---
Date of Consultation September 09, 2022 Assessment & Plan (1) Cervical dystonia: (2) Cervicogenic headache: (3) Diabetes mellitus, type 2: (4) CKD (chronic kidney disease): (5) Lung cancer: Laterality: right Lung location: lower lobe of lung Qualified Code(s): C34.31 - Malignant neoplasm of lower lobe, right bronchus or lung Plan 1. Symptomatic presentation appears to be most consistent with cervical dystonia and cervicogenic headache. Treatment options were discussed. Would plan to pursue Botox myoneural injections for cervical dystonia to include left- sided sternocleidomastoid, scalene and trapezius musculature initially with 200 total units. This will be performed in outpatient setting upon discharge. 2. Will discontinue cyclobenzaprine and initiate baclofen 10 mg 3 times daily. Side effects risk benefits discussed. 3. Recommend continued prednisone taper and maintain gabapentin at 300 mg 3 times daily 4. We discussed NSAIDs with hospitalist service but ultimately deferred due to his CKD 5. Opioids will likely be of limited utility for neck pain associate with cervical dystonia. Would not recommend chronic utilization of opiates 6. Will plan to see patient in outpatient pain clinic upon discharge for evaluation and Botox myoneural injections for cervical dystonia Thank you for allowing us to participate in the care of Mr. Carroll. History of Present Illness Reason for Consultation: Neck pain Requesting Physician: Cevallos MD Attending Physician: Guera Callejas MD History of Present Illness Mr. Carroll is a 77-year-old white male who was admitted for acute on chronic axial neck pain which is probably left-sided and left-sided hemicranial headache. Patient has multiple comorbid medical conditions including but not limited to metastatic lung disease, COPD, CHF, CKD, diabetes mellitus, pulmonary hypertension and sleep apnea. Patient reports history of chronic axial neck pain with increased in severity over the previous 10-14 days without known injury. He was further describing difficulty left-sided headache which she was describing as severe traveling to the frontal location with throbbing and sharp characteristic pains. He was reporting difficulty chewing because of the se verity of the headache. He is reporting limited range of motion of the head and neck due to increased neck pain left greater than right-sided. Patient reports cracking and popping noise/sensation of the axial neck. He denies any neck pain radiating into the shoulders or upper extremities without a radicular component. He has no upper extremity paresthesia or weakness. Patient rates his pain a 4/10 at its best and a 9/10 at its worst. He reports his pain is slightly improved today compared to yesterday with a 10-20% improvement only. MRI was attempted last evening but the patient was unable to tolerate. Patient has undergone extensive diagnostic evaluation upon this admission with CT scan, MRI of the brain and lumbar puncture. Lumbar puncture has been ordered and unremarkable so far. There is no evidence of intracerebral metastatic disease from his history of lung cancer. He is reporting no relief from opiate therapy. He has been placed on prednisone taper and muscle relaxers with minimal relief. He is a poor candidate for NSAIDs due to CKD. Plan of care discussed with Dr. Sandra Ceja. Pain Assessment Full Body Front + Back: 1. Left greater than right axial neck pain 2. Left-sided hemicranial headache Pain scale - at its best (0-10): 4 Pain scale - at its worst (0-10): 9 Allergies Allergy/AdvReac Type Severity Reaction Status Date / Time No Known Allergies Allergy U Verified 08/05/22 16:20 Home Medications Medication Instructions Recorded Confirmed Type albuterol sulfate 2.5 mg/3 mL 2.5 mg inhalation Q4 PRN cough,SOB 03/08/18 09/05/22 History (0.083 %) solution for nebulization allopurinol 300 mg tablet 300 mg PO QAM 03/08/18 09/05/22 History aspirin 81 mg tablet,delayed 81 mg PO QAM 03/08/18 09/05/22 History release (Dane Low Dose Aspirin) atorvastatin 40 mg tablet 40 mg PO HS 03/08/18 09/05/22 History furosemide 80 mg tablet 80 mg PO BID 03/08/18 09/05/22 History insulin aspart U-100 100 unit/mL 1 dose subcut BID 03/08/18 09/05/22 History (3 mL) subcutaneous pen (Novolog FlexPen U-100 Insulin aspart) insulin glargine 100 unit/mL 40 unit subcut HS 03/08/18 09/05/22 History subcutaneous solution (Lantus U-100 Insulin) metoprolol succinate 50 mg 50 mg PO UD 03/08/18 09/05/22 History tablet,extended release 24 hr omeprazole 40 mg capsule,delayed 40 mg PO QAM 03/08/18 09/05/22 History release spironolactone 25 mg tablet 12.5 mg PO QAM #0 tabs 01/27/20 09/05/22 Rx cholecalciferol (vitamin D3) 50 50 mcg PO QAM 12/04/20 09/05/22 History mcg (2,000 unit) capsule famotidine 20 mg tablet 20 mg PO HS 12/04/20 09/05/22 History albuterol sulfate 90 mcg/actuation 2 puff inhalation QID PRN 02/12/21 09/05/22 History aerosol inhaler (ProAir HFA) Shortness Of Breath metolazone 5 mg tablet 5 mg PO WK 02/12/21 09/05/22 History promethazine 25 mg tablet 25 mg PO Q6H PRN NAUSEA/VOMITING 02/12/21 09/05/22 History finasteride 5 mg tablet 5 mg PO QAM #90 tabs 12/01/21 09/05/22 Rx Portable Oxygen #1 ea 01/29/22 09/05/22 Rx sertraline 50 mg tablet 50 mg PO QAM 02/03/22 09/05/22 History guaifenesin 600 mg tablet, 600 mg PO AMHS 08/16/22 09/05/22 History extended release 12 hr (Mucinex) hydroxyzine HCl 25 mg tablet 25 mg PO TID PRN Anxiety 08/16/22 09/05/22 History ipratropium 0.5 mg-albuterol 3 mg 3 ml inhalation Q4H PRN cough,SOB 08/16/22 09/05/22 History (2.5 mg base)/3 mL nebulization soln loperamide 2 mg tablet 2 mg PO QID PRN Diarrhea 08/16/22 09/05/22 History fluticasone fur. 100 mcg-umeclid 1 inh inhalation DAILY #3 Inhalers 08/18/22 09/05/22 Rx 62.5 mcg-vilant 25 mcg inhalat.powder (Trelegy Ellipta) Pain History Pain Intensity Pain scale - at its best (0-10): 4 Pain scale - at its worst (0-10): 9 Patient History Medical History (Updated 09/09/22 @ 09:20 by Bart Davalos PA-C) Advanced COPD Anemia HX Anxiety Arthritis NECK Back problem HX INJECTIONS, POSSIBLE NEED FOR SX Anthony's esophagus BPH (benign prostatic hyperplasia) CAD (coronary artery disease) Last cardiac cath 08/09/2011 and demonstrated severe [place] vessel disease and an occluded SVG to the OM2. All other grafts noted to be patent at that time. 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 Smith Congestive heart failure chronic combined systolic and diastolic EF 45% 2011 Diabetes mellitus, type 2 IDDM Dyslipidemia GERD (gastroesophageal reflux disease) Gout HX History of colon polyps History of radiation therapy 5 TX A FEW YRS AGO FOR LUNG NODULES..."MADE IT GROW MORE" History of renal calculi HTN (hypertension) Ileostomy, has currently PER PT: SWELLED UP AROUND WHERE BAG HOOKS UP "RUPTURED" NO PROBLEMS WITH FUNCTIONING , DR AWARE...POSSIBLE NEED FOR UPCOMING SX Lung cancer (07/23/20) Right Lower Lobe - Adenocarcinoma Lung nodules ? DETAILS/REASON FOR UPCOMING PROCEDURE Metastatic primary lung cancer MRSA (methicillin resistant Staphylococcus aureus) Per infection control, 02/2018: "Patient has a history of MRSA in a wound and a nasal screen in 2014. Patient requires contact precautions." Myocardial Infarction 2004 - CABG X5 VESSELS. Subsequent caths with stenting 2005 and 2006. Obesity Hobbs's syndrome On home oxygen therapy 2LPM VIA N/C AT HS PRN Physical debility Poor historian spoke with who is a good historian Secondary hyperparathyroidism Sleep apnea O2 AT NIGHT PRN Surgical History H/O lithotripsy x 2 History of bronchoscopy x3, last 02/10/22 @ [facility] Grade 1 view, MAC 3, ETT 9. History of cardiac cath 2006 PCI of LCx 2007 PCI of LAD 2011 severe [place] vessel dz and an occluded SVG to OM2 graft. All other grafts patent. History of colonoscopy History of coronary artery bypass graft X5 VESSELS AT [facility] 2004 History of esophagogastroduodenoscopy (EGD) History of surgery PROCEDURE LAST YR CARMITA - ? ENDOBRONCHIAL U/S - PT NOT SURE FINDINGS History of total colectomy for Huma's syndrome History of total hip arthroplasty RIGHT HIP -- WITH MULTIPLE REVISIONS Port-A-Cath in place (07/06/22) Access port placement with use of fluoroscopy. Status post coronary artery bypass grafting "x , 2004" Family History Father , Passed age 92 of metastatic prostate cancer No problems noted. Mother , Passed age 87 of chronic problems No problems noted. Brother , Passed age 54 of [place] Heart disease Sister Breast cancer Son No problems noted. Son No problems noted. Daughter No problems noted. Other No family history of adverse response to anesthesia Social History Smoking Status: Former smoker Tobacco Type: Cigarettes Age Started Using Tobacco: 13; Age Quit Using Tobacco: 59; packs per day: 3; Second Hand Exposure: Yes (parents smoked); Hx Alcohol Use: No Hx Substance Use: No Preferred Language: Kuwaiti Communication Ability: Effective Visual Impairment: No Limitations Hearing Ability: Normal Dog Hair Clipper Required: No Beliefs That Will Affect Care: None marital status: Current Living Situation: Spouse Current Living Situation Comment: Lives with current occupational status: retired 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 Speech and thought process appropriate. Mood and affect appropriate. Cognition intact. Head: Normocephalic and atraumatic. Patient is nontender to direct palpation over the greater or lesser occipital nerves bilaterally. Nontender over the auriculotemporal nerves bilaterally. ENT: No evidence of nasal or oral mucosal lesions. Mucous membranes are moist. Eyes: Pupils equal round reactive to light. Neck: Supple without adenopathy. Extremely limited range of motion in all planes. Complete loss of cervical lordosis. Head forward position. Patient has leftward tilt and deviation. Significant myofascial spasm and tenderness over the left sternocleidomastoid, scalene and trapezius musculature. Minimally tender throughout the mid trapezius. Patient moderately tender corresponding on the right over the sternocleidomastoid and scalene musculature. Chest: Nontender to palpation of the costosternal junction. Upper extremities: Strength testing 5/5 and equal. Sensation intact without deficit. Neurologic: Cranial nerves grossly intact. Ambulatory function not witnessed. Results (Pain Clinic) Diagnostic Review CT Findings: [place], [place] [phone] CT Scan Report Patient:Godwin CARROLL Admit Date:09/06/22 MR#:[id number] Address1:[address] [place] [address] Acct ID:[id number] Address2: Date:1945 [facility] Zip:[place] [address] Age:76 Location:3N Sex:M Room/Bed:79 Att Phy:Lukas Hinojosa MD Diagnosis:HEADACHE Hillary Phy:Sonali Flores CRNP Service Date:09/06/22 Fam Phy: Interpreting Phy:Reggie Stone MDAdmit Phy:Shravan Lowry MD Ordering Phy:Lukas Hinojosa MD cc: ~ CT SCAN OF THE CERVICAL SPINE CLINICAL HISTORY: Neck pain. Cervicalgia. COMPARISON STUDY: CT of the neck dated 04/24/2016. TECHNIQUE: CT scan of the cervical spine is performed from the skull base to the upper thoracic spine. Images are reviewed in the axial, sagittal, and coronal planes. IV contrast was not administered for this examination. A dose lowering technique was utilized adhering to the principles of ALARA. The examination is degraded by inability to properly position the patient within the CT gantry. CT DOSE: 879.49 mGycm FINDINGS: Skeletal structures: The skeletal structures are osteopenic. There is no evidence of fracture or subluxation involving the cervical spine. Vertebral body height is maintained. There is minimal anterolisthesis at C4-C5. Alignment is otherwise preserved. Small anterior osteophytes are seen throughout. There is re versal of the cervical lordosis. The odontoid process and lateral masses are intact. The atlantoaxial articulation is preserved noting mild productive degenerative change. The spinous processes appear intact. There is mild multilevel facet arthropathy. Intervertebral discs: There is moderate disc space narrowing at C3-C4. Mild disc space narrowing is seen at the remaining cervical levels. Central canal: Grossly patent. Soft tissues: The prevertebral and paraspinous soft tissues are within normal limits. There is atherosclerotic calcification of the carotid bulbs. A central venous catheter is noted at the left thoracic inlet. Calvarium: The visualized calvarium at the skull base appears intact. Brain parenchyma: Partially visualized brain parenchyma at the skull base is within normal limits. Sinuses and mastoids: The visualized paranasal sinuses are clear. The mastoid air cells are well pneumatized. Lung apices: Clear as visualized. IMPRESSION: 1. There is no evidence of fracture or subluxation involving the cervical spine. 2. Osteopenia and spondylotic change as above. ACT 112: Negative or not required by law. Electronically signed by: Reggie Stone M.D. 09/06/2022 2:40 PM Dictated:09/06/22 1435 Transcribed: 09/06/22 1435 [place], [place] [phone] CT Scan Report Patient:Godwin CARROLL Admit Date:09/06/22 MR#:[id number] Address1:[address] [place] [address] Acct ID:[id number] Address2: Date:1945 [facility] Zip:[place] [address] Age:76 Location:3N Sex:M Room/Bed:[facility] Att Phy:Lukas Hinojosa MD Diagnosis:HEADACHE Hillary Phy:Sonali Flores CRNP Service Date:09/06/22 Fam Phy: Interpreting Phy:Giovanni MontoyaAdmobi Phy:Shravan Lowry MD Ordering Phy:Lukas Hinojosa MD cc: ~ CT head/brain wo con CLINICAL HISTORY: 76 years-old Male with headache. Acute headache with neck tenderness TECHNIQUE: Multiple axial CT images of the head were obtained without contrast. A dose lowering technique was utilized adhering to the principles of ALARA. CT DOSE: 432.06 mGycm COMPARISON: None. FINDINGS: Limited exam secondary to positioning. The patient did not cooperate for the study. Unchanged ventriculomegaly with white matter hypodensities suggestive of probable chronic microvascular ischemic disease. No definite acute intracranial hemorrhage, midline shift or abnormal extra-axial collection identified. The calvarium is intact. The paranasal sinuses, mastoid air cells, and middle ear cavities are clear. IMPRESSION: This study is nearly nondiagnostic secondary to patient positioning. No acute intracranial abnormality identified on this markedly limited study. Consider repeat imaging if there is further clinical merit. ACT 112: Negative or not required by law. The above report was generated using voice recognition software. It may contain grammatical, syntax or spelling errors. Electronically signed by: Giovanni Montoya M.D. 09/06/2022 2:40 PM Dictated:09/06/22 1435 Transcribed: 09/06/22 1435
[2022-09-09 09:11] LABS: Hematocrit (blood only) 38.4 % (42.0-52.0); Hemoglobin 12.4 g/dl (14.0-18.0); Mean Corpuscular Hemoglobin 30.7 pg (25.0-34.0); Mean Corpuscular Hgb Conc 32.3 g/dL (32.0-36.0); Mean Platelet Volume 10.9 fL (9.4-12.4); Platelet Count 215 K/uL (130-400); RDW Coefficient of Variation 14.6 % (11.5-14.5); Red Blood Count 4.04 M/uL (4.70-6.10); White Blood Count 15.51 K/ul (4.8-10.8)
[2022-09-09 09:39] LABS: BUN Creatinine Ratio 41.1 (10-20); Calcium 9.5 mg/dl (8.6-10.3); Creatinine Clr Calc Pharmacy 28.6 ml/min; Est GFR (Non-African American) 24.2 ml/min; Potassium 4.2 mmol/L (3.5-5.1)
--- NOTE | 2022-09-09 09:42 | Neurology Progress Note ---
Date of Service September 09, 2022 Assessment & Plan (1) Headache: (2) Cervicalgia: (3) Hydrocephalus ex vacuo: (4) Cerebrovascular disease: Plan This patient has a headache lasting about 2 weeks on the left side of her refractory nature. It is coupled with posterior cervical spine pain and severe limitations of movement of his neck. I suspect a mechanical origin to his neck pain/headache and limitations of motion. although the patient has metastatic lung cancer, CSF analysis shows no signs of infection or carcinomatosis meningitis (cytology was negative). Lumbar puncture showed no elevated opening pressure. Narcotics have not helped his headache so far. The patient has had several MRIs in the last few months including 1 last week which showed no metastatic cancer intracerebrally. It did show mild hydrocephalus ex vacuo cerebral vascular disease. On examination the patient has no signs of upper motor neuron disease or meningeal signs. MRI of the cervical spine was attempted but failed due to patient. Recommendations: 1. See if pain management can give any injections to loosen the neck musculature and relieve pain. 2. Continue tapering prednisone course to see if this helps his headache and neck pain. 3. Consider increasing gabapentin to 400 mg 3 times a day. 4. consider increasing baclofen to 20 mg 3 times a day. overall, spent a total of 35 min with this case, including review of records, reports generation, direct evaluation the patient bedside, and discussion of the case with Dr. Callejas, including differential diagnosis and treatment options. Admission and Anticipated Discharge Date Admission Date: September 06, 2022 Subjective Patient believes that his pain is a little bit better in his left neck and head. He is able to move his head a little bit more than he was before. MRI of the cervical spine was attempted last evening the patient could not tolerate the procedure. Blood pressure is 128/73. He remains afebrile Cytology from the lumbar puncture was negative with no abnormal cells. CSF culture showed no growth to date Results & Data Vital Signs (Past 12 Hours) Vital Signs Temp Pulse Resp BP Pulse Ox O2 Del Method 09/09/22 07:57 36.8 C 71 18 128/73 95 Room Air Exam (Neuro) Physical Exam: he is awake and alert. Speech is without aphasia or dysarthria. Mood is reasonable that affect is appropriate. He is holding his head down and to the. He has a little more range of motion that he did before but is still quite restricted. No abnormal involuntary movements were noted and strength Is symmetrical in the limbs. PG Care Time/CCT Total # of Minutes Spent Total Time Spent with Patient: Total time spent is greater than 50% in coordination of care (as documented) at patient's floor/unit and/or counseling patient: Coding Level of Care Code 35139 SUB INP/OBS CARE 2/35MIN Diagnoses Headache R51.9 Cervicalgia M54.2 Hydrocephalus ex vacuo G91.8 Cerebrovascular disease I67.9 Time Spent (min) 35
[2022-09-09] MEDS: INSULIN ASPART PER UNIT CHARGE SC SCH ×4 (09:45→20:54)
[2022-09-09] MEDS: LANTUS PER UNIT CHARGE SQ SCH ×2 (09:45→21:54)
[2022-09-09] MEDS: BACLOFEN 10 MG TAB PO SCH ×2 (09:45→13:18)
--- NOTE | 2022-09-09 14:53 | Hospitalist Progress Note ---
Date of Service September 09, 2022 Assessment & Plan (1) Headache: Plan: 76 yr male with H/O metastatic lung cancer, COPD, combined systolic and diastolic CHF, insulin-requiring DM, and CAD who presented to the ED this morning with ongoing and worsening of headache over the last 10 days., now becoming so severe as to interfere with ADLs. Intractable headache Cervicalgia with Neck Stiffness Likely Cervicogenic headache --Outpatient MRI done on 09/02/22 showed No evidence of intracranial metastatic disease or acute intracranial abnormality. Finding seen in the setting of normal pressure hydrocephalus. Recommend clinical correlation. Moderate chronic small vessel ischemic disease. --Head CT:This study is nearly nondiagnostic secondary to patient positioning. No acute intracranial abnormality identified on this markedly limited study. Consider repeat imaging if there is further clinical merit. --Neck CT:There is no evidence of fracture or subluxation involving the cervical spine. Osteopenia and spondylotic change LP done is unremarkable based on fluid analysis. Protein elevated. Follow up cultures/cytology. Available results negative so far Neurologist on board Pain management evaluation noted. Pain mgt recommends botox injection outpat ient. Patient's current drowsiness/confusion likely due to meds such as baclofen started today in view of his very poor renal function/clearance Stop baclofen. Hold gabapentin for now. Once effect wears off, may use cyclobenzaprine as needed cautiously May resume gabapentin later but not to exceed 600mg/day based on current Cr 28.6 Continue tapering prednisone. Leukocytosis likely due to steroid Opioids discontinued PT/OT Avoid NSAIDs due to CKD UTI-POA Urine culture growing Enterococcus faecalis Continue ampicillin (2) Left conjunctivitis: Plan: Ofloxacin drops x 7-10 days (3) CHF (congestive heart failure): Plan: Chronic diastolic heart failure CXR:. Stable cardiomegaly. Pulmonary vascular congestion without overt pulmonary edema. Right lower lobe mass, better depicted on prior chest CT. No change in left basilar opacity likely related to a chronic pleural effusion. Continue home medications Monitor volume status (4) CKD (chronic kidney disease): Plan: Creatinine baseline ~ 2 Monitor renal function Avoid nephrotoxic agents as able Renally dose meds appropriately Cr is 2.48 today. Will hold lasix briefly for now Recheck in AM (5) COPD with emphysema: Plan: Continue inhalers No signs of acute exacerbation (6) Pulmonary hypertension: (7) Metastatic primary lung cancer: Plan: Follows with Dr. Bravo - received chemo x 1 but didn't tolerate, not planning for additonal chemo at this point (8) Sleep apnea: Plan: Wears O2 at night - 2-2.5 L (9) Diabetes mellitus, type 2: Plan: Continue basal insulin with sliding scale BSG ACHS Diabetic diet Plan Continue other home medications as appropriate DVT Px: Heparin SQ Code Status: Full code Updated who was present May likely need placement. Discussed with CM I spent a total of 55 minutes coordinating, documenting and providing care for this patient excluding time spent in performance of separately billed services Admission and Anticipated Discharge Date Admission Date: September 06, 2022 Subjective Patient seen and examined this afternoon Patient is currently very drowsy and confused He was arousable and knows his name and location but occasionally gives inappropriate answers to questions Reports some neck pain at bedside acknowledged his confusion Physical Exam Constitutional: + well hydrated; no acute distress Drowsy Eyes: PERRL, conjunctivae normal, anicteric sclerae Neck: Neck is flexed and to the left but ROM is improved today Respiratory: normal respiratory effort, lungs clear to auscultation Cardiovascular: Rate/Rhythm: regular rate and regular rhythm S1 S2 Gastrointestinal (Abdomen): normal bowel sounds, soft, nontender, no hepatosplenomegaly Musculoskeletal: Trace pedal edema with stasis changes Neurologic: PERRL, EOMI, accommodation nl, no face palsy, no dysarthria Psychiatric: Drowsy but arousable Results & Data Results & Data Vital Signs (Past 12 Hours) Vital Signs Temp Pulse Resp BP Pulse Ox O2 Del Method 09/09/22 13:54 Room Air 09/09/22 07:57 36.8 C 71 18 128/73 95 Room Air Laboratory Results Abnormal lab results 09/08/22 09/09/22 09/09/22 Range/Units 20:07 08:02 08:42 WBC 15.51 H (4.8-10.8) K/ul RBC 4.04 L (4.70-6.10) M/uL Hgb 12.4 L (14.0-18.0) g/dl Hct 38.4 L (42.0-52.0) % RDW Std Deviation 51.0 H (36.4-46.3) fL RDW Coeff of Josiah 14.6 H (11.5-14.5) % BUN (6-23) mg/dl Creatinine (0.6-1.4) mg/dl BUN/Creatinine Ratio (10-20) Glucose (70-99(Fasting)) mg/dl POC Glucose 228 H 156 H (70-99) mg/dl 09/09/22 09/09/22 09/09/22 Range/Units 08:42 12:06 17:01 WBC (4.8-10.8) K/ul RBC (4.70-6.10) M/uL Hgb (14.0-18.0) g/dl Hct (42.0-52.0) % RDW Std Deviation (36.4-46.3) fL RDW Coeff of Josiah (11.5-14.5) % BUN 101 H (6-23) mg/dl Creatinine 2.46 H D (0.6-1.4) mg/dl BUN/Creatinine Ratio 41.1 H (10-20) Glucose 149 H (70-99(Fasting)) mg/dl POC Glucose 183 H 140 H (70-99) mg/dl (3) CHF (congestive heart failure) Heart failure chronicity: acute Heart failure type: unspecified Qualified Code(s): I50.9 - Heart failure, unspecified
[2022-09-09] MEDS ORDERED: NALOXONE HCL 0.4 MG/1 ML VIAL/CARP IV STA (20:33)
[2022-09-09 20:41] LABS: Base Excess ABG -1.1 mEq/L (-9-1.8); HCO3 ABG 25 mmol/L (19-24); Oxygen Saturation ABG 95.5 % (90-95); PCO2 ABG 48 mmHg (35-46); PO2 ABG 71 mmHg (80-95); pH ABG 7.33 (7.35-7.45)
[2022-09-09 20:44] LABS: Allen Test Pos (Pos)
[2022-09-09] MEDS: SODIUM CHLORIDE 0.9% 1000ML 1,000 ML IV SCH (20:50)
[2022-09-09] MEDS: ATORVASTATIN 40 MG TAB PO SCH (20:54)
[2022-09-09] MEDS: FAMOTIDINE 20 MG TAB PO SCH (20:54)
[2022-09-09] MEDS: METOPROLOL SUCC 25MG EXT REL TAB PO SCH (20:55)
[2022-09-09] MEDS ORDERED: GABAPENTIN 400 MG CAP PO SCH (21:00)
[2022-09-09 21:11] LABS: Albumin Globulin Ratio 1.1 (0.9-2); Albumin Level 3.3 gm/dl (3.4-5.0); BUN Creatinine Ratio 41.9 (10-20); Bilirubin,Total 0.5 mg/dl (0.2-1.0); Calcium 9.1 mg/dl (8.6-10.3); Creatinine Clr Calc Pharmacy 26.4 ml/min; Est GFR (African American) 25.4 ml/min; Est GFR (Non-African American) 21.9 ml/min; Globulin 3.1 gm/dl (2.5-4.0); Magnesium 2.2 mg/dl (1.7-2.4); Phosphorus 5.1 mg/dl (2.5-4.9); Potassium 4.3 mmol/L (3.5-5.1); Total Protein 6.4 gm/dl (6.0-8.3)
[2022-09-09 21:18] LABS: Troponin I High Sensitivity 27.6 pg/ml (0-20)
[2022-09-09 21:29] LABS: Hematocrit (blood only) 38.2 % (42.0-52.0); Hemoglobin 12.4 g/dl (14.0-18.0); Mean Corpuscular Hemoglobin 31.2 pg (25.0-34.0); Mean Corpuscular Hgb Conc 32.5 g/dL (32.0-36.0); Mean Corpuscular Volume 96.2 fL (80.0-100.0); Mean Platelet Volume 11.8 fL (9.4-12.4); Platelet Count 204 K/uL (130-400); RDW Coefficient of Variation 14.4 % (11.5-14.5); RDW Standard Deviation 51.7 fL (36.4-46.3); Red Blood Count 3.97 M/uL (4.70-6.10); White Blood Count 12.46 K/ul (4.8-10.8)
--- NOTE | 2022-09-09 22:12 | CT Scan Report ---
Exam(s): CT HEAD Without Contrast EXAM: CT Head Without Intravenous Contrast CLINICAL HISTORY: Reason for exam: AMS. TECHNIQUE: Axial computed tomography images of the head/brain without intravenous contrast. CTDI is 38.39 mGy and DLP is 767.83 mGy-cm. Automated exposure control was utilized for the study. A dose lowering technique was utilized adhering to the principles of ALARA. COMPARISON: CT head 09/06/2022. FINDINGS: Artifacts: Examination is degraded by extensive patient motion. Brain: Global parenchymal volume loss with chronic microvascular ischemic changes. No hemorrhage. Ventricles: Degree of ventriculomegaly is out of proportion to degree of parenchymal volume loss. Bones/joints: Unremarkable. No acute fracture. Soft tissues: Unremarkable. Sinuses: Unremarkable as visualized. Mastoid air cells: Right mastoid effusion. IMPRESSION: 1. Examination is degraded by extensive patient motion. 2. No discrete intracranial hemorrhage on motion degraded examination. 3. Global parenchymal volume loss with chronic microvascular ischemic changes. 4. Degree of ventriculomegaly is out of proportion to degree of parenchymal volume loss. Recommend correlation for normal pressure hydrocephalus. Electronically signed by: Derick Garcia MD 09/09/22 22:11 PM
[2022-09-09 22:16] LABS: Basophils # (auto) 0.01 K/uL (0-0.2); Basophils % (auto) 0.1 %; Immature Granulocytes # (auto) 0.06 K/uL (0.01-0.20); Immature Granulocytes % (auto) 0.5 %; Lymphocytes # (auto) 0.69 K/uL (1.2-3.4); Lymphocytes % (auto) 5.5 %; Monocytes # (auto) 0.23 K/uL (0.11-0.59); Monocytes % (auto) 1.8 %; Neutrophils # (auto) 11.47 K/uL (1.40-6.50); Neutrophils % (auto) 92.1 %; Tear Drop Cells 1+; Toxic Vacuolation 1+
[2022-09-10] MEDS: AMPICILLIN 2,000 MG in SODIUM CHLOR 0.9% AD-VAN 100 ML IV SCH ×2 (05:13→18:30)
[2022-09-10] MEDS: PANTOprazole 40 MG TAB PO SCH (07:57)
[2022-09-10] MEDS: METOPROLOL SUCC 50MG EXT REL TAB PO SCH (07:57)
[2022-09-10] MEDS: predniSONE 10 MG TABLET PO SCH (07:57)
[2022-09-10] MEDS: SPIRONOLACTONE 12.5 MG TAB PO SCH (07:57)
[2022-09-10] MEDS: allopurinoL 300 MG TAB PO SCH (07:57)
[2022-09-10] MEDS: ASPIRIN 81 MG ECTAB PO SCH (07:57)
[2022-09-10] MEDS: guaiFENesin 600 MG TABCR PO SCH ×2 (07:57→21:13)
[2022-09-10] MEDS: SERTRALINE HCL 50 MG TABLET PO SCH (07:57)
[2022-09-10] MEDS: CHOLECALCIFEROL 1,000 UNITS 25 MCG TAB PO SCH (07:58)
[2022-09-10] MEDS: HEPARIN SOD 5,000 UNIT/0.5 ML VIAL SQ SCH ×2 (07:58→21:12)
[2022-09-10] MEDS: FINASTERIDE 5 MG TAB PO SCH (07:58)
[2022-09-10] MEDS: FLUTICASONE/VILANTEROL 100/25MCG 14 PUFFS/INHALER INH SCH (07:58)
[2022-09-10] MEDS: OFLOXACIN 0.3% 75 DROPS/5 ML BTL OPL SCH ×4 (08:00→21:14)
[2022-09-10] MEDS: UMECLIDINIUM BROMIDE 62.5MCG/BLISTER 7 PUFFS/INHALER INH SCH (08:00)
[2022-09-10] MEDS: SODIUM CHLORIDE 0.9% 1000ML 1,000 ML IV SCH ×2 (08:01→18:13)
[2022-09-10] MEDS: LANTUS PER UNIT CHARGE SQ SCH ×2 (10:03→21:12)
[2022-09-10] MEDS: INSULIN ASPART PER UNIT CHARGE SC SCH ×4 (10:03→21:12)
--- NOTE | 2022-09-10 10:58 | Hospitalist Progress Note ---
Date of Service September 10, 2022 Assessment & Plan (1) Headache: Plan: 76 yr male with H/O metastatic lung cancer, COPD, combined systolic and diastolic CHF, insulin-requiring DM, and CAD who presented to the ED this morning with ongoing and worsening of headache over the last 10 days., now becoming so severe as to interfere with ADLs. Intractable headache Cervicalgia with Neck Stiffness Likely Cervicogenic headache --Outpatient MRI done on 09/02/22 showed No evidence of intracranial metastatic disease or acute intracranial abnormality. Finding seen in the setting of normal pressure hydrocephalus. Recommend clinical correlation. Moderate chronic small vessel ischemic disease. --Head CT:This study is nearly nondiagnostic secondary to patient positioning. No acute intracranial abnormality identified on this markedly limited study. Consider repeat imaging if there is further clinical merit. --Neck CT:There is no evidence of fracture or subluxation involving the cervical spine. Osteopenia and spondylotic change LP done is unremarkable based on fluid analysis. Protein elevated. Follow up cultures/cytology. Available results negative so far Neurologist recommendations noted Drowsiness and confusion yesterday likely due to medication side effects in view of poor renal function. Avoid baclofen Gabapentin resumed at low dose of 100mg BID Flexeril 5mg BID Continue prednisone taper Pain management evaluation noted. Pain mgt recommends botox injection outpatient. Will plan to arrange this on discharge Giovanny Shin with pain management Leukocytosis likely due to steroid PT/OT eval noted Avoid NSAIDs due to CKD UTI-POA Urine culture growing Enterococcus faecalis Continue ampicillin (2) Left conjunctivitis: Plan: Ofloxacin drops x 7-10 days (3) CHF (congestive heart failure): Plan: Chronic diastolic heart failure CXR:. Stable cardiomegaly. Pulmonary vascular congestion without overt pulmonary edema. Right lower lobe mass, better depicted on prior chest CT. No change in left basilar opacity likely related to a chronic pleural effusion. Continue home medications Monitor volume status (4) CKD (chronic kidney disease): Plan: Creatinine baseline ~ 2 Monitor renal function Avoid nephrotoxic agents as able Renally dose meds appropriately Cr is 2.45 today. Got some IVF overnight and earlier today Bicarb, K levels are normal Continue to hold lasix for today. Reassess tomorrow Monitor renal function (5) COPD with emphysema: Plan: Continue inhalers No signs of acute exacerbation (6) Pulmonary hypertension: (7) Metastatic primary lung cancer: Plan: Follows with Dr. Bravo - received chemo x 1 but didn't tolerate, not planning for additonal chemo at this point (8) Sleep apnea: Plan: Wears O2 at night - 2-2.5 L (9) Diabetes mellitus, type 2: Plan: Continue basal insulin with sliding scale BSG ACHS Diabetic diet Plan Continue other home medications as appropriate DVT Px: Heparin SQ Code Status: Full code CM working on placement I spent a total of 50 minutes coordinating, documenting and providing care for this patient excluding time spent in performance of separately billed services Admission and Anticipated Discharge Date Admission Date: September 06, 2022 Subjective He was very drowsy throughout the day yesterday and overnight Got CT head and some labs. CT head did not show any acute abnormalities Got some fluids and naloxone Got more alert later on overnight Patient seen and examined today Patient is Awake, alert and oriented to person, place and month Not confused Eating breakfast Reports left sided neck pain and headache is improving. Denied any new symptoms today on ROS Physical Exam Constitutional: + well hydrated; no acute distress Eyes: PERRL, conjunctivae normal, anicteric sclerae Neck: Neck is flexed and to the left but improved passive ROM Respiratory: normal respiratory effort, lungs clear to auscultation Cardiovascular: Rate/Rhythm: regular rate and regular rhythm S1 S2 Gastrointestinal (Abdomen): normal bowel sounds, soft, nontender, no hepatosplenomegaly Musculoskeletal: Trace pedal edema with stasis changes Neurologic: PERRL, EOMI, accommodation nl, no face palsy, no dysarthria Results & Data Results & Data Vital Signs (Past 12 Hours) Vital Signs Temp Pulse Resp BP Pulse Ox O2 Del Method 09/10/22 07:19 36.6 C 75 18 152/67 H 96 Room Air Laboratory Results Abnormal lab results 09/09/22 09/09/22 09/09/22 Range/Units 17:01 19:49 20:21 WBC (4.8-10.8) K/ul RBC (4.70-6.10) M/uL Hgb (14.0-18.0) g/dl Hct (42.0-52.0) % RDW Std Deviation (36.4-46.3) fL Neut # (Auto) (1.40-6.50) K/uL Lymph # (Auto) (1.2-3.4) K/uL ABG pH 7.33 L (7.35-7.45) ABG pCO2 48 H (35-46) mmHg ABG pO2 71 L (80-95) mmHg ABG HCO3 25 H (19-24) mmol/L ABG O2 Saturation 95.5 H (90-95) % Sodium (136-145) mmol/L Anion Gap (3-11) BUN (6-23) mg/dl Creatinine (0.6-1.4) mg/dl BUN/Creatinine Ratio (10-20) Glucose (70-99(Fasting)) mg/dl POC Glucose 140 H 175 H (70-99) mg/dl Phosphorus (2.5-4.9) mg/dl AST (13-39) U/L ALT (7-52) U/L Alkaline Phosphatase (34-104) U/L Troponin I High Sens (0-20) pg/ml Albumin (3.4-5.0) gm/dl 09/09/22 09/09/22 09/10/22 Range/Units 20:21 20:21 08:14 WBC 12.46 H (4.8-10.8) K/ul RBC 3.97 L (4.70-6.10) M/uL Hgb 12.4 L (14.0-18.0) g/dl Hct 38.2 L (42.0-52.0) % RDW Std Deviation 51.7 H (36.4-46.3) fL Neut # (Auto) 11.47 H (1.40-6.50) K/uL Lymph # (Auto) 0.69 L (1.2-3.4) K/uL ABG pH (7.35-7.45) ABG pCO2 (35-46) mmHg ABG pO2 (80-95) mmHg ABG HCO3 (19-24) mmol/L ABG O2 Saturation (90-95) % Sodium 135 L (136-145) mmol/L Anion Gap 12 H (3-11) BUN 112 H (6-23) mg/dl Creatinine 2.67 H (0.6-1.4) mg/dl BUN/Creatinine Ratio 41.9 H (10-20) Glucose 205 H (70-99(Fasting)) mg/dl POC Glucose 135 H (70-99) mg/dl Phosphorus 5.1 H (2.5-4.9) mg/dl AST 7 L (13-39) U/L ALT 6 L (7-52) U/L Alkaline Phosphatase 112 H (34-104) U/L Troponin I High Sens 27.6 H (0-20) pg/ml Albumin 3.3 L (3.4-5.0) gm/dl 09/10/22 09/10/22 09/10/22 Range/Units 11:27 11:27 12:13 WBC 13.85 H (4.8-10.8) K/ul RBC 3.96 L (4.70-6.10) M/uL Hgb 12.2 L (14.0-18.0) g/dl Hct 38.1 L (42.0-52.0) % RDW Std Deviation 50.9 H (36.4-46.3) fL Neut # (Auto) (1.40-6.50) K/uL Lymph # (Auto) (1.2-3.4) K/uL ABG pH (7.35-7.45) ABG pCO2 (35-46) mmHg ABG pO2 (80-95) mmHg ABG HCO3 (19-24) mmol/L ABG O2 Saturation (90-95) % Sodium (136-145) mmol/L Anion Gap (3-11) BUN 112 H (6-23) mg/dl Creatinine 2.45 H (0.6-1.4) mg/dl BUN/Creatinine Ratio 45.7 H (10-20) Glucose 237 H (70-99(Fasting)) mg/dl POC Glucose 205 H (70-99) mg/dl Phosphorus (2.5-4.9) mg/dl AST (13-39) U/L ALT (7-52) U/L Alkaline Phosphatase (34-104) U/L Troponin I High Sens (0-20) pg/ml Albumin (3.4-5.0) gm/dl (3) CHF (congestive heart failure) Heart failure chronicity: acute Heart failure type: unspecified Qualified Code(s): I50.9 - Heart failure, unspecified
[2022-09-10 11:59] LABS: Hematocrit (blood only) 38.1 % (42.0-52.0); Hemoglobin 12.2 g/dl (14.0-18.0); Mean Corpuscular Hemoglobin 30.8 pg (25.0-34.0); Mean Corpuscular Volume 96.2 fL (80.0-100.0); Mean Platelet Volume 11.7 fL (9.4-12.4); Platelet Count 176 K/uL (130-400); RDW Coefficient of Variation 14.4 % (11.5-14.5); RDW Standard Deviation 50.9 fL (36.4-46.3); Red Blood Count 3.96 M/uL (4.70-6.10); White Blood Count 13.85 K/ul (4.8-10.8)
[2022-09-10 12:07] LABS: BUN Creatinine Ratio 45.7 (10-20); Calcium 8.9 mg/dl (8.6-10.3); Creatinine Clr Calc Pharmacy 28.7 ml/min; Est GFR (African American) 28.2 ml/min; Est GFR (Non-African American) 24.3 ml/min; Potassium 3.9 mmol/L (3.5-5.1)
[2022-09-10] MEDS: HEPARIN 100 UNIT/ML 5ML FLUSH FLUSH PRN (19:45)
[2022-09-10] MEDS ORDERED: CYCLOBENZAPRINE HCL 5 MG TAB PO SCH (21:00)
[2022-09-10] MEDS ORDERED: GABAPENTIN 100 MG CAP PO SCH (21:00)
[2022-09-10] MEDS: METOPROLOL SUCC 25MG EXT REL TAB PO SCH (21:13)
[2022-09-10] MEDS: ATORVASTATIN 40 MG TAB PO SCH (21:13)
[2022-09-10] MEDS: GABAPENTIN 100 MG CAP PO SCH (21:13)
[2022-09-10] MEDS: CYCLOBENZAPRINE HCL 5 MG TAB PO SCH (21:13)
[2022-09-10] MEDS: FAMOTIDINE 20 MG TAB PO SCH (21:13)
[2022-09-11] MEDS: ACETAMINOPHEN 325 MG TAB PO PRN ×3 (04:34→21:15)
[2022-09-11] MEDS: AMPICILLIN 2,000 MG in SODIUM CHLOR 0.9% AD-VAN 100 ML IV SCH ×3 (06:07→21:19)
[2022-09-11] MEDS: HEPARIN 100 UNIT/ML 5ML FLUSH FLUSH PRN ×3 (07:02→22:22)
[2022-09-11 08:11] LABS: Hematocrit (blood only) 38.2 % (42.0-52.0); Hemoglobin 12.4 g/dl (14.0-18.0); Mean Corpuscular Hemoglobin 30.8 pg (25.0-34.0); Mean Corpuscular Hgb Conc 32.5 g/dL (32.0-36.0); Mean Platelet Volume 11.3 fL (9.4-12.4); Platelet Count 176 K/uL (130-400); RDW Coefficient of Variation 14.2 % (11.5-14.5); RDW Standard Deviation 49.5 fL (36.4-46.3); Red Blood Count 4.02 M/uL (4.70-6.10); White Blood Count 11.02 K/ul (4.8-10.8)
[2022-09-11] MEDS: SPIRONOLACTONE 12.5 MG TAB PO SCH (08:12)
[2022-09-11] MEDS: PANTOprazole 40 MG TAB PO SCH (08:12)
[2022-09-11] MEDS: predniSONE 10 MG TABLET PO SCH (08:12)
[2022-09-11] MEDS: CHOLECALCIFEROL 1,000 UNITS 25 MCG TAB PO SCH (08:12)
[2022-09-11] MEDS: SERTRALINE HCL 50 MG TABLET PO SCH (08:12)
[2022-09-11] MEDS: allopurinoL 300 MG TAB PO SCH (08:12)
[2022-09-11] MEDS: UMECLIDINIUM BROMIDE 62.5MCG/BLISTER 7 PUFFS/INHALER INH SCH (08:13)
[2022-09-11] MEDS: METOPROLOL SUCC 50MG EXT REL TAB PO SCH (08:13)
[2022-09-11] MEDS: FLUTICASONE/VILANTEROL 100/25MCG 14 PUFFS/INHALER INH SCH (08:13)
[2022-09-11] MEDS: HEPARIN SOD 5,000 UNIT/0.5 ML VIAL SQ SCH ×2 (08:13→21:14)
[2022-09-11] MEDS: ASPIRIN 81 MG ECTAB PO SCH (08:13)
[2022-09-11] MEDS: guaiFENesin 600 MG TABCR PO SCH ×2 (08:14→21:15)
[2022-09-11] MEDS: CYCLOBENZAPRINE HCL 5 MG TAB PO SCH ×2 (08:14→21:16)
[2022-09-11] MEDS: GABAPENTIN 100 MG CAP PO SCH ×2 (08:14→21:15)
[2022-09-11] MEDS: OFLOXACIN 0.3% 75 DROPS/5 ML BTL OPL SCH ×4 (08:15→21:14)
[2022-09-11 08:25] LABS: Calcium 9.1 mg/dl (8.6-10.3); Creatinine Clr Calc Pharmacy 35.5 ml/min; Est GFR (African American) 36.4 ml/min; Est GFR (Non-African American) 31.4 ml/min; Magnesium 2.4 mg/dl (1.7-2.4); Phosphorus 3.9 mg/dl (2.5-4.9)
[2022-09-11] MEDS: INSULIN ASPART PER UNIT CHARGE SC SCH ×4 (09:32→21:16)
[2022-09-11] MEDS: LANTUS PER UNIT CHARGE SQ SCH ×2 (09:32→21:16)
[2022-09-11] MEDS: FINASTERIDE 5 MG TAB PO SCH (11:09)
--- NOTE | 2022-09-11 16:32 | Hospitalist Progress Note ---
Date of Service September 11, 2022 Assessment & Plan (1) Headache: Plan: 76 yr male with H/O metastatic lung cancer, COPD, combined systolic and diastolic CHF, insulin-requiring DM, and CAD who presented to the ED this morning with ongoing and worsening of headache over the last 10 days., now becoming so severe as to interfere with ADLs. Intractable headache Cervicalgia with Neck Stiffness Likely Cervicogenic headache --Outpatient MRI done on 09/02/22 showed No evidence of intracranial metastatic disease or acute intracranial abnormality. Finding seen in the setting of normal pressure hydrocephalus. Recommend clinical correlation. Moderate chronic small vessel ischemic disease. --Head CT:This study is nearly nondiagnostic secondary to patient positioning. No acute intracranial abnormality identified on this markedly limited study. Consider repeat imaging if there is further clinical merit. --Neck CT:There is no evidence of fracture or subluxation involving the cervical spine. Osteopenia and spondylotic change LP done is unremarkable based on fluid analysis. Protein elevated. Follow up cultures/cytology. Available results negative so far Neurologist recommendations noted Had drowsiness and confusion on 09/09/22 likely due to medication side effects in view of poor renal function. Avoid baclofen Gabapentin resumed at low dose of 100mg BID Flexeril 5mg BID Continue prednisone taper Pain management evaluation noted. Pain mgt recommends botox injection outpatient. Will plan to arrange this on discharge Leukocytosis improving PT/OT eval noted Avoid NSAIDs due to CKD UTI-POA Urine culture growing Enterococcus faecalis Continue ampicillin (2) Left conjunctivitis: Plan: Ofloxacin drops x 7-10 days (3) CHF (congestive heart failure): Plan: Chronic diastolic heart failure CXR:. Stable cardiomegaly. Pulmonary vascular congestion without overt pulmonary edema. Right lower lobe mass, better depicted on prior chest CT. No change in left basilar opacity likely related to a chronic pleural effusion. Continue home medications Monitor volume status (4) CKD (chronic kidney disease): Plan: Creatinine baseline ~ 2 Monitor renal function Avoid nephrotoxic agents as able Renally dose meds appropriately Cr is 1.98 today. Bicarb, K levels are normal Resume home lasix Monitor renal function (5) COPD with emphysema: Plan: Continue inhalers No signs of acute exacerbation (6) Pulmonary hypertension: (7) Metastatic primary lung cancer: Plan: Follows with Dr. Bravo - received chemo x 1 but didn't tolerate, not planning for additonal chemo at this point (8) Sleep apnea: Plan: Wears O2 at night - 2-2.5 L (9) Diabetes mellitus, type 2: Plan: Continue basal insulin with sliding scale BSG ACHS Diabetic diet Plan Continue other home medications as appropriate DVT Px: Heparin SQ Code Status: Full code CM working on placement. Will need arrangement with Pain mgt to schedule injection above prior to dc updated at bedside I spent a total of 45 minutes coordinating, documenting and providing care for this patient excluding time spent in performance of separately billed services Admission and Anticipated Discharge Date Admission Date: September 06, 2022 Subjective Patient seen and examined today Still reports left sided neck pain and headache. Denied any new complaints on ROS Physical Exam Constitutional: + well hydrated; no acute distress Eyes: PERRL, conjunctivae normal, anicteric sclerae ENMT: external ear and nose normal, oropharynx normal Neck: Neck flexed to the left Respiratory: normal respiratory effort, lungs clear to auscultation Cardiovascular: Rate/Rhythm: regular rate and regular rhythm S1 S2 Gastrointestinal (Abdomen): normal bowel sounds, soft, nontender, no hepatosplenomegaly Ostomy back in situ Musculoskeletal: Trace pedal edema with stasis changes Neurologic: PERRL, EOMI, accommodation nl, no face palsy, no dysarthria Psychiatric: Alert and oriented to person, place and time Results & Data Results & Data Vital Signs (Past 12 Hours) Vital Signs Temp Pulse Resp BP BP Pulse Ox O2 Del Method 09/11/22 08:15 Room Air 09/11/22 15:03 36.5 C 78 18 125/69 97 Room Air 09/11/22 07:54 36.7 C 65 17 147/73 H 97 Room Air Laboratory Results Abnormal lab results 09/10/22 09/10/22 09/11/22 Range/Units 17:19 20:33 07:37 WBC 11.02 H (4.8-10.8) K/ul RBC 4.02 L (4.70-6.10) M/uL Hgb 12.4 L (14.0-18.0) g/dl Hct 38.2 L (42.0-52.0) % RDW Std Deviation 49.5 H (36.4-46.3) fL BUN (6-23) mg/dl Creatinine (0.6-1.4) mg/dl BUN/Creatinine Ratio (10-20) Glucose (70-99(Fasting)) mg/dl POC Glucose 247 H 244 H (70-99) mg/dl 09/11/22 09/11/22 09/11/22 Range/Units 07:37 07:58 12:07 WBC (4.8-10.8) K/ul RBC (4.70-6.10) M/uL Hgb (14.0-18.0) g/dl Hct (42.0-52.0) % RDW Std Deviation (36.4-46.3) fL BUN 99 H (6-23) mg/dl Creatinine 1.98 H D (0.6-1.4) mg/dl BUN/Creatinine Ratio 50.0 H (10-20) Glucose 174 H (70-99(Fasting)) mg/dl POC Glucose 153 H 229 H (70-99) mg/dl (3) CHF (congestive heart failure) Heart failure chronicity: acute Heart failure type: unspecified Qualified Code(s): I50.9 - Heart failure, unspecified
[2022-09-11 19:42] LABS: CSF, LDH 19 U/L (<=25); Cryptococcal Antigen Not Detected (Not Detected); Lyme DNA PCR CSF or Synovial Not Detected (Not Detected); Lyme DNA Source CSF; Lyme IgG Band Pattern CSF DNR; Lyme IgG CSF NO BANDS DETECTED; Lyme IgM Band Pattern CSF DNR; Lyme IgM CSF NO BANDS DETECTED; Source CSF; VDRL Qualitative CSF Nonreactive (Nonreactive)
[2022-09-11] MEDS: METOPROLOL SUCC 25MG EXT REL TAB PO SCH (21:15)
[2022-09-11] MEDS: FAMOTIDINE 20 MG TAB PO SCH (21:15)
[2022-09-11] MEDS: ATORVASTATIN 40 MG TAB PO SCH (21:15)
[2022-09-12] MEDS: ACETAMINOPHEN 325 MG TAB PO PRN ×2 (06:08→10:20)
[2022-09-12] MEDS: AMPICILLIN 2,000 MG in SODIUM CHLOR 0.9% AD-VAN 100 ML IV SCH ×3 (06:14→22:33)
[2022-09-12] MEDS: HEPARIN 100 UNIT/ML 5ML FLUSH FLUSH PRN ×2 (07:27→14:14)
[2022-09-12] MEDS: predniSONE 10 MG TABLET PO SCH (09:18)
[2022-09-12] MEDS: allopurinoL 300 MG TAB PO SCH (09:18)
[2022-09-12] MEDS: HEPARIN SOD 5,000 UNIT/0.5 ML VIAL SQ SCH ×2 (09:18→20:29)
[2022-09-12] MEDS: CYCLOBENZAPRINE HCL 5 MG TAB PO SCH ×3 (09:18→20:31)
[2022-09-12] MEDS: guaiFENesin 600 MG TABCR PO SCH ×2 (09:19→20:30)
[2022-09-12] MEDS: GABAPENTIN 100 MG CAP PO SCH ×3 (09:19→20:30)
[2022-09-12] MEDS: CHOLECALCIFEROL 1,000 UNITS 25 MCG TAB PO SCH (09:19)
[2022-09-12] MEDS: SERTRALINE HCL 50 MG TABLET PO SCH (09:19)
[2022-09-12] MEDS: METOPROLOL SUCC 50MG EXT REL TAB PO SCH (09:19)
[2022-09-12] MEDS: ASPIRIN 81 MG ECTAB PO SCH (09:19)
[2022-09-12] MEDS: SPIRONOLACTONE 12.5 MG TAB PO SCH (09:19)
[2022-09-12] MEDS: PANTOprazole 40 MG TAB PO SCH (09:19)
[2022-09-12] MEDS: FINASTERIDE 5 MG TAB PO SCH (09:19)
[2022-09-12] MEDS: OFLOXACIN 0.3% 75 DROPS/5 ML BTL OPL SCH ×4 (09:20→20:29)
[2022-09-12] MEDS: UMECLIDINIUM BROMIDE 62.5MCG/BLISTER 7 PUFFS/INHALER INH SCH (09:20)
[2022-09-12] MEDS: FLUTICASONE/VILANTEROL 100/25MCG 14 PUFFS/INHALER INH SCH (09:20)
[2022-09-12] MEDS: INSULIN ASPART PER UNIT CHARGE SC SCH ×4 (09:32→20:41)
[2022-09-12] MEDS: LANTUS PER UNIT CHARGE SQ SCH ×2 (09:32→20:41)
[2022-09-12] MEDS: FUROSEMIDE 80 MG TAB PO SCH ×2 (10:21→14:14)
[2022-09-12] MEDS ORDERED: Nursing to Pharmacy Communication SCH (10:30)
[2022-09-12 10:57] LABS: Hematocrit (blood only) 39.7 % (42.0-52.0); Hemoglobin 12.9 g/dl (14.0-18.0); Mean Corpuscular Hemoglobin 31.3 pg (25.0-34.0); Mean Corpuscular Hgb Conc 32.5 g/dL (32.0-36.0); Mean Corpuscular Volume 96.4 fL (80.0-100.0); Mean Platelet Volume 11.7 fL (9.4-12.4); Platelet Count 159 K/uL (130-400); RDW Coefficient of Variation 14.3 % (11.5-14.5); RDW Standard Deviation 50.8 fL (36.4-46.3); Red Blood Count 4.12 M/uL (4.70-6.10); White Blood Count 13.01 K/ul (4.8-10.8)
[2022-09-12 11:18] LABS: BUN Creatinine Ratio 43.5 (10-20); Calcium 9.2 mg/dl (8.6-10.3); Creatinine Clr Calc Pharmacy 37.8 ml/min; Est GFR (African American) 39.3 ml/min; Est GFR (Non-African American) 33.9 ml/min; Magnesium 2.3 mg/dl (1.7-2.4); Phosphorus 2.6 mg/dl (2.5-4.9); Potassium 4.5 mmol/L (3.5-5.1)
--- NOTE | 2022-09-12 11:48 | Hospitalist Progress Note ---
Date of Service September 12, 2022 Assessment & Plan (1) Headache: Plan: 76 yr male with H/O metastatic lung cancer, COPD, combined systolic and diastolic CHF, insulin-requiring DM, and CAD who presented to the ED this morning with ongoing and worsening of headache over the last 10 days., now becoming so severe as to interfere with ADLs. 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 Finding seen in the setting of normal pressure hydrocephalus. Recommend clinical correlation. Moderate chronic small vessel ischemic disease. --Head CT:This study is nearly nondiagnostic secondary to patient positioning. No acute intracranial abnormality identified on this markedly limited study. Consider repeat imaging if there is further clinical merit. --Neck CT:There is no evidence of fracture or subluxation involving the cervical spine. Osteopenia and spondylotic change LP done is unremarkable based on fluid analysis. Protein elevated. Follow up cultures/cytology. Available results negative so far Neurologist recommendations noted Had drowsiness and confusion on 09/09/22 likely due to medication side effects in view of poor renal function. Avoid baclofen Gabapentin increased to 100mg TID Flexeril increased to 5mg TID Continue prednisone taper Pain management evaluation noted. Pain mgt recommends botox injection outpatient. Will plan to arrange this on discharge PT/OT eval noted Avoid NSAIDs due to CKD UTI-POA Urine culture growing Enterococcus faecalis Continue ampicillin to complete treatment (2) Left conjunctivitis: Plan: Ofloxacin drops x 7-10 days (3) CHF (congestive heart failure): Plan: Chronic diastolic heart failure CXR:. Stable cardiomegaly. Pulmonary vascular congestion without overt pulmonary edema. Right lower lobe mass, better depicted on prior chest CT. No change in left basilar opacity likely related to a chronic pleural effusion. Continue home medications Monitor volume status (4) CKD (chronic kidney disease): Plan: Creatinine baseline ~ 2 Monitor renal function Avoid nephrotoxic agents as able Renally dose meds appropriately Cr is 1.86 today. Bicarb, K levels are normal Continue home lasix Monitor renal function (5) COPD with emphysema: Plan: Continue inhalers No signs of acute exacerbation (6) Pulmonary hypertension: (7) Metastatic primary lung cancer: Plan: Follows with Dr. Bravo - received chemo x 1 but didn't tolerate, not planning for additonal chemo at this point (8) Sleep apnea: Plan: Wears O2 at night - 2-2.5 L (9) Diabetes mellitus, type 2: Plan: Continue basal insulin with sliding scale BSG ACHS Diabetic diet Plan Continue other home medications as appropriate DVT Px: Heparin SQ Code Status: Full code CM working on placement. Will need arrangement with Pain mgt to schedule injection above prior to dc I spent a total of 40 minutes coordinating, documenting and providing care for this patient excluding time spent in performance of separately billed services Admission and Anticipated Discharge Date Admission Date: September 06, 2022 Subjective Patient seen and examined today Still having left sided neck pain and headache. No events overnight Physical Exam Constitutional: + well hydrated; no acute distress Eyes: PERRL, conjunctivae normal, anicteric sclerae ENMT: external ear and nose normal, oropharynx normal Neck: Neck flexed to the left Respiratory: normal respiratory effort, lungs clear to auscultation Cardiovascular: Rate/Rhythm: regular rate and regular rhythm S1 S2 Gastrointestinal (Abdomen): normal bowel sounds, soft, nontender, no hepatosplenomegaly Ostomy bag in situ Musculoskeletal: Trace pedal edema with stasis changes Neurologic: PERRL, EOMI, accommodation nl, no face palsy, no dysarthria Results & Data Results & Data Vital Signs (Past 12 Hours) Vital Signs Temp Pulse Resp BP Pulse Ox O2 Del Method 09/12/22 06:56 36.3 C L 67 16 130/78 96 Room Air Laboratory Results Abnormal lab results 09/11/22 09/11/22 09/12/22 Range/Units 17:02 20:34 06:38 WBC (4.8-10.8) K/ul RBC (4.70-6.10) M/uL Hgb (14.0-18.0) g/dl Hct (42.0-52.0) % RDW Std Deviation (36.4-46.3) fL Sodium 133 L (136-145) mmol/L BUN 81 H (6-23) mg/dl Creatinine 1.86 H (0.6-1.4) mg/dl BUN/Creatinine Ratio 43.5 H (10-20) Glucose 253 H (70-99(Fasting)) mg/dl POC Glucose 261 H 254 H (70-99) mg/dl 09/12/22 09/12/22 09/12/22 Range/Units 06:38 08:00 11:58 WBC 13.01 H (4.8-10.8) K/ul RBC 4.12 L (4.70-6.10) M/uL Hgb 12.9 L (14.0-18.0) g/dl Hct 39.7 L (42.0-52.0) % RDW Std Deviation 50.8 H (36.4-46.3) fL Sodium (136-145) mmol/L BUN (6-23) mg/dl Creatinine (0.6-1.4) mg/dl BUN/Creatinine Ratio (10-20) Glucose (70-99(Fasting)) mg/dl POC Glucose 170 H 213 H (70-99) mg/dl (3) CHF (congestive heart failure) Heart failure chronicity: acute Heart failure type: unspecified Qualified Code(s): I50.9 - Heart failure, unspecified
[2022-09-12] MEDS: METOPROLOL SUCC 25MG EXT REL TAB PO SCH (20:28)
[2022-09-12] MEDS: ATORVASTATIN 40 MG TAB PO SCH (20:29)
[2022-09-12] MEDS: FAMOTIDINE 20 MG TAB PO SCH (20:31)
[2022-09-13] MEDS: AMPICILLIN 2,000 MG in SODIUM CHLOR 0.9% AD-VAN 100 ML IV SCH ×3 (06:12→21:42)
[2022-09-13] MEDS: allopurinoL 300 MG TAB PO SCH (08:13)
[2022-09-13] MEDS: CHOLECALCIFEROL 1,000 UNITS 25 MCG TAB PO SCH (08:13)
[2022-09-13] MEDS: ASPIRIN 81 MG ECTAB PO SCH (08:13)
[2022-09-13] MEDS: UMECLIDINIUM BROMIDE 62.5MCG/BLISTER 7 PUFFS/INHALER INH SCH (08:14)
[2022-09-13] MEDS: GABAPENTIN 100 MG CAP PO SCH ×3 (08:14→21:45)
[2022-09-13] MEDS: METOPROLOL SUCC 50MG EXT REL TAB PO SCH (08:14)
[2022-09-13] MEDS: PANTOprazole 40 MG TAB PO SCH (08:14)
[2022-09-13] MEDS: predniSONE 10 MG TABLET PO SCH (08:14)
[2022-09-13] MEDS: SERTRALINE HCL 50 MG TABLET PO SCH (08:14)
[2022-09-13] MEDS: SPIRONOLACTONE 12.5 MG TAB PO SCH (08:14)
[2022-09-13] MEDS: guaiFENesin 600 MG TABCR PO SCH ×2 (08:14→21:44)
[2022-09-13] MEDS: CYCLOBENZAPRINE HCL 5 MG TAB PO SCH ×3 (08:14→21:42)
[2022-09-13] MEDS: FUROSEMIDE 80 MG TAB PO SCH ×2 (08:14→12:52)
[2022-09-13] MEDS: FINASTERIDE 5 MG TAB PO SCH (08:14)
[2022-09-13] MEDS: HEPARIN SOD 5,000 UNIT/0.5 ML VIAL SQ SCH ×2 (08:15→21:42)
[2022-09-13] MEDS: FLUTICASONE/VILANTEROL 100/25MCG 14 PUFFS/INHALER INH SCH (08:15)
[2022-09-13] MEDS: OFLOXACIN 0.3% 75 DROPS/5 ML BTL OPL SCH ×2 (08:15→12:52)
[2022-09-13] MEDS: INSULIN ASPART PER UNIT CHARGE SC SCH ×4 (08:31→22:01)
[2022-09-13 08:32] LABS: Hematocrit (blood only) 38.8 % (42.0-52.0); Hemoglobin 12.9 g/dl (14.0-18.0); Mean Corpuscular Hgb Conc 33.2 g/dL (32.0-36.0); Mean Corpuscular Volume 93.3 fL (80.0-100.0); Mean Platelet Volume 12.2 fL (9.4-12.4); Platelet Count 173 K/uL (130-400); RDW Coefficient of Variation 14.4 % (11.5-14.5); RDW Standard Deviation 49.1 fL (36.4-46.3); Red Blood Count 4.16 M/uL (4.70-6.10); White Blood Count 14.91 K/ul (4.8-10.8)
[2022-09-13] MEDS: LANTUS PER UNIT CHARGE SQ SCH ×2 (08:32→22:01)
[2022-09-13 10:09] LABS: BUN Creatinine Ratio 38.6 (10-20); Creatinine Clr Calc Pharmacy 37.2 ml/min; Est GFR (African American) 38.5 ml/min; Est GFR (Non-African American) 33.2 ml/min
[2022-09-13] MEDS: ACETAMINOPHEN 325 MG TAB PO PRN ×2 (11:20→21:41)
--- NOTE | 2022-09-13 12:47 | Hospitalist Progress Note ---
Date of Service September 13, 2022 Assessment & Plan (1) Headache: Plan: 76 yr male with H/O metastatic lung cancer, COPD, combined systolic and diastolic CHF, insulin-requiring DM, and CAD who presented to the ED this morning with ongoing and worsening of headache over the last 10 days., now becoming so severe as to interfere with ADLs. 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 Finding seen in the setting of normal pressure hydrocephalus. Recommend clinical correlation. Moderate chronic small vessel ischemic disease. --Head CT:This study is nearly nondiagnostic secondary to patient positioning. No acute intracranial abnormality identified on this markedly limited study. Consider repeat imaging if there is further clinical merit. --Neck CT:There is no evidence of fracture or subluxation involving the cervical spine. Osteopenia and spondylotic change LP done is unremarkable based on fluid analysis. Protein elevated. Follow up cultures/cytology. Available results negative so far Neurologist recommendations noted Had drowsiness and confusion on 09/09/22 likely due to medication side effects in view of poor renal function. Avoid baclofen Gabapentin increased to 100mg TID Flexeril increased to 5mg TID Continue prednisone taper Pain management evaluation noted. Pain mgt recommends botox injection outpatient. Will plan to arrange this on discharge PT/OT eval noted Avoid NSAIDs due to CKD UTI-POA Urine culture growing Enterococcus faecalis Continue ampicillin to complete treatment (2) Left conjunctivitis: Plan: Ofloxacin drops resolved will discontinue (3) CHF (congestive heart failure): Plan: Chronic diastolic heart failure CXR:. Stable cardiomegaly. Pulmonary vascular congestion without overt pulmonary edema. Right lower lobe mass, better depicted on prior chest CT. No change in left basilar opacity likely related to a chronic pleural effusion. Continue home medications Monitor volume status stable (4) CKD (chronic kidney disease): Plan: Creatinine baseline ~ 2 Monitor renal function Avoid nephrotoxic agents as able Renally dose meds appropriately Cr is 1.89 today. Bicarb, K levels are normal Continue home lasix Monitor renal function (5) COPD with emphysema: Plan: Continue inhalers No signs of acute exacerbation (6) Pulmonary hypertension: (7) Metastatic primary lung cancer: Plan: Follows with Dr. Bravo - received chemo x 1 but didn't tolerate, not planning for additonal chemo at this point (8) Sleep apnea: Plan: Wears O2 at night - 2-2.5 L (9) Diabetes mellitus, type 2: Plan: Continue basal insulin with sliding scale BSG ACHS, 234, 117, continue current regimen blood sugars viewed by me Diabetic diet a1c 7.5/08/19/22 Plan Continue other home medications as appropriate DVT Px: Heparin SQ Code Status: Full code CM working on placement. Will need arrangement with Pain mgt to schedule injection above prior to dc A total of 40 minutes was spent with greater than 50% of that time personally viewing all current laboratory work and diagnostic imaging studies obtained in the ED. Additionally, I was able to view the patients past medication reconciliation and history with direct visualization in the patients chart. Included in the time above, a portion of that time was spent assessing the patient while discussing and collaborating with specialists, if necessary, and making medical decision making on treatment plan. All of the above was collaborated with Dr. Callejas. Please see addendum for further details. Admission and Anticipated Discharge Date Admission Date: September 06, 2022 Supervising Physician Co-Signing Physician Notes Patient seen and examined Continues to complain of left neck pain and headache. Reports mild intermittent improvement with flexeril and neurontin. Exam notable for neck flexed and to the left Continue current regimen. CM working on placement before Pain management's outpatient plan for botox injection can be scheduled Agree with other plans as detailed by Vanda Mendez PA-C Subjective Patient was seen and examined in room 379-2. Follow-up cervical dystonia. He continues to complain of headache and neck pain. Denies fever, chills, sweats, lightheadedness, dizziness, chest pain, shortness of breath, nausea, vomit, abdominal pain. Tolerating diet. Review of Systems Review of Systems: All systems reviewed & are unremarkable except as noted in HPI & below Physical Exam Physical Exam: Gen: WD/WN, elderly, male, NAD, A&O x3 HEENT: Normocephalic, atraumatic, left torticollis, conjunctivae moist, sclerae anicteric, mucous membranes moist. Lung: Clear to Auscultation bilaterally, no wheezes/rales/rhonchi Heart: Regular rate, regular rhythm, no murmurs, rubs, or gallops Abdomen: Soft, NT, ND +BS x 4 Extremities: Bilateral venous stasis changes, no active cellulitis, no wounds, trace edema Skin: Warm, no rash, negative turgor. Results & Data Results & Data Vital Signs (Past 12 Hours) Vital Signs Temp Pulse Resp BP Pulse Ox O2 Del Method 09/13/22 09:24 Room Air 09/13/22 07:55 36.8 C 75 16 129/71 98 Room Air Laboratory Results Short CBC 09/13/22 Range/Units 08:07 WBC 14.91 H (4.8-10.8) K/ul Hgb 12.9 L (14.0-18.0) g/dl Hct 38.8 L (42.0-52.0) % Plt Count 173 (130-400) K/uL BMP 09/13/22 08:07 Sodium 135 L Potassium 4.0 Chloride 103 Carbon Dioxide 25 BUN 73 H Creatinine 1.89 H Glucose 117 H Calcium 9.0 Medications Administered Current Inpatient Medications Acetaminophen (Acetaminophen 325 Mg Tab) 650 mg PO Q4H PRN PRN Reason: pain Stop: 10/05/22 10:24 Last Admin: 09/13/22 11:20 Dose: 650 mg Albuterol (Albuterol 0.083% Nebu Soln 3 Ml Vial) 2.5 mg INH Q4 PRN; Protocol PRN Reason: cough,SOB Stop: 10/05/22 11:17 Albuterol (Albut/Ipratrop 3mg/0.5mg Neb 3 Ml Vial) 3 ml INH Q4H PRN; Protocol PRN Reason: cough,SOB Stop: 10/05/22 11:17 Last Admin: 09/05/22 21:50 Dose: 3 ml Albuterol (Albuterol Hfa 8 Gm Inhaler) 2 puffs INH QID PRN PRN Reason: Shortness Of Breath Stop: 10/05/22 11:17 Allopurinol ([facility]ol 300 Mg Tab) [facility]: 10/06/22 08:59 Last Admin: 09/13/22 08:13 Dose: 300 mg Aspirin (Aspirin 81 Mg Ectab) [facility] [place] Stop: 10/06/22 08:59 Last Admin: 09/13/22 08:13 Dose: 81 mg Atorvastatin Calcium (Atorvastatin 40 Mg Tab) 40 mg PO HS [facility] Stop: 10/05/22 20:59 Last Admin: 09/12/22 20:29 Dose: 40 mg Cyclobenzaprine HCl (Cyclobenzaprine Hcl 5 Mg Tab) 5 mg PO TID [facility] Stop: 10/12/22 08:59 Last Admin: 09/13/22 08:14 Dose: 5 mg Dextrose (Dextrose 50% 50 Ml Syringe) 25 - 50 ml IV UD PRN; Protocol PRN Reason: Hypoglycemia Protocol Stop: 10/05/22 10:51 Famotidine (Famotidine 20 Mg Tab) 20 mg PO HS [facility] Stop: 10/05/22 20:59 Last Admin: 09/12/22 20:31 Dose: 20 mg Finasteride (Finasteride 5 Mg Tab) 5 mg PO QAM [facility] Stop: 10/06/22 08:59 Last Admin: 09/13/22 08:14 Dose: 5 mg Fluticasone/Vilanterol (Fluticasone/Vilanterol 100/25mcg 14 Puffs/Inhaler) 1 puffs INH DAILY [facility] Stop: 10/06/22 08:59 Last Admin: 09/13/22 08:15 Dose: 1 puffs Furosemide (Furosemide 80 Mg Tab) 80 mg PO BID@0900,1200 [facility] Stop: 10/08/22 08:59 Last Admin: 09/13/22 08:14 Dose: 80 mg Gabapentin (Gabapentin 100 Mg Cap) 100 mg PO TID [facility] Stop: 10/12/22 08:59 Last Admin: 09/13/22 08:14 Dose: 100 mg Glucagon (Glucagon For Inj 1 Mg Vial) 1 mg SQ UD PRN; Protocol PRN Reason: Hypoglycemia Protocol Stop: 10/05/22 10:51 Glucose (Glucose 10 Tab/Tube) 4 - 8 tab PO UD PRN; Protocol PRN Reason: Hypoglycemia Treatment Stop: 10/05/22 10:51 Glucose (Glucose 40% Gel 15 Gm Tube) 15 - 30 gm PO UD PRN; Protocol PRN Reason: Hypoglycemia Protocol Stop: 10/05/22 10:51 Guaifenesin (Guaifenesin 600 Mg Tabcr) 600 mg PO AMHS [facility] Stop: 10/05/22 20:59 Last Admin: 09/13/22 08:14 Dose: 600 mg Heparin Sodium (Porcine) (Heparin Sod 5,000 Unit/0.5 Ml Vial) 5,000 units SQ Q12 [facility] Stop: 10/05/22 20:59 Last Admin: 09/13/22 08:15 Dose: 5,000 units Heparin Sodium (Porcine) (Heparin 100 Unit/Ml 5ml Flush) 5 ml FLUSH PRN PRN PRN Reason: Flush Stop: 10/06/22 08:11 Last Admin: 09/12/22 14:14 Dose: 5 ml Hydroxyzine HCl (Hydroxyzine Hcl 25 Mg Tab) 25 mg PO TID PRN PRN Reason: Anxiety Stop: 10/05/22 11:17 Last Admin: 09/08/22 20:15 Dose: 25 mg Ampicillin Sodium 2,000 mg/ (Sodium Chloride) 100 mls @ 200 mls/hr IV Q8H [facility]; Protocol Stop: 09/19/22 17:59 Last Infusion: 09/13/22 06:47 Dose: Infused Insulin Aspart (Insulin Aspart Per Unit Charge) 0 units SC ACHS [facility] Stop: 10/05/22 11:29 Last Admin: 09/13/22 08:31 Dose: 9 units Insulin Glargine (Lantus Per Unit Charge) 15 units SQ BID [facility] Stop: 10/05/22 20:59 Last Admin: 09/13/22 08:32 Dose: 15 units Loperamide HCl (Loperamide Hcl 2 Mg Cap) 2 mg PO QID PRN PRN Reason: Diarrhea Stop: 10/05/22 11:25 Metolazone (Metolazone 5 Mg Tablet) 5 mg PO DAILY PRN PRN Reason: WEIGHT GAIN >3LBS Stop: 10/07/22 10:59 Metoprolol Succinate (Metoprolol Succ 50mg Ext Rel Tab) 50 mg PO QAM [facility] Stop: 10/05/22 11:17 Last Admin: 09/13/22 08:14 Dose: 50 mg Metoprolol Succinate (Metoprolol Succ 25mg Ext Rel Tab) 25 mg PO QPM [facility] Stop: 10/05/22 20:59 Last Admin: 09/12/22 20:28 Dose: 25 mg Miscellaneous (Carbohydrates For Hypoglycemia ) 15 - 30 gm PO UD PRN PRN Reason: Hypoglycemia Protocol Stop: 10/05/22 10:51 Ofloxacin (Ofloxacin 0.3% 75 Drops/5 Ml Btl) 2 drops OPL QID [facility] Stop: 09/15/22 12:59 Last Admin: 09/13/22 08:15 Dose: 2 drops Pantoprazole Sodium (Pantoprazole 40 Mg Tab) 40 mg PO QAM [facility] Stop: 10/06/22 08:59 Last Admin: 09/13/22 08:14 Dose: 40 mg Prednisone (Prednisone 10 Mg Tablet) 10 mg PO DAILY [facility]; Taper Stop: 09/13/22 13:44 Last Admin: 09/13/22 08:14 Dose: 10 mg Promethazine HCl (Promethazine Hcl 25 Mg Tab) 25 mg PO Q6H PRN PRN Reason: NAUSEA/VOMITING Stop: 10/05/22 11:17 Sertraline HCl (Sertraline Hcl 50 Mg Tablet) 50 mg PO [facility] Stop: 10/06/22 08:59 Last Admin: 09/13/22 08:14 Dose: 50 mg Spironolactone (Spironolactone 12.5 Mg Tab) 12.5 mg PO [facility] Stop: 10/06/22 08:59 Last Admin: 09/13/22 08:14 Dose: 12.5 mg Umeclidinium [place] (Umeclidinium [place] 62.5mcg/Blister 7 Puffs/Inhaler) 1 puffs INH DAILY [facility] Stop: 10/06/22 08:59 Last Admin: 09/13/22 08:14 Dose: 1 puffs Vitamin D (Cholecalciferol 1,000 Units 25 Mcg Tab) 2,[facility] [place]: 10/06/22 08:59 Last Admin: 09/13/22 08:13 Dose: 2,000 units (3) CHF (congestive heart failure) Heart failure chronicity: acute Heart failure type: unspecified Qualified Code(s): I50.9 - Heart failure, unspecified
[2022-09-13] MEDS: METOPROLOL SUCC 25MG EXT REL TAB PO SCH (21:43)
[2022-09-13] MEDS: FAMOTIDINE 20 MG TAB PO SCH (21:44)
[2022-09-13] MEDS: ATORVASTATIN 40 MG TAB PO SCH (21:44)
[2022-09-14] MEDS: AMPICILLIN 2,000 MG in SODIUM CHLOR 0.9% AD-VAN 100 ML IV SCH ×3 (05:57→21:47)
[2022-09-14] MEDS: ACETAMINOPHEN 325 MG TAB PO PRN ×4 (08:48→22:03)
[2022-09-14] MEDS: SPIRONOLACTONE 12.5 MG TAB PO SCH (09:35)
[2022-09-14] MEDS: METOPROLOL SUCC 50MG EXT REL TAB PO SCH (09:35)
[2022-09-14] MEDS: GABAPENTIN 100 MG CAP PO SCH ×3 (09:35→21:46)
[2022-09-14] MEDS: SERTRALINE HCL 50 MG TABLET PO SCH (09:35)
[2022-09-14] MEDS: guaiFENesin 600 MG TABCR PO SCH ×2 (09:35→21:45)
[2022-09-14] MEDS: PANTOprazole 40 MG TAB PO SCH (09:35)
[2022-09-14] MEDS: FINASTERIDE 5 MG TAB PO SCH (09:36)
[2022-09-14] MEDS: CHOLECALCIFEROL 1,000 UNITS 25 MCG TAB PO SCH (09:36)
[2022-09-14] MEDS: FUROSEMIDE 80 MG TAB PO SCH ×2 (09:36→12:42)
[2022-09-14] MEDS: CYCLOBENZAPRINE HCL 5 MG TAB PO SCH ×3 (09:36→21:45)
[2022-09-14] MEDS: HEPARIN SOD 5,000 UNIT/0.5 ML VIAL SQ SCH ×2 (09:37→21:46)
[2022-09-14] MEDS: allopurinoL 300 MG TAB PO SCH (09:37)
[2022-09-14] MEDS: ASPIRIN 81 MG ECTAB PO SCH (09:37)
[2022-09-14] MEDS: LANTUS PER UNIT CHARGE SQ SCH ×2 (09:48→22:19)
[2022-09-14] MEDS: INSULIN ASPART PER UNIT CHARGE SC SCH ×4 (09:48→22:19)
[2022-09-14 11:05] LABS: Hematocrit (blood only) 41.1 % (42.0-52.0); Hemoglobin 13.6 g/dl (14.0-18.0); Mean Corpuscular Hgb Conc 33.1 g/dL (32.0-36.0); Mean Corpuscular Volume 93.6 fL (80.0-100.0); Mean Platelet Volume 12.6 fL (9.4-12.4); Platelet Count 176 K/uL (130-400); RDW Coefficient of Variation 14.3 % (11.5-14.5); RDW Standard Deviation 49.4 fL (36.4-46.3); Red Blood Count 4.39 M/uL (4.70-6.10); White Blood Count 15.55 K/ul (4.8-10.8)
[2022-09-14 11:24] LABS: BUN Creatinine Ratio 39.4 (10-20); Calcium 9.1 mg/dl (8.6-10.3); Creatinine Clr Calc Pharmacy 35.5 ml/min; Est GFR (African American) 36.4 ml/min; Est GFR (Non-African American) 31.4 ml/min
[2022-09-14 11:33] LABS: Potassium 3.9 mmol/L (3.5-5.1)
[2022-09-14] MEDS: FLUTICASONE/VILANTEROL 100/25MCG 14 PUFFS/INHALER INH SCH (14:08)
[2022-09-14] MEDS: UMECLIDINIUM BROMIDE 62.5MCG/BLISTER 7 PUFFS/INHALER INH SCH (14:08)
--- NOTE | 2022-09-14 14:54 | Hospitalist Progress Note ---
Date of Service September 14, 2022 Assessment & Plan (1) Headache: Plan: 76 yr male with H/O metastatic lung cancer, COPD, combined systolic and diastolic CHF, insulin-requiring DM, and CAD who presented to the ED this morning with ongoing and worsening of headache over the last 10 days., now becoming so severe as to interfere with ADLs. 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 Finding seen in the setting of normal pressure hydrocephalus. Recommend clinical correlation. Moderate chronic small vessel ischemic disease. --Head CT:This study is nearly nondiagnostic secondary to patient positioning. No acute intracranial abnormality identified on this markedly limited study. Consider repeat imaging if there is further clinical merit. --Neck CT:There is no evidence of fracture or subluxation involving the cervical spine. Osteopenia and spondylotic change LP done is unremarkable based on fluid analysis. Protein elevated. Follow up cultures/cytology. Available results negative so far Neurologist recommendations noted Had drowsiness and confusion on 09/09/22 likely due to medication side effects in view of poor renal function. Avoid baclofen Gabapentin increased to 200mg TID Flexeril increased to 5mg TID Continue prednisone taper Pain management evaluation noted. Pain mgt recommends botox injection outpatient. Will plan to arrange this on discharge PT/OT eval noted Avoid NSAIDs due to CKD UTI-POA Urine culture growing Enterococcus faecalis Continue ampicillin to complete treatment (2) Left conjunctivitis: Plan: tx complete (3) CHF (congestive heart failure): Plan: Chronic diastolic heart failure CXR:. Stable cardiomegaly. Pulmonary vascular congestion without overt pulmonary edema. Right lower lobe mass, better depicted on prior chest CT. No change in left basilar opacity likely related to a chronic pleural effusion. Continue home medications Monitor volume status stable (4) CKD (chronic kidney disease): Plan: Creatinine baseline ~ 2 Monitor renal function Avoid nephrotoxic agents as able Renally dose meds appropriately Cr is 1.98 today. Bicarb, K levels are normal Continue home lasix Monitor renal function (5) COPD with emphysema: Plan: Continue inhalers No signs of acute exacerbation (6) Pulmonary hypertension: (7) Metastatic primary lung cancer: Plan: Follows with Dr. Bravo - received chemo x 1 but didn't tolerate, not planning for additonal chemo at this point (8) Sleep apnea: Plan: Wears O2 at night - 2-2.5 L (9) Diabetes mellitus, type 2: Plan: Continue basal insulin with sliding scale BSG ACHS, 1782, 105 continue current regimen blood sugars viewed by me Diabetic diet a1c 7.5/08/19/22 Plan Continue other home medications as appropriate DVT Px: Heparin SQ Code Status: Full code CM working on placement. Will need arrangement with Pain mgt to schedule injection above prior to dc. A total of 35 minutes was spent with greater than 50% of that time personally viewing all current laboratory work and diagnostic imaging studies obtained in the ED. Additionally, I was able to view the patients past medication reconcilia tion and history with direct visualization in the patients chart. Included in the time above, a portion of that time was spent assessing the patient while discussing and collaborating with specialists, if necessary, and making medical decision making on treatment plan. All of the above was collaborated with Dr. Callejas. Please see addendum for further details. Admission and Anticipated Discharge Date Admission Date: September 06, 2022 Supervising Physician Co-Signing Physician Notes Patient seen and examined Continues to complain of left neck pain and headache. Reports mild intermittent improvement with flexeril and neurontin. Exam notable for neck flexed and to the left Increase gabapentin to 200mg TID Continue flexeril. Persistent leukocytosis may be due to completed prednisone taper. LP labs are all negative so far CM working on placement before Pain management's outpatient plan for botox injection can be scheduled Agree with other plans as detailed by Vanda Mendez PA-C Subjective Patient was seen and examined in room 379-2. Follow-up cervical dystonia. Still has headache, but feels slight increase in neck mobility. Denies f/c/s, chest pain, sob, n/v/d, abd pain. appetite stable. Awaiting placement. Review of Systems Review of Systems: All systems reviewed & are unremarkable except as noted in HPI & below Physical Exam Physical Exam: Gen: WD/WN, elderly, male, NAD, A&O x3 HEENT: Normocephalic, atraumatic, left torticollis, conjunctivae moist, sclerae anicteric, mucous membranes moist. Lung: Clear to Auscultation bilaterally, no wheezes/rales/rhonchi Heart: Regular rate, regular rhythm, no murmurs, rubs, or gallops Abdomen: Soft, NT, ND +BS x 4 Extremities: Bilateral venous stasis changes, no active cellulitis, no wounds, trace edema Skin: Warm, no rash, negative turgor. Results & Data Results & Data Vital Signs (Past 12 Hours) Vital Signs Temp Pulse Resp BP Pulse Ox O2 Del Method 09/14/22 07:50 36.4 C L 76 18 143/72 H 95 Room Air Laboratory Results Short CBC 09/14/22 Range/Units 10:06 WBC 15.55 H (4.8-10.8) K/ul Hgb 13.6 L (14.0-18.0) g/dl Hct 41.1 L (42.0-52.0) % Plt Count 176 (130-400) K/uL BMP 09/14/22 10:06 Sodium 132 L Potassium 3.9 Chloride 99 Carbon Dioxide 26 BUN 78 H Creatinine 1.98 H Glucose 215 H Calcium 9.1 Medications Administered Current Inpatient Medications Acetaminophen (Acetaminophen 325 Mg Tab) 650 mg PO Q4H PRN PRN Reason: pain Stop: 10/05/22 10:24 Last Admin: 09/14/22 13:04 Dose: 650 mg Albuterol (Albuterol 0.083% Nebu Soln 3 Ml Vial) 2.5 mg INH Q4 PRN; Protocol PRN Reason: cough,SOB Stop: 10/05/22 11:17 Albuterol (Albut/Ipratrop 3mg/0.5mg Neb 3 Ml Vial) 3 ml INH Q4H PRN; Protocol PRN Reason: cough,SOB Stop: 10/05/22 11:17 Last Admin: 09/05/22 21:50 Dose: 3 ml Albuterol (Albuterol Hfa 8 Gm Inhaler) 2 puffs INH QID PRN PRN Reason: Shortness Of Breath Stop: 10/05/22 11:17 Allopurinol ([facility]ol 300 Mg Tab) [facility] [place] Stop: 10/06/22 08:59 Last Admin: 09/14/22 09:37 Dose: 300 mg Aspirin (Aspirin 81 Mg Ectab) [facility] [place] Stop: 10/06/22 08:59 Last Admin: 09/14/22 09:37 Dose: 81 mg Atorvastatin Calcium (Atorvastatin 40 Mg Tab) 40 mg PO HS [facility] Stop: 10/05/22 20:59 Last Admin: 09/13/22 21:44 Dose: 40 mg Cyclobenzaprine HCl (Cyclobenzaprine Hcl 5 Mg Tab) 5 mg PO TID [facility] Stop: 10/12/22 08:59 Last Admin: 09/14/22 14:11 Dose: 5 mg Dextrose (Dextrose 50% 50 Ml Syringe) 25 - 50 ml IV UD PRN; Protocol PRN Reason: Hypoglycemia Protocol Stop: 10/05/22 10:51 Famotidine (Famotidine 20 Mg Tab) 20 mg PO HS [facility] Stop: 10/05/22 20:59 Last Admin: 09/13/22 21:44 Dose: 20 mg Finasteride (Finasteride 5 Mg Tab) 5 mg PO QAM [facility] Stop: 10/06/22 08:59 Last Admin: 09/14/22 09:36 Dose: 5 mg Fluticasone/Vilanterol (Fluticasone/Vilanterol 100/25mcg 14 Puffs/Inhaler) 1 puffs INH DAILY [facility] Stop: 10/06/22 08:59 Last Admin: 09/14/22 14:08 Dose: 1 puffs Furosemide (Furosemide 80 Mg Tab) 80 mg PO BID@0900,1200 [facility] Stop: 10/08/22 08:59 Last Admin: 09/14/22 12:42 Dose: 80 mg Gabapentin (Gabapentin 100 Mg Cap) 100 mg PO TID [facility] Stop: 10/12/22 08:59 Last Admin: 09/14/22 14:12 Dose: 100 mg Glucagon (Glucagon For Inj 1 Mg Vial) 1 mg SQ UD PRN; Protocol PRN Reason: Hypoglycemia Protocol Stop: 10/05/22 10:51 Glucose (Glucose 10 Tab/Tube) 4 - 8 tab PO UD PRN; Protocol PRN Reason: Hypoglycemia Treatment Stop: 10/05/22 10:51 Glucose (Glucose 40% Gel 15 Gm Tube) 15 - 30 gm PO UD PRN; Protocol PRN Reason: Hypoglycemia Protocol Stop: 10/05/22 10:51 Guaifenesin (Guaifenesin 600 Mg Tabcr) 600 mg PO [facility] Stop: 10/05/22 20:59 Last Admin: 09/14/22 09:35 Dose: 600 mg Heparin Sodium (Porcine) (Heparin Sod 5,000 Unit/0.5 Ml Vial) 5,000 units SQ Q12 [facility] Stop: 10/05/22 20:59 Last Admin: 09/14/22 09:37 Dose: 5,000 units Heparin Sodium (Porcine) (Heparin 100 Unit/Ml 5ml Flush) 5 ml FLUSH PRN PRN PRN Reason: Flush Stop: 10/06/22 08:11 Last Admin: 09/12/22 14:14 Dose: 5 ml Hydroxyzine HCl (Hydroxyzine Hcl 25 Mg Tab) 25 mg PO TID PRN PRN Reason: Anxiety Stop: 10/05/22 11:17 Last Admin: 09/08/22 20:15 Dose: 25 mg Ampicillin Sodium 2,000 mg/ (Sodium Chloride) 100 mls @ 200 mls/hr IV Q8H [facility]; Protocol Stop: 09/19/22 17:59 Last Infusion: 09/14/22 14:09 Dose: Infused Insulin Aspart (Insulin Aspart Per Unit Charge) 0 units SC ACHS [facility] Stop: 10/05/22 11:29 Last Admin: 09/14/22 12:58 Dose: 9 units Insulin Glargine (Lantus Per Unit Charge) 15 units SQ BID [facility] Stop: 10/05/22 20:59 Last Admin: 09/14/22 09:48 Dose: 15 units Loperamide HCl (Loperamide Hcl 2 Mg Cap) 2 mg PO QID PRN PRN Reason: Diarrhea Stop: 10/05/22 11:25 Metolazone (Metolazone 5 Mg Tablet) 5 mg PO DAILY PRN PRN Reason: WEIGHT GAIN >3LBS Stop: 10/07/22 10:59 Metoprolol Succinate (Metoprolol Succ 50mg Ext Rel Tab) 50 mg PO QAM [facility] Stop: 10/05/22 11:17 Last Admin: 09/14/22 09:35 Dose: 50 mg Metoprolol Succinate (Metoprolol Succ 25mg Ext Rel Tab) 25 mg PO QPM [facility] Stop: 10/05/22 20:59 Last Admin: 09/13/22 21:43 Dose: 25 mg Miscellaneous (Carbohydrates For Hypoglycemia ) 15 - 30 gm PO UD PRN PRN Reason: Hypoglycemia Protocol Stop: 10/05/22 10:51 Pantoprazole Sodium (Pantoprazole 40 Mg Tab) 40 mg PO QAM [facility] Stop: 10/06/22 08:59 Last Admin: 09/14/22 09:35 Dose: 40 mg Promethazine HCl (Promethazine Hcl 25 Mg Tab) 25 mg PO Q6H PRN PRN Reason: NAUSEA/VOMITING Stop: 10/05/22 11:17 Sertraline HCl (Sertraline Hcl 50 Mg Tablet) [facility] [place] Stop: 10/06/22 08:59 Last Admin: 09/14/22 09:35 Dose: 50 mg Spironolactone (Spironolactone 12.5 Mg Tab) 12.5 mg [facility] [place] Stop: 10/06/22 08:59 Last Admin: 09/14/22 09:35 Dose: 12.5 mg Umeclidinium [place] (Umeclidinium [place] 62.5mcg/Blister 7 Puffs/Inhaler) 1 puffs INH DAILY [facility] Stop: 10/06/22 08:59 Last Admin: 09/14/22 14:08 Dose: 1 puffs Vitamin D (Cholecalciferol 1,000 Units 25 Mcg Tab) 2,000 units PO QAM [facility] Stop: 10/06/22 08:59 Last Admin: 09/14/22 09:36 Dose: 2,000 units (3) CHF (congestive heart failure) Heart failure chronicity: acute Heart failure type: unspecified Qualified Code(s): I50.9 - Heart failure, unspecified
[2022-09-14] MEDS: ATORVASTATIN 40 MG TAB PO SCH (21:46)
[2022-09-14] MEDS: FAMOTIDINE 20 MG TAB PO SCH (21:46)
[2022-09-14] MEDS: METOPROLOL SUCC 25MG EXT REL TAB PO SCH (22:01)
[2022-09-15] MEDS: AMPICILLIN 2,000 MG in SODIUM CHLOR 0.9% AD-VAN 100 ML IV SCH ×2 (05:51→13:51)
[2022-09-15 07:13] LABS: Hematocrit (blood only) 40.1 % (42.0-52.0); Hemoglobin 13.4 g/dl (14.0-18.0); Mean Corpuscular Hgb Conc 33.4 g/dL (32.0-36.0); Mean Corpuscular Volume 92.8 fL (80.0-100.0); Mean Platelet Volume 12.3 fL (9.4-12.4); Platelet Count 182 K/uL (130-400); RDW Coefficient of Variation 14.4 % (11.5-14.5); RDW Standard Deviation 49.2 fL (36.4-46.3); Red Blood Count 4.32 M/uL (4.70-6.10)
[2022-09-15 07:21] LABS: BUN Creatinine Ratio 38.9 (10-20); Calcium 8.9 mg/dl (8.6-10.3); Creatinine Clr Calc Pharmacy 34.7 ml/min; Est GFR (African American) 35.3 ml/min; Est GFR (Non-African American) 30.5 ml/min; Potassium 3.8 mmol/L (3.5-5.1)
[2022-09-15] MEDS: guaiFENesin 600 MG TABCR PO SCH ×2 (08:45→20:42)
[2022-09-15] MEDS: FUROSEMIDE 80 MG TAB PO SCH ×2 (08:45→13:04)
[2022-09-15] MEDS: GABAPENTIN 100 MG CAP PO SCH ×2 (08:45→13:49)
[2022-09-15] MEDS: SPIRONOLACTONE 12.5 MG TAB PO SCH (08:46)
[2022-09-15] MEDS: CYCLOBENZAPRINE HCL 5 MG TAB PO SCH ×2 (08:46→13:49)
[2022-09-15] MEDS: FINASTERIDE 5 MG TAB PO SCH (08:46)
[2022-09-15] MEDS: allopurinoL 300 MG TAB PO SCH (08:46)
[2022-09-15] MEDS: SERTRALINE HCL 50 MG TABLET PO SCH (08:47)
[2022-09-15] MEDS: PANTOprazole 40 MG TAB PO SCH (08:47)
[2022-09-15] MEDS: METOPROLOL SUCC 50MG EXT REL TAB PO SCH (08:47)
[2022-09-15] MEDS: ASPIRIN 81 MG ECTAB PO SCH (08:48)
[2022-09-15] MEDS: CHOLECALCIFEROL 1,000 UNITS 25 MCG TAB PO SCH (08:48)
[2022-09-15] MEDS: HEPARIN SOD 5,000 UNIT/0.5 ML VIAL SQ SCH ×2 (08:49→20:45)
[2022-09-15] MEDS: FLUTICASONE/VILANTEROL 100/25MCG 14 PUFFS/INHALER INH SCH (08:52)
[2022-09-15] MEDS: UMECLIDINIUM BROMIDE 62.5MCG/BLISTER 7 PUFFS/INHALER INH SCH (08:52)
[2022-09-15] MEDS: ACETAMINOPHEN 325 MG TAB PO PRN ×2 (08:57→13:04)
[2022-09-15] MEDS: LANTUS PER UNIT CHARGE SQ SCH ×2 (09:05→20:40)
[2022-09-15] MEDS: INSULIN ASPART PER UNIT CHARGE SC SCH ×4 (09:05→20:39)
[2022-09-15] MEDS: HEPARIN 100 UNIT/ML 5ML FLUSH FLUSH PRN (14:30)
[2022-09-15] MEDS ORDERED: ACETAMINOPHEN 500 MG TAB PO SCH (14:30)
[2022-09-15] MEDS ORDERED: clonazePAM 0.5 MG TAB PO STA (16:53)
[2022-09-15] MEDS ORDERED: CYCLOBENZAPRINE HCL 5 MG TAB PO PRN (16:59)
--- NOTE | 2022-09-15 18:08 | Hospitalist Progress Note ---
Date of Service September 15, 2022 Assessment & Plan (1) Headache: Plan: This is a 76 yr male with H/O metastatic lung cancer, COPD, combined systolic and diastolic CHF, insulin-requiring DM, and CAD who presented to the ED this morning with ongoing and worsening of headache over the last 10 days, now becoming so severe as to interfere with ADLs. Intractable headache Cervicalgia with Neck Stiffness Per neuro, Cervicogenic headache, Cervical dystonia --Outpatient MRI done on 09/02/22 showed No evidence of intracranial metastatic disease or acute intracranial abnormality. Finding seen in the setting of normal pressure hydrocephalus. Recommend clinical correlation. Moderate chronic small vessel ischemic disease. --Head CT:This study is nearly nondiagnostic secondary to patient positioning. No acute intracranial abnormality identified on this markedly limited study. Consider repeat imaging if there is further clinical merit. --Neck CT:There is no evidence of fracture or subluxation involving the cervical spine. Osteopenia and spondylotic change LP done and is unremarkable based on fluid analysis. Protein elevated, pressure WNL Neurologist recommendations noted -Had drowsiness and confusion on 09/09/22 likely due to medication side effects in view of poor renal function and baclofen was discontinued Regimen adjusted today due to worsening but similar pain - started on Klonopin 0.5mg TID, scheduled Tylenol 1,000mg TID, transitioned Flexeril to PRN, discontinued gabapentin Pain mgmt evaluated- recommends botox injection but can only be done as outpatient. Discussed case again today given worsening pain and they will e valuate tomorrow, possibility of trigger injections for pain control until patient is placed Avoid NSAIDs due to CKD UTI Present on arrival Urine culture growing Enterococcus faecalis Completed ampicillin treatment (2) Left conjunctivitis: Plan: tx complete (3) CHF (congestive heart failure): Plan: Chronic diastolic heart failure CXR:. Stable cardiomegaly. Pulmonary vascular congestion without overt pulmonary edema. Right lower lobe mass, better depicted on prior chest CT. No change in left basilar opacity likely related to a chronic pleural effusion. Continue home medications Monitor volume status Stable (4) CKD (chronic kidney disease): Plan: Creatinine baseline ~ 2 Monitor renal function Avoid nephrotoxic agents as able Renally dose meds appropriately Cr is 1.98 today Continue home lasix Monitor renal function (5) COPD with emphysema: Plan: Continue inhalers No signs of acute exacerbation (6) Pulmonary hypertension: (7) Metastatic primary lung cancer: Plan: Follows with Dr. Bravo - received chemo x 1 but didn't tolerate, not planning for additonal chemo at this point (8) Sleep apnea: Plan: Wears O2 at night - 2-2.5 L (9) Diabetes mellitus, type 2: Plan: Continue basal insulin with sliding scale BSG ACHS, 1782, 105 continue current regimen blood sugars viewed by me Diabetic diet a1c 7.5/08/19/22 Plan Continue other home medications as appropriate DVT Px:Heparin SQ Code Status: Full code CM working on placement. Will need arrangement with Pain mgt to schedule injection above prior to dc. Plan discussed extensively with patient and at bedside today. I spent a total of 50 minutes coordinating, documenting, and providing care for this patient excluding time spent in the performance of separately billed services. Admission and Anticipated Discharge Date Admission Date: September 06, 2022 Supervising Physician Co-Signing Physician Notes I have seen and examined the patient and have discussed the case with the provider above. I agree with the assessment and plan as stated. Per my evaluation he had received the clonazepam and was comfortable, however, still reporting significant head pain. We discussed his CKD and that NSAIDs were relatively contraindicated, but we would given him one dose now to see if we could give him any more relief. He feels he may be able to go home and followup in the office for Botox injection. Significnat pain in head and left lateral neck/strap muscles. Multiple tenderpoints. He has extremely restricted ROM and is unable to rotate, side bed or extend his neck which remains in flexion with tendency to the left always. Lung clear and cardiac exam unremarkable. Labs reviewed. Slightly hyperglycemic today. Will cont to monitor and up titrate insulin if needed in am. Appreciate pain management assistance with interventions and will isabelle to continue with scheduled clonazepam for the time being. Of note, Baclofen was probably overwhelming for him given the high dose for his kidney function. Max baclofen dose s 2.5. Currently this is held and he is on low dose flexeril as needed. Monitor closely for interactions related to polypharmacy. DO Nir Juan Patient was seen and examined in room 379-2. Follow-up cervical dystonia. Still has headache, with pain extending to neck. Denies f/c/s, chest pain, sob, n/v/d, abd pain. Awaiting SNF placement. Review of Systems Review of Systems: At least ten systems reviewed and negative except as noted in the HPI. Physical Exam Physical Exam: Gen: WD/WN, elderly, male, NAD, A&O x3 HEENT: Normocephalic, atraumatic, left torticollis, conjunctivae moist, sclerae anicteric, mucous membranes moist. Lung: Clear to Auscultation bilaterally, no wheezes/rales/rhonchi Heart: Regular rate, regular rhythm, no murmurs, rubs, or gallops Abdomen: Soft, NT, ND +BS x 4 Extremities: Bilateral venous stasis changes, no active cellulitis, no wounds, trace edema Skin: Warm, no rash, negative turgor. Results & Data Results & Data Vital Signs (Past 12 Hours) Vital Signs Temp Pulse Resp BP BP Pulse Ox O2 Del Method 09/15/22 15:00 36.3 C L 83 19 145/89 H 97 Room Air 09/15/22 08:03 36.5 C 89 19 142/69 H 96 Room Air Laboratory Results Short CBC 09/15/22 Range/Units 06:28 WBC 14.70 H (4.8-10.8) K/ul Hgb 13.4 L (14.0-18.0) g/dl Hct 40.1 L (42.0-52.0) % Plt Count 182 (130-400) K/uL BMP 09/15/22 06:28 Sodium 133 L Potassium 3.8 Chloride 98 Carbon Dioxide 26 BUN 79 H Creatinine 2.03 H Glucose 143 H Calcium 8.9 Diagnostic Findings Chest X-Ray 09/05/22 10:15 XR chest 1V portable CLINICAL HISTORY: Dyspnea on exertion. Lung cancer. COMPARISON STUDY: Chest radiograph August 16, [address] February 10, 2022. FINDINGS: Left subclavian [id number], median sternotomy wires and mediastinal surgical clips are noted. Right lower lobe mass projects over the right hilum and is better depicted on prior chest CT. There is no pneumothorax. Cardiomegaly is unchanged. There is pulmonary vascular congestion without overt pulmonary edema. Left lower lung opacity could be due to a chronic pleural effusion. This is unchanged. IMPRESSION: 1. Stable cardiomegaly. Pulmonary vascular congestion without overt pulmonary edema. 2. Right lower lobe mass, better depicted on prior chest CT. 3. No change in left basilar opacity likely related to a chronic pleural effusion. ACT 112: Negative or not required by law. Electronically signed by: Srinivasan Jacobs M.D. 09/05/2022 11:[address] 09/06/22 12:35 CT head/brain wo con CLINICAL HISTORY: 76 years-old Male with headache. Acute headache with neck tenderness TECHNIQUE: Multiple axial CT images of the head were obtained without contrast. A dose lowering technique was utilized adhering to the principles of ALARA. CT DOSE: 432.06 mGycm COMPARISON: None. FINDINGS: Limited exam secondary to positioning. The patient did not cooperate for the study. Unchanged ventriculomegaly with white matter hypodensities suggestive of probable chronic microvascular ischemic disease. No definite acute intracranial hemorrhage, midline shift or abnormal extra-axial collection identified. The calvarium is intact. The paranasal sinuses, mastoid air cells, and middle ear cavities are clear. IMPRESSION: This study is nearly nondiagnostic secondary to patient positioning. No acute intracranial abnormality identified on this markedly limited study. Consider repeat imaging if there is further clinical merit. ACT 112: Negative or not required by law. The above report was generated using voice recognition software. It may contain grammatical, syntax or spelling errors. Electronically signed by: Giovanni Montoya M.D. 09/06/2022 2:[address] 09/06/22 12:41 CT SCAN OF THE CERVICAL SPINE CLINICAL HISTORY: Neck pain. Cervicalgia. COMPARISON STUDY: CT of the neck dated 04/24/2016. TECHNIQUE: CT scan of the cervical spine is performed from the skull base to the upper thoracic spine. Images are reviewed in the axial, sagittal, and coronal planes. IV contrast was not administered for this examination. A dose lowering technique was utilized adhering to the principles of ALARA. The examination is degraded by inability to properly position the patient within the CT gantry. CT DOSE: 879.49 mGycm FINDINGS: Skeletal structures: The skeletal structures are osteopenic. There is no evidence of fracture or subluxation involving the cervical spine. Vertebral body height is maintained. There is minimal anterolisthesis at C4-C5. Alignment is otherwise preserved. Small anterior osteophytes are seen throughout. There is reversal of the cervical lordosis. The odontoid process and lateral masses are intact. The atlantoaxial articulation is preserved noting mild productive de generative change. The spinous processes appear intact. There is mild multilevel facet arthropathy. Intervertebral discs: There is moderate disc space narrowing at C3-C4. Mild disc space narrowing is seen at the remaining cervical levels. Central canal: Grossly patent. Soft tissues: The prevertebral and paraspinous soft tissues are within normal limits. There is atherosclerotic calcification of the carotid bulbs. A central venous catheter is noted at the left thoracic inlet. Calvarium: The visualized calvarium at the skull base appears intact. Brain parenchyma: Partially visualized brain parenchyma at the skull base is within normal limits. Sinuses and mastoids: The visualized paranasal sinuses are clear. The mastoid air cells are well pneumatized. Lung apices: Clear as visualized. IMPRESSION: 1. There is no evidence of fracture or subluxation involving the cervical spine. 2. Osteopenia and spondylotic change as above. ACT 112: Negative or not required by law. Electronically signed by: Reggie Stone M.D. 09/06/2022 2:40 PM Lumbar Puncture 09/07/22 16:13 Lumbar puncture under fluoroscopy INDICATION: Possible normal pressure hydrocephalus PROCEDURE: Procedure and risks were delayed. Informed consent was obtained. The patient was placed in a FAROESE position on the fluoroscopic examination table. The lower lumbar region was prepped and draped in sterile fashion. 1% lidocaine was utilized for skin anesthesia. Utilizing fluoroscopic guidance, a 22-gauge spinal needle was advanced into the intrathecal space at the L3-L4 disc space level. Spot image was obtained. Opening pressure was measured at 17 cm H2O. Approximately 9 mL of clear CSF fluid was removed and sent to the lab for analysis. The needle was removed and Band-Aid applied. The patient tolerated the procedure well. Total fluoroscopy time 2 minutes. DAP is 152.5 mcGy/m2. IMPRESSION: Lumbar puncture as above. Performed, dictated, and signed by Damon Gibson PA-C; to be co-signed by Dr. Isaac Martino. Electronically signed by: Isaac Martino M.D. 09/07/2022 5:[address] 09/09/22 20:02 Exam(s): CT HEAD Without Contrast EXAM: CT Head Without Intravenous Contrast CLINICAL HISTORY: Reason for exam: AMS. TECHNIQUE: Axial computed tomography images of the head/brain without intravenous contrast. CTDI is 38.39 mGy and DLP is 767.83 mGy-cm. Automated exposure control was utilized for the study. A dose lowering technique was utilized adhering to the principles of ALARA. COMPARISON: CT head 09/06/2022. FINDINGS: Artifacts: Examination is degraded by extensive patient motion. Brain: Global parenchymal volume loss with chronic microvascular ischemic changes. No hemorrhage. Ventricles: Degree of ventriculomegaly is out of proportion to degree of parenchymal volume loss. Bones/joints: Unremarkable. No acute fracture. Soft tissues: Unremarkable. Sinuses: Unremarkable as visualized. Mastoid air cells: Right mastoid effusion. IMPRESSION: 1. Examination is degraded by extensive patient motion. 2. No discrete intracranial hemorrhage on motion degraded examination. 3. Global parenchymal volume loss with chronic microvascular ischemic changes. 4. Degree of ventriculomegaly is out of proportion to degree of parenchymal volume loss. Recommend correlation for normal pressure hydrocephalus. Electronically signed by: Derick Garcia MD 09/09/22 22:11 PM (3) CHF (congestive heart failure) Heart failure chronicity: acute Heart failure type: unspecified Qualified Code(s): I50.9 - Heart failure, unspecified
[2022-09-15] MEDS ORDERED: NAPROXEN 250 MG TAB PO STA (19:05)
[2022-09-15] MEDS: clonazePAM 0.5 MG TAB PO SCH (20:42)
[2022-09-15] MEDS: FAMOTIDINE 20 MG TAB PO SCH (20:42)
[2022-09-15] MEDS: ATORVASTATIN 40 MG TAB PO SCH (20:42)
[2022-09-15] MEDS: METOPROLOL SUCC 25MG EXT REL TAB PO SCH (20:45)
[2022-09-15] MEDS: ACETAMINOPHEN 500 MG TAB PO SCH (21:22)
[2022-09-16] MEDS: ACETAMINOPHEN 500 MG TAB PO SCH ×3 (06:23→21:38)
[2022-09-16 09:04] LABS: BUN Creatinine Ratio 43.2 (10-20); Creatinine Clr Calc Pharmacy 48.2 ml/min; Est GFR (African American) 52.6 ml/min; Est GFR (Non-African American) 45.4 ml/min
--- NOTE | 2022-09-16 09:12 | Procedure Note ---
Date of Service September 16, 2022 Home Medications Medication Instructions Recorded Confirmed Type albuterol sulfate 2.5 mg/3 mL 2.5 mg inhalation Q4 PRN cough,SOB 03/08/18 09/05/22 History (0.083 %) solution for nebulization allopurinol 300 mg tablet 300 mg PO QAM 03/08/18 09/05/22 History aspirin 81 mg tablet,delayed 81 mg PO QAM 03/08/18 09/05/22 History release (Dane Low Dose Aspirin) atorvastatin 40 mg tablet 40 mg PO HS 03/08/18 09/05/22 History furosemide 80 mg tablet 80 mg PO BID 03/08/18 09/05/22 History insulin aspart U-100 100 unit/mL 1 dose subcut BID 03/08/18 09/05/22 History (3 mL) subcutaneous pen (Novolog FlexPen U-100 Insulin aspart) insulin glargine 100 unit/mL 40 unit subcut HS 03/08/18 09/05/22 History subcutaneous solution (Lantus U-100 Insulin) metoprolol succinate 50 mg 50 mg PO UD 03/08/18 09/05/22 History tablet,extended release 24 hr omeprazole 40 mg capsule,delayed 40 mg PO QAM 03/08/18 09/05/22 History release spironolactone 25 mg tablet 12.5 mg PO QAM #0 tabs 01/27/20 09/05/22 Rx cholecalciferol (vitamin D3) 50 50 mcg PO QAM 12/04/20 09/05/22 History mcg (2,000 unit) capsule famotidine 20 mg tablet 20 mg PO HS 12/04/20 09/05/22 History albuterol sulfate 90 mcg/actuation 2 puff inhalation QID PRN 02/12/21 09/05/22 History aerosol inhaler (ProAir HFA) Shortness Of Breath metolazone 5 mg tablet 5 mg PO WK 02/12/21 09/05/22 History promethazine 25 mg tablet 25 mg PO Q6H PRN NAUSEA/VOMITING 02/12/21 09/05/22 History finasteride 5 mg tablet 5 mg PO QAM #90 tabs 12/01/21 09/05/22 Rx Portable Oxygen #1 ea 01/29/22 09/05/22 Rx sertraline 50 mg tablet 50 mg PO QAM 02/03/22 09/05/22 History guaifenesin 600 mg tablet, 600 mg PO AMHS 08/16/22 09/05/22 History extended release 12 hr (Mucinex) hydroxyzine HCl 25 mg tablet 25 mg PO TID PRN Anxiety 08/16/22 09/05/22 History ipratropium 0.5 mg-albuterol 3 mg 3 ml inhalation Q4H PRN cough,SOB 08/16/22 09/05/22 History (2.5 mg base)/3 mL nebulization soln loperamide 2 mg tablet 2 mg PO QID PRN Diarrhea 08/16/22 09/05/22 History fluticasone fur. 100 mcg-umeclid 1 inh inhalation DAILY #3 Inhalers 08/18/22 09/05/22 Rx 62.5 mcg-vilant 25 mcg inhalat.powder (Trelegy Ellipta) Allergies Allergy/AdvReac Type Severity Reaction Status Date / Time No Known Allergies Allergy U Verified 08/05/22 16:20 Past Med/Surg History Medical History Advanced COPD Anemia HX Anxiety Arthritis NECK Back problem HX INJECTIONS, POSSIBLE NEED FOR SX Anthony's esophagus BPH (benign prostatic hyperplasia) CAD (coronary artery disease) Last cardiac cath 08/09/2011 and demonstrated severe tuscarora vessel disease and an occluded SVG to the OM2. All other grafts noted to be patent at that time. 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 Smith Congestive heart failure chronic combined systolic and diastolic EF 45% 2011 Diabetes mellitus, type 2 IDDM Dyslipidemia GERD (gastroesophageal reflux disease) Gout HX History of colon polyps History of radiation therapy 5 TX A FEW YRS AGO FOR LUNG NODULES..."MADE IT GROW MORE" History of renal calculi HTN (hypertension) Ileostomy, has currently PER PT: SWELLED UP AROUND WHERE BAG HOOKS UP "RUPTURED" NO PROBLEMS WITH FUNCTIONING , DR AWARE...POSSIBLE NEED FOR UPCOMING SX Lung cancer (07/23/20) Right Lower Lobe - Adenocarcinoma Lung nodules ? DETAILS/REASON FOR UPCOMING PROCEDURE Metastatic primary lung cancer MRSA (methicillin resistant Staphylococcus aureus) Per infection control, 02/2018: "Patient has a history of MRSA in a wound and a nasal screen in 2014. Patient requires contact precautions." Myocardial Infarction 2005 - CABG X5 VESSELS. Subsequent caths with stenting 2005 and 2006. Obesity Huma's syndrome On home oxygen therapy 2LPM VIA N/C AT HS PRN Physical debility Poor historian spoke with who is a good historian Secondary hyperparathyroidism Sleep apnea O2 AT NIGHT PRN Surgical History H/O lithotripsy x 2 History of bronchoscopy x3, last 02/10/22 @ [facility] Grade 1 view, MAC 3, ETT 9. History of cardiac cath 2006 PCI of LCx 2007 PCI of LAD 2012 severe tuscarora vessel dz and an occluded SVG to OM2 graft. All other grafts patent. History of colonoscopy History of coronary artery bypass graft X5 VESSELS AT [facility] 2004 History of esophagogastroduodenoscopy (EGD) History of surgery PROCEDURE LAST YR [place] - ? ENDOBRONCHIAL U/S - PT NOT SURE FINDINGS History of total colectomy for Arlington's syndrome History of total hip arthroplasty RIGHT HIP -- WITH MULTIPLE REVISIONS Port-A-Cath in place (07/06/22) Access port placement with use of fluoroscopy. Status post coronary artery bypass grafting "x 5, 2005" Family History Father , Passed age 92 of metastatic prostate cancer No problems noted. Mother , Passed age 87 of chronic problems No problems noted. Brother , Passed age 54 of DC Heart disease Sister Breast cancer Son No problems noted. Son No problems noted. Daughter No problems noted. Other No family history of adverse response to anesthesia Social History Smoking Status: Former smoker Tobacco Type: Cigarettes Age Started Using Tobacco: 13; Age Quit Using Tobacco: 59; packs per day: 3; Second Hand Exposure: Yes (parents smoked); Hx Alcohol Use: No Hx Substance Use: No Preferred Language: Greenlandic Communication Ability: Effective Visual Impairment: No Limitations Hearing Ability: Normal Road Patcher Required: No Beliefs That Will Affect Care: None marital status: Current Living Situation: Spouse Current Living Situation Comment: Lives with current occupational status: retired 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 How many Children do You have: 3 Feels Safe at Home: Yes Childhood Exposure to Second-Hand Smoke: Yes caffeine: Yes (2-3 cups of coffee/day ) during the past year weight has: remained stable Assistive Devices: Cane, Oxygen - at Night and Walker Time Out Pre-Procedure Verification Yes: Consents/Permits Signed, Correct Position for Procedure and Correct Implants, Special Equipment, Requirements Available and NA: Sedation Consent Signed, Emergency Equipment Available & Checked Prior to Procedure and Air Hose Coupler Applied (RN Sedation Only) Time Out Correct Patient, Correct Procedure, Correct Site-Side and Allergies Verified Team Agrees: Yes Time Out Performed Time: 08:00 Procedure Description Procedure Performed CERVICAL TRIGGER POINT INJECTIONS, AURICULOTEMPORAL, GREATER OCCIPITAL AND LESSER OCCIPITAL NERVE BLOCKS Proximal Trapezius - 1 site Anterior Scalene - 1 site Sternocleidomastoid - 2 sites Diagnosis: Occipital Neuralgia; Cervical dystonia Side/peripheral nerves injected: LEFT Performed by: Erika Shin PA-C Prior to starting, the diagnosis and the procedure was reviewed with the patient in detail. Possible risks and complications including infection, bleeding, damage to surrounding structures and increased pain were discussed. Alternative therapies were also reviewed. All questions were answered and it was agreed to proceed. Informed consent was obtained. Allergies and medication list was reviewed. The patient was placed in sitting position. Immediately prior to starting the procedure, a time out was conducted with the staff and the patient where the patient was identified, proposed procedure was verified, consent was reviewed and the proper site for the planned procedure was identified. Patient was not given any intravenous sedation and constant verbal contact was maintained throughout the procedure. On examination, no signs of skin breakdown or infection were noted at the injection site. The site was cleansed with CloraPrep followed by alcohol. Sterile technique was used throughout the procedure. After identifying skeletal landmarks, each site was injected with a solution containing with 9 cc of 0.5% Ropivacaine MPF and 40 mg Kenalog. Each site was injected with 1-1.5 cc's. Aspiration was negative. Hemostasis noted. Patient tolerated the procedure uneventfully without complications. Procedure Performed By Erika Shin Complications none Procedure Tolerated well Assessment & Plan (1) Cervicogenic headache: (2) Cervical dystonia: Plan 1. Discussed stretches and exercises to perform. 2. Plan for outpatient Botox injections 200 units once discharged. Admission and Anticipated Discharge Date Admission Date: September 06, 2022
[2022-09-16] MEDS: INSULIN ASPART PER UNIT CHARGE SC SCH ×4 (09:40→21:38)
[2022-09-16] MEDS: LANTUS PER UNIT CHARGE SQ SCH ×2 (09:40→21:40)
[2022-09-16] MEDS: FLUTICASONE/VILANTEROL 100/25MCG 14 PUFFS/INHALER INH SCH (09:44)
[2022-09-16] MEDS: allopurinoL 300 MG TAB PO SCH (09:47)
[2022-09-16] MEDS: ASPIRIN 81 MG ECTAB PO SCH (09:47)
[2022-09-16] MEDS: UMECLIDINIUM BROMIDE 62.5MCG/BLISTER 7 PUFFS/INHALER INH SCH (09:47)
[2022-09-16] MEDS: CHOLECALCIFEROL 1,000 UNITS 25 MCG TAB PO SCH (09:48)
[2022-09-16] MEDS: FUROSEMIDE 80 MG TAB PO SCH ×2 (09:49→16:58)
[2022-09-16] MEDS: guaiFENesin 600 MG TABCR PO SCH ×2 (09:49→21:36)
[2022-09-16] MEDS: FINASTERIDE 5 MG TAB PO SCH (09:49)
[2022-09-16] MEDS: METOPROLOL SUCC 50MG EXT REL TAB PO SCH (09:50)
[2022-09-16] MEDS: SERTRALINE HCL 50 MG TABLET PO SCH (09:51)
[2022-09-16] MEDS: PANTOprazole 40 MG TAB PO SCH (09:51)
[2022-09-16] MEDS: SPIRONOLACTONE 12.5 MG TAB PO SCH (09:52)
[2022-09-16] MEDS: HEPARIN SOD 5,000 UNIT/0.5 ML VIAL SQ SCH ×2 (09:53→21:37)
[2022-09-16] MEDS: clonazePAM 0.5 MG TAB PO SCH ×3 (09:58→21:36)
--- NOTE | 2022-09-16 16:55 | Hospitalist Progress Note ---
Date of Service September 16, 2022 Assessment & Plan (1) Headache: Plan: This is a 76 yr male with H/O metastatic lung cancer, COPD, combined systolic and diastolic CHF, insulin-requiring DM, and CAD who presented to the ED this morning with ongoing and worsening of headache over the last 10 days, now becoming so severe as to interfere with ADLs. Intractable headache Cervicalgia with Neck Stiffness Per neuro, Cervicogenic headache, Cervical dystonia --Outpatient MRI done on 09/02/22 showed No evidence of intracranial metastatic disease or acute intracranial abnormality. Finding seen in the setting of normal pressure hydrocephalus. Recommend clinical correlation. Moderate chronic small vessel ischemic disease. --Head CT:This study is nearly nondiagnostic secondary to patient positioning. No acute intracranial abnormality identified on this markedly limited study. Consider repeat imaging if there is further clinical merit. --Neck CT:There is no evidence of fracture or subluxation involving the cervical spine. Osteopenia and spondylotic change LP done and is unremarkable based on fluid analysis. Protein elevated, pressure WNL Neurologist recommendations noted -Had drowsiness and confusion on 09/09/22 likely due to medication side effects in view of poor renal function and baclofen was discontinued Regimen adjusted today due to worsening but similar pain - started on Klonopin 0.5mg TID, scheduled Tylenol 1,000mg TID, transitioned Flexeril to PRN, discontinued gabapentin Pain mgmt evaluated- recommends Botox injection but can only be done as outpatient. S/p cervical trigger point injections and nerve blocks by pain mgmt this morning with some pain relief, improved ROM Avoid NSAIDs due to CKD UTI Present on arrival Urine culture growing Enterococcus faecalis Completed ampicillin treatment (2) Left conjunctivitis: Plan: Tx complete (3) CHF (congestive heart failure): Plan: Chronic diastolic heart failure CXR:. Stable cardiomegaly. Pulmonary vascular congestion without overt pulmonary edema. Right lower lobe mass, better depicted on prior chest CT. No change in left basilar opacity likely related to a chronic pleural effusion. Continue home medications Monitor volume status Stable (4) CKD (chronic kidney disease): Plan: Creatinine baseline ~ 2 but improved to 1.46 today Monitor renal function Avoid nephrotoxic agents as able Renally dose meds appropriately Continue home lasix Monitor renal function (5) COPD with emphysema: Plan: Continue inhalers No signs of acute exacerbation (6) Pulmonary hypertension: (7) Metastatic primary lung cancer: Plan: Follows with Dr. Bravo - received chemo x 1 but didn't tolerate, not planning for additonal chemo at this point (8) Sleep apnea: Plan: Wears O2 at night - 2-2.5 L (9) Diabetes mellitus, type 2: Plan: Continue basal insulin with sliding scale BSG ACHS, 1782, 105 continue current regimen blood sugars viewed by me Diabetic diet a1c 7.5/08/19/22 (10) Abnormal laboratory test: Plan: Potassium, Cr and calcium levels significantly different than previous on AM labs - repeating to ensure not a lab error. Plan Continue other home medications as appropriate DVT Px:Heparin SQ Code Status: Full code CM working on placement for rehab. Will need arrangement with Pain mgt to schedule injection above prior to dc. Initial facilities declined but search expanded and Magdalene updated. I spent a total of 45 minutes coordinating, documenting, and providing care for this patient excluding time spent in the performance of separately billed services. Admission and Anticipated Discharge Date Admission Date: September 06, 2022 Supervising Physician Co-Signing Physician Notes I have seen and examined the patient and have discussed the case with the provider above. I agree with the assessment and plan as stated. Mr Hidalgo has had some improvement with the trigger point injections this morning, however, still has a significant amount of pain and decreased ROM. He denies other issues at this time. Physical exam reveals normal vitals, elderly man who is oriented in NAD, obese, clear rotation and sidebending to the left is noted. He is unable to straighten out his neck or extend it. Physical exam otherwise unremarkable. Agree with continued use of clonazepam for supportive care measures while awaiting SNF options. Patient will ultimately need a trial of Botox injection to treat this cervical dystonia. DO Nir Juan Patient was seen and examined in room 379-2. Follow-up cervical dystonia. Pain significantly improved following cervical trigger point injections and nerve blocks by pain mgmt this AM. Has increased mobility and relief from pain from fronal aspects of hear. Still with discomfort of posterior aspect of head. Denies f/c/s, chest pain, sob, n/v/d, abd pain. Awaiting SNF placement for rehab. Review of Systems Review of Systems: At least ten systems reviewed and negative except as noted in the HPI. Physical Exam Physical Exam: Gen: WD/WN, elderly, male, NAD, A&O x3 HEENT: Normocephalic, atraumatic, left torticollis with improved ROM, conjunctivae moist, sclerae anicteric, mucous membranes moist Lung: Clear to Auscultation bilaterally, no wheezes/rales/rhonchi Heart: Regular rate, regular rhythm, no murmurs, rubs, or gallops Abdomen: Soft, NT, ND +BS x 4 Extremities: Bilateral venous stasis changes, no active cellulitis, no wounds, trace edema Skin: Warm, no rash, negative turgor. Results & Data Results & Data Vital Signs (Past 12 Hours) Vital Signs Temp Pulse Resp BP BP Pulse Ox O2 Del Method 09/16/22 15:04 36.3 C L 65 18 114/75 97 Room Air 09/16/22 11:21 36.4 C L 70 18 107/65 97 Room Air 09/16/22 09:59 Room Air 09/16/22 08:18 36.4 C L 66 18 116/75 98 Room Air Laboratory Results [facility] 09/16/22 07:50 Sodium 141 Potassium 3.0 L D Chloride 110 H Carbon Dioxide 18 L BUN 63 H Creatinine 1.46 H D Glucose 88 Calcium 6.0 L D Diagnostic Findings Chest X-Ray 09/05/22 10:15 XR chest 1V portable CLINICAL HISTORY: Dyspnea on exertion. Lung cancer. COMPARISON STUDY: Chest radiograph August 16, [address] February 10, 2022. FINDINGS: Left subclavian Yzatne-b-Pozm, median sternotomy wires and mediastinal surgical clips are noted. Right lower lobe mass projects over the right hilum and is better depicted on prior chest CT. There is no pneumothorax. Cardiomegaly is unchanged. There is pulmonary vascular congestion without overt pulmonary edema. Left lower lung opacity could be due to a chronic pleural effusion. This is unchanged. IMPRESSION: 1. Stable cardiomegaly. Pulmonary vascular congestion without overt pulmonary edema. 2. Right lower lobe mass, better depicted on prior chest CT. 3. No change in left basilar opacity likely related to a chronic pleural effusion. ACT 112: Negative or not required by law. Electronically signed by: Srinivasan Jacobs M.D. 09/05/2022 11:[address] 09/06/22 12:35 CT head/brain wo con CLINICAL HISTORY: 76 years-old Male with headache. Acute headache with neck tenderness TECHNIQUE: Multiple axial CT images of the head were obtained without contrast. A dose lowering technique was utilized adhering to the principles of ALARA. CT DOSE: 432.06 mGycm COMPARISON: None. FINDINGS: Limited exam secondary to positioning. The patient did not cooperate for the study. Unchanged ventriculomegaly with white matter hypodensities suggestive of probable chronic microvascular ischemic disease. No definite acute intracranial hemorrhage, midline shift or abnormal extra-axial collection identified. The calvarium is intact. The paranasal sinuses, mastoid air cells, and middle ear cavities are clear. IMPRESSION: This study is nearly nondiagnostic secondary to patient positioning. No acute intracranial abnormality identified on this markedly l imited study. Consider repeat imaging if there is further clinical merit. ACT 112: Negative or not required by law. The above report was generated using voice recognition software. It may contain grammatical, syntax or spelling errors. Electronically signed by: Giovanni Montoya M.D. 09/06/2022 2:[address] 09/06/22 12:41 CT SCAN OF THE CERVICAL SPINE CLINICAL HISTORY: Neck pain. Cervicalgia. COMPARISON STUDY: CT of the neck dated 04/24/2016. TECHNIQUE: CT scan of the cervical spine is performed from the skull base to the upper thoracic spine. Images are reviewed in the axial, sagittal, and coronal planes. IV contrast was not administered for this examination. A dose lowering technique was utilized adhering to the principles of ALARA. The examination is degraded by inability to properly position the patient within the CT gantry. CT DOSE: 879.49 mGycm FINDINGS: Skeletal structures: The skeletal structures are osteopenic. There is no evidence of fracture or subluxation involving the cervical spine. Vertebral body height is maintained. There is minimal anterolisthesis at C4-C5. Alignment is otherwise preserved. Small anterior osteophytes are seen throughout. There is reversal of the cervical lordosis. The odontoid process and lateral masses are intact. The atlantoaxial articulation is preserved noting mild productive degenerative change. The spinous processes appear intact. There is mild multilevel facet arthropathy. Intervertebral discs: There is moderate disc space narrowing at C3-C4. Mild disc space narrowing is seen at the remaining cervical levels. Central canal: Grossly patent. Soft tissues: The prevertebral and paraspinous soft tissues are within normal limits. There is atherosclerotic calcification of the carotid bulbs. A central venous catheter is noted at the left thoracic inlet. Calvarium: The visualized calvarium at the skull base appears intact. Brain parenchyma: Partially visualized brain parenchyma at the skull base is within normal limits. Sinuses and mastoids: The visualized paranasal sinuses are clear. The mastoid air cells are well pneumatized. Lung apices: Clear as visualized. IMPRESSION: 1. There is no evidence of fracture or subluxation involving the cervical spine. 2. Osteopenia and spondylotic change as above. ACT 112: Negative or not required by law. Electronically signed by: Reggie Stone M.D. 09/06/2022 2:40 PM Lumbar Puncture 09/07/22 16:13 Lumbar puncture under fluoroscopy INDICATION: Possible normal pressure hydrocephalus PROCEDURE: Procedure and risks were delayed. Informed consent was obtained. The patient was placed in a ELIF position on the fluoroscopic examination table. The lower lumbar region was prepped and draped in sterile fashion. 1% lidocaine was utilized for skin anesthesia. Utilizing fluoroscopic guidance, a 22-gauge spinal needle was advanced into the intrathecal space at the L3-L4 disc space level. Spot image was obtained. Opening pressure was measured at 17 cm H2O. Approximately 9 mL of clear CSF fluid was removed and sent to the lab for analysis. The needle was removed and Band-Aid applied. The patient tolerated the procedure well. Total fluoroscopy time 2 minutes. DAP is 152.5 mcGy/m2. IMPRESSION: Lumbar puncture as above. Performed, dictated, and signed by Damon Gibson PA-C; to be co-signed by Dr. Isaac Martino. Electronically signed by: Isaac Martino M.D. 09/07/2022 5:[address] 09/09/22 20:02 Exam(s): CT HEAD Without Contrast EXAM: CT Head Without Intravenous Contrast CLINICAL HISTORY: Reason for exam: AMS. TECHNIQUE: Axial computed tomography images of the head/brain without intravenous contrast. CTDI is 38.39 mGy and DLP is 767.83 mGy-cm. Automated exposure control was utilized for the study. A dose lowering technique was utilized adhering to the principles of ALARA. COMPARISON: CT head 09/06/2022. FINDINGS: Artifacts: Examination is degraded by extensive patient motion. Brain: Global parenchymal volume loss with chronic microvascular ischemic changes. No hemorrhage. Ventricles: Degree of ventriculomegaly is out of proportion to degree of parenchymal volume loss. Bones/joints: Unremarkable. No acute fracture. Soft tissues: Unremarkable. Sinuses: Unremarkable as visualized. Mastoid air cells: Right mastoid effusion. IMPRESSION: 1. Examination is degraded by extensive patient motion. 2. No discrete intracranial hemorrhage on motion degraded examination. 3. Global parenchymal volume loss with chronic microvascular ischemic changes. 4. Degree of ventriculomegaly is out of proportion to degree of parenchymal volume loss. Recommend correlation for normal pressure hydrocephalus. Electronically signed by: Derick Garcia MD 09/09/22 22:11 PM (3) CHF (congestive heart failure) Heart failure chronicity: acute Heart failure type: unspecified Qualified C ode(s): I50.9 - Heart failure, unspecified
[2022-09-16] MEDS ORDERED: POTASSIUM CHLORIDE CRTAB 20 MEQ TABCR PO STA (16:56)
[2022-09-16 18:21] LABS: Blood Urea Nitrogen 86 mg/dl (6-23)
[2022-09-16] MEDS ORDERED: NAPROXEN 250 MG TAB PO STA (18:21)
[2022-09-16 18:25] LABS: Alanine Aminotransferase 10 U/L (7-52); Albumin Globulin Ratio 1.1 (0.9-2); Albumin Level 3.3 gm/dl (3.4-5.0); Alkaline Phosphatase 135 U/L (34-104); Anion Gap 7 (3-11); Bilirubin,Total 0.5 mg/dl (0.2-1.0); Carbon Dioxide 25 mmol/L (21-32); Chloride 95 mmol/L (98-107); Creatinine Clr Calc Pharmacy 32.7 ml/min; Est GFR (Non-African American) 28.4 ml/min; Globulin 3.1 gm/dl (2.5-4.0); Glucose 172 mg/dl (70-99(Fasting)); Sodium 127 mmol/L (136-145); Total Protein 6.4 gm/dl (6.0-8.3)
[2022-09-16 19:34] LABS: Potassium 5.8 mmol/L (3.5-5.1)
[2022-09-16 21:34] LABS: BUN Creatinine Ratio 38.8 (10-20); Creatinine Clr Calc Pharmacy 31.4 ml/min; Est GFR (African American) 31.4 ml/min; Est GFR (Non-African American) 27.1 ml/min; Potassium 4.6 mmol/L (3.5-5.1)
[2022-09-16] MEDS: ATORVASTATIN 40 MG TAB PO SCH (21:37)
[2022-09-16] MEDS: FAMOTIDINE 20 MG TAB PO SCH (21:37)
[2022-09-16] MEDS: METOPROLOL SUCC 25MG EXT REL TAB PO SCH (21:38)
[2022-09-17] MEDS: ACETAMINOPHEN 500 MG TAB PO SCH ×3 (05:44→21:15)
[2022-09-17 08:30] LABS: Hematocrit (blood only) 36.9 % (42.0-52.0); Hemoglobin 12.2 g/dl (14.0-18.0); Mean Corpuscular Hemoglobin 30.8 pg (25.0-34.0); Mean Corpuscular Hgb Conc 33.1 g/dL (32.0-36.0); Mean Corpuscular Volume 93.2 fL (80.0-100.0); Mean Platelet Volume 11.9 fL (9.4-12.4); Platelet Count 177 K/uL (130-400); RDW Coefficient of Variation 14.6 % (11.5-14.5); RDW Standard Deviation 50.1 fL (36.4-46.3); Red Blood Count 3.96 M/uL (4.70-6.10); White Blood Count 13.35 K/ul (4.8-10.8)
[2022-09-17] MEDS: allopurinoL 300 MG TAB PO SCH (08:31)
[2022-09-17] MEDS: CHOLECALCIFEROL 1,000 UNITS 25 MCG TAB PO SCH (08:32)
[2022-09-17] MEDS: ASPIRIN 81 MG ECTAB PO SCH (08:32)
[2022-09-17] MEDS: FLUTICASONE/VILANTEROL 100/25MCG 14 PUFFS/INHALER INH SCH (08:33)
[2022-09-17] MEDS: FINASTERIDE 5 MG TAB PO SCH (08:33)
[2022-09-17] MEDS: guaiFENesin 600 MG TABCR PO SCH (08:34)
[2022-09-17] MEDS: METOPROLOL SUCC 50MG EXT REL TAB PO SCH (08:35)
[2022-09-17] MEDS: PANTOprazole 40 MG TAB PO SCH (08:36)
[2022-09-17] MEDS: SERTRALINE HCL 50 MG TABLET PO SCH (08:36)
[2022-09-17] MEDS: UMECLIDINIUM BROMIDE 62.5MCG/BLISTER 7 PUFFS/INHALER INH SCH (08:37)
[2022-09-17] MEDS: LANTUS PER UNIT CHARGE SQ SCH ×2 (08:45→21:19)
[2022-09-17] MEDS: INSULIN ASPART PER UNIT CHARGE SC SCH ×4 (08:45→21:20)
[2022-09-17] MEDS: clonazePAM 0.5 MG TAB PO SCH ×3 (08:46→21:14)
[2022-09-17 08:58] LABS: BUN Creatinine Ratio 39.1 (10-20); Calcium 8.9 mg/dl (8.6-10.3); Est GFR (African American) 32.1 ml/min; Est GFR (Non-African American) 27.7 ml/min; Potassium 4.5 mmol/L (3.5-5.1)
[2022-09-17] MEDS: HEPARIN SOD 5,000 UNIT/0.5 ML VIAL SQ SCH ×2 (12:50→21:15)
[2022-09-17] MEDS: traMADol HCL 50 MG TABLET PO PRN ×2 (14:19→21:18)
--- NOTE | 2022-09-17 17:15 | Hospitalist Progress Note ---
Date of Service September 17, 2022 Assessment & Plan (1) Cervicogenic headache: Plan: Per neuro, Cervicogenic headache, Cervical dystonia --Outpatient MRI done on 09/02/22 showed No evidence of intracranial metastatic disease or acute intracranial abnormality. Finding seen in the setting of normal pressure hydrocephalus. Recommend clinical correlation. Moderate chronic small vessel ischemic disease. --Head CT:This study is nearly nondiagnostic secondary to patient positioning. No acute intracranial abnormality identified on this markedly limited study. Consider repeat imaging if there is further clinical merit. --Neck CT:There is no evidence of fracture or subluxation involving the cervical spine. Osteopenia and spondylotic change LP done and is unremarkable based on fluid analysis. Protein elevated, pressure WNL Neurologist recommendations noted -Had drowsiness and confusion on 09/09/22 likely due to medication side effects in view of poor renal function and baclofen was discontinued Regimen adjusted today due to worsening but similar pain - started on Klonopin 0.5mg TID, scheduled Tylenol 1,000mg TID, transitioned Flexeril to PRN, discontinued gabapentin Pain mgmt evaluated- recommends Botox injection but can only be done as outpatient. S/p cervical trigger point injections and nerve blocks by pain mgmt this morning with some pain relief, improved ROM Avoid NSAIDs due to CKD (2) Cervical dystonia: (3) Cervicalgia: (4) Hyponatremia: Plan: Na 127 today. FeNa is 1.7. Possibly 2/2 NSAID use recently but differential is broad with known CKD, h/o lung cancer and persistent pain. Hold further NSAIDs and monitor. Repeat BMP in am. There was a recent fast drop. Urine osm are low normal, no polydipsia. Euvolemic. Will ensure good control of pain/nausea as much as possible. (5) UTI (urinary tract infection): Plan: Present on arrival Urine culture growing Enterococcus faecalis Completed ampicillin treatment (6) Metastatic primary lung cancer: Plan: Follows with Dr. Bravo - received chemo x 1 but didn't tolerate, not planning f or additonal chemo at this point (7) Sleep apnea: Plan: Wears O2 at night - 2-2.5 L (8) Left conjunctivitis: Plan: Tx complete (9) CKD (chronic kidney disease): Plan: around his baseline, noted two doses of naproxen in 48 hours for severe pain, will not continue with this given hyponatremia and slightly elevated K at one point. Monitor renal function Continue home lasix (10) CHF (congestive heart failure): Plan: chronic, euvolemic, stable. 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 Cont current therapy. Plan Continue other home medications as appropriate DVT Px:Heparin SQ Code Status: Full code CM working on placement for rehab. Will need arrangement with Pain mgt to schedule injection above prior to dc. Initial facilities declined but search expanded and [facility] updated. I spent a total of 45 minutes coordinating, documenting, and providing care for this patient excluding time spent in the performance of separately billed services. Admission and Anticipated Discharge Date Admission Date: September 06, 2022 Subjective 77 yo M with cervical dystonia x 3 weeks persistent headache minimal improvement after recent trigger point injections otherwise doing well feels the clonazepam and scheduled APAP is helpful. Review of Systems Review of Systems: All systems were reviewed and negative except as indicated on subjective above. Physical Exam Physical Exam: CONSTITUTIONAL: WNWD, vitals as above, generally well-appearing EYES: normal conjunctivae, no scleral icterus ENT: external ear and nose normal, MMM NECK: trachea midline RESPIRATORY: clear to auscultation bilaterally, no crackles, rales or wheezes, normal respiratory effort CARDIOVASCULAR: regular rate and rhythm, S1 and 2 heard without murmurs, gallops or rubs, no JVD, no peripheral edema CHEST: inspection of chest was normal GASTROINTESTINAL: soft, nontender, ND, no guarding MUSCULOSKELETAL: strength 5/5 throughout, head is normocephalic and atraumatic, very restricted ROM with head sidebent to the left, flexed forward and rotated to the left. SKIN: warm and dry NEUROLOGIC: CN 2-12 grossly intact, no sensory deficit, normal cognition, normal speech, no tremor PSYCHIATRIC: alert cooperative and oriented to person, place and time. Euthymic mood, makes good eye contact, language grossly intact, recent and remote memory grossly intact. Results & Data Results & Data Vital Signs (Past 12 Hours) Vital Signs Temp Pulse Resp BP Pulse Ox O2 Del Method 09/17/22 15:00 36.4 C L 63 16 123/73 96 Room Air 09/17/22 08:21 Room Air 09/17/22 07:20 36.7 C 72 18 116/68 97 Room Air Laboratory Results Short CBC 09/17/22 Range/Units 08:07 WBC 13.35 H (4.8-10.8) K/ul Hgb 12.2 L (14.0-18.0) g/dl Hct 36.9 L (42.0-52.0) % Plt Count 177 (130-400) K/uL BMP 09/16/22 09/16/22 09/16/22 17:14 18:37 20:42 Sodium 127 L D 127 L Potassium TNP 5.8 H D 4.6 D Chloride 95 L 96 L Carbon Dioxide 25 24 BUN 86 H D 87 H Creatinine 2.15 H D 2.24 H Glucose 172 H 190 H Calcium 9.0 D 9.0 09/17/22 08:07 Sodium 128 L Potassium 4.5 Chloride 95 L Carbon Dioxide 26 BUN 86 H Creatinine 2.20 H Glucose 158 H Calcium 8.9 Liver Function 09/16/22 09/16/22 Range/Units 17:14 18:37 Total Bilirubin 0.5 (0.2-1.0) mg/dl AST TNP 11 L ALT 10 (7-52) U/L Alkaline Phosphatase 135 H (34-104) U/L Albumin 3.3 L (3.4-5.0) gm/dl Medications Administered Current Inpatient Medications Acetaminophen (Acetaminophen 500 Mg Tab) 1,000 mg PO Q8 [facility] Stop: 10/15/22 21:59 Last Admin: 09/17/22 14:16 Dose: 1,000 mg Albuterol (Albuterol 0.083% Nebu Soln 3 Ml Vial) 2.5 mg INH Q4 PRN; Protocol PRN Reason: cough,SOB Stop: 10/05/22 11:17 Albuterol (Albut/Ipratrop 3mg/0.5mg Neb 3 Ml Vial) 3 ml INH Q4H PRN; Protocol PRN Reason: cough,SOB Stop: 10/05/22 11:17 Last Admin: 09/05/22 21:50 Dose: 3 ml Albuterol (Albuterol Hfa 8 Gm Inhaler) 2 puffs INH QID PRN PRN Reason: Shortness Of Breath Stop: 10/05/22 11:17 Allopurinol (Allopurinol 300 Mg Tab) 300 mg PO QAM [facility] Stop: 10/06/22 08:59 Last Admin: 09/17/22 08:31 Dose: 300 mg Aspirin (Aspirin 81 Mg Ectab) 81 mg PO QAM [facility] Stop: 10/06/22 08:59 Last Admin: 09/17/22 08:32 Dose: 81 mg Atorvastatin Calcium (Atorvastatin 40 Mg Tab) 40 mg PO [facility] Stop: 10/05/22 20:59 Last Admin: 09/16/22 21:37 Dose: 40 mg Clonazepam (Clonazepam 0.5 Mg Tab) 0.5 mg PO TID [facility] Stop: 10/15/22 20:59 Last Admin: 09/17/22 14:19 Dose: 0.5 mg Cyclobenzaprine HCl (Cyclobenzaprine Hcl 5 Mg Tab) 5 mg PO TID PRN PRN Reason: Muscle Spasm Stop: 10/12/22 08:59 Dextrose (Dextrose 50% 50 Ml Syringe) 25 - 50 ml IV UD PRN; Protocol PRN Reason: Hypoglycemia Protocol Stop: 10/05/22 10:51 Famotidine (Famotidine 20 Mg Tab) 20 mg PO [facility] Stop: 10/05/22 20:59 Last Admin: 09/16/22 21:37 Dose: 20 mg Finasteride (Finasteride 5 Mg Tab) 5 mg PO QAM [facility] Stop: 10/06/22 08:59 Last Admin: 09/17/22 08:33 Dose: 5 mg Fluticasone/Vilanterol (Fluticasone/Vilanterol 100/25mcg 14 Puffs/Inhaler) 1 pu ffs INH DAILY [facility] Stop: 10/06/22 08:59 Last Admin: 09/17/22 08:33 Dose: 1 puffs Furosemide (Furosemide 80 Mg Tab) 80 mg PO BID@0900,1200 [facility] Stop: 10/08/22 08:59 Last Admin: 09/16/22 16:58 Dose: Not Given Glucagon (Glucagon For Inj 1 Mg Vial) 1 mg SQ UD PRN; Protocol PRN Reason: Hypoglycemia Protocol Stop: 10/05/22 10:51 Glucose (Glucose 10 Tab/Tube) 4 - 8 tab PO UD PRN; Protocol PRN Reason: Hypoglycemia Treatment Stop: 10/05/22 10:51 Glucose (Glucose 40% Gel 15 Gm Tube) 15 - 30 gm PO UD PRN; Protocol PRN Reason: Hypoglycemia Protocol Stop: 10/05/22 10:51 Heparin Sodium (Porcine) (Heparin Sod 5,000 Unit/0.5 Ml Vial) 5,000 units SQ Q12 [facility] Stop: 10/05/22 20:59 Last Admin: 09/17/22 12:50 Dose: 5,000 units Heparin Sodium (Porcine) (Heparin 100 Unit/Ml 5ml Flush) 5 ml FLUSH PRN PRN PRN Reason: Flush Stop: 10/06/22 08:11 Last Admin: 09/15/22 14:30 Dose: 5 ml Hydroxyzine HCl (Hydroxyzine Hcl 25 Mg Tab) 25 mg PO TID PRN PRN Reason: Anxiety Stop: 10/05/22 11:17 Last Admin: 09/08/22 20:15 Dose: 25 mg Insulin Aspart (Insulin Aspart Per Unit Charge) 0 units SC ACHS [facility] Stop: 10/05/22 11:29 Last Admin: 09/17/22 12:47 Dose: 9 units Insulin Glargine (Lantus Per Unit Charge) 15 units SQ BID [facility] Stop: 10/05/22 20:59 Last Admin: 09/17/22 08:45 Dose: 15 units Loperamide HCl (Loperamide Hcl 2 Mg Cap) 2 mg PO QID PRN PRN Reason: Diarrhea Stop: 10/05/22 11:25 Metolazone (Metolazone 5 Mg Tablet) 5 mg PO DAILY PRN PRN Reason: WEIGHT GAIN >3LBS Stop: 10/07/22 10:59 Metoprolol Succinate (Metoprolol Succ 50mg Ext Rel Tab) 50 mg PO QAM [facility] Stop: 10/05/22 11:17 Last Admin: 09/17/22 08:35 Dose: 50 mg Metoprolol Succinate (Metoprolol Succ 25mg Ext Rel Tab) 25 mg PO QPM [facility] Stop: 10/05/22 20:59 Last Admin: 09/16/22 21:38 Dose: 25 mg Miscellaneous (Carbohydrates For Hypoglycemia ) 15 - 30 gm PO UD PRN PRN Reason: Hypoglycemia Protocol Stop: 10/05/22 10:51 Pantoprazole Sodium (Pantoprazole 40 Mg Tab) 40 mg PO QAM [facility] Stop: 10/06/22 08:59 Last Admin: 09/17/22 08:36 Dose: 40 mg Promethazine HCl (Promethazine Hcl 25 Mg Tab) 25 mg PO Q6H PRN PRN Reason: NAUSEA/VOMITING Stop: 10/05/22 11:17 Sertraline HCl (Sertraline Hcl 50 Mg Tablet) [facility] Stop: 10/06/22 08:59 Last Admin: 09/17/22 08:36 Dose: 50 mg Spironolactone (Spironolactone 12.5 Mg Tab) 12.5 [facility] Stop: 10/06/22 08:59 Last Admin: 09/16/22 09:52 Dose: 12.5 mg Tramadol HCl (Tramadol Hcl 50 Mg Tablet) 50 mg PO Q4H PRN PRN Reason: breakthrough ppain Stop: 10/17/22 12:17 Last Admin: 09/17/22 14:19 Dose: 50 mg Umeclidinium [place] (Umeclidinium [place] 62.5mcg/Blister 7 Puffs/Inhaler) 1 puffs INH DAILY [facility] Stop: 10/06/22 08:59 Last Admin: 09/17/22 08:37 Dose: 1 puffs Vitamin D (Cholecalciferol 1,000 Units 25 Mcg Tab) 2,000 units [facility] Stop: 10/06/22 08:59 Last Admin: 09/17/22 08:32 Dose: 2,000 units (10) CHF (congestive heart failure) Heart failure chronicity: acute Heart failure type: unspecified Qualified Code(s): I50.9 - Heart failure, unspecified
[2022-09-17] MEDS: METOPROLOL SUCC 25MG EXT REL TAB PO SCH (21:15)
[2022-09-17] MEDS: FAMOTIDINE 20 MG TAB PO SCH (21:15)
[2022-09-17] MEDS: ATORVASTATIN 40 MG TAB PO SCH (21:15)
[2022-09-18] MEDS: ACETAMINOPHEN 500 MG TAB PO SCH ×3 (05:33→22:50)
[2022-09-18 07:47] LABS: Hematocrit (blood only) 37.1 % (42.0-52.0); Hemoglobin 12.4 g/dl (14.0-18.0); Mean Corpuscular Hgb Conc 33.4 g/dL (32.0-36.0); Mean Corpuscular Volume 92.8 fL (80.0-100.0); Mean Platelet Volume 12.1 fL (9.4-12.4); Platelet Count 173 K/uL (130-400); RDW Coefficient of Variation 14.6 % (11.5-14.5); RDW Standard Deviation 49.8 fL (36.4-46.3); White Blood Count 10.98 K/ul (4.8-10.8)
[2022-09-18 08:05] LABS: BUN Creatinine Ratio 38.3 (10-20); Calcium 9.2 mg/dl (8.6-10.3); Creatinine Clr Calc Pharmacy 29.9 ml/min; Est GFR (African American) 29.6 ml/min; Est GFR (Non-African American) 25.5 ml/min; Potassium 4.8 mmol/L (3.5-5.1)
[2022-09-18] MEDS: INSULIN ASPART PER UNIT CHARGE SC SCH ×4 (09:15→22:25)
[2022-09-18] MEDS: FINASTERIDE 5 MG TAB PO SCH (09:16)
[2022-09-18] MEDS: ASPIRIN 81 MG ECTAB PO SCH (09:16)
[2022-09-18] MEDS: allopurinoL 300 MG TAB PO SCH (09:16)
[2022-09-18] MEDS: CHOLECALCIFEROL 1,000 UNITS 25 MCG TAB PO SCH (09:16)
[2022-09-18] MEDS: HEPARIN SOD 5,000 UNIT/0.5 ML VIAL SQ SCH ×2 (09:17→20:22)
[2022-09-18] MEDS: SERTRALINE HCL 50 MG TABLET PO SCH (09:17)
[2022-09-18] MEDS: PANTOprazole 40 MG TAB PO SCH (09:17)
[2022-09-18] MEDS: FLUTICASONE/VILANTEROL 100/25MCG 14 PUFFS/INHALER INH SCH (09:17)
[2022-09-18] MEDS: METOPROLOL SUCC 50MG EXT REL TAB PO SCH (09:17)
[2022-09-18] MEDS: UMECLIDINIUM BROMIDE 62.5MCG/BLISTER 7 PUFFS/INHALER INH SCH (09:18)
[2022-09-18] MEDS: LANTUS PER UNIT CHARGE SQ SCH ×2 (09:21→20:48)
[2022-09-18] MEDS: clonazePAM 0.5 MG TAB PO SCH ×3 (09:21→20:21)
--- NOTE | 2022-09-18 09:43 | Hospitalist Progress Note ---
Date of Service September 18, 2022 Assessment & Plan (1) Cervicogenic headache: Plan: Per neuro, Cervicogenic headache, Cervical dystonia --Outpatient MRI done on 09/02/22 showed No evidence of intracranial metastatic disease or acute intracranial abnormality. Finding seen in the setting of normal pressure hydrocephalus. Recommend clinical correlation. Moderate chronic small vessel ischemic disease. --Head CT:This study is nearly nondiagnostic secondary to patient positioning. No acute intracranial abnormality identified on this markedly limited study. Consider repeat imaging if there is further clinical merit. --Neck CT:There is no evidence of fracture or subluxation involving the cervical spine. Osteopenia and spondylotic change LP done and is unremarkable based on fluid analysis. Protein elevated, pressure WNL Neurologist recommendations noted -Had drowsiness and confusion on 09/09/22 likely due to medication side effects in view of poor renal function and baclofen was discontinued Regimen adjusted today due to worsening but similar pain - started on Klonopin 0.5mg TID, scheduled Tylenol 1,000mg TID, transitioned Flexeril to PRN and scheduled qHS, discontinued gabapentin Pain mgmt evaluated- recommends Botox injection but can only be done as out patient. S/p cervical trigger point injections and nerve blocks by pain mgmt this morning with some pain relief, improved ROM Avoid NSAIDs due to CKD warm compresses ordered to neck and upper back. (2) Cervical dystonia: (3) Cervicalgia: (4) Hyponatremia: Plan: Na 127 today. FeNa is 1.7. Possibly 2/2 NSAID use recently but differential is broad with known CKD, h/o lung cancer and persistent pain causing SIADH. Urine osm are low normal, no polydipsia. Euvolemic. Will ensure good control of pain/nausea as much as possible. Adding scheduled flexeril at night, add trolamine topical and increase tramadol given. (5) UTI (urinary tract infection): Plan: Present on arrival Urine culture growing Enterococcus faecalis Completed ampicillin treatment (6) Metastatic primary lung cancer: Plan: Follows with Dr. Bravo - received chemo x 1 but didn't tolerate, not planning for additional chemo at this point (7) Sleep apnea: Plan: Wears O2 at night - 2-2.5 L (8) Left conjunctivitis: Plan: Tx complete (9) CKD (chronic kidney disease): Plan: around his baseline, noted two doses of naproxen in 48 hours for severe pain, will not continue with this given hyponatremia and slightly elevated K at one point. Monitor renal function Continue home lasix (10) CHF (congestive heart failure): Plan: chronic, euvolemic, stable. 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 Cont current therapy. Plan Continue other home medications as appropriate DVT Px:Heparin SQ Code Status: Full code CM working on placement for rehab. Will need arrangement with Pain mgt to schedule injection above prior to dc. Initial facilities declined but search expanded and [facility] updated. Yara Juan [facility] and Anticipated Discharge Date Admission Date: September 06, 2022 Subjective 77 yo M with cervical dystonia x 3 weeks persistent headache reports he is having some increased frontal headache today we discussed his medication regimen with his who is at bedside will add trolamine topical will give one additional tramadol now and add scheduled cyclobenzaprine qHS Botox injection therapy cannot be givn inpatient. Review of Systems Review of Systems: All systems were reviewed and negative except as indicated on subjective above. Physical Exam Physical Exam: CONSTITUTIONAL: WNWD, vitals as above, generally well-appearing EYES: normal conjunctivae, no scleral icterus ENT: external ear and nose normal, MMM NECK: trachea midline RESPIRATORY: clear to auscultation bilaterally, no crackles, rales or wheezes, normal respiratory effort CARDIOVASCULAR: regular rate and rhythm, S1 and 2 heard without murmurs, gallops or rubs, no JVD, no peripheral edema CHEST: inspection of chest was normal GASTROINTESTINAL: soft, nontender, ND, no guarding MUSCULOSKELETAL: strength 5/5 throughout, head is normocephalic and atraumatic, very restricted ROM with head sidebent to the left, flexed forward and rotated to the left. SKIN: warm and dry NEUROLOGIC: CN 2-12 grossly intact, no sensory deficit, normal cognition, normal speech, no tremor PSYCHIATRIC: alert cooperative and oriented to person, place and time. Euthymic mood, makes good eye contact, language grossly intact, recent and remote memory grossly intact. Results & Data Results & Data Vital Signs (Past 12 Hours) Vital Signs Temp Pulse Resp BP Pulse Ox O2 Del Method 09/18/22 07:27 Room Air 09/18/22 07:21 36.3 C L 67 18 109/66 99 Room Air Laboratory Results Short CBC 09/18/22 Range/Units 07:26 WBC 10.98 H (4.8-10.8) K/ul Hgb 12.4 L (14.0-18.0) g/dl Hct 37.1 L (42.0-52.0) % Plt Count 173 (130-400) K/uL BMP 09/18/22 07:26 Sodium 129 L Potassium 4.8 Chloride 97 L Carbon Dioxide 24 BUN 90 H Creatinine 2.35 H Glucose 142 H Calcium 9.2 Medications Administered Current Inpatient Medications Acetaminophen (Acetaminophen 500 Mg Tab) 1,000 mg PO Q8 [facility] Stop: 10/15/22 21:59 Last Admin: 09/18/22 05:33 Dose: 1,000 mg Albuterol (Albuterol 0.083% Nebu Soln 3 Ml Vial) 2.5 mg INH Q4 PRN; Protocol PRN Reason: cough,SOB Stop: 10/05/22 11:17 Albuterol (Albut/Ipratrop 3mg/0.5mg Neb 3 Ml Vial) 3 ml INH Q4H PRN; Protocol PRN Reason: cough,SOB Stop: 10/05/22 11:17 Last Admin: 09/05/22 21:50 Dose: 3 ml Albuterol (Albuterol Hfa 8 Gm Inhaler) 2 puffs INH QID PRN PRN Reason: Shortness Of Breath Stop: 10/05/22 11:17 Allopurinol (Allopurinol 300 Mg Tab) 300 mg PO QAM [facility] Stop: 10/06/22 08:59 Last Admin: 09/18/22 09:16 Dose: 300 mg Aspirin (Aspirin 81 Mg Ectab) 81 mg PO QAM [facility] Stop: 10/06/22 08:59 Last Admin: 09/18/22 09:16 Dose: 81 mg Atorvastatin Calcium (Atorvastatin 40 Mg Tab) 40 mg PO HS [facility] Stop: 10/05/22 20:59 Last Admin: 09/17/22 21:15 Dose: 40 mg Clonazepam (Clonazepam 0.5 Mg Tab) 0.5 mg PO TID [facility] Stop: 10/15/22 20:59 Last Admin: 09/18/22 09:21 Dose: 0.5 mg Cyclobenzaprine HCl (Cyclobenzaprine Hcl 5 Mg Tab) 5 mg PO TID PRN PRN Reason: Muscle Spasm Stop: 10/12/22 08:59 Dextrose (Dextrose 50% 50 Ml Syringe) 25 - 50 ml IV UD PRN; Protocol PRN Reason: Hypoglycemia Protocol Stop: 10/05/22 10:51 Famotidine (Famotidine 20 Mg Tab) 20 mg PO HS [facility] Stop: 10/05/22 20:59 Last Admin: 09/17/22 21:15 Dose: 20 mg Finasteride (Finasteride 5 Mg Tab) 5 mg PO QAM [facility] Stop: 10/06/22 08:59 Last Admin: 09/18/22 09:16 Dose: 5 mg Fluticasone/Vilanterol (Fluticasone/Vilanterol 100/25mcg 14 Puffs/Inhaler) 1 puffs INH DAILY [facility] Stop: 10/06/22 08:59 Last Admin: 09/18/22 09:17 Dose: 1 puffs Furosemide (Furosemide 80 Mg Tab) 80 mg PO BID@0900,1200 [facility] Stop: 10/08/22 08:59 Last Admin: 09/16/22 16:58 Dose: Not Given Glucagon (Glucagon For Inj 1 Mg Vial) 1 mg SQ UD PRN; Protocol PRN Reason: Hypoglycemia Protocol Stop: 10/05/22 10:51 Glucose (Glucose 10 Tab/Tube) 4 - 8 tab PO UD PRN; Protocol PRN Reason: Hypoglycemia Treatment Stop: 10/05/22 10:51 Glucose (Glucose 40% Gel 15 Gm Tube) 15 - 30 gm PO UD PRN; Protocol PRN Reason: Hypoglycemia Protocol Stop: 10/05/22 10:51 Heparin Sodium (Porcine) (Heparin Sod 5,000 Unit/0.5 Ml Vial) 5,000 units SQ Q12 [facility] Stop: 10/05/22 20:59 Last Admin: 09/18/22 09:17 Dose: Not Given Heparin Sodium (Porcine) (Heparin 100 Unit/Ml 5ml Flush) 5 ml FLUSH PRN PRN PRN Reason: Flush Stop: 10/06/22 08:11 Last Admin: 09/15/22 14:30 Dose: 5 ml Hydroxyzine HCl (Hydroxyzine Hcl 25 Mg Tab) 25 mg PO TID PRN PRN Reason: Anxiety Stop: 10/05/22 11:17 Last Admin: 09/08/22 20:15 Dose: 25 mg Insulin Aspart (Insulin Aspart Per Unit Charge) 0 units SC ACHS [facility] Stop: 10/05/22 11:29 Last Admin: 09/18/22 09:15 Dose: 4 units Insulin Glargine (Lantus Per Unit Charge) 15 units SQ BID [facility] Stop: 10/05/22 20:59 Last Admin: 09/18/22 09:21 Dose: 15 units Loperamide HCl (Loperamide Hcl 2 Mg Cap) 2 mg PO QID PRN PRN Reason: Diarrhea Stop: 10/05/22 11:25 Metolazone (Metolazone 5 Mg Tablet) 5 mg PO DAILY PRN PRN Reason: WEIGHT GAIN >3LBS Stop: 10/07/22 10:59 Metoprolol Succinate (Metoprolol Succ 50mg Ext Rel Tab) [facility] [place] Stop: 10/05/22 11:17 Last Admin: 09/18/22 09:17 Dose: 50 mg Metoprolol Succinate (Metoprolol Succ 25mg Ext Rel Tab) 25 mg PO QPM [facility] Stop: 10/05/22 20:59 Last Admin: 09/17/22 21:15 Dose: 25 mg Miscellaneous (Carbohydrates For Hypoglycemia ) 15 - 30 gm PO UD PRN PRN Reason: Hypoglycemia Protocol Stop: 10/05/22 10:51 Pantoprazole Sodium (Pantoprazole 40 Mg Tab) 40 mg PO [facility] Stop: 10/06/22 08:59 Last Admin: 09/18/22 09:17 Dose: 40 mg Promethazine HCl (Promethazine Hcl 25 Mg Tab) 25 mg PO Q6H PRN PRN Reason: NAUSEA/VOMITING Stop: 10/05/22 11:17 Sertraline HCl (Sertraline Hcl 50 Mg Tablet) 50 [facility] [place] Stop: 10/06/22 08:59 Last Admin: 09/18/22 09:17 Dose: 50 mg Spironolactone (Spironolactone 12.5 Mg Tab) 12.5 mg [facility] [place] Stop: 10/06/22 08:59 Last Admin: 09/16/22 09:52 Dose: 12.5 mg Tramadol HCl (Tramadol Hcl 50 Mg Tablet) 50 mg PO Q4H PRN PRN Reason: breakthrough ppain Stop: 10/17/22 12:17 Last Admin: 09/17/22 21:18 Dose: 50 mg Umeclidinium [place] (Umeclidinium [place] 62.5mcg/Blister 7 Puffs/Inhaler) 1 puffs INH DAILY [facility] Stop: 10/06/22 08:59 Last Admin: 09/18/22 09:18 Dose: 1 puffs Vitamin D (Cholecalciferol 1,000 Units 25 Mcg Tab) 2,000 units PO QAM [facility] Stop: 10/06/22 08:59 Last Admin: 09/18/22 09:16 Dose: 2,000 units (10) CHF (congestive heart failure) Heart failure chronicity: acute Heart failure type: unspecified Qualified Code(s): I50.9 - Heart failure, unspecified
[2022-09-18] MEDS: SODIUM CHLORIDE 0.9% 1000ML 1,000 ML IV SCH ×2 (10:25→18:39)
[2022-09-18] MEDS ORDERED: traMADol HCL 50 MG TABLET PO STA (17:14)
[2022-09-18] MEDS: ATORVASTATIN 40 MG TAB PO SCH (20:21)
[2022-09-18] MEDS: FAMOTIDINE 20 MG TAB PO SCH (20:21)
[2022-09-18] MEDS: CYCLOBENZAPRINE HCL 5 MG TAB PO SCH (20:22)
[2022-09-18] MEDS: TROLAMINE SALICYLATE 10% CRM 255 APPLN/85 GM TUBE EXT SCH (20:23)
[2022-09-18] MEDS: METOPROLOL SUCC 25MG EXT REL TAB PO SCH (20:23)
[2022-09-19] MEDS: HEPARIN 100 UNIT/ML 5ML FLUSH FLUSH PRN ×2 (01:43→12:59)
[2022-09-19] MEDS: ACETAMINOPHEN 500 MG TAB PO SCH ×3 (05:59→20:52)
[2022-09-19 08:14] LABS: BUN Creatinine Ratio 47.2 (10-20); Calcium 9.2 mg/dl (8.6-10.3); Creatinine Clr Calc Pharmacy 43.2 ml/min; Est GFR (African American) 46.1 ml/min; Est GFR (Non-African American) 39.8 ml/min
[2022-09-19] MEDS: LANTUS PER UNIT CHARGE SQ SCH ×2 (09:06→20:45)
[2022-09-19] MEDS: INSULIN ASPART PER UNIT CHARGE SC SCH ×4 (09:06→20:45)
[2022-09-19] MEDS: ASPIRIN 81 MG ECTAB PO SCH (09:15)
[2022-09-19] MEDS: HEPARIN SOD 5,000 UNIT/0.5 ML VIAL SQ SCH ×2 (09:15→20:52)
[2022-09-19] MEDS: traMADol HCL 50 MG TABLET PO PRN ×2 (09:15→18:15)
[2022-09-19] MEDS: clonazePAM 0.5 MG TAB PO SCH ×3 (09:15→20:52)
[2022-09-19] MEDS: METOPROLOL SUCC 50MG EXT REL TAB PO SCH (09:16)
[2022-09-19] MEDS: allopurinoL 300 MG TAB PO SCH (09:16)
[2022-09-19] MEDS: UMECLIDINIUM BROMIDE 62.5MCG/BLISTER 7 PUFFS/INHALER INH SCH (09:16)
[2022-09-19] MEDS: SERTRALINE HCL 50 MG TABLET PO SCH (09:16)
[2022-09-19] MEDS: FINASTERIDE 5 MG TAB PO SCH (09:16)
[2022-09-19] MEDS: PANTOprazole 40 MG TAB PO SCH (09:16)
[2022-09-19] MEDS: CHOLECALCIFEROL 1,000 UNITS 25 MCG TAB PO SCH (09:16)
[2022-09-19] MEDS: TROLAMINE SALICYLATE 10% CRM 255 APPLN/85 GM TUBE EXT SCH ×2 (09:17→20:53)
[2022-09-19] MEDS: FLUTICASONE/VILANTEROL 100/25MCG 14 PUFFS/INHALER INH SCH (09:17)
--- NOTE | 2022-09-19 17:41 | Hospitalist Progress Note ---
Date of Service September 19, 2022 Assessment & Plan (1) Cervicogenic headache: Plan: Per neuro, Cervicogenic headache, Cervical dystonia --Outpatient MRI done on 09/02/22 showed No evidence of intracranial metastatic disease or acute intracranial abnormality. Finding seen in the setting of normal pressure hydrocephalus. Recommend clinical correlation. Moderate chronic small vessel ischemic disease. --Head CT:This study is nearly nondiagnostic secondary to patient positioning. No acute intracranial abnormality identified on this markedly limited study. Consider repeat imaging if there is further clinical merit. --Neck CT:There is no evidence of fracture or subluxation involving the cervical spine. Osteopenia and spondylotic change LP done and is unremarkable based on fluid analysis. Protein elevated, pressure WNL Neurologist recommendations noted -Had drowsiness and confusion on 09/09/22 likely due to medication side effects in view of poor renal function and baclofen was discontinued Regimen adjusted today due to worsening but similar pain - started on Klonopin 0.5mg TID, scheduled Tylenol 1,000mg TID, transitioned Flexeril to PRN and scheduled qHS, discontinued gabapentin Pain mgmt evaluated- recommends Botox injection but can only be done as out patient. S/p cervical trigger point injections and nerve blocks by pain mgmt this morning with some pain relief, improved ROM Avoid NSAIDs due to CKD Warm compresses ordered to neck and upper back. No pain at rest and movement of the neck towards the right side is limited with minimal pain Advised to continue the physical therapy (2) Cervical dystonia: Plan: As above (3) Cervicalgia: Plan: Secondary to cervical dystocia (4) Hyponatremia: Plan: Na 127 today. FeNa is 1.7. Possibly 2/2 NSAID use recently but differential is broad with known CKD, h/o lung cancer and persistent pain causing SIADH. Urine osm are low normal, no polydipsia. Euvolemic. Sodium has come up to 134-we will continue to monitor (5) UTI (urinary tract infection): Plan: Present on arrival Urine culture growing Enterococcus faecalis Completed ampicillin treatment (6) Metastatic primary lung cancer: Plan: Follows with Dr. Bravo - received chemo x 1 but didn't tolerate, not planning for additional chemo at this point No acute respiratory symptoms (7) Sleep apnea: Plan: Wears O2 at night - 2-2.5 L (8) Left conjunctivitis: Plan: Tx complete (9) CKD (chronic kidney disease): Plan: around his baseline, noted two doses of naproxen in 48 hours for severe pain, will not continue with this given hyponatremia and slightly elevated K at one point. Monitor renal function Continue home lasix Creatinine remains stable at 1.63 as of 09/19/2022 (10) CHF (congestive heart failure): Plan: chronic, euvolemic, stable. 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 Cont current therapy. Plan Continue other home medications as appropriate DVT Px:Heparin SQ Code Status: Full code CM working on placement for rehab. Will need arrangement with Pain mgt to schedule injection above prior to dc. Initial facilities declined but search expanded and [facility] updated. Admission and Anticipated Discharge Date Admission Date: September 06, 2022 Subjective 09/19/2022 The patient was seen and examined in medical floor He has been complaining of headache and neck pain Denies any abdominal pain, nausea or vomiting, no chest pain or palpitation No numbness and or tingling in the extremities Review of Systems Review of Systems: All systems reviewed and are unremarkable except as noted below Physical Exam Physical Exam: Lying in bed comfortably Constitutional: well developed, well nourished, + ill appearing and + obese Eyes: PERRL, conjunctivae normal, anicteric sclerae ENMT: external ear and nose normal, oropharynx normal Neck: + torticollis (Neck is flexed to the left) Respiratory: no respiratory distress Auscultation: + diminished lung sounds and + crackles (Minimal crackles at the bases) Cardiovascular: Rate/Rhythm: regular rate and regular rhythm; not tachycardic Heart Sounds: normal S1 and normal S2; no murmur Extremities: + edema (1+ edema bilaterally) Gastrointestinal (Abdomen): Inspection/Auscultation: normal bowel sounds; abdomen not distended Percussion/Palpation: abdomen soft; abdomen nontender Musculoskeletal: No acute arthritis involving any joint. Movement of the neck produces some pain in the left lateral side without radiation Neurologic: Alert, awake and oriented x3. Lymphatic: no cervical or axillary lymphadenopathy Results & Data Results & Data Vital Signs (Past 12 Hours) Vital Signs Temp Pulse Resp BP Pulse Ox O2 Del Method 09/19/22 15:46 36.7 C 94 H 16 128/74 97 Room Air 09/19/22 10:54 Room Air 09/19/22 07:46 37.0 C 71 16 116/68 97 Room Air Laboratory Results [facility] 09/19/22 07:41 Sodium 134 L Potassium 5.0 Chloride 106 Carbon Dioxide 23 BUN 77 H Creatinine 1.63 H D Glucose 133 H Calcium 9.2 Medications Administered Current Inpatient Medications Acetaminophen (Acetaminophen 500 Mg Tab) 1,000 mg PO Q8 [facility]ON Stop: 10/15/22 21:59 Last Admin: 09/19/22 12:59 Dose: 1,000 mg Albuterol (Albuterol 0.083% Nebu Soln 3 Ml Vial) 2.5 mg INH Q4 PRN; Protocol PRN Reason: cough,SOB Stop: 10/05/22 11:17 Albuterol (Albut/Ipratrop 3mg/0.5mg Neb 3 Ml Vial) 3 ml INH Q4H PRN; Protocol PRN Reason: cough,SOB Stop: 10/05/22 11:17 Last Admin: 09/05/22 21:50 Dose: 3 ml Albuterol (Albuterol Hfa 8 Gm Inhaler) 2 puffs INH QID PRN PRN Reason: Shortness Of Breath Stop: 10/05/22 11:17 Allopurinol (Allopurinol 300 Mg Tab) 300 mg PO QAM [facility]ON Stop: 10/06/22 08:59 Last Admin: 09/19/22 09:16 Dose: 300 mg Aspirin (Aspirin 81 Mg Ectab) 81 mg PO QAM [facility] Stop: 10/06/22 08:59 Last Admin: 09/19/22 09:15 Dose: 81 mg Atorvastatin Calcium (Atorvastatin 40 Mg Tab) 40 mg PO HS [facility]ON Stop: 10/05/22 20:59 Last Admin: 09/18/22 20:21 Dose: 40 mg Clonazepam (Clonazepam 0.5 Mg Tab) 0.5 mg PO TID [facility] Stop: 10/15/22 20:59 Last Admin: 09/19/22 12:59 Dose: 0.5 mg Cyclobenzaprine HCl (Cyclobenzaprine Hcl 5 Mg Tab) 5 mg PO TID PRN PRN Reason: Muscle Spasm Stop: 10/12/22 08:59 Cyclobenzaprine HCl (Cyclobenzaprine Hcl 5 Mg Tab) 5 mg PO HS DAMON Stop: 10/18/22 20:59 Last Admin: 09/18/22 20:22 Dose: 5 mg Dextrose (Dextrose 50% 50 Ml Syringe) 25 - 50 ml IV UD PRN; Protocol PRN Reason: Hypoglycemia Protocol Stop: 10/05/22 10:51 Famotidine (Famotidine 20 Mg Tab) 20 mg PO HS [facility]ON Stop: 10/05/22 20:59 Last Admin: 09/18/22 20:21 Dose: 20 mg Finasteride (Finasteride 5 Mg Tab) 5 mg PO QAM [facility] Stop: 10/06/22 08:59 Last Admin: 09/19/22 09:16 Dose: 5 mg Fluticasone/Vilanterol (Fluticasone/Vilanterol 100/25mcg 14 Puffs/Inhaler) 1 puffs INH DAILY [facility] Stop: 10/06/22 08:59 Last Admin: 09/19/22 09:17 Dose: 1 puffs Furosemide (Furosemide 80 Mg Tab) 80 mg PO BID@0900,1200 [facility] Stop: 10/08/22 08:59 Last Admin: 09/16/22 16:58 Dose: Not Given Glucagon (Glucagon For Inj 1 Mg Vial) 1 mg SQ UD PRN; Protocol PRN Reason: Hypoglycemia Protocol Stop: 10/05/22 10:51 Glucose (Glucose 10 Tab/Tube) 4 - 8 tab PO UD PRN; Protocol PRN Reason: Hypoglycemia Treatment Stop: 10/05/22 10:51 Glucose (Glucose 40% Gel 15 Gm Tube) 15 - 30 gm PO UD PRN; Protocol PRN Reason: Hypoglycemia Protocol Stop: 10/05/22 10:51 Heparin Sodium (Porcine) (Heparin Sod 5,000 Unit/0.5 Ml Vial) 5,000 units SQ Q12 [facility]ON Stop: 10/05/22 20:59 Last Admin: 09/19/22 09:15 Dose: 5,000 units Heparin Sodium (Porcine) (Heparin 100 Unit/Ml 5ml Flush) 5 ml FLUSH PRN PRN PRN Reason: Flush Stop: 10/06/22 08:11 Last Admin: 09/19/22 12:59 Dose: 5 ml Hydroxyzine HCl (Hydroxyzine Hcl 25 Mg Tab) 25 mg PO TID PRN PRN Reason: Anxiety Stop: 10/05/22 11:17 Last Admin: 09/08/22 20:15 Dose: 25 mg Insulin Aspart (Insulin Aspart Per Unit Charge) 0 units SC ACHS [facility] Stop: 10/05/22 11:29 Last Admin: 09/19/22 12:56 Dose: 8 units Insulin Glargine (Lantus Per Unit Charge) 15 units SQ BID [facility] Stop: 10/05/22 20:59 Last Admin: 09/19/22 09:06 Dose: 15 units Loperamide HCl (Loperamide Hcl 2 Mg Cap) 2 mg PO QID PRN PRN Reason: Diarrhea Stop: 10/05/22 11:25 Metolazone (Metolazone 5 Mg Tablet) 5 mg PO DAILY PRN PRN Reason: WEIGHT GAIN >3LBS Stop: 10/07/22 10:59 Metoprolol Succinate (Metoprolol Succ 50mg Ext Rel Tab) [facility] [place] Stop: 10/05/22 11:17 Last Admin: 09/19/22 09:16 Dose: 50 mg Metoprolol Succinate (Metoprolol Succ 25mg Ext Rel Tab) 25 mg PO QPM [facility] Stop: 10/05/22 20:59 Last Admin: 09/18/22 20:23 Dose: Not Given Miscellaneous (Carbohydrates For Hypoglycemia ) 15 - 30 gm PO UD PRN PRN Reason: Hypoglycemia Protocol Stop: 10/05/22 10:51 Pantoprazole Sodium (Pantoprazole 40 Mg Tab) [facility] [place] Stop: 10/06/22 08:59 Last Admin: 09/19/22 09:16 Dose: 40 mg Promethazine HCl (Promethazine Hcl 25 Mg Tab) 25 mg PO Q6H PRN PRN Reason: NAUSEA/VOMITING Stop: 10/05/22 11:17 Sertraline HCl (Sertraline Hcl 50 Mg Tablet) [facility] [place] Stop: 10/06/22 08:59 Last Admin: 09/19/22 09:16 Dose: 50 mg Spironolactone (Spironolactone 12.5 Mg Tab) 12.5 [facility] [place] Stop: 10/06/22 08:59 Last Admin: 09/16/22 09:52 Dose: 12.5 mg Tramadol HCl (Tramadol Hcl 50 Mg Tablet) 50 mg PO Q4H PRN PRN Reason: breakthrough ppain Stop: 10/17/22 12:17 Last Admin: 09/19/22 09:15 Dose: 50 mg Trolamine Salicylate (Trolamine Salicylate 10% Crm 255 Appln/85 Gm Tube) 1 appln EXT BID [facility] Stop: 10/18/22 20:59 Last Admin: 09/19/22 09:17 Dose: 1 appln Umeclidinium [place] (Umeclidinium [place] 62.5mcg/Blister 7 Puffs/Inhaler) 1 puffs INH DAILY [facility] Stop: 10/06/22 08:59 Last Admin: 09/19/22 09:16 Dose: 1 puffs Vitamin D (Cholecalciferol 1,000 Units 25 Mcg Tab) 2,000 units PO QAM [facility] Stop: 10/06/22 08:59 Last Admin: 09/19/22 09:16 Dose: 2,000 units (10) CHF (congestive heart failure) Heart failure chronicity: acute Heart failure type: unspecified Qualified Code(s): I50.9 - Heart failure, unspecified
[2022-09-19] MEDS: FAMOTIDINE 20 MG TAB PO SCH (20:52)
[2022-09-19] MEDS: ATORVASTATIN 40 MG TAB PO SCH (20:52)
[2022-09-19] MEDS: METOPROLOL SUCC 25MG EXT REL TAB PO SCH (20:52)
[2022-09-19] MEDS: CYCLOBENZAPRINE HCL 5 MG TAB PO SCH (20:52)
[2022-09-20] MEDS: ACETAMINOPHEN 500 MG TAB PO SCH ×3 (06:40→20:07)
[2022-09-20] MEDS: UMECLIDINIUM BROMIDE 62.5MCG/BLISTER 7 PUFFS/INHALER INH SCH (09:01)
[2022-09-20] MEDS: HEPARIN SOD 5,000 UNIT/0.5 ML VIAL SQ SCH ×2 (09:02→20:07)
[2022-09-20] MEDS: FLUTICASONE/VILANTEROL 100/25MCG 14 PUFFS/INHALER INH SCH (09:02)
[2022-09-20] MEDS: FINASTERIDE 5 MG TAB PO SCH (09:04)
[2022-09-20] MEDS: allopurinoL 300 MG TAB PO SCH (09:04)
[2022-09-20] MEDS: CHOLECALCIFEROL 1,000 UNITS 25 MCG TAB PO SCH (09:04)
[2022-09-20] MEDS: ASPIRIN 81 MG ECTAB PO SCH (09:04)
[2022-09-20] MEDS: PANTOprazole 40 MG TAB PO SCH (09:04)
[2022-09-20] MEDS: METOPROLOL SUCC 50MG EXT REL TAB PO SCH (09:04)
[2022-09-20] MEDS: INSULIN ASPART PER UNIT CHARGE SC SCH ×4 (09:06→20:56)
[2022-09-20] MEDS: SERTRALINE HCL 50 MG TABLET PO SCH (09:06)
[2022-09-20] MEDS: TROLAMINE SALICYLATE 10% CRM 255 APPLN/85 GM TUBE EXT SCH ×2 (09:06→20:08)
[2022-09-20] MEDS: LANTUS PER UNIT CHARGE SQ SCH ×2 (09:07→20:56)
[2022-09-20] MEDS: clonazePAM 0.5 MG TAB PO SCH ×3 (09:10→20:07)
--- NOTE | 2022-09-20 16:50 | Hospitalist Progress Note ---
Date of Service September 20, 2022 Assessment & Plan (1) Cervicogenic headache: Plan: Per neuro, Cervicogenic headache, Cervical dystonia --Outpatient MRI done on 09/02/22 showed No evidence of intracranial metastatic disease or acute intracranial abnormality. Finding seen in the setting of normal pressure hydrocephalus. Recommend clinical correlation. Moderate chronic small vessel ischemic disease. --Head CT:This study is nearly nondiagnostic secondary to patient positioning. No acute intracranial abnormality identified on this markedly limited study. Consider repeat imaging if there is further clinical merit. --Neck CT:There is no evidence of fracture or subluxation involving the cervical spine. Osteopenia and spondylotic change LP done and is unremarkable based on fluid analysis. Protein elevated, pressure WNL Neurologist recommendations noted -Had drowsiness and confusion on 09/09/22 likely due to medication side effects in view of poor renal function and baclofen was discontinued Regimen adjusted today due to worsening but similar pain - started on Klonopin 0.5mg TID, scheduled Tylenol 1,000mg TID, transitioned Flexeril to PRN and scheduled qHS, discontinued gabapentin Pain mgmt evaluated- recommends Botox injection but can only be done as out patient. S/p cervical trigger point injections and nerve blocks by pain mgmt this morning with some pain relief, improved ROM Avoid NSAIDs due to CKD Warm compresses ordered to neck and upper back. No pain at rest and movement of the neck towards the right side is limited with minimal pain Advised to continue the physical therapy Has been getting physical therapy and awaiting placement Symptoms remained stable (2) Cervical dystonia: Plan: As above He has not been trying to keep his his head is straight (3) Cervicalgia: Plan: Secondary to cervical dystocia Not in any acute distress at rest (4) Hyponatremia: Plan: Na 127 today. FeNa is 1.7. Possibly 2/2 NSAID use recently but differential is broad with known CKD, h/o lung cancer and persistent pain causing SIADH. Urine osm are low normal, no polydipsia. Euvolemic. Sodium has come up to 134-we will continue to monitor (5) UTI (urinary tract infection): Plan: Present on arrival Urine culture growing Enterococcus faecalis Completed ampicillin treatment (6) Metastatic primary lung cancer: Plan: Follows with Dr. Bravo - received chemo x 1 but didn't tolerate, not planning for additional chemo at this point No acute respiratory symptoms (7) Sleep apnea: Plan: Wears O2 at night - 2-2.5 L (8) Left conjunctivitis: Plan: Tx complete (9) CKD (chronic kidney disease): Plan: around his baseline, noted two doses of naproxen in 48 hours for severe pain, will not continue with this given hyponatremia and slightly elevated K at one point. Monitor renal function Continue home lasix Creatinine remains stable at 1.63 as of 09/19/2022 (10) CHF (congestive heart failure): Plan: chronic, euvolemic, stable. 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 Cont current therapy. Plan Continue other home medications as appropriate DVT Px:Heparin SQ Code Status: Full code CM working on placement for rehab. Will need arrangement with Pain mgt to schedule injection above prior to dc. Initial facilities declined but search expanded and [facility] updated. Admission and Anticipated Discharge Date Admission Date: September 06, 2022 Subjective 09/19/2022 The patient was seen and examined in medical floor He has been complaining of headache and neck pain Denies any abdominal pain, nausea or vomiting, no chest pain or palpitation No numbness and or tingling in the extremities 09/20/2022 The patient was seen and examined in medical floor He remains stable and still complains of minimal headache and neck pain His neck is still in flexed position towards the left Review of Systems Review of Systems: All systems reviewed and are unremarkable except as noted below Physical Exam Physical Exam: Lying in bed comfortably Constitutional: well developed, well nourished, + ill appearing and + obese Eyes: PERRL, conjunctivae normal, anicteric sclerae ENMT: external ear and nose normal, oropharynx normal Neck: + torticollis (Neck is flexed to the left) Respiratory: no respiratory distress Auscultation: + diminished lung sounds and + crackles (Minimal crackles at the bases) Cardiovascular: Rate/Rhythm: regular rate and regular rhythm; not tachycardic Heart Sounds: normal S1 and normal S2; no murmur Extremities: + edema (1+ edema bilaterally) Gastrointestinal (Abdomen): Inspection/Auscultation: normal bowel sounds; abdomen not distended Percussion/Palpation: abdomen soft; abdomen nontender Musculoskeletal: His neck is in flexed position towards the left with some stiffness Neurologic: Alert, awake and oriented x3. No focal neurodeficit Lymphatic: no cervical or axillary lymphadenopathy Results & Data Results & Data Vital Signs (Past 12 Hours) Vital Signs Temp Pulse Resp BP Pulse Ox O2 Del Method 09/20/22 15:56 37.0 C 75 18 126/72 97 Room Air 09/20/22 08:00 Room Air, Nasal Cannula 09/20/22 07:31 36.6 C 74 16 126/69 98 Room Air Medications Administered Current Inpatient Medications Acetaminophen (Acetaminophen 500 Mg Tab) 1,000 mg PO Q8 [facility]ON Stop: 10/15/22 21:59 Last Admin: 09/20/22 13:34 Dose: 1,000 mg Albuterol (Albuterol 0.083% Nebu Soln 3 Ml Vial) 2.5 mg INH Q4 PRN; Protocol PRN Reason: cough,SOB Stop: 10/05/22 11:17 Albuterol (Albut/Ipratrop 3mg/0.5mg Neb 3 Ml Vial) 3 ml INH Q4H PRN; Protocol PRN Reason: cough,SOB Stop: 10/05/22 11:17 Last Admin: 09/05/22 21:50 Dose: 3 ml Albuterol (Albuterol Hfa 8 Gm Inhaler) 2 puffs INH QID PRN PRN Reason: Shortness Of Breath Stop: 10/05/22 11:17 Allopurinol (Allopurinol 300 Mg Tab) 300 mg PO QAM [facility] Stop: 10/06/22 08:59 Last Admin: 09/20/22 09:04 Dose: 300 mg Aspirin (Aspirin 81 Mg Ectab) 81 mg PO QAM [facility] Stop: 10/06/22 08:59 Last Admin: 09/20/22 09:04 Dose: 81 mg Atorvastatin Calcium (Atorvastatin 40 Mg Tab) 40 mg PO HS [facility]ON Stop: 10/05/22 20:59 Last Admin: 09/19/22 20:52 Dose: 40 mg Clonazepam (Clonazepam 0.5 Mg Tab) 0.5 mg PO TID [facility] Stop: 10/15/22 20:59 Last Admin: 09/20/22 13:34 Dose: 0.5 mg Cyclobenzaprine HCl (Cyclobenzaprine Hcl 5 Mg Tab) 5 mg PO TID PRN PRN Reason: Muscle Spasm Stop: 10/12/22 08:59 Cyclobenzaprine HCl (Cyclobenzaprine Hcl 5 Mg Tab) 5 mg PO HS [facility]ON Stop: 10/18/22 20:59 Last Admin: 09/19/22 20:52 Dose: 5 mg Dextrose (Dextrose 50% 50 Ml Syringe) 25 - 50 ml IV UD PRN; Protocol PRN Reason: Hypoglycemia Protocol Stop: 10/05/22 10:51 Famotidine (Famotidine 20 Mg Tab) 20 mg PO HS [facility]ON Stop: 10/05/22 20:59 Last Admin: 09/19/22 20:52 Dose: 20 mg Finasteride (Finasteride 5 Mg Tab) 5 mg PO QAM [facility] Stop: 10/06/22 08:59 Last Admin: 09/20/22 09:04 Dose: 5 mg Fluticasone/Vilanterol (Fluticasone/Vilanterol 100/25mcg 14 Puffs/Inhaler) 1 puffs INH DAILY [facility] Stop: 10/06/22 08:59 Last Admin: 09/20/22 09:02 Dose: 1 puffs Furosemide (Furosemide 80 Mg Tab) 80 mg PO BID@0900,1200 [facility] Stop: 10/08/22 08:59 Last Admin: 09/16/22 16:58 Dose: Not Given Glucagon (Glucagon For Inj 1 Mg Vial) 1 mg SQ UD PRN; Protocol PRN Reason: Hypoglycemia Protocol Stop: 10/05/22 10:51 Glucose (Glucose 10 Tab/Tube) 4 - 8 tab PO UD PRN; Protocol PRN Reason: Hypoglycemia Treatment Stop: 10/05/22 10:51 Glucose (Glucose 40% Gel 15 Gm Tube) 15 - 30 gm PO UD PRN; Protocol PRN Reason: Hypoglycemia Protocol Stop: 10/05/22 10:51 Heparin Sodium (Porcine) (Heparin Sod 5,000 Unit/0.5 Ml Vial) 5,000 units SQ Q12 [facility]ON Stop: 10/05/22 20:59 Last Admin: 09/20/22 09:02 Dose: 5,000 units Heparin Sodium (Porcine) (Heparin 100 Unit/Ml 5ml Flush) 5 ml FLUSH PRN PRN PRN Reason: Flush Stop: 10/06/22 08:11 Last Admin: 09/19/22 12:59 Dose: 5 ml Hydroxyzine HCl (Hydroxyzine Hcl 25 Mg Tab) 25 mg PO TID PRN PRN Reason: Anxiety Stop: 10/05/22 11:17 Last Admin: 09/08/22 20:15 Dose: 25 mg Insulin Aspart (Insulin Aspart Per Unit Charge) 0 units SC ACHS [facility] Stop: 10/05/22 11:29 Last Admin: 09/20/22 13:36 Dose: Not Given Insulin Glargine (Lantus Per Unit Charge) 15 units SQ BID [facility] Stop: 10/05/22 20:59 Last Admin: 09/20/22 09:07 Dose: 15 units Loperamide HCl (Loperamide Hcl 2 Mg Cap) 2 mg PO QID PRN PRN Reason: Diarrhea Stop: 10/05/22 11:25 Metolazone (Metolazone 5 Mg Tablet) 5 mg PO DAILY PRN PRN Reason: WEIGHT GAIN >3LBS Stop: 10/07/22 10:59 Metoprolol Succinate (Metoprolol Succ 50mg Ext Rel Tab) 50 mg PO [facility] Stop: 10/05/22 11:17 Last Admin: 09/20/22 09:04 Dose: 50 mg Metoprolol Succinate (Metoprolol Succ 25mg Ext Rel Tab) 25 mg PO QPM [facility] Stop: 10/05/22 20:59 Last Admin: 09/19/22 20:52 Dose: 25 mg Miscellaneous (Carbohydrates For Hypoglycemia ) 15 - 30 gm PO UD PRN PRN Reason: Hypoglycemia Protocol Stop: 10/05/22 10:51 Pantoprazole Sodium (Pantoprazole 40 Mg Tab) 40 mg PO [facility] Stop: 10/06/22 08:59 Last Admin: 09/20/22 09:04 Dose: 40 mg Promethazine HCl (Promethazine Hcl 25 Mg Tab) 25 mg PO Q6H PRN PRN Reason: NAUSEA/VOMITING Stop: 10/05/22 11:17 Sertraline HCl (Sertraline Hcl 50 Mg Tablet) [facility] [place]: 10/06/22 08:59 Last Admin: 09/20/22 09:06 Dose: 50 mg Spironolactone (Spironolactone 12.5 Mg Tab) 12.5 mg [facility] [place]: 10/06/22 08:59 Last Admin: 09/16/22 09:52 Dose: 12.5 mg Tramadol HCl (Tramadol Hcl 50 Mg Tablet) 50 mg PO Q4H PRN PRN Reason: breakthrough ppain Stop: 10/17/22 12:17 Last Admin: 09/19/22 18:15 Dose: 50 mg Trolamine Salicylate (Trolamine Salicylate 10% Crm 255 Appln/85 Gm Tube) 1 appln EXT BID [facility] Stop: 10/18/22 20:59 Last Admin: 09/20/22 09:06 Dose: 1 appln Umeclidinium [place] (Umeclidinium [place] 62.5mcg/Blister 7 Puffs/Inhaler) 1 puffs INH DAILY [facility] Stop: 10/06/22 08:59 Last Admin: 09/20/22 09:01 Dose: 1 puffs Vitamin D (Cholecalciferol 1,000 Units 25 Mcg Tab) 2,000 units PO QAM [facility] Stop: 10/06/22 08:59 Last Admin: 09/20/22 09:04 Dose: 2,000 units (10) CHF (congestive heart failure) Heart failure chronicity: acute Heart failure type: unspecified Qualified Code(s): I50.9 - Heart failure, unspecified
[2022-09-20] MEDS: METOPROLOL SUCC 25MG EXT REL TAB PO SCH (20:07)
[2022-09-20] MEDS: ATORVASTATIN 40 MG TAB PO SCH (20:07)
[2022-09-20] MEDS: FAMOTIDINE 20 MG TAB PO SCH (20:07)
[2022-09-20] MEDS: CYCLOBENZAPRINE HCL 5 MG TAB PO SCH (20:07)
[2022-09-21] MEDS: traMADol HCL 50 MG TABLET PO PRN ×2 (03:22→11:28)
[2022-09-21] MEDS: ACETAMINOPHEN 500 MG TAB PO SCH ×3 (05:30→21:39)
[2022-09-21] MEDS: clonazePAM 0.5 MG TAB PO SCH ×2 (07:41→13:27)
[2022-09-21] MEDS: FLUTICASONE/VILANTEROL 100/25MCG 14 PUFFS/INHALER INH SCH (07:41)
[2022-09-21] MEDS: allopurinoL 300 MG TAB PO SCH (07:41)
[2022-09-21] MEDS: UMECLIDINIUM BROMIDE 62.5MCG/BLISTER 7 PUFFS/INHALER INH SCH (07:41)
[2022-09-21] MEDS: TROLAMINE SALICYLATE 10% CRM 255 APPLN/85 GM TUBE EXT SCH ×2 (07:41→21:39)
[2022-09-21] MEDS: PANTOprazole 40 MG TAB PO SCH (07:42)
[2022-09-21] MEDS: ASPIRIN 81 MG ECTAB PO SCH (07:42)
[2022-09-21] MEDS: HEPARIN SOD 5,000 UNIT/0.5 ML VIAL SQ SCH ×2 (07:42→21:39)
[2022-09-21] MEDS: SERTRALINE HCL 50 MG TABLET PO SCH (07:42)
[2022-09-21] MEDS: CHOLECALCIFEROL 1,000 UNITS 25 MCG TAB PO SCH (07:42)
[2022-09-21] MEDS: METOPROLOL SUCC 50MG EXT REL TAB PO SCH (07:42)
[2022-09-21] MEDS: FINASTERIDE 5 MG TAB PO SCH (07:42)
[2022-09-21] MEDS: LANTUS PER UNIT CHARGE SQ SCH ×2 (09:20→21:50)
[2022-09-21] MEDS: INSULIN ASPART PER UNIT CHARGE SC SCH ×4 (09:21→21:41)
--- NOTE | 2022-09-21 17:31 | Hospitalist Progress Note ---
Date of Service September 21, 2022 Assessment & Plan (1) Cervicogenic headache: Plan: Per neuro, Cervicogenic headache, Cervical dystonia --Outpatient MRI done on 09/02/22 showed No evidence of intracranial metastatic disease or acute intracranial abnormality. Finding seen in the setting of normal pressure hydrocephalus. Recommend clinical correlation. Moderate chronic small vessel ischemic disease. --Head CT:This study is nearly nondiagnostic secondary to patient positioning. No acute intracranial abnormality identified on this markedly limited study. Consider repeat imaging if there is further clinical merit. --Neck CT:There is no evidence of fracture or subluxation involving the cervical spine. Osteopenia and spondylotic change LP done and is unremarkable based on fluid analysis. Protein elevated, pressure WNL Neurologist recommendations noted -Had drowsiness and confusion on 09/09/22 likely due to medication side effects in view of poor renal function and baclofen was discontinued Regimen adjusted today due to worsening but similar pain - started on Klonopin 0.5mg TID, scheduled Tylenol 1,000mg TID, transitioned Flexeril to PRN and scheduled qHS, discontinued gabapentin Pain mgmt evaluated- recommends Botox injection but can only be done as out patient. S/p cervical trigger point injections and nerve blocks by pain mgmt this morning with some pain relief, improved ROM Avoid NSAIDs due to CKD Warm compresses ordered to neck and upper back. No pain at rest and movement of the neck towards the right side is limited with minimal pain Advised to continue the physical therapy Has been getting physical therapy and awaiting placement Symptoms remained stable (2) Cervical dystonia: Plan: As above He has not been trying to keep his his head is straight No acute pain in the neck (3) Cervicalgia: Plan: Secondary to cervical dystocia Not in any acute distress at rest Pain and spasm seems to be controlled (4) Hyponatremia: Plan: Na 127 today. FeNa is 1.7. Possibly 2/2 NSAID use recently but differential is broad with known CKD, h/o lung cancer and persistent pain causing SIADH. Urine osm are low normal, no polydipsia. Euvolemic. Sodium has come up to 134-we will continue to monitor We will check PRP tomorrow (5) UTI (urinary tract infection): Plan: Present on arrival Urine culture growing Enterococcus faecalis Completed ampicillin treatment (6) Metastatic primary lung cancer: Plan: Follows with Dr. [place] - received chemo x 1 but didn't tolerate, not planning for additional chemo at this point No acute respiratory symptoms (7) Sleep apnea: Plan: Wears O2 at night - 2-2.5 L (8) Left conjunctivitis: Plan: Tx complete (9) CKD (chronic kidney disease): Plan: around his baseline, noted two doses of naproxen in 48 hours for severe pain, will not continue with this given hyponatremia and slightly elevated K at one point. Monitor renal function Continue home lasix Creatinine remains stable at 1.63 as of 09/19/2022 (10) CHF (congestive heart failure): Plan: chronic, euvolemic, stable. 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 Cont current therapy. Plan Continue other home medications as appropriate DVT Px:Heparin SQ Code Status: Full code CM working on placement for rehab. Will need arrangement with Pain mgt to schedule injection above prior to dc. Initial facilities declined but search expanded and [facility] updated. Admission and Anticipated Discharge Date Admission Date: September 06, 2022 Subjective 09/19/2022 The patient was seen and examined in medical floor He has been complaining of headache and neck pain Denies any abdominal pain, nausea or vomiting, no chest pain or palpitation No numbness and or tingling in the extremities 09/20/2022 The patient was seen and examined in medical floor He remains stable and still complains of minimal headache and neck pain His neck is still in flexed position towards the left 09/21/2022 The patient was seen and examined in medical floor He has been stable and denies any significant symptoms He still has torticollis with some headache but otherwise is stable Review of Systems Review of Systems: All systems reviewed and are unremarkable except as noted below Physical Exam Physical Exam: Lying in bed comfortably Constitutional: well developed, well nourished, + ill appearing and + obese Eyes: PERRL, conjunctivae normal, anicteric sclerae ENMT: external ear and nose normal, oropharynx normal Neck: + torticollis (Neck is flexed to the left) Respiratory: no respiratory distress Auscultation: + diminished lung sounds and + crackles (Minimal crackles at the bases) Cardiovascular: Rate/Rhythm: regular rate and regular rhythm; not tachycardic Heart Sounds: normal S1 and normal S2; no murmur Extremities: + edema (1+ edema bilaterally) Gastrointestinal (Abdomen): Inspection/Auscultation: normal bowel sounds; abdomen not distended Percussion/Palpation: abdomen soft; abdomen nontender Musculoskeletal: Neck is flexed towards the left side with spasm. No pain at rest Neurologic: Alert, awake and oriented x3. Generally weak but no focal neurodeficit Lymphatic: no cervical or axillary lymphadenopathy Results & Data Results & Data Vital Signs (Past 12 Hours) Vital Signs Temp Pulse Resp BP Pulse Ox O2 Del Method 09/21/22 15:00 36.4 C L 84 18 122/77 95 Room Air 09/21/22 11:20 36.5 C 85 18 136/81 96 Room Air 09/21/22 07:40 Room Air 09/21/22 07:48 36.5 C 85 18 135/79 99 Room Air Medications Administered Current Inpatient Medications Acetaminophen (Acetaminophen 500 Mg Tab) 1,000 mg PO Q8 [facility] Stop: 10/15/22 21:59 Last Admin: 09/21/22 13:24 Dose: 1,000 mg Albuterol (Albuterol 0.083% Nebu Soln 3 Ml Vial) 2.5 mg INH Q4 PRN; Protocol PRN Reason: cough,SOB Stop: 10/05/22 11:17 Albuterol (Albut/Ipratrop 3mg/0.5mg Neb 3 Ml Vial) 3 ml INH Q4H PRN; Protocol PRN Reason: cough,SOB Stop: 10/05/22 11:17 Last Admin: 09/05/22 21:50 Dose: 3 ml Albuterol (Albuterol Hfa 8 Gm Inhaler) 2 puffs INH QID PRN PRN Reason: Shortness Of Breath Stop: 10/05/22 11:17 Allopurinol (Allopurinol 300 Mg Tab) 300 mg PO QAM [facility]1983 Stop: 10/06/22 08:59 Last Admin: 09/21/22 07:41 Dose: 300 mg Aspirin (Aspirin 81 Mg Ectab) 81 mg PO QAM [facility]1983 Stop: 10/06/22 08:59 Last Admin: 09/21/22 07:42 Dose: 81 mg Atorvastatin Calcium (Atorvastatin 40 Mg Tab) 40 mg PO HS [facility] Stop: 10/05/22 20:59 Last Admin: 09/20/22 20:07 Dose: 40 mg Clonazepam (Clonazepam 0.5 Mg Tab) 0.5 mg PO TID [facility] Stop: 10/15/22 20:59 Last Admin: 09/21/22 13:27 Dose: Not Given Cyclobenzaprine HCl (Cyclobenzaprine Hcl 5 Mg Tab) 5 mg PO TID PRN PRN Reason: Muscle Spasm Stop: 10/12/22 08:59 Cyclobenzaprine HCl (Cyclobenzaprine Hcl 5 Mg Tab) 5 mg PO HS [facility] Stop: 10/18/22 20:59 Last Admin: 09/20/22 20:07 Dose: 5 mg Dextrose (Dextrose 50% 50 Ml Syringe) 25 - 50 ml IV UD PRN; Protocol PRN Reason: Hypoglycemia Protocol Stop: 10/05/22 10:51 Famotidine (Famotidine 20 Mg Tab) 20 mg PO HS [facility] Stop: 10/05/22 20:59 Last Admin: 09/20/22 20:07 Dose: 20 mg Finasteride (Finasteride 5 Mg Tab) 5 mg PO QAM [facility] Stop: 10/06/22 08:59 Last Admin: 09/21/22 07:42 Dose: 5 mg Fluticasone/Vilanterol (Fluticasone/Vilanterol 100/25mcg 14 Puffs/Inhaler) 1 puffs INH DAILY [facility] Stop: 10/06/22 08:59 Last Admin: 09/21/22 07:41 Dose: 1 puffs Furosemide (Furosemide 80 Mg Tab) 80 mg PO BID@0900,1200 [facility] Stop: 10/08/22 08:59 Last Admin: 09/16/22 16:58 Dose: Not Given Glucagon (Glucagon For Inj 1 Mg Vial) 1 mg SQ UD PRN; Protocol PRN Reason: Hypoglycemia Protocol Stop: 10/05/22 10:51 Glucose (Glucose 10 Tab/Tube) 4 - 8 tab PO UD PRN; Protocol PRN Reason: Hypoglycemia Treatment Stop: 10/05/22 10:51 Glucose (Glucose 40% Gel 15 Gm Tube) 15 - 30 gm PO UD PRN; Protocol PRN Reason: Hypoglycemia Protocol Stop: 10/05/22 10:51 Heparin Sodium (Porcine) (Heparin Sod 5,000 Unit/0.5 Ml Vial) 5,000 units SQ Q12 [facility] Stop: 10/05/22 20:59 Last Admin: 09/21/22 07:42 Dose: 5,000 units Heparin Sodium (Porcine) (Heparin 100 Unit/Ml 5ml Flush) 5 ml FLUSH PRN PRN PRN Reason: Flush Stop: 10/06/22 08:11 Last Admin: 09/19/22 12:59 Dose: 5 ml Hydroxyzine HCl (Hydroxyzine Hcl 25 Mg Tab) 25 mg PO TID PRN PRN Reason: Anxiety Stop: 10/05/22 11:17 Last Admin: 09/08/22 20:15 Dose: 25 mg Insulin Aspart (Insulin Aspart Per Unit Charge) 0 units SC ACHS [facility] Stop: 10/05/22 11:29 Last Admin: 09/21/22 13:24 Dose: 13 units Insulin Glargine (Lantus Per Unit Charge) 15 units SQ BID [facility] Stop: 10/05/22 20:59 Last Admin: 09/21/22 09:20 Dose: 15 units Loperamide HCl (Loperamide Hcl 2 Mg Cap) 2 mg PO QID PRN PRN Reason: Diarrhea Stop: 10/05/22 11:25 Metolazone (Metolazone 5 Mg Tablet) 5 mg PO DAILY PRN PRN Reason: WEIGHT GAIN >3LBS Stop: 10/07/22 10:59 Metoprolol Succinate (Metoprolol Succ 50mg Ext Rel Tab) 50 mg PO QAM [facility] Stop: 10/05/22 11:17 Last Admin: 09/21/22 07:42 Dose: 50 mg Metoprolol Succinate (Metoprolol Succ 25mg Ext Rel Tab) 25 mg PO QPM [facility] Stop: 10/05/22 20:59 Last Admin: 09/20/22 20:07 Dose: 25 mg Miscellaneous (Carbohydrates For Hypoglycemia ) 15 - 30 gm PO UD PRN PRN Reason: Hypoglycemia Protocol Stop: 10/05/22 10:51 Pantoprazole Sodium (Pantoprazole 40 Mg Tab) 40 mg PO QAM [facility] Stop: 10/06/22 08:59 Last Admin: 09/21/22 07:42 Dose: 40 mg Promethazine HCl (Promethazine Hcl 25 Mg Tab) 25 mg PO Q6H PRN PRN Reason: NAUSEA/VOMITING Stop: 10/05/22 11:17 Sertraline HCl (Sertraline Hcl 50 Mg Tablet) 50 mg PO QAM [facility] Stop: 10/06/22 08:59 Last Admin: 09/21/22 07:42 Dose: 50 mg Spironolactone (Spironolactone 12.5 Mg Tab) 12.5 mg PO QAM [facility] Stop: 10/06/22 08:59 Last Admin: 09/16/22 09:52 Dose: 12.5 mg Tramadol HCl (Tramadol Hcl 50 Mg Tablet) 50 mg PO Q4H PRN PRN Reason: breakthrough ppain Stop: 10/17/22 12:17 Last Admin: 09/21/22 11:28 Dose: 50 mg Trolamine Salicylate (Trolamine Salicylate 10% Crm 255 Appln/85 Gm Tube) 1 ap pln EXT BID [facility] Stop: 10/18/22 20:59 Last Admin: 09/21/22 07:41 Dose: 1 appln Umeclidinium [place] (Umeclidinium [place] 62.5mcg/Blister 7 Puffs/Inhaler) 1 puffs INH DAILY [facility] Stop: 10/06/22 08:59 Last Admin: 09/21/22 07:41 Dose: 1 puffs Vitamin D (Cholecalciferol 1,000 Units 25 Mcg Tab) 2,000 units PO QAM [facility] Stop: 10/06/22 08:59 Last Admin: 09/21/22 07:42 Dose: 2,000 units (10) CHF (congestive heart failure) Heart failure chronicity: acute Heart failure type: unspecified Qualified Code(s): I50.9 - Heart failure, unspecified
[2022-09-21] MEDS ORDERED: clonazePAM 0.5 MG TAB PO PRN (17:46)
[2022-09-21] MEDS: METOPROLOL SUCC 25MG EXT REL TAB PO SCH (21:39)
[2022-09-21] MEDS: FAMOTIDINE 20 MG TAB PO SCH (21:39)
[2022-09-21] MEDS: ATORVASTATIN 40 MG TAB PO SCH (21:39)
[2022-09-21] MEDS: CYCLOBENZAPRINE HCL 5 MG TAB PO SCH (21:39)
[2022-09-22] MEDS: HEPARIN 100 UNIT/ML 5ML FLUSH FLUSH PRN (05:40)
[2022-09-22] MEDS: ACETAMINOPHEN 500 MG TAB PO SCH ×2 (05:40→13:02)
[2022-09-22 06:35] LABS: Basophils # (auto) 0.03 K/uL (0-0.2); Basophils % (auto) 0.2 %; Eosinophils # (auto) 0.17 K/uL (0-0.50); Eosinophils % (auto) 1.4 %; Hematocrit (blood only) 39.4 % (42.0-52.0); Hemoglobin 12.6 g/dl (14.0-18.0); Immature Granulocytes # (auto) 0.06 K/uL (0.01-0.20); Immature Granulocytes % (auto) 0.5 %; Lymphocytes # (auto) 1.36 K/uL (1.2-3.4); Lymphocytes % (auto) 11.1 %; Mean Corpuscular Hemoglobin 30.9 pg (25.0-34.0); Mean Corpuscular Volume 96.6 fL (80.0-100.0); Mean Platelet Volume 11.7 fL (9.4-12.4); Monocytes # (auto) 0.59 K/uL (0.11-0.59); Monocytes % (auto) 4.8 %; Neutrophils # (auto) 10.07 K/uL (1.40-6.50); Platelet Count 190 K/uL (130-400); RDW Coefficient of Variation 15.3 % (11.5-14.5); RDW Standard Deviation 54.3 fL (36.4-46.3); Red Blood Count 4.08 M/uL (4.70-6.10); White Blood Count 12.28 K/ul (4.8-10.8)
[2022-09-22 07:35] VITALS: TEMP 97.7; O2SAT 96
[2022-09-22] MEDS: PANTOprazole 40 MG TAB PO SCH (08:55)
[2022-09-22] MEDS: allopurinoL 300 MG TAB PO SCH (08:55)
[2022-09-22] MEDS: METOPROLOL SUCC 50MG EXT REL TAB PO SCH (08:55)
[2022-09-22] MEDS: FINASTERIDE 5 MG TAB PO SCH (08:55)
[2022-09-22] MEDS: CHOLECALCIFEROL 1,000 UNITS 25 MCG TAB PO SCH (08:55)
[2022-09-22] MEDS: ASPIRIN 81 MG ECTAB PO SCH (08:55)
[2022-09-22] MEDS: HEPARIN SOD 5,000 UNIT/0.5 ML VIAL SQ SCH (08:55)
[2022-09-22] MEDS: SERTRALINE HCL 50 MG TABLET PO SCH (08:55)
[2022-09-22] MEDS: INSULIN ASPART PER UNIT CHARGE SC SCH ×2 (08:56→12:52)
[2022-09-22] MEDS: TROLAMINE SALICYLATE 10% CRM 255 APPLN/85 GM TUBE EXT SCH (08:56)
[2022-09-22] MEDS: UMECLIDINIUM BROMIDE 62.5MCG/BLISTER 7 PUFFS/INHALER INH SCH (08:56)
[2022-09-22] MEDS: LANTUS PER UNIT CHARGE SQ SCH (08:57)
[2022-09-22 09:40] LABS: Creatinine Clr Calc Pharmacy 49.2 ml/min; Est GFR (Non-African American) 46.6 ml/min; Potassium 5.2 mmol/L (3.5-5.1)
[2022-09-22] MEDS: FLUTICASONE/VILANTEROL 100/25MCG 14 PUFFS/INHALER INH SCH (09:42)
--- NOTE | 2022-09-22 11:21 | Hospitalist Progress Note ---
Date of Service September 22, 2022 Assessment & Plan (1) Cervicogenic headache: Plan: Per neuro, Cervicogenic headache, Cervical dystonia --Outpatient MRI done on 09/02/22 showed No evidence of intracranial metastatic disease or acute intracranial abnormality. Finding seen in the setting of normal pressure hydrocephalus. Recommend clinical correlation. Moderate chronic small vessel ischemic disease. --Head CT:This study is nearly nondiagnostic secondary to patient positioning. No acute intracranial abnormality identified on this markedly limited study. Consider repeat imaging if there is further clinical merit. --Neck CT:There is no evidence of fracture or subluxation involving the cervical spine. Osteopenia and spondylotic change LP done and is unremarkable based on fluid analysis. Protein elevated, pressure WNL Neurologist recommendations noted -Had drowsiness and confusion on 09/09/22 likely due to medication side effects in view of poor renal function and baclofen was discontinued Regimen adjusted today due to worsening but similar pain - started on Klonopin 0.5mg TID, scheduled Tylenol 1,000mg TID, transitioned Flexeril to PRN and scheduled qHS, discontinued gabapentin Pain mgmt evaluated- recommends Botox injection but can only be done as out patient. S/p cervical trigger point injections and nerve blocks by pain mgmt this morning with some pain relief, improved ROM Avoid NSAIDs due to CKD Warm compresses ordered to neck and upper back. No pain at rest and movement of the neck towards the right side is limited with minimal pain Advised to continue the physical therapy Has been getting physical therapy and awaiting placement He has been accepted to [facility], [place] and will be discharged there at 1:00 today (2) Cervical dystonia: Plan: As above He has not been trying to keep his his head is straight No acute pain in the neck (3) Cervicalgia: Plan: Secondary to cervical dystocia Not in any acute distress at rest Pain and spasm seems to be controlled We will continue the current management for cervicalgia (4) Hyponatremia: Plan: Na 127 today. FeNa is 1.7. Possibly 2/2 NSAID use recently but differential is broad with known CKD, h/o lung cancer and persistent pain causing SIADH. Urine osm are low normal, no polydipsia. Euvolemic. Sodium has come up to 134-we will continue to monitor We will check PRP tomorrow-sodium level remains normal at 139 and creatinine has improved to 1.43 (5) UTI (urinary tract infection): Plan: Present on arrival Urine culture growing Enterococcus faecalis Completed ampicillin treatment (6) Metastatic primary lung cancer: Plan: Follows with Dr. [place] - received chemo x 1 but didn't tolerate, not planning for additional chemo at this point No acute respiratory symptoms (7) Sleep apnea: Plan: Wears O2 at night - 2-2.5 L (8) Left conjunctivitis: Plan: Tx complete (9) CKD (chronic kidney disease): Plan: around his baseline, noted two doses of naproxen in 48 hours for severe pain, will not continue with this given hyponatremia and slightly elevated K at one point. Monitor renal function Continue home lasix Creatinine remains stable at 1.63 as of 09/19/2022 (10) CHF (congestive heart failure): Plan: chronic, euvolemic, stable. 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 Cont current therapy. Plan Continue other home medications as appropriate DVT Px:Heparin SQ Code Status: Full code CM working on placement for rehab. Will need arrangement with Pain mgt to schedule injection above prior to dc. Initial facilities declined but search expanded and [facility] [place] [facility] [place] and will be discharged at 1:00 Admission and Anticipated Discharge Date Admission Date: September 06, 2022 Subjective 09/19/2022 The patient was seen and examined in medical floor He has been complaining of headache and neck pain Denies any abdominal pain, nausea or vomiting, no chest pain or palpitation No numbness and or tingling in the extremities 09/20/2022 The patient was seen and examined in medical floor He remains stable and still complains of minimal headache and neck pain His neck is still in flexed position towards the left 09/21/2022 The patient was seen and examined in medical floor He has been stable and denies any significant symptoms He still has torticollis with some headache but otherwise is stable 09/22/2022 The patient was seen and examined in medical floor He has been stable and complains to have some headache without any other significant symptoms He will be going to [facility], [place] at 1:30 PM today Review of Systems Review of Systems: All systems reviewed and are unremarkable except as noted below Physical Exam Physical Exam: Lying in bed comfortably Constitutional: well developed, well nourished, + ill appearing and + obese Eyes: PERRL, conjunctivae normal, anicteric sclerae ENMT: external ear and nose normal, oropharynx normal Neck: + torticollis (Neck is flexed to the left) Respiratory: no respiratory distress Auscultation: + diminished lung sounds and + crackles (Minimal crackles at the bases) Cardiovascular: Rate/Rhythm: regular rate and regular rhythm; not tachycardic Heart Sounds: normal S1 and normal S2; no murmur Extremities: + edema (1+ edema bilaterally) Gastrointestinal (Abdomen): Inspection/Auscultation: normal bowel sounds; abdomen not distended Percussion/Palpation: abdomen soft; abdomen nontender Colostomy site is intact Musculoskeletal: No acute arthritis involving any joint Skin: Has generalized bruising with chronic skin changes involving the legs Neurologic: Alert, awake and oriented. Generally weak Lymphatic: no cervical or axillary lymphadenopathy Results & Data Results & Data Vital Signs (Past 12 Hours) Vital Signs Temp Pulse Resp BP Pulse Ox O2 Del Method 09/22/22 07:30 Room Air 09/22/22 07:34 36.5 C 94 H 18 142/92 H 96 Room Air Laboratory Results Short CBC 09/22/22 Range/Units 05:44 WBC 12.28 H (4.8-10.8) K/ul Hgb 12.6 L (14.0-18.0) g/dl Hct 39.4 L (42.0-52.0) % Plt Count 190 (130-400) K/uL BMP 09/22/22 05:44 Sodium 139 Potassium 5.2 H Chloride 111 H Carbon Dioxide 22 BUN 60 H Creatinine 1.43 H Glucose 133 H Calcium 10.0 Medications Administered Current Inpatient Medications Acetaminophen (Acetaminophen 500 Mg Tab) 1,000 mg PO Q8 [facility] Stop: 10/15/22 21:59 Last Admin: 09/22/22 05:40 Dose: 1,000 mg Albuterol (Albuterol 0.083% Nebu Soln 3 Ml Vial) 2.5 mg INH Q4 PRN; Protocol PRN Reason: cough,SOB Stop: 10/05/22 11:17 Albuterol (Albut/Ipratrop 3mg/0.5mg Neb 3 Ml Vial) 3 ml INH Q4H PRN; Protocol PRN Reason: cough,SOB Stop: 10/05/22 11:17 Last Admin: 09/05/22 21:50 Dose: 3 ml Albuterol (Albuterol Hfa 8 Gm Inhaler) 2 puffs INH QID PRN PRN Reason: Shortness Of Breath Stop: 10/05/22 11:17 Allopurinol (Allopurinol 300 Mg Tab) 300 mg PO QAM [facility] Stop: 10/06/22 08:59 Last Admin: 09/22/22 08:55 Dose: 300 mg Aspirin (Aspirin 81 Mg Ectab) 81 mg PO QAM [facility] Stop: 10/06/22 08:59 Last Admin: 09/22/22 08:55 Dose: 81 mg Atorvastatin Calcium (Atorvastatin 40 Mg Tab) 40 mg PO [facility] Stop: 10/05/22 20:59 Last Admin: 09/21/22 21:39 Dose: 40 mg Clonazepam (Clonazepam 0.5 Mg Tab) 0.5 mg PO TID PRN PRN Reason: Muscle Spasm Stop: 10/15/22 20:59 Cyclobenzaprine HCl (Cyclobenzaprine Hcl 5 Mg Tab) 5 mg PO TID PRN PRN Reason: Muscle Spasm Stop: 10/12/22 08:59 Cyclobenzaprine HCl (Cyclobenzaprine Hcl 5 Mg Tab) 5 mg PO [facility] Stop: 10/18/22 20:59 Last Admin: 09/21/22 21:39 Dose: 5 mg Dextrose (Dextrose 50% 50 Ml Syringe) 25 - 50 ml IV UD PRN; Protocol PRN Reason: Hypoglycemia Protocol Stop: 10/05/22 10:51 Famotidine (Famotidine 20 Mg Tab) 20 mg PO [facility] Stop: 10/05/22 20:59 Last Admin: 09/21/22 21:39 Dose: 20 mg Finasteride (Finasteride 5 Mg Tab) 5 mg PO QAM [facility] Stop: 10/06/22 08:59 Last Admin: 09/22/22 08:55 Dose: 5 mg Fluticasone/Vilanterol (Fluticasone/Vilanterol 100/25mcg 14 Puffs/Inhaler) 1 puffs INH DAILY [facility] Stop: 10/06/22 08:59 Last Admin: 09/22/22 09:42 Dose: 1 puffs Furosemide (Furosemide 80 Mg Tab) 80 mg PO BID@0900,1200 [facility] Stop: 10/08/22 08:59 Last Admin: 09/16/22 16:58 Dose: Not Given Glucagon (Glucagon For Inj 1 Mg Vial) 1 mg SQ UD PRN; Protocol PRN Reason: Hypoglycemia Protocol Stop: 10/05/22 10:51 Glucose (Glucose 10 Tab/Tube) 4 - 8 tab PO UD PRN; Protocol PRN Reason: Hypoglycemia Treatment Stop: 10/05/22 10:51 Glucose (Glucose 40% Gel 15 Gm Tube) 15 - 30 gm PO UD PRN; Protocol PRN Reason: Hypoglycemia Protocol Stop: 10/05/22 10:51 Heparin Sodium (Porcine) (Heparin Sod 5,000 Unit/0.5 Ml Vial) 5,000 units SQ Q12 [facility] Stop: 10/05/22 20:59 Last Admin: 09/22/22 08:55 Dose: 5,000 units Heparin Sodium (Porcine) (Heparin 100 Unit/Ml 5ml Flush) 5 ml FLUSH PRN PRN PRN Reason: Flush Stop: 10/06/22 08:11 Last Admin: 09/22/22 05:40 Dose: 5 ml Hydroxyzine HCl (Hydroxyzine Hcl 25 Mg Tab) 25 mg PO TID PRN PRN Reason: Anxiety Stop: 10/05/22 11:17 Last Admin: 09/08/22 20:15 Dose: 25 mg Insulin Aspart (Insulin Aspart Per Unit Charge) 0 units SC ACHS [facility] Stop: 10/05/22 11:29 Last Admin: 09/22/22 08:56 Dose: 12 units Insulin Glargine (Lantus Per Unit Charge) 15 units SQ BID [facility] Stop: 10/05/22 20:59 Last Admin: 09/22/22 08:57 Dose: 15 units Loperamide HCl (Loperamide Hcl 2 Mg Cap) 2 mg PO QID PRN PRN Reason: Diarrhea Stop: 10/05/22 11:25 Metolazone (Metolazone 5 Mg Tablet) 5 mg PO DAILY PRN PRN Reason: WEIGHT GAIN >3LBS Stop: 10/07/22 10:59 Metoprolol Succinate (Metoprolol Succ 50mg Ext Rel Tab) 50 mg PO QAM [facility] Stop: 10/05/22 11:17 Last Admin: 09/22/22 08:55 Dose: 50 mg Metoprolol Succinate (Metoprolol Succ 25mg Ext Rel Tab) 25 mg PO QPM [facility] Stop: 10/05/22 20:59 Last Admin: 09/21/22 21:39 Dose: 25 mg Miscellaneous (Carbohydrates For Hypoglycemia ) 15 - 30 gm PO UD PRN PRN Reason: Hypoglycemia Protocol Stop: 10/05/22 10:51 Pantoprazole Sodium (Pantoprazole 40 Mg Tab) 40 mg PO QAM [facility] Stop: 10/06/22 08:59 Last Admin: 09/22/22 08:55 Dose: 40 mg Promethazine HCl (Promethazine Hcl 25 Mg Tab) 25 mg PO Q6H PRN PRN Reason: NAUSEA/VOMITING Stop: 10/05/22 11:17 Sertraline HCl (Sertraline Hcl 50 Mg Tablet) 50 mg PO QAM [facility] Stop: 10/06/22 08:59 Last Admin: 09/22/22 08:55 Dose: 50 mg Spironolactone (Spironolactone 12.5 Mg Tab) 12.5 mg PO QAM [facility] Stop: 10/06/22 08:59 Last Admin: 09/16/22 09:52 Dose: 12.5 mg Tramadol HCl (Tramadol Hcl 50 Mg Tablet) 50 mg PO Q4H PRN PRN Reason: breakthrough ppain Stop: 10/17/22 12:17 Last Admin: 09/21/22 11:28 Dose: 50 mg Trolamine Salicylate (Trolamine Salicylate 10% Crm 255 Appln/85 Gm Tube) 1 appln EXT BID [facility] Stop: 10/18/22 20:59 Last Admin: 09/22/22 08:56 Dose: 1 appln Umeclidinium [place] (Umeclidinium [place] 62.5mcg/Blister 7 Puffs/Inhaler) 1 puffs INH DAILY [facility] Stop: 10/06/22 08:59 Last Admin: 09/22/22 08:56 Dose: 1 puffs Vitamin D (Cholecalciferol 1,000 Units 25 Mcg Tab) 2,000 units PO QAM [facility] Stop: 10/06/22 08:59 Last Admin: 09/22/22 08:55 Dose: 2,000 units (10) CHF (congestive heart failure) Heart failure chronicity: acute Heart failure type: unspecified Qualified Code(s): I50.9 - Heart failure, unspecified
[2022-09-22 11:32] LABS: Urea Nitrogen, Random Urine 407 mg/dL
[2022-09-22 12:41] VITALS: BP 131/72; PULSE 76
--- NOTE | 2022-09-23 09:26 | Discharge Summary ---
Date of Service September 23, 2022 Admission HPI Per Admitting Provider This is a 76 y/o male with stage IV lung cancer, CKD4, insulin-requiring DM2, COPD, chronic combined systolic and diastolic HF, anemia of CKD, HTN, BPH, Huma syndrome, chronic gout, secondary hyperparathyroidism, CAD, and venous stasis dermatitis of LE who presents to the ED today for worsening MARQUIS. He was seen in the ED yesterday for the same complaint, which has been ongoing for the last ten days. History from the patient is somewhat limited due to his current mental status so additional history was obtained from his family at the beside and from review of the outpatient records. He has noted a worsening headache that he has described to his family as it "feels like it's going to split open" - now with associated neck pain. Has been complaining most of frontal headache, pain in left side of head and now into the left neck. His family also notes intermittent confusion over the last couple of days described as being "incoherent" during conversations at times. His oral intake has been dramatically limited due to the severity of the pain. Yesterday, he ate a small amount of oatmeal and some peaches but reports that he can't chew b/c of the severe MARQUIS. No output in his colostomy bag today which is unusual per family His abdomen appears more distended but no complaints of nausea or vomiting. His family denies any recent fevers. At present, he feels okay if he doesn't move his head - received med (morphine per report) in the ambulance with some relief. Has hydrocodone at home which hasn't helped. Also tried Extra Strength Tylenol without relief. Of note, pt was recently admitted to this facility with SOB that was thought to be multifactorial - CHF, new onset afib w/ RVR, severe COPD, underlying lung cancer. His family reports that he has been using O2 2.5 L continuously since being home. He has chronic FAULKNER, which is unchanged. No increase in peripheral edema. Uses a walker for ambulation but cannot get around at present due to MARQUIS and weakness. Admission Exam Per Admitting Provider Constitutional: + obese; no acute distress Eyes: left conjunctival injection with small amount of purulent drainage in lashes, mild pain with EOM on left Otherwise EOMI, pupils responsive to light Neck: trachea midline Respiratory: no respiratory distress and no labored breathing Auscultation: + diminished lung sounds and + crackles (at bases); no wheezes Cardiovascular: Rate/Rhythm: regular rate and regular rhythm Vessels: posterior tibial pulses present and radial pulses present Extremities: + edema (trace bilateral) left chest with port in place Gastrointestinal (Abdomen): Inspection/Auscultation: + abdomen distended (mild) and normal bowel sounds Percussion/Palpation: abdomen soft +ostomy bag with scant brown stool Skin: stasis changes bilateral LE, ecchymosis on UE Neurologic: moves all extremities; no focal motor deficits Cranial Nerves: EOM intact bilaterally, normal facial strength, tongue midline and able to rotate head bilaterally Principal Diagnosis Cervicogenic headache, 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, metastatic primary lung cancer, CKD, sleep apnea wears O2 at night 2 to 2.5 L Discharge Exam Lying in bed comfortably Constitutional well developed, well nourished, + ill appearing and + obese Eyes PERRL, conjunctivae normal, anicteric sclerae ENMT external ear and nose normal, oropharynx normal Neck + torticollis (Neck is flexed to the left) Respiratory no respiratory distress Auscultation: + diminished lung sounds and + crackles (Minimal crackles at the bases) Cardiovascular Rate/Rhythm: regular rate and regular rhythm; not tachycardic Heart Sounds: normal S1 and normal S2; no murmur Extremities: + edema (1+ edema bilaterally) Gastrointestinal (Abdomen) Inspection/Auscultation: normal bowel sounds; abdomen not distended Percussion/Palpation: abdomen soft; abdomen nontender Lymphatic no cervical or axillary lymphadenopathy Discharge Data Allergies Allergy/AdvReac Type Severity Reaction Status Date / Time No Known Allergies Allergy U Verified 08/05/22 16:20 Consultations 09/05/22 09:45 ED Decision to Admit Stat 09/05/22 11:18 Consult Neurology Routine 09/06/22 12:44 Consult Orthopedic Surgery Routine 09/08/22 13:32 Consult Pain Management Routine Ordered Studies 09/06/22 12:35 CT head/brain wo con Urgent 09/06/22 12:41 CT neck [CT cervical spine wo con] Urgent 09/07/22 16:13 IR lumbar puncture diagnostic Routine 09/09/22 20:02 CT head/brain wo con Stat Hospital Course (1) Cervicogenic headache: Per neuro, Cervicogenic headache, Cervical dystonia --Outpatient MRI done on 09/02/22 showed No evidence of intracranial metastatic disease or acute intracranial abnormality. Finding seen in the setting of normal pressure hydrocephalus. Recommend clinical correlation. Moderate chronic small vessel ischemic disease. --Head CT:This study is nearly nondiagnostic secondary to patient positioning. No acute intracranial abnormality identified on this markedly limited study. Consider repeat imaging if there is further clinical merit. --Neck CT:There is no evidence of fracture or subluxation involving the cervical spine. Osteopenia and spondylotic change LP done and is unremarkable based on fluid analysis. Protein elevated, pressure WNL Neurologist recommendations noted -Had drowsiness and confusion on 09/09/22 likely due to medication side effects in view of poor renal function and baclofen was discontinued Regimen adjusted today due to worsening but similar pain - started on Klonopin 0.5mg TID, scheduled Tylenol 1,000mg TID, transitioned Flexeril to PRN and scheduled qHS, discontinued gabapentin Pain mgmt evaluated- recommends Botox injection but can only be done as outpatient. S/p cervical trigger point injections and nerve blocks by pain mgmt this morning with some pain relief, improved ROM Avoid NSAIDs due to CKD Warm compresses ordered to neck and upper back. No pain at rest and movement of the neck towards the right side is limited with minimal pain Advised to continue the physical therapy Has been getting physical therapy and awaiting placement He has been accepted to [facility] and will be discharged there at 1:00 today (2) Cervical dystonia: As above He has not been trying to keep his his head is straight No acute pain in the neck (3) Cervicalgia: Secondary to cervical dystocia Not in any acute distress at rest Pain and spasm seems to be controlled We will continue the current management for cervicalgia (4) Hyponatremia: Na 127 today. FeNa is 1.7. Possibly 2/2 NSAID use recently but differential is broad with known CKD, h/o lung cancer and persistent pain causing SIADH. Urine osm are low normal, no polydipsia. Euvolemic. Sodium has come up to 134-we will continue to monitor We will check PRP tomorrow-sodium level remains normal at 139 and creatinine has improved to 1.43 (5) UTI (urinary tract infection): Present on arrival Urine culture growing Enterococcus faecalis Completed ampicillin treatment (6) Metastatic primary lung cancer: Follows with Dr. Bravo - received chemo x 1 but didn't tolerate, not planning for additional chemo at this point No acute respiratory symptoms (7) Sleep apnea: Wears O2 at night - 2-2.5 L (8) Left conjunctivitis: Tx complete (9) CKD (chronic kidney disease): around his baseline, noted two doses of naproxen in 48 hours for severe pain, will not continue with this given hyponatremia and slightly elevated K at one point. Monitor renal function Continue home lasix Creatinine remains stable at 1.63 as of 09/19/2022 (10) CHF (congestive heart failure): chronic, euvolemic, stable. (11) Diabetes mellitus, type 2: Continue basal insulin with sliding scale BSG ACHS, 1782, 105 continue current regimen blood sugars viewed by ok Diabetic diet a1c 7.5/08/19/22 (12) COPD with emphysema: Chronic, stable. Cont current therapy. Plan Continue other home medications as appropriate DVT Px:Heparin SQ Code Status: Full code CM working on placement for rehab. Will need arrangement with Pain mgt to schedule injection above prior to dc. Initial facilities declined but search expanded and [facility] updated. 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, metastatic primary lung cancer, CKD, sleep apnea wears O2 at night 2 to 2.5 L Condition on Discharge: Fair Activity: Resume your previous activity Non-emergency contact: Primary Care Provider Call non-emergency contact if: you have any medication questions and your symptoms worsen Follow-up/Referrals: Sonali Flores CRNP [Primary Care Provider] - (Please make an appointment with your PCP within 1 week following discharge from the facility) Diet: Carb Consistent or DM2 Addtl Attending Provider Instructions: Please take precautions to avoid falls Take your medications as advised Botox injection in the cervical area can be done as an outpatient as per recommendation from pain therapist Please keep appointments with your healthcare providers Pending Studies at Discharge: No Stand-Alone Forms: My [facility] Skilled Items Patient informed of condition?: Yes DNR: No Discharge Level of Care: Skilled Communicable Disease: No Discharge Prognosis: Stable Lines: None Urinary Catheter: No Medications and DC Order Prescriptions: New clonazepam 0.5 mg Tablet 0.5 mg PO TID PRN (Reason: spasm) 5 Days Qty: 15 0RF tramadol 50 mg Tablet 50 mg PO Q4H PRN (Reason: pain) 5 Days Qty: 20 0RF cyclobenzaprine 5 mg Tablet 5 mg PO TID PRN (Reason: muscle spasm) Qty: 20 0RF Continued cholecalciferol (vitamin D3) 50 mcg (2,000 unit) capsule 50 mcg PO QAM famotidine 20 mg tablet 20 mg PO HS finasteride 5 mg tablet 5 mg PO QAM Qty: 90 0RF Trelegy Ellipta 100-62.5-25 mcg blister with device 1 inh inhalation DAILY Qty: 3 0RF (DME) Portable Oxygen Misc See Rx Instructions .Route Qty: 1 0RF Rx Instructions: portable oxygen at 3LPm via N/c continuously. BECCA:99-Test for conserving device atorvastatin 40 mg Tablet 40 mg PO HS albuterol sulfate 2.5 mg /3 mL (0.083 %) Solution For Nebulization 2.5 mg INHALATION Q4 PRN (Reason: cough,SOB) Patient Comments: USE ABOUT 4 X PER DAY , WITH IPRATROPIUM ALREADY MIXED TOGETHER (IN MED MAIL ORDER) omeprazole 40 mg Capsule,Delayed Release(Dr/Ec) 40 mg PO QAM aspirin [Dane Low Dose Aspirin] 81 mg Tablet,Delayed Release (Dr/Ec) 81 mg PO QAM furosemide 80 mg Tablet 80 mg PO BID Rx Instructions: TAKES QAM AND THEN 4 HOURS LATER. (CONFIRMED WITH PT PAT CALL 02/03/22) allopurinol 300 mg Tablet 300 mg PO QAM insulin aspart U-100 [Novolog FlexPen U-100 Insulin] 100 unit/mL Insulin Pen 1 dose SUBCUT BID Patient Comments: USUALLY TWICE A DAY, EAT ONLY TWICE A DAY BREAKFAST AND SUPPER Rx Instructions: SLIDING SCALE 20-30 units based on BSG spironolactone 25 mg Tablet 12.5 mg PO QAM Qty: 0 0RF metolazone 5 mg Tablet 5 mg PO WK Rx Instructions: TAKE 30 MINS PRIOR TO TAKING LASIX. promethazine 25 mg Tablet 25 mg PO Q6H PRN (Reason: NAUSEA/VOMITING) Patient Comments: NOT VERY OFTEN albuterol sulfate [ProAir HFA] 90 mcg/actuation Hfa Aerosol Inhaler 2 puff INHALATION QID PRN (Reason: Shortness Of Breath) sertraline 50 mg Tablet 50 mg PO QAM ipratropium-albuterol 0.5 mg-3 mg(2.5 mg base)/3 mL Solution For Nebulization 3 ml INHALATION Q4H PRN (Reason: cough,SOB) hydroxyzine HCl 25 mg Tablet 25 mg PO TID PRN (Reason: Anxiety) guaifenesin [Mucinex] 600 mg Tablet Extended Release 12hr 600 mg PO AMHS loperamide 2 mg Tablet 2 mg PO QID PRN (Reason: Diarrhea) Changed insulin glargine [Lantus U-100 Insulin] 100 unit/mL Solution 15 unit SUBCUT HS Qty: 10 0RF Rx Instructions: only give 20 units if BG is less than 100mg/dl metoprolol succinate 50 mg Tablet Extended Release 24 Hr 50 mg PO BID Qty: 1 0RF Rx Instructions: 50mg in am and 25mg in pm Discharge Orders: Discharge Order (Routine); Ordered 09/22/22 Ordered By: Antonia Benavides Admission Data Admit Date/Time: 09/06/22 13:40 Attending Provider: Antonia Benavides Admit Provider: Shravan Lowry Primary Care Provider: Sonali Flores Other Providers: Shravan Lowry ; Mynor Mooney ; Luis Martinez ; Lukas Hinojosa ; Sandra Ceja ; [facility] ; [facility] ; Sara Davis ; Harini Grier [facility] [place] ; Yara Juan Other Interventions: Discharge Summary Assessment (RN) Last Done: 09/22/22 13:37
== END 2022-09-22 13:37 | DRG 92 ==
LOC: ED 06:22 → 3N 06:22 → SUATTDRO 10:24 → 3N 11:49 → SUATTDRO 09-06 13:40